=== PATIENT | male | born 1965 | race Caucasian/White ===

== ENCOUNTER → 2017-12-15 13:35 | Outpatient (REF) | payer MEDICAID, SELFPAY ==
[2017-12-15 21:59] LABS: Amphetamine/Metha Screen,Urine Negative ng/mL (<1000); Barbiturates Screen,Urine Negative ng/mL (<200); Benzodiazepines Screen,Urine Negative ng/mL (200); Cannabinoid Screen,Urine Negative ng/mL (<50); Cocaine Screen,Urine Negative ng/g (<300); Methadone Screen,Urine Negative ng/mL (<300)
[2017-12-15 22:27] LABS: Opiate Screen,Urine Negative ng/mL (<300); Phencyclidine Screen,Urine Negative ng/mL (<25)
== END ==
LOC: LAB 13:35
PROVIDERS: Visit Provider Emergency Medicine
DX: Z79.899 Other long term (current) drug therapy (principal)
CPT/HCPCS: 80305

== ENCOUNTER → 2018-03-11 13:25 | Outpatient (CLI) | payer MEDICAID, SELFPAY ==
[2018-03-11 18:06] LABS: Basophils # 0.1 K/mm3 (0-0.2); Basophils % 0.7 % (0.1-2.0); Eosinophils # 0.1 K/mm3 (0.0-0.4); Eosinophils % 1.2 % (0.1-12.0); Hematocrit 46.8 % (42.0-52.0); Hemoglobin 14.8 g/dL (14.1-18.0); Lymphocytes # 2.7 K/mm3 (0.7-4.5); Mean Corpuscular HGB Conc 31.7 g/dL (31.8-35.4); Mean Corpuscular Hemoglobin 28.4 pg (27.0-31.2); Mean Corpuscular Volume 89.9 fl (80-94); Mean Platelet Volume 8.5 fl (7.4-10.4); Monocytes # 0.5 K/mm3 (0.1-1.0); Monocytes % 6.2 % (1.7-9.3); Neutrophils # 5.4 K/mm3 (1.8-7.8); Neutrophils % 61.1 % (37.0-80.0); Platelet Count 341 K/mm3 (142-424); Red Blood Count 5.21 M/mm3 (4.60-6.20); Red Cell Distribution Width 14.3 % (11.5-17.5); White Blood Count 8.8 K/mm3 (4.8-10.8)
[2018-03-11 18:30] LABS: Alanine Aminotransferase 16 U/L (12-78); Albumin Level 3.8 gm/dL (3.4-5.0); Alkaline Phosphatase 111 U/L (46-116); Anion Gap 18.5 mEq/L (5-15); Aspartate Amino Transferase 10 U/L (15-37); Bilirubin,Total 0.3 mg/dL (0.2-1.0); Blood Urea Nitrogen 28 mg/dL (7-18); Calcium 10.3 mg/dL (8.5-10.1); Carbon Dioxide 22 mmol/L (21.0-32.0); Chloride 94 mmol/L (98-107); Chol/HDL Ratio 10.3 (1-3.5); Cholesterol 351 mg/dL (140-200); Estimated Glomerular Filt Rate 32 ml/min (>60); GFR (African American) 38 ML/MIN (>60); Globulin 3.9 gm/dl (1.3-3.2); HDL Cholesterol 34 mg/dL (27-67); Potassium 4.5 mmoL/L (3.5-5.1); Sodium 130 mmol/L (136-145); Total Protein,Serum 7.7 gm/dL (6.4-8.2)
[2018-03-11 18:37] LABS: Glucose 482 mg/dL (74-106); Triglycerides 527 mg/dL (30-200)
[2018-03-11 19:09] LABS: Hemoglobin A1C 12.2 % (0.0-7.0)
== END ==
PROVIDERS: Visit Provider Emergency Medicine
DX: E11.9 Type 2 diabetes mellitus without complications (principal); Z79.891 Long term (current) use of opiate analgesic
CPT/HCPCS: 80053; 80061; 83036; 85025

== ENCOUNTER → 2018-03-16 13:33 | Outpatient (REF) | payer MEDICAID, SELFPAY ==
[2018-03-16 17:48] LABS: Anion Gap 17.3 mEq/L (5-15); Blood Urea Nitrogen 25 mg/dL (7-18); Carbon Dioxide 24 mmol/L (21.0-32.0); Chloride 94 mmol/L (98-107); Creatinine,Serum 1.66 mg/dL (0.70-1.30); Estimated Glomerular Filt Rate 44 ml/min (>60); GFR (African American) 53 ML/MIN (>60); Potassium 4.3 mmoL/L (3.5-5.1); Sodium 131 mmol/L (136-145)
[2018-03-16 17:54] LABS: Glucose 408 mg/dL (74-106)
[2018-03-16 19:01] LABS: Amphetamine/Metha Screen,Urine Negative ng/mL (<1000); Barbiturates Screen,Urine Negative ng/mL (<200); Benzodiazepines Screen,Urine Negative ng/mL (200); Cannabinoid Screen,Urine Negative ng/mL (<50); Cocaine Screen,Urine Negative ng/g (<300); Methadone Screen,Urine Negative ng/mL (<300); Opiate Screen,Urine Negative ng/mL (<300); Phencyclidine Screen,Urine Negative ng/mL (<25)
== END ==
LOC: LAB 13:33
PROVIDERS: Visit Provider Emergency Medicine
DX: E11.9 Type 2 diabetes mellitus without complications (principal)
CPT/HCPCS: 80048; 80305

== ENCOUNTER 2018-03-20 12:59 | Inpatient (IN) ==
--- NOTE | 2018-03-20 13:14 | Emergency Department Note ---
ED Disposition Clinical Impression: STEMI (ST elevation myocardial infarction), Diabetes, Hyperlipidemia, Tobacco use disorder Disposition: Still a Patient Condition on Discharge: Fair - Critical Care Critical Care Time: No Attestation: On 03/20/18, the high probability of a clinically significant, sudden or life threatening deterioration of the following system(s) required my full and direct attention, intervention and personal management. The time I documented below is in addition to time spent performing reported procedures but includes the following listed in this critical care notation. Medical Decision Making - Uziel Inquiry Pt receiving controlled substance: No Uziel was queried for this patient: No Vital Signs: 03/20/18 13:00 Temperature 97.7 F Temperature Source Oral Pulse Rate [Right Brachial] 99 H Respiratory Rate 22 Blood Pressure [Right Arm] 168/70 Blood Pressure Mean [Right Arm] 102 Blood Pressure Source [Right Arm] Manual Cuff/ Auscultation Blood Pressure Position [Right Arm] Sitting 02 Sat by Pulse Oximetry 98 Oxygen Delivery Method Room Air - Lab Data Lab Results 03/20/18 13:53: Activated Clotting Time 370 H* Orders (Tests/Meds): ED MEDICATIONS Generic Name Dose Route Start Last Admin Trade Name Freq PRN Reason Stop Dose Admin Hydrocodone Bitart/Acetaminophen 1 tab 03/20/18 14:42 Jeffers 5/325mg Tablet PO 04/19/18 14:41 Q4HP PRN Mild Pain Hydrocodone Bitart/Acetaminophen 2 tab 03/20/18 14:42 Jeffers 5/325mg Tablet PO 04/19/18 14:41 Q4HP PRN Moderate to Severe Pain Aspirin 81 mg 03/21/18 09:00 Aspirin 81mg Enteric Coated Tablet PO 04/20/18 08:59 DAILY CYNDEE Famotidine 20 mg 03/20/18 21:00 Pepcid 20mg Tablet PO 04/19/18 20:59 HS CYNDEE Fentanyl Citrate 50 mcg 03/20/18 14:05 03/20/18 14:08 Fentanyl 100mcg/2ml Vial IV 03/21/18 14:05 100 mcg Q3MINP PRN Administration Moderate to Severe Pain Fentanyl Citrate 25 mcg 03/20/18 14:05 Fentanyl 250mcg/5ml Vial IV 03/21/18 14:05 Q3MINP PRN Moderate to Severe Pain Fentanyl Citrate 50 mcg 03/20/18 14:05 Fentanyl 250mcg/5ml Vial IV 03/21/18 14:05 Q3MINP PRN Moderate to Severe Pain Fentanyl Citrate 25 mcg 03/20/18 14:05 Fentanyl 100mcg/2ml Vial IV 03/21/18 14:05 Q3MINP PRN Moderate to Severe Pain Fentanyl Citrate 50 mcg 03/20/18 13:39 Fentanyl 100mcg/2ml Vial IV 03/21/18 13:39 Q3MINP PRN Moderate to Severe Pain Fentanyl Citrate 25 mcg 03/20/18 13:39 Fentanyl 250mcg/5ml Vial IV 03/21/18 13:39 Q3MINP PRN Moderate to Severe Pain Fentanyl Citrate 25 mcg 03/20/18 13:39 Fentanyl 100mcg/2ml Vial IV 03/21/18 13:39 Q3MINP PRN Moderate to Severe Pain Fentanyl Citrate 50 mcg 03/20/18 13:39 Fentanyl 250mcg/5ml Vial IV 03/21/18 13:39 Q3MINP PRN Moderate to Severe Pain Flumazenil 0.2 mg 03/20/18 14:05 Romazicon 0.1mg/Ml 5ml Vial IV 03/20/18 23:00 NEEDED PRN Sedation Flumazenil 0.2 mg 03/20/18 13:39 Romazicon 0.1mg/Ml 5ml Vial IV 03/20/18 23:00 NEEDED PRN Sedation Heparin Sodium (Porcine) 10,000 unit 03/20/18 14:05 Heparin 1,000 Units/Ml 10ml Vial (Cable Way Operator) IV 03/20/18 18:05 NEEDED PRN Emergency Box [employer] Trades Worker Heparin Sodium (Porcine) 10,000 unit 03/20/18 13:39 Heparin 1,000 Units/Ml 10ml Vial (Cable [address] Operator) IV 03/20/18 17:39 NEEDED PRN Emergency Box [employer] Tr[employer] Worker Heparin Sodium/Dextrose 500 mls @ 26 mls/hr 03/20/18 13:45 03/20/18 13:44 Heparin 25,000 Units In D5w 500ml Premix IV 04/19/18 13:44 26 mls/hr .[id number] CYNDEE Administration Nitroglycerin/Dextrose 250 mls @ 1.5 mls/hr 03/20/18 13:45 03/20/18 13:45 Nitroglycerin 50mg/250ml D5w IV 04/19/18 13:44 5 mcg/min .Q24H CYNDEE 1.5 mls/hr Administration Protocol 5 MCG/MIN Sodium Chloride 1,000 mls @ 25 mls/hr 03/20/18 14:15 03/20/18 14:08 Sod Chlor 0.9% 1000ml Bag IV 03/21/18 14:05 25 mls/hr .Q25H CYNDEE Administration Eptifibatide 100 mls @ 6.8 mls/hr 03/20/18 14:10 03/20/18 14:14 Integrilin 200mg/100ml Bottle IV 03/21/18 04:52 6.8 mls/hr .[id number] ONE Administration Sodium Chloride 1,000 mls @ 25 mls/hr 03/20/18 13:45 Sod Chlor 0.9% 1000ml Bag IV 03/21/18 13:39 .Q25H CYNDEE Insulin Human Lispro 0 unit 03/20/18 16:30 Humalog 100 Units/Ml 3ml Vial (Ssi) SQ 04/19/18 16:29 ACHS CYNDEE Protocol Levothyroxine Sodium 50 mcg 03/21/18 07:00 Synthroid 50mcg (0.05mg) Tablet PO 04/20/18 06:59 DAILYDM CYNDEE Midazolam HCl 1 mg 03/20/18 14:05 03/20/18 14:08 Midazolam 1mg/Ml 5ml Vial IV 03/21/18 14:05 6 mg Q3MINP PRN Administration Sedation Midazolam HCl 1 mg 03/20/18 14:05 Midazolam 2mg/2ml Vial IV 03/21/18 14:05 Q3MINP PRN Sedation Midazolam HCl 1 mg 03/20/18 13:39 Midazolam 1mg/Ml 5ml Vial IV 03/21/18 13:39 Q3MINP PRN Sedation Midazolam HCl 1 mg 03/20/18 13:39 Midazolam 2mg/2ml Vial IV 03/21/18 13:39 Q3MINP PRN Sedation Miscellaneous 1 each 03/20/18 14:42 Consider Dual Antiplatelet Therapy For Stent * 04/19/18 14:41 NEEDED PRN Reminder for s/p stent Naloxone HCl 0.4 mg 03/20/18 14:05 Narcan 0.4mg/Ml Vial IV 03/21/18 14:05 Q5MINP PRN Decreased respirations Naloxone HCl 0.4 mg 03/20/18 13:39 Narcan 0.4mg/Ml Vial IV 03/21/18 13:39 Q5MINP PRN Decreased respirations Nitroglycerin 800 mcg 03/20/18 14:05 03/20/18 14:19 Nitroglycerin 800mcg/8ml Syr (Cable [address] Operator) IV 03/21/18 14:05 800 mcg NEEDED PRN Administration Emergency Box [employer] Trades Worker Nitroglycerin 800 mcg 03/20/18 13:39 Nitroglycerin 800mcg/8ml Syr (Cable [address] Operator) IV 03/21/18 13:39 NEEDED PRN Emergency Box Electronic Instrument Trades Worker Ticagrelor 90 mg 03/20/18 21:00 Brilinta 90mg Tablet PO 04/19/18 20:59 BID CYNDEE Discontinued Medications Generic Name Dose Route Start Last Admin Trade Name Freq PRN Reason Stop Dose Admin Aspirin 324 mg 03/20/18 13:41 03/20/18 13:44 Aspirin 81mg Chewable Tablet PO 03/20/18 13:42 324 mg ONCE ONE Administration Diphenhydramine HCl 50 mg 03/20/18 14:05 Benadryl 50mg/1ml Vial IV 03/20/18 14:06 ONCE ONE Diphenhydramine HCl 50 mg 03/20/18 13:39 Benadryl 50mg/1ml Vial IV 03/20/18 13:40 ONCE ONE Heparin Sodium (Porcine) 10,000 unit 03/20/18 13:41 03/20/18 13:44 Heparin Sodium 5,000 Units/Ml Vial IV 03/20/18 13:42 10,000 unit ONCE ONE Administration Heparin Sodium/Sodium Chloride 3,000 unit 03/20/18 14:05 03/20/18 14:07 Heparin 1000 Units/500ml Ns (Cable [address] Operator) IV 03/20/18 14:06 3,000 unit ONCE ONE Administration Heparin Sodium/Sodium Chloride 3,000 unit 03/20/18 13:39 Heparin 1000 Units/500ml Ns (Cable [address] Operator) IV 03/20/18 13:40 ONCE ONE Sodium Chloride 1,000 mls @ 999 mls/hr 03/20/18 13:45 03/20/18 13:44 Sod Chlor 0.9% 1000ml Bag IV 03/20/18 14:45 999 mls/hr .Q1H1M CYNDEE Administration Iopamidol 240 ml 03/20/18 14:42 03/20/18 14:43 Rad-Isovue 370; 150ml IV 03/20/18 14:43 240 ml ONCE ONE Administration Lidocaine HCl 20 ml 03/20/18 14:05 03/20/18 14:07 Lidocaine 1% 20ml Mdv IJ 03/20/18 14:06 20 ml ONCE ONE Administration Lidocaine HCl 20 ml 03/20/18 13:39 Lidocaine 1% 20ml Mdv IJ 03/20/18 13:40 ONCE ONE Ticagrelor 90 mg 03/20/18 13:41 03/20/18 13:44 Brilinta 90mg Tablet PO 03/20/18 13:42 90 mg ONCE ONE Administration Verapamil HCl 2.5 mg 03/20/18 14:05 Verapamil 2.5mg/Ml 2ml Vial IV 03/20/18 14:06 ONCE ONE Verapamil HCl 2.5 mg 03/20/18 13:39 Verapamil 2.5mg/Ml 2ml Vial IV 03/20/18 13:40 ONCE ONE ORDERS Category Date Time Status Consult to Cardiac Rehabilitation [CONS] Routine Cons 03/20/18 14:42 Active CA echo 2d congenital Routine Exams 03/21/18 06:00 Ordered Basic Metabolic Panel Routine Lab 03/21/18 06:00 Ordered - ECG Data Tracing #1 Normal sinus rhythm 81/min ST elevation in inferior leads with reciprocal changes in the lateral leads, NOTIFIED interventional cardiology Dr. Kaur. ECG initial impression date: 03/20/18 ECG initial impression time: 12:50 Medical Decision Narrative: Again the patient is started on ecasa, heparin iv 10,000 units, nitroglycerin drip morphine IV and IV fluids degrees of wrist pain from 06/10-02/08. 1300 i SPOKE WITH dR Kaur THE GAS PUMPER. 1330 THE PATIENT WAS TAKEN TO THE ELECTRICAL LINE MECHANIC. 1336 THE TROPONIN REPORTED 4.06 Chest Pain HPI - General Chief Complaint: Chest Pain Stated Complaint: acute onset cp Time Seen by Provider: 03/20/18 13:00 Mode of Arrival: Ambulatory Limitations: No Limitations Description of Symptoms (Recalled from ER Triage Doc. by RN): pt presents after having began experiencing chest pain yesterday while at home. pt describes the pain as pressure and sharp at the same time. - History of Present Illness HPI narrative: 52 years old white male smoker diabetic and hyperlipidemic. Yesterday at 8 PM he developed an ongoing left upper chest pain. He arrived to the ED at 1247 obtained a 12-lead EKG that was positive for an ST elevation IWMI. Cable Way Operator was activated AND I contacted the on-call code inspector Dr. Mejias at 1300 and he is on his way to the Cable [address] Operator. She was started on 10,000 units of heparin, IV fluids, nitroglycerin drip and morphine IV. I spoke with his father and updated him about the sITUATION. MD complaint: chest pain indicative of cardiac Onset (ago): hour(s) (17 HOURS.) Time: 20:00 (YESTERDAY) Duration: constant Activity at onset: during rest Pain location: left chest Severity: severe Quality: sharp Pain radiation: none Relieving factors: nothing Exacerbating factors: exertion Associated symptoms: diaphoresis (He is deaf), other Risk Factors for CAD: Hypertension, Hypercholesterolemia, Family Hx of CAD, Diabetes, Smoking Treatments prior to or on arrival for Cardiac Chest Pain: aspirin, nitroglycerin - Related Data Home Medications Medication Instructions Recorded Confirmed colchicine 0.6 mg tablet 0.6 mg PO DAILY PRN tab 12/15/17 03/20/18 hydroxyzine HCl 50 mg tablet 100 mg PO Q6H PRN tab 12/15/17 03/20/18 ALPRAZolam [Xanax 1mg tab] 1 mg PO TID 03/20/18 03/20/18 Atorvastatin Calcium [Lipitor 80mg 80 mg PO QHS 03/20/18 03/20/18 Tablet] Blood Sugar Diagnostic [Premier 0 strip .ROUTE .MEDSUPPLY 03/20/18 03/20/18 Test Strip] Budesonide/Formoterol Fumarate 2 puff INHALATION BID 03/20/18 03/20/18 [Symbicort 160-4.5 Mcg Inhaler] Carvedilol [Carvedilol 6.25mg Tab] 6.25 mg PO DAILY 03/20/18 03/20/18 Citalopram Hydrobromide [Celexa] 40 mg PO DAILY 03/20/18 03/20/18 Levothyroxine Sodium [Synthroid 50 mcg PO DAILY 03/20/18 03/20/18 50mcg (0.05mg) tab] Pantoprazole Sodium [Protonix 40mg 40 mg PO QAM 03/20/18 03/20/18 tablet] lamoTRIgine [Lamotrigine] 25 mg PO DAILY 03/20/18 03/20/18 raNITIdine HCl [Ranitidine HCl] 150 mg PO DAILY 03/20/18 03/20/18 Previous Rx's Medication Instructions Recorded fluticasone 50 mcg/actuation nasal 1 spray INTRANASAL BID PRN #16 g 02/09/18 spray,suspension Allergies Allergy/AdvReac Type Severity Reaction Status Date / Time codeine [CODEINE] Allergy Unknown ITCHING, Verified 03/20/18 15:58 N/V opiates Allergy Mild Rash Uncoded 03/16/18 11:53 [facility] History I have reviewed the patient's past medical history: Yes Medical History: Reports:: Anxiety, Depression, Diabetes Mellitus Type 2, Hyperlipidemia, Hypertension Other Surgeries: Yes: Angiogram, Colonoscopy, Other Amputation: No Fractures: Yes Comment: fx femur - Social History Educational Level: Completed High School Smoking Status: Never smoker Tobacco Type: cigarettes # Packs/Day (cigarettes): 20 Alcohol Intake: never Substance Use Type: denies use - Psychiatric History Expresses thoughts of harming self/others: None Suicide Plan Description: No Plan Pschychiatric History:: Reports:: Anxiety, Depression Family Hx:: Heart Attack, Coronary Artery Disease ROS Obtained: Yes All systems reviewed & no additional complaints Physical Exam - General General appearance: alert, other (He is diaphoretic.) - Head Head exam: atraumatic, normocephalic, normal inspection - Eye Eye exam: Present: normal appearance, PERRL, EOMI - ENT ENT exam: Present: normal exam, normal oropharynx, mucous membranes moist, TM's normal bilaterally, normal external ear exam - Neck Neck exam: Present: normal inspection, full ROM, trachea midline. Absent: meningismus, lymphadenopathy - Chest Chest inspection: Present: normal inspection, symmetric chest wall rise. Absent : tenderness - Respiratory Respiratory exam: Present: normal lung sounds bilaterally. Absent: respiratory distress - Cardiovascular Cardiovascular exam: Present: regular rate, normal rhythm. Absent: JVD - Abdominal Exam Abdominal exam: Present: soft, normal bowel sounds. Absent: distention, tenderness, guarding - Extremities Exam Extremities exam: Present: normal inspection, full ROM, normal capillary refill. Absent: calf tenderness - Back Exam Back exam: Present: normal inspection. Absent: tenderness - Neurological Exam Neurological exam: Present: alert, oriented X3, CN II-XII intact, motor sensory deficit, reflexes normal - Psychiatric Psychiatric exam: Present: normal affect, normal mood - Skin Skin exam: Present: warm, intact, normal color, diaphoresis
[2018-03-20 16:45] LABS: Basophils # 0.1 K/mm3 (0-0.2); Basophils % 0.5 % (0.1-2.0); Eosinophils # 0.2 K/mm3 (0.0-0.4); Eosinophils % 1.7 % (0.1-12.0); Hematocrit 47.2 % (42.0-52.0); Hemoglobin 15.4 g/dL (14.1-18.0); Lymphocytes # 3.2 K/mm3 (0.7-4.5); Lymphocytes % 28.9 K/mm3 (10-50); Mean Corpuscular HGB Conc 32.7 g/dL (31.8-35.4); Mean Corpuscular Hemoglobin 28.6 pg (27.0-31.2); Mean Corpuscular Volume 87.6 fl (80-94); Mean Platelet Volume 7.5 fl (7.4-10.4); Monocytes # 0.6 K/mm3 (0.1-1.0); Monocytes % 5.1 % (1.7-9.3); Neutrophils # 7.1 K/mm3 (1.8-7.8); Neutrophils % 63.9 % (37.0-80.0); Platelet Count 282 K/mm3 (142-424); Red Blood Count 5.39 M/mm3 (4.60-6.20); Red Cell Distribution Width 14.5 % (11.5-17.5); White Blood Count 11.1 K/mm3 (4.8-10.8)
[2018-03-21 05:47] LABS: Anion Gap 13.2 mEq/L (5-15); Potassium 4.2 mmoL/L (3.5-5.1)
--- NOTE | 2018-03-21 07:58 | Pharmacy Consult Notes ---
[facility] Pharmacy VTE Monitoring - Patient Demographics Admission date: 03/20/18 Report Date: 03/21/18 Time: 07:57 Allergies/Adverse Reactions: Patient Allergies codeine [CODEINE] Allergy (Unknown, Verified 03/20/18 15:58) ITCHING, N/V opiates Allergy (Mild, Uncoded 03/16/18 11:53) Rash Height: 1.75 m Weight: 113.653 kg Patient Problems: Current Active Problems STEMI (ST elevation myocardial infarction) (Acute) Diabetes (Acute) Hyperlipidemia (Acute) Tobacco use disorder (Acute) - VTE Risk Labs: VTE Related Lab Results Hgb 15.4 g/dL (14.1-18.0) 03/20/18 13:05 Hct 47.2 % (42.0-52.0) 03/20/18 13:05 Plt Count 282 K/mm3 (142-424) 03/20/18 13:05 BUN 18 mg/dL (7-18) 03/21/18 05:15 Creatinine 1.45 mg/dL (0.70-1.30) H 03/21/18 05:15 Estimated Creat Clear 97 mL/min (0-300) 03/21/18 05:15 VTE Score: 5 VTE Risk Level: Low Risk - Prophylaxis VTE Prophylaxis Ordered?: Yes Types of VTE Prophylaxis: Pharmacological Pharmacologic Type: Heparin - VTE Diagnosis Confirmed Treatment or plan recommended: Continue Current Treatment
--- NOTE | 2018-03-21 09:06 | History & Physical Report ---
*Admission Date: 03/20/18 *Chief complaint: chest pain *History of present illness: this wm with progressive chest pain [facility] History Medical History: Reports:: Anxiety, Congestive Heart Failure, Depression, Diabetes Mellitus Type 2, Hyperlipidemia, Hypertension, MRSA Denies:: Cancer, Diabetes Mellitus Type 1 Other Medical History: Reports: Glaucoma, Hypothyroidism Laterality Cases: Left: Other, Bilateral: Tonsillectomy Other Surgeries: Yes: Angiogram, Cholecystectomy, Colonoscopy, Other Amputation: No Fractures: Yes - *Social History Educational Level: Completed High School Smoking Status: Never smoker Tobacco Type: cigarettes # Packs/Day (cigarettes): 20 Alcohol Intake: never Substance Use Type: denies use Occupational Status: unemployed Housing: house Household Members: family - Psychiatric History Expresses thoughts of harming self/others: None Suicide Plan Description: No Plan Pschychiatric History:: Reports:: Anxiety, Depression *Family Hx:: Heart Attack, Coronary Artery Disease Meds Home Medications Medication Instructions Recorded Confirmed Type colchicine 0.6 mg tablet 0.6 mg PO DAILY PRN tab 12/15/17 03/20/18 History hydroxyzine HCl 50 mg tablet 100 mg PO Q6H PRN tab 12/15/17 03/20/18 History ALPRAZolam [Xanax 1mg tab] 1 mg PO TID 03/20/18 03/20/18 History Atorvastatin Calcium [Lipitor 80mg 80 mg PO HS 03/20/18 03/21/18 History Tablet] Budesonide/Formoterol Fumarate 2 puff INHALATION BID 03/20/18 03/20/18 History [Symbicort 160-4.5 Mcg Inhaler] Carvedilol [Carvedilol 6.25mg Tab] 6.25 mg PO DAILY 03/20/18 03/20/18 History Citalopram Hydrobromide [Celexa] 40 mg PO DAILY 03/20/18 03/20/18 History Levothyroxine Sodium [Synthroid 50 mcg PO DAILY 03/20/18 03/20/18 History 50mcg (0.05mg) tab] Pantoprazole Sodium [Protonix 40mg 40 mg PO DAILY 03/20/18 03/21/18 History tablet] lamoTRIgine [Lamotrigine] 25 mg PO DAILY 03/20/18 03/20/18 History raNITIdine HCl [Ranitidine HCl] 150 mg PO DAILY 03/20/18 03/20/18 History Fluticasone Propionate [Flonase 1 spr NS BID 03/21/18 03/21/18 History 50mcg nasal spray 16gm] Lisinopril/Hydrochlorothiazide 1 tab PO DAILY 03/21/18 03/21/18 History [Lisinopril-Hctz 20-25 mg Tab] Metformin HCl [Metformin 500mg 500 mg PO BID 03/21/18 03/21/18 History Tablet] Allergies Allergy/AdvReac Type Severity Reaction Status Date / Time codeine [CODEINE] Allergy Unknown ITCHING, Verified 03/20/18 15:58 N/V opiates Allergy Mild Rash Uncoded 03/16/18 11:53 Exam Vital signs and Labs for Last 24 Hours: Temp Pulse Resp BP Pulse Ox 98.8 F 81 21 121/88 97 03/21/18 04:00 03/21/18 07:00 03/21/18 07:00 03/21/18 07:00 03/21/18 07:00 Laboratory Results - last 24 hr 03/20/18 13:05: WBC 11.1 H, RBC 5.39, Hgb 15.4, Hct 47.2, MCV 87.6, MCH 28.6, MCHC 32.7, RDW 14.5, Plt Count 282, MPV 7.5, Neut % (Auto) 63.9, Lymph % (Auto) 28.9, [place] % (Auto) 5.1, Eos % (Auto) 1.7, Baso % (Auto) 0.5, Neut # (Auto) 7.1 , Lymph # (Auto) 3.2, [place] # (Auto) 0.6, Eos # (Auto) 0.2, Baso # (Auto) 0.1 03/20/18 13:05: Sodium 126 L, Potassium 4.0, Chloride 92 L, Carbon Dioxide 26, Anion Gap 12.0, BUN 18, Creatinine 1.67 H, Estimated Creat Clear 86, Estimated GFR 44 L, Est GFR ( Amer) 53 L, Glucose 363 H, Troponin I 4.06 H 03/20/18 13:53: Activated Clotting Time 370 H* 03/20/18 17:12: POC Glucose 336 H* 03/20/18 19:57: POC Glucose 271 H 03/21/18 05:15: Sodium 130 L, Potassium 4.2, Chloride 96 L, Carbon Dioxide 25, Anion Gap 13.2, BUN 18, Creatinine 1.45 H, Estimated Creat Clear 97, Estimated GFR 51 L, Est GFR ( Amer) 62, Glucose 280 H D 03/21/18 06:00: POC Glucose 273 H I & O for Last 24 hours: Intake & Output 03/18/18 03/19/18 03/20/18 03/21/18 11:59 11:59 11:59 11:59 Intake Total 2475 / 2475 Output Total 1350 / 1350 Balance 1125 / 1125 Weight 250 lb 9 oz H&P: Result - Labs Labs: Short CBC 03/20/18 Range/Units 13:05 WBC 11.1 H (4.8-10.8) K/mm3 Hgb 15.4 (14.1-18.0) g/dL Hct 47.2 (42.0-52.0) % Plt Count 282 (142-424) K/mm3 BMP 03/20/18 03/21/18 13:05 05:15 Sodium 126 L 130 L Potassium 4.0 4.2 Chloride 92 L 96 L Carbon Dioxide 26 25 BUN 18 18 Creatinine 1.67 H 1.45 H Glucose 363 H 280 H D Cardiac Enzymes 03/20/18 Range/Units 13:05 Troponin I 4.06 H (0.00-0.06) ng/ml
--- NOTE | 2018-03-21 12:06 | Consult Report ---
History of Present Illness Consult date: 03/21/18 Requesting physician: Chacho Gutierrez Consult reason: chest pain Chief complaint: Chest pain and shortness of breath Additional Medical History:: 1. ST elevation myocardial Infarction: 03/20/18 a. PTCA with stent placement of the mid first obtuse marginal branch of the circumflex (03/20/18): Dr. Trujillo b. Elevated troponin 4.06 (03/20/18) b. Left heart catheterization (09/30/17): Normal coronaries. 2. Chest pain 3. Diabetes Mellitus Types 2 a. Questionable on medication compliance. 4. Congestive heart failure a. Echoardiogram (09/17). Revealed mildly enlarged left atrium, normal left ventricular size, mid concentric left ventricular hypertrophy, visually estimated EF approximately 50% with segmental wall motion abnormality, Doppler evidence of impaired LV relaxation seen. Mild mitral and tricuspid regurgitation noted. b. Elevated creatinine 1.45 (03/21/17). 5. Hyperlipidemia a. Patient currently taking atorvastatin 80 mg 1 daily. 6. Essential hypertension. 7. Tobacco use a. Smokes 1 pack per day for unknown years. 8. Depression 9. Bipolar disorder History of present illness: 52 year old white male presented to the ER with chest pain and shortness of breath. Pt stated that he had been having chest pressure radiating to the left upper arm for the past 12 hours. Pt denied dizziness or palpitations. Denied nausea or vomiting. EKG in ER revealed Normal sinus with ST elevation with heart rate of 81bpm. Serial cardiac enzymes were performed and revealed an elevated troponin of 4.06. Initial CXR revealed borderline cardiomegaly with no acute process. Left heart catheterization was performed via Dr. Trujillo (03/20/18). ANGIOGRAPHIC RESULTS: 1. The left main artery angiographically normal 2. The left anterior descending artery angiographically normal 3. The circumflex artery had a high first obtuse marginal branch which was subtotally occluded in its midportion. You could see truncation of the first obtuse marginal branch and its distal portion as well as a branch which came off after the subtotal occlusion. 4. The right coronary artery angiographically normal 5. The CHOI ventriculogram reveals normal left ventricular function 6. The left ventricular end-diastolic pressure 10 After diagnostic catheterization was performed I went in with a 3.5 LAD catheter and performed angioplasty and stenting to the mid first obtuse marginal branch of the circumflex as well as angioplasty of the branch that the stent cross. Resulted in mandaeism of normal T3 flow. Truncation of the distal obtuse marginal branch and its branch continued. This is despite nitroglycerin usage as well as ballooning in the distal portion. This truncation of the vessel was seen even prior to stenting. There also appear to be a small potential clot in the very distal left anterior descending. IMPRESSION: 1. Severe 100% occlusion of the mid first obtuse marginal branch of the circumflex 2. Normal left ventricular systolic function 3. Normal left ventricular end-diastolic pressure 4. Successful angioplasty and stenting of the mid first obtuse marginal branch of the circumflex. Remained distal truncation of the first obtuse marginal branch and branch in its distal portion 5. Resolute [place] 2.75x26 stent with dilation of the branch with a 2.0 x 20 balloon PLAN: 1. Brilinta 90mg po bid 2. Integrilin drip for 12 hours Pt stated he is feeling much better. Right groin was accessed. Site is bruised and slightly tender. No drainage noted from the site. Good pounding femoral pulse noted. Pt noted as hypotensive this am. [facility] History Medical History: Reports:: Anxiety, Congestive Heart Failure, Depression, Diabetes Mellitus Type 2, Hyperlipidemia, Hypertension, MRSA Denies:: Cancer, Diabetes Mellitus Type 1 Other Medical History: Reports: Glaucoma, Hypothyroidism Laterality Cases: Left: Other, Bilateral: Tonsillectomy Other Surgeries: Yes: Angiogram, Cholecystectomy, Colonoscopy, Coronary Stent ( Mid first obtuse marginal branch of the circumflex (03/20/18)), Other Amputation: No Fractures: Yes - *Social History Educational Level: Completed High School Smoking Status: Never smoker Tobacco Type: cigarettes # Packs/Day (cigarettes): 20 Alcohol Intake: never Substance Use Type: denies use Occupational Status: unemployed Housing: house Household Members: family - Psychiatric History Expresses thoughts of harming self/others: None Suicide Plan Description: No Plan Pschychiatric History:: Reports:: Anxiety, Depression *Family Hx:: Heart Attack, Coronary Artery Disease Meds Home Medications Medication Instructions Recorded Confirmed Type colchicine 0.6 mg tablet 0.6 mg PO DAILY PRN tab 12/15/17 03/20/18 History hydroxyzine HCl 50 mg tablet 100 mg PO Q6H PRN tab 12/15/17 03/20/18 History ALPRAZolam [Xanax 1mg tab] 1 mg PO TID 03/20/18 03/20/18 History Atorvastatin Calcium [Lipitor 80mg 80 mg PO HS 03/20/18 03/21/18 History Tablet] Budesonide/Formoterol Fumarate 2 puff INHALATION BID 03/20/18 03/20/18 History [Symbicort 160-4.5 Mcg Inhaler] Carvedilol [Carvedilol 6.25mg Tab] 6.25 mg PO DAILY 03/20/18 03/20/18 History Citalopram Hydrobromide [Celexa] 40 mg PO DAILY 03/20/18 03/20/18 History Levothyroxine Sodium [Synthroid 50 mcg PO DAILY 03/20/18 03/20/18 History 50mcg (0.05mg) tab] Pantoprazole Sodium [Protonix 40mg 40 mg PO DAILY 03/20/18 03/21/18 History tablet] lamoTRIgine [Lamotrigine] 25 mg PO DAILY 03/20/18 03/20/18 History raNITIdine HCl [Ranitidine HCl] 150 mg PO DAILY 03/20/18 03/20/18 History Fluticasone Propionate [Flonase 1 spr NS BID 03/21/18 03/21/18 History 50mcg nasal spray 16gm] Lisinopril [Lisinopril 20mg Tab] 20 mg PO HS 03/21/18 03/21/18 History Lisinopril/Hydrochlorothiazide 1 tab PO DAILY 03/21/18 03/21/18 History [Lisinopril-Hctz 20-25 mg Tab] Metformin HCl [Metformin 500mg 500 mg PO BID 03/21/18 03/21/18 History Tablet] Trazodone HCl 50 mg PO HS 03/21/18 03/21/18 History Allergies Allergy/AdvReac Type Severity Reaction Status Date / Time codeine [CODEINE] Allergy Unknown ITCHING, Verified 03/20/18 15:58 N/V Opioids - Morphine Analogues Allergy Rash Verified 03/21/18 10:52 Review of Systems - Review of Systems Review of systems:: pertinent systems reviewed and negative unless documented below - Constitutional Reports lack of energy - *Cardiovascular Reports chest pain, Reports chest pain at rest, Reports chest pain with activity , Reports shortness of breath, Reports shortness of breath with activity, Reports radiating jaw, neck or arm pain, Denies generalized swelling, Denies foot swelling - *Respiratory Reports shortness of breath, Denies stridor, Denies wheezing - *Gastrointestinal Denies abdominal pain, Denies belching, Denies difficulty swallowing - *Genitourinary Denies difficulty urinating - Integumentary/Breasts Denies lesions, Denies new lesions, Denies non-healing lesions - *Neurologic Reports weakness, Denies dizziness, Denies lack of coordination, Denies fainting Exam Vital signs and Labs for Last 24 Hours: Temp Pulse Resp BP Pulse Ox 98.8 F 75 20 82/57 96 03/21/18 04:00 03/21/18 11:35 03/21/18 11:35 03/21/18 11:35 03/21/18 11:35 Laboratory Results - last 24 hr 03/20/18 13:05: WBC 11.1 H, RBC 5.39, Hgb 15.4, Hct 47.2, MCV 87.6, MCH 28.6, MCHC 32.7, RDW 14.5, Plt Count 282, MPV 7.5, Neut % (Auto) 63.9, Lymph % (Auto) 28.9, [place] % (Auto) 5.1, Eos % (Auto) 1.7, Baso % (Auto) 0.5, Neut # (Auto) 7.1 , Lymph # (Auto) 3.2, [place] # (Auto) 0.6, Eos # (Auto) 0.2, Baso # (Auto) 0.1 03/20/18 13:05: Sodium 126 L, Potassium 4.0, Chloride 92 L, Carbon Dioxide 26, Anion Gap 12.0, BUN 18, Creatinine 1.67 H, Estimated Creat Clear 86, Estimated GFR 44 L, Est GFR ( Amer) 53 L, Glucose 363 H, Troponin I 4.06 H 03/20/18 13:53: Activated Clotting Time 370 H* 03/20/18 17:12: POC Glucose 336 H* 03/20/18 19:57: POC Glucose 271 H 03/21/18 05:15: Sodium 130 L, Potassium 4.2, Chloride 96 L, Carbon Dioxide 25, Anion Gap 13.2, BUN 18, Creatinine 1.45 H, Estimated Creat Clear 97, Estimated GFR 51 L, Est GFR ( Amer) 62, Glucose 280 H D 03/21/18 06:00: POC Glucose 273 H 03/21/18 11:09: POC Glucose 311 H* I & O for Last 24 hours: Intake & Output 03/18/18 03/19/18 03/20/18 03/21/18 23:59 23:59 23:59 23:59 Intake Total 1745 / 1745 730 / 730 Output Total 800 / 800 550 / 550 Balance 945 / 945 180 / 180 Weight 257 lb 6 oz 250 lb 9 oz - Constitutional no acute distress, obese - *Routine HEENT Exam Head: Present: normocephalic - *Routine Neck Exam Present: full ROM, normal carotid upstroke. Absent: JVD, carotid bruit, lymphadenopathy, swelling - Routine Chest/Breast/Axilla Exam Chest wall: Absent: mass - *Routine Respiratory Exam Present: accessory muscle use, CTA bilaterally. Absent: decreased breath sounds , respiratory distress, wheezes, crackles - *Routine Cardiovascular Exam Present: RRR, Normal S1, Normal S2. Absent: murmur, gallop, rubs, JVD - *Routine Abdominal Exam Present: firm. Absent: distended, guarding - *Routine Extremities Exam Present: full ROM, pulses intact, normal capillary refill. Absent: cyanosis, clubbing, edema - *Routine Skin Exam Present: intact, dry, warm, normal turgor. Absent: rash Comments: Right groin access noted with bruising and slight tenderness. No drainage noted from the right groin area. - *Routine Neurological Exam Present: alert, oriented X3, CN II-XII intact, normal reflexes, normal tone, normal speech Assessment and Plan (1) S/P PTCA (percutaneous transluminal coronary angioplasty) Current visit: Yes Status: Acute Category: Surgical Code(s): Z98.61 - Coronary angioplasty status (2) Hyperlipidemia Current visit: Yes Status: Acute Category: Medical Code(s): E78.5 - Hyperlipidemia, unspecified (3) STEMI (ST elevation myocardial infarction) Current visit: Yes Status: Acute Qualifiers: Involved coronary artery: other coronary artery Qualified Code(s): I21.29 - ST elevation (STEMI) myocardial infarction involving other sites Category: Medical Code(s): I21.3 - ST elevation (STEMI) myocardial infarction of unspecified site (4) Tobacco use disorder Current visit: Yes Status: Acute Category: Medical Code(s): F17.200 - Nicotine dependence, unspecified, uncomplicated (5) Hypertension Current visit: No Status: Acute Qualifiers: Hypertension type: essential hypertension Qualified Code(s): I10 - Essential (primary) hypertension Category: Medical Code(s): I10 - Essential (primary) hypertension (6) Anxiety Current visit: No Status: Chronic Category: Medical Code(s): F41.9 - Anxiety disorder, unspecified (7) Type 2 diabetes mellitus Current visit: No Status: Chronic Category: Medical Code(s): E11.9 - Type 2 diabetes mellitus without complications - Assessment and plan all Dx Assessment and Plan for all problems:: Plan 1. Left heart catheterization (03/20/18). PTCA with stent to the mid first obtuse marginal branch of the circumflex artery. 2. Obtain echocardiogram for LV function and valve status. 3. Aspirin 81mg po daily. 4. Brilinta 90mg po BID. 5. Tobacco cessation: advised and recommended. 6. Recommend to continue medication regimen as prescribed by Dr. Gutierrez.
--- NOTE | 2018-03-22 08:43 | Progress Note ---
Subjective Date: 03/22/18 Time: 08:41 Principal diagnosis: STEMI Interval history: 52-year-old white male in bed in no acute distress. Feeling better and is asking about going home. He has been using a nicotine patch while here and is hopeful that can quit smoking while using that at home. Exam Vital signs and Labs for Last 24 Hours: Temp Pulse Resp BP Pulse Ox 98.8 F 100 H 16 119/85 95 03/21/18 04:00 03/22/18 08:00 03/22/18 06:00 03/22/18 06:00 03/22/18 06:00 Laboratory Results - last 24 hr 03/21/18 11:09: POC Glucose 311 H* 03/21/18 16:53: POC Glucose 244 H 03/21/18 21:05: POC Glucose 321 H* 03/22/18 05:10: Sodium 136, Potassium 4.0, Chloride 98, Carbon Dioxide 27, Anion Gap 15.0, BUN 15, Creatinine 1.26, Estimated Creat Clear 109, Estimated GFR 60, Est GFR ( Amer) 73, Glucose 218 H D 03/22/18 05:13: POC Glucose 214 H I & O for Last 24 hours: Intake & Output 03/19/18 03/20/18 03/21/18 03/22/18 11:59 11:59 11:59 11:59 Intake Total 2475 / 2475 1480 / 1480 Output Total 1350 / 1350 2100 / 2100 Balance 1125 / 1125 -620 / -620 Weight 250 lb 9 oz 245 lb 3 oz - *Routine Respiratory Exam Present: CTA bilaterally - *Routine Cardiovascular Exam Present: RRR - *Routine Extremities Exam Absent: edema Progress Note: A&P (1) S/P PTCA (percutaneous transluminal coronary angioplasty) Status: Acute Current Visit: Yes (2) Hyperlipidemia Status: Acute Current Visit: Yes (3) STEMI (ST elevation myocardial infarction) Status: Acute Current Visit: Yes (4) Tobacco use disorder Status: Acute Current Visit: Yes (5) Hypertension Status: Acute Current Visit: No (6) Anxiety Status: Chronic Current Visit: No (7) Type 2 diabetes mellitus Status: Chronic Current Visit: No Assessment and Plan for All Diagnoses:: Patient is stable from a cardiac standpoint for discharge home. Home medications recommendations: Coreg 6.25 mg twice daily, lisinopril 5 mg daily, aspirin 81 mg daily, Brilinta 90 mg twice daily, atorvastatin 80 mg daily and nicotine patches daily. Recommendation to follow-up with us next week with a BMP the morning of the visit.
--- NOTE | 2018-03-22 08:51 | Discharge Summary ---
General - General Admission date:: 03/20/18 Discharge date: 03/22/18 HPI HPI: 52 year old white male presented to the ER with chest pain and shortness of breath. Pt stated that he had been having chest pressure radiating to the left upper arm for the past 12 hours. Pt denied dizziness or palpitations. Denied nausea or vomiting. EKG in ER revealed Normal sinus with ST elevation with heart rate of 81bpm. Serial cardiac enzymes were performed and revealed an elevated troponin of 4.06. Initial CXR revealed borderline cardiomegaly with no acute process. Hospital Course Hospital Course: ANGIOGRAPHIC RESULTS: 1. The left main artery angiographically normal 2. The left anterior descending artery angiographically normal 3. The circumflex artery had a high first obtuse marginal branch which was subtotally occluded in its midportion. You could see truncation of the first obtuse marginal branch and its distal portion as well as a branch which came off after the subtotal occlusion. 4. The right coronary artery angiographically normal 5. The CHOI ventriculogram reveals normal left ventricular function 6. The left ventricular end-diastolic pressure 10 After diagnostic catheterization was performed I went in with a 3.5 LAD catheter and performed angioplasty and stenting to the mid first obtuse marginal branch of the circumflex as well as angioplasty of the branch that the stent cross. Resulted in methodist of normal T3 flow. Truncation of the distal obtuse marginal branch and its branch continued. This is despite nitroglycerin usage as well as ballooning in the distal portion. This truncation of the vessel was seen even prior to stenting. There also appear to be a small potential clot in the very distal left anterior descending. IMPRESSION: 1. Severe 100% occlusion of the mid first obtuse marginal branch of the circumflex 2. Normal left ventricular systolic function 3. Normal left ventricular end-diastolic pressure 4. Successful angioplasty and stenting of the mid first obtuse marginal branch of the circumflex. Remained distal truncation of the first obtuse marginal branch and branch in its distal portion 5. Resolute [place] 2.75x26 stent with dilation of the branch with a 2.0 x 20 balloon PLAN: 1. Brilinta 90mg po bid 2. Integrilin drip for 12 hours Patient is stable from a cardiac standpoint for discharge home. Home medications recommendations: Coreg 6.25 mg twice daily, lisinopril 5 mg daily, aspirin 81 mg daily, Brilinta 90 mg twice daily, atorvastatin 80 mg daily and nicotine patches daily. Recommendation to follow-up with us next week with a BMP the morning of the visit. Objective Vital signs: Temp Pulse Resp BP Pulse Ox 98.8 F 100 H 16 119/85 95 03/21/18 04:00 03/22/18 08:00 03/22/18 06:00 03/22/18 06:00 03/22/18 06:00 no acute distress - *Routine HEENT Exam Head: Present: normocephalic Eye: Present: PERRL ENT: Present: mucous membranes moist - *Routine Neck Exam Present: full ROM - *Routine Respiratory Exam Present: CTA bilaterally - *Routine Cardiovascular Exam Present: RRR - *Routine Abdominal Exam Present: soft, normoactive bowel sounds - *Routine Extremities Exam Present: full ROM - *Routine Skin Exam Present: intact - *Routine Neurological Exam Present: alert, oriented X3, CN II-XII intact - Routine Psychiatric Exam Present: normal affect, normal thought process Results Labs on day of discharge: Labs from last 24 hours 03/22/18 03/22/18 03/21/18 05:13 05:10 21:05 Sodium 136 Potassium 4.0 Chloride 98 Carbon Dioxide 27 Anion Gap 15.0 BUN 15 Creatinine 1.26 Estimated Creat Clear 109 Estimated GFR 60 Est GFR ( Amer) 73 Glucose 218 H D POC Glucose 214 H 321 H* 03/21/18 03/21/18 16:53 11:09 Sodium Potassium Chloride Carbon Dioxide Anion Gap BUN Creatinine Estimated Creat Clear Estimated GFR Est GFR ( Amer) Glucose POC Glucose 244 H 311 H* - Additional Comments Rounded with Dr. Gutierrez all orders per Dr. Gutierrez DS: Diagnosis - Discharge Diagnosis (1) S/P PTCA (percutaneous transluminal coronary angioplasty) Status: Acute (2) Hyperlipidemia Status: Acute (3) STEMI (ST elevation myocardial infarction) Status: Acute (4) Tobacco use disorder Status: Acute (5) Hypertension Status: Acute (6) Anxiety Status: Chronic (7) Type 2 diabetes mellitus Status: Chronic Discharge Plan - Patient Discharge Instructions ACTIVITY: Continue current activity DIET: continue same diet Patient Instructions: Heart Attack, Cardiac Catheterization, Coronary Stenting , Surgical Site Infection, Ticagrelor - Follow up Plan Follow up with: Chacho Gutierrez MD [Primary Care Provider] - 03/29/18 Mingo García MD [Staff Physician] - 03/29/18 Disposition: Home, Self-Detention Medications: Home Medications Medication Instructions Recorded Confirmed Type colchicine 0.6 mg tablet 0.6 mg PO DAILY PRN tab 12/15/17 03/20/18 History hydroxyzine HCl 50 mg tablet 100 mg PO Q6H PRN tab 12/15/17 03/20/18 History ALPRAZolam [Xanax 1mg tab] 1 mg PO TID 03/20/18 03/20/18 History Budesonide/Formoterol Fumarate 2 puff INHALATION BID 03/20/18 03/20/18 History [Symbicort 160-4.5 Mcg Inhaler] Carvedilol [Carvedilol 6.25mg Tab] 6.25 mg PO DAILY 03/20/18 03/20/18 History Citalopram Hydrobromide [Celexa] 40 mg PO DAILY 03/20/18 03/20/18 History Levothyroxine Sodium [Synthroid 50 mcg PO DAILY 03/20/18 03/20/18 History 50mcg (0.05mg) tab] Pantoprazole Sodium [Protonix 40mg 40 mg PO DAILY 03/20/18 03/21/18 History tablet] lamoTRIgine [Lamotrigine] 25 mg PO DAILY 03/20/18 03/20/18 History raNITIdine HCl [Ranitidine HCl] 150 mg PO DAILY 03/20/18 03/20/18 History Fluticasone Propionate [Flonase 1 spr NS BID 03/21/18 03/21/18 History 50mcg nasal spray 16gm] Lisinopril [Lisinopril 20mg Tab] 20 mg PO HS 03/21/18 03/21/18 History Lisinopril/Hydrochlorothiazide 1 tab PO DAILY 03/21/18 03/21/18 History [Lisinopril-Hctz 20-25 mg Tab] Metformin HCl [Metformin 500mg 500 mg PO BID 03/21/18 03/21/18 History Tablet] Trazodone HCl 50 mg PO HS 03/21/18 03/21/18 History Prescriptions/Medication Reconciliation: New ALPRAZolam [Xanax 1mg tab] 1 mg PO TID tablet Aspirin [Aspirin 81mg EC Tab] 81 mg PO DAILY tablet. Citalopram Hydrobromide [Celexa 40mg Tablet] 40 mg PO DAILY tablet Colchicine [Colcrys 0.6mg tablet] 0.6 mg PO DAILYP PRN tablet PRN Reason: GOUT Famotidine [Pepcid 20mg Tablet] 20 mg PO HS tablet Fluticasone Propionate [Flonase 50mcg nasal spray 16gm] 1 spr NS BIDP PRN bottle PRN Reason: ALLERGIES hydrOXYzine pamoate [Vistaril 25mg capsule] 100 mg PO Q6HP PRN capsule PRN Reason: Anxiety Levothyroxine Sodium [Synthroid 50mcg (0.05mg) tab] 50 mcg PO DAILYDM tablet Nicotine [Nicoderm 21mg/24hr patch] 21 mg TD DAILY 30 Days #30 patch.[id number] Lisinopril [Lisinopril 5mg Tablet] 5 mg PO DAILY 30 Days #30 tab Ticagrelor [Brilinta 90mg Tablet] 90 mg PO BID tablet lamoTRIgine [Lamictal 100mg Tablet] 25 mg PO DAILY tablet Pantoprazole Sodium [Protonix 40mg tablet] 40 mg PO DAILY tablet. Carvedilol [Coreg 6.25mg Tablet] 6.25 mg PO BID 30 Days #60 tab Continue Budesonide/Formoterol Fumarate [Symbicort 160-4.5 Mcg Inhaler] 2 puff INHALATION BID Atorvastatin Calcium [Lipitor 80mg Tablet] 80 mg PO HS 30 Days #30 tab ALPRAZolam [Xanax 1mg tab] 1 mg PO TID Metformin HCl [Metformin 500mg Tablet] 500 mg PO BID Discontinued hydroxyzine HCl 50 mg tablet 100 mg PO Q6H PRN tab PRN Reason: Sleep colchicine 0.6 mg tablet 0.6 mg PO DAILY PRN tab PRN Reason: Gout raNITIdine HCl [Ranitidine HCl] 150 mg PO DAILY lamoTRIgine [Lamotrigine] 25 mg PO DAILY Citalopram Hydrobromide [Celexa] 40 mg PO DAILY Carvedilol [Carvedilol 6.25mg Tab] 6.25 mg PO DAILY Pantoprazole Sodium [Protonix 40mg tablet] 40 mg PO DAILY Fluticasone Propionate [Flonase 50mcg nasal spray 16gm] 1 spr NS BID Lisinopril/Hydrochlorothiazide [Lisinopril-Hctz 20-25 mg Tab] 1 tab PO DAILY Lisinopril [Lisinopril 20mg Tab] 20 mg PO HS Trazodone HCl 50 mg PO HS Levothyroxine Sodium [Synthroid 50mcg (0.05mg) tab] 50 mcg PO DAILY
[2018-03-22 09:59] VITALS: BP 108/77
== END 2018-03-22 10:07 | disposition home or self-care (01) ==
LOC: ER 12:59 → SDC 13:46 → 2ND 15:20
PROVIDERS: ADMIT Internal Medicine Adolescent Medicine; ATTEND Emergency Medicine

== ENCOUNTER → 2018-04-19 12:52 | Outpatient (CLI) | payer MEDICAID, SELFPAY ==
--- NOTE | 2018-04-19 12:59 | CA_ITS ---
PROCEDURE: 2-D M-mode and color Doppler study INDICATIONS FOR THE TEST: Chest pain COPD Heart Murmur Tobacco Smoking+ Palpitations Fatigue+ Syncope Edema+ Hypertension+Diabetes Mellitus+ Rheumatic Fever SOB+JIANG Obesity+Hyperlipidemia+ Family History HD Additional History Dizziness, stent 03/2018, CM EF 35-45% 03/21/18 PATIENT INFORMATION HEIGHT: 69 WEIGHT: 257 GENDER: Male B/P: 122/77 2-D/M-MODE INTERPRETATION: 2-D MEASUREMENTS OBSERVED VALUES IN CMS Right Ventricular Dimension (RVDd) 2.0 Interventricular Septum (Thickness)(IVsd) 1.0 Left Ventricular Internal Dimensions(LVIDd) 5.2 Left Ventricular Posterior Wall (Thickness)(LVPWd) 1.0 Aortic Root 3.5 Aortic Cusp Separation 2.2 Left Atrial Dimensions (LAD) 3.3 2D 1. Technically difficult study because of the patient's factor and poor acoustic windows, Definity contrast is recommended. 2. The left atrium is mildly enlarged, left ventricle is normal size, mild concentric left ventricular hypertrophy, visually estimated ejection fraction 40%, there is marked hypokinesis involving mid to distal septum, anterior and anteroapical wall, a repeat study with Definity contrast is recommended to visualized endocardial surfaces. 3. The right atrium and right ventricle are normal size and contractility. 4. The aortic valve is minimally thickened and fibrosed. 5. The mitral and tricuspid valve is thickened and 6. No significant pericardial effusion. DOPPLER INTERROGATION: Doppler interrogation of the aortic, mitral and tricuspid valvular presence of mild mitral and tricuspid regurgitation, tricuspid and jet velocity is insufficient for calculation of the right ventricular systolic pressure, grade 1 diastolic dysfunction seen with tissue Doppler evidence of the left atrial pressure. CONCLUSION: 1. Technically difficult study, repeat study with Definity contrast is recommended to delineate endocardial surfaces. 2. Mildly enlarged left atrium, normal left ventricular size, mild concentric left ventricular hypertrophy, visually estimated ejection fraction 40% with multiple segmental wall motion abnormality as described above. Grade 1 diastolic dysfunction seen with tissue Doppler evidence of raised left atrial pressure. 3. Mild mitral and tricuspid regurgitation 4. No significant pericardial effusion noted.
== END ==
PROVIDERS: PCP Emergency Medicine; Visit Provider Internal Medicine
DX: E11.9 Type 2 diabetes mellitus without complications (principal)
CPT/HCPCS: 93306

== ENCOUNTER → 2018-04-20 10:28 | Outpatient (CLI) | payer MEDICAID, SELFPAY ==
[2018-04-20 11:11] LABS: Blood Urea Nitrogen 37 mg/dL (7-18); Calcium 7.1 mg/dL (8.5-10.1); Carbon Dioxide 26 mmol/L (21.0-32.0); Chloride 98 mmol/L (98-107); Creatinine,Serum 2.28 mg/dL (0.70-1.30); Estimated Glomerular Filt Rate 30 ml/min (>60); GFR (African American) 37 ML/MIN (>60); Glucose 170 mg/dL (74-106); Sodium 135 mmol/L (136-145)
== END ==
PROVIDERS: PCP Emergency Medicine; Visit Provider Physician Assistant
DX: I10 Essential (primary) hypertension (principal); E11.69 Type 2 diabetes mellitus with other specified complication; E78.5 Hyperlipidemia, unspecified; I83.91 Asymptomatic varicose veins of right lower extremity; R60.9 Edema, unspecified; R05 Cough; F41.9 Anxiety disorder, unspecified; I25.10 Atherosclerotic heart disease of native coronary artery without angina pectoris
CPT/HCPCS: 36415; 80048

== ENCOUNTER → 2018-04-26 07:55 | Outpatient (CLI) | payer MEDICAID, SELFPAY ==
--- NOTE | 2018-04-26 07:58 | NVE_ITS ---
Venous Exam Indications: 729.5 Pain in limb. 782.3 Edema. IMPRESSIONS Deep vein thrombosis involving the right femoral vein, right popliteal vein, and right posterior tib Right lower extremity venous duplex evaluation. Doppler flow study including spectral analysis, color and roblero scale imaging. Location: Vascular laboratory. Patient status: Outpatient. CRITICAL FINDINGS - Reported to: Bess vogt - Read back and verified. - 04/26/18844 - + DVT Tables: Venous flow and imaging: + + + + + Location Overall Flow properties Comments + + + + + Right common femoral Patent Normal phasicity; spontaneous; normal augmentation; compressible + + + + + Right saphenofemoral Patent Compressible junction + + + + + Right profunda Patent Compressible femoral + + + + + Right femoral Partially Diminished occluded phasicity; diminished spontaneity; diminished augmentation; partially compressible + + + + + Right greater Patent Normal phasicity; saphenous spontaneous; normal augmentation; compressible + + + + + Right popliteal Partially Diminished occluded phasicity; diminished spontaneity; normal augmentation; partially compressible; reflux + + + + + Right posterior Partially Compressible tibial occluded + + + + + Right peroneal Difficult Compressible Difficult to study
--- NOTE | 2018-04-26 07:58 | CA_ITS ---
PROCEDURE: 2-D M-mode and color Doppler study INDICATIONS FOR THE TEST: Chest pain COPD Heart Murmur Tobacco Smoking+ Palpitations Fatigue+ Syncope Edema+ Hypertension+Diabetes Mellitus+ Rheumatic Fever SOB+JIANG Obesity+Hyperlipidemia+ Family History HD Additional History DIZZINESS, STENT 03/18, REDUCED EF 03/18 PATIENT INFORMATION HEIGHT: 69 WEIGHT:257 GENDER: Male B/P:120/70 2-D/M-MODE INTERPRETATION: 2-D MEASUREMENTS OBSERVED VALUES IN CMS Right Ventricular Dimension (RVDd) Interventricular Septum (Thickness)(IVsd) Left Ventricular Internal Dimensions(LVIDd) Left Ventricular Posterior Wall (Thickness)(LVPWd) Aortic Root Aortic Cusp Separation Left Atrial Dimensions (LAD) 2D 1. Limited study with Definity contrast is performed to assess left ventricular systolic function 2. The left ventricle is mildly dilated, there is reduced left ventricular systolic function, visually estimated ejection fraction approximately 30%, there is marked hypokinesis involving mid to distal septum anteroapical, apical, inferior and inferobasal wall. 3. The right atrium and right ventricle are normal size and contractility 4. No pericardial effusion seen. CONCLUSION: 1. Technically contrast was utilized to delineate endocardial surfaces. 2. Left ventricle is mildly dilated, visually estimated ejection fraction approximately 30% with multiple segmental wall motion abnormality described above. 3. No significant pericardial effusion noted.
== END ==
PROVIDERS: PCP Emergency Medicine; Visit Provider Internal Medicine
DX: I82.409 Acute embolism and thrombosis of unspecified deep veins of unspecified lower extremity (principal)
CPT/HCPCS: 93308; 93971

== ENCOUNTER → 2018-04-27 09:45 | Outpatient (CLI) | payer MEDICAID, SELFPAY ==
--- NOTE | 2018-04-27 09:46 | NVE_ITS ---
Venous Exam Indications: 729.5 Pain in limb. DVT followup IMPRESSIONS Deep vein thrombosis involving the right femoral vein, right popliteal vein, and right posterior tib. No change from the study of 26-Apr-2018. Right lower extremity venous duplex evaluation. Doppler flow study including spectral analysis, color and roblero scale imaging. Location: Vascular laboratory. Patient status: Outpatient. CRITICAL FINDINGS - Reported to: Harish - Read back and verified. - 04/27/184 - No change from yesterday + sfv, pop, pt. Tables: Venous flow and imaging: + + + + Location Overall Flow properties + + + + Right common femoral Patent Normal phasicity; spontaneous; normal augmentation; compressible + + + + Right saphenofemoral Patent Compressible junction + + + + Right profunda femoral Patent Compressible + + + + Right femoral Partially occluded Diminished phasicity; diminished spontaneity; diminished augmentation; partially compressible + + + + Right greater saphenous Patent Normal phasicity; spontaneous; normal augmentation; compressible + + + + Right popliteal Partially occluded Diminished phasicity; diminished spontaneity; diminished augmentation; partially compressible; reflux + + + + Right posterior tibial Partially occluded Partially compressible + + + + Right peroneal Patent Compressible + + + + Right gastrocnemius Patent Compressible + + + + Right soleal Patent Compressible + + + + (Report amended ) Electronically signed by: Freddie Cuba [id number]
== END ==
PROVIDERS: PCP Emergency Medicine; Visit Provider Internal Medicine
DX: I82.409 Acute embolism and thrombosis of unspecified deep veins of unspecified lower extremity (principal)
CPT/HCPCS: 93971

== ENCOUNTER → 2018-04-27 09:58 | Outpatient (CLI) | payer MEDICAID, SELFPAY ==
[2018-04-27 11:13] LABS: Anion Gap 18.1 mEq/L (5-15); Blood Urea Nitrogen 27 mg/dL (7-18); Carbon Dioxide 21 mmol/L (21.0-32.0); Chloride 102 mmol/L (98-107); Creatinine,Serum 1.42 mg/dL (0.70-1.30); Estimated Glomerular Filt Rate 52 ml/min (>60); GFR (African American) 63 ML/MIN (>60); Glucose 134 mg/dL (74-106); Potassium 4.1 mmoL/L (3.5-5.1); Sodium 137 mmol/L (136-145)
[2018-04-27 11:56] LABS: Calcium 5.6 mg/dL (8.5-10.1)
[2018-04-27 12:51] LABS: Free Thyroxine Index 3.1 ug/dL (5.93-13.13); T4 (Thyroxine) 8.5 ug/dl (4.7-13.3); Thyroid Stimulating Hormone 1.37 uIU/ml (0.358-3.740); Triiodothryronine (T3) Uptake 37 % (31-39)
[2018-04-27 12:53] LABS: Magnesium 0.4 mg/dL (1.4-2.2)
[2018-04-28 13:57] LABS: Parathyroid Hormone Intact 36 pg/mL (15-65)
== END ==
PROVIDERS: PCP Emergency Medicine; Visit Provider Physician Assistant
DX: E78.5 Hyperlipidemia, unspecified (principal); E11.9 Type 2 diabetes mellitus without complications; R53.83 Other fatigue; I10 Essential (primary) hypertension
CPT/HCPCS: 36415; 80048; 83735; 83970; 84436; 84443; 84479

== ENCOUNTER 2018-04-27 14:41 | Observation (INO) ==
--- NOTE | 2018-04-27 15:03 | Emergency Department Note ---
ED Disposition Clinical Impression: Hypomagnesemia, Hypocalcemia, Prolonged Q-T interval on ECG Disposition: Admitted as Observation Condition on Discharge: Good Referrals: Chacho Gutierrez MD [Primary Care Provider] - Time of Disposition: 15:45 - Critical Care Critical Care Time: Yes Attestation: On , the high probability of a clinically significant, sudden or life threatening deterioration of the following system(s) required my full and direct attention, intervention and personal management. The time I documented below is in addition to time spent performing reported procedures but includes the following listed in this critical care notation. Total Critical Care Time: 20 Vital system(s) involved:: Metabolic Failure My critical care processes included: Assessment & monitoring of V/S, Initial and Re-exams, Data Review/Interpretation, Coordinating Care, Medication Orders and management, Documentation Comment: review of medical records, consultations; d/w family and patient Medical Decision Making - Medical Records Medical records reviewed: Yes: I reviewed the patient's medical records. MR Comment: labs drawn at 1000 today: low magnesium; low calcium; documented DVT - Uziel Inquiry Pt receiving controlled substance: No Vital Signs: 04/27/18 14:42 04/27/18 15:42 Temperature 98.5 F Temperature Source Oral Pulse Rate [Right Radial] 98 H 87 Respiratory Rate 18 20 Blood Pressure [Right Arm] 121/82 115/67 Blood Pressure Mean [Right Arm] 95 83 Blood Pressure Source [Right Arm] Automatic Cuff Automatic Cuff Blood Pressure Position [Right Arm] Sitting Sitting 02 Sat by Pulse Oximetry 100 96 Oxygen Delivery Method Room Air Room Air - Lab Data Lab results reviewed: Yes: I reviewed the patient's lab results. Orders (Tests/Meds): ED MEDICATIONS Generic Name Dose Route Start Last Admin Trade Name Freq PRN Reason Stop Dose Admin Magnesium Sulfate 2 gm/ Sodium 104 mls @ 100 mls/hr 04/27/18 15:03 04/27/18 15:28 Chloride IV 04/27/18 16:05 100 mls/hr ONCE ONE Administration Calcium Chloride 2 gm/ Sodium 120 mls @ 120 mls/hr 04/27/18 15:30 04/27/18 15 :33 Chloride IV 04/27/18 16:29 120 mls/hr ONCE ONE Administration ORDERS Category Date Time Status 12-lead EKG Request [ECG Request by /Laurence] Stat Y 04/27/18 15:00 Ordered - ECG Data Tracing #1 I reviewed this ECG and interpreted as documented below: NSR w APC's, prolonged QTc, IRBB nonspecific tw changes Normal Sinus Rhythm: Yes Conduction abnormalities present: QT prolongation - Physician Consults Physician Consulted: Dr. Gutierrez Time: 15:36 Reason -: Admission General Adult HPI - General Chief complaint: Extremity Injury, Lower Stated complaint: Blood clot right leg; abnormal labs Time Seen by Provider: 04/27/18 15:00 Mode of Arrival: Ambulatory Source of Information: Patient, Medical Record Limitations: No Limitations Description of Symptoms (Recalled from ER Triage Doc. by RN): MD advises pt that he has a blood clot in his right leg and needs to come to the hospital and blood work was not good. On blood thinner for a about a month. had a CA on the or 12 of march. - History of Present Illness HPI narrative: Pt diagnosed with DVT on 04/26/18, started on Xarelto and Plavix per Dr. García ; repeat US today also revealed DVT. Pt denies SOB. Has hx CAD but denies chest pain. Repeat labs today showed hypomagnesemia, hypocalcemia, referred to ED for magnesium replacement as already on tx for DVT. States he "sweats a lot" but ROS otherwise neg. Here for IV replacement. Onset (ago): day(s) Radiation: non-radiation Severity: mild Associated symptoms: weakness - Related Data Home Medications Medication Instructions Recorded Confirmed Metformin HCl [Metformin 500mg 500 mg PO BID 03/21/18 04/27/18 Tablet] bisoprolol fumarate 5 mg tablet 5 mg PO DAILY tab 03/29/18 04/27/18 blood sugar diagnostic, disc strips See Dose Instructions .ROUTE 03/29/18 .MEDSUPPLY #30 each fluticasone 50 mcg/actuation nasal 1 spray INTRANASAL Q12H PRN 03/29/18 04/27/18 spray,suspension ranitidine 150 mg tablet 150 mg PO QHS 03/29/18 04/27/18 ALPRAZolam [Xanax 0.5mg tab] 0.5 mg PO QID 04/27/18 04/27/18 Aspirin [Aspirin 81mg EC Tab] 81 mg PO DAILY 04/27/18 04/27/18 Budesonide/Formoterol Fumarate 2 puff INHALATION BID 04/27/18 04/27/18 [Symbicort 160-4.5 Mcg Inhaler] Citalopram Hydrobromide [Celexa 40 mg PO DAILY 04/27/18 04/27/18 40mg Tablet] Clopidogrel Bisulfate [Plavix 75mg 75 mg PO QDAY 04/27/18 04/27/18 Tab] Levothyroxine Sodium [Synthroid 50 mcg PO DAILY 04/27/18 04/27/18 50mcg (0.05mg) tab] Lisinopril [Lisinopril 5mg Tablet] 5 mg PO DAILY 04/27/18 04/27/18 Nicotine [Nicoderm Cq 14mg] 1 patch TRANSDERMA Q24H 04/27/18 04/27/18 Pantoprazole Sodium [Protonix 40mg 40 mg PO DAILY 04/27/18 04/27/18 tablet] Rivaroxaban [Xarelto 15mg tablet] 15 mg PO BID 04/27/18 04/27/18 hydrOXYzine pamoate [Vistaril 25mg 50 mg PO Q6HP PRN 04/27/18 04/27/18 capsule] lamoTRIgine [Lamictal 100mg Tablet] 25 mg PO DAILY 04/27/18 04/27/18 Previous Rx's Medication Instructions Recorded Atorvastatin Calcium [Lipitor 80mg 80 mg PO HS 30 Days #30 tab 03/22/18 Tablet] colchicine 0.6 mg tablet 0.6 mg PO DAILYP PRN tab 04/05/18 promethazine-DM 6.25 mg-15 mg/5 mL 5 ml PO TID PRN 5 Days #118 ml 04/26/18 syrup Allergies Allergy/AdvReac Type Severity Reaction Status Date / Time codeine [CODEINE] AdvReac Unknown ITCHING, Verified 04/27/18 14:53 N/V Opioids - Morphine Analogues AdvReac Rash Verified 04/27/18 14:53 [facility] History I have reviewed the patient's past medical history: Yes Medical History: Reports:: Anxiety, Congestive Heart Failure, Depression, Diabetes Mellitus Type 2, Hyperlipidemia, Hypertension, MRSA Denies:: Cancer Other Medical History: Reports: Glaucoma, Hypothyroidism, Other Comment: GLYCOMA, history of a heart attack Laterality Cases: Left: Other, Bilateral: Tonsillectomy Other Surgeries: Yes: Angiogram, Angioplasty, Cardiac Catheterization, Cardiac Surgery, Cholecystectomy, Colonoscopy, Coronary Stent, Other Amputation: No Fractures: Yes Comment: fx femur - Social History Smoking Status: Current some day smoker Tobacco Type: cigarettes # Packs/Day (cigarettes): 1 Alcohol Intake: never Alcohol Intake Frequency:: other Substance Use Type: denies use Occupational Status: disabled Housing: house Household Members: family - Psychiatric History Expresses thoughts of harming self/others: None Suicide Plan Description: No Plan Pschychiatric History:: Reports:: Anxiety, Depression Family Hx:: Heart Attack, Coronary Artery Disease ROS Obtained: Yes All systems reviewed & no additional complaints - Endocrine Endocrine: Reports other (hx thyroid dysfunction; hypomagnesemia, hypocalcemia noted on labs today ) Physical Exam - General General appearance: alert, in no apparent distress - Head Head exam: atraumatic, normocephalic, normal inspection - Eye Eye exam: Present: normal appearance, PERRL, EOMI - ENT ENT exam: Present: normal exam, normal oropharynx, mucous membranes moist, TM's normal bilaterally, normal external ear exam - Neck Neck exam: Present: normal inspection, full ROM, trachea midline. Absent: meningismus, lymphadenopathy - Chest Chest inspection: Present: normal inspection, symmetric chest wall rise. Absent : tenderness - Respiratory Respiratory exam: Present: normal lung sounds bilaterally. Absent: respiratory distress - Cardiovascular Cardiovascular exam: Present: regular rate, normal rhythm. Absent: JVD - Abdominal Exam Abdominal exam: Present: soft, normal bowel sounds. Absent: distention, tenderness, guarding - Extremities Exam Extremities exam: Present: full ROM, normal capillary refill, calf tenderness ( tender right calf with swelling on right, c/w known DVT (already on Xarelto as of 04/26/18)) - Back Exam Back exam: Present: normal inspection. Absent: tenderness - Neurological Exam Neurological exam: Present: alert, oriented X3, other (positive Chvostek sign; positive Trousseau sign as checked at bedside) - Psychiatric Psychiatric exam: Present: normal affect, normal mood - Skin Skin exam: Present: warm, dry, intact, normal color - Lymphatic Lymphatic Findings: no adenopathy
--- NOTE | 2018-04-27 15:57 | Pharmacy Consult Notes ---
[facility] Pharmacy VTE Monitoring - Patient Demographics Admission date: 04/27/18 Report Date: 04/27/18 Time: 15:56 Allergies/Adverse Reactions: Patient Allergies codeine [CODEINE] Adverse Reaction (Unknown, Verified 04/27/18 14:53) ITCHING, N/V Opioids - Morphine Analogues Adverse Reaction (Verified 04/27/18 14:53) Rash Height: 1.75 m Weight: 108.862 kg Patient Problems: Current Active Problems Hypomagnesemia (Acute) Hypocalcemia (Acute) Prolonged Q-T interval on ECG (Acute) - VTE Risk Clinical Trial Participant: No - Prophylaxis VTE Prophylaxis Ordered?: Yes Types of VTE Prophylaxis: TEDS Knee High
[2018-04-27 22:46] LABS: Anion Gap 14.5 mEq/L (5-15); Potassium 4.5 mmoL/L (3.5-5.1)
[2018-04-27 22:59] LABS: Calcium 7.3 mg/dL (8.5-10.1)
[2018-04-28 06:16] LABS: Anion Gap 15.6 mEq/L (5-15); Calcium 7.3 mg/dL (8.5-10.1); Potassium 4.6 mmoL/L (3.5-5.1)
--- NOTE | 2018-04-28 08:41 | Consult Report ---
History of Present Illness Consult date: 04/28/18 Requesting physician: Chacho Gutierrez Chief complaint: Muscle spasms, hypomagnesemia, hypocalcemia, QT prolongation Additional Medical History:: 1. ST elevation myocardial Infarction: 03/20/18 a. PTCA with stent placement of the mid first obtuse marginal branch of the circumflex (03/20/18): Dr. Trujillo b. Elevated troponin 4.06 (03/20/18) c. Left heart catheterization (09/30/17): Normal coronaries. 2. Chest pain 3. Diabetes Mellitus Types 2 a. Questionable on medication compliance. 4. Congestive heart failure a. Echocardiogram (09/17). Revealed mildly enlarged left atrium, normal left ventricular size, mid concentric left ventricular hypertrophy, visually estimated EF approximately 50% with segmental wall motion abnormality, Doppler evidence of impaired LV relaxation seen. Mild mitral and tricuspid regurgitation noted. b. Elevated creatinine 1.45 (03/21/17). C. Echo with definity contrast, 04/2018, The left ventricle is mildly dilated, there is reduced left ventricular systolic function, visually estimated ejection fraction approximately 30%, there is marked hypokinesis involving mid to distal septum anteroapical, apical, inferior and inferobasal wall. The right atrium and right ventricle are normal size and contractility. No pericardial effusion seen 5. Hyperlipidemia a. Patient currently taking atorvastatin 80 mg 1 daily. 6. Essential hypertension. 7. Tobacco use a. Smokes 1 pack per day for unknown years. 8. Depression 9. Bipolar disorder History of present illness: 53-year-old white male with known coronary artery disease and recent Lasix use resulting in 15 pound weight loss was admitted to the hospital for correction of hypomagnesemia and hypocalcemia. Patient denies any recent GI illness or increased Lasix use. Lab work yesterday was obtained to follow-up on his Lasix use with normal potassium noted but low calcium. Magnesium was ordered and revealed a level of 0.4. Patient was brought to the emergency department for treatment. He did receive 6 g of magnesium and supplemental calcium with correction of both levels. Patient had noted some muscle spasms which have resolved with the correction of the magnesium and calcium. Questionable QT prolongation on admission and cardiology consulted for evaluation. Patient denies any chest pain. Recently was found to have a right lower extremity DVT throughout the leg and was started on Xarelto. He denies any melena or hematochezia. He does relate 2 rounds of antibiotics recently for upper respiratory infection/ear infection. [place] History Medical History: Reports:: Anxiety, Congestive Heart Failure, Depression, Diabetes Mellitus Type 2, Hyperlipidemia, Hypertension Denies:: Cancer, Diabetes Mellitus Type 1, MRSA Other Medical History: Reports: Glaucoma, Hypothyroidism, Other Laterality Cases: Left: Other, Bilateral: Tonsillectomy Other Surgeries: Yes: Angiogram, Angioplasty, Cardiac Catheterization, Cardiac Surgery, Cholecystectomy, Colonoscopy, Coronary Stent, Other Amputation: No Fractures: Yes - *Social History Educational Level: Completed High School Smoking Status: Light tobacco smoker Tobacco Type: cigarettes # Packs/Day (cigarettes): 1 Alcohol Intake: never Alcohol Intake Frequency:: other Substance Use Type: denies use Occupational Status: disabled Housing: house Household Members: family - Psychiatric History Expresses thoughts of harming self/others: None Suicide Plan Description: No Plan Pschychiatric History:: Reports:: Anxiety, Depression *Family Hx:: Heart Attack, Coronary Artery Disease Meds Home Medications Medication Instructions Recorded Confirmed Type Metformin HCl [Metformin 500mg 500 mg PO BID 03/21/18 04/27/18 History Tablet] bisoprolol fumarate 5 mg tablet 5 mg PO DAILY tab 03/29/18 04/27/18 History blood sugar diagnostic, disc strips See Dose Instructions .ROUTE 03/29/18 History .MEDSUPPLY #30 each fluticasone 50 mcg/actuation nasal 1 spray INTRANASAL Q12H PRN 03/29/18 History spray,suspension ranitidine 150 mg tablet 150 mg PO HS 03/29/18 04/27/18 History ALPRAZolam [Xanax 0.5mg tab] 0.5 mg PO QID 04/27/18 04/27/18 History Aspirin [Aspirin 81mg EC Tab] 81 mg PO DAILY 04/27/18 04/27/18 History Budesonide/Formoterol Fumarate 2 puff INHALATION BID 04/27/18 04/27/18 History [Symbicort 160-4.5 Mcg Inhaler] Citalopram Hydrobromide [Celexa 40 mg PO DAILY 04/27/18 04/27/18 History 40mg Tablet] Clopidogrel Bisulfate [Plavix 75mg 75 mg PO DAILY 04/27/18 04/27/18 History Tab] Levothyroxine Sodium [Synthroid 50 mcg PO DAILY 04/27/18 04/27/18 History 50mcg (0.05mg) tab] Lisinopril [Lisinopril 5mg Tablet] 5 mg PO DAILY 04/27/18 04/27/18 History Nicotine [Nicoderm Cq 14mg] 1 patch TRANSDERMA DAILY 04/27/18 04/27/18 History Pantoprazole Sodium [Protonix 40mg 40 mg PO DAILY 04/27/18 04/27/18 History tablet] Rivaroxaban [Xarelto 15mg tablet] 15 mg PO BID 04/27/18 04/27/18 History hydrOXYzine pamoate [Vistaril 25mg 50 mg PO Q6HP PRN 04/27/18 04/27/18 History capsule] lamoTRIgine [Lamictal 100mg Tablet] 25 mg PO DAILY 04/27/18 04/27/18 History Allergies Allergy/AdvReac Type Severity Reaction Status Date / Time Opioids - Morphine Analogues Allergy Rash Verified 04/27/18 16:27 codeine [CODEINE] AdvReac Unknown ITCHING, Verified 04/27/18 14:53 N/V Review of Systems - *Cardiovascular Reports shortness of breath with activity, Denies chest pain - *Respiratory Reports shortness of breath with activity - *Gastrointestinal Denies abdominal pain, Denies loose stools - *Genitourinary Denies blood in urine - *Musculoskeletal Reports joint pain - *Neurologic Reports tingling Exam Vital signs and Labs for Last 24 Hours: Temp Pulse Resp BP Pulse Ox 98.0 F 82 18 118/86 95 04/28/18 07:53 04/28/18 07:53 04/28/18 07:53 04/28/18 07:53 04/28/18 07:53 Laboratory Results - last 24 hr 04/27/18 17:08: POC Glucose 134 H 04/27/18 20:15: POC Glucose 173 H 04/27/18 22:30: Sodium 138, Potassium 4.5, Chloride 106, Carbon Dioxide 22, Anion Gap 14.5, BUN 28 H, Creatinine 1.42 H, Estimated Creat Clear 95, Estimated GFR 52 L, Est GFR ( Amer) 63, Glucose 164 H D, Calcium 7.3 L D 04/27/18 22:30: Magnesium 1.6 D 04/28/18 05:14: Sodium 142, Potassium 4.6, Chloride 109 H, Carbon Dioxide 22, Anion Gap 15.6 H, BUN 24 H, Creatinine 1.21, Estimated Creat Clear 111, Estimated GFR 63, Est GFR ( Amer) 76 D, Glucose 143 H, Calcium 7.3 L, Magnesium 1.5 04/28/18 06:05: POC Glucose 147 H I & O for Last 24 hours: Intake & Output 04/25/18 04/26/18 04/27/18 04/28/18 11:59 11:59 11:59 11:59 Intake Total 1338 / 1338 Output Total 975 / 975 Balance 363 / 363 Weight 242 lb 5 oz - *Routine Neck Exam Absent: JVD, carotid bruit - *Routine Respiratory Exam Present: CTA bilaterally - *Routine Cardiovascular Exam Present: RRR. Absent: murmur, gallop - *Routine Abdominal Exam Absent: tenderness - *Routine Extremities Exam Comments: Trace edema of the right lower extremity with good pulses bilaterally. Assessment and Plan (1) Hypocalcemia Current visit: Yes Status: Acute Category: Medical Code(s): E83.51 - Hypocalcemia (2) Hypomagnesemia Current visit: Yes Status: Acute Category: Medical Code(s): E83.42 - Hypomagnesemia (3) Prolonged Q-T interval on ECG Current visit: Yes Status: Acute Category: Medical Code(s): R94.31 - Abnormal electrocardiogram [ECG] [EKG] (4) Coronary artery disease Current visit: Yes Status: Acute Category: Medical Code(s): I25.10 - Atherosclerotic heart disease of [place] coronary artery without angina pectoris (5) Hypertension Current visit: No Status: Acute Qualifiers: Hypertension type: essential hypertension Qualified Code(s): I10 - Essential (primary) hypertension Category: Medical Code(s): I10 - Essential (primary) hypertension (6) Tobacco use disorder Current visit: No Status: Acute Category: Medical Code(s): F17.200 - Nicotine dependence, unspecified, uncomplicated (7) Hyperlipidemia associated with type 2 diabetes mellitus Current visit: No Status: Chronic Category: Medical Code(s): E11.69 - Type 2 diabetes mellitus with other specified complication; E78.5 - Hyperlipidemia, unspecified (8) Type 2 diabetes mellitus Current visit: No Status: Chronic Qualifiers: Diabetes mellitus senior care insulin use: without truck 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 Repeat EKG this a.m. shows QTc at 510 ms and again visually does not appear to be that long.. Regarding the patient's ischemic cardiomyopathy and low ejection fraction, he has been on maximally tolerated standard therapy for his cardiomyopathy since his STEMI on 03/20/18. He has an appointment next week (05/03/2018) to follow-up on his cardiomyopathy (greater than 40 days from his IN) with consideration of possible placement of AICD. OK for discharge home from Cardiology standpoint.
--- NOTE | 2018-04-28 10:52 | H&P/Discharge Summary ---
General - General Admission date:: 04/27/18 Discharge date: 04/28/18 *Admission Date: 04/27/18 *Chief complaint: Low magnesium *History of present illness: Patient was admitted for correction of low magnesium after seeing cardiology for f/u of right DVT. Has done well overnight. Cardiology saw patient this am and has been cleared for discharge. [facility] History I have reviewed the patient's past medical history: Yes Medical History: Reports:: Anxiety, Congestive Heart Failure, Coronary Artery Disease, Deep Vein Thrombosis, Depression, Diabetes Mellitus Type 2, Hyperlipidemia, Hypertension Denies:: Cancer, Diabetes Mellitus Type 1, MRSA Other Medical History: Reports: Glaucoma, Hypothyroidism, Other Laterality Cases: Left: Other, Bilateral: Tonsillectomy Other Surgeries: Yes: Angiogram, Angioplasty, Cardiac Catheterization, Cardiac Surgery, Cholecystectomy, Colonoscopy, Coronary Stent, Other Amputation: No Fractures: Yes - *Social History Educational Level: Completed High School Smoking Status: Light tobacco smoker Tobacco Type: cigarettes # Packs/Day (cigarettes): 1 Alcohol Intake: never Alcohol Intake Frequency:: other Substance Use Type: denies use Occupational Status: disabled Housing: house Household Members: family - Psychiatric History Expresses thoughts of harming self/others: None Suicide Plan Description: No Plan Pschychiatric History:: Reports:: Anxiety, Depression *Family Hx:: Heart Attack, Coronary Artery Disease Review of Systems - Review of Systems Review of systems:: pertinent systems reviewed and negative unless documented below - Constitutional Reports excessive sweating, Reports weakness - *Cardiovascular Reports excessive sweating - *Neurologic Reports localized weakness, Reports tingling Exam Vital signs and Labs for Last 24 Hours: Temp Pulse Resp BP Pulse Ox 98.0 F 80 18 118/86 95 04/28/18 07:53 04/28/18 08:00 04/28/18 07:53 04/28/18 07:53 04/28/18 07:53 Laboratory Results - last 24 hr 04/27/18 17:08: POC Glucose 134 H 04/27/18 20:15: POC Glucose 173 H 04/27/18 22:30: Sodium 138, Potassium 4.5, Chloride 106, Carbon Dioxide 22, Anion Gap 14.5, BUN 28 H, Creatinine 1.42 H, Estimated Creat Clear 95, Estimated GFR 52 L, Est GFR ( Amer) 63, Glucose 164 H D, Calcium 7.3 L D 04/27/18 22:30: Magnesium 1.6 D 04/28/18 05:14: Sodium 142, Potassium 4.6, Chloride 109 H, Carbon Dioxide 22, Anion Gap 15.6 H, BUN 24 H, Creatinine 1.21, Estimated Creat Clear 111, Estimated GFR 63, Est GFR ( Amer) 76 D, Glucose 143 H, Calcium 7.3 L, Magnesium 1.5 04/28/18 06:05: POC Glucose 147 H I & O for Last 24 hours: Intake & Output 04/25/18 04/26/18 04/27/18 04/28/18 11:59 11:59 11:59 11:59 Intake Total 1338 / 1338 Output Total 975 / 975 Balance 363 / 363 Weight 242 lb 5 oz - Constitutional no acute distress, average body habitus - *Routine HEENT Exam Head: Present: normocephalic Eye: Present: PERRL ENT: Present: mucous membranes moist - Routine Chest/Breast/Axilla Exam Chest wall: Absent: tenderness - *Routine Respiratory Exam Present: CTA bilaterally - *Routine Cardiovascular Exam Present: RRR - *Routine Extremities Exam Absent: cyanosis, clubbing - *Routine Skin Exam Present: intact - *Routine Neurological Exam Present: alert, oriented X3 - Routine Psychiatric Exam Present: normal affect Hospital Course Hospital Course: Hypomagnesia corrected overnight with IV magnesium, calcium and fluids. Has already started treatment for right DVT. Results Labs on day of discharge: Labs from last 24 hours 04/28/18 04/28/18 04/27/18 06:05 05:14 22:30 Sodium 142 Potassium 4.6 Chloride 109 H Carbon Dioxide 22 Anion Gap 15.6 H BUN 24 H Creatinine 1.21 Estimated Creat Clear 111 Estimated GFR 63 Est GFR ( Amer) 76 D Glucose 143 H POC Glucose 147 H Calcium 7.3 L Magnesium 1.5 1.6 D 04/27/18 04/27/18 04/27/18 22:30 20:15 17:08 Sodium 138 Potassium 4.5 Chloride 106 Carbon Dioxide 22 Anion Gap 14.5 BUN 28 H Creatinine 1.42 H Estimated Creat Clear 95 Estimated GFR 52 L Est GFR ( Amer) 63 Glucose 164 H D POC Glucose 173 H 134 H Calcium 7.3 L D Magnesium DS: Diagnosis - Discharge Diagnosis (1) Hypocalcemia Status: Acute (2) Hypomagnesemia Status: Acute (3) Prolonged Q-T interval on ECG Status: Acute (4) Coronary artery disease Status: Acute (5) Hypertension Status: Acute (6) Tobacco use disorder Status: Acute (7) Hyperlipidemia associated with type 2 diabetes mellitus Status: Chronic (8) Type 2 diabetes mellitus Status: Chronic (9) Ischemic cardiomyopathy Status: Acute Discharge Medications Discharge Medications: Home Medications Medication Instructions Recorded Confirmed Type Metformin HCl [Metformin 500mg 500 mg PO BID 03/21/18 04/27/18 History Tablet] bisoprolol fumarate 5 mg tablet 5 mg PO DAILY tab 03/29/18 04/27/18 History blood sugar diagnostic, disc strips See Dose Instructions .ROUTE 03/29/18 History .MEDSUPPLY #30 each fluticasone 50 mcg/actuation nasal 1 spray INTRANASAL Q12H PRN 03/29/18 History spray,suspension ranitidine 150 mg tablet 150 mg PO HS 03/29/18 04/27/18 History ALPRAZolam [Xanax 0.5mg tab] 0.5 mg PO QID 04/27/18 04/27/18 History Aspirin [Aspirin 81mg EC Tab] 81 mg PO DAILY 04/27/18 04/27/18 History Budesonide/Formoterol Fumarate 2 puff INHALATION BID 04/27/18 04/27/18 History [Symbicort 160-4.5 Mcg Inhaler] Citalopram Hydrobromide [Celexa 40 mg PO DAILY 04/27/18 04/27/18 History 40mg Tablet] Clopidogrel Bisulfate [Plavix 75mg 75 mg PO DAILY 04/27/18 04/27/18 History Tab] Levothyroxine Sodium [Synthroid 50 mcg PO DAILY 04/27/18 04/27/18 History 50mcg (0.05mg) tab] Lisinopril [Lisinopril 5mg Tablet] 5 mg PO DAILY 04/27/18 04/27/18 History Nicotine [Nicoderm Cq 14mg] 1 patch TRANSDERMA DAILY 04/27/18 04/27/18 History Pantoprazole Sodium [Protonix 40mg 40 mg PO DAILY 04/27/18 04/27/18 History tablet] Rivaroxaban [Xarelto 15mg tablet] 15 mg PO BID 04/27/18 04/27/18 History hydrOXYzine pamoate [Vistaril 25mg 50 mg PO Q6HP PRN 04/27/18 04/27/18 History capsule] lamoTRIgine [Lamictal 100mg Tablet] 25 mg PO DAILY 04/27/18 04/27/18 History Disposition Disposition: Home, Self-Care
== END 2018-04-28 12:57 | disposition home or self-care (01) ==
LOC: ER 14:41 → 2ND 14:41
PROVIDERS: ADMIT Emergency Medicine; ATTEND Emergency Medicine

== ENCOUNTER → 2018-05-23 14:43 | Outpatient (REF) | payer MEDICAID, SELFPAY ==
[2018-05-23 17:03] LABS: Basophils % 0.5 % (0.1-2.0); Eosinophils # 0.2 K/mm3 (0.0-0.4); Eosinophils % 2.1 % (0.1-12.0); Hematocrit 40.6 % (42.0-52.0); Hemoglobin 12.9 g/dL (14.1-18.0); Lymphocytes # 2.6 K/mm3 (0.7-4.5); Lymphocytes % 31.9 K/mm3 (10-50); Mean Corpuscular HGB Conc 31.8 g/dL (31.8-35.4); Mean Corpuscular Hemoglobin 28.1 pg (27.0-31.2); Mean Corpuscular Volume 88.3 fl (80-94); Mean Platelet Volume 7.2 fl (7.4-10.4); Monocytes # 0.5 K/mm3 (0.1-1.0); Monocytes % 6.7 % (1.7-9.3); Neutrophils # 4.7 K/mm3 (1.8-7.8); Neutrophils % 58.8 % (37.0-80.0); Platelet Count 359 K/mm3 (142-424); Red Cell Distribution Width 16.4 % (11.5-17.5); White Blood Count 8.1 K/mm3 (4.8-10.8)
[2018-05-23 17:57] LABS: Alanine Aminotransferase 24 U/L (12-78); Albumin Level 3.6 gm/dL (3.4-5.0); Albumin/Globulin Ratio 1.1 (1.1-1.8); Alkaline Phosphatase 79 U/L (46-116); Anion Gap 16.3 mEq/L (5-15); Aspartate Amino Transferase 16 U/L (15-37); Bilirubin,Total 0.4 mg/dL (0.2-1.0); Blood Urea Nitrogen 16 mg/dL (7-18); Carbon Dioxide 25 mmol/L (21.0-32.0); Chloride 106 mmol/L (98-107); Creatinine,Serum 1.23 mg/dL (0.70-1.30); Estimated Glomerular Filt Rate 62 ml/min (>60); GFR (African American) 75 ML/MIN (>60); Globulin 3.4 gm/dl (1.3-3.2); Glucose 143 mg/dL (74-106); Potassium 4.3 mmoL/L (3.5-5.1); Sodium 143 mmol/L (136-145)
[2018-05-23 18:06] LABS: Calcium 6.7 mg/dL (8.5-10.1); Magnesium 0.7 mg/dL (1.4-2.2)
== END ==
LOC: LAB 14:43
PROVIDERS: Visit Provider Emergency Medicine
DX: I10 Essential (primary) hypertension (principal)
CPT/HCPCS: 80053; 83735; 85025

== ENCOUNTER 2018-05-25 13:10 | Outpatient (CLI) | payer MEDICAID, SELFPAY ==
[2018-05-25] VITALS (8 sets, daily range): BP systolic 94–122; BP diastolic 57–79; PULSE 72–84; RESP 16–18; O2SAT 100
[2018-05-26 12:10] VITALS: BMI 35.4
== END 2018-05-25 15:15 | disposition home or self-care (01) ==
LOC: INF 13:14
PROVIDERS: PCP Emergency Medicine; Visit Provider Emergency Medicine
DX: E83.42 Hypomagnesemia (principal)
CPT/HCPCS: 96365; 96366

== ENCOUNTER → 2018-05-26 12:32 | Outpatient (CLI) | payer MEDICAID, SELFPAY ==
[2018-05-26 12:36] LABS: Adenovirus F 40/41, stool Not Detected (NotDetected); Astrovirus Not Detected (NotDetected); Campylobacter Not Detected (NotDetected); Clostridium Difficile A/B, PCR Not Detected (NotDetected); Cryptosporidium Not Detected (NotDetected); Cyclospora Cayetanesis Not Detected (NotDetected); Entamoeba histolytica Not Detected (NotDetected); Enteroaggregative E coli Not Detected (NotDetected); Enteropathogenic E coli Not Detected (NotDetected); Enterotoxigenic E coli Not Detected (NotDetected); Norovirus Not Detected (NotDetected); Plesimonas Shigalloides, PCR Not Detected (NotDetected); Rotavirus A Not Detected (NotDetected); Salmonella, PCR Not Detected (NotDetected); Sapovirus Not Detected (NotDetected); Shiga-like toxin E coli Not Detected (NotDetected); Shigella Enterovasive E coli Not Detected (NotDetected); Vibrio Cholerae Not Detected (NotDetected); Vibrio, PCR Not Detected (NotDetected); Yersinia Entercolitica, PCR Not Detected (NotDetected)
[2018-05-26 13:45] LABS: Magnesium 1.7 mg/dL (1.4-2.2)
[2018-05-26 15:55] LABS: Giardia lamblia Detected (NotDetected)
== END ==
PROVIDERS: Visit Provider Emergency Medicine
DX: R19.7 Diarrhea, unspecified (principal)
CPT/HCPCS: 36415; 83735; 87507

== ENCOUNTER → 2018-06-21 12:54 | Outpatient (CLI) | payer MEDICAID, SELFPAY ==
--- NOTE | 2018-06-21 12:54 | CA_ITS ---
PROCEDURE: Limited transthoracic echocardiogram to assess left ventricular systolic function. INDICATIONS FOR THE TEST: Chest pain COPD Heart Murmur Tobacco Smoking Palpitations Fatigue Syncope Edema Hypertension Diabetes Mellitus Rheumatic Fever SOB JIANG Obesity Hyperlipidemia Family History HD Additional History CAD,CM,CHF,90 DAYS POST STENT DEFINITY ONLY TO ASSESS EF 04/26/18 EF 30% PATIENT INFORMATION HEIGHT: 69 WEIGHT:250 GENDER: Male B/P:160/90 2-D/M-MODE INTERPRETATION: 2-D MEASUREMENTS OBSERVED VALUES IN CMS Right Ventricular Dimension (RVDd) Interventricular Septum (Thickness)(IVsd) Left Ventricular Internal Dimensions(LVIDd) Left Ventricular Posterior Wall (Thickness)(LVPWd) Aortic Root Aortic Cusp Separation Left Atrial Dimensions (LAD) 2D 1. Technically difficult study, Definity contrast is size delineate endocardial surfaces. 2. Left atrium is mildly enlarged, left ventricle is mildly dilated, there is mild concentric left ventricular hypertrophy, visually estimated ejection fraction approximately 40%, there appears to be hypokinesis involving the inferior wall. 3. The right atrium and right ventricle are relatively normal size and function. 4. The aortic valve is minimally thickened and fibrosed. 5. The mitral and tricuspid valvular minimally thickened. 6. The pulmonic valve is poorly visualized. 7. No significant pericardial effusion noted. DOPPLER INTERROGATION: No Doppler performed CONCLUSION: 1. Mildly enlarged left atrium, mildly dilated left ventricle, visually estimated ejection fraction 40% as described above 2. No significant pericardial effusion noted.
[2018-06-21 14:01] LABS: Basophils # 0.1 K/mm3 (0-0.2); Basophils % 0.8 % (0.1-2.0); Eosinophils # 0.2 K/mm3 (0.0-0.4); Eosinophils % 2.2 % (0.1-12.0); Hematocrit 40.5 % (42.0-52.0); Hemoglobin 13.3 g/dL (14.1-18.0); Lymphocytes # 2.1 K/mm3 (0.7-4.5); Lymphocytes % 29.8 K/mm3 (10-50); Mean Corpuscular Hemoglobin 29.2 pg (27.0-31.2); Mean Corpuscular Volume 88.4 fl (80-94); Mean Platelet Volume 7.4 fl (7.4-10.4); Monocytes # 0.5 K/mm3 (0.1-1.0); Monocytes % 7.7 % (1.7-9.3); Neutrophils # 4.1 K/mm3 (1.8-7.8); Neutrophils % 59.4 % (37.0-80.0); Platelet Count 310 K/mm3 (142-424); Red Blood Count 4.58 M/mm3 (4.60-6.20); Red Cell Distribution Width 16.2 % (11.5-17.5); White Blood Count 6.9 K/mm3 (4.8-10.8)
[2018-06-21 14:46] LABS: Alanine Aminotransferase 32 U/L (12-78); Albumin Level 3.6 gm/dL (3.4-5.0); Albumin/Globulin Ratio 0.9 (1.1-1.8); Alkaline Phosphatase 64 U/L (46-116); Anion Gap 16.6 mEq/L (5-15); Aspartate Amino Transferase 18 U/L (15-37); Bilirubin,Total 0.5 mg/dL (0.2-1.0); Blood Urea Nitrogen 20 mg/dL (7-18); Calcium 7.4 mg/dL (8.5-10.1); Carbon Dioxide 24 mmol/L (21.0-32.0); Chloride 102 mmol/L (98-107); Creatinine,Serum 1.32 mg/dL (0.70-1.30); Estimated Glomerular Filt Rate 57 ml/min (>60); Free T4 (Free Thyroxine) 1.25 ng/dl (0.76-1.46); GFR (African American) 69 ML/MIN (>60); Globulin 4.2 gm/dl (1.3-3.2); Glucose 111 mg/dL (74-106); Potassium 4.6 mmoL/L (3.5-5.1); Sodium 138 mmol/L (136-145); Thyroid Stimulating Hormone 2.06 uIU/ml (0.358-3.740); Total Protein,Serum 7.8 gm/dL (6.4-8.2)
[2018-06-23 14:39] LABS: Magnesium 0.9 mg/dL (1.4-2.2)
== END ==
PROVIDERS: PCP Emergency Medicine; Visit Provider Internal Medicine
DX: I42.9 Cardiomyopathy, unspecified (principal); E11.69 Type 2 diabetes mellitus with other specified complication; E78.5 Hyperlipidemia, unspecified
CPT/HCPCS: 36415; 80053; 83735; 84439; 84443; 85025; 93308

== ENCOUNTER → 2018-06-23 09:06 | Outpatient (CLI) | payer MEDICAID, SELFPAY | PROVIDERS: Visit Provider Emergency Medicine | DX: E61.2 Magnesium deficiency (principal) ==

== ENCOUNTER 2018-06-24 13:05 | Outpatient (CLI) | payer MEDICAID, SELFPAY ==
[2018-06-24] VITALS (8 sets, daily range): BP systolic 105–119; BP diastolic 69–76; PULSE 69–74; RESP 18; TEMP 36.6; O2SAT 95–97
== END 2018-06-24 16:42 | disposition home or self-care (01) ==
LOC: INF 13:05
PROVIDERS: PCP Emergency Medicine; Visit Provider Emergency Medicine
DX: E83.42 Hypomagnesemia (principal)
CPT/HCPCS: 96365; 96366; 96367

== ENCOUNTER → 2018-06-25 11:46 | Outpatient (CLI) | payer MEDICAID, SELFPAY ==
[2018-06-25 14:15] LABS: Magnesium 1.6 mg/dL (1.4-2.2)
== END ==
PROVIDERS: PCP Emergency Medicine; Visit Provider Emergency Medicine
DX: E61.2 Magnesium deficiency (principal)
CPT/HCPCS: 36415; 83735

== ENCOUNTER → 2018-06-28 11:35 | Outpatient (CLI) | payer MEDICAID, SELFPAY | PROVIDERS: Visit Provider Emergency Medicine | DX: Z79.899 Other long term (current) drug therapy (principal) ==

== ENCOUNTER → 2018-07-14 10:58 | Outpatient (CLI) | payer MEDICAID, SELFPAY ==
--- NOTE | 2018-07-14 11:00 | FL_ITS ---
FL barium enema CLINICAL INDICATION: Follow-up polyps ITS.REASON: history of polyps ORDERING PHYSICIAN: Pravin Aquino MD PATIENT AGE: 53 years Comparison: None Fluoroscopy time: 2 minutes and 36 seconds FINDINGS: Draw Press Operator exam is unremarkable. There are surgical clips in right upper quadrant. The colon is visualized from rectum to cecum. The terminal ileum was not demonstrated. The appendix did fill. No annular constricting lesions are evident. Within the upper one third of the descending colon there is a filling defect seen anomalies 2 images and could be due to a small polyp. The margins are smooth. This measures approximately 1 cm. No other polypoid filling defects are evident. IMPRESSION: 1. No annular constricting lesions. 2. Possible 1 cm polyp within the proximal descending colon.
== END ==
PROVIDERS: PCP Emergency Medicine; Visit Provider Surgery
DX: Z12.11 Encounter for screening for malignant neoplasm of colon (principal)
CPT/HCPCS: 74270

== ENCOUNTER → 2018-07-20 15:29 | Outpatient (CLI) | payer MEDICAID, SELFPAY ==
[2018-07-20 17:15] LABS: Blood Urea Nitrogen 26 mg/dL (7-18); Calcium 8.5 mg/dL (8.5-10.1); Carbon Dioxide 29 mmol/L (21.0-32.0); Chloride 103 mmol/L (98-107); Creatinine,Serum 1.35 mg/dL (0.70-1.30); Estimated Glomerular Filt Rate 55 ml/min (>60); GFR (African American) 67 ML/MIN (>60); Glucose 114 mg/dL (74-106); Sodium 140 mmol/L (136-145)
[2018-07-20 17:20] LABS: Anion Gap 13.1 mEq/L (5-15); Potassium 5.1 mmoL/L (3.5-5.1)
[2018-07-20 17:31] LABS: Magnesium 0.7 mg/dL (1.4-2.2)
== END ==
PROVIDERS: PCP Emergency Medicine; Visit Provider Emergency Medicine
DX: E83.42 Hypomagnesemia (principal); E83.51 Hypocalcemia
CPT/HCPCS: 36415; 80048; 83735

== ENCOUNTER → 2018-07-21 10:54 | Outpatient (CLI) | payer MEDICAID, SELFPAY ==
[2018-07-21 11:19] LABS: Magnesium 1.2 mg/dL (1.4-2.2)
== END ==
PROVIDERS: PCP Emergency Medicine; Visit Provider Emergency Medicine
DX: E83.42 Hypomagnesemia (principal); E83.51 Hypocalcemia
CPT/HCPCS: 36415; 83735

== ENCOUNTER → 2018-07-28 07:05 | Outpatient (CLI) | payer MEDICAID, SELFPAY ==
--- NOTE | 2018-07-28 07:07 | NM_ITS ---
History and Indications: Preop cardiovascular risk assessment, hypertension hyperlipidemia and diabetes. Chest pain Procedure: Patient received a 0.4 mg of intravenous Lexiscan, resting heart rate was 79 bpm, resting blood pressure 148/103, with Lexiscan maximum heart rate achieved was 79 bpm which is less than 85% of the maximum predicted heart rate and a blood pressure was 152/100. With Lexiscan patient complained of nausea and vomiting, requiring intravenous Aminophyllin to reverse symptoms. Electrocardiogram: Resting electrocardiogram showed sinus rhythm, with Lexiscan there is less than 1.[address] segment depression noted from the baseline EKG. The EKG portion of the Lexiscan Myoview is nondiagnostic. Cardiac stress and resting SPECT images: Cardiac stress and rest SPECT images were obtained using technetium 99 Myoview 31.9 mCi at stress and 10.8 mCi at rest. Gated SPECT further analysis of segmental wall motion and calculation of the ejection fraction also done. Cardiac stress and rest images show moderate to large size area of partial reversible defect involving the anterolateral, inferolateral wall, computer derived ejection fraction is 37% with marked inferolateral wall hypokinesis. Right ventricle is normal size and contractility. Conclusion: 1. The EKG portion of the Lexiscan Myoview is nondiagnostic. 2. Scintigraphic evidence of partial reversible defect suggestive of ischemia and scar involving the anterolateral lateral and inferolateral wall. Computer derived ejection fraction is 37% with segmental wall motion abnormalities described above, right ventricle is normal size and contractility. 3. Abnormal Lexiscan Myoview study.
--- NOTE | 2018-07-28 10:24 | HMH.ITSHM ---
asa protonix zantac bisoprolol plavix metformin lipator zanax
== END ==
PROVIDERS: PCP Emergency Medicine; Visit Provider Internal Medicine
DX: R07.9 Chest pain, unspecified (principal); E11.69 Type 2 diabetes mellitus with other specified complication; E78.5 Hyperlipidemia, unspecified; E83.42 Hypomagnesemia; E83.51 Hypocalcemia; F17.200 Nicotine dependence, unspecified, uncomplicated; F41.9 Anxiety disorder, unspecified; I10 Essential (primary) hypertension; I25.10 Atherosclerotic heart disease of native coronary artery without angina pectoris; I25.5 Ischemic cardiomyopathy; I50.20 Unspecified systolic (congestive) heart failure; N28.9 Disorder of kidney and ureter, unspecified
CPT/HCPCS: 78452; 93017; A9502; J2785

== ENCOUNTER 2018-07-29 11:57 | Outpatient (CLI) | payer MEDICAID, SELFPAY ==
[2018-07-29 12:37] LABS: Calcium 8.5 mg/dL (8.5-10.1)
[2018-07-29 12:59] LABS: Magnesium 0.8 mg/dL (1.4-2.2)
[2018-07-29 15:01] VITALS: BP 91/61; PULSE 90; RESP 16; TEMP 36.6; O2SAT 97; BMI 36.9
[2018-07-29 15:14] VITALS: BP 97/82; PULSE 82; RESP 18; O2SAT 95
[2018-07-29 16:22] VITALS: BP 84/45; PULSE 76; RESP 18; O2SAT 95
[2018-07-29 17:24] VITALS: BP 102/55; PULSE 68; RESP 20; TEMP 36.9; O2SAT 96
[2018-07-29 18:42] VITALS: BP 99/45; PULSE 78; RESP 20; TEMP 36.9; O2SAT 96
== END 2018-07-29 18:35 | disposition home or self-care (01) ==
LOC: LAB 11:58 → INF 14:34
PROVIDERS: Nurse Practitioner Family; PCP Emergency Medicine; Visit Provider Emergency Medicine
DX: E83.42 Hypomagnesemia (principal); E83.51 Hypocalcemia
CPT/HCPCS: 36415; 82310; 83735; 96365; 96366

== ENCOUNTER → 2018-08-04 12:01 | Outpatient (CLI) | payer MEDICAID, SELFPAY ==
[2018-08-04 13:05] LABS: Anion Gap 17.1 mEq/L (5-15); Blood Urea Nitrogen 23 mg/dL (7-18); Calcium 9.2 mg/dL (8.5-10.1); Carbon Dioxide 24 mmol/L (21.0-32.0); Chloride 98 mmol/L (98-107); Creatinine,Serum 1.68 mg/dL (0.70-1.30); Estimated Glomerular Filt Rate 43 ml/min (>60); GFR (African American) 52 ML/MIN (>60); Glucose 150 mg/dL (74-106); Potassium 5.1 mmoL/L (3.5-5.1); Sodium 134 mmol/L (136-145)
== END ==
PROVIDERS: PCP Emergency Medicine; Visit Provider Internal Medicine Cardiovascular Disease
DX: I50.20 Unspecified systolic (congestive) heart failure (principal); E83.42 Hypomagnesemia; I25.118 Atherosclerotic heart disease of native coronary artery with other forms of angina pectoris
CPT/HCPCS: 36415; 80048; 83735; 83880

== ENCOUNTER 2018-08-08 12:58 | Outpatient (CLI) | payer MEDICAID, SELFPAY ==
[2018-08-08 13:20] VITALS: BP 115/65; PULSE 79; RESP 18; TEMP 36.7; O2SAT 100
[2018-08-08 13:50] VITALS: BP 119/62; PULSE 74; RESP 18; O2SAT 99
[2018-08-08 14:20] VITALS: BP 117/78; PULSE 72; RESP 18; O2SAT 99
== END 2018-08-08 14:30 | disposition home or self-care (01) ==
LOC: INF 12:58
PROVIDERS: PCP Emergency Medicine; Visit Provider Physician Assistant
DX: E83.42 Hypomagnesemia (principal)
CPT/HCPCS: 96365

== ENCOUNTER → 2018-08-11 10:55 | Outpatient (CLI) | payer MEDICAID, SELFPAY ==
[2018-08-11 13:07] LABS: Anion Gap 13.4 mEq/L (5-15); Blood Urea Nitrogen 48 mg/dL (7-18); Calcium 9.2 mg/dL (8.5-10.1); Carbon Dioxide 26 mmol/L (21.0-32.0); Chloride 102 mmol/L (98-107); Creatinine,Serum 1.69 mg/dL (0.70-1.30); Estimated Glomerular Filt Rate 43 ml/min (>60); GFR (African American) 52 ML/MIN (>60); Glucose 148 mg/dL (74-106); Sodium 135 mmol/L (136-145)
[2018-08-11 13:16] LABS: Potassium 6.4 mmoL/L (3.5-5.1)
== END ==
PROVIDERS: PCP Emergency Medicine; Visit Provider Physician Assistant
DX: I25.5 Ischemic cardiomyopathy (principal); I50.20 Unspecified systolic (congestive) heart failure; R06.09 Other forms of dyspnea; R60.9 Edema, unspecified
CPT/HCPCS: 36415; 80048; 83735; 83880

== ENCOUNTER → 2018-08-12 09:04 | Outpatient (CLI) | payer MEDICAID, SELFPAY ==
[2018-08-12 10:08] LABS: Anion Gap 14.8 mEq/L (5-15); Blood Urea Nitrogen 49 mg/dL (7-18); Calcium 9.5 mg/dL (8.5-10.1); Carbon Dioxide 24 mmol/L (21.0-32.0); Chloride 100 mmol/L (98-107); Creatinine,Serum 1.87 mg/dL (0.70-1.30); Estimated Glomerular Filt Rate 38 ml/min (>60); GFR (African American) 46 ML/MIN (>60); Glucose 134 mg/dL (74-106); Potassium 5.8 mmoL/L (3.5-5.1); Sodium 133 mmol/L (136-145)
[2018-08-12 10:10] LABS: Magnesium 0.9 mg/dL (1.4-2.2)
== END ==
PROVIDERS: PCP Emergency Medicine; Visit Provider Physician Assistant
DX: I10 Essential (primary) hypertension (principal)
CPT/HCPCS: 36415; 80048; 83735

== ENCOUNTER 2018-08-15 12:10 | Outpatient (CLI) | payer MEDICAID, SELFPAY ==
[2018-08-15 13:00] VITALS: BP 114/75; PULSE 69; RESP 20; TEMP 36.9; O2SAT 95
[2018-08-15 13:10] VITALS: BP 106/64; PULSE 69; RESP 20; TEMP 36.9; O2SAT 97
[2018-08-15 13:30] VITALS: BP 106/68; PULSE 68; RESP 20; TEMP 36.9; O2SAT 96
[2018-08-15 14:00] VITALS: BP 107/55; PULSE 68; RESP 20; TEMP 36.7; O2SAT 96
[2018-08-15 14:13] VITALS: BMI 35.7
[2018-08-15 14:34] LABS: Anion Gap 14.7 mEq/L (5-15); Blood Urea Nitrogen 55 mg/dL (7-18); Carbon Dioxide 24 mmol/L (21.0-32.0); Chloride 100 mmol/L (98-107); Creatinine Clearance Estimated 70 mL/min (0-300); Creatinine,Serum 1.93 mg/dL (0.70-1.30); Estimated Glomerular Filt Rate 37 ml/min (>60); GFR (African American) 44 ML/MIN (>60); Glucose 160 mg/dL (74-106); Magnesium 1.7 mg/dL (1.4-2.2); Potassium 4.7 mmoL/L (3.5-5.1); Sodium 134 mmol/L (136-145)
== END 2018-08-15 14:10 | disposition home or self-care (01) ==
LOC: INF 12:10
PROVIDERS: Visit Provider Physician Assistant
DX: E83.42 Hypomagnesemia (principal)
CPT/HCPCS: 80048; 83735; 96365

== ENCOUNTER → 2018-08-22 12:22 | Outpatient (CLI) | payer MEDICAID, SELFPAY ==
[2018-08-22 12:40] VITALS: BP 84/53; PULSE 68; RESP 20; TEMP 36.9; O2SAT 96
[2018-08-22 13:15] VITALS: BP 112/70; PULSE 68; RESP 20; TEMP 36.9; O2SAT 96
[2018-08-22 13:40] VITALS: BP 102/60; PULSE 72; RESP 20; TEMP 36.7; O2SAT 96
== END ==
PROVIDERS: Visit Provider Physician Assistant
DX: E83.42 Hypomagnesemia (principal)
CPT/HCPCS: 96365

== ENCOUNTER → 2018-08-25 11:50 | Outpatient (CLI) | payer MEDICAID, SELFPAY ==
[2018-08-25 11:55] LABS: Microscopic, Urine URINE MICROSCOPIC (MICROSCOPIC)
[2018-08-25 12:47] LABS: Basophils # 0.1 K/mm3 (0-0.2); Basophils % 0.6 % (0.1-2.0); Eosinophils # 0.2 K/mm3 (0.0-0.4); Eosinophils % 1.6 % (0.1-12.0); Hematocrit 38.4 % (42.0-52.0); Hemoglobin 12.5 g/dL (14.1-18.0); Lymphocytes % 29.7 K/mm3 (10-50); Mean Corpuscular HGB Conc 32.4 g/dL (31.8-35.4); Mean Corpuscular Hemoglobin 27.8 pg (27.0-31.2); Mean Corpuscular Volume 85.6 fl (80-94); Mean Platelet Volume 7.1 fl (7.4-10.4); Monocytes # 0.6 K/mm3 (0.1-1.0); Monocytes % 5.9 % (1.7-9.3); Neutrophils # 6.3 K/mm3 (1.8-7.8); Neutrophils % 62.2 % (37.0-80.0); Platelet Count 296 K/mm3 (142-424); Red Blood Count 4.48 M/mm3 (4.60-6.20); Red Cell Distribution Width 13.6 % (11.5-17.5); White Blood Count 10.1 K/mm3 (4.8-10.8)
[2018-08-25 12:50] LABS: Appearance,Urine CLEAR (Clear); Bilirubin,Urine Negative (Negative); Blood, Urine Negative (Negative); Color,Urine YELLOW (Yellow); Glucose,Urine (UA) Negative (Negative); Ketones,Urine Negative (Negative); Leukocyte Esterase,Urine TRACE (Negative); Nitrate,Urine Negative (Negative); Protein,Urine Negative (Negative)
[2018-08-25 12:54] LABS: Creatinine,Urine Random 19 mg/dL (20-320)
[2018-08-25 13:01] LABS: Bacteria,Urine Trace /lpf; Squamous Epithelial Cell,Urine Occasional #/hpf (0-5); WBC,Urine Occasional #/hpf (0-3)
[2018-08-25 13:15] LABS: Total Protein,Urine Random 1.8 mg/dL (0.0-11.9)
[2018-08-25 13:19] LABS: Albumin Level 3.7 gm/dL (3.4-5.0); Anion Gap 16.8 mEq/L (5-15); Blood Urea Nitrogen 62 mg/dL (7-18); Calcium 8.2 mg/dL (8.5-10.1); Carbon Dioxide 24 mmol/L (21.0-32.0); Chloride 100 mmol/L (98-107); Estimated Glomerular Filt Rate 30 ml/min (>60); GFR (African American) 36 ML/MIN (>60); Glucose 103 mg/dL (74-106); Phosphorous 3.8 mg/dL (2.4-4.9); Potassium 4.8 mmoL/L (3.5-5.1); Sodium 136 mmol/L (136-145)
[2018-08-25 13:24] LABS: Magnesium 0.7 mg/dL (1.4-2.2)
[2018-08-26 18:07] LABS: Parathyroid Hormone Intact 59 pg/mL (15-65); Vitamin D 25 Hydroxy 20.2 ng/mL (30.0-100.0)
== END ==
PROVIDERS: Internal Medicine Nephrology; PCP Emergency Medicine; Visit Provider Internal Medicine Cardiovascular Disease
DX: E83.42 Hypomagnesemia (principal); E83.51 Hypocalcemia; N28.9 Disorder of kidney and ureter, unspecified
CPT/HCPCS: 36415; 80069; 81001; 82570; 82652; 83735; 83970; 84155; 85025

== ENCOUNTER 2018-08-29 11:46 | Outpatient (CLI) | payer MEDICAID, SELFPAY ==
[2018-08-29 12:09] VITALS: BP 98/67; PULSE 93; RESP 18; TEMP 36.7; O2SAT 98
[2018-08-29 12:39] VITALS: BP 94/62; PULSE 89; RESP 18; O2SAT 98
[2018-08-29 13:09] VITALS: BP 101/64; PULSE 81; RESP 18; O2SAT 99
== END 2018-08-29 13:19 | disposition home or self-care (01) ==
LOC: INF 11:46
PROVIDERS: Visit Provider Physician Assistant
DX: E83.42 Hypomagnesemia (principal)
CPT/HCPCS: 96365

== ENCOUNTER → 2018-09-01 14:41 | Outpatient (POV) | payer MEDICAID, SELFPAY | PROVIDERS: Visit Provider Internal Medicine Nephrology | DX: Z00.00 Encounter for general adult medical examination without abnormal findings (principal) ==

== ENCOUNTER 2018-09-02 10:35 | Outpatient (CLI) | payer MEDICAID, SELFPAY ==
[2018-09-02 10:35] VITALS: BMI 36.9
[2018-09-02 10:55] VITALS: BP 126/86; PULSE 86; RESP 18; TEMP 36.3; O2SAT 100
[2018-09-02 10:55] LABS: Magnesium 0.5 mg/dL (1.4-2.2)
[2018-09-02 11:10] VITALS: BP 124/81; PULSE 83; RESP 18; TEMP 36.3; O2SAT 99
[2018-09-02 11:15] LABS: POC Glucose,Bedside 276 (70-110)
[2018-09-02 11:25] VITALS: BP 125/83; PULSE 80; RESP 18; TEMP 36.3; O2SAT 100
[2018-09-02 11:40] VITALS: BP 110/72; PULSE 77; RESP 18; TEMP 36.3; O2SAT 99
[2018-09-02 12:05] VITALS: BP 106/71; PULSE 70; RESP 18; TEMP 36.3; O2SAT 100
== END 2018-09-02 12:05 | disposition home or self-care (01) ==
LOC: INF 10:41
PROVIDERS: Visit Provider Internal Medicine Nephrology
DX: E83.42 Hypomagnesemia (principal)
CPT/HCPCS: 82962; 83735; 96365

== ENCOUNTER 2018-09-05 10:50 | Outpatient (CLI) | payer MEDICAID, SELFPAY ==
[2018-09-05 11:06] VITALS: BP 123/80; PULSE 72; RESP 18; TEMP 36.1; O2SAT 97
[2018-09-05 11:36] VITALS: BP 128/79; PULSE 78; RESP 18; O2SAT 96
[2018-09-05 12:06] VITALS: BP 126/81; PULSE 76; RESP 18; O2SAT 96
[2018-09-05 12:23] VITALS: BP 121/74; PULSE 70; RESP 18; O2SAT 98
--- NOTE | 2018-09-08 07:15 | HMH.ANESCL ---
[facility] Anesthesia Checklist - Patient Identification Patient Identification: Arm Band, Verbal (Name & ) - Structural Data Admitted From: Home Planned Operative Procedure/s: colon Consent for Planned Operative Procedure(s) Verified: Yes Verified Documents: History and Physical - NPO Status Verified Time NPO: 00:00 - Additional verifications Patient : No Anesthesia Reactions: No Hx Blood Transfusions: No Blood Transfusion Reaction: No Cephalosporin Allergy: No Previous Colonoscopy: Yes - Cardiovascular Assessment Heart Sounds: S1 & S2 Pulse Strength: Baseline Pulse Rhythm: Regular Peripheral Edema: No - Airway Assessment C-Spine Mobility Assessed: Yes TMJ Mobility Assessed: Yes Dentition: Edentulous - Neurological Assessment Level of Consciousness: Awake, Alert, Appropriate Hx Seizures: No Numbness or tingling in extremities: No - Anesthesia Plan Anesthesia Risk discussed: Yes Anesthesia Plan: Verified ASA Class: III Anesthesia Type: MAC [facility] History I have reviewed the patient's past medical history: Yes Medical History: Reports:: Anxiety, Congestive Heart Failure, Coronary Artery Disease, Deep Vein Thrombosis, Depression, Diabetes Mellitus Type 2, Hyperlipidemia, Hypertension, MRSA Denies:: Cancer, Diabetes Mellitus Type 1, Seizures Other Medical History: Reports: Glaucoma, Hypothyroidism, Other Laterality Cases: Left: Other, Bilateral: Tonsillectomy Other Surgeries: Yes: Angiogram, Angioplasty, Cardiac Catheterization, Cardiac Surgery, Cholecystectomy, Colonoscopy, Coronary Stent, Other Amputation: No Fractures: Yes - *Social History Smoking Status: Light tobacco smoker Tobacco Type: cigarettes # Packs/Day (cigarettes): 1 Alcohol Intake: never Alcohol Intake Frequency:: a few times a week Substance Use Type: denies use Occupational Status: unemployed, disabled Housing: house Household Members: family - Psychiatric History Pschychiatric History:: Reports:: Anxiety, Depression *Family Hx:: Heart Attack, Coronary Artery Disease
== END 2018-09-05 12:25 | disposition home or self-care (01) ==
LOC: INF 10:50
PROVIDERS: Visit Provider Internal Medicine Nephrology
DX: E83.42 Hypomagnesemia (principal)
CPT/HCPCS: 96365

== ENCOUNTER 2018-09-12 11:16 | Outpatient (CLI) | payer MEDICAID, SELFPAY ==
[2018-09-12 12:17] VITALS: BP 108/72; PULSE 80; RESP 18; TEMP 36.6; O2SAT 99
[2018-09-12 12:47] VITALS: BP 110/78; PULSE 79; RESP 18; O2SAT 98
[2018-09-12 13:10] VITALS: BP 107/77; PULSE 77; RESP 18; O2SAT 98
== END 2018-09-12 13:15 | disposition home or self-care (01) ==
LOC: INF 11:16
PROVIDERS: Visit Provider Physician Assistant
DX: E83.42 Hypomagnesemia (principal)
CPT/HCPCS: 96365

== ENCOUNTER 2018-09-19 10:58 | Outpatient (CLI) | payer MEDICAID, SELFPAY ==
[2018-09-19 10:50] VITALS: BP 118/73; PULSE 77; RESP 18; TEMP 36.1
[2018-09-19 11:20] VITALS: BP 114/70; PULSE 77; RESP 18
[2018-09-19 11:50] VITALS: BP 121/77; PULSE 77; RESP 18
[2018-09-19 12:10] VITALS: BP 130/73; PULSE 70; RESP 18
== END 2018-09-19 12:10 | disposition home or self-care (01) ==
LOC: INF 10:59
PROVIDERS: Visit Provider Physician Assistant
DX: E83.42 Hypomagnesemia (principal)
CPT/HCPCS: 96365

== ENCOUNTER → 2018-09-19 12:24 | Outpatient (CLI) | payer MEDICAID, SELFPAY ==
--- NOTE | 2018-09-19 12:26 | NM_ITS ---
Cardiac MUGA scan Patient received the 27.2 mCi of technetium 99 sodium pretechnitate, resting MUGA scan was performed in the standard view. Which shows an ejection fraction of 51% with no regional wall motion abnormality.
--- NOTE | 2018-09-19 13:27 | HMH.ITSHM ---
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 []SPIRONOLACTONE RANITIDINE PANTOPRAZOLE METFORMIN LEVOTHYROXINE FUROSEMIDE ATORVASTATIN LISINOPRIL CLOPIDOGREL ASA ALPRAZOLAM
== END ==
PROVIDERS: PCP Emergency Medicine; Visit Provider Internal Medicine Cardiovascular Disease
DX: I25.5 Ischemic cardiomyopathy (principal); I25.118 Atherosclerotic heart disease of native coronary artery with other forms of angina pectoris; E11.69 Type 2 diabetes mellitus with other specified complication; E11.8 Type 2 diabetes mellitus with unspecified complications; E78.2 Mixed hyperlipidemia; E78.5 Hyperlipidemia, unspecified; E83.42 Hypomagnesemia; E83.51 Hypocalcemia; F17.200 Nicotine dependence, unspecified, uncomplicated; F41.9 Anxiety disorder, unspecified; I10 Essential (primary) hypertension; I50.20 Unspecified systolic (congestive) heart failure; N28.9 Disorder of kidney and ureter, unspecified; R60.9 Edema, unspecified
CPT/HCPCS: 78473; A9512; A9560

== ENCOUNTER 2018-09-26 11:37 | Outpatient (CLI) | payer MEDICAID, SELFPAY ==
[2018-09-26 12:00] VITALS: BP 107/67; PULSE 74; RESP 18; TEMP 36.3; O2SAT 97
[2018-09-26 12:30] VITALS: BP 104/66; PULSE 79; RESP 18; O2SAT 97
[2018-09-26 13:00] VITALS: BP 108/64; PULSE 75; RESP 18; O2SAT 97
[2018-09-26 13:10] VITALS: BP 107/66; PULSE 76; RESP 18; O2SAT 97
== END 2018-09-26 13:18 | disposition home or self-care (01) ==
LOC: INF 11:37
PROVIDERS: Visit Provider Internal Medicine
DX: E83.42 Hypomagnesemia (principal)
CPT/HCPCS: 96365

== ENCOUNTER 2018-10-03 11:35 | Outpatient (CLI) | payer MEDICAID, SELFPAY ==
[2018-10-03 11:39] VITALS: BMI 36.9
[2018-10-03 11:47] VITALS: BP 128/87; PULSE 86; RESP 18; TEMP 36.4; O2SAT 97
[2018-10-03 11:57] LABS: Anion Gap 17.2 mEq/L (5-15); Blood Urea Nitrogen 46 mg/dL (7-18); Calcium 7.9 mg/dL (8.5-10.1); Carbon Dioxide 22 mmol/L (21.0-32.0); Chloride 101 mmol/L (98-107); Creatinine Clearance Estimated 72 mL/min (50-200); Creatinine,Serum 1.92 mg/dL (0.70-1.30); Estimated Glomerular Filt Rate 37 ml/min (>60); GFR (African American) 45 ML/MIN (>60); Glucose 137 mg/dL (74-106); Potassium 5.2 mmoL/L (3.5-5.1); Sodium 135 mmol/L (136-145)
[2018-10-03 11:59] LABS: Magnesium 0.6 mg/dL (1.4-2.2)
[2018-10-03 12:17] VITALS: BP 122/81; PULSE 84; RESP 18; O2SAT 98
[2018-10-03 12:55] VITALS: BP 121/75; PULSE 76; RESP 18; O2SAT 97
== END 2018-10-03 13:05 | disposition home or self-care (01) ==
LOC: INF 11:35
PROVIDERS: Visit Provider Physician Assistant
DX: E83.42 Hypomagnesemia (principal)
CPT/HCPCS: 80048; 83735; 96365

== ENCOUNTER 2018-10-10 11:34 | Outpatient (CLI) | payer MEDICAID, SELFPAY ==
[2018-10-10 11:55] VITALS: BP 106/71; PULSE 86; RESP 18; TEMP 36.6; O2SAT 97
[2018-10-10 12:10] VITALS: BP 118/67; PULSE 78; RESP 18; TEMP 36.7; O2SAT 98
[2018-10-10 12:25] VITALS: BP 105/68; PULSE 74; RESP 16; TEMP 36.7; O2SAT 98
[2018-10-10 12:40] VITALS: BP 128/74; PULSE 84; RESP 20; TEMP 36.7; O2SAT 99
[2018-10-10 12:55] VITALS: BP 114/65; PULSE 79; RESP 18; TEMP 36.7; O2SAT 99
[2018-10-10 13:15] VITALS: BP 108/72; PULSE 74; RESP 18; TEMP 36.7; O2SAT 100
== END 2018-10-10 13:20 | disposition home or self-care (01) ==
LOC: INF 11:34
PROVIDERS: Visit Provider Physician Assistant
DX: E83.42 Hypomagnesemia (principal)
CPT/HCPCS: 96365

== ENCOUNTER 2018-10-17 11:38 | Outpatient (CLI) | payer MEDICAID, SELFPAY ==
[2018-10-17 11:38] VITALS: BP 118/74; PULSE 68; RESP 20; TEMP 36.9; O2SAT 96
[2018-10-17 12:30] VITALS: BP 118/74; PULSE 68; RESP 20; TEMP 36.9
[2018-10-17 13:10] VITALS: BP 110/74; PULSE 68; RESP 20; TEMP 36.9; O2SAT 96
== END 2018-10-17 13:10 | disposition home or self-care (01) ==
LOC: INF 11:39
PROVIDERS: Visit Provider Physician Assistant
DX: E83.42 Hypomagnesemia (principal)
CPT/HCPCS: 96365

== ENCOUNTER 2018-10-26 11:25 | Outpatient (CLI) | payer MEDICAID, SELFPAY ==
[2018-10-26 11:50] VITALS: BP 106/67; PULSE 77; RESP 18; O2SAT 98
[2018-10-26 12:20] VITALS: BP 124/71; PULSE 79; RESP 18
[2018-10-26 12:50] VITALS: BP 105/75; PULSE 77; RESP 18
[2018-10-26 13:00] VITALS: BP 111/70; PULSE 74; RESP 18
== END 2018-10-26 13:20 | disposition home or self-care (01) ==
LOC: INF 11:33
PROVIDERS: Visit Provider Physician Assistant
DX: E83.42 Hypomagnesemia (principal)
CPT/HCPCS: 96365

== ENCOUNTER 2018-10-31 11:26 | Outpatient (CLI) | payer MEDICAID, SELFPAY ==
[2018-10-31 11:41] VITALS: BP 105/63; PULSE 74; RESP 18; TEMP 36.6; O2SAT 97
[2018-10-31 12:11] VITALS: BP 109/67; PULSE 71; RESP 18; O2SAT 97
[2018-10-31 12:41] VITALS: BP 107/69; PULSE 72; RESP 18; O2SAT 97
== END 2018-10-31 12:50 | disposition home or self-care (01) ==
LOC: INF 11:26
PROVIDERS: Visit Provider Internal Medicine
DX: E83.42 Hypomagnesemia (principal)
CPT/HCPCS: 96365

== ENCOUNTER 2018-11-07 11:34 | Outpatient (CLI) | payer MEDICAID, SELFPAY ==
[2018-11-07 11:30] VITALS: BP 105/71; PULSE 68; RESP 20; TEMP 36.9; O2SAT 96
[2018-11-07 12:25] VITALS: BP 110/74; PULSE 80; RESP 20; TEMP 36.9; O2SAT 95
[2018-11-07 12:50] VITALS: BP 110/75; PULSE 80; RESP 20; TEMP 36.9; O2SAT 95
== END 2018-11-07 12:50 | disposition home or self-care (01) ==
LOC: INF 11:34
PROVIDERS: Visit Provider Physician Assistant
DX: E83.42 Hypomagnesemia (principal)
CPT/HCPCS: 96365

== ENCOUNTER 2018-11-14 11:48 | Outpatient (CLI) | payer MEDICAID, SELFPAY ==
[2018-11-14 11:48] VITALS: BMI 36.9
[2018-11-14 12:15] VITALS: BP 123/73; PULSE 68; RESP 20; TEMP 36.9; O2SAT 95
[2018-11-14 12:45] VITALS: BP 112/71; PULSE 68; RESP 20; TEMP 36.9; O2SAT 95
[2018-11-14 13:15] VITALS: BP 112/68; PULSE 78; RESP 18; O2SAT 94
== END 2018-11-14 13:20 | disposition home or self-care (01) ==
LOC: INF 11:48
PROVIDERS: Visit Provider Internal Medicine
DX: E83.42 Hypomagnesemia (principal)
CPT/HCPCS: 83735; 96365

== ENCOUNTER 2018-11-21 12:13 | Outpatient (CLI) | payer MEDICAID, SELFPAY ==
[2018-11-21 12:15] VITALS: BP 120/75; PULSE 92; RESP 18; TEMP 36.3; O2SAT 100
[2018-11-21 12:45] VITALS: BP 122/74; PULSE 91; RESP 18; O2SAT 99
[2018-11-21 13:15] VITALS: BP 118/71; PULSE 90; RESP 18; O2SAT 99
[2018-11-21 13:35] VITALS: BP 125/70; PULSE 89; RESP 18; O2SAT 100
== END 2018-11-21 13:35 | disposition home or self-care (01) ==
LOC: INF 12:13
PROVIDERS: Visit Provider Internal Medicine
DX: E83.42 Hypomagnesemia (principal)
CPT/HCPCS: 96365

== ENCOUNTER 2018-11-28 11:51 | Outpatient (CLI) | payer MEDICAID, SELFPAY ==
[2018-11-28 12:10] VITALS: BP 120/74; PULSE 68; RESP 20; TEMP 36.9; O2SAT 95
[2018-11-28 12:40] VITALS: BP 118/74; PULSE 68; RESP 20; TEMP 36.9; O2SAT 95
[2018-11-28 13:10] VITALS: BP 112/74; PULSE 68; RESP 20; TEMP 36.9; O2SAT 95
== END 2018-11-28 13:15 | disposition home or self-care (01) ==
LOC: INF 11:51
PROVIDERS: Visit Provider Internal Medicine
DX: E83.42 Hypomagnesemia (principal)
CPT/HCPCS: 96365

== ENCOUNTER 2018-12-05 11:47 | Outpatient (CLI) | payer MEDICAID, SELFPAY ==
[2018-12-05 11:58] VITALS: BP 117/70; PULSE 73; RESP 20; TEMP 36.6; O2SAT 98
[2018-12-05 12:28] VITALS: BP 115/74; PULSE 71; RESP 20; O2SAT 97
[2018-12-05 12:58] VITALS: BP 112/71; PULSE 76; RESP 20; O2SAT 98
[2018-12-05 13:10] VITALS: BP 110/60; PULSE 72; RESP 20; O2SAT 98
== END 2018-12-05 13:10 | disposition home or self-care (01) ==
LOC: INF 11:47
PROVIDERS: Visit Provider Internal Medicine
DX: E83.42 Hypomagnesemia (principal)
CPT/HCPCS: 96365

== ENCOUNTER 2018-12-12 11:49 | Outpatient (CLI) | payer MEDICAID, SELFPAY ==
[2018-12-12 11:45] VITALS: BP 105/55; PULSE 68; RESP 20; TEMP 36.9; O2SAT 95
[2018-12-12 11:49] VITALS: BMI 36.9
[2018-12-12 12:15] VITALS: BP 98/60; PULSE 68; RESP 20; TEMP 36.9; O2SAT 95
[2018-12-12 12:45] VITALS: BP 121/62; PULSE 68; RESP 20; TEMP 36.9; O2SAT 95
== END 2018-12-12 12:50 | disposition home or self-care (01) ==
LOC: INF 11:49
PROVIDERS: Visit Provider Internal Medicine
DX: E83.42 Hypomagnesemia (principal)
CPT/HCPCS: 83735; 96365

== ENCOUNTER 2018-12-19 13:03 | Outpatient (CLI) | payer MEDICAID, SELFPAY ==
[2018-12-19 13:32] VITALS: BP 94/58; PULSE 74; RESP 18; TEMP 36.4; O2SAT 99
[2018-12-19 14:15] VITALS: BP 99/54; PULSE 70; RESP 18; TEMP 36.6; O2SAT 97
[2018-12-19 14:42] VITALS: BP 96/62; PULSE 68; RESP 18; TEMP 36.5; O2SAT 99
== END 2018-12-19 14:57 | disposition home or self-care (01) ==
LOC: INF 13:03
PROVIDERS: Visit Provider Internal Medicine
DX: E83.42 Hypomagnesemia (principal)
CPT/HCPCS: 96365

== ENCOUNTER 2018-12-26 12:05 | Outpatient (CLI) | payer MEDICAID, SELFPAY ==
[2018-12-26 12:06] LABS: Adenovirus F 40/41, stool Not Detected (NotDetected); Astrovirus Not Detected (NotDetected); Campylobacter Not Detected (NotDetected); Clostridium Difficile A/B, PCR Not Detected (NotDetected); Cryptosporidium Not Detected (NotDetected); Cyclospora Cayetanesis Not Detected (NotDetected); Entamoeba histolytica Not Detected (NotDetected); Enteroaggregative E coli Not Detected (NotDetected); Enteropathogenic E coli Not Detected (NotDetected); Enterotoxigenic E coli Not Detected (NotDetected); Giardia lamblia Not Detected (NotDetected); Norovirus Not Detected (NotDetected); Plesimonas Shigalloides, PCR Not Detected (NotDetected); Rotavirus A Not Detected (NotDetected); Salmonella, PCR Not Detected (NotDetected); Sapovirus Not Detected (NotDetected); Shiga-like toxin E coli Not Detected (NotDetected); Shigella Enterovasive E coli Not Detected (NotDetected); Vibrio Cholerae Not Detected (NotDetected); Vibrio, PCR Not Detected (NotDetected); Yersinia Entercolitica, PCR Not Detected (NotDetected)
[2018-12-26 12:18] VITALS: BP 113/72; PULSE 76; RESP 18; TEMP 36.6; O2SAT 96
[2018-12-26 12:48] VITALS: BP 116/74; PULSE 74; RESP 18; O2SAT 97
[2018-12-26 13:18] VITALS: BP 112/71; PULSE 71; RESP 18; O2SAT 96
[2018-12-26 13:30] VITALS: BP 111/72; PULSE 72; RESP 18; O2SAT 97
== END 2018-12-26 13:30 | disposition home or self-care (01) ==
LOC: INF 12:05
PROVIDERS: Nurse Practitioner Family; Visit Provider Internal Medicine
DX: E83.42 Hypomagnesemia (principal)
CPT/HCPCS: 87506; 96365

== ENCOUNTER 2019-01-02 11:45 | Outpatient (CLI) | payer MEDICAID, SELFPAY ==
[2019-01-02 11:30] VITALS: BP 113/73; PULSE 74; RESP 18; TEMP 36.9; O2SAT 99
[2019-01-02 11:50] VITALS: BP 110/65; PULSE 73; RESP 18; TEMP 36.9; O2SAT 97
[2019-01-02 12:20] VITALS: BP 97/62; PULSE 74; RESP 18; TEMP 36.9; O2SAT 98
[2019-01-02 12:50] VITALS: BP 96/69; PULSE 69; RESP 18; TEMP 36.9; O2SAT 98
[2019-01-02 13:05] VITALS: BP 95/64; PULSE 67; RESP 18; TEMP 36.9; O2SAT 98
== END 2019-01-02 13:10 | disposition home or self-care (01) ==
LOC: INF 11:52
PROVIDERS: Visit Provider Internal Medicine
DX: E83.42 Hypomagnesemia (principal)
CPT/HCPCS: 96365

== ENCOUNTER 2019-01-09 11:45 | Outpatient (CLI) | payer MEDICAID, SELFPAY ==
[2019-01-09 11:51] VITALS: BMI 36.9
[2019-01-09 12:06] VITALS: BP 118/72; PULSE 76; RESP 18; TEMP 36.7; O2SAT 98
[2019-01-09 12:20] LABS: Magnesium 0.9 mg/dL (1.4-2.2)
[2019-01-09 12:26] VITALS: BP 120/77; PULSE 74; RESP 18; O2SAT 97
[2019-01-09 13:06] VITALS: BP 115/76; PULSE 75; RESP 18; O2SAT 97
[2019-01-09 13:25] VITALS: BP 116/72; PULSE 72; RESP 18; O2SAT 96
== END 2019-01-09 13:25 | disposition home or self-care (01) ==
LOC: INF 11:45
PROVIDERS: Visit Provider Internal Medicine
DX: E83.42 Hypomagnesemia (principal)
CPT/HCPCS: 83735; 96365

== ENCOUNTER 2019-01-17 11:39 | Outpatient (CLI) | payer MEDICAID, SELFPAY ==
[2019-01-17 11:40] VITALS: BMI 38.4
[2019-01-17 12:01] VITALS: BP 107/79; PULSE 75; RESP 18; TEMP 36.6; O2SAT 99
[2019-01-17 12:27] LABS: Magnesium 0.8 mg/dL (1.4-2.2)
[2019-01-17 12:31] VITALS: BP 110/77; PULSE 79; RESP 18; O2SAT 98
[2019-01-17 13:01] VITALS: BP 104/76; PULSE 76; RESP 18; O2SAT 99
[2019-01-17 13:15] VITALS: BP 107/80; PULSE 75; RESP 18; O2SAT 98
== END 2019-01-17 13:40 | disposition home or self-care (01) ==
LOC: INF 11:39
PROVIDERS: Visit Provider Internal Medicine
DX: E83.42 Hypomagnesemia (principal)
CPT/HCPCS: 83735; 96365

== ENCOUNTER → 2019-01-20 11:30 | Outpatient (CLI) | payer MEDICAID, SELFPAY ==
[2019-01-20 12:25] LABS: Anion Gap 18.7 mEq/L (5-15); Blood Urea Nitrogen 44 mg/dL (7-18); Calcium 9.2 mg/dL (8.5-10.1); Carbon Dioxide 19 mmol/L (21.0-32.0); Chloride 104 mmol/L (98-107); Creatinine,Serum 2.06 mg/dL (0.70-1.30); Estimated Glomerular Filt Rate 34 ml/min (>60); GFR (African American) 41 ML/MIN (>60); Glucose 114 mg/dL (74-106); Sodium 135 mmol/L (136-145)
[2019-01-20 13:28] LABS: Potassium 6.7 mmoL/L (3.5-5.1)
== END ==
PROVIDERS: Internal Medicine Cardiovascular Disease; Visit Provider Nurse Practitioner Family
DX: I42.9 Cardiomyopathy, unspecified (principal); I10 Essential (primary) hypertension
CPT/HCPCS: 36415; 80048; 93005

== ENCOUNTER 2019-01-23 11:35 | Outpatient (CLI) | payer MEDICAID, SELFPAY ==
[2019-01-23 11:53] VITALS: BP 106/60; PULSE 78; RESP 18; TEMP 36.6; O2SAT 100
[2019-01-23 12:23] VITALS: BP 110/59; PULSE 79; RESP 18; O2SAT 99
[2019-01-23 12:53] VITALS: BP 109/54; PULSE 76; RESP 18; O2SAT 99
[2019-01-23 13:15] VITALS: BP 107/71; PULSE 74; RESP 18; O2SAT 99
== END 2019-01-23 13:15 | disposition home or self-care (01) ==
LOC: INF 11:36
PROVIDERS: Visit Provider Internal Medicine
DX: E83.42 Hypomagnesemia (principal)
CPT/HCPCS: 96365

== ENCOUNTER 2019-01-30 11:52 | Outpatient (CLI) | payer MEDICAID, SELFPAY ==
[2019-01-30 12:11] VITALS: BP 135/80; PULSE 75; RESP 18; TEMP 36.7; O2SAT 97
[2019-01-30 12:50] VITALS: BP 132/76; PULSE 78; RESP 18; TEMP 36.6; O2SAT 97
[2019-01-30 13:25] VITALS: BP 127/75; PULSE 68; RESP 18; TEMP 36.7; O2SAT 96
== END 2019-01-30 13:25 | disposition home or self-care (01) ==
LOC: INF 11:52
PROVIDERS: Visit Provider Internal Medicine
DX: E83.42 Hypomagnesemia (principal)
CPT/HCPCS: 96365

== ENCOUNTER 2019-02-06 11:45 | Outpatient (CLI) | payer MEDICAID, SELFPAY ==
[2019-02-06 12:01] VITALS: BP 127/94; PULSE 69; RESP 20; TEMP 36.6; O2SAT 98
[2019-02-06 12:31] VITALS: BP 119/89; PULSE 68; RESP 20; O2SAT 98
[2019-02-06 13:13] VITALS: BP 122/84; PULSE 65; RESP 20; O2SAT 97
== END 2019-02-06 13:15 | disposition home or self-care (01) ==
LOC: INF 11:46
PROVIDERS: Visit Provider Internal Medicine
DX: E83.42 Hypomagnesemia (principal)
CPT/HCPCS: 96365

== ENCOUNTER 2019-02-13 11:34 | Outpatient (CLI) | payer MEDICAID, SELFPAY ==
[2019-02-13 11:37] VITALS: BMI 38.4
[2019-02-13 11:54] VITALS: BP 106/54; PULSE 76; RESP 18; TEMP 36.8; O2SAT 98
[2019-02-13 12:04] LABS: Anion Gap 17.1 mEq/L (5-15); Blood Urea Nitrogen 38 mg/dL (7-18); Calcium 8.4 mg/dL (8.5-10.1); Carbon Dioxide 20 mmol/L (21.0-32.0); Chloride 105 mmol/L (98-107); Creatinine Clearance Estimated 90 mL/min (50-200); Estimated Glomerular Filt Rate 46 ml/min (>60); GFR (African American) 55 ML/MIN (>60); Glucose 140 mg/dL (74-106); Magnesium 1.2 mg/dL (1.4-2.2); Potassium 5.1 mmoL/L (3.5-5.1); Sodium 137 mmol/L (136-145)
[2019-02-13 12:24] VITALS: BP 134/70; PULSE 69; RESP 18; TEMP 36.8; O2SAT 98
[2019-02-13 12:54] VITALS: BP 148/55; PULSE 74; RESP 18; TEMP 36.8; O2SAT 99
[2019-02-13 13:10] VITALS: BP 148/55; PULSE 74; RESP 18; TEMP 36.8; O2SAT 98
== END 2019-02-13 13:10 | disposition home or self-care (01) ==
LOC: INF 11:34
PROVIDERS: Visit Provider Internal Medicine
DX: E83.42 Hypomagnesemia (principal)
CPT/HCPCS: 80048; 83735; 96365

== ENCOUNTER → 2019-02-18 11:51 | Outpatient (CLI) | payer MEDICAID, SELFPAY ==
[2019-02-18 12:11] VITALS: BP 144/90; PULSE 93; RESP 18; TEMP 36.8; O2SAT 99; BMI 38.4
[2019-02-18 13:08] VITALS: BP 126/76; PULSE 82; RESP 18; TEMP 36.4; O2SAT 98
== END ==
PROVIDERS: PCP Emergency Medicine; Visit Provider Internal Medicine
DX: E83.42 Hypomagnesemia (principal)
CPT/HCPCS: 96365

== ENCOUNTER 2019-02-27 11:47 | Outpatient (CLI) | payer MEDICAID, SELFPAY ==
[2019-02-27 12:00] VITALS: BP 100/63; PULSE 72; RESP 18; TEMP 36.6; O2SAT 100
[2019-02-27 12:30] VITALS: BP 102/68; PULSE 74; RESP 18; O2SAT 99
[2019-02-27 13:00] VITALS: BP 98/64; PULSE 78; RESP 18; O2SAT 99
[2019-02-27 13:15] VITALS: BP 104/70; PULSE 71; RESP 18; O2SAT 99
== END 2019-02-27 13:15 | disposition home or self-care (01) ==
LOC: INF 11:47
PROVIDERS: Visit Provider Internal Medicine
DX: E83.42 Hypomagnesemia (principal)
CPT/HCPCS: 96365

== ENCOUNTER 2019-03-06 11:40 | Outpatient (CLI) | payer MEDICAID, SELFPAY ==
[2019-03-06 12:15] VITALS: BP 132/76; PULSE 74; RESP 18
[2019-03-06 12:45] VITALS: BP 130/73; PULSE 74; RESP 18
[2019-03-06 13:15] VITALS: BP 123/84; PULSE 74; RESP 18
== END 2019-03-06 13:35 | disposition home or self-care (01) ==
LOC: INF 11:46
PROVIDERS: Visit Provider Internal Medicine
DX: E83.42 Hypomagnesemia (principal)
CPT/HCPCS: 96365

== ENCOUNTER 2019-03-13 11:47 | Outpatient (CLI) | payer MEDICAID, SELFPAY ==
[2019-03-13 11:49] VITALS: BMI 38.4
[2019-03-13 11:55] VITALS: BP 100/84; PULSE 80; RESP 20; TEMP 36.3
--- NOTE | 2019-03-13 12:18 | PC.NURSE ---
1200-per lab patient's magnesium level is 1.0.
[2019-03-13 13:10] VITALS: BP 91/57; PULSE 67; RESP 20; TEMP 36.3
== END 2019-03-13 13:10 | disposition home or self-care (01) ==
LOC: INF 11:47
PROVIDERS: Visit Provider Internal Medicine
DX: E83.42 Hypomagnesemia (principal)
CPT/HCPCS: 83735; 96365

== ENCOUNTER 2019-03-20 11:48 | Outpatient (CLI) | payer MEDICAID, SELFPAY ==
[2019-03-20 11:59] VITALS: BP 135/80; PULSE 80; RESP 18; TEMP 36.2; O2SAT 98
[2019-03-20 12:29] VITALS: BP 130/79; PULSE 79; RESP 18; O2SAT 97
[2019-03-20 12:59] VITALS: BP 129/74; PULSE 76; RESP 18; O2SAT 98
[2019-03-20 13:15] VITALS: BP 131/74; PULSE 77; RESP 18; O2SAT 97
== END 2019-03-20 13:15 | disposition home or self-care (01) ==
LOC: INF 11:48
PROVIDERS: Visit Provider Internal Medicine
DX: E83.42 Hypomagnesemia (principal)
CPT/HCPCS: 96365

== ENCOUNTER 2019-03-28 11:40 | Outpatient (CLI) | payer MEDICAID, SELFPAY ==
[2019-03-28 12:05] VITALS: BP 108/83; PULSE 81; RESP 18; TEMP 36.2; O2SAT 95
[2019-03-28 13:30] VITALS: BP 111/69; PULSE 67; RESP 18; O2SAT 97
== END 2019-03-28 13:20 | disposition home or self-care (01) ==
LOC: INF 11:42
PROVIDERS: Visit Provider Internal Medicine
DX: E83.42 Hypomagnesemia (principal)
CPT/HCPCS: 96365

== ENCOUNTER → 2019-04-03 11:30 | Outpatient (CLI) | payer MEDICAID, SELFPAY ==
[2019-04-03 11:43] VITALS: BP 112/79; PULSE 71; RESP 16; TEMP 36.4; O2SAT 98; BMI 38.4
[2019-04-03 12:59] VITALS: BP 102/60; PULSE 66; RESP 16; TEMP 36.7; O2SAT 95
[2019-04-03 13:08] VITALS: BP 103/70; PULSE 66; RESP 18; TEMP 36.7; O2SAT 97
== END ==
PROVIDERS: Visit Provider Internal Medicine
DX: E83.42 Hypomagnesemia (principal)
CPT/HCPCS: 96365

== ENCOUNTER → 2019-04-10 11:51 | Outpatient (CLI) | payer MEDICAID, SELFPAY ==
[2019-04-10 11:53] VITALS: BMI 38.4
[2019-04-10 12:00] VITALS: BP 121/87; PULSE 78; RESP 20; TEMP 36.5
[2019-04-10 12:36] VITALS: BP 120/77; PULSE 71; RESP 18; TEMP 36.5
[2019-04-10 13:20] VITALS: BP 135/88; PULSE 70; RESP 18
== END ==
PROVIDERS: Visit Provider Internal Medicine
DX: E83.42 Hypomagnesemia (principal)
CPT/HCPCS: 83735; 96365

== ENCOUNTER 2019-04-17 11:45 | Outpatient (CLI) | payer MEDICAID, SELFPAY ==
[2019-04-17 12:10] VITALS: BP 116/78; PULSE 71; RESP 18; TEMP 36.4; O2SAT 98
[2019-04-17 13:25] VITALS: BP 135/73; PULSE 76; RESP 18; TEMP 36.4; O2SAT 99
== END 2019-04-17 13:25 | disposition home or self-care (01) ==
LOC: INF 11:48
PROVIDERS: Visit Provider Internal Medicine
DX: E83.42 Hypomagnesemia (principal)
CPT/HCPCS: 96365

== ENCOUNTER 2019-04-24 11:45 | Outpatient (CLI) | payer MEDICAID, SELFPAY ==
[2019-04-24 12:03] VITALS: BP 122/82; PULSE 72; RESP 18; TEMP 37.1; O2SAT 98
[2019-04-24 13:10] VITALS: BP 111/79; PULSE 71; RESP 18
== END 2019-04-24 13:15 | disposition home or self-care (01) ==
LOC: INF 11:47
PROVIDERS: Visit Provider Internal Medicine
DX: E83.42 Hypomagnesemia (principal)
CPT/HCPCS: 96365

== ENCOUNTER 2019-05-01 11:49 | Outpatient (CLI) | payer MEDICAID, SELFPAY ==
[2019-05-01 11:58] VITALS: BMI 36.9
[2019-05-01 12:09] VITALS: BP 113/77; PULSE 80; RESP 16; TEMP 36.8; O2SAT 98; BMI 38.4
[2019-05-01 12:39] VITALS: BP 116/76; PULSE 76; RESP 18; O2SAT 97
[2019-05-01 12:52] LABS: Magnesium 0.9 mg/dL (1.4-2.2)
[2019-05-01 13:09] VITALS: BP 110/72; PULSE 81; RESP 18; O2SAT 97
[2019-05-01 13:20] VITALS: BP 112/76; PULSE 78; RESP 18; O2SAT 97
== END 2019-05-01 13:20 | disposition home or self-care (01) ==
LOC: INF 11:49
PROVIDERS: Visit Provider Internal Medicine
DX: E83.42 Hypomagnesemia (principal)
CPT/HCPCS: 83735; 96365

== ENCOUNTER 2019-05-08 11:48 | Outpatient (CLI) | payer MEDICAID, SELFPAY ==
[2019-05-08 12:01] VITALS: BP 107/65; PULSE 80; RESP 18; TEMP 36.6; O2SAT 98
[2019-05-08 12:31] VITALS: BP 110/68; PULSE 79; RESP 18; O2SAT 97
[2019-05-08 13:01] VITALS: BP 98/52; PULSE 75; RESP 18; O2SAT 97
[2019-05-08 13:16] VITALS: BP 110/60; PULSE 74; RESP 18; TEMP 36.8; O2SAT 98
== END 2019-05-08 13:16 | disposition home or self-care (01) ==
LOC: INF 11:48
PROVIDERS: Visit Provider Internal Medicine
DX: E83.42 Hypomagnesemia (principal)
CPT/HCPCS: 96365

== ENCOUNTER 2019-05-15 11:55 | Outpatient (CLI) | payer MEDICAID, SELFPAY ==
[2019-05-15 12:39] VITALS: BP 114/65; PULSE 80; RESP 18; TEMP 36.2; O2SAT 97
[2019-05-15 13:09] VITALS: BP 110/69; PULSE 79; RESP 18; O2SAT 98
[2019-05-15 13:40] VITALS: BP 109/65; PULSE 76; RESP 18; O2SAT 98
== END 2019-05-15 13:45 | disposition home or self-care (01) ==
LOC: INF 11:55
PROVIDERS: Visit Provider Internal Medicine
DX: E83.42 Hypomagnesemia (principal)
CPT/HCPCS: 96365

== ENCOUNTER 2019-05-22 12:01 | Outpatient (CLI) | payer MEDICAID, SELFPAY ==
[2019-05-22 12:12] VITALS: BP 135/79; PULSE 88; RESP 18; TEMP 36.6; O2SAT 98
[2019-05-22 12:42] VITALS: BP 131/77; PULSE 84; RESP 18; O2SAT 97
[2019-05-22 13:12] VITALS: BP 140/88; PULSE 85; RESP 18; O2SAT 98
== END 2019-05-22 13:12 | disposition home or self-care (01) ==
LOC: INF 12:01
PROVIDERS: Visit Provider Internal Medicine
DX: E83.42 Hypomagnesemia (principal)
CPT/HCPCS: 96365

== ENCOUNTER 2019-05-29 11:38 | Outpatient (CLI) | payer MEDICAID, SELFPAY ==
[2019-05-29 11:42] VITALS: BMI 38.4
[2019-05-29 12:04] VITALS: BP 126/81; PULSE 80; RESP 18; TEMP 36.6; O2SAT 96
[2019-05-29 12:34] VITALS: BP 118/76; PULSE 74; RESP 18; O2SAT 97
[2019-05-29 13:11] VITALS: BP 121/72; PULSE 78; RESP 18; O2SAT 96
== END 2019-05-29 13:12 | disposition home or self-care (01) ==
LOC: INF 11:38
PROVIDERS: Visit Provider Internal Medicine
DX: E83.42 Hypomagnesemia (principal)
CPT/HCPCS: 83735; 96365

== ENCOUNTER 2019-06-05 11:51 | Outpatient (CLI) | payer MEDICAID, SELFPAY ==
[2019-06-05 12:15] VITALS: BMI 38.4
[2019-06-05 12:21] VITALS: BP 94/66; PULSE 72; RESP 18; TEMP 36.6; O2SAT 97
[2019-06-05 12:40] LABS: Anion Gap 16.5 mEq/L (5-15); Blood Urea Nitrogen 47 mg/dL (7-18); Calcium 8.1 mg/dL (8.5-10.1); Carbon Dioxide 19 mmol/L (21.0-32.0); Chloride 102 mmol/L (98-107); Creatinine Clearance Estimated 46 mL/min (50-200); Creatinine,Serum 3.11 mg/dL (0.70-1.30); Estimated Glomerular Filt Rate 21 ml/min (>60); GFR (African American) 26 ML/MIN (>60); Glucose 106 mg/dL (74-106); Sodium 131 mmol/L (136-145)
[2019-06-05 12:46] LABS: Potassium 6.5 mmoL/L (3.5-5.1)
[2019-06-05 12:51] VITALS: BP 97/52; PULSE 82; RESP 16; TEMP 36.5; O2SAT 96
[2019-06-05 13:21] VITALS: BP 92/55; PULSE 79; RESP 18
[2019-06-05 13:29] LABS: Anion Gap 17.4 mEq/L (5-15); Blood Urea Nitrogen 46 mg/dL (7-18); Carbon Dioxide 19 mmol/L (21.0-32.0); Chloride 102 mmol/L (98-107); Creatinine Clearance Estimated 48 mL/min (50-200); Creatinine,Serum 2.94 mg/dL (0.70-1.30); Estimated Glomerular Filt Rate 23 ml/min (>60); GFR (African American) 27 ML/MIN (>60); Glucose 96 mg/dL (74-106); Sodium 132 mmol/L (136-145)
[2019-06-05 13:33] LABS: Potassium 6.4 mmoL/L (3.5-5.1)
[2019-06-05 13:51] VITALS: BP 99/61; PULSE 69; RESP 18; TEMP 36.6; O2SAT 97
[2019-06-05 14:21] VITALS: BP 96/59; PULSE 78; RESP 16; TEMP 36.6; O2SAT 98
[2019-06-05 14:50] VITALS: BP 99/65; PULSE 72; RESP 18; TEMP 36.6; O2SAT 96
== END 2019-06-05 14:50 | disposition home or self-care (01) ==
LOC: INF 11:51
PROVIDERS: Internal Medicine Cardiovascular Disease; Visit Provider Internal Medicine
DX: E83.42 Hypomagnesemia (principal); E87.5 Hyperkalemia; I10 Essential (primary) hypertension; I25.10 Atherosclerotic heart disease of native coronary artery without angina pectoris
CPT/HCPCS: 36415; 80048; 83735; 96360; 96361; 96365

== ENCOUNTER → 2019-06-06 06:55 | Outpatient (CLI) | payer MEDICAID, SELFPAY ==
[2019-06-06 07:17] LABS: Chloride 104 mmol/L (98-107)
[2019-06-06 07:26] LABS: Anion Gap 14.2 mEq/L (5-15); Blood Urea Nitrogen 39 mg/dL (7-18); Calcium 8.4 mg/dL (8.5-10.1); Carbon Dioxide 23 mmol/L (21.0-32.0); Estimated Glomerular Filt Rate 31 ml/min (>60); GFR (African American) 38 ML/MIN (>60); Glucose 111 mg/dL (74-106); Magnesium 1.5 mg/dL (1.4-2.2); Sodium 135 mmol/L (136-145)
[2019-06-06 07:35] LABS: Potassium 6.2 mmoL/L (3.5-5.1)
== END ==
PROVIDERS: PCP Emergency Medicine; Visit Provider Physician Assistant
DX: E11.69 Type 2 diabetes mellitus with other specified complication (principal); E78.2 Mixed hyperlipidemia; E78.5 Hyperlipidemia, unspecified; E83.42 Hypomagnesemia; E87.5 Hyperkalemia; F17.200 Nicotine dependence, unspecified, uncomplicated; I10 Essential (primary) hypertension; I25.118 Atherosclerotic heart disease of native coronary artery with other forms of angina pectoris; I25.5 Ischemic cardiomyopathy; N18.9 Chronic kidney disease, unspecified; Z79.84 Long term (current) use of oral hypoglycemic drugs
CPT/HCPCS: 36415; 80048; 83735; 84100

== ENCOUNTER → 2019-06-09 13:24 | Outpatient (CLI) | payer MEDICAID, SELFPAY ==
[2019-06-09 14:37] LABS: Hemoglobin A1C 6.3 % (0.0-7.0)
[2019-06-09 14:43] LABS: Alanine Aminotransferase 22 U/L (12-78); Albumin Level 3.6 gm/dL (3.4-5.0); Alkaline Phosphatase 81 U/L (46-116); Anion Gap 18.1 mEq/L (5-15); Aspartate Amino Transferase 14 U/L (15-37); Basophils # 0.1 K/mm3 (0-0.2); Basophils % 0.6 % (0.1-2.0); Bilirubin,Total 0.2 mg/dL (0.2-1.0); Blood Urea Nitrogen 33 mg/dL (7-18); Calcium 9.1 mg/dL (8.5-10.1); Carbon Dioxide 21 mmol/L (21.0-32.0); Chloride 103 mmol/L (98-107); Chol/HDL Ratio 5.6 (1-3.5); Cholesterol 239 mg/dL (140-200); Creatinine,Serum 1.98 mg/dL (0.70-1.30); Eosinophils # 0.2 K/mm3 (0.0-0.4); Eosinophils % 2.4 % (0.1-12.0); Estimated Glomerular Filt Rate 36 ml/min (>60); GFR (African American) 43 ML/MIN (>60); Globulin 3.7 gm/dl (1.3-3.2); Glucose 115 mg/dL (74-106); HDL Cholesterol 43 mg/dL (27-67); Hematocrit 46.7 % (42.0-52.0); Hemoglobin 14.6 g/dL (14.1-18.0); LDL Cholesterol 134 mg/dL (0-130); Lymphocytes % 37.3 % (10-50); Mean Corpuscular HGB Conc 31.3 g/dL (31.8-35.4); Mean Corpuscular Hemoglobin 27.9 pg (27.0-31.2); Mean Corpuscular Volume 89.1 fl (80-94); Mean Platelet Volume 6.9 fl (7.4-10.4); Monocytes # 0.6 K/mm3 (0.1-1.0); Monocytes % 6.7 % (1.7-9.3); Neutrophils # 4.3 K/mm3 (1.8-7.8); Neutrophils % 53.1 % (37.0-80.0); Platelet Count 393 K/mm3 (142-424); Red Blood Count 5.24 M/mm3 (4.60-6.20); Red Cell Distribution Width 14.9 % (11.5-17.5); Sodium 136 mmol/L (136-145); T4 (Thyroxine) 6.9 ug/dl (4.7-13.3); Thyroid Stimulating Hormone 1.48 uIU/ml (0.358-3.740); Total Protein,Serum 7.3 gm/dL (6.4-8.2); Triglycerides 308 mg/dL (30-200); VLDL Cholesterol 62 mg/dL (0-40); White Blood Count 8.1 K/mm3 (4.8-10.8)
[2019-06-09 14:52] LABS: Potassium 6.1 mmoL/L (3.5-5.1)
[2019-06-10 08:13] LABS: Microalbumin, Urine 9.6 ug/mL (Not Estab.)
[2019-06-10 18:02] LABS: Vitamin D 25 Hydroxy 17.3 ng/mL (30.0-100.0)
== END ==
PROVIDERS: Visit Provider Nurse Practitioner Family
DX: E11.9 Type 2 diabetes mellitus without complications (principal); I10 Essential (primary) hypertension; Z79.84 Long term (current) use of oral hypoglycemic drugs; E55.9 Vitamin D deficiency, unspecified
CPT/HCPCS: 80053; 80061; 82043; 82570; 82652; 83036; 84436; 84443; 85025

== ENCOUNTER 2019-06-12 11:40 | Outpatient (CLI) | payer MEDICAID, SELFPAY ==
[2019-06-12 11:48] VITALS: BMI 38.4
[2019-06-12 12:17] LABS: Potassium 4.5 mmoL/L (3.5-5.1)
[2019-06-12 12:20] VITALS: BP 121/77; PULSE 82; RESP 18; O2SAT 97
[2019-06-12 13:43] VITALS: BP 94/54; PULSE 77; RESP 18; TEMP 36.4; O2SAT 96
== END 2019-06-12 13:43 | disposition home or self-care (01) ==
LOC: INF 11:44
PROVIDERS: Nurse Practitioner Family; Visit Provider Internal Medicine
DX: E83.42 Hypomagnesemia (principal)
CPT/HCPCS: 84132; 96365

== ENCOUNTER 2019-06-19 11:41 | Outpatient (CLI) | payer MEDICAID, SELFPAY ==
[2019-06-19 11:44] VITALS: BMI 38.4
[2019-06-19 11:53] VITALS: BP 117/70; PULSE 71; RESP 18
[2019-06-19 12:54] LABS: Anion Gap 17.7 mEq/L (5-15); Blood Urea Nitrogen 28 mg/dL (7-18); Calcium 8.4 mg/dL (8.5-10.1); Carbon Dioxide 21 mmol/L (21.0-32.0); Chloride 104 mmol/L (98-107); Creatinine Clearance Estimated 74 mL/min (50-200); Creatinine,Serum 1.93 mg/dL (0.70-1.30); Estimated Glomerular Filt Rate 37 ml/min (>60); GFR (African American) 44 ML/MIN (>60); Glucose 100 mg/dL (74-106); Potassium 4.7 mmoL/L (3.5-5.1); Sodium 138 mmol/L (136-145)
[2019-06-19 13:20] VITALS: BP 124/79; PULSE 69; RESP 18
[2019-06-19 15:39] LABS: Magnesium 0.9 mg/dL (1.4-2.2)
== END 2019-06-19 13:20 | disposition home or self-care (01) ==
LOC: INF 11:41
PROVIDERS: Emergency Medicine; Visit Provider Internal Medicine
DX: E83.42 Hypomagnesemia (principal); Z86.39 Personal history of other endocrine, nutritional and metabolic disease
CPT/HCPCS: 80048; 83735; 96365

== ENCOUNTER 2019-06-26 11:47 | Outpatient (CLI) | payer MEDICAID, SELFPAY ==
[2019-06-26 11:53] VITALS: BP 114/82; PULSE 87; RESP 18; TEMP 36.6; O2SAT 96
[2019-06-26 12:15] VITALS: BP 122/69; PULSE 82; RESP 18; TEMP 36.6; O2SAT 97
[2019-06-26 12:45] VITALS: BP 118/68; PULSE 79; RESP 20
[2019-06-26 13:05] VITALS: BP 116/74; PULSE 78; RESP 18; TEMP 36.6; O2SAT 97
== END 2019-06-26 13:10 | disposition home or self-care (01) ==
LOC: INF 11:47
PROVIDERS: Visit Provider Internal Medicine
DX: E83.42 Hypomagnesemia (principal)
CPT/HCPCS: 96365

== ENCOUNTER 2019-07-04 11:52 | Outpatient (CLI) | payer MEDICAID, SELFPAY ==
[2019-07-04 12:10] VITALS: BP 127/76; PULSE 67; RESP 18; O2SAT 97
[2019-07-04 13:25] VITALS: BP 104/67; PULSE 70; RESP 18; O2SAT 100
== END 2019-07-04 13:25 | disposition home or self-care (01) ==
LOC: INF 11:52
PROVIDERS: Visit Provider Internal Medicine
DX: E83.42 Hypomagnesemia (principal)
CPT/HCPCS: 96365

== ENCOUNTER → 2019-07-06 12:56 | Outpatient (POV) | payer MEDICAID, SELFPAY | PROVIDERS: Visit Provider Internal Medicine Nephrology | DX: Z00.00 Encounter for general adult medical examination without abnormal findings (principal) ==

== ENCOUNTER 2019-07-10 11:33 | Outpatient (CLI) | payer MEDICAID, SELFPAY ==
[2019-07-10 11:45] VITALS: BP 108/72; PULSE 85; RESP 18; TEMP 36.3; O2SAT 96
[2019-07-10 12:15] VITALS: BP 111/74; PULSE 81; RESP 18; O2SAT 97
[2019-07-10 12:45] VITALS: BP 109/76; PULSE 84; RESP 18; O2SAT 97
[2019-07-10 13:00] VITALS: BP 104/74; PULSE 82; RESP 18; O2SAT 97
== END 2019-07-10 13:00 | disposition home or self-care (01) ==
LOC: INF 11:33
PROVIDERS: Visit Provider Internal Medicine
DX: E83.42 Hypomagnesemia (principal)
CPT/HCPCS: 96365

== ENCOUNTER 2019-07-17 11:54 | Outpatient (CLI) | payer MEDICAID, SELFPAY ==
[2019-07-17 12:02] VITALS: BP 127/87; PULSE 82; RESP 18; TEMP 36.6; O2SAT 95
[2019-07-17 12:30] VITALS: BP 122/74; PULSE 80; RESP 18; TEMP 36.6; O2SAT 96
[2019-07-17 13:00] VITALS: BP 118/68; PULSE 74; RESP 18; TEMP 36.7; O2SAT 97
[2019-07-17 13:30] VITALS: BP 121/74; PULSE 76; RESP 20
[2019-07-17 13:40] VITALS: BP 125/69; PULSE 79; RESP 18; TEMP 36.6; O2SAT 96
== END 2019-07-17 13:45 | disposition home or self-care (01) ==
LOC: INF 11:54
PROVIDERS: Visit Provider Internal Medicine
DX: E83.42 Hypomagnesemia (principal)
CPT/HCPCS: 96365

== ENCOUNTER 2019-07-24 11:41 | Outpatient (CLI) | payer MEDICAID, SELFPAY ==
[2019-07-24 11:47] VITALS: BMI 38.4
[2019-07-24 12:05] VITALS: BP 112/77; PULSE 74; RESP 18; TEMP 36.6; O2SAT 98
[2019-07-24 12:35] VITALS: BP 114/72; PULSE 78; RESP 18; O2SAT 97
[2019-07-24 13:05] VITALS: BP 118/79; PULSE 76; RESP 18; O2SAT 97
[2019-07-24 13:15] VITALS: BP 113/74; PULSE 71; RESP 18; O2SAT 98
== END 2019-07-24 13:15 | disposition home or self-care (01) ==
LOC: INF 11:41
PROVIDERS: Visit Provider Internal Medicine
DX: E83.42 Hypomagnesemia (principal)
CPT/HCPCS: 83735; 96365

== ENCOUNTER 2019-07-31 12:00 | Outpatient (CLI) | payer MEDICAID, SELFPAY ==
[2019-07-31 12:23] VITALS: BP 115/78; PULSE 80; RESP 18; TEMP 36.6; O2SAT 96
[2019-07-31 13:00] VITALS: BP 126/73; PULSE 76; RESP 18; TEMP 36.6; O2SAT 97
[2019-07-31 13:15] VITALS: BP 122/69; PULSE 75; RESP 20
[2019-07-31 13:30] VITALS: BP 116/72; PULSE 74; RESP 18; TEMP 36.6; O2SAT 96
== END 2019-07-31 13:30 | disposition home or self-care (01) ==
LOC: INF 12:00
PROVIDERS: Visit Provider Internal Medicine
DX: E83.42 Hypomagnesemia (principal)
CPT/HCPCS: 96365

== ENCOUNTER 2019-08-07 11:49 | Outpatient (CLI) | payer MEDICAID, SELFPAY ==
[2019-08-07 12:20] VITALS: BP 97/57; PULSE 58; RESP 20; TEMP 36.4; O2SAT 98
[2019-08-07 12:50] VITALS: BP 101/54; PULSE 59; RESP 20; O2SAT 97
[2019-08-07 13:20] VITALS: BP 104/60; PULSE 57; RESP 20; O2SAT 97
[2019-08-07 13:30] VITALS: BP 101/57; PULSE 58; RESP 20; O2SAT 97
== END 2019-08-07 13:30 | disposition home or self-care (01) ==
LOC: INF 11:50
PROVIDERS: Visit Provider Internal Medicine
DX: E83.42 Hypomagnesemia (principal)
CPT/HCPCS: 96365

== ENCOUNTER 2019-08-14 12:06 | Outpatient (CLI) | payer MEDICAID, SELFPAY ==
[2019-08-14 12:26] VITALS: BP 134/71; PULSE 76; RESP 18; TEMP 36.6; O2SAT 98
[2019-08-14 12:50] VITALS: BP 114/56; PULSE 74; RESP 18; TEMP 36.6; O2SAT 98
[2019-08-14 13:20] VITALS: BP 122/68; PULSE 72; RESP 20; TEMP 36.7; O2SAT 97
[2019-08-14 13:40] VITALS: BP 120/69; PULSE 71; RESP 18; TEMP 36.6; O2SAT 98
== END 2019-08-14 13:45 | disposition home or self-care (01) ==
LOC: INF 12:06
PROVIDERS: Visit Provider Internal Medicine
DX: E83.42 Hypomagnesemia (principal)
CPT/HCPCS: 96365

== ENCOUNTER 2019-08-21 11:37 | Outpatient (CLI) | payer MEDICAID, SELFPAY ==
[2019-08-21 11:48] VITALS: BMI 38.4
[2019-08-21 11:55] VITALS: BP 109/79; PULSE 74; RESP 18; TEMP 36.5; O2SAT 98
[2019-08-21 12:09] LABS: Magnesium 0.9 mg/dL (1.4-2.2)
[2019-08-21 13:05] VITALS: BP 124/77; PULSE 72; RESP 18
== END 2019-08-21 13:05 | disposition home or self-care (01) ==
LOC: INF 11:37
PROVIDERS: Visit Provider Internal Medicine
DX: E83.42 Hypomagnesemia (principal)
CPT/HCPCS: 83735; 96365

== ENCOUNTER 2019-08-28 12:03 | Outpatient (CLI) | payer MEDICAID, SELFPAY ==
[2019-08-28 12:28] VITALS: BP 123/72; PULSE 75; RESP 18
[2019-08-28 13:47] VITALS: BP 113/78; PULSE 64; RESP 18
== END 2019-08-28 13:47 | disposition home or self-care (01) ==
LOC: INF 12:03
PROVIDERS: Visit Provider Internal Medicine
DX: E83.42 Hypomagnesemia (principal)
CPT/HCPCS: 96365

== ENCOUNTER 2019-09-04 11:52 | Outpatient (CLI) | payer OTHER, SELFPAY ==
[2019-09-04 12:05] VITALS: BP 131/84; PULSE 78; RESP 18; TEMP 36.5; O2SAT 98
[2019-09-04 12:35] VITALS: BP 129/81; PULSE 74; RESP 18; O2SAT 97
[2019-09-04 13:05] VITALS: BP 136/80; PULSE 75; RESP 18; O2SAT 97
[2019-09-04 13:22] VITALS: BP 140/81; PULSE 72; RESP 18; O2SAT 98
== END 2019-09-04 13:23 | disposition home or self-care (01) ==
LOC: INF 11:52
PROVIDERS: Visit Provider Internal Medicine
DX: E83.42 Hypomagnesemia (principal)
CPT/HCPCS: 96365

== ENCOUNTER 2019-09-11 11:59 | Outpatient (CLI) | payer OTHER, SELFPAY ==
[2019-09-11 12:08] VITALS: BP 148/92; PULSE 86; RESP 18; TEMP 36.6; O2SAT 98
[2019-09-11 12:38] VITALS: BP 141/88; PULSE 84; RESP 18; O2SAT 97
[2019-09-11 13:08] VITALS: BP 133/79; PULSE 81; RESP 18; O2SAT 97
[2019-09-11 13:25] VITALS: BP 135/77; PULSE 82; RESP 18; O2SAT 97
== END 2019-09-11 13:25 | disposition home or self-care (01) ==
LOC: INF 11:59
PROVIDERS: Visit Provider Internal Medicine
DX: E83.42 Hypomagnesemia (principal)
CPT/HCPCS: 96365

== ENCOUNTER 2019-09-18 12:06 | Outpatient (CLI) | payer OTHER, SELFPAY ==
[2019-09-18 13:40] VITALS: BP 121/87; PULSE 68; RESP 18
== END 2019-09-18 13:40 | disposition home or self-care (01) ==
LOC: INF 12:06
PROVIDERS: Visit Provider Physician Assistant
DX: E83.42 Hypomagnesemia (principal)
CPT/HCPCS: 96365

== ENCOUNTER 2019-09-25 12:11 | Outpatient (CLI) | payer OTHER, SELFPAY ==
[2019-09-25 12:30] VITALS: BP 132/76; PULSE 72; RESP 18; TEMP 36.6; O2SAT 97; BMI 40.7
[2019-09-25 13:00] VITALS: BP 125/69; PULSE 75; RESP 18; TEMP 36.6; O2SAT 96
[2019-09-25 13:03] LABS: Anion Gap 14.3 mEq/L (5-15); Blood Urea Nitrogen 33 mg/dL (7-18); Calcium 8.4 mg/dL (8.5-10.1); Carbon Dioxide 22 mmol/L (21.0-32.0); Chloride 100 mmol/L (98-107); Creatinine Clearance Estimated 75 mL/min (50-200); Creatinine,Serum 1.89 mg/dL (0.70-1.30); Estimated Glomerular Filt Rate 37 ml/min (>60); GFR (African American) 45 ML/MIN (>60); Glucose 102 mg/dL (74-106); Potassium 5.3 mmoL/L (3.5-5.1); Sodium 131 mmol/L (136-145)
[2019-09-25 13:04] LABS: Magnesium 0.9 mg/dL (1.4-2.2)
[2019-09-25 13:30] VITALS: BP 138/74; PULSE 72; RESP 16
[2019-09-25 14:00] VITALS: BP 122/68; PULSE 80; RESP 16; TEMP 36.7; O2SAT 97
== END 2019-09-25 14:05 | disposition home or self-care (01) ==
LOC: INF 12:11
PROVIDERS: Visit Provider Physician Assistant
DX: E83.42 Hypomagnesemia (principal)
CPT/HCPCS: 80048; 83735; 96365; 96366

== ENCOUNTER 2019-10-02 12:06 | Outpatient (CLI) | payer OTHER, SELFPAY ==
[2019-10-02 12:09] VITALS: BP 121/81; PULSE 82; RESP 18; TEMP 36.4; O2SAT 100
[2019-10-02 12:25] VITALS: BMI 38.4
[2019-10-02 12:45] VITALS: BP 132/80; PULSE 80; RESP 16; TEMP 36.6; O2SAT 99
[2019-10-02 12:48] LABS: Anion Gap 13.3 mEq/L (5-15); Blood Urea Nitrogen 28 mg/dL (7-18); Calcium 8.9 mg/dL (8.5-10.1); Carbon Dioxide 24 mmol/L (21.0-32.0); Chloride 104 mmol/L (98-107); Creatinine Clearance Estimated 84 mL/min (50-200); Creatinine,Serum 1.69 mg/dL (0.70-1.30); Estimated Glomerular Filt Rate 43 ml/min (>60); GFR (African American) 52 ML/MIN (>60); Glucose 116 mg/dL (74-106); Magnesium 1.1 mg/dL (1.4-2.2); Potassium 5.3 mmoL/L (3.5-5.1); Sodium 136 mmol/L (136-145)
[2019-10-02 13:25] VITALS: BP 129/78; PULSE 79; RESP 18; TEMP 36.7; O2SAT 98
== END 2019-10-02 13:35 | disposition home or self-care (01) ==
LOC: INF 12:07
PROVIDERS: Visit Provider Internal Medicine
DX: E83.42 Hypomagnesemia (principal)
CPT/HCPCS: 80048; 83735; 96365

== ENCOUNTER 2019-10-09 11:49 | Outpatient (CLI) | payer OTHER, SELFPAY ==
[2019-10-09 11:54] VITALS: BMI 38.4
[2019-10-09 12:15] VITALS: BP 131/91; PULSE 84; RESP 18
[2019-10-09 12:17] LABS: Anion Gap 14.9 mEq/L (5-15); Blood Urea Nitrogen 27 mg/dL (7-18); Calcium 8.4 mg/dL (8.5-10.1); Carbon Dioxide 23 mmol/L (21.0-32.0); Chloride 103 mmol/L (98-107); Creatinine Clearance Estimated 87 mL/min (50-200); Creatinine,Serum 1.64 mg/dL (0.70-1.30); Estimated Glomerular Filt Rate 44 ml/min (>60); GFR (African American) 53 ML/MIN (>60); Glucose 108 mg/dL (74-106); Magnesium 1.1 mg/dL (1.4-2.2); Potassium 4.9 mmoL/L (3.5-5.1); Sodium 136 mmol/L (136-145)
[2019-10-09 13:30] VITALS: BP 132/83; PULSE 80; RESP 18
== END 2019-10-09 13:30 | disposition home or self-care (01) ==
LOC: INF 11:49
PROVIDERS: Visit Provider Physician Assistant
DX: E83.42 Hypomagnesemia (principal)
CPT/HCPCS: 80048; 83735; 96365

== ENCOUNTER 2019-10-16 12:17 | Outpatient (CLI) | payer OTHER, SELFPAY ==
[2019-10-16 12:33] VITALS: BMI 38.4
[2019-10-16 12:36] VITALS: BP 120/80; PULSE 81; RESP 18; O2SAT 95
[2019-10-16 12:55] LABS: Anion Gap 17.1 mEq/L (5-15); Blood Urea Nitrogen 31 mg/dL (7-18); Calcium 8.2 mg/dL (8.5-10.1); Carbon Dioxide 22 mmol/L (21.0-32.0); Chloride 103 mmol/L (98-107); Creatinine Clearance Estimated 76 mL/min (50-200); Creatinine,Serum 1.88 mg/dL (0.70-1.30); Estimated Glomerular Filt Rate 38 ml/min (>60); GFR (African American) 46 ML/MIN (>60); Glucose 123 mg/dL (74-106); Potassium 5.1 mmoL/L (3.5-5.1); Sodium 137 mmol/L (136-145)
[2019-10-16 13:55] VITALS: BP 100/66; PULSE 71; RESP 18
== END 2019-10-16 13:55 | disposition home or self-care (01) ==
LOC: INF 12:17
PROVIDERS: Visit Provider Internal Medicine
DX: E83.42 Hypomagnesemia (principal)
CPT/HCPCS: 80048; 83735; 96365

== ENCOUNTER 2019-10-30 12:03 | Outpatient (CLI) | payer OTHER, SELFPAY ==
[2019-10-30 12:07] VITALS: BMI 38.7
[2019-10-30 12:25] VITALS: BP 108/59; PULSE 70; RESP 16; TEMP 36.6; O2SAT 98
[2019-10-30 12:50] VITALS: BP 106/54; PULSE 69; RESP 18; TEMP 36.6
[2019-10-30 13:11] LABS: Anion Gap 21.5 mEq/L (5-15); Blood Urea Nitrogen 26 mg/dL (7-18); Calcium 8.1 mg/dL (8.5-10.1); Carbon Dioxide 18 mmol/L (21.0-32.0); Chloride 101 mmol/L (98-107); Creatinine Clearance Estimated 89 mL/min (50-200); Creatinine,Serum 1.61 mg/dL (0.70-1.30); Estimated Glomerular Filt Rate 45 ml/min (>60); GFR (African American) 55 ML/MIN (>60); Glucose 144 mg/dL (74-106); Potassium 4.5 mmoL/L (3.5-5.1); Sodium 136 mmol/L (136-145)
[2019-10-30 13:13] LABS: Magnesium 0.9 mg/dL (1.4-2.2)
[2019-10-30 13:15] VITALS: BP 114/68; PULSE 72; RESP 18; TEMP 36.6; O2SAT 97
[2019-10-30 13:35] VITALS: BP 112/72; PULSE 75; TEMP 36.7; O2SAT 97
== END 2019-10-30 13:35 | disposition home or self-care (01) ==
LOC: INF 12:03
PROVIDERS: Visit Provider Physician Assistant
DX: E83.42 Hypomagnesemia (principal)
CPT/HCPCS: 80048; 83735; 96365

== ENCOUNTER 2019-11-06 12:09 | Outpatient (CLI) | payer OTHER, SELFPAY ==
[2019-11-06 12:09] VITALS: BMI 38.9
[2019-11-06 12:27] VITALS: BP 128/75; PULSE 77; RESP 20; TEMP 36.6; O2SAT 98
[2019-11-06 12:33] LABS: Anion Gap 17.9 mEq/L (5-15); Blood Urea Nitrogen 29 mg/dL (7-18); Calcium 8.3 mg/dL (8.5-10.1); Carbon Dioxide 18 mmol/L (21.0-32.0); Chloride 101 mmol/L (98-107); Creatinine Clearance Estimated 88 mL/min (50-200); Creatinine,Serum 1.64 mg/dL (0.70-1.30); Estimated Glomerular Filt Rate 44 ml/min (>60); GFR (African American) 53 ML/MIN (>60); Glucose 128 mg/dL (74-106); Magnesium 1.1 mg/dL (1.4-2.2); Potassium 4.9 mmoL/L (3.5-5.1); Sodium 132 mmol/L (136-145)
[2019-11-06 12:57] VITALS: BP 125/79; PULSE 79; RESP 20; O2SAT 99
[2019-11-06 13:27] VITALS: BP 118/74; PULSE 74; RESP 20; O2SAT 97
[2019-11-06 13:45] VITALS: BP 128/73; PULSE 72; RESP 20; O2SAT 97
== END 2019-11-06 13:45 | disposition home or self-care (01) ==
LOC: INF 12:09
PROVIDERS: Visit Provider Physician Assistant
DX: E83.42 Hypomagnesemia (principal)
CPT/HCPCS: 80048; 83735; 96365

== ENCOUNTER 2019-11-13 12:07 | Outpatient (CLI) | payer OTHER, SELFPAY ==
[2019-11-13 12:09] VITALS: BMI 38.9
[2019-11-13 12:23] VITALS: BP 114/77; PULSE 78; RESP 18; TEMP 36.6; O2SAT 97
[2019-11-13 12:53] LABS: Anion Gap 15.2 mEq/L (5-15); Blood Urea Nitrogen 29 mg/dL (7-18); Calcium 8.4 mg/dL (8.5-10.1); Carbon Dioxide 21 mmol/L (21.0-32.0); Chloride 101 mmol/L (98-107); Creatinine Clearance Estimated 88 mL/min (50-200); Creatinine,Serum 1.64 mg/dL (0.70-1.30); Estimated Glomerular Filt Rate 44 ml/min (>60); GFR (African American) 53 ML/MIN (>60); Glucose 172 mg/dL (74-106); Magnesium 1.1 mg/dL (1.4-2.2); Potassium 5.2 mmoL/L (3.5-5.1); Sodium 132 mmol/L (136-145)
[2019-11-13 12:55] VITALS: BP 117/71; PULSE 72; RESP 18; TEMP 36.6; O2SAT 96
[2019-11-13 13:20] VITALS: BP 124/75; PULSE 72; RESP 18; TEMP 36.6; O2SAT 97
[2019-11-13 13:40] VITALS: BP 133/70; PULSE 76; RESP 16; TEMP 36.6; O2SAT 97
== END 2019-11-13 13:40 | disposition home or self-care (01) ==
LOC: INF 12:07
PROVIDERS: Visit Provider Internal Medicine
DX: E83.42 Hypomagnesemia (principal)
CPT/HCPCS: 80048; 83735; 96365

== ENCOUNTER 2019-11-20 12:04 | Outpatient (CLI) | payer OTHER, SELFPAY ==
[2019-11-20 12:06] VITALS: BMI 39.1
[2019-11-20 12:22] VITALS: BP 119/79; PULSE 78; RESP 18; TEMP 36.6; O2SAT 97
[2019-11-20 12:40] VITALS: BP 126/72; PULSE 74; RESP 18; TEMP 36.6; O2SAT 96
[2019-11-20 12:45] LABS: Blood Urea Nitrogen 28 mg/dL (7-18); Carbon Dioxide 22 mmol/L (21.0-32.0); Chloride 103 mmol/L (98-107); Creatinine Clearance Estimated 96 mL/min (50-200); Creatinine,Serum 1.51 mg/dL (0.70-1.30); Estimated Glomerular Filt Rate 49 ml/min (>60); GFR (African American) 59 ML/MIN (>60); Glucose 123 mg/dL (74-106); Sodium 135 mmol/L (136-145)
[2019-11-20 12:47] LABS: Magnesium 0.9 mg/dL (1.4-2.2)
[2019-11-20 13:10] VITALS: BP 116/78; PULSE 78; RESP 16; TEMP 36.6; O2SAT 97
[2019-11-20 13:40] VITALS: BP 123/74; PULSE 72; RESP 18; TEMP 36.6; O2SAT 96
== END 2019-11-20 13:40 | disposition home or self-care (01) ==
LOC: INF 12:04
PROVIDERS: Visit Provider Physician Assistant
DX: E83.42 Hypomagnesemia (principal)
CPT/HCPCS: 80048; 83735; 96365

== ENCOUNTER 2019-11-27 12:07 | Outpatient (CLI) | payer OTHER, SELFPAY ==
[2019-11-27 12:08] VITALS: BMI 38.9
[2019-11-27 12:21] VITALS: BP 128/72; PULSE 78; RESP 18; O2SAT 97
[2019-11-27 12:29] LABS: Anion Gap 17.1 mEq/L (5-15); Blood Urea Nitrogen 31 mg/dL (7-18); Calcium 8.1 mg/dL (8.5-10.1); Carbon Dioxide 20 mmol/L (21.0-32.0); Chloride 105 mmol/L (98-107); Creatinine Clearance Estimated 90 mL/min (50-200); Creatinine,Serum 1.61 mg/dL (0.70-1.30); Estimated Glomerular Filt Rate 45 ml/min (>60); GFR (African American) 55 ML/MIN (>60); Glucose 112 mg/dL (74-106); Potassium 5.1 mmoL/L (3.5-5.1); Sodium 137 mmol/L (136-145)
[2019-11-27 12:30] LABS: Magnesium 0.9 mg/dL (1.4-2.2)
[2019-11-27 13:40] VITALS: BP 118/69; PULSE 69; RESP 18; O2SAT 97
== END 2019-11-27 13:40 | disposition home or self-care (01) ==
LOC: INF 12:07
PROVIDERS: Visit Provider Physician Assistant
DX: E83.42 Hypomagnesemia (principal)
CPT/HCPCS: 80048; 83735; 96365

== ENCOUNTER 2019-12-11 12:02 | Outpatient (CLI) | payer OTHER, SELFPAY ==
[2019-12-11 12:07] VITALS: BP 143/84; PULSE 80; RESP 18; TEMP 36.6; O2SAT 95
[2019-12-11 12:35] VITALS: BP 135/76; PULSE 79; RESP 18; TEMP 36.6; O2SAT 96
[2019-12-11 13:00] VITALS: BP 139/82; PULSE 78; RESP 16
[2019-12-11 13:06] VITALS: BMI 38.9
[2019-12-11 13:15] VITALS: BP 140/80; PULSE 82; RESP 18; TEMP 36.7; O2SAT 95
[2019-12-11 13:21] LABS: Anion Gap 17.5 mEq/L (5-15); Blood Urea Nitrogen 23 mg/dL (7-18); Calcium 8.3 mg/dL (8.5-10.1); Carbon Dioxide 21 mmol/L (21.0-32.0); Chloride 104 mmol/L (98-107); Creatinine Clearance Estimated 114 mL/min (50-200); Creatinine,Serum 1.27 mg/dL (0.70-1.30); Estimated Glomerular Filt Rate 59 ml/min (>60); GFR (African American) 72 ML/MIN (>60); Glucose 158 mg/dL (74-106); Potassium 4.5 mmoL/L (3.5-5.1); Sodium 138 mmol/L (137-145)
== END 2019-12-11 13:20 | disposition home or self-care (01) ==
LOC: INF 12:02
PROVIDERS: Visit Provider Internal Medicine
DX: E83.42 Hypomagnesemia (principal)
CPT/HCPCS: 80048; 83735; 96365

== ENCOUNTER 2019-12-18 11:38 | Outpatient (CLI) | payer OTHER, SELFPAY ==
[2019-12-18 11:51] VITALS: BMI 38.9
[2019-12-18 12:00] VITALS: BP 138/94; PULSE 81; RESP 18; TEMP 36.6; O2SAT 97
[2019-12-18 12:18] LABS: Anion Gap 14.2 mEq/L (5-15); Blood Urea Nitrogen 31 mg/dL (7-18); Calcium 8.4 mg/dL (8.5-10.1); Carbon Dioxide 25 mmol/L (21.0-32.0); Chloride 105 mmol/L (98-107); Creatinine Clearance Estimated 78 mL/min (50-200); Creatinine,Serum 1.85 mg/dL (0.70-1.30); Estimated Glomerular Filt Rate 38 ml/min (>60); GFR (African American) 47 ML/MIN (>60); Glucose 125 mg/dL (74-106); Magnesium 1.2 mg/dL (1.4-2.2); Potassium 5.2 mmoL/L (3.5-5.1); Sodium 139 mmol/L (137-145)
[2019-12-18 12:30] VITALS: BP 133/90; PULSE 85; RESP 18; O2SAT 98
[2019-12-18 13:00] VITALS: BP 122/87; PULSE 80; RESP 18; O2SAT 97
[2019-12-18 13:21] VITALS: BP 116/72; PULSE 71; RESP 18; O2SAT 98
== END 2019-12-18 13:25 | disposition home or self-care (01) ==
LOC: INF 11:38
PROVIDERS: Visit Provider Physician Assistant
DX: E83.42 Hypomagnesemia (principal)
CPT/HCPCS: 80048; 83735; 96365

== ENCOUNTER → 2019-12-20 15:13 | Outpatient (CLI) | payer OTHER, SELFPAY ==
--- NOTE | 2019-12-20 15:15 | CA_ITS ---
APPROVED REPORT Bilateral Lower Extremity Venous Study for DVT. Clinical Dietitian: AMBER Indications Lower Extremity Pain: Right Lower Extremity Edema: Right sweling and pain RLE Risk Factors Prior Phlebitis/DVT Vein Imaging CFV (R): compressive, spontaneous, phasic, augmentation SFJ (R): compressive, spontaneous, phasic, augmentation FEM (R): compressive, spontaneous, phasic, augmentation POP (R): compressive, spontaneous, phasic, augmentation PTV (R): Compressible GSV (R): Compressible Peroneals (R):Compressible GAS (R): Compressible Findings No evidence of DVT or superficial thrombophlebitis in the veins scanned of the right lower extremity. Conclusion No evidence of DVT or superficial thrombophlebitis in the veins scanned of the right lower extremity. Electronically signed by : Gabe Downing, 12/21/2019 12:18:32
== END ==
PROVIDERS: PCP Emergency Medicine; Visit Provider Nurse Practitioner Family
DX: M79.604 Pain in right leg (principal); R60.0 Localized edema; Z86.718 Personal history of other venous thrombosis and embolism
CPT/HCPCS: 93971

== ENCOUNTER 2019-12-26 11:51 | Outpatient (CLI) | payer OTHER, SELFPAY ==
[2019-12-26 11:55] VITALS: BMI 38.9
[2019-12-26 12:11] LABS: Chloride 104 mmol/L (98-107); Potassium 5.2 mmoL/L (3.5-5.1); Sodium 134 mmol/L (136-145)
[2019-12-26 12:14] LABS: Anion Gap 16.2 mEq/L (5-15); Blood Urea Nitrogen 38 mg/dl (9-20); Carbon Dioxide 19 mmol/L (22.0-30.0); Creatinine Clearance Estimated 85 mL/min (50-200); Estimated Glomerular Filt Rate 42 ml/min (>60); GFR (African American) 51 ML/MIN (>60); Magnesium 1.1 mg/dl (1.6-2.3)
[2019-12-26 12:20] VITALS: BP 110/71; PULSE 71; RESP 20; TEMP 36.9; O2SAT 95
[2019-12-26 12:20] LABS: Calcium 9.3 mg/dl (8.4-10.2)
[2019-12-26 12:30] LABS: Glucose 153 mg/dl (74-100)
[2019-12-26 12:55] VITALS: BP 108/72; PULSE 68; RESP 20; TEMP 36.9; O2SAT 95
[2019-12-26 13:30] VITALS: BP 111/72; PULSE 68; RESP 20; TEMP 36.9; O2SAT 95
== END 2019-12-26 13:30 | disposition home or self-care (01) ==
LOC: INF 11:51
PROVIDERS: Visit Provider Physician Assistant
DX: E83.42 Hypomagnesemia (principal)
CPT/HCPCS: 80048; 83735; 96365

== ENCOUNTER 2020-01-01 12:12 | Outpatient (CLI) | payer OTHER, SELFPAY ==
[2020-01-01 12:13] VITALS: BMI 39.9
[2020-01-01 12:16] VITALS: BP 113/74; PULSE 82; RESP 18; TEMP 36.6; O2SAT 96
[2020-01-01 12:30] LABS: Chloride 106 mmol/L (98-107)
[2020-01-01 12:31] LABS: Potassium 5.4 mmoL/L (3.5-5.1); Sodium 136 mmol/L (136-145)
[2020-01-01 12:34] LABS: Anion Gap 14.4 mEq/L (5-15); Blood Urea Nitrogen 30 mg/dl (9-20); Calcium 8.7 mg/dl (8.4-10.2); Carbon Dioxide 21 mmol/L (22.0-30.0); Creatinine Clearance Estimated 92 mL/min (50-200); Estimated Glomerular Filt Rate 45 ml/min (>60); GFR (African American) 55 ML/MIN (>60); Glucose 135 mg/dl (74-100); Magnesium 1.1 mg/dl (1.6-2.3)
[2020-01-01 13:35] VITALS: BP 115/71; PULSE 75; RESP 18
== END 2020-01-01 13:35 | disposition home or self-care (01) ==
LOC: INF 12:12
PROVIDERS: Visit Provider Physician Assistant
DX: E83.42 Hypomagnesemia (principal)
CPT/HCPCS: 80048; 83735; 96365

== ENCOUNTER 2020-01-08 11:42 | Outpatient (CLI) | payer OTHER, SELFPAY ==
[2020-01-08 11:52] VITALS: BP 132/76; PULSE 81; RESP 18; TEMP 36.4; O2SAT 97
[2020-01-08 11:57] VITALS: BMI 39.9
[2020-01-08 12:18] LABS: Anion Gap 11.1 mEq/L (5-15); Blood Urea Nitrogen 33 mg/dl (9-20); Calcium 8.9 mg/dl (8.4-10.2); Carbon Dioxide 25 mmol/L (22.0-30.0); Chloride 104 mmol/L (98-107); Creatinine Clearance Estimated 92 mL/min (50-200); Estimated Glomerular Filt Rate 45 ml/min (>60); GFR (African American) 55 ML/MIN (>60); Glucose 126 mg/dl (74-100); Potassium 5.1 mmoL/L (3.5-5.1); Sodium 135 mmol/L (136-145)
[2020-01-08 12:19] LABS: Magnesium 0.9 mg/dl (1.6-2.3)
[2020-01-08 12:20] VITALS: BP 126/72; PULSE 78; RESP 18; TEMP 36.6; O2SAT 98
[2020-01-08 13:05] VITALS: BP 118/69; PULSE 74; RESP 16; TEMP 36.6; O2SAT 98
== END 2020-01-08 13:10 | disposition home or self-care (01) ==
LOC: INF 11:42
PROVIDERS: Visit Provider Physician Assistant
DX: E83.42 Hypomagnesemia (principal)
CPT/HCPCS: 80048; 83735; 96365; 96366

== ENCOUNTER → 2020-01-12 12:05 | Outpatient (CLI) | payer OTHER, SELFPAY ==
[2020-01-12 15:13] LABS: Basophils % 0.4 % (0.1-2.0); Eosinophils # 0.2 K/mm3 (0.0-0.4); Eosinophils % 2.2 % (0.1-12.0); Hematocrit 42.3 % (42.0-52.0); Hemoglobin 13.5 g/dL (14.1-18.0); Lymphocytes # 2.7 K/mm3 (0.7-4.5); Lymphocytes % 34.4 % (10-50); Mean Corpuscular Hemoglobin 28.6 pg (27.0-31.2); Mean Corpuscular Volume 89.3 fl (80-94); Mean Platelet Volume 7.8 fl (7.4-10.4); Monocytes # 0.5 K/mm3 (0.1-1.0); Monocytes % 6.4 % (1.7-9.3); Neutrophils # 4.4 K/mm3 (1.8-7.8); Neutrophils % 56.7 % (37.0-80.0); Platelet Count 297 K/mm3 (142-424); Red Blood Count 4.73 M/mm3 (4.60-6.20); Red Cell Distribution Width 14.8 % (11.5-17.5); White Blood Count 7.7 K/mm3 (4.8-10.8)
[2020-01-12 16:04] LABS: Anion Gap 14.6 mEq/L (5-15); Blood Urea Nitrogen 32 mg/dl (9-20); Calcium 9.6 mg/dl (8.4-10.2); Carbon Dioxide 22 mmol/L (22.0-30.0); Chloride 105 mmol/L (98-107); Estimated Glomerular Filt Rate 49 ml/min (>60); GFR (African American) 59 ML/MIN (>60); Glucose 95 mg/dl (74-100); Potassium 5.6 mmoL/L (3.5-5.1); Sodium 136 mmol/L (136-145)
== END ==
PROVIDERS: Visit Provider Surgery
DX: L05.91 Pilonidal cyst without abscess (principal)
CPT/HCPCS: 36415; 80048; 85025

== ENCOUNTER 2020-01-17 12:56 | Outpatient (CLI) | payer OTHER, SELFPAY | END 2020-01-17 13:30 | disposition home or self-care (01) | LOC: INF 12:56 | PROVIDERS: Visit Provider Surgery | DX: L05.91 Pilonidal cyst without abscess (principal) | CPT/HCPCS: G0463 ==

== ENCOUNTER 2020-01-18 13:05 | Outpatient (CLI) | payer OTHER, SELFPAY | END 2020-01-18 13:30 | disposition home or self-care (01) | LOC: INF 13:05 | PROVIDERS: Visit Provider Surgery | DX: L05.91 Pilonidal cyst without abscess (principal); Z48.00 Encounter for change or removal of nonsurgical wound dressing | CPT/HCPCS: G0463 ==

== ENCOUNTER 2020-01-19 12:52 | Outpatient (CLI) | payer OTHER, SELFPAY ==
[2020-01-19 13:10] VITALS: BP 127/79; PULSE 84; RESP 18; TEMP 36.6; O2SAT 96
== END 2020-01-19 13:10 | disposition home or self-care (01) ==
LOC: INF 12:52
PROVIDERS: Visit Provider Surgery
DX: Z48.00 Encounter for change or removal of nonsurgical wound dressing; L05.91 Pilonidal cyst without abscess
CPT/HCPCS: G0463

== ENCOUNTER → 2020-01-20 12:06 | Outpatient (CLI) | payer OTHER, SELFPAY | PROVIDERS: PCP Emergency Medicine; Visit Provider Surgery | DX: L05.91 Pilonidal cyst without abscess (principal); Z48.00 Encounter for change or removal of nonsurgical wound dressing | CPT/HCPCS: G0463 ==

== ENCOUNTER → 2020-01-21 12:07 | Outpatient (CLI) | payer OTHER, SELFPAY | PROVIDERS: PCP Emergency Medicine; Visit Provider Surgery | DX: L05.91 Pilonidal cyst without abscess (principal); Z48.00 Encounter for change or removal of nonsurgical wound dressing | CPT/HCPCS: G0463 ==

== ENCOUNTER 2020-01-22 12:33 | Outpatient (CLI) | payer OTHER, SELFPAY ==
[2020-01-22 12:40] VITALS: BP 90/53; PULSE 68; RESP 20; TEMP 36.9; O2SAT 95; BMI 39.7
[2020-01-22 13:19] LABS: Chloride 102 mmol/L (98-107); Potassium 5.5 mmoL/L (3.5-5.1); Sodium 136 mmol/L (136-145)
[2020-01-22 13:22] LABS: Anion Gap 17.5 mEq/L (5-15); Blood Urea Nitrogen 25 mg/dl (9-20); Calcium 9.6 mg/dl (8.4-10.2); Carbon Dioxide 22 mmol/L (22.0-30.0); Creatinine Clearance Estimated 78 mL/min (50-200); Estimated Glomerular Filt Rate 37 ml/min (>60); GFR (African American) 45 ML/MIN (>60); Glucose 113 mg/dl (74-100)
[2020-01-22 13:23] LABS: Magnesium 1.4 mg/dl (1.6-2.3)
[2020-01-22 13:45] VITALS: BP 112/74; PULSE 68; RESP 20; TEMP 36.9
== END 2020-01-22 13:55 | disposition home or self-care (01) ==
LOC: INF 12:34
PROVIDERS: Visit Provider Internal Medicine
DX: E83.42 Hypomagnesemia (principal)
CPT/HCPCS: 80048; 83735; 96365; G0463

== ENCOUNTER 2020-01-23 13:12 | Outpatient (CLI) | payer OTHER, SELFPAY | END 2020-01-23 13:35 | disposition home or self-care (01) | LOC: INF 13:12 | PROVIDERS: Visit Provider Surgery | DX: L05.91 Pilonidal cyst without abscess (principal); Z48.00 Encounter for change or removal of nonsurgical wound dressing | CPT/HCPCS: G0463 ==

== ENCOUNTER 2020-01-24 10:51 | Outpatient (CLI) | payer OTHER, SELFPAY | END 2020-01-24 11:30 | disposition home or self-care (01) | LOC: INF 10:51 | PROVIDERS: Visit Provider Surgery | DX: L05.91 Pilonidal cyst without abscess (principal); Z48.00 Encounter for change or removal of nonsurgical wound dressing | CPT/HCPCS: G0463 ==

== ENCOUNTER 2020-01-25 13:51 | Outpatient (CLI) | payer OTHER, SELFPAY | END 2020-01-25 14:18 | disposition home or self-care (01) | LOC: INF 13:51 | PROVIDERS: Visit Provider Surgery | DX: L05.91 Pilonidal cyst without abscess (principal); Z48.00 Encounter for change or removal of nonsurgical wound dressing | CPT/HCPCS: G0463 ==

== ENCOUNTER 2020-01-27 12:45 | Outpatient (CLI) | payer OTHER, SELFPAY ==
[2020-01-27 13:10] VITALS: RESP 22
[2020-01-27 13:27] VITALS: RESP 22
--- NOTE | 2020-01-27 14:30 | PC.NURSE ---
pt had dressing change to mid gluteal cleft for cyst. pt tolerated well.
== END 2020-01-27 13:15 | disposition home or self-care (01) ==
LOC: INF 12:46
PROVIDERS: PCP Emergency Medicine; Visit Provider Surgery
DX: L05.91 Pilonidal cyst without abscess (principal); Z48.00 Encounter for change or removal of nonsurgical wound dressing
CPT/HCPCS: G0463

== ENCOUNTER 2020-01-28 12:24 | Outpatient (CLI) | payer OTHER, SELFPAY | END 2020-01-28 13:10 | disposition home or self-care (01) | LOC: INF 12:25 | PROVIDERS: PCP Emergency Medicine; Visit Provider Surgery | DX: L05.91 Pilonidal cyst without abscess (principal); Z48.00 Encounter for change or removal of nonsurgical wound dressing | CPT/HCPCS: G0463 ==

== ENCOUNTER 2020-01-29 12:13 | Outpatient (CLI) | payer OTHER, SELFPAY ==
[2020-01-29 12:27] VITALS: BMI 38.9
[2020-01-29 12:36] VITALS: BP 124/76; PULSE 76; RESP 20; O2SAT 97
[2020-01-29 12:45] LABS: Chloride 107 mmol/L (98-107); Potassium 4.8 mmoL/L (3.5-5.1); Sodium 136 mmol/L (136-145)
[2020-01-29 12:48] LABS: Anion Gap 17.8 mEq/L (5-15); Blood Urea Nitrogen 22 mg/dl (9-20); Calcium 8.8 mg/dl (8.4-10.2); Carbon Dioxide 16 mmol/L (22.0-30.0); Creatinine Clearance Estimated 90 mL/min (50-200); Estimated Glomerular Filt Rate 45 ml/min (>60); GFR (African American) 55 ML/MIN (>60); Glucose 143 mg/dl (74-100)
[2020-01-29 12:49] LABS: Magnesium 0.9 mg/dl (1.6-2.3)
[2020-01-29 14:00] VITALS: BP 136/83; PULSE 72; RESP 20; O2SAT 97
== END 2020-01-29 14:00 | disposition home or self-care (01) ==
LOC: INF 12:13
PROVIDERS: Visit Provider Physician Assistant
DX: E83.42 Hypomagnesemia (principal); L05.91 Pilonidal cyst without abscess; Z48.00 Encounter for change or removal of nonsurgical wound dressing
CPT/HCPCS: 80048; 83735; 96365; G0463

== ENCOUNTER 2020-01-30 12:09 | Outpatient (CLI) | payer OTHER, SELFPAY ==
[2020-01-30 12:30] VITALS: BP 122/74; PULSE 68; RESP 20; TEMP 36.9; O2SAT 95
== END 2020-01-30 12:35 | disposition home or self-care (01) ==
LOC: INF 12:10
PROVIDERS: Visit Provider Surgery
DX: L05.91 Pilonidal cyst without abscess (principal); Z48.00 Encounter for change or removal of nonsurgical wound dressing
CPT/HCPCS: G0463

== ENCOUNTER 2020-01-31 11:53 | Outpatient (CLI) | payer OTHER, SELFPAY | END 2020-01-31 12:05 | disposition home or self-care (01) | LOC: INF 11:53 | PROVIDERS: Visit Provider Surgery | DX: L05.91 Pilonidal cyst without abscess (principal); Z48.00 Encounter for change or removal of nonsurgical wound dressing | CPT/HCPCS: G0463 ==

== ENCOUNTER 2020-02-01 12:20 | Outpatient (CLI) | payer OTHER, SELFPAY | END 2020-02-01 12:30 | disposition home or self-care (01) | LOC: INF 12:20 | PROVIDERS: Visit Provider Surgery | DX: L05.91 Pilonidal cyst without abscess (principal); Z48.00 Encounter for change or removal of nonsurgical wound dressing | CPT/HCPCS: G0463 ==

== ENCOUNTER 2020-02-02 11:40 | Outpatient (CLI) | payer OTHER, SELFPAY | END 2020-02-02 12:15 | disposition home or self-care (01) | LOC: INF 11:50 | PROVIDERS: Visit Provider Surgery | DX: L05.91 Pilonidal cyst without abscess (principal); Z48.00 Encounter for change or removal of nonsurgical wound dressing | CPT/HCPCS: G0463 ==

== ENCOUNTER → 2020-02-03 12:19 | Outpatient (CLI) | payer OTHER, SELFPAY ==
[2020-02-03 12:40] VITALS: BP 147/96; PULSE 78; RESP 18; TEMP 36.8; O2SAT 95; BMI 39.9
== END ==
PROVIDERS: PCP Emergency Medicine; Visit Provider Surgery
DX: L05.91 Pilonidal cyst without abscess (principal); Z48.00 Encounter for change or removal of nonsurgical wound dressing
CPT/HCPCS: G0463

== ENCOUNTER → 2020-02-04 12:20 | Outpatient (CLI) | payer OTHER, SELFPAY | LOC: OUTP 12:22 → INF 12:52 | PROVIDERS: PCP Emergency Medicine; Visit Provider Emergency Medicine | DX: L05.91 Pilonidal cyst without abscess (principal); Z48.00 Encounter for change or removal of nonsurgical wound dressing | CPT/HCPCS: G0463 ==

== ENCOUNTER 2020-02-06 12:08 | Outpatient (CLI) | payer OTHER, SELFPAY ==
[2020-02-06 12:20] VITALS: BMI 39.9
[2020-02-06 12:33] VITALS: BP 147/91; PULSE 97; RESP 18; TEMP 36.4; O2SAT 97
[2020-02-06 12:41] LABS: Chloride 105 mmol/L (98-107); Sodium 135 mmol/L (136-145)
[2020-02-06 12:44] LABS: Blood Urea Nitrogen 19 mg/dl (9-20); Calcium 10.1 mg/dl (8.4-10.2); Carbon Dioxide 22 mmol/L (22.0-30.0); Creatinine Clearance Estimated 106 mL/min (50-200); Estimated Glomerular Filt Rate 53 ml/min (>60); GFR (African American) 64 ML/MIN (>60); Glucose 141 mg/dl (74-100)
[2020-02-06 13:03] VITALS: BP 141/87; PULSE 92; RESP 18; O2SAT 97
[2020-02-06 13:35] VITALS: BP 135/91; PULSE 92; RESP 18; O2SAT 97
== END 2020-02-06 13:35 | disposition home or self-care (01) ==
LOC: INF 12:08
PROVIDERS: Internal Medicine; Visit Provider Surgery
DX: L05.91 Pilonidal cyst without abscess (principal); Z48.00 Encounter for change or removal of nonsurgical wound dressing; E83.42 Hypomagnesemia
CPT/HCPCS: 80048; 83735; 96365; G0463

== ENCOUNTER 2020-02-07 11:39 | Outpatient (CLI) | payer OTHER, SELFPAY | END 2020-02-07 11:50 | disposition home or self-care (01) | LOC: INF 11:39 | PROVIDERS: Visit Provider Surgery | DX: L05.91 Pilonidal cyst without abscess (principal); Z48.01 Encounter for change or removal of surgical wound dressing | CPT/HCPCS: G0463 ==

== ENCOUNTER 2020-02-08 12:14 | Outpatient (CLI) | payer OTHER, SELFPAY | END 2020-02-08 12:35 | disposition home or self-care (01) | LOC: INF 12:15 | PROVIDERS: Visit Provider Surgery | DX: L05.01 Pilonidal cyst with abscess (principal); Z48.01 Encounter for change or removal of surgical wound dressing | CPT/HCPCS: G0463 ==

== ENCOUNTER 2020-02-09 12:35 | Outpatient (CLI) | payer OTHER, SELFPAY ==
--- NOTE | 2020-02-09 15:41 | PC.NURSE ---
PT GETTING ONCE DAILY WOUND CARE; AREA IS ALMOST COMPLETELY CLOSED FAR PACKING; CURRENTLY JUST ABLE TO LAY A TINY AMOUNT OF PACKING IN THE WOUND; COVERED WITH 4X4 AND TAPE; WE WILL RE EVALUATE WEDNESDAY
== END 2020-02-09 12:40 | disposition home or self-care (01) ==
LOC: INF 12:42
PROVIDERS: Visit Provider Surgery
DX: L05.01 Pilonidal cyst with abscess (principal); Z48.00 Encounter for change or removal of nonsurgical wound dressing
CPT/HCPCS: G0463

== ENCOUNTER 2020-02-11 12:07 | Outpatient (CLI) | payer OTHER, SELFPAY ==
[2020-02-11 12:15] VITALS: BP 129/77; PULSE 90; RESP 19; TEMP 36.7; O2SAT 98
== END 2020-02-11 12:26 | disposition home or self-care (01) ==
LOC: INF 12:07
PROVIDERS: PCP Emergency Medicine; Visit Provider Surgery
DX: L05.01 Pilonidal cyst with abscess (principal); Z48.01 Encounter for change or removal of surgical wound dressing
CPT/HCPCS: G0463

== ENCOUNTER 2020-02-12 12:55 | Outpatient (CLI) | payer OTHER, SELFPAY ==
[2020-02-12 12:55] VITALS: BP 96/52; PULSE 68; RESP 20; TEMP 36.9; O2SAT 95
[2020-02-12 13:17] VITALS: BMI 39.9
[2020-02-12 13:26] LABS: Chloride 105 mmol/L (98-107)
[2020-02-12 13:27] LABS: Potassium 4.9 mmoL/L (3.5-5.1); Sodium 134 mmol/L (136-145)
[2020-02-12 13:30] LABS: Anion Gap 14.9 mEq/L (5-15); Blood Urea Nitrogen 24 mg/dl (9-20); Calcium 8.7 mg/dl (8.4-10.2); Carbon Dioxide 19 mmol/L (22.0-30.0); Creatinine Clearance Estimated 99 mL/min (50-200); Estimated Glomerular Filt Rate 49 ml/min (>60); GFR (African American) 59 ML/MIN (>60); Glucose 169 mg/dl (74-100); Magnesium 1.1 mg/dl (1.6-2.3)
[2020-02-12 13:55] VITALS: BP 102/74; PULSE 68; RESP 20; TEMP 36.9; O2SAT 95
== END 2020-02-12 14:00 | disposition home or self-care (01) ==
LOC: INF 12:55
PROVIDERS: Physician Assistant; Visit Provider Surgery
DX: L05.01 Pilonidal cyst with abscess (principal); Z48.01 Encounter for change or removal of surgical wound dressing
CPT/HCPCS: 80048; 83735; 96365; G0463

== ENCOUNTER 2020-02-26 12:13 | Outpatient (CLI) | payer OTHER, SELFPAY ==
[2020-02-26 12:14] VITALS: BMI 39.9
[2020-02-26 12:30] VITALS: BP 115/75; PULSE 82; RESP 18; TEMP 36.2; O2SAT 97
[2020-02-26 12:54] LABS: Chloride 104 mmol/L (98-107)
[2020-02-26 12:55] LABS: Potassium 4.2 mmoL/L (3.5-5.1); Sodium 136 mmol/L (136-145)
[2020-02-26 12:57] LABS: Blood Urea Nitrogen 18 mg/dl (9-20); Creatinine Clearance Estimated 123 mL/min (50-200); Estimated Glomerular Filt Rate 63 ml/min (>60); GFR (African American) 77 ML/MIN (>60)
[2020-02-26 12:58] LABS: Anion Gap 16.2 mEq/L (5-15); Carbon Dioxide 20 mmol/L (22.0-30.0); Glucose 172 mg/dl (74-100)
[2020-02-26 13:00] VITALS: BP 111/72; PULSE 88; RESP 18; O2SAT 98
[2020-02-26 13:30] VITALS: BP 114/70; PULSE 84; RESP 18; O2SAT 97
[2020-02-26 13:52] VITALS: BP 111/65; PULSE 74; RESP 18; O2SAT 98
== END 2020-02-26 13:53 | disposition home or self-care (01) ==
LOC: INF 12:13
PROVIDERS: Visit Provider Physician Assistant
DX: E83.42 Hypomagnesemia (principal)
CPT/HCPCS: 80048; 83735; 96365

== ENCOUNTER 2020-03-04 12:10 | Outpatient (CLI) | payer OTHER, SELFPAY ==
[2020-03-04 12:14] VITALS: BMI 39.9
[2020-03-04 12:40] VITALS: BP 135/74; PULSE 68; RESP 20; TEMP 36.9; O2SAT 95
[2020-03-04 12:44] LABS: Chloride 106 mmol/L (98-107); Potassium 4.6 mmoL/L (3.5-5.1); Sodium 134 mmol/L (136-145)
[2020-03-04 12:46] LABS: Blood Urea Nitrogen 26 mg/dl (9-20); Creatinine Clearance Estimated 123 mL/min (50-200)
[2020-03-04 12:47] LABS: Anion Gap 14.6 mEq/L (5-15); Calcium 8.8 mg/dl (8.4-10.2); Carbon Dioxide 18 mmol/L (22.0-30.0); Estimated Glomerular Filt Rate 63 ml/min (>60); GFR (African American) 77 ML/MIN (>60); Glucose 163 mg/dl (74-100); Magnesium 1.1 mg/dl (1.6-2.3)
[2020-03-04 13:40] VITALS: BP 122/74; PULSE 68; RESP 20; TEMP 36.9; O2SAT 95
== END 2020-03-04 13:45 | disposition home or self-care (01) ==
LOC: INF 12:17
PROVIDERS: Visit Provider Physician Assistant
DX: E83.42 Hypomagnesemia (principal)
CPT/HCPCS: 80048; 83735; 96365

== ENCOUNTER 2020-03-18 12:13 | Outpatient (CLI) | payer OTHER, SELFPAY ==
[2020-03-18 12:15] VITALS: BMI 39.9
[2020-03-18 12:25] VITALS: BP 114/73; PULSE 77; RESP 18; O2SAT 95
[2020-03-18 12:35] LABS: Chloride 103 mmol/L (98-107)
[2020-03-18 12:36] LABS: Potassium 4.2 mmoL/L (3.5-5.1); Sodium 133 mmol/L (136-145)
[2020-03-18 12:38] LABS: Blood Urea Nitrogen 27 mg/dl (9-20); Creatinine Clearance Estimated 114 mL/min (50-200); Estimated Glomerular Filt Rate 58 ml/min (>60); GFR (African American) 70 ML/MIN (>60)
[2020-03-18 12:39] LABS: Anion Gap 14.2 mEq/L (5-15); Calcium 7.9 mg/dl (8.4-10.2); Carbon Dioxide 20 mmol/L (22.0-30.0); Glucose 200 mg/dl (74-100)
[2020-03-18 12:46] LABS: Magnesium 0.8 mg/dl (1.6-2.3)
== END 2020-03-18 13:45 | disposition home or self-care (01) ==
LOC: INF 12:13
PROVIDERS: Visit Provider Physician Assistant
DX: E83.42 Hypomagnesemia (principal)
CPT/HCPCS: 80048; 83735; 96365

== ENCOUNTER 2020-04-01 12:52 | Outpatient (CLI) | payer OTHER, SELFPAY ==
[2020-04-01 12:52] VITALS: BMI 39.9
[2020-04-01 13:10] VITALS: BP 113/61; PULSE 68; RESP 20; TEMP 36.9; O2SAT 95
[2020-04-01 13:48] LABS: Anion Gap 14.5 mEq/L (5-15); Blood Urea Nitrogen 30 mg/dl (9-20); Calcium 8.6 mg/dl (8.4-10.2); Carbon Dioxide 23 mmol/L (22.0-30.0); Chloride 99 mmol/L (98-107); Creatinine Clearance Estimated 91 mL/min (50-200); Estimated Glomerular Filt Rate 45 ml/min (>60); GFR (African American) 55 ML/MIN (>60); Glucose 144 mg/dl (74-100); Potassium 4.5 mmoL/L (3.5-5.1); Sodium 132 mmol/L (136-145)
[2020-04-01 13:50] LABS: Magnesium 0.9 mg/dl (1.6-2.3)
[2020-04-01 14:15] VITALS: BP 112/62; PULSE 68; RESP 20; TEMP 36.9; O2SAT 95
== END 2020-04-01 14:10 | disposition home or self-care (01) ==
LOC: INF 12:52
PROVIDERS: Visit Provider Physician Assistant
DX: E83.42 Hypomagnesemia (principal)
CPT/HCPCS: 80048; 83735; 96365

== ENCOUNTER 2020-04-15 12:32 | Outpatient (CLI) | payer OTHER, SELFPAY ==
[2020-04-15 12:33] VITALS: BMI 39.9
[2020-04-15 12:52] VITALS: BP 119/68; PULSE 84; RESP 18; O2SAT 95
[2020-04-15 13:01] LABS: Chloride 101 mmol/L (98-107); Potassium 4.6 mmoL/L (3.5-5.1); Sodium 132 mmol/L (136-145)
[2020-04-15 13:04] LABS: Anion Gap 14.6 mEq/L (5-15); Blood Urea Nitrogen 29 mg/dl (9-20); Calcium 8.7 mg/dl (8.4-10.2); Carbon Dioxide 21 mmol/L (22.0-30.0); Creatinine Clearance Estimated 91 mL/min (50-200); Estimated Glomerular Filt Rate 45 ml/min (>60); GFR (African American) 55 ML/MIN (>60); Glucose 170 mg/dl (74-100)
[2020-04-15 13:13] LABS: Magnesium 0.9 mg/dl (1.6-2.3)
[2020-04-15 14:10] VITALS: BP 119/71; PULSE 77; RESP 18
== END 2020-04-15 14:10 | disposition home or self-care (01) ==
LOC: INF 12:32
PROVIDERS: Visit Provider Physician Assistant
DX: E83.42 Hypomagnesemia (principal)
CPT/HCPCS: 80048; 83735; 96365

== ENCOUNTER 2020-04-22 12:22 | Outpatient (CLI) | payer OTHER, SELFPAY ==
[2020-04-22 12:34] VITALS: BMI 39.9
[2020-04-22 12:37] VITALS: BP 137/76; PULSE 83; RESP 18; TEMP 36.4; O2SAT 96
[2020-04-22 12:50] LABS: Chloride 102 mmol/L (98-107); Potassium 4.8 mmoL/L (3.5-5.1); Sodium 133 mmol/L (136-145)
[2020-04-22 12:53] LABS: Anion Gap 13.8 mEq/L (5-15); Blood Urea Nitrogen 29 mg/dl (9-20); Calcium 8.2 mg/dl (8.4-10.2); Carbon Dioxide 22 mmol/L (22.0-30.0); Creatinine Clearance Estimated 98 mL/min (50-200); Estimated Glomerular Filt Rate 49 ml/min (>60); GFR (African American) 59 ML/MIN (>60); Glucose 168 mg/dl (74-100)
[2020-04-22 12:54] LABS: Magnesium 0.9 mg/dl (1.6-2.3)
--- NOTE | 2020-04-22 12:58 | PC.NURSE ---
's office notified Mag 0.9. Pt is currently receiving Mag 2 gram IV as routine weekly infusion. Mag level drawn prior to initiation of Magnesium infusion.
[2020-04-22 13:15] VITALS: BP 130/79; PULSE 81; RESP 18; TEMP 36.6; O2SAT 97
[2020-04-22 13:40] VITALS: BP 124/73; PULSE 78; RESP 16; TEMP 36.6; O2SAT 97
== END 2020-04-22 13:40 | disposition home or self-care (01) ==
LOC: INF 12:22
PROVIDERS: Visit Provider Physician Assistant
DX: E83.42 Hypomagnesemia (principal)
CPT/HCPCS: 80048; 83735; 96365

== ENCOUNTER 2020-04-29 11:58 | Outpatient (CLI) | payer OTHER, SELFPAY ==
[2020-04-29 12:09] VITALS: BMI 39.9
[2020-04-29 12:22] VITALS: BP 130/66; PULSE 72; RESP 18; TEMP 36.7; O2SAT 96
[2020-04-29 12:42] LABS: Chloride 101 mmol/L (98-107); Potassium 4.6 mmoL/L (3.5-5.1); Sodium 133 mmol/L (136-145)
[2020-04-29 12:45] LABS: Anion Gap 13.6 mEq/L (5-15); Blood Urea Nitrogen 25 mg/dl (9-20); Calcium 8.7 mg/dl (8.4-10.2); Carbon Dioxide 23 mmol/L (22.0-30.0); Creatinine Clearance Estimated 104 mL/min (50-200); Estimated Glomerular Filt Rate 53 ml/min (>60); GFR (African American) 64 ML/MIN (>60); Glucose 164 mg/dl (74-100); Magnesium 1.1 mg/dl (1.6-2.3)
[2020-04-29 13:00] VITALS: BP 132/75; PULSE 69; RESP 18; TEMP 36.7; O2SAT 97
[2020-04-29 13:30] VITALS: BP 126/74; PULSE 74; RESP 16; TEMP 36.7; O2SAT 97
== END 2020-04-29 13:35 | disposition home or self-care (01) ==
LOC: INF 11:58
PROVIDERS: Visit Provider Physician Assistant
DX: E83.42 Hypomagnesemia (principal)
CPT/HCPCS: 80048; 83735; 96365

== ENCOUNTER 2020-05-13 12:31 | Outpatient (CLI) | payer OTHER, SELFPAY ==
[2020-05-13 12:40] VITALS: BMI 39.9
[2020-05-13 12:45] VITALS: BP 108/55; PULSE 54; RESP 18; O2SAT 95
[2020-05-13 13:04] LABS: Chloride 99 mmol/L (98-107); Potassium 5.1 mmoL/L (3.5-5.1); Sodium 134 mmol/L (136-145)
[2020-05-13 13:06] LABS: Blood Urea Nitrogen 29 mg/dl (9-20); Creatinine Clearance Estimated 98 mL/min (50-200); Estimated Glomerular Filt Rate 49 ml/min (>60); GFR (African American) 59 ML/MIN (>60)
[2020-05-13 13:07] LABS: Anion Gap 19.1 mEq/L (5-15); Calcium 10.1 mg/dl (8.4-10.2); Carbon Dioxide 21 mmol/L (22.0-30.0); Glucose 182 mg/dl (74-100)
[2020-05-13 13:09] LABS: Magnesium 0.9 mg/dl (1.6-2.3)
[2020-05-13 14:03] VITALS: BP 109/78; PULSE 84; RESP 18; O2SAT 93
== END 2020-05-13 14:03 | disposition home or self-care (01) ==
LOC: INF 12:31
PROVIDERS: Visit Provider Physician Assistant
DX: E83.42 Hypomagnesemia (principal)
CPT/HCPCS: 80048; 83735; 96365

== ENCOUNTER 2020-05-27 12:15 | Outpatient (CLI) | payer OTHER, SELFPAY ==
[2020-05-27 12:25] VITALS: BP 137/91; PULSE 74; RESP 18; TEMP 36.7; O2SAT 97
[2020-05-27 12:27] VITALS: BMI 39.9
[2020-05-27 12:42] LABS: Chloride 100 mmol/L (98-107); Sodium 135 mmol/L (136-145)
[2020-05-27 12:43] LABS: Potassium 4.8 mmoL/L (3.5-5.1)
[2020-05-27 12:45] LABS: Anion Gap 12.8 mEq/L (5-15); Blood Urea Nitrogen 19 mg/dl (9-20); Carbon Dioxide 27 mmol/L (22.0-30.0); Creatinine Clearance Estimated 113 mL/min (50-200); Estimated Glomerular Filt Rate 58 ml/min (>60); GFR (African American) 70 ML/MIN (>60)
[2020-05-27 12:46] LABS: Calcium 8.7 mg/dl (8.4-10.2); Glucose 131 mg/dl (74-100)
[2020-05-27 12:49] LABS: Magnesium 0.9 mg/dl (1.6-2.3)
[2020-05-27 12:50] VITALS: BP 132/82; PULSE 85; RESP 16; O2SAT 96
[2020-05-27 13:30] VITALS: BP 125/79; PULSE 82; RESP 16; TEMP 36.6; O2SAT 97
== END 2020-05-27 13:30 | disposition home or self-care (01) ==
LOC: INF 12:15
PROVIDERS: Visit Provider Physician Assistant
DX: E83.42 Hypomagnesemia (principal)
CPT/HCPCS: 80048; 83735; 96365

== ENCOUNTER 2020-06-10 12:36 | Outpatient (CLI) | payer OTHER, SELFPAY ==
[2020-06-10 12:36] VITALS: BMI 39.9
[2020-06-10 12:58] VITALS: BP 118/77; PULSE 79; RESP 18; TEMP 36.6; O2SAT 97
[2020-06-10 13:16] LABS: Chloride 104 mmol/L (98-107); Potassium 5.5 mmoL/L (3.5-5.1); Sodium 135 mmol/L (136-145)
[2020-06-10 13:19] LABS: Anion Gap 11.5 mEq/L (5-15); Blood Urea Nitrogen 27 mg/dl (9-20); Calcium 8.7 mg/dl (8.4-10.2); Carbon Dioxide 25 mmol/L (22.0-30.0); Creatinine Clearance Estimated 104 mL/min (50-200); Estimated Glomerular Filt Rate 53 ml/min (>60); GFR (African American) 64 ML/MIN (>60); Glucose 155 mg/dl (74-100)
[2020-06-10 13:25] VITALS: BP 108/64; PULSE 75; RESP 16; O2SAT 96
[2020-06-10 13:33] LABS: Magnesium 0.8 mg/dl (1.6-2.3)
[2020-06-10 14:00] VITALS: BP 112/69; PULSE 80; RESP 18; TEMP 36.7; O2SAT 97
== END 2020-06-10 14:05 | disposition home or self-care (01) ==
LOC: INF 12:36
PROVIDERS: Visit Provider Physician Assistant
DX: E83.42 Hypomagnesemia (principal)
CPT/HCPCS: 80048; 83735; 96365

== ENCOUNTER 2020-06-24 12:08 | Outpatient (CLI) | payer OTHER, SELFPAY ==
[2020-06-24 12:08] VITALS: BMI 40.4
[2020-06-24 12:23] VITALS: BP 131/91; PULSE 73; RESP 18; TEMP 36.6; O2SAT 96
[2020-06-24 12:38] LABS: Chloride 105 mmol/L (98-107); Potassium 4.5 mmoL/L (3.5-5.1); Sodium 137 mmol/L (136-145)
[2020-06-24 12:41] LABS: Anion Gap 15.5 mEq/L (5-15); Blood Urea Nitrogen 20 mg/dl (9-20); Carbon Dioxide 21 mmol/L (22.0-30.0); Creatinine Clearance Estimated 106 mL/min (50-200); Estimated Glomerular Filt Rate 53 ml/min (>60); GFR (African American) 64 ML/MIN (>60)
[2020-06-24 12:42] LABS: Calcium 8.3 mg/dl (8.4-10.2); Glucose 126 mg/dl (74-100)
[2020-06-24 12:43] LABS: Magnesium 0.8 mg/dl (1.6-2.3)
[2020-06-24 12:55] VITALS: BP 134/82; PULSE 72; RESP 18; O2SAT 97
[2020-06-24 13:35] VITALS: BP 119/75; PULSE 69; RESP 16; TEMP 36.6; O2SAT 96
== END 2020-06-24 13:45 | disposition home or self-care (01) ==
LOC: INF 12:08
PROVIDERS: Visit Provider Physician Assistant
DX: E83.42 Hypomagnesemia (principal)
CPT/HCPCS: 80048; 83735; 96365

== ENCOUNTER 2020-07-15 12:28 | Outpatient (CLI) | payer OTHER, SELFPAY ==
[2020-07-15 12:35] VITALS: BMI 40.4
[2020-07-15 12:57] VITALS: BP 129/81; PULSE 83; RESP 18; TEMP 36.7; O2SAT 95
[2020-07-15 12:59] LABS: Chloride 103 mmol/L (98-107)
[2020-07-15 13:00] LABS: Potassium 4.5 mmoL/L (3.5-5.1); Sodium 137 mmol/L (136-145)
[2020-07-15 13:02] LABS: Blood Urea Nitrogen 21 mg/dl (9-20); Creatinine Clearance Estimated 99 mL/min (50-200); Estimated Glomerular Filt Rate 49 ml/min (>60); GFR (African American) 59 ML/MIN (>60)
[2020-07-15 13:03] LABS: Calcium 8.3 mg/dl (8.4-10.2); Glucose 179 mg/dl (74-100)
[2020-07-15 13:25] VITALS: BP 113/74; PULSE 78; RESP 18; O2SAT 96
[2020-07-15 13:42] LABS: Anion Gap 15.5 mEq/L (5-15); Carbon Dioxide 23 mmol/L (22.0-30.0)
[2020-07-15 14:10] VITALS: BP 118/69; PULSE 76; RESP 16; TEMP 36.6; O2SAT 96
[2020-07-15 14:20] LABS: Magnesium 0.8 mg/dl (1.6-2.3)
== END 2020-07-15 14:10 | disposition home or self-care (01) ==
LOC: INF 12:28
PROVIDERS: Visit Provider Physician Assistant
DX: E83.42 Hypomagnesemia (principal)
CPT/HCPCS: 80048; 83735; 96365

== ENCOUNTER → 2020-07-22 13:48 | Outpatient (CLI) | payer OTHER, SELFPAY ==
--- NOTE | 2020-07-22 13:53 | XR_ITS ---
PROCEDURE: XR FOOT WT BEARING RT 3V CLINICAL INDICATION: Right Foot Swelling COMPARISON: CR FTR3 FOOT-RT-3 VIEWS from 10/20/2013 CR FTR3 FOOT-RT-3 VIEWS from 06/17/2017 CR FTL3 FOOT-LT-3 VIEWS from 06/17/2017 FINDINGS: No fracture or dislocation. No lytic or blastic change. There is normal mineralization. The joint spaces are well-preserved. No significant degenerative/arthritic changes. No erosive changes evident. Other findings:Clips are present along the medial aspect of the foot at the calcaneal region medial to the calcaneus. There is a small calcaneal spur and a mildly prominent posterior talar process. Bony hypertrophic changes are present at the neck of the talus at the tibial talar joint space similar to 06/17/2017. There is some mild hypertrophy of the distal aspect of the tibia. IMPRESSION: Degenerative changes at the ankle. Mildly prominent posterior talar process Dictated by: Mathew Helton MD 07/22/2020 17:10 Mathew Helton MD in [place] 07/22/2020 17:10
== END ==
PROVIDERS: PCP Emergency Medicine; Visit Provider Podiatrist
DX: E11.8 Type 2 diabetes mellitus with unspecified complications (principal); Z79.84 Long term (current) use of oral hypoglycemic drugs
CPT/HCPCS: 73630

== ENCOUNTER 2020-08-12 12:31 | Outpatient (CLI) | payer OTHER, SELFPAY ==
[2020-08-12 12:36] VITALS: BMI 40.4
[2020-08-12 12:51] VITALS: BP 137/101; PULSE 93; RESP 18; TEMP 36.4; O2SAT 96
[2020-08-12 12:56] LABS: Chloride 105 mmol/L (98-107); Potassium 4.3 mmoL/L (3.5-5.1); Sodium 136 mmol/L (136-145)
[2020-08-12 12:59] LABS: Anion Gap 13.3 mEq/L (5-15); Blood Urea Nitrogen 18 mg/dl (9-20); Calcium 8.6 mg/dl (8.4-10.2); Carbon Dioxide 22 mmol/L (22.0-30.0); Creatinine Clearance Estimated 114 mL/min (50-200); Estimated Glomerular Filt Rate 58 ml/min (>60); GFR (African American) 70 ML/MIN (>60); Glucose 187 mg/dl (74-100)
[2020-08-12 13:00] LABS: Magnesium 1.1 mg/dl (1.6-2.3)
[2020-08-12 13:21] VITALS: BP 128/94; PULSE 90; RESP 18; O2SAT 97
[2020-08-12 13:51] VITALS: BP 121/89; PULSE 91; RESP 18; O2SAT 96
[2020-08-12 14:10] VITALS: BP 120/91; PULSE 89; RESP 18; O2SAT 96
== END 2020-08-12 14:10 | disposition home or self-care (01) ==
LOC: INF 12:31
PROVIDERS: Visit Provider Physician Assistant
DX: E83.42 Hypomagnesemia (principal)
CPT/HCPCS: 80048; 83735; 96365

== ENCOUNTER 2020-08-26 13:05 | Outpatient (CLI) | payer OTHER, SELFPAY ==
[2020-08-26 13:07] VITALS: BMI 40.6
[2020-08-26 13:41] LABS: Chloride 105 mmol/L (98-107); Potassium 4.7 mmoL/L (3.5-5.1); Sodium 136 mmol/L (136-145)
[2020-08-26 13:44] LABS: Anion Gap 14.7 mEq/L (5-15); Blood Urea Nitrogen 24 mg/dl (9-20); Calcium 8.2 mg/dl (8.4-10.2); Carbon Dioxide 21 mmol/L (22.0-30.0); Creatinine Clearance Estimated 115 mL/min (50-200); Estimated Glomerular Filt Rate 58 ml/min (>60); GFR (African American) 70 ML/MIN (>60); Glucose 219 mg/dl (74-100)
[2020-08-26 13:47] VITALS: BP 127/68; PULSE 78; RESP 18; TEMP 36.8; O2SAT 95
[2020-08-26 14:05] LABS: Magnesium 0.9 mg/dl (1.6-2.3)
[2020-08-26 14:15] VITALS: BP 132/76; PULSE 72; RESP 18
[2020-08-26 14:50] VITALS: BP 129/69; PULSE 74; RESP 16; TEMP 36.7; O2SAT 95
== END 2020-08-26 14:55 | disposition home or self-care (01) ==
LOC: INF 13:05
PROVIDERS: Visit Provider Physician Assistant
DX: E83.42 Hypomagnesemia (principal)
CPT/HCPCS: 80048; 83735; 96365

== ENCOUNTER → 2020-09-13 09:55 | Outpatient (CLI) | payer OTHER, SELFPAY ==
[2020-09-14 14:31] LABS: Covid-19 Nasal PCR Sendout Lex NOT DETECTED
== END ==
PROVIDERS: PCP Emergency Medicine; Visit Provider Nurse Practitioner Family
DX: Z01.818 Encounter for other preprocedural examination (principal)
CPT/HCPCS: U0004

== ENCOUNTER → 2020-09-18 10:54 | Outpatient (CLI) | payer OTHER, SELFPAY | PROVIDERS: PCP Emergency Medicine; Visit Provider Nurse Practitioner Family | DX: J44.9 Chronic obstructive pulmonary disease, unspecified (principal) ==

== ENCOUNTER → 2020-09-23 07:23 | Outpatient (CLI) | payer OTHER, SELFPAY ==
--- NOTE | 2020-09-23 | CA_ITS ---
APPROVED REPORT Exam: Pharmacologic Technologist: Krystal Kemp, Ht: 5 ft 9 in Wt: 289 lbs BSA: 2.42 m2 HR: 73 bpm BP: 168/94 mmHg Medical History Medications: Furosemide (LASIX),,,,, Aspirin,,,,, SyMBICORT,,,,, Albuterol,,,,, BisOPROLOL,,,,, Clotrimazole,,,,, FamATIDINE,,,,, LevothROXINE,,,,, AtrovASTATIN,,,,, BenzOlnatate,,,,, CHlochicine,,,,, Stress Test Details Test: LEXISCAN HR Resting HR: 72 bpm Max Heart Rate (APMHR): 166 bpm Max HR Achieved: 98 bpm Target HR (85% APMHR): 141 bpm % of APMHR: 59 Recovery HR: 81 bpm BP Resting BP: 168/94 mmHg Max BP: 196/106 mmHg Recovery BP: 169.0/92.0 mmHg ECG Resting ECG: Sinus Rhythm with PVC Clinical Exercise duration: 04:02 min Highest Stage Achieved: Stress ECG Conclusion Lexiscan portion completed. Pt c/o shortness of breath and dry heaves during peak infusion. Symptoms: No chest pain, (+) SOB (+) dry heaves during peak infusion, resolved in recovery. Arrhythmias/Ectopy: Occ PVC. Occ PAC. ST-T Changes: Less than 1.5mm ST depression. Images to follow. Test Summary REST 09:40 . . 72 . 168/ 94 . . Stage 1 . . . . . . . Myoview Injected Stage 1 01:00 . . 86 . . . . Stage 2 01:00 . . 86 . 172/ 97 . . Stage 3 01:00 . . 85 . 157/ 91 . . Stage 4 01:00 . . 93 . . . . Stage 4 01:02 . . 93 . . . Stop exercise at 04:02 RECOVERY 01:00 . . 90 . . . . RECOVERY 02:00 . . 86 . 196/106 . . RECOVERY 03:00 . . 82 . 164/ 95 . . RECOVERY 04:00 . . 80 . 164/ 95 . . RECOVERY 05:00 . . 80 . 169/ 92 . . RECOVERY 05:22 . . 79 . 169/ 92 . . Electronically signed by : Mingo García, 09/24/2020 08:56:00
--- NOTE | 2020-09-23 07:24 | NM_ITS ---
APPROVED REPORT Exam: Nuclear Stress Test Indication: Chest pain, CAD, SOB, Fatigue, Abnormal EKG, HTN, DM, High cholesterol, Tobacco use, Family history Patient Location: Outpatient Stress Tech: Nubia Chinonkson NM Tech:Rosalinda Blanco, ARRT, RT (R)(N) Ht: 5 ft 9 in Wt: 290 lbs HR: 73 bpm BP: 168/94 mmHg BSA: 2.42 m2 BMI: 42.8 History: Chest pain, CAD, SOB, Fatigue, Abnormal EKG, HTN, DM, High cholesterol, Tobacco use, Family history Procedure: Patient received a 0.4 mg of intravenous Lexiscan, resting heart rate 73 bpm, resting blood pressure 168/94 mmHg, with Lexiscan maximum heart rate achived was 88 bpm which is 85 % of the maximum predicted heart rate and blood pressure was 172/97 mmHg. With Lexiscan, patient denied any complaint of chest pain. Cardiac Stress and Resting SPECT Images: Cardiac Stress and Resting SPECT images were obtained using technetium 99m Myoview 31.5 mCi stress and 10.34 mCi at rest. the ejection fraction is low at 47%. There is global hypokinesia with dyskinesia of the inferior wall. There is a large fixed defect within the inferolateral wall. No reversible defects are evident. Conclusion: Low ejection fraction of 47% with global hypokinesia and inferior dyskinesia Fixed defect within the inferolateral wall consistent with an area of infarction. No reversible defects evident Electronically signed by : Mathew Helton MD 09/25/2020 16:46:38
--- NOTE | 2020-09-23 09:14 | HMH.ITSHM ---
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 []NITRO METFORMIN HYDROXYZINE GUAIFENESIN FUROSEMIDE FAMOTIDINE COLCHICINE CLOPIDOGREL BUDESONIDE BISOPROLOL BENZONATATE ATORVASTATIN ALBUTEROL PANTOPRAZOLE LEVOTHYROXINE VITMAIN D2 LOTRIMIN VITMAIN D3 ASA
== END ==
PROVIDERS: PCP Emergency Medicine; Visit Provider Nurse Practitioner Family
DX: R07.2 Precordial pain (principal); R06.00 Dyspnea, unspecified; E11.69 Type 2 diabetes mellitus with other specified complication; E78.2 Mixed hyperlipidemia; E78.5 Hyperlipidemia, unspecified; E83.42 Hypomagnesemia; F17.200 Nicotine dependence, unspecified, uncomplicated; F41.9 Anxiety disorder, unspecified; I10 Essential (primary) hypertension; I25.10 Atherosclerotic heart disease of native coronary artery without angina pectoris; I25.5 Ischemic cardiomyopathy; N18.9 Chronic kidney disease, unspecified; Z95.5 Presence of coronary angioplasty implant and graft; Z79.84 Long term (current) use of oral hypoglycemic drugs
CPT/HCPCS: 78452; 93017; 93306; A9502; J2785

== ENCOUNTER → 2020-10-07 10:24 | Outpatient (CLI) | payer OTHER, SELFPAY ==
[2020-10-07 11:03] LABS: Basophils # 0.1 K/mm3 (0-0.2); Basophils % 1.2 % (0.1-2.0); Eosinophils # 0.2 K/mm3 (0.0-0.4); Eosinophils % 2.2 % (0.1-12.0); Hematocrit 48.8 % (42.0-52.0); Hemoglobin 15.9 g/dL (14.1-18.0); Lymphocytes # 2.4 K/mm3 (0.7-4.5); Lymphocytes % 31.4 % (10-50); Mean Corpuscular HGB Conc 32.7 g/dL (31.8-35.4); Mean Corpuscular Volume 91.6 fl (80-94); Mean Platelet Volume 7.3 fl (7.4-10.4); Monocytes # 0.5 K/mm3 (0.1-1.0); Monocytes % 7.1 % (1.7-9.3); Neutrophils # 4.4 K/mm3 (1.8-7.8); Neutrophils % 58.2 % (37.0-80.0); Platelet Count 290 K/mm3 (142-424); Red Blood Count 5.32 M/mm3 (4.60-6.20); Red Cell Distribution Width 15.2 % (11.5-17.5); White Blood Count 7.5 K/mm3 (4.8-10.8)
[2020-10-07 11:09] LABS: Chloride 96 mmol/L (98-107); Potassium 4.8 mmoL/L (3.5-5.1); Sodium 135 mmol/L (136-145)
[2020-10-07 11:12] LABS: Anion Gap 10.8 mEq/L (5-15); Blood Urea Nitrogen 32 mg/dl (9-20); Calcium 9.2 mg/dl (8.4-10.2); Carbon Dioxide 33 mmol/L (22.0-30.0); Estimated Glomerular Filt Rate 45 ml/min (>60); GFR (African American) 55 ML/MIN (>60); Glucose 164 mg/dl (74-100)
[2020-10-07 12:28] LABS: Coronavirus 19 IgG Antibody Negative (Negative); Coronavirus 19 IgM Antibody Negative (Negative)
== END ==
PROVIDERS: Visit Provider Internal Medicine
DX: R07.9 Chest pain, unspecified (principal); Z01.818 Encounter for other preprocedural examination; Z03.818 Encounter for observation for suspected exposure to other biological agents ruled out
CPT/HCPCS: 36415; 80048; 85025; 86328

== ENCOUNTER 2020-10-08 08:27 | Day surgery (SDC) | payer OTHER, SELFPAY ==
[2020-10-08] VITALS (11 sets, daily range): BP systolic 109–172; BP diastolic 43–116; PULSE 67–81; RESP 16–20; TEMP 36.6–36.9; O2SAT 90–97; BMI 41.3
--- NOTE | 2020-10-08 07:03 | IR_ITS ---
APPROVED REPORT Patient Location: Outpatient PROCEDURES Left heart catheterization Left ventriculogram Selective coronary angiogram INDICATION High risk abnormal Myoview Informed consent was obtained prior to the procedure. COMPLICATIONS NONE Estimated Blood Loss: LESS THAN 10 ML TECHNIQUE One percent lidocaine used to anesthetize the right anterior aspect of the wrist. The right radial artery was accessed via the Seldinger technique. A 6 [place]ian sheath was placed in the right radial artery. 2.5 mg of verapamil, 800 mcg of nitroglycerin, 1mg Lidocaine and 5000 U Heparin were given through the arterial sheath. The trap catheter was also used to perform left heart catheterization, left ventriculogram and selective coronary angiogram. At the end of the procedure the sheath was removed good hemostasis was achieved using Traclet band, patient was transferred to the postop holding area in stable condition. ANGIOGRAPHIC RESULTS The left main artery Normal The left anterior descending artery Normal The circumflex artery Normal The right coronary artery Dominant normal The CHOI ventriculogram reveals Dilated ventricle with reduced ejection fraction estimated at 45% the inferior apical wall appears hypokinetic The left ventricular end-diastolic pressure Severely elevated at 40 mmHg IMPRESSION Normal coronary arteries Dilated ventricle with regional wall motion abnormality and reduced ejection fraction Severely elevated LVEDP consistent with severe diastolic dysfunction PLAN 1. Patient would benefit from diuretics in order to decrease LVEDP 2. Treat diastolic dysfunction 3. Evaluate for possible sleep apnea 4. Recommend weight loss Electronically signed by : Mingo García, 10/08/2020 10:56:48
--- NOTE | 2020-10-08 08:54 | HMH.PHAINT ---
10/08/2020-CALLED REGISTERED TRAVEL NURSE ABOUT PATIENT AND HIS MAGNESIUM LEVEL. PATIENT'S LAST MAGNESIUM LEVEL WAS 0.9 ON 08/26/20. THIS IS ALSO THE LAST TIME PATIENT RECEIVED MAGNESIUM IV HERE OUTPATIENT.
== END 2020-10-08 13:41 | disposition home or self-care (01) ==
LOC: CATHLAB 08:28
PROVIDERS: PCP Emergency Medicine; Visit Provider Internal Medicine
DX: I25.118 Atherosclerotic heart disease of native coronary artery with other forms of angina pectoris (principal); N18.9 Chronic kidney disease, unspecified; I25.5 Ischemic cardiomyopathy; E78.5 Hyperlipidemia, unspecified; I50.20 Unspecified systolic (congestive) heart failure; E83.42 Hypomagnesemia; F41.9 Anxiety disorder, unspecified; I13.0 Hypertensive heart and chronic kidney disease with heart failure and stage 1 through stage 4 chronic kidney disease, or unspecified chronic kidney disease; E11.22 Type 2 diabetes mellitus with diabetic chronic kidney disease; Z95.5 Presence of coronary angioplasty implant and graft; Z79.51 Long term (current) use of inhaled steroids; Z79.82 Long term (current) use of aspirin; Z79.84 Long term (current) use of oral hypoglycemic drugs; Z79.899 Other long term (current) drug therapy
CPT/HCPCS: 93458; 99152; C1725; C1760; C1769; J1644; Q9967

== ENCOUNTER 2020-10-14 12:05 | Outpatient (CLI) | payer OTHER, SELFPAY ==
[2020-10-14 12:10] VITALS: BMI 41.6
[2020-10-14 12:25] LABS: Chloride 100 mmol/L (98-107); Potassium 4.8 mmoL/L (3.5-5.1); Sodium 135 mmol/L (136-145)
[2020-10-14 12:27] VITALS: BP 126/77; PULSE 72; RESP 18; TEMP 36.6; O2SAT 98
[2020-10-14 12:28] LABS: Anion Gap 11.8 mEq/L (5-15); Blood Urea Nitrogen 33 mg/dl (9-20); Calcium 9.2 mg/dl (8.4-10.2); Carbon Dioxide 28 mmol/L (22.0-30.0); Creatinine Clearance Estimated 53 mL/min (50-200); Estimated Glomerular Filt Rate 45 ml/min (>60); GFR (African American) 55 ML/MIN (>60); Glucose 178 mg/dl (74-100)
[2020-10-14 12:29] LABS: Magnesium 1.1 mg/dl (1.6-2.3)
[2020-10-14 13:00] VITALS: BP 128/74; PULSE 75; RESP 16; O2SAT 98
[2020-10-14 13:40] VITALS: BP 131/74; PULSE 71; RESP 16; TEMP 36.6; O2SAT 99
== END 2020-10-14 13:40 | disposition home or self-care (01) ==
LOC: INF 12:07
PROVIDERS: Visit Provider Physician Assistant
DX: E83.42 Hypomagnesemia (principal)
CPT/HCPCS: 80048; 83735; 96365

== ENCOUNTER → 2020-10-15 10:45 | Outpatient (CLI) | payer OTHER, SELFPAY ==
[2020-10-15 11:54] LABS: Chol/HDL Ratio 4.4 (1-3.5); Cholesterol 268 mg/dl (140-200); HDL Cholesterol 61 mg/dl (40-60); Triglycerides 272 mg/dl (30-150); VLDL Cholesterol 54 mg/dL (0-40)
[2020-10-15 12:05] LABS: Direct LDL Cholesterol 161.85 mg/dL (100-129)
== END ==
PROVIDERS: Urology; Visit Provider Nurse Practitioner Family
DX: E78.5 Hyperlipidemia, unspecified (principal)
CPT/HCPCS: 36415; 80061

== ENCOUNTER 2020-11-11 12:35 | Outpatient (CLI) | payer OTHER, SELFPAY ==
[2020-11-11 12:39] VITALS: BMI 41.6
[2020-11-11 13:17] VITALS: BP 101/69; PULSE 79; RESP 18; TEMP 36.2; O2SAT 97
[2020-11-11 13:23] LABS: Chloride 101 mmol/L (98-107); Potassium 4.5 mmoL/L (3.5-5.1); Sodium 137 mmol/L (136-145)
[2020-11-11 13:25] LABS: Blood Urea Nitrogen 31 mg/dl (9-20); Creatinine Clearance Estimated 47 mL/min (50-200); Estimated Glomerular Filt Rate 40 ml/min (>60); GFR (African American) 48 ML/MIN (>60)
[2020-11-11 13:26] LABS: Alanine Aminotransferase 16 U/L (12-78); Albumin Level 4.2 g/dl (3.5-5.0); Albumin/Globulin Ratio 1.4 (1.1-1.8); Alkaline Phosphatase 69 U/L (38-126); Anion Gap 15.5 mEq/L (5-15); Aspartate Amino Transferase 22 U/L (17-59); Bilirubin,Total 0.4 mg/dl (0.2-1.3); Calcium 9.4 mg/dl (8.4-10.2); Carbon Dioxide 25 mmol/L (22.0-30.0); Globulin 3.1 g/dL (1.3-3.2); Glucose 195 mg/dl (74-100); Total Protein,Serum 7.3 g/dl (6.3-8.2)
[2020-11-11 13:47] VITALS: BP 105/62; PULSE 78; RESP 18; O2SAT 97
[2020-11-11 14:17] VITALS: BP 117/51; PULSE 78; RESP 18; O2SAT 98
[2020-11-11 14:25] VITALS: BP 111/58; PULSE 76; RESP 18; O2SAT 97
[2020-11-11 15:26] LABS: Alanine Aminotransferase 15 U/L (12-78); Alkaline Phosphatase 68 U/L (38-126); Aspartate Amino Transferase 20 U/L (17-59); Bilirubin,Direct 0.4 mg/dl (0.0-0.4); Bilirubin,Total 0.4 mg/dl (0.2-1.3); Chol/HDL Ratio 3.1 (1-3.5); Cholesterol 190 mg/dl (140-200); HDL Cholesterol 62 mg/dl (40-60); Total Protein,Serum 6.9 g/dl (6.3-8.2); Triglycerides 213 mg/dl (30-150); VLDL Cholesterol 43 mg/dL (0-40)
[2020-11-11 15:38] LABS: Direct LDL Cholesterol 99.02 mg/dL (100-129)
== END 2020-11-11 14:38 | disposition home or self-care (01) ==
LOC: INF 12:35
PROVIDERS: Urology; PCP Internal Medicine; Visit Provider Physician Assistant
DX: E83.42 Hypomagnesemia (principal); E78.5 Hyperlipidemia, unspecified
CPT/HCPCS: 80053; 80061; 80076; 83735; 96365

== ENCOUNTER → 2020-11-29 12:11 | Outpatient (CLI) | payer OTHER, SELFPAY ==
[2020-11-29 14:31] LABS: Coronavirus 19 IgG Antibody Negative (Negative); Coronavirus 19 IgM Antibody Negative (Negative)
== END ==
PROVIDERS: Visit Provider Internal Medicine
DX: Z20.822 Contact with and (suspected) exposure to COVID-19 (principal); K22.70 Barrett's esophagus without dysplasia
CPT/HCPCS: 36415; 86328

== ENCOUNTER 2021-01-27 12:20 | Outpatient (CLI) | payer OTHER, SELFPAY ==
[2021-01-27 12:37] VITALS: BMI 41.3
[2021-01-27 13:01] LABS: Anion Gap 11.1 mEq/L (5-15); Blood Urea Nitrogen 24 mg/dl (9-20); Calcium 8.5 mg/dl (8.4-10.2); Carbon Dioxide 27 mmol/L (22.0-30.0); Chloride 101 mmol/L (98-107); Creatinine Clearance Estimated 56 mL/min (50-200); Estimated Glomerular Filt Rate 49 ml/min (>60); GFR (African American) 59 ML/MIN (>60); Glucose 156 mg/dl (74-100); Potassium 5.1 mmoL/L (3.5-5.1); Sodium 134 mmol/L (136-145)
[2021-01-27 13:02] LABS: Magnesium 0.8 mg/dl (1.6-2.3)
[2021-01-27 13:25] VITALS: BP 124/76; PULSE 74; RESP 18; TEMP 36.4; O2SAT 97
[2021-01-27 14:45] VITALS: BP 117/77; PULSE 68; RESP 18
== END 2021-01-27 14:45 | disposition home or self-care (01) ==
LOC: INF 12:33
PROVIDERS: Visit Provider Nurse Practitioner Family
DX: E83.42 Hypomagnesemia (principal)
CPT/HCPCS: 80048; 83735; 96365

== ENCOUNTER 2021-03-10 12:16 | Outpatient (CLI) | payer OTHER, SELFPAY ==
[2021-03-10 12:19] VITALS: BMI 41.3
[2021-03-10 12:30] VITALS: BP 93/66; PULSE 76; RESP 20; TEMP 36.3; O2SAT 96
[2021-03-10 13:00] VITALS: BP 99/61; PULSE 74; RESP 20; O2SAT 97
[2021-03-10 13:36] LABS: Magnesium 0.7 mg/dl (1.6-2.3)
[2021-03-10 13:38] VITALS: BP 103/59; PULSE 78; RESP 20; O2SAT 96
[2021-03-10 13:47] LABS: Anion Gap 12.1 mEq/L (5-15); Blood Urea Nitrogen 22 mg/dl (9-20); Calcium 7.7 mg/dl (8.4-10.2); Carbon Dioxide 28 mmol/L (22.0-30.0); Chloride 98 mmol/L (98-107); Creatinine Clearance Estimated 50 mL/min (50-200); Estimated Glomerular Filt Rate 42 ml/min (>60); GFR (African American) 51 ML/MIN (>60); Glucose 198 mg/dl (74-100); Potassium 4.1 mmoL/L (3.5-5.1); Sodium 134 mmol/L (136-145)
== END 2021-03-10 13:40 | disposition home or self-care (01) ==
LOC: INF 12:16
PROVIDERS: PCP Nurse Practitioner Family; Visit Provider Physician Assistant
DX: E83.42 Hypomagnesemia (principal)
CPT/HCPCS: 80048; 83735; 96365

== ENCOUNTER 2021-03-17 12:30 | Outpatient (CLI) | payer OTHER, SELFPAY ==
[2021-03-17 12:33] VITALS: BMI 41.3
[2021-03-17 12:59] LABS: Chloride 100 mmol/L (98-107); Potassium 4.7 mmoL/L (3.5-5.1); Sodium 134 mmol/L (136-145)
[2021-03-17 13:02] LABS: Anion Gap 10.7 mEq/L (5-15); Blood Urea Nitrogen 25 mg/dl (9-20); Calcium 9.4 mg/dl (8.4-10.2); Carbon Dioxide 28 mmol/L (22.0-30.0); Creatinine Clearance Estimated 60 mL/min (50-200); Estimated Glomerular Filt Rate 53 ml/min (>60); GFR (African American) 64 ML/MIN (>60); Glucose 181 mg/dl (74-100); Magnesium 1.1 mg/dl (1.6-2.3)
[2021-03-17 13:13] VITALS: BP 118/75; PULSE 66; RESP 18; O2SAT 94
[2021-03-17 14:30] VITALS: BP 137/98; PULSE 68; RESP 18
== END 2021-03-17 14:30 | disposition home or self-care (01) ==
LOC: INF 12:32
PROVIDERS: Visit Provider Physician Assistant
DX: E83.42 Hypomagnesemia (principal)
CPT/HCPCS: 80048; 83735; 96365

== ENCOUNTER 2021-04-07 12:05 | Outpatient (CLI) | payer OTHER, SELFPAY ==
[2021-04-07 12:06] VITALS: BMI 41.6
[2021-04-07 12:28] VITALS: BP 154/64; PULSE 84; RESP 18; TEMP 36.4; O2SAT 97
[2021-04-07 12:33] LABS: Magnesium 0.9 mg/dl (1.6-2.3)
[2021-04-07 12:51] LABS: Chloride 102 mmol/L (98-107); Potassium 4.5 mmoL/L (3.5-5.1); Sodium 136 mmol/L (136-145)
[2021-04-07 12:53] LABS: Alanine Aminotransferase 21 U/L (12-78); Aspartate Amino Transferase 32 U/L (17-59); Blood Urea Nitrogen 25 mg/dl (9-20); Creatinine Clearance Estimated 60 mL/min (50-200); Estimated Glomerular Filt Rate 53 ml/min (>60); GFR (African American) 64 ML/MIN (>60)
[2021-04-07 12:54] LABS: Albumin Level 3.9 g/dl (3.5-5.0); Albumin/Globulin Ratio 1.3 (1.1-1.8); Alkaline Phosphatase 71 U/L (38-126); Anion Gap 10.5 mEq/L (5-15); Bilirubin,Total 0.5 mg/dl (0.2-1.3); Calcium 9.2 mg/dl (8.4-10.2); Carbon Dioxide 28 mmol/L (22.0-30.0); Globulin 2.9 g/dL (1.3-3.2); Glucose 127 mg/dl (74-100); Total Protein,Serum 6.8 g/dl (6.3-8.2)
[2021-04-07 12:58] VITALS: BP 148/62; PULSE 88; RESP 18; O2SAT 97
[2021-04-07 13:20] LABS: Uric Acid 10.4 mg/dl (3.5-8.5)
[2021-04-07 13:28] VITALS: BP 150/68; PULSE 82; RESP 18; O2SAT 97
[2021-04-07 14:32] LABS: Hemoglobin A1C 7.5 % (4.0-6.0)
== END 2021-04-07 13:57 | disposition home or self-care (01) ==
LOC: INF 12:05
PROVIDERS: Podiatrist; Visit Provider Physician Assistant
DX: E11.9 Type 2 diabetes mellitus without complications (principal); Z79.84 Long term (current) use of oral hypoglycemic drugs
CPT/HCPCS: 80053; 83036; 83735; 84550; 96365

== ENCOUNTER 2021-04-28 13:20 | Emergency (ER) | payer OTHER, SELFPAY ==
[2021-04-28 13:24] VITALS: BP 155/101; PULSE 84; RESP 14; O2SAT 96; BMI 41.3
--- NOTE | 2021-04-28 13:27 | ECG_ITS ---
APPROVED REPORT Exam: Resting ECG HR:88 bpm ECG Measurements Heart Rate 88 AXES AK 130 P 54 QRSd 118 QRS 9 QT 432 T 72 QTc 522 Conclusion Normal sinus rhythm Left atrial abnormality Incomplete right bundle branch block Nonspecific T wave abnormality Prolonged QT Abnormal ECG Electronically signed by : Boaz Lopez, 04/28/2021 17:31:32
--- NOTE | 2021-04-28 13:32 | CA_ITS ---
APPROVED REPORT Bilateral Lower Extremity Venous Study for DVT. Field Agent: DAE LewT Indications Lower Extremity Pain: Right Lower Extremity Edema: Right DVT of Lower Extremity: Right Current Smoker CAD RLE pain. h/o dvt Risk Factors Prior Phlebitis/DVT Obesity Current Smoker CAD Past History DVT : Medications Plavix Vein Imaging CFV (R): compressive, spontaneous, phasic, augmentation FEM (R): compressive, spontaneous, phasic, augmentation POP (R): compressive, spontaneous, phasic, augmentation PTV (R): Compressible GSV (R): Compressible Peroneals (R):Compressible GAS (R): Compressible CFV (L): compressive, spontaneous, phasic, augmentation FEM (L): compressive, spontaneous, phasic, augmentation POP (L): compressive, spontaneous, phasic, augmentation PTV (L): Compressible GSV (L): Compressible Peroneals (L):Compressible GAS (L): Compressible Findings Study suggests no evidence of DVT or SVT of the bilateral lower extremites. There is a 6.3 X 4.7 cm cystic lesion right popliteal fossa, ? garcia's cyst. Conclusion Study suggests no evidence of DVT or SVT of the bilateral lower extremites. There is a 6.3 X 4.7 cm cystic lesion right popliteal fossa, consistent with a garcia's cyst. Critical Notification Date: 04/28/2021 Time: 14:36 Physician Name: Baltazar rowan Electronically signed by : Mathew Helton MD 04/28/2021 17:08:16
--- NOTE | 2021-04-28 13:32 | HMH.EDGENADL ---
ED Disposition Clinical Impression: CHF exacerbation Qualifiers: Heart failure type: unspecified Qualified Code(s): I50.9 - Heart failure, unspecified Disposition: Home, Self-Care Condition on Discharge: Good Referrals: Provider,Referral, [Primary Care Provider] - (1-2 w/ PCP) Time of Disposition: 16:42 - Critical Care Critical Care Time: No Attestation: On 04/28/21, the high probability of a clinically significant, sudden or life threatening deterioration of the following system(s) required my full and direct attention, intervention and personal management. The time I documented below is in addition to time spent performing reported procedures but includes the following listed in this critical care notation. Medical Decision Making - Medical Records Medical records reviewed: Yes: I reviewed the patient's medical records. - Uziel Inquiry Pt receiving controlled substance: No Vital Signs: 04/28/21 13:24 04/28/21 13:45 Pulse Rate 75 Pulse Rate [Left Radial] 84 Respiratory Rate 14 17 Blood Pressure 153/99 H Blood Pressure [Right Arm] 155/101 H Blood Pressure Mean [Right Arm] 119 Blood Pressure Source [Right Arm] Automatic Cuff Blood Pressure Position [Right Arm] Sitting 02 Sat by Pulse Oximetry 96 94 L Oxygen Delivery Method Room Air - Lab Data Lab results reviewed: Yes: I reviewed the patient's lab results. Lab Results 04/28/21 13:30: WBC 10.0, RBC 4.62, Hgb 13.9 L, Hct 42.2, MCV 91.5, MCH 30.1, MCHC 32.9, RDW 16.2, Plt Count 328, MPV 8.2, Neut % (Auto) 62.6, Lymph % (Auto) 28.5, [place] % (Auto) 5.8, Eos % (Auto) 2.4, Baso % (Auto) 0.7, Neut # (Auto) 6.2, Lymph # (Auto) 2.9, [place] # (Auto) 0.6, Eos # (Auto) 0.2, Baso # (Auto) 0.1 04/28/21 13:30: Sodium 137, Potassium 4.1, Chloride 101, Carbon Dioxide 23, Anion Gap 17.1 H, BUN 16, Creatinine 1.30 H, Estimated Creat Clear 64, Estimated GFR 57 L, Est GFR ( Amer) 69, Glucose 152 H, Calcium 8.3 L, Troponin I 0.03, NT-Pro-B Natriuret Pep 5160 H 04/28/21 15:33: Troponin I 0.03 Result diagrams: 04/28/21 13:30 04/28/21 13:30 Orders (Tests/Meds): ED MEDICATIONS Discontinued Medications Generic Name Dose Route Start Last Admin Trade Name Rachael PRN Reason Stop Dose Admin Furosemide 40 mg 04/28/21 14:19 04/28/21 14:25 Furosemide 40mg/4ml Vial IV 04/28/21 14:20 40 mg ONCE ONE Administration - US Data US Images: Lower Extremity Preliminary Findings: Normal/NAD (No sign of DVT. Cystic structure to posterior right knee, likely Langley's cyst) - ECG Data Tracing #1 I reviewed this ECG and interpreted as documented below: Normal sinus rhythm, 88 bpm, incomplete right bundle branch block with nonspecific T wave abnormality, prolonged QT. No ST elevation or depression ECG initial impression date: 04/28/21 ECG initial impression time: 13:28 - DOYLE Score for Non-Stemi Age of Patient: 50-59 years old Heart Rate: 70-89 bpm Systolic Blood Pressure: 140-159 mmHg Serum Creatinine: 1.20-1.59 mg/dl CHF [place] Class: I-No CHF Other Risk Factors: None Non-Stemi Risk Score: 84 Medical Decision Narrative: 56yo M evaluated for chest pain and concern for DVT. Patient is in no acute distress on initial evaluation. Routine cardiac work-up is been initiated. EKG reviewed as above, no tachycardia. Bilateral venous Dopplers are pending. Patient metabolic panel and CBC are unremarkable. Patient's creatinine is 1.3, which is within his normal range. Troponin is 0.03. Patient's BNP is over 5000. Patient is provided 40 of Lasix IV. Repeat troponin at 2 hours. Repeat troponin is unchanged at 0.03. Patient has had a liter of urine output. Reports he is feeling much better. Further discussion with the patient reveals that he is not been taking his Lasix as directed; he supposed to be taking twice daily tablets daily and he has been taking 1 tab every other day. Discussed with the patient most of his symptoms are secondary to fluid ov
[2021-04-28 13:39] LABS: Basophils # 0.1 K/mm3 (0-0.2); Basophils % 0.7 % (0.1-2.0); Eosinophils # 0.2 K/mm3 (0.0-0.4); Eosinophils % 2.4 % (0.1-12.0); Hematocrit 42.2 % (42.0-52.0); Hemoglobin 13.9 g/dL (14.1-18.0); Lymphocytes # 2.9 K/mm3 (0.7-4.5); Lymphocytes % 28.5 % (10-50); Mean Corpuscular HGB Conc 32.9 g/dL (31.8-35.4); Mean Corpuscular Hemoglobin 30.1 pg (27.0-31.2); Mean Corpuscular Volume 91.5 fl (80-94); Mean Platelet Volume 8.2 fl (7.4-10.4); Monocytes # 0.6 K/mm3 (0.1-1.0); Monocytes % 5.8 % (1.7-9.3); Neutrophils # 6.2 K/mm3 (1.8-7.8); Neutrophils % 62.6 % (37.0-80.0); Platelet Count 328 K/mm3 (142-424); Red Blood Count 4.62 M/mm3 (4.60-6.20); Red Cell Distribution Width 16.2 % (11.5-17.5)
[2021-04-28 13:41] LABS: Chloride 101 mmol/L (98-107)
[2021-04-28 13:42] LABS: Potassium 4.1 mmoL/L (3.5-5.1); Sodium 137 mmol/L (136-145)
[2021-04-28 13:44] LABS: Blood Urea Nitrogen 16 mg/dl (9-20); Creatinine Clearance Estimated 64 mL/min (50-200); Estimated Glomerular Filt Rate 57 ml/min (>60); GFR (African American) 69 ML/MIN (>60)
[2021-04-28 13:45] VITALS: BP 153/99; PULSE 75; RESP 17; O2SAT 94
[2021-04-28 13:45] LABS: Anion Gap 17.1 mEq/L (5-15); Calcium 8.3 mg/dl (8.4-10.2); Carbon Dioxide 23 mmol/L (22.0-30.0); Glucose 152 mg/dl (74-100)
[2021-04-28 13:54] LABS: NT Pro Brain Natriuretic Pep. 5160 pg/mL (0-125)
[2021-04-28 13:58] LABS: Troponin I 0.03 ng/ml (0.00-0.034)
[2021-04-28 14:01] VITALS: BP 150/91; PULSE 74; RESP 21; O2SAT 96
--- NOTE | 2021-04-28 14:18 | PC.NURSE ---
cv lab staff at
--- NOTE | 2021-04-28 14:25 | PC.NURSE ---
Pt given urinal instructed to urinated in urinal
[2021-04-28 16:13] LABS: Troponin I 0.03 ng/ml (0.00-0.034)
[2021-04-28 16:56] VITALS: BP 150/91; PULSE 72; RESP 21; TEMP 37; O2SAT 96
== END 2021-04-28 17:09 | disposition home or self-care (01) ==
PROVIDERS: Emergency Provider Family Medicine
DX: I50.21 Acute systolic (congestive) heart failure (principal); I25.10 Atherosclerotic heart disease of native coronary artery without angina pectoris; F41.8 Other specified anxiety disorders; E11.9 Type 2 diabetes mellitus without complications; I10 Essential (primary) hypertension; I25.2 Old myocardial infarction; E03.9 Hypothyroidism, unspecified; F17.210 Nicotine dependence, cigarettes, uncomplicated
CPT/HCPCS: 36415; 80048; 83880; 84484; 85025; 93005; 93970; 96374; 99282

== ENCOUNTER → 2021-04-30 12:51 | Outpatient (CLI) | payer OTHER, SELFPAY ==
[2021-04-30 14:20] LABS: Alanine Aminotransferase 17 U/L (12-78); Alkaline Phosphatase 89 U/L (38-126); Anion Gap 16.4 mEq/L (5-15); Aspartate Amino Transferase 23 U/L (17-59); Bilirubin,Direct 0.5 mg/dl (0.0-0.4); Bilirubin,Indirect 0.1 mg/dL (0.0-0.9); Bilirubin,Total 0.6 mg/dl (0.2-1.3); Bilirubin,Unconjugated 0.1 mg/dL (0.0-1.1); Blood Urea Nitrogen 20 mg/dl (9-20); Calcium 8.6 mg/dl (8.4-10.2); Carbon Dioxide 28 mmol/L (22.0-30.0); Chloride 97 mmol/L (98-107); Estimated Glomerular Filt Rate 45 ml/min (>60); GFR (African American) 55 ML/MIN (>60); Glucose 160 mg/dl (74-100); Potassium 4.4 mmoL/L (3.5-5.1); Sodium 137 mmol/L (136-145); Uric Acid 11.2 mg/dl (3.5-8.5)
[2021-04-30 14:38] LABS: T4 (Thyroxine) 9.5 ug/dl (5.53-11.0)
[2021-04-30 14:51] LABS: Thyroid Stimulating Hormone 2.74 uIU/mL (0.465-4.68)
== END ==
PROVIDERS: Visit Provider Nurse Practitioner Family
DX: M10.9 Gout, unspecified (principal); N18.9 Chronic kidney disease, unspecified; E03.9 Hypothyroidism, unspecified
CPT/HCPCS: 80048; 80076; 84436; 84443; 84550

== ENCOUNTER → 2021-05-05 12:51 | Outpatient (CLI) | payer OTHER, SELFPAY ==
--- NOTE | 2021-05-05 12:55 | XR_ITS ---
PROCEDURE: XR KNEE RT 4V CLINICAL INDICATION: R Knee pain COMPARISON: CR [id number] XR knee LT 3V from 05/11/2018 CR [id number] XR knee RT 3V from 05/11/2018 FINDINGS: No fracture or dislocation. No lytic or blastic change. There is normal mineralization. Minimal degenerative changes noted with slight decrease in the joint space medially, small tibial spine spurs, and slight lateral patellar subluxation Other findings:There is some increased soft tissue density in the suprapatellar region suggesting small knee joint effusion. Patellar enthesophyte noted superiorly. IMPRESSION: No acute fracture. Small knee joint effusion with mild degenerative change. Dictated by: Mathew Helton MD 05/05/2021 13:35 Mathew Helton MD in [place] 05/05/2021 13:35
== END ==
PROVIDERS: PCP Nurse Practitioner Family; Visit Provider Nurse Practitioner Family
DX: M25.561 Pain in right knee (principal)
CPT/HCPCS: 73564

== ENCOUNTER 2021-05-07 14:11 | Emergency (ER) | payer OTHER, SELFPAY ==
--- NOTE | 2021-05-07 14:01 | ECG_ITS ---
APPROVED REPORT Exam: Resting ECG HR:165 bpm ECG Measurements Heart Rate 165 AXES OH 128 P QRSd 128 QRS -25 QT 258 T 248 QTc 427 Conclusion Sinus tachycardia Right bundle branch block T wave abnormality, consider lateral ischemia Abnormal ECG Electronically signed by : Boaz Lopez, 05/07/2021 17:40:05
[2021-05-07 14:12] VITALS: BP 117/89; PULSE 165; RESP 16; TEMP 36.7; O2SAT 97; BMI 41.3
[2021-05-07 14:14] VITALS: BMI 41.3
--- NOTE | 2021-05-07 14:15 | XR_ITS ---
PROCEDURE: XR CHEST PORTABLE CLINICAL HISTORY: elevated heart rate COMPARISON: CR [id number] XR chest portable from 03/20/2018 CR CXR2V XR chest 2V from 05/11/2018 CR CXR2V XR chest 2V from 07/20/2018 FINDINGS: The cardiomediastinal silhouette and pulmonary vascularity are within normal limits. The lungs are clear without infiltrates, suspicious nodules, or pleural effusions. No acute bony abnormalities. IMPRESSION: No acute findings. Dictated by: Mathew Helton MD 05/07/2021 14:32 Mathew Helton MD in [place] 05/07/2021 14:33
[2021-05-07 14:26] LABS: Basophils # 0.1 K/mm3 (0-0.2); Basophils % 0.5 % (0.1-2.0); Eosinophils # 0.1 K/mm3 (0.0-0.4); Eosinophils % 1.1 % (0.1-12.0); Hematocrit 49.3 % (42.0-52.0); Hemoglobin 15.8 g/dL (14.1-18.0); Lymphocytes # 3.5 K/mm3 (0.7-4.5); Lymphocytes % 27.1 % (10-50); Mean Corpuscular HGB Conc 32.1 g/dL (31.8-35.4); Mean Corpuscular Volume 93.5 fl (80-94); Mean Platelet Volume 7.7 fl (7.4-10.4); Monocytes # 0.6 K/mm3 (0.1-1.0); Monocytes % 4.5 % (1.7-9.3); Neutrophils # 8.5 K/mm3 (1.8-7.8); Neutrophils % 66.7 % (37.0-80.0); Platelet Count 412 K/mm3 (142-424); Red Blood Count 5.27 M/mm3 (4.60-6.20); Red Cell Distribution Width 16.7 % (11.5-17.5); White Blood Count 12.7 K/mm3 (4.8-10.8)
--- NOTE | 2021-05-07 14:36 | HMH.EDARPALP ---
ED Disposition Clinical Impression: Renal insufficiency, Hypomagnesemia Cardiac arrhythmia Qualifiers: Arrhythmia type: atrial flutter Atrial flutter type: unspecified Qualified Code(s): I48.92 - Unspecified atrial flutter Coronary artery disease Qualifiers: Coronary Disease-Associated Artery/Lesion type: [place] artery [place] vs. transplanted heart: galena heart Associated angina: unspecified whether angina present Qualified Code(s): I25.10 - Atherosclerotic heart disease of [place] coronary artery without angina pectoris Right knee injury Qualifiers: Encounter type: initial encounter Qualified Code(s): S89.91XA - Unspecified injury of right lower leg, initial encounter Disposition: Home, Self-Care Condition on Discharge: Good Instructions: DI for Atrial Flutter Additional Instructions: see pcp or card this week Prescriptions: dilTIAZem HCL [Cardizem ER 240mg Capsule] 240 mg PO DAILY #10 cap.er.24h Transmission Status: Pending to [facility] Referrals: Heriberto Odell APRN [Primary Care Provider] - - Critical Care Critical Care Time: No Attestation: On 05/07/21, the high probability of a clinically significant, sudden or life threatening deterioration of the following system(s) required my full and direct attention, intervention and personal management. The time I documented below is in addition to time spent performing reported procedures but includes the following listed in this critical care notation. Medical Decision Making - Medical Records Medical records reviewed: Yes: I reviewed the patient's medical records. - Uziel Inquiry Pt receiving controlled substance: No Vital Signs: 05/07/21 14:12 05/07/21 15:17 Temperature 98.0 F Temperature Source Oral Pulse Rate 164 H Pulse Rate [Right] 165 H Respiratory Rate 16 18 Blood Pressure 125/95 H Blood Pressure [Right Arm] 117/89 Blood Pressure Mean [Right Arm] 98 Blood Pressure Source Manual Cuff/ Auscultation 02 Sat by Pulse Oximetry 97 94 L Oxygen Delivery Method Room Air - Lab Data Lab results reviewed: Yes: I reviewed the patient's lab results. Lab Results 05/07/21 12:58: Urine Color Yellow, Urine Appearance Clear, Urine pH 5.5, Ur Specific [place] 1.020, Urine Protein Negative, Urine Glucose (UA) Negative, Urine Ketones Negative, Urine Blood Negative, Urine Nitrate Negative, Urine Bilirubin Negative, Urine Urobilinogen 0.2, Ur Leukocyte Esterase Negative, Urine RBC Occasional, Urine WBC Occasional, Ur Squamous Epith Cells Occasional, Urine Bacteria None 05/07/21 14:12: WBC 12.7 H, RBC 5.27, Hgb 15.8, Hct 49.3, MCV 93.5, MCH 30.0, MCHC 32.1, RDW 16.7, Plt Count 412, MPV 7.7, Neut % (Auto) 66.7, Lymph % (Auto) 27.1, [place] % (Auto) 4.5, Eos % (Auto) 1.1, Baso % (Auto) 0.5, Neut # (Auto) 8.5 H, Lymph # (Auto) 3.5, [place] # (Auto) 0.6, Eos # (Auto) 0.1, Baso # (Auto) 0.1 05/07/21 14:35: Sodium 135 L, Potassium 3.5, Chloride 99, Carbon Dioxide 24, Anion Gap 15.5 H, BUN 41 H, Creatinine 1.30 H, Estimated Creat Clear 64, Estimated GFR 57 L, Est GFR ( Amer) 69, Glucose 241 H, Calcium 8.9, Magnesium 1.0 L, Total Bilirubin 0.4, AST 26, ALT 17, Alkaline Phosphatase 60, Troponin I 0.10 H, Total Protein 6.8, Albumin 4.0, Globulin 2.8, Albumin/Globulin Ratio 1.4 05/07/21 14:35: TSH 4.22, Thyroxine (T4) 6.9 Result diagrams: 05/07/21 14:12 05/07/21 14:35 Orders (Tests/Meds): ED MEDICATIONS Generic Name Dose Route Start Last Admin Trade Name Freq PRN Reason Stop Dose Admin Diltiazem HCl 100 mg/ Sodium 100 mls @ 10 mls/hr 05/07/21 15:11 05/07/21 15:24 Chloride IV 06/06/21 15:10 10 mls/hr .Q10H CYNDEE Administration Protocol Discontinued Medications Generic Name Dose Route Start Last Admin Trade Name Freq PRN Reason Stop Dose Admin Aspirin 243 mg 05/07/21 14:32 05/07/21 14:48 Aspirin 81mg Chewable Tablet PO 05/07/21 14:33 243 mg ONCE ONE Administration Diltiazem HCl 10 mg 05/07/21 15:08
[2021-05-07 14:57] LABS: Chloride 99 mmol/L (98-107); Potassium 3.5 mmoL/L (3.5-5.1); Sodium 135 mmol/L (136-145)
[2021-05-07 15:00] LABS: Alanine Aminotransferase 17 U/L (12-78); Albumin/Globulin Ratio 1.4 (1.1-1.8); Alkaline Phosphatase 60 U/L (38-126); Anion Gap 15.5 mEq/L (5-15); Aspartate Amino Transferase 26 U/L (17-59); Bilirubin,Total 0.4 mg/dl (0.2-1.3); Blood Urea Nitrogen 41 mg/dl (9-20); Calcium 8.9 mg/dl (8.4-10.2); Carbon Dioxide 24 mmol/L (22.0-30.0); Creatinine Clearance Estimated 64 mL/min (50-200); Estimated Glomerular Filt Rate 57 ml/min (>60); GFR (African American) 69 ML/MIN (>60); Globulin 2.8 g/dL (1.3-3.2); Glucose 241 mg/dl (74-100); Total Protein,Serum 6.8 g/dl (6.3-8.2)
[2021-05-07 15:06] LABS: Microscopic, Urine URINE MICROSCOPIC (MICROSCOPIC)
[2021-05-07 15:13] LABS: Appearance,Urine CLEAR (Clear); Bilirubin,Urine Negative (Negative); Blood, Urine Negative (Negative); Color,Urine YELLOW (Yellow); Glucose,Urine (UA) Negative (Negative); Ketones,Urine Negative (Negative); Leukocyte Esterase,Urine Negative (Negative); Nitrate,Urine Negative (Negative); PH,Urine 5.5 (5.0-8.5); Protein,Urine Negative (Negative); Urobilinogen,Urine 0.2 EU/dl (0.2)
[2021-05-07 15:17] VITALS: BP 125/95; PULSE 164; RESP 18; O2SAT 94
[2021-05-07 15:41] LABS: T4 (Thyroxine) 6.9 ug/dl (5.53-11.0)
[2021-05-07 15:51] LABS: RBC,Urine Occasional #/hpf (0-3); Squamous Epithelial Cell,Urine Occasional #/hpf (0-5); WBC,Urine Occasional #/hpf (0-3)
[2021-05-07 15:55] LABS: Thyroid Stimulating Hormone 4.22 uIU/mL (0.465-4.68)
--- NOTE | 2021-05-07 15:55 | ECG_ITS ---
APPROVED REPORT Exam: Resting ECG HR:70 bpm ECG Measurements Heart Rate 70 AXES MI 132 P 10 QRSd 86 QRS 13 QT 434 T 124 QTc 468 Conclusion Normal sinus rhythm T wave abnormality, consider lateral ischemia Abnormal ECG Electronically signed by : Boaz Lopez, 05/08/2021 17:43:29
--- NOTE | 2021-05-07 16:02 | PC.NURSE ---
CARDIZEM DRIP STOPPED PER MD VERBAL ORDERS
[2021-05-07 16:30] VITALS: BP 127/89; PULSE 65; RESP 18; TEMP 36.7; O2SAT 98
== END 2021-05-07 16:58 | disposition home or self-care (01) ==
PROVIDERS: Emergency Provider Emergency Medicine; PCP Nurse Practitioner Family
DX: I48.92 Unspecified atrial flutter (principal); N28.9 Disorder of kidney and ureter, unspecified; I25.10 Atherosclerotic heart disease of native coronary artery without angina pectoris; M71.21 Synovial cyst of popliteal space [Baker], right knee; E11.65 Type 2 diabetes mellitus with hyperglycemia; E78.5 Hyperlipidemia, unspecified; I10 Essential (primary) hypertension; I25.2 Old myocardial infarction; F17.210 Nicotine dependence, cigarettes, uncomplicated; Z79.899 Other long term (current) drug therapy
CPT/HCPCS: 71045; 80053; 81001; 83735; 84436; 84443; 84484; 85025; 93005; 96365; 99202; 99284; G0463

== ENCOUNTER 2021-05-21 12:33 | Observation (INO) | payer OTHER, SELFPAY ==
[2021-05-21] VITALS (8 sets, daily range): BP systolic 117–145; BP diastolic 73–99; PULSE 64–88; RESP 17–20; TEMP 36.6–37.3; O2SAT 94–100; BMI 38.4; BMI 39.4
[2021-05-21 09:15] LABS: Basophils # 0.1 K/mm3 (0-0.2); Basophils % 0.7 % (0.1-2.0); Eosinophils # 0.2 K/mm3 (0.0-0.4); Eosinophils % 1.5 % (0.1-12.0); Hematocrit 45.9 % (42.0-52.0); Hemoglobin 15.2 g/dL (14.1-18.0); Lymphocytes # 2.7 K/mm3 (0.7-4.5); Lymphocytes % 28.1 % (10-50); Mean Corpuscular Hemoglobin 29.9 pg (27.0-31.2); Mean Corpuscular Volume 90.6 fl (80-94); Mean Platelet Volume 7.4 fl (7.4-10.4); Monocytes # 0.5 K/mm3 (0.1-1.0); Monocytes % 5.5 % (1.7-9.3); Neutrophils # 6.2 K/mm3 (1.8-7.8); Neutrophils % 64.1 % (37.0-80.0); Platelet Count 437 K/mm3 (142-424); Red Blood Count 5.07 M/mm3 (4.60-6.20); Red Cell Distribution Width 15.1 % (11.5-17.5); White Blood Count 9.7 K/mm3 (4.8-10.8)
[2021-05-21 09:51] LABS: Blood Urea Nitrogen 26 mg/dl (9-20); Calcium 8.8 mg/dl (8.4-10.2); Carbon Dioxide 30 mmol/L (22.0-30.0); Chloride 92 mmol/L (98-107); Estimated Glomerular Filt Rate 27 ml/min (>60); GFR (African American) 33 ML/MIN (>60); Glucose 195 mg/dl (74-100); Sodium 133 mmol/L (136-145)
[2021-05-21 10:00] LABS: NT Pro Brain Natriuretic Pep. 2470 pg/mL (0-125)
--- NOTE | 2021-05-21 12:42 | ECG_ITS ---
APPROVED REPORT Exam: Resting ECG HR:86 bpm ECG Measurements Heart Rate 86 AXES [place] 132 P 19 QRSd 118 QRS -5 QT 442 T 85 QTc 528 Conclusion Normal sinus rhythm Incomplete right bundle branch block Nonspecific T wave abnormality Prolonged QT Abnormal ECG Electronically signed by : Boaz Lopez, 05/22/2021 14:29:50
[2021-05-21 13:24] LABS: Basophils # 0.1 K/mm3 (0-0.2); Basophils % 0.7 % (0.1-2.0); Chloride 93 mmol/L (98-107); Eosinophils # 0.2 K/mm3 (0.0-0.4); Eosinophils % 1.3 % (0.1-12.0); Hematocrit 47.3 % (42.0-52.0); Hemoglobin 15.5 g/dL (14.1-18.0); Lymphocytes % 24.8 % (10-50); Mean Corpuscular HGB Conc 32.8 g/dL (31.8-35.4); Mean Corpuscular Volume 91.2 fl (80-94); Mean Platelet Volume 7.8 fl (7.4-10.4); Monocytes # 0.6 K/mm3 (0.1-1.0); Monocytes % 4.9 % (1.7-9.3); Neutrophils # 8.2 K/mm3 (1.8-7.8); Neutrophils % 68.3 % (37.0-80.0); Platelet Count 440 K/mm3 (142-424); Red Blood Count 5.18 M/mm3 (4.60-6.20); Red Cell Distribution Width 15.2 % (11.5-17.5); Sodium 135 mmol/L (136-145)
[2021-05-21 13:27] LABS: Alanine Aminotransferase 27 U/L (12-78); Albumin Level 4.6 g/dl (3.5-5.0); Albumin/Globulin Ratio 1.3 (1.1-1.8); Alkaline Phosphatase 86 U/L (38-126); Aspartate Amino Transferase 32 U/L (17-59); Bilirubin,Total 0.6 mg/dl (0.2-1.3); Blood Urea Nitrogen 27 mg/dl (9-20); Carbon Dioxide 29 mmol/L (22.0-30.0); Creatinine Clearance Estimated 50 mL/min (50-200); Estimated Glomerular Filt Rate 24 ml/min (>60); GFR (African American) 29 ML/MIN (>60); Globulin 3.5 g/dL (1.3-3.2); Total Protein,Serum 8.1 g/dl (6.3-8.2)
[2021-05-21 13:28] LABS: Calcium 9.3 mg/dl (8.4-10.2); Glucose 183 mg/dl (74-100)
[2021-05-21 13:40] LABS: Troponin I 0.05 ng/ml (0.00-0.034)
--- NOTE | 2021-05-21 13:43 | HMH.EDGENADL ---
ED Disposition Clinical Impression: Acute kidney injury, Hypomagnesemia Disposition: Admitted as Observation Condition on Discharge: Fair Referrals: Heriberto Odell APRN [Primary Care Provider] - - Critical Care Critical Care Time: No Attestation: On 05/21/21, the high probability of a clinically significant, sudden or life threatening deterioration of the following system(s) required my full and direct attention, intervention and personal management. The time I documented below is in addition to time spent performing reported procedures but includes the following listed in this critical care notation. Medical Decision Making - Uziel Inquiry Pt receiving controlled substance: Yes Uziel was queried for this patient: Yes Risks and benefits of using a controlled substance: were not discussed with pt by me Vital Signs: 05/21/21 12:34 05/21/21 14:30 Temperature 99.1 F Temperature Source Oral Pulse Rate 75 Pulse Rate [Radial] 88 Respiratory Rate 18 20 Blood Pressure 120/73 Blood Pressure [Right Arm] 145/99 H Blood Pressure Mean 88 Blood Pressure Mean [Right Arm] 114 02 Sat by Pulse Oximetry 99 98 Oxygen Delivery Method Room Air - Lab Data Lab Results 05/21/21 12:45: WBC 12.0 H, RBC 5.18, Hgb 15.5, Hct 47.3, MCV 91.2, MCH 30.0, MCHC 32.8, RDW 15.2, Plt Count 440 H, MPV 7.8, Neut % (Auto) 68.3, Lymph % (Auto) 24.8, [place] % (Auto) 4.9, Eos % (Auto) 1.3, Baso % (Auto) 0.7, Neut # (Auto) 8.2 H, Lymph # (Auto) 3.0, [place] # (Auto) 0.6, Eos # (Auto) 0.2, Baso # (Auto) 0.1 05/21/21 12:45: Sodium 135 L, Potassium 4.0, Chloride 93 L, Carbon Dioxide 29, Anion Gap 17.0 H, BUN 27 H, Creatinine 2.80 H, Estimated Creat Clear 50, Estimated GFR 24 L, Est GFR ( Amer) 29 L, Glucose 183 H, Calcium 9.3, Total Bilirubin 0.6, AST 32, ALT 27, Alkaline Phosphatase 86, Troponin I 0.05 H, Total Protein 8.1, Albumin 4.6, Globulin 3.5 H, Albumin/Globulin Ratio 1.3 05/21/21 12:45: Magnesium 0.6 L 05/21/21 14:30: Urine Color Yellow, Urine Appearance Clear, Urine pH 5.0, Ur Specific [place] 1.015, Urine Protein Negative, Urine Glucose (UA) Negative, Urine Ketones Negative, Urine Blood Negative, Urine Nitrate Negative, Urine Bilirubin Negative, Urine Urobilinogen 0.2, Ur Leukocyte Esterase Negative, Urine RBC None, Urine WBC None, Ur Squamous Epith Cells None, Urine Bacteria None Result diagrams: 05/21/21 12:45 05/21/21 12:45 Orders (Tests/Meds): ED MEDICATIONS Generic Name Dose Route Start Last Admin Trade Name Freq PRN Reason Stop Dose Admin Sodium Chloride 1,000 mls @ 100 mls/hr 05/21/21 14:15 05/21/21 14:27 Sod Chlor 0.9% 1000ml Bag IV 06/20/21 14:14 100 mls/hr .Q10H CYNDEE Administration Magnesium Sulfate 2 gm/ Sodium 104 mls @ 100 mls/hr 05/21/21 14:24 Chloride IV 05/21/21 15:26 ONCE ONE Discontinued Medications Generic Name Dose Route Start Last Admin Trade Name Freq PRN Reason Stop Dose Admin Morphine Sulfate 4 mg 05/21/21 14:13 05/21/21 14:23 Morphine 4mg/Ml Syringe IV 05/21/21 14:14 4 mg ONCE ONE Administration Promethazine HCl 6.25 mg 05/21/21 14:13 05/21/21 14:23 Promethazine Hcl 25mg/Ml 1ml Vial IV 05/21/21 14:14 6.25 mg ONCE ONE Administration Sodium Chloride 25 ml 05/21/21 14:13 05/21/21 14:23 Sodium Chloride 0.9% 25ml Bag IV 05/21/21 14:14 25 ml ONCE ONE Administration - ECG Data Tracing #1 EKG interpreted by Missael Gresham MD: Rhythm: sinus Rate: 86 [place]: normal Ectopy: none Conduction: Incomplete right bundle branch block, QTc [address] Segment Changes: none T Wave Changes: none Q Waves: none No evidence of acute ischemia or injury - Physician Consults Physician Consulted: Matt Time: 15:07 Reason -: Admission Comment/Response: Agrees to admit the patient to the hospital. We discussed the patient's clinical information, including history, exam, laboratory and radiology results and ED course. Per hospital procedur
--- NOTE | 2021-05-21 14:22 | PC.NURSE ---
per zaid in lab pt Magnesium is 0.6, pt name and verified. Notified ER MD of critical results
[2021-05-21 14:23] LABS: Magnesium 0.6 mg/dl (1.6-2.3)
--- NOTE | 2021-05-21 14:27 | PC.NURSE ---
waiting maintenance controller back from Dr. Gutierrez
[2021-05-21 14:39] LABS: Microscopic, Urine URINE MICROSCOPIC (MICROSCOPIC)
[2021-05-21 14:40] LABS: Appearance,Urine CLEAR (Clear); Bilirubin,Urine Negative (Negative); Blood, Urine Negative (Negative); Color,Urine YELLOW (Yellow); Glucose,Urine (UA) Negative (Negative); Ketones,Urine Negative (Negative); Leukocyte Esterase,Urine Negative (Negative); Nitrate,Urine Negative (Negative); Protein,Urine Negative (Negative); Specific Gravity, Urine 1.015 (1.005-1.030); Urobilinogen,Urine 0.2 EU/dl (0.2)
--- NOTE | 2021-05-21 15:14 | PC.NURSE ---
Dr Gutierrez returned call
--- NOTE | 2021-05-21 15:37 | PC.NURSE ---
[facility] faxing over a medicine list on pt
[2021-05-21 15:41] LABS: Coronavirus 19, PCR Not Detected (NotDetected); Influenza A, PCR Not Detected (NotDetected); Influenza B, PCR Not Detected (NotDetected)
--- NOTE | 2021-05-21 16:56 | PC.NURSE ---
Report given to Arianne LUDWIG.
--- NOTE | 2021-05-21 18:48 | PC.NURSE ---
Patient is alert and oriented x4. Lungs are clear, bowel sounds active x4. He remains on RA w/O2 sats in the upper 90's. He ambulates independently to the bathroom. He is able to verbalize his needs. He reported pain x1 in back/abdomen rating an 8/10. Prn morphine administered per mar, relief noted on reassessment. He then reported nausea from the morphine, prn phenergan administered w/pt reporting relief on reassessment. He is currently resting w/his eyes closed.
[2021-05-22 03:56] VITALS: BP 134/84; PULSE 74; RESP 18; TEMP 36.6; O2SAT 98
--- NOTE | 2021-05-22 04:13 | PC.NURSE ---
Pt A&O. Has rested well this shift with no c/o pain. Lungs diminished, on room air. Bowel sounds x4, abd soft and nontender. no edema noted to any extremities. Pt able to ambulate independently. IV patent, NS @ 100. VSS, call light in reach, no concerns at this time.
[2021-05-22 04:58] VITALS: BMI 39.9
[2021-05-22 06:56] LABS: Anion Gap 12.2 mEq/L (5-15); Blood Urea Nitrogen 26 mg/dl (9-20); Carbon Dioxide 27 mmol/L (22.0-30.0); Chloride 99 mmol/L (98-107); Creatinine Clearance Estimated 69 mL/min (50-200); Estimated Glomerular Filt Rate 33 ml/min (>60); GFR (African American) 40 ML/MIN (>60); Glucose 145 mg/dl (74-100); Potassium 4.2 mmoL/L (3.5-5.1); Sodium 134 mmol/L (136-145)
--- NOTE | 2021-05-22 07:32 | P.CONPHA_ITS ---
[facility] VTE Monitoring - Patient Demographics Admission date: 05/22/21 Report Date: 05/22/21 Time: 07:32 Allergies/Adverse Reactions: Patient Allergies No Known Allergies Allergy (Verified 05/21/21 09:31) Height: 1.75 m Weight: 122.13 kg Patient Problems: Current Active Problems (Last Updated 05/09/21 @ 10:02 by Elisa Gonzalez RN) Acute kidney injury (Acute) Hypomagnesemia (Chronic) - VTE Risk Labs: VTE Related Lab Results Hgb 15.5 g/dL (14.1-18.0) 05/21/21 12:45 Hct 47.3 % (42.0-52.0) 05/21/21 12:45 Plt Count 440 K/mm3 (142-424) H 05/21/21 12:45 BUN 26 mg/dl (9-20) H 05/22/21 06:22 Creatinine 2.10 mg/dl (0.66-1.25) H D 05/22/21 06:22 Estimated Creat Clear 69 mL/min (50-200) 05/22/21 06:22 Was VTE Risk Assessment Performed: Yes VTE Score: 8 VTE Risk Level: Moderate Risk Clinical Trial Participant: No - Prophylaxis VTE Prophylaxis Ordered?: Yes Types of VTE Prophylaxis: TEDS Knee High, Pharmacological (XARELTO)
[2021-05-22 08:00] VITALS: BP 136/72; PULSE 70; RESP 18; TEMP 36.6; O2SAT 94
--- NOTE | 2021-05-22 08:29 | XR_ITS ---
PROCEDURE: XR CHEST 2V CLINICAL HISTORY: chf COMPARISON: No exams were available for comparison FINDINGS: The cardiomediastinal silhouette and pulmonary vascularity are within normal limits. The lungs are clear without infiltrates, suspicious nodules, or pleural effusions. No acute bony abnormalities. IMPRESSION: No acute findings. Dictated by: Tracey Brown 05/22/2021 10:25 Tracey Brown in [place] 05/22/2021 10:25
--- NOTE | 2021-05-22 08:29 | CA_ITS ---
APPROVED REPORT EXAM: Comprehensive 2D, Doppler, and color-flow Echocardiogram [place] Brushing Machine Operator: Eda Solis CRT Ht: 5 ft 8 in Wt: 269lbs BSA: 2.32 BP: 120/73 mmHg Indications: Congestive Heart Failure, COPD, Diabetes, CAD, Hyperlipidemia, Cardiomyopathy, Hypertension/HDD, stent 2D Dimensions LVOT 2.01 cm (M/F) 1.5-2.5 LA Volume 77.30 mL LA Volume Index 37.20 mL/m2 (M/F) 16-34 M-Mode Dimensions RVDd 3.37 cm (0.9-2.6) LA Diam 4.16 cm (1.9-4.0) LVDd 6.22 cm (3.5-5.7) Ao Diam 4.30 cm (2.0-3.7) LVDs 5.10 cm (3.5-5.7) IVSd 1.37 cm (0.6-1.1) PWd 0.88 cm (0.6-1.1) EF (Teich) 36.60% FS 18.00% EDV (Teich) 195.40 mL TAPSE 2.20 (<1.7) ESV (Teich) 123.80 mL LV Diastology E Decel Time 207.00 (160-240 msec) E/A Ratio 0.93 MED E' 8.20 (< 7 cm/sec) MED A' 11.00 cm/s E'/MED E' Ratio 8.21 (>14) LAT E' 9.10 (<10 cm/sec) LAT A' 10.50 cm/s E/LAT E' Ratio 7.40 (>14) Aortic Valve AO Peak GR. 6.80 mmHg Mitral Valve MV A Velocity 72.00 (40-130 cm/s) E/A Ratio 0.93 MV Decel. Time 207.00 (160-240 ms) Pulmonary Valve PV Peak Velocity 90.00 (50-150 cm/s) Tricuspid Valve TR P. Velocity 165.00 cm/s RAP Estimate 10.00 mmHg RVSP 20.80 mmHg Left Ventricle Technically difficult study because of the patient factors and poor acoustic windows, repeat study with Definity contrast is recommended, left atrium is mildly enlarged, left ventricle is normal size, mild concentric left ventricular hypertrophy, visually estimated ejection fraction is probably 45%, there is no obvious regional wall motion abnormality, endocardial surfaces are poorly visualized. Right Ventricle Right atrium and right ventricle are normal size and contractility. Aortic Valve Aortic valve is minimally thickened and fibrosed, there is no aortic stenosis or aortic insufficiency. Mitral Valve Mitral valve grossly normal, there is trace mitral regurgitation. Tricuspid Valve Tricuspid valve grossly normal, there is trace tricuspid regurgitation, tricuspid regurgitation jet velocity is inadequate for calculation of the right ventricular systolic pressure. Pulmonic Valve Pulmonic valve is poorly visualized. Great Vessels Aortic root is normal size. Pericardium No significant pericardial effusion noted. Conclusion 1. Normal left ventricular size, visually estimated ejection fraction 45%, repeat study with Definity contrast is recommended to assess segmental wall motion. Grade 1 diastolic dysfunction seen without tissue Doppler evidence of raise left atrial pressure 2. Trace mitral and tricuspid regurgitation. 3. No significant pericardial effusion noted. Electronically signed by : Corey Juarez, 05/22/2021 15:17:45
--- NOTE | 2021-05-22 08:49 | PC.NURSE ---
0729 - Elana from lab notified me patients magnesium was 1.0, verified w/name and . 0750 - Landon Person APRN notified during rounds.
--- NOTE | 2021-05-22 09:01 | CA_ITS ---
APPROVED REPORT [employer] Cook: Molly Stephens RVT Study Quality: Adequate Indications: worsening cret.CHINTAN Risk Factors Hypertension Obesity Diabetes Smoking Renal Artery Doppler Mid (R) 148.1/ cm/sec Distal (R) 181.8/ cm/sec Renal Aorta Ratio (R) 2.38 Segmental A. (R) 27.8/7.9 cm/sec RI: 0.71 Segmental A. Sup (R) 25.1/9.3 cm/sec Segmental A. Mid (R) 27.8/7.9 cm/sec Segmental A. Inf (R) 26.5/7.3 cm/sec Mid (L) 124.0/ cm/sec Distal (L) 127.1/ cm/sec Renal Aorta Ratio (L) 1.67 Segmental A. (L) 42.9/13.1 cm/sec RI: 0.69 Segmental A. Sup (L) 25.2/7.5 cm/sec Segmental A. Mid (L) 42.9/13.1 cm/sec Segmental A. Inf (L) 32.0/9.3 cm/sec Renal Measurements Kidney Size (R) 12.4x6.6 cm Cortical Thickness (R) 1.7 cm Kidney Size (L) 11.3x7.8 cm Cortical Thickness (L) 1.7 cm Findings Study suggests less than 60% stenosis of the right renal artery. Study suggests no evidence of stenosis of the left renal artery. 1.7 X 2.2 cm hypoechoic nodule seen in the lower pole right kidney, ? cyst. Conclusion Study suggests less than 60% stenosis of the right renal artery. Study suggests no evidence of stenosis of the left renal artery. 1.7 X 2.2 cm hypoechoic nodule seen in the lower pole right kidney, ? cyst. Electronically signed by : Tracey Brown, 05/23/2021 16:12:20
--- NOTE | 2021-05-22 09:51 | HMH.CNCARD ---
History of Present Illness Consult date: 05/22/21 Requesting physician: Rich Clement Chief complaint: fatigue History of present illness: This is a 56-year-old white gentleman who was admitted to the hospital from the emergency department after being sent to the emergency department from cardiology clinic yesterday for abnormal labs. The patient had an elevated creatinine at 2.5 and his labs appeared to show that he was dehydrated which was most likely stemming from recently being put on Lasix and lisinopril. The patient also had an elevated BNP. He denies any chest pain or pressure. He denies any shortness of breath or edema. He states that he is just been really fatigued and had no energy. He was having low back pain that radiated to his costal margins as well as nausea. He states that he just did not feel well. Lab work showed that he was dehydrated and the patient was referred to the emergency department for hydration. This morning he states that he does feel little bit better. He is still having a little bit of the low back pain and still little bit fatigued but his symptoms are overall better. He denies any fever, chills, vomiting, diarrhea, PND or orthopnea. [facility] History I have reviewed the patient's past medical history: Yes Medical History: Reports:: Anxiety, Arrhythmia, Atrial Fibrillation, Cardiomyopathy, Congestive Heart Failure, Coronary Artery Disease, Deep Vein Thrombosis, Depression, Diabetes Mellitus Type 2, Hyperlipidemia, Hypertension, Lung Disease, Myocardial Infarction, Renal Disease Denies:: Cancer, Diabetes Mellitus Type 1, Internal Pacemaker, MRSA, Seizures *Have you ever received a pneumonia vaccine?: Yes *Have you received a flu vaccine this season?: Yes Other Medical History: Reports: Anemia, Glaucoma, Hypothyroidism, Sinus Problems, Thyroid Disease, Other. Denies: Blood Transfusion Reaction Laterality Cases: Left: Other, Bilateral: Tonsillectomy Other Surgeries: Yes: No Previous Surgery, Angiogram, Angioplasty, Cardiac Catheterization, Cardiac Surgery, Cholecystectomy, Colonoscopy, Coronary Stent, Other. No: Pacemaker Amputation: No Fractures: No (femur) - *Social History Last grade of school completed: High school graduate Smoking Status: Current every day smoker Tobacco Type: cigarettes # Packs/Day (cigarettes): 1 #Yrs smoked (if former smoker): 25 Alcohol Intake: current Alcohol Intake Frequency:: holidays/special occasions only Substance Use Type: marijuana *Occupational Status:: disabled Housing: house Household Members: none *Travel in the last 8 weeks: None - Psychiatric History Pschychiatric History:: Reports:: Anxiety, Depression Family Hx:: Cancer, Diabetes, Heart Attack, Hypertension Meds Home Medications Medication Instructions Recorded Confirmed Type Nitroglycerin 0.4 mg SL NEEDED PRN 11/11/20 05/21/21 History Pantoprazole Sodium 40 mg PO DAILY 11/11/20 05/21/21 History loratadine 10 mg disintegrating 10 mg PO DAILY PRN #30 tab 01/29/21 05/21/21 Rx tablet sildenafil 50 mg tablet 50 mg PO DAILY PRN #30 tab 01/29/21 05/21/21 Rx Fluticasone Propionate 1 spray INTRANASAL DAILY 03/10/21 05/21/21 History clopidogrel 75 mg tablet 75 mg PO DAILY #90 tab 03/11/21 05/21/21 Rx albuterol sulfate 90 mcg/actuation 2 inh INHALATION Q4-6H PRN #1 each 04/30/21 05/21/21 Rx breath activated powder inhaler cholecalciferol (vitamin D3) 125 5,000 unit PO DAILY #90 cap 04/30/21 05/21/21 Rx mcg (5,000 unit) capsule furosemide 40 mg tablet 40 mg PO BID tab 04/30/21 05/22/21 History atorvastatin 10 mg tablet 10 mg PO HS tab 05/07/21 05/22/21 History bisoprolol fumarate 10 mg tablet 10 mg PO DAILY tab 05/09/21 05/21/21 History colchicine 0.6 mg tablet 0.6 mg PO Q48H tab 05/09/21 05/22/21 History levothyroxine 50 mcg tablet 50 mcg PO DAILY tab 05/09/21 05/21/21 History metformin 500 mg tablet 500 mg PO BID tab 05/09/21 05/21/21 History Budesonide/Formoterol Fumarate 2 puff IH BID 05/21/21 05/22/21 H
[2021-05-22 12:11] LABS: POC Glucose,Bedside 125 (70-110)
--- NOTE | 2021-05-22 12:16 | PC.NURSE ---
Pt refused allopurinol and colchicine this am stating I only take those PRN and requested they be dc'd. He also refused his bisoprolol and requested them to be retimed to be taken at night. Bisoprolol was retimed and protonix retimed to patients home schedule per his request. Penny Odell APRN notified that patient had refused colchicine and allopurinol, he stated that patient needed to take them and to not dc them. Pt educated and agreeable to take now.
--- NOTE | 2021-05-22 13:39 | HMH.HP ---
*Admission Date: 05/22/21 *Chief complaint: elevated cre *History of present illness: 56-year-old male who was admitted to the hospital from the emergency department after being sent to the emergency department from cardiology clinic yesterday for abnormal labs. The patient had an elevated creatinine at 2.5 and his labs appeared to show that he was dehydrated which was most likely stemming from recently being put on Lasix and lisinopril. The patient also had an elevated BNP. He denies any chest pain or pressure. He denies any shortness of breath or edema. He states that he is just been really fatigued and had no energy. He was having low back pain that radiated to his costal margins as well as nausea. He states that he just did not feel well. Lab work showed that he was dehydrated and the patient was referred to the emergency department for hydration. This morning he states that he does feel little bit better. He is still having a little bit of the low back pain and still little bit fatigued but his symptoms are overall better. He denies any fever, chills, vomiting, diarrhea, PND or orthopnea.- per cardiology [facility] History I have reviewed the patient's past medical history: Yes Medical History: Reports:: Anxiety, Arrhythmia, Atrial Fibrillation, Cardiomyopathy, Congestive Heart Failure, Coronary Artery Disease, Deep Vein Thrombosis, Depression, Diabetes Mellitus Type 2, Hyperlipidemia, Hypertension, Lung Disease, Myocardial Infarction, Renal Disease Denies:: Cancer, Diabetes Mellitus Type 1, Internal Pacemaker, MRSA, Seizures *Have you ever received a pneumonia vaccine?: Yes *Have you received a flu vaccine this season?: Yes Other Medical History: Reports: Anemia, Glaucoma, Hypothyroidism, Sinus Problems, Thyroid Disease, Other. Denies: Blood Transfusion Reaction Laterality Cases: Left: Other, Bilateral: Tonsillectomy Other Surgeries: Yes: No Previous Surgery, Angiogram, Angioplasty, Cardiac Catheterization, Cardiac Surgery, Cholecystectomy, Colonoscopy, Coronary Stent, Other. No: Pacemaker Amputation: No Fractures: No (femur) - *Social History Last grade of school completed: High school graduate Smoking Status: Current every day smoker Tobacco Type: cigarettes # Packs/Day (cigarettes): 1 #Yrs smoked (if former smoker): 25 Alcohol Intake: current Alcohol Intake Frequency:: holidays/special occasions only Substance Use Type: marijuana *Occupational Status:: disabled Housing: house Household Members: none *Travel in the last 8 weeks: None - Psychiatric History Pschychiatric History:: Reports:: Anxiety, Depression Family Hx:: Cancer, Diabetes, Heart Attack, Hypertension Review of Systems - Review of Systems Review of systems:: pertinent systems reviewed and negative unless documented below - Constitutional Reports weakness, Denies body ache(s), Denies fatigue - Eyes Denies dry eyes - ENT Denies throat swelling - *Cardiovascular Denies chest pain at rest, Denies lightheadedness - *Respiratory Denies cough, Denies coughing up blood - *Gastrointestinal Reports abdominal pain, Reports nausea - *Genitourinary Reports urinary hesitancy, Denies urinary frequency - *Musculoskeletal Denies joint pain - Integumentary/Breasts Denies bleeding lesions - *Neurologic Reports weakness, Denies abnormal hearing - Psychiatric Denies behavioral changes - Endocrine Denies excessive sweating - Hematologic/Lymphatic Denies easy bruising - Allergic/Immunologic Denies itchy eyes Meds Home Medications Medication Instructions Recorded Confirmed Type Nitroglycerin 0.4 mg SL NEEDED PRN 11/11/20 05/21/21 History Pantoprazole Sodium 40 mg PO DAILY 11/11/20 05/21/21 History loratadine 10 mg disintegrating 10 mg PO DAILY PRN #30 tab 01/29/21 05/21/21 Rx tablet sildenafil 50 mg tablet 50 mg PO DAILY PRN #30 tab 01/29/21 05/21/21 Rx Fluticasone Propionate 1 spray INTRANASAL DAILY 03/10/21 05/21/21 History clopido
--- NOTE | 2021-05-22 14:41 | PC.NURSE ---
Alert and oriented x4. Lungs are clear but diminished. He remains on RA w/O2 sats > 93%. He utilizes a urinal at bedside or ambulates independently to the bathroom. Urine is clear and straw in color. Treated x1 thus far w/morphine for back/abd pain. Relief noted on reassessment. Appetite is good. IV is patent and infusing NS @ 150mls/hr. No change from morning assessment.
--- NOTE | 2021-05-22 15:02 | PC.NURSE ---
Pt nicotine patch fell off so replaced w/new one
[2021-05-22 16:00] VITALS: BP 124/78; PULSE 75; RESP 18; TEMP 36.6; O2SAT 99
[2021-05-22 16:47] LABS: POC Glucose,Bedside 162 (70-110)
[2021-05-22 20:00] VITALS: BP 126/62; PULSE 74; RESP 18; TEMP 37; O2SAT 98
[2021-05-22 21:31] LABS: POC Glucose,Bedside 183 (70-110)
[2021-05-23 04:00] VITALS: BP 137/91; PULSE 77; RESP 18; TEMP 36.4; O2SAT 91
[2021-05-23 05:00] VITALS: BMI 40.6
--- NOTE | 2021-05-23 05:55 | PC.NURSE ---
shift summary patient has had uneventful shift. has requested pain medication twice this shift. breath sounds clear throughout, radial pulse palpated and regular. voiding yellow urine per urinal.
[2021-05-23 06:25] LABS: Basophils # 0.1 K/mm3 (0-0.2); Eosinophils # 0.1 K/mm3 (0.0-0.4); Hematocrit 39.3 % (42.0-52.0); Hemoglobin 13.1 g/dL (14.1-18.0); Lymphocytes # 2.3 K/mm3 (0.7-4.5); Lymphocytes % 34.5 % (10-50); Mean Corpuscular HGB Conc 33.2 g/dL (31.8-35.4); Mean Corpuscular Hemoglobin 30.5 pg (27.0-31.2); Mean Platelet Volume 7.2 fl (7.4-10.4); Monocytes # 0.5 K/mm3 (0.1-1.0); Monocytes % 6.9 % (1.7-9.3); Neutrophils # 3.7 K/mm3 (1.8-7.8); Neutrophils % 55.4 % (37.0-80.0); Platelet Count 298 K/mm3 (142-424); Red Blood Count 4.27 M/mm3 (4.60-6.20); Red Cell Distribution Width 15.2 % (11.5-17.5); White Blood Count 6.8 K/mm3 (4.8-10.8)
[2021-05-23 06:32] LABS: POC Glucose,Bedside 154 (70-110)
[2021-05-23 06:43] LABS: Anion Gap 9.8 mEq/L (5-15); Blood Urea Nitrogen 21 mg/dl (9-20); Calcium 7.7 mg/dl (8.4-10.2); Carbon Dioxide 26 mmol/L (22.0-30.0); Chloride 105 mmol/L (98-107); Creatinine Clearance Estimated 62 mL/min (50-200); Estimated Glomerular Filt Rate 57 ml/min (>60); GFR (African American) 69 ML/MIN (>60); Glucose 156 mg/dl (74-100); Potassium 4.8 mmoL/L (3.5-5.1); Sodium 136 mmol/L (136-145)
[2021-05-23 07:59] LABS: Magnesium 1.7 mg/dl (1.6-2.3)
[2021-05-23 08:00] VITALS: BP 121/76; PULSE 74; RESP 18; TEMP 36.8; O2SAT 95
--- NOTE | 2021-05-23 08:49 | HMH.DCSUM ---
General - General Admission date:: 05/21/21 Discharge date: 05/23/21 HPI HPI: 56-year-old male who was admitted to the hospital from the emergency department after being sent to the emergency department from cardiology clinic yesterday for abnormal labs. The patient had an elevated creatinine at 2.5 and his labs appeared to show that he was dehydrated which was most likely stemming from recently being put on Lasix and lisinopril. The patient also had an elevated BNP. He denies any chest pain or pressure. He denies any shortness of breath or edema. He states that he is just been really fatigued and had no energy. He was having low back pain that radiated to his costal margins as well as nausea. He states that he just did not feel well. Lab work showed that he was dehydrated and the patient was referred to the emergency department for hydration. This morning he states that he does feel little bit better. He is still having a little bit of the low back pain and still little bit fatigued but his symptoms are overall better. He denies any fever, chills, vomiting, diarrhea, PND or orthopnea.- per cardiology Hospital Course Hospital Course: Laboratory Tests 05/21/21 05/21/21 05/21/21 08:50 08:50 12:45 WBC 9.7 12.0 H RBC 5.07 5.18 Hgb 15.2 15.5 Hct 45.9 47.3 MCV 90.6 91.2 MCH 29.9 30.0 MCHC 33.0 32.8 RDW 15.1 15.2 Plt Count 437 H 440 H MPV 7.4 7.8 Neut % (Auto) 64.1 68.3 Lymph % (Auto) 28.1 24.8 [place] % (Auto) 5.5 4.9 Eos % (Auto) 1.5 1.3 Baso % (Auto) 0.7 0.7 Neut # (Auto) 6.2 8.2 H Lymph # (Auto) 2.7 3.0 [place] # (Auto) 0.5 0.6 Eos # (Auto) 0.2 0.2 Baso # (Auto) 0.1 0.1 Sodium 133 L Potassium 5.0 Chloride 92 L Carbon Dioxide 30 Anion Gap 16.0 H BUN 26 H Creatinine 2.50 H Estimated Creat Clear Estimated GFR 27 L Est GFR ( Amer) 33 L Glucose 195 H POC Glucose Calcium 8.8 Magnesium Total Bilirubin AST ALT Alkaline Phosphatase Troponin I NT-Pro-B Natriuret Pep 2470 H Total Protein Albumin Globulin Albumin/Globulin Ratio Urine Color Urine Appearance Urine pH Ur Specific [place] Urine Protein Urine Glucose (UA) Urine Ketones Urine Blood Urine Nitrate Urine Bilirubin Urine Urobilinogen Ur Leukocyte Esterase Urine RBC Urine WBC Ur Squamous Epith Cells Urine Bacteria SARS-CoV-2 (PCR) Influenza A Untype (PCR) Influenza Type B (PCR) 05/21/21 05/21/21 05/21/21 12:45 12:45 14:30 WBC RBC Hgb Hct MCV MCH MCHC RDW Plt Count MPV Neut % (Auto) Lymph % (Auto) [place] % (Auto) Eos % (Auto) Baso % (Auto) Neut # (Auto) Lymph # (Auto) [place] # (Auto) Eos # (Auto) Baso # (Auto) Sodium 135 L Potassium 4.0 Chloride 93 L Carbon Dioxide 29 Anion Gap 17.0 H BUN 27 H Creatinine 2.80 H Estimated Creat Clear 50 Estimated GFR 24 L Est GFR ( Amer) 29 L Glucose 183 H POC Glucose Calcium 9.3 Magnesium 0.6 L Total Bilirubin 0.6 AST 32 ALT 27 Alkaline Phosphatase 86 Troponin I 0.05 H NT-Pro-B Natriuret Pep Total Protein 8.1 Albumin 4.6 Globulin 3.5 H Albumin/Globulin Ratio 1.3 Urine Color Yellow Urine Appearance Clear Urine pH 5.0 Ur Specific [place] 1.015 Urine Protein Negative Urine Glucose (UA) Negative Urine Ketones Negative Urine Blood Negative Urine Nitrate Negative Urine Bilirubin Negative Urine Urobilinogen 0.2 Ur Leukocyte Esterase Negative Urine RBC None Urine WBC None Ur Squamous Epith Cells None Urine Bacteria None SARS-CoV-2 (PCR) Influenza A Untype (PCR) Influenza Type B (PCR) 05/21/21 05/22/21 05/22/21 15:33 06:22 12:02 WBC RBC Hgb Hct MCV MCH MCHC RDW
[2021-05-23 08:51] VITALS: RESP 16
--- NOTE | 2021-05-23 09:57 | HMH.PNCARD ---
Subjective Date: 05/23/21 Time: 09:57 Principal diagnosis: CHINTAN Interval history: 56-year-old white male in bed in no acute distress. Some discomfort of the right knee area due to Langley's cyst which he is having evaluated next week in [place]. Patient's acute kidney injury related to her nausea and vomiting in combination with lisinopril and Lasix therapy for his cardiomyopathy. Renal functions have improved with IV fluids and holding Lasix and lisinopril during hospitalization. Echocardiogram shows EF of 45% which is consistent with prior studies. Renal duplex is pending. Exam Vital signs and Labs for Last 24 Hours: Temp Pulse Resp BP Pulse Ox 98.3 F 74 16 121/76 95 05/23/21 08:00 05/23/21 08:00 05/23/21 08:51 05/23/21 08:00 05/23/21 08:00 Laboratory Results - last 24 hr 05/22/21 12:02: POC Glucose 125 H 05/22/21 16:40: POC Glucose 162 H 05/22/21 21:10: POC Glucose 183 H 05/23/21 05:38: WBC 6.8 D, RBC 4.27 L, Hgb 13.1 L, Hct 39.3 L, MCV 92.0, MCH 30.5, MCHC 33.2, RDW 15.2, Plt Count 298 D, MPV 7.2 L, Neut % (Auto) 55.4, Lymph % (Auto) 34.5, [place] % (Auto) 6.9, Eos % (Auto) 2.0, Baso % (Auto) 1.0, Neut # (Auto) 3.7, Lymph # (Auto) 2.3, [place] # (Auto) 0.5, Eos # (Auto) 0.1, Baso # (Auto) 0.1 05/23/21 05:38: Sodium 136, Potassium 4.8, Chloride 105, Carbon Dioxide 26, Anion Gap 9.8, BUN 21 H, Creatinine 1.30 H D, Estimated Creat Clear 62, Estimated GFR 57 L, Est GFR ( Amer) 69 D, Glucose 156 H, Calcium 7.7 L 05/23/21 05:38: Magnesium 1.7 D 05/23/21 06:13: POC Glucose 154 H I & O for Last 24 hours: Intake & Output 05/20/21 05/21/21 05/22/21 05/23/21 11:59 11:59 11:59 11:59 Intake Total 2178 / 2178 5733 / 5733 Output Total 1385 / 1385 1825 / 1825 Balance 793 / 793 3908 / 3908 Weight 269 lb 4 oz 274 lb 8 oz - Constitutional no acute distress - *Routine HEENT Exam Head: Present: normocephalic Eye: Present: EOMI, PERRL ENT: Present: mucous membranes moist - *Routine Neck Exam Present: supple. Absent: lymphadenopathy - *Routine Respiratory Exam Present: CTA bilaterally - *Routine Cardiovascular Exam Present: RRR - *Routine Abdominal Exam Present: soft, normoactive bowel sounds. Absent: tenderness - *Routine Extremities Exam Absent: cyanosis, clubbing, edema - *Routine Skin Exam Present: warm. Absent: rash - *Routine Neurological Exam Present: alert, oriented X3 Progress Note: A&P (1) Acute kidney injury Status: Acute (2) CKD (chronic kidney disease) Status: Chronic (3) Coronary artery disease Status: Chronic (4) Diabetes Status: Chronic (5) Hyperlipidemia Status: Chronic (6) Hypertension Status: Chronic (7) Cardiomyopathy Status: Acute (8) Paroxysmal atrial fibrillation Status: Acute Assessment and Plan for All Diagnoses:: 1. Acute kidney injury related to nausea and vomiting with dehydration on top of lisinopril and Lasix therapy. Renal functions have improved to baseline. Patient is being discharged home today 2. Ischemic cardiomyopathy with prior coronary stenting, stable on current medical therapy. 3. Hypertension, controlled 4. Hyperlipidemia, on statin therapy 5. Diabetes mellitus, treatment per PCP. 6. PAF, on long-term Xarelto therapy. Okay for discharge home from cardiology standpoint Home medication recommendations Bisoprolol 10 mg daily Lisinopril 2.5 mg daily (half of his dose that he was taking prior to admission) Lasix 20 mg daily (half of his dose that he was taking prior to admission) Xarelto 20 mg daily Plavix 75 mg daily Atorvastatin 10 mg daily Patient will need a BMP in 1 week and follow-up in our office in 2 weeks.
== END 2021-05-23 10:07 | disposition home or self-care (01) ==
LOC: ER 14:20 → 2ND 15:44
PROVIDERS: Nurse Practitioner Family; Physician Assistant; Admitting Provider Emergency Medicine; Emergency Provider Emergency Medicine; PCP Nurse Practitioner Family; Visit Provider Emergency Medicine
DX: N17.9 Acute kidney failure, unspecified (principal); E86.0 Dehydration; E83.42 Hypomagnesemia; I48.91 Unspecified atrial fibrillation; Z79.01 Long term (current) use of anticoagulants; I42.9 Cardiomyopathy, unspecified; I50.9 Heart failure, unspecified; I25.10 Atherosclerotic heart disease of native coronary artery without angina pectoris; Z86.718 Personal history of other venous thrombosis and embolism; I25.2 Old myocardial infarction; Z95.5 Presence of coronary angioplasty implant and graft; Z87.891 Personal history of nicotine dependence; E03.9 Hypothyroidism, unspecified; I13.0 Hypertensive heart and chronic kidney disease with heart failure and stage 1 through stage 4 chronic kidney disease, or unspecified chronic kidney disease; Z79.84 Long term (current) use of oral hypoglycemic drugs; E11.22 Type 2 diabetes mellitus with diabetic chronic kidney disease; N18.9 Chronic kidney disease, unspecified
CPT/HCPCS: 36415; 71046; 80048; 80053; 81001; 82962; 83735; 83880; 84484; 85025; 93005; 93306; 93976; 96365; 96367; 96375; 99284; G0378; U0003

== ENCOUNTER 2021-06-02 12:12 | Outpatient (CLI) | payer OTHER, SELFPAY ==
[2021-06-02 12:14] VITALS: BMI 40.4
[2021-06-02 12:32] VITALS: BP 100/60; PULSE 74; RESP 18; TEMP 36.3; O2SAT 96
[2021-06-02 12:38] LABS: Chloride 101 mmol/L (98-107); Potassium 4.8 mmoL/L (3.5-5.1); Sodium 138 mmol/L (136-145)
[2021-06-02 12:40] LABS: Blood Urea Nitrogen 31 mg/dl (9-20); Creatinine Clearance Estimated 82 mL/min (50-200); Estimated Glomerular Filt Rate 39 ml/min (>60); GFR (African American) 48 ML/MIN (>60)
[2021-06-02 12:41] LABS: Calcium 8.6 mg/dl (8.4-10.2); Carbon Dioxide 26 mmol/L (22.0-30.0); Glucose 117 mg/dl (74-100)
[2021-06-02 12:45] LABS: Magnesium 0.6 mg/dl (1.6-2.3)
[2021-06-02 13:25] LABS: Anion Gap 15.8 mEq/L (5-15)
[2021-06-02 13:38] VITALS: BP 118/72; PULSE 71; RESP 16; TEMP 36.4; O2SAT 96
--- NOTE | 2021-06-02 14:54 | PC.NURSE ---
1240 Checked lab values/ noted that magnesium 0.6/ lab result was called to cardiology/Ricky/Barbara per [employer] at 1232. Will check with MD office for any further orders 1315 Spoke with Yvonne in Dr. García's/Barbara's office regarding Mag 0.6 / informed this level was prior to today's infusion of Magnesium 2 grams IV as ordered. Awaiting any new orders.
== END 2021-06-02 13:41 | disposition home or self-care (01) ==
LOC: INF 12:12
PROVIDERS: Visit Provider Physician Assistant
DX: E83.42 Hypomagnesemia (principal)
CPT/HCPCS: 80048; 83735; 96365

== ENCOUNTER 2021-06-16 13:13 | Outpatient (CLI) | payer OTHER, SELFPAY ==
[2021-06-16 13:16] VITALS: BMI 40.1
[2021-06-16 13:37] VITALS: BP 108/59; PULSE 78; RESP 18; TEMP 36.3; O2SAT 97
[2021-06-16 13:56] LABS: Anion Gap 13.9 mEq/L (5-15); Blood Urea Nitrogen 24 mg/dl (9-20); Carbon Dioxide 26 mmol/L (22.0-30.0); Chloride 102 mmol/L (98-107); Creatinine Clearance Estimated 104 mL/min (50-200); Estimated Glomerular Filt Rate 53 ml/min (>60); GFR (African American) 64 ML/MIN (>60); Glucose 141 mg/dl (74-100); Potassium 4.9 mmoL/L (3.5-5.1); Sodium 137 mmol/L (136-145)
[2021-06-16 14:07] VITALS: BP 110/55; PULSE 77; RESP 18; O2SAT 98
[2021-06-16 14:09] LABS: Magnesium 0.9 mg/dl (1.6-2.3)
--- NOTE | 2021-06-16 14:11 | PC.NURSE ---
Angie Lovelace from lab called RN at 1407 on 06/16/21 to report magnesium level as 0.9. RN repeated and verified pt name, , and lab value. Result reported to cardiology office Harish Martins, no new orders noted, pt already receiving iv magnesium infusion.
[2021-06-16 14:47] VITALS: BP 105/56; PULSE 77; RESP 18; O2SAT 98
== END 2021-06-16 14:49 | disposition home or self-care (01) ==
LOC: INF 13:13
PROVIDERS: PCP Nurse Practitioner Family; Visit Provider Internal Medicine
DX: E83.42 Hypomagnesemia (principal)
CPT/HCPCS: 80048; 83735; 96365

== ENCOUNTER → 2021-06-17 13:57 | Outpatient (CLI) | payer OTHER, SELFPAY ==
--- NOTE | 2021-06-17 14:08 | MR_ITS ---
PROCEDURE: MR KNEE RT WO CON CLINICAL INDICATION: RT knee pain Entire knee swelling COMPARISON: CR XR KNEE RT 4V from 05/05/2021 TECHNIQUE: Routine multiplanar multi echo sequences are performed without gadolinium enhancement. FINDINGS: The cruciate ligaments are. There is diffuse subcutaneous soft tissue swelling. Medial collateral ligament has an unremarkable appearance. There does appear to be a partial tear involving the posterior aspect of the fibular collateral ligament. Suspect tendinopathy/tendinosis of the inferior aspect of the patellar tendon. There are discontinuous fibers involving the central and anterior aspect of the quadriceps tendon without significant edema and could be related to an old tear. A small free edge tear is suspected involving the posterior horn of the lateral meniscus posteriorly. The medial meniscus has an unremarkable appearance. The patellar cartilage is preserved. There is a prominent complex Langley's cyst noted which extends into the medial to the medial head of the gastrocnemius measuring approximately 6 by 1.8 cm with an additional component anterior to the medial head of the gastrocnemius at 5.7 x 1 cm. Debris is present within the cyst. No bone bruise or fracture. There is very slight increased T2 signal of the lateral femoral condyle laterally. IMPRESSION: There appears to be a incomplete tear of the fibula collateral ligament posteriorly. Small horizontal tear extending to the posterior free edge of the posterior horn of the lateral meniscus. Diffuse edema about the knee with medium size knee joint effusion and prominent complex Langley's cyst. Suspect old partial tear of the quadriceps tendon centrally and anteriorly Dictated by: Mathew Helton MD 06/18/2021 11:49 Mathew Helton MD in [place] 06/18/2021 11:49
--- NOTE | 2021-06-17 14:38 | XR_ITS ---
PROCEDURE: XR SHOULDER LT MIN 2V CLINICAL INDICATION: Lt shoulder pain COMPARISON: No exams were available for comparison FINDINGS: Osteoarthritic changes are present involving the acromioclavicular and glenohumeral joint. A small calcific density measuring 4 mm is present along the lower aspect of the glenoid and could be due to an ununited ossification center, loose body, or an old avulsion fracture. No significant subacromial stenosis. IMPRESSION: Osteoarthritis with ununited ossification center versus loose body or old fracture of the infra glenoid region Dictated by: Mathew Helton MD 06/17/2021 16:05 Mathew Helton MD in [place] 06/17/2021 16:05
--- NOTE | 2021-06-17 14:38 | XR_ITS ---
PROCEDURE: XR HIP RT 2-3V W/PELVIS CLINICAL INDICATION: BL hip pain COMPARISON: CR XR HIP LT 2-3V W/PELVIS from 06/17/2021 FINDINGS: No obvious definite fracture or dislocation. There are mild osteoarthritic changes of the right hip. No lytic or blastic change. IMPRESSION: Mild osteoarthritis otherwise negative Dictated by: Mathew Helton MD 06/19/2021 12:11 Mathew Helton MD in [place] 06/19/2021 12:11
--- NOTE | 2021-06-17 14:38 | XR_ITS ---
PROCEDURE: XR HIP LT 2-3V W/PELVIS CLINICAL INDICATION: BL hip pain COMPARISON: CR PEL1V XR pelvis 1-2V from 05/11/2018 FINDINGS: There are mild osteoarthritic changes of both hips. A intramedullary riri is present in the left femur with an old healed femoral fracture with callus formation involving the proximal mid to distal aspect of the left femur. The intramedullary riri has an unremarkable appearance. Vascular calcification noted. IMPRESSION: Mild osteoarthritis of the hips Dictated by: Mathew Helton MD 06/17/2021 16:03 Mathew Helton MD in [place] 06/17/2021 16:03
== END ==
PROVIDERS: PCP Nurse Practitioner Family; Visit Provider Orthopaedic Surgery
DX: M25.561 Pain in right knee (principal); M25.551 Pain in right hip; M25.552 Pain in left hip; M25.512 Pain in left shoulder
CPT/HCPCS: 73030; 73502; 73721

== ENCOUNTER 2021-06-23 12:21 | Outpatient (CLI) | payer OTHER, SELFPAY ==
[2021-06-23 12:38] VITALS: BMI 39.9
[2021-06-23 12:58] VITALS: BP 102/77; PULSE 79; RESP 18; TEMP 36.6; O2SAT 97
[2021-06-23 13:38] LABS: Chloride 102 mmol/L (98-107)
[2021-06-23 13:39] LABS: Potassium 5.2 mmoL/L (3.5-5.1); Sodium 136 mmol/L (136-145)
[2021-06-23 13:42] LABS: Anion Gap 16.2 mEq/L (5-15); Blood Urea Nitrogen 30 mg/dl (9-20); Calcium 8.8 mg/dl (8.4-10.2); Carbon Dioxide 23 mmol/L (22.0-30.0); Creatinine Clearance Estimated 85 mL/min (50-200); Estimated Glomerular Filt Rate 42 ml/min (>60); GFR (African American) 51 ML/MIN (>60); Glucose 140 mg/dl (74-100)
[2021-06-23 13:52] LABS: Magnesium 0.6 mg/dl (1.6-2.3)
[2021-06-23 14:00] VITALS: BP 103/63; PULSE 69; RESP 16; TEMP 36.6; O2SAT 97
--- NOTE | 2021-06-23 14:10 | PC.NURSE ---
1350 Received call from Angie Lovelace from lab/ pt's magnesium 0.6/ repeated and verified pt name, , and lab value. Results called to Dr. García/no new orders/pt receiving Magnesium 2 gram IV as routinely scheduled.
== END 2021-06-23 14:05 | disposition home or self-care (01) ==
LOC: INF 12:22
PROVIDERS: PCP Nurse Practitioner Family; Visit Provider Internal Medicine
DX: E83.42 Hypomagnesemia (principal)
CPT/HCPCS: 80048; 83735; 96365

== ENCOUNTER → 2021-07-16 12:02 | Outpatient (CLI) | payer OTHER, SELFPAY | PROVIDERS: Visit Provider Nurse Practitioner | DX: L60.0 Ingrowing nail (principal) | CPT/HCPCS: 87077; 87186; 87205 ==

== ENCOUNTER 2021-07-21 12:06 | Outpatient (CLI) | payer OTHER, SELFPAY ==
[2021-07-21 12:12] VITALS: BMI 39.5
[2021-07-21 12:24] VITALS: BP 104/62; PULSE 72; RESP 18; TEMP 36.4; O2SAT 95
[2021-07-21 12:34] LABS: Chloride 107 mmol/L (98-107); Potassium 5.1 mmoL/L (3.5-5.1); Sodium 139 mmol/L (136-145)
[2021-07-21 12:36] LABS: Anion Gap 15.1 mEq/L (5-15); Blood Urea Nitrogen 31 mg/dl (9-20); Carbon Dioxide 22 mmol/L (22.0-30.0); Creatinine Clearance Estimated 84 mL/min (50-200); Estimated Glomerular Filt Rate 42 ml/min (>60); GFR (African American) 51 ML/MIN (>60)
[2021-07-21 12:37] LABS: Glucose 134 mg/dl (74-100)
[2021-07-21 12:38] LABS: Magnesium 0.6 mg/dl (1.6-2.3)
[2021-07-21 13:15] VITALS: BP 121/83; PULSE 69; RESP 16; TEMP 36.4; O2SAT 95
== END 2021-07-21 13:15 | disposition home or self-care (01) ==
LOC: INF 12:07
PROVIDERS: PCP Nurse Practitioner Family; Visit Provider Physician Assistant
DX: E83.42 Hypomagnesemia (principal)
CPT/HCPCS: 80048; 83735; 96365

== ENCOUNTER → 2021-08-01 07:54 | Outpatient (CLI) | payer OTHER, SELFPAY | PROVIDERS: PCP Nurse Practitioner Family; Visit Provider Orthopaedic Surgery | DX: M25.512 Pain in left shoulder (principal) ==

== ENCOUNTER 2021-08-25 13:36 | Outpatient (CLI) | payer OTHER, SELFPAY ==
[2021-08-25 13:39] VITALS: BMI 39.5
[2021-08-25 14:16] LABS: Blood Urea Nitrogen 24 mg/dl (9-20); Carbon Dioxide 24 mmol/L (22.0-30.0); Creatinine Clearance Estimated 96 mL/min (50-200); Estimated Glomerular Filt Rate 49 ml/min (>60); GFR (African American) 59 ML/MIN (>60)
[2021-08-25 14:17] LABS: Calcium 9.4 mg/dl (8.4-10.2); Glucose 135 mg/dl (74-100)
[2021-08-25 14:25] LABS: Anion Gap 15.1 mEq/L (5-15); Chloride 102 mmol/L (98-107); Sodium 135 mmol/L (136-145)
[2021-08-25 14:27] LABS: Magnesium 0.9 mg/dl (1.6-2.3); Potassium 6.1 mmoL/L (3.5-5.1)
[2021-08-25 14:38] VITALS: BP 136/78; PULSE 74; RESP 18; TEMP 36.4; O2SAT 97
--- NOTE | 2021-08-25 14:48 | PC.NURSE ---
08/25/21 1427 Isamar Blake called RN at 1426 to report potassium level of 6.1 and magnesium level of 0.9. Repeated and verified pt name, , and lab value. Results called to Monica Azar APRN in cardiology clinic. New orders received to administer magnesium infusion as scheduled and Kayexalate 30GM po x 1 dose for elevated potassium level. Practitioner requested a lab sheet to have pt's potassium level rechecked on 08/26/21. Copy of lab order given to pt and instructed pt to come to [facility] outpt lab tomorrow to have potassium levels rechecked.
[2021-08-25 15:08] VITALS: BP 129/77; PULSE 79; RESP 18; O2SAT 97
[2021-08-25 15:46] VITALS: BP 111/66; PULSE 70; RESP 18; O2SAT 97
== END 2021-08-25 15:54 | disposition home or self-care (01) ==
LOC: INF 13:37
PROVIDERS: PCP Emergency Medicine; Visit Provider Physician Assistant
DX: E83.42 Hypomagnesemia (principal)
CPT/HCPCS: 80048; 83735; 96365

== ENCOUNTER → 2021-08-26 12:17 | Outpatient (CLI) | payer OTHER, SELFPAY ==
[2021-08-26 13:43] LABS: Chloride 103 mmol/L (98-107); Potassium 5.8 mmoL/L (3.5-5.1); Sodium 136 mmol/L (136-145)
[2021-08-26 13:46] LABS: Blood Urea Nitrogen 23 mg/dl (9-20); Estimated Glomerular Filt Rate 53 ml/min (>60); GFR (African American) 64 ML/MIN (>60)
[2021-08-26 13:47] LABS: Anion Gap 10.8 mEq/L (5-15); Calcium 9.2 mg/dl (8.4-10.2); Carbon Dioxide 28 mmol/L (22.0-30.0); Glucose 146 mg/dl (74-100)
== END ==
PROVIDERS: Visit Provider Physician Assistant
DX: E87.5 Hyperkalemia (principal); E83.42 Hypomagnesemia
CPT/HCPCS: 36415; 80048

== ENCOUNTER → 2021-08-27 14:09 | Outpatient (CLI) | payer OTHER, SELFPAY ==
[2021-08-27 15:07] LABS: Chloride 103 mmol/L (98-107); Potassium 5.3 mmoL/L (3.5-5.1); Sodium 138 mmol/L (136-145)
[2021-08-27 15:10] LABS: Anion Gap 13.3 mEq/L (5-15); Blood Urea Nitrogen 20 mg/dl (9-20); Carbon Dioxide 27 mmol/L (22.0-30.0); Estimated Glomerular Filt Rate 63 ml/min (>60); GFR (African American) 76 ML/MIN (>60); Glucose 132 mg/dl (74-100)
== END ==
PROVIDERS: Visit Provider Nurse Practitioner Family
DX: E87.5 Hyperkalemia (principal)
CPT/HCPCS: 36415; 80048

== ENCOUNTER → 2021-09-01 11:31 | Outpatient (CLI) | payer OTHER, SELFPAY ==
[2021-09-01 12:12] LABS: Basophils # 0.1 K/mm3 (0-0.2); Basophils % 0.9 % (0.1-2.0); Eosinophils # 0.2 K/mm3 (0.0-0.4); Eosinophils % 2.9 % (0.1-12.0); Hematocrit 45.7 % (42.0-52.0); Hemoglobin 14.2 g/dL (14.1-18.0); Lymphocytes # 2.4 K/mm3 (0.7-4.5); Lymphocytes % 31.8 % (10-50); Mean Corpuscular HGB Conc 31.1 g/dL (31.8-35.4); Mean Corpuscular Hemoglobin 29.3 pg (27.0-31.2); Mean Platelet Volume 8.4 fl (7.4-10.4); Monocytes # 0.5 K/mm3 (0.1-1.0); Neutrophils # 4.5 K/mm3 (1.8-7.8); Neutrophils % 58.3 % (37.0-80.0); Platelet Count 316 K/mm3 (142-424); Red Blood Count 4.86 M/mm3 (4.60-6.20); Red Cell Distribution Width 16.1 % (11.5-17.5); White Blood Count 7.7 K/mm3 (4.8-10.8)
[2021-09-01 12:55] LABS: Chloride 103 mmol/L (98-107); Sodium 138 mmol/L (136-145)
[2021-09-01 12:56] LABS: Potassium 5.3 mmoL/L (3.5-5.1)
[2021-09-01 12:59] LABS: Anion Gap 14.3 mEq/L (5-15); Blood Urea Nitrogen 26 mg/dl (9-20); Carbon Dioxide 26 mmol/L (22.0-30.0); Estimated Glomerular Filt Rate 49 ml/min (>60); GFR (African American) 59 ML/MIN (>60); Glucose 144 mg/dl (74-100)
== END ==
PROVIDERS: Visit Provider Physician Assistant
DX: R06.00 Dyspnea, unspecified (principal); I25.10 Atherosclerotic heart disease of native coronary artery without angina pectoris; I11.0 Hypertensive heart disease with heart failure; I25.5 Ischemic cardiomyopathy; E87.5 Hyperkalemia; I42.0 Dilated cardiomyopathy; I50.20 Unspecified systolic (congestive) heart failure; E11.69 Type 2 diabetes mellitus with other specified complication; E78.2 Mixed hyperlipidemia; E78.5 Hyperlipidemia, unspecified; F17.200 Nicotine dependence, unspecified, uncomplicated; Z95.5 Presence of coronary angioplasty implant and graft; Z98.61 Coronary angioplasty status; Z79.84 Long term (current) use of oral hypoglycemic drugs
CPT/HCPCS: 36415; 80048; 85025

== ENCOUNTER → 2021-09-16 10:19 | Outpatient (CLI) | payer OTHER, SELFPAY | PROVIDERS: Visit Provider Surgery | DX: Z01.812 Encounter for preprocedural laboratory examination (principal); Z11.52 Encounter for screening for COVID-19; Z12.11 Encounter for screening for malignant neoplasm of colon | CPT/HCPCS: C9803; U0003; U0005 ==

== ENCOUNTER 2021-09-18 13:22 | Day surgery (SDC) | payer OTHER, SELFPAY ==
[2021-09-15 11:12] VITALS: BMI 39.7
[2021-09-18 13:37] VITALS: BP 172/101; PULSE 89; RESP 18; TEMP 36.8; O2SAT 96
[2021-09-18 13:50] VITALS: O2SAT 97
[2021-09-18 14:50] VITALS: BP 136/74; PULSE 105; RESP 18; TEMP 36.7; O2SAT 92
--- NOTE | 2021-09-18 14:50 | HMH.SCOPE ---
- Procedure: Date: 09/18/21 Patient Date of :: 1965 Procedure Performed:: Colonoscopy with biopsy Indications:: This is a 56-year-old gentleman with a history of colon polyps. In 2017, a colonoscopy was complicated by difficulty in visualization. A follow-up barium enema revealed a questionable 1 cm polyp in the descending colon. Subsequent colonoscopy in September 2018 was yet again limited in terms of visualization. A repeat barium enema was ordered; however, this was never completed. He now returns for repeat colonoscopy and also complains of recent bright red blood per rectum after starting Xarelto. Performing Provider:: Pravin Aquino MD Referring Provider:: . Sedation:: Monitored anesthesia care Procedure:: After informed consent was obtained the patient was taken to the endoscopy suite. Sedation ensued after the patient was transferred to the left lateral decubitus position. Pulse, blood pressure, and oxygen saturation were monitored throughout the procedure. Digital rectal exam revealed no significant abnormality. The colonoscope was placed in position. The entire colon was evaluated. The colonoscope was carefully removed and the patient was transferred to recovery in stable condition. Please see findings and specimens below for detail. Findings:: Moderate hemorrhoidal cushions and mild tags. No active bleeding or thrombosis noted. Profound spasticity and lack of relaxation Bowel preparation relatively fair Inflammatory changes in and around ileocecal valve Specimens:: Ileocecal valve biopsy Recommendations:: Follow-up pathology The patient has had multiple colonoscopies that have resulted in limited visualization either from issues with bowel preparation or spasticity/lack of relaxation. A questionable polyp in 2018 noted on barium enema was not visualized on subsequent colonoscopies. Repeat barium enema still warranted. Timing of repeat colonoscopy is pending results of recommended barium enema. Most likely, a repeat colonoscopy in approximately 3 years will be reasonable. Complications:: No immediate Estimated blood obtained (mL): 1
[2021-09-18 15:00] VITALS: BP 116/74; PULSE 93; RESP 18; O2SAT 97
[2021-09-18 15:10] VITALS: BP 143/85; PULSE 88; RESP 18; O2SAT 98
[2021-09-18 15:13] VITALS: BP 120/91; PULSE 84; RESP 18; O2SAT 98
[2022-07-30 10:54] LABS: POC Glucose,Bedside 126 (70-110)
== END 2021-09-18 15:17 | disposition home or self-care (01) ==
LOC: OUTP 13:23
PROVIDERS: PCP Emergency Medicine; Visit Provider Surgery
PROC: 0DJD8ZZ Inspection of Lower Intestinal Tract, Via Natural or Artificial Opening Endoscopic (ICD-10-PCS; CPT 45380; principal; 2021-09-18 14:30)
DX: Z86.010 Personal history of colon polyps (principal); K64.8 Other hemorrhoids; K62.89 Other specified diseases of anus and rectum; Z83.3 Family history of diabetes mellitus; Z82.49 Family history of ischemic heart disease and other diseases of the circulatory system; I48.92 Unspecified atrial flutter; E11.9 Type 2 diabetes mellitus without complications; N18.9 Chronic kidney disease, unspecified; Z79.82 Long term (current) use of aspirin; Z79.84 Long term (current) use of oral hypoglycemic drugs; Z79.899 Other long term (current) drug therapy
CPT/HCPCS: 45380; 82962

== ENCOUNTER 2021-09-22 12:19 | Outpatient (CLI) | payer OTHER, SELFPAY ==
[2021-09-22 12:24] VITALS: BMI 40.7
[2021-09-22 12:45] VITALS: BP 129/74; PULSE 75; RESP 18; TEMP 36.4; O2SAT 97
[2021-09-22 12:59] LABS: Chloride 100 mmol/L (98-107)
[2021-09-22 13:00] LABS: Sodium 136 mmol/L (136-145)
[2021-09-22 13:02] LABS: Blood Urea Nitrogen 29 mg/dl (9-20); Creatinine Clearance Estimated 82 mL/min (50-200); Estimated Glomerular Filt Rate 39 ml/min (>60); GFR (African American) 48 ML/MIN (>60)
[2021-09-22 13:03] LABS: Carbon Dioxide 28 mmol/L (22.0-30.0); Glucose 156 mg/dl (74-100)
[2021-09-22 13:06] LABS: Magnesium 0.9 mg/dl (1.6-2.3)
--- NOTE | 2021-09-22 13:10 | PC.NURSE ---
1304 Annamarie Cox called VANI Siddiqui at 1304 to report magnesium level 0.9. VANI Siddiqui repeated and verified patient name, , and lab value. Result called to Yvonne in Barbara/'s office. no new orders received/ patient currently receiving routine weekly Magnesium 2 gram IV infusion.
[2021-09-22 15:09] VITALS: BP 116/82; PULSE 81; RESP 16; TEMP 36.4; O2SAT 96
== END 2021-09-22 13:25 | disposition home or self-care (01) ==
LOC: INF 12:20
PROVIDERS: PCP Emergency Medicine; Visit Provider Physician Assistant
DX: E83.42 Hypomagnesemia (principal)
CPT/HCPCS: 80048; 83735; 96365

== ENCOUNTER → 2021-10-14 10:01 | Outpatient (CLI) | payer OTHER, SELFPAY ==
--- NOTE | 2021-10-14 10:02 | FL_ITS ---
PROCEDURE: FL BARIUM ENEMA CLINICAL INDICATION: abnormal colon COMPARISON: CT ABDPELW CT ABD PELVIS W/ CONTRAST from 06/04/2017 DX,RF BE FL barium enema from 07/14/2018 FINDINGS: Fluoroscopy time: 5 minutes and 36 seconds. Surg Nurse exam is unremarkable. The colon is visualized from rectum to cecum including terminal ileum. No annular constricting lesions or polypoid filling defects are evident. No mucosal abnormalities are apparent. Terminal ileum has an unremarkable appearance and the appendix did fill. IMPRESSION: Unremarkable air-contrast barium enema Dictated by: Mathew Helton MD 10/14/2021 17:43 Mathew Helton MD in [place] 10/14/2021 17:43
[2021-10-14 10:27] VITALS: BMI 39.9
[2021-10-14 10:35] LABS: POC Glucose,Bedside 170 (70-110)
== END ==
PROVIDERS: PCP Emergency Medicine; Visit Provider Surgery
DX: Z86.010 Personal history of colon polyps (principal)
CPT/HCPCS: 74270; 82962

== ENCOUNTER → 2021-10-21 14:52 | Outpatient (CLI) | payer OTHER, SELFPAY ==
--- NOTE | 2021-10-21 14:54 | CA_ITS ---
APPROVED REPORT Right Lower Extremity Venous Study for DVT. Pilot Control Operator: AYLIN Indications evaluate for DVT, Previous langley's cyst, Hx-DVT Vein Imaging CFV (R): compressive, spontaneous, phasic, augmentation SFJ (R): compressive, spontaneous, phasic, augmentation FEM (R): compressive, spontaneous, phasic, augmentation POP (R): compressive, spontaneous, phasic, augmentation DFV (R): compressive, spontaneous, phasic, augmentation PTV (R): compressive, spontaneous, phasic, augmentation GSV (R): compressive, spontaneous, phasic, augmentation SSV (R): compressive, spontaneous, phasic, augmentation Peroneals (R):compressive, spontaneous, phasic, augmentation GAS (R): compressive, spontaneous, phasic, augmentation Findings Color flow duplex demonstrates no evidence of DVT of the following right lower extremity Veins:Common Femoral Vein, Femoral Vein, Popliteal Vein, Peroneal Veins, Posterior Tibial Veins, Deep Femoral Vein. Negative for DVT. Persistant Langley's cyst in the right popliteal fossa. Conclusion Negative for DVT. Persistant Langley's cyst in the right popliteal fossa. Electronically signed by : Mathew Helton MD 10/21/2021 17:38:04
== END ==
PROVIDERS: PCP Emergency Medicine; Visit Provider Orthopaedic Surgery
DX: M79.89 Other specified soft tissue disorders (principal); M79.661 Pain in right lower leg
CPT/HCPCS: 93971

== ENCOUNTER 2021-11-10 13:38 | Outpatient (CLI) | payer OTHER, SELFPAY ==
[2021-11-10 13:41] VITALS: BMI 39.5
[2021-11-10 13:55] VITALS: BP 105/67; PULSE 71; RESP 18; TEMP 36.7; O2SAT 98
[2021-11-10 14:07] LABS: Chloride 100 mmol/L (98-107); Sodium 136 mmol/L (136-145)
[2021-11-10 14:10] LABS: Blood Urea Nitrogen 23 mg/dl (9-20); Carbon Dioxide 25 mmol/L (22.0-30.0); Creatinine Clearance Estimated 110 mL/min (50-200); Estimated Glomerular Filt Rate 57 ml/min (>60); GFR (African American) 69 ML/MIN (>60)
[2021-11-10 14:11] LABS: Calcium 8.5 mg/dl (8.4-10.2); Glucose 180 mg/dl (74-100)
--- NOTE | 2021-11-10 14:14 | PC.NURSE ---
1414-alexander zhang called rn at 1414 to report magnesium level 0.9. rn repeated and verified pt name and lab value. result called to krzysztof malloy aprn and no new orders received
[2021-11-10 14:16] LABS: Magnesium 0.9 mg/dl (1.6-2.3)
[2021-11-10 15:18] VITALS: BP 111/78; PULSE 66; RESP 18
== END 2021-11-10 15:18 | disposition home or self-care (01) ==
LOC: INF 13:39
PROVIDERS: PCP Nurse Practitioner Family; Visit Provider Internal Medicine
DX: E83.42 Hypomagnesemia (principal)
CPT/HCPCS: 80048; 83735; 96365

== ENCOUNTER 2021-12-15 12:37 | Outpatient (CLI) | payer OTHER, SELFPAY ==
[2021-12-15 12:45] VITALS: BMI 42.3
[2021-12-15 12:54] VITALS: BP 129/84; PULSE 76; RESP 16; TEMP 36.5; O2SAT 97
[2021-12-15 13:09] LABS: Chloride 100 mmol/L (98-107); Potassium 4.9 mmoL/L (3.5-5.1); Sodium 132 mmol/L (136-145)
[2021-12-15 13:12] LABS: Anion Gap 7.9 mEq/L (5-15); Blood Urea Nitrogen 28 mg/dl (9-20); Calcium 7.8 mg/dl (8.4-10.2); Carbon Dioxide 29 mmol/L (22.0-30.0); Creatinine Clearance Estimated 43 mL/min (50-200); Estimated Glomerular Filt Rate 39 ml/min (>60); GFR (African American) 48 ML/MIN (>60); Glucose 123 mg/dl (74-100)
[2021-12-15 13:20] LABS: Magnesium 0.8 mg/dl (1.6-2.3)
--- NOTE | 2021-12-15 13:20 | PC.NURSE ---
ALONDRA FROM LAB CALLED RN AT 1320 TO REPORT MAGNESIUM LEVEL OF 0.8. RN REPEATED AND VERIFIED PT NAME, , AND LAB VALUE. RESULTS TO , ORDERS TO BE CONTINUED.
[2021-12-15 14:35] VITALS: BP 143/89; PULSE 68; RESP 16; TEMP 36.6; O2SAT 97
== END 2021-12-15 14:37 | disposition home or self-care (01) ==
LOC: INF 12:40
PROVIDERS: PCP Emergency Medicine; Visit Provider Internal Medicine
DX: E83.42 Hypomagnesemia (principal)
CPT/HCPCS: 80048; 83735; 96365

== ENCOUNTER → 2022-03-05 10:07 | Outpatient (CLI) | payer OTHER, SELFPAY ==
--- NOTE | 2022-03-05 10:10 | XR_ITS ---
FINAL REPORT CLINICAL HISTORY: rt elbow pain FINDINGS: RIGHT ELBOW 3 views were obtained. There is no acute fracture or dislocation. There is no joint effusion. There are mild degenerative changes. There is soft tissue swelling overlying the olecranon that may represent olecranon bursitis. IMPRESSION: Mild degenerative change with possible olecranon bursitis. Reviewed, Interpreted and Dictated by Trent Morales III, MD Transcribed by Ray Delgadillo Authenticated by Trent Morales III, MD on 03/05/2022 11:20:35 AM [facility]
== END ==
PROVIDERS: PCP Emergency Medicine; Visit Provider Orthopaedic Surgery
DX: M25.521 Pain in right elbow (principal)
CPT/HCPCS: 73080

== ENCOUNTER → 2022-03-11 11:33 | Outpatient (CLI) | payer OTHER, SELFPAY ==
[2022-03-11 12:13] LABS: Basophils # 0.1 K/mm3 (0-0.2); Basophils % 1.2 % (0.1-2.0); Eosinophils # 0.2 K/mm3 (0.0-0.4); Eosinophils % 1.6 % (0.1-12.0); Hematocrit 50.1 % (42.0-52.0); Hemoglobin 16.4 g/dL (14.1-18.0); Lymphocytes # 2.6 K/mm3 (0.7-4.5); Mean Corpuscular HGB Conc 32.7 g/dL (31.8-35.4); Mean Corpuscular Hemoglobin 31.5 pg (27.0-31.2); Mean Corpuscular Volume 96.2 fl (80-94); Mean Platelet Volume 7.7 fl (7.4-10.4); Monocytes # 0.6 K/mm3 (0.1-1.0); Monocytes % 6.4 % (1.7-9.3); Neutrophils # 5.9 K/mm3 (1.8-7.8); Neutrophils % 62.7 % (37.0-80.0); Platelet Count 372 K/mm3 (142-424); Red Blood Count 5.21 M/mm3 (4.60-6.20); Red Cell Distribution Width 15.5 % (11.5-17.5); White Blood Count 9.4 K/mm3 (4.8-10.8)
[2022-03-11 12:28] LABS: Alanine Aminotransferase 20 U/L (12-78); Albumin Level 4.1 g/dl (3.5-5.0); Albumin/Globulin Ratio 1.5 (1.1-1.8); Alkaline Phosphatase 65 U/L (38-126); Anion Gap 13.8 mEq/L (5-15); Aspartate Amino Transferase 21 U/L (17-59); Bilirubin,Total 0.6 mg/dl (0.2-1.3); Blood Urea Nitrogen 26 mg/dl (9-20); Calcium 9.2 mg/dl (8.4-10.2); Carbon Dioxide 29 mmol/L (22.0-30.0); Chloride 96 mmol/L (98-107); Chol/HDL Ratio 4.2 (1-3.5); Cholesterol 240 mg/dl (140-200); Estimated Glomerular Filt Rate 42 ml/min (>60); GFR (African American) 51 ML/MIN (>60); Globulin 2.7 g/dL (1.3-3.2); Glucose 150 mg/dl (74-100); HDL Cholesterol 57 mg/dl (40-60); Potassium 4.8 mmoL/L (3.5-5.1); Sodium 134 mmol/L (136-145); Total Protein,Serum 6.8 g/dl (6.3-8.2); Triglycerides 220 mg/dl (30-150); VLDL Cholesterol 44 mg/dL (0-40)
[2022-03-11 12:39] LABS: Direct LDL Cholesterol 129.83 mg/dL (100-129)
[2022-03-11 12:55] LABS: Hemoglobin A1C 7.4 % (4.0-6.0)
[2022-03-11 12:58] LABS: Thyroid Stimulating Hormone 2.48 uIU/mL (0.465-4.68)
[2022-03-11 13:30] LABS: Free T4 (Free Thyroxine) 1.25 ng/dl (0.78-2.19)
== END ==
PROVIDERS: Visit Provider Emergency Medicine
DX: E11.9 Type 2 diabetes mellitus without complications (principal); E55.9 Vitamin D deficiency, unspecified; Z79.84 Long term (current) use of oral hypoglycemic drugs; Z79.899 Other long term (current) drug therapy
CPT/HCPCS: 36415; 80053; 80061; 82306; 83036; 84439; 84443; 85025

== ENCOUNTER → 2022-04-13 11:47 | Outpatient (CLI) | payer OTHER, SELFPAY ==
--- NOTE | 2022-04-13 11:57 | XR_ITS ---
FINAL REPORT CLINICAL HISTORY: pre op for elbow surgery COMPARISON: May 22, 2021 FINDINGS: Two views of the chest were obtained. The heart size and pulmonary vascularity are within normal limits. The mediastinum is normal. No acute pulmonary abnormality is identified. There is no pneumothorax. There is mild to moderate degenerative change in the thoracic spine. IMPRESSION: No active cardiopulmonary disease. Reviewed, Interpreted and Dictated by Trent Morales III, MD Transcribed by Janet Crystal Authenticated and [facility]
[2022-04-13 12:48] LABS: Basophils # 0.1 K/mm3 (0-0.2); Basophils % 0.6 % (0.1-2.0); Eosinophils # 0.2 K/mm3 (0.0-0.4); Eosinophils % 2.2 % (0.1-12.0); Hematocrit 46.7 % (42.0-52.0); Hemoglobin 15.4 g/dL (14.1-18.0); Lymphocytes # 2.9 K/mm3 (0.7-4.5); Lymphocytes % 32.8 % (10-50); Mean Corpuscular Hemoglobin 31.2 pg (27.0-31.2); Mean Corpuscular Volume 94.5 fl (80-94); Mean Platelet Volume 7.1 fl (7.4-10.4); Monocytes # 0.7 K/mm3 (0.1-1.0); Monocytes % 7.7 % (1.7-9.3); Neutrophils # 5.1 K/mm3 (1.8-7.8); Neutrophils % 56.7 % (37.0-80.0); Platelet Count 342 K/mm3 (142-424); Red Blood Count 4.94 M/mm3 (4.60-6.20); White Blood Count 8.9 K/mm3 (4.8-10.8)
[2022-04-13 13:27] LABS: Chloride 102 mmol/L (98-107); Potassium 5.2 mmoL/L (3.5-5.1); Sodium 134 mmol/L (136-145)
[2022-04-13 13:30] LABS: Alanine Aminotransferase 16 U/L (12-78); Albumin/Globulin Ratio 1.4 (1.1-1.8); Alkaline Phosphatase 73 U/L (38-126); Anion Gap 11.2 mEq/L (5-15); Aspartate Amino Transferase 21 U/L (17-59); Bilirubin,Total 0.4 mg/dl (0.2-1.3); Blood Urea Nitrogen 26 mg/dl (9-20); Calcium 9.3 mg/dl (8.4-10.2); Carbon Dioxide 26 mmol/L (22.0-30.0); Estimated Glomerular Filt Rate 39 ml/min (>60); GFR (African American) 47 ML/MIN (>60); Globulin 2.8 g/dL (1.3-3.2); Glucose 135 mg/dl (74-100); Total Protein,Serum 6.8 g/dl (6.3-8.2)
== END ==
PROVIDERS: PCP Emergency Medicine; Visit Provider Orthopaedic Surgery
DX: Z01.818 Encounter for other preprocedural examination (principal); M70.21 Olecranon bursitis, right elbow
CPT/HCPCS: 36415; 71046; 80053; 85025

== ENCOUNTER → 2022-04-15 09:25 | Outpatient (CLI) | payer OTHER, SELFPAY | PROVIDERS: PCP Emergency Medicine; Visit Provider Orthopaedic Surgery | DX: Z01.812 Encounter for preprocedural laboratory examination (principal); Z20.822 Contact with and (suspected) exposure to COVID-19; M70.21 Olecranon bursitis, right elbow | CPT/HCPCS: C9803; U0003; U0005 ==

== ENCOUNTER 2022-04-17 11:27 | Day surgery (SDC) | payer OTHER, SELFPAY ==
[2022-04-14 14:20] VITALS: BMI 38.4
[2022-04-17] VITALS (14 sets, daily range): BP systolic 106–156; BP diastolic 53–95; PULSE 63–74; RESP 16–20; TEMP 36.1–36.5; O2SAT 92–98
[2022-04-17 12:17] LABS: POC Glucose,Bedside 160 (70-110)
--- NOTE | 2022-04-17 15:21 | HMH.ANESCL ---
[facility] Anesthesia Checklist - Patient Identification Patient Identification: Arm Band, Verbal (Name & ) - Structural Data Admitted From: Home Planned Operative Procedure/s: Right Olecranon Consent for Planned Operative Procedure(s) Verified: Yes Verified Documents: Surgical Consent - NPO Status Verified Time NPO: 00:00 - Chart Verification Results Verified: CBC - Additional verifications Anesthesia Reactions: No Hx Blood Transfusions: No Blood Transfusion Reaction: No - Airway Assessment C-Spine Mobility Assessed: Yes TMJ Mobility Assessed: Yes Dentition: Dentures-good fit - Neurological Assessment Level of Consciousness: Awake, Alert, Appropriate - Anesthesia Plan Anesthesia Risk discussed: Yes ASA Class: II Anesthesia Type: General [facility] History I have reviewed the patient's past medical history: Yes Medical History: Reports:: Anxiety, Arrhythmia, Atrial Fibrillation, Cardiomyopathy, Congestive Heart Failure, Coronary Artery Disease, Deep Vein Thrombosis, Depression, Diabetes Mellitus Type 2, Hyperlipidemia, Hypertension, Lung Disease, 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 Denies: Blood Transfusion Reaction Anesthesia experience/problems:: none Laterality Cases: Left: Other, Bilateral: Tonsillectomy Other Surgeries: Yes: No Previous Surgery, Angiogram, Angioplasty, Cardiac Catheterization, Cardiac Surgery, Cholecystectomy, Colonoscopy, Coronary Stent, Other. No: Pacemaker Amputation: No Fractures: Yes (left femur) - *Social History Last grade of school completed: High school graduate Smoking Status: Current every day smoker Tobacco Type: cigarettes # Packs/Day (cigarettes): 1 #Yrs smoked (if former smoker): 25 Alcohol Intake: current Alcohol Intake Frequency:: holidays/special occasions only Substance Use Type: marijuana *Occupational Status:: retired Housing: house Household Members: none *Travel in the last 8 weeks: None - Psychiatric History Pschychiatric History:: Reports:: Anxiety, Depression Family Hx:: No significant family history
--- NOTE | 2022-04-17 15:24 | P.PN_ITS ---
[facility] Anesthesia Record Part I Intake, IV Amount: 800 Estimated blood loss (mL): 10 Urine output (mL): 0 Blood Pressure: 120/70 SaO2: 92 Pulse Rate: 71 Respiratory Rate: 16 Temperature: 97.7 F Patient is:: Drowsy Stable to PACU at:: 15:16
[2022-04-17 15:36] LABS: POC Glucose,Bedside 148 (70-110)
--- NOTE | 2022-04-17 15:49 | HMH.OPNOTE ---
Date of procedure: 04/17/22 Pre-op Diagnosis:: 1. Swelling, right elbow 2. Olecranon bursitis, right elbow 3. Gouty tophus, right elbow Post-op Diagnosis:: Same Procedure performed:: 1. Excision of right bursa, right elbow 2. Excision of gouty tophus, right elbow Surgeon:: Inder Brown MD Slitter And Rewinder Machine Operator(s):: Iesha Acevedo PA-C EQUALIZING SAW OPERATOR:: Other (Ac Dickerson) Anesthesia: LMA Estimated blood loss (mL): 2 Clinical Note:: Patient is a 57-year-old [id number] male patient with multiple medical problems and a large painful gouty tophus and olecranon bursitis over posterior aspect of the right elbow. Given the history and clinical findings, the lesion is most likely olecranon bursitis with gouty tophi. Patient has had this for a long time and reports severe pain when he accidentally hits his elbow onto something. It is interfering with his elbow function and appearance. Therefore, he opted for a surgical remediation in the form of open surgical excision of the olecranon bursa/gouty tophus, right elbow. Patient is a known diabetic which is poorly controlled. He is a chronic smoker and continues to smoke. His past medical history includes CHF, atrial fibrillation, coronary artery disease, hypertension, hyperlipidemia, myocardial infarction, gout, and diabetes mellitus. Please refer to orthopedic office note for full details. Operative findings:: On examination of the right elbow prior to the incision, there was presence of thickening of the bursal sac. There was an irregular swelling in the soft tissue which appeared to be due to gouty tophi deposition. During surgery, the olecranon bursa was thickened and had large deposits of gouty tophi. Excision of the olecranon bursa was performed along with the tophi. There was some thickening of the bursa. There was a bone spur over the tip of the olecranon and further gouty tophi in the triceps tendon. The tendon was split in the midline and the deposits were curetted out. The bone spur was excised with rongeurs. Operative note:: On the day of the surgery, the patient and his father were met in the preoperative area. I have again discussed the diagnosis, natural history and management options in detail including both nonsurgical and surgical. Patient again opted for a surgical remediation in the form of open surgical excision of the olecranon bursa/gouty tophus, right elbow. I have discussed the details of the surgery, risks, benefits and alternatives. The complications discussed include but are not limited to infection, injury to nerves, tendons and blood vessels, incisional scar (cosmesis), scar tenderness/contracture, DVT/PE, elbow stiffness, CRPS (complex regional pain syndrome- pain, sensory and temperature changes, swelling and stiffness), painful scar, incomplete relief of pain, incomplete return of function, recurrence and likely need for further surgery in future and also the risks of anesthesia including heart attack, stroke, and even . I have explained how additional surgery may be required if there are any complications or the swelling recurs. We have also discussed the postoperative recovery and rehabilitation required, the likely need for hand therapy, the possibility of stiffness, chronic pain and we've also discussed the option of nonsurgical treatment. All the questions were answered by me and patient verbalized a good understanding. Patient understood the risks, agreed to proceed with surgery, signed the consent form and no guarantees or assurances were given or implied. A physical examination was performed and documented. The correct site was marked and initialed by me. Patient was brought to the operating room and placed supine on the table.? All the bony prominences were well padded. A general anesthesia was administered by the industrial psychology teacher.? After the patient was anesthetized he was positioned in the left lateral decubitus position with the right side up.? The right arm was placed
[2022-04-20 08:16] VITALS: BP 122/86; PULSE 65; TEMP 36.1
--- NOTE | 2022-04-20 08:16 | P.PN_ITS ---
[facility] Anesthesia Record Part II Discharge Time: 15:46 Destination: [facility] PACU nurse assessment reviewed?: Yes Patient Condition:: Good Anesthesia Complications:: None Swallowing reflex intact?: Yes Cyanosis?: No Blood Pressure: 122/86 Pulse Rate: 65 Temperature: 97 F Mental Status: Alert & Oriented Pain level:: 8 Nausea and/or vomitting:: None Intake, IV Amount: 800
== END 2022-04-17 17:17 | disposition home or self-care (01) ==
LOC: OR 11:29
PROVIDERS: PCP Emergency Medicine; Visit Provider Orthopaedic Surgery
PROC: (CPT 24105; principal; 2022-04-17 13:00)
DX: M70.21 Olecranon bursitis, right elbow (principal); M1A.0211 Idiopathic chronic gout, right elbow, with tophus (tophi); E11.9 Type 2 diabetes mellitus without complications; I11.0 Hypertensive heart disease with heart failure; I50.9 Heart failure, unspecified; I48.91 Unspecified atrial fibrillation; F17.210 Nicotine dependence, cigarettes, uncomplicated; I25.10 Atherosclerotic heart disease of native coronary artery without angina pectoris; Z79.84 Long term (current) use of oral hypoglycemic drugs; Z79.899 Other long term (current) drug therapy
CPT/HCPCS: 24105; 24101; 82962; 96374; J2405

== ENCOUNTER 2022-04-19 10:51 | Emergency (ER) | payer OTHER, SELFPAY ==
[2022-04-19] VITALS (7 sets, daily range): BP systolic 125–177; BP diastolic 75–117; PULSE 60–80; RESP 16–22; TEMP 36.6–36.7; O2SAT 97–99; BMI 38.4
--- NOTE | 2022-04-19 11:41 | PC.NURSE ---
PT AMBULATORY TO BR AT THIS TIME
--- NOTE | 2022-04-19 12:31 | PC.NURSE ---
pt ambulated to the restroom
--- NOTE | 2022-04-19 12:37 | HMH.EDGENADL ---
ED Disposition Clinical Impression: Postoperative pain, Postoperative edema Disposition: Home, Self-Care Condition on Discharge: Good Additional Instructions: Bandage, leave Tevin wrap off. Keflex as prescribed. Follow-up in the office on Wednesday with Dr. Brown. Return to the emergency department if worsening pain, worsening swelling, fever. Prescriptions: cephALEXin [cephALEXin 500mg capsule*] 500 mg PO Q6H #28 cap Transmission Status: Received by [id number] Referrals: Chacho Gutierrez MD [Primary Care Provider] - - Critical Care Critical Care Time: No Attestation: On 04/19/22, the high probability of a clinically significant, sudden or life threatening deterioration of the following system(s) required my full and direct attention, intervention and personal management. The time I documented below is in addition to time spent performing reported procedures but includes the following listed in this critical care notation. Medical Decision Making - Uziel Inquiry Pt receiving controlled substance: Yes Uziel was queried for this patient: Yes Risks and benefits of using a controlled substance: were not discussed with pt by me Vital Signs: 04/19/22 10:52 04/19/22 10:56 04/19/22 11:01 Temperature 98.0 F Temperature Source Oral Pulse Rate 80 74 Pulse Rate [Brachial] 72 Respiratory Rate 22 Blood Pressure 177/117 H 167/105 H Blood Pressure [Left Arm] 167/105 H Blood Pressure Mean 136 125 Blood Pressure Mean [Left Arm] 125 Blood Pressure Source [Left Arm] Automatic Cuff Blood Pressure Position Blood Pressure Position [Left Arm] Sitting 02 Sat by Pulse Oximetry 99 99 98 Oxygen Delivery Method Room Air 04/19/22 11:26 04/19/22 12:03 04/19/22 12:27 Temperature Temperature Source Pulse Rate 63 68 60 Pulse Rate [Brachial] Respiratory Rate Blood Pressure 141/96 H 160/99 H 125/75 Blood Pressure [Left Arm] Blood Pressure Mean 115 119 91 Blood Pressure Mean [Left Arm] Blood Pressure Source [Left Arm] Blood Pressure Position Blood Pressure Position [Left Arm] 02 Sat by Pulse Oximetry 98 97 97 Oxygen Delivery Method 04/19/22 13:26 Temperature 98 F Temperature Source Oral Pulse Rate 78 Pulse Rate [Brachial] Respiratory Rate 16 Blood Pressure 137/78 Blood Pressure [Left Arm] Blood Pressure Mean Blood Pressure Mean [Left Arm] Blood Pressure Source [Left Arm] Blood Pressure Position Sitting Blood Pressure Position [Left Arm] 02 Sat by Pulse Oximetry Oxygen Delivery Method Room Air Orders (Tests/Meds): ED MEDICATIONS Discontinued Medications Generic Name Dose Route Start Last Admin Trade Name Rachael PRN Reason Stop Dose Admin Hydromorphone HCl 2 mg 04/19/22 13:09 04/19/22 13:17 Hydromorphone 2mg/Ml Syringe IM 04/19/22 13:10 2 mg ONCE ONE Administration Ondansetron HCl 4 mg 04/19/22 13:09 04/19/22 13:17 Ondansetron 4mg/2ml Vial IM 04/19/22 13:10 4 mg ONCE ONE Administration - Physician Consults Physician Consulted: Kevin Time: 13:00 Reason -: Orthopedic Eval/Care Comment/Response: Images of patient's incision and upper extremity transmitted to Dr. Brown and he has viewed. He feels patient is at low risk of DVT, given current findings and the fact that he is on multiple anticoagulants. Feels that findings are likely related to his elastic bandage being too tight, given the petechial hemorrhages of his forearm, swelling and improvement after removal of dressing. He requested patient be started on Keflex and keep his appointment with him on Wednesday. Do not use elastic wrap. Reapply bandage. Medical Decision Narrative: Elastic wrap and bandages removed and patient reports some improvement afterwards although says he still has discomfort and request pain medication. He last took a pain pill at 9 AM. General Adult HPI - General Chief complaint: PAIN Stated complaint: post op 04/17 hand swel
--- NOTE | 2022-04-19 12:56 | PC.NURSE ---
Pgd DR LAUREANO
--- NOTE | 2022-04-19 12:56 | PC.NURSE ---
DR LAUREANO CALLED IN RESPONSE TO PAGE
== END 2022-04-19 13:31 | disposition home or self-care (01) ==
PROVIDERS: Emergency Provider Emergency Medicine; PCP Emergency Medicine
DX: M79.641 Pain in right hand (principal); M79.89 Other specified soft tissue disorders; Z98.890 Other specified postprocedural states; Z86.718 Personal history of other venous thrombosis and embolism; Z79.01 Long term (current) use of anticoagulants; I48.91 Unspecified atrial fibrillation; I10 Essential (primary) hypertension; E11.9 Type 2 diabetes mellitus without complications
CPT/HCPCS: 96372; 99283; J2405

== ENCOUNTER 2022-06-15 11:53 | Outpatient (CLI) | payer OTHER, SELFPAY ==
[2022-06-15 11:58] VITALS: BMI 41.3
[2022-06-15 12:20] VITALS: BP 124/82; PULSE 68; RESP 18; O2SAT 98
[2022-06-15 12:46] LABS: Anion Gap 9.1 mEq/L (5-15); Blood Urea Nitrogen 29 mg/dl (9-20); Calcium 8.8 mg/dl (8.4-10.2); Carbon Dioxide 26 mmol/L (22.0-30.0); Chloride 104 mmol/L (98-107); Creatinine Clearance Estimated 46 mL/min (50-200); Estimated Glomerular Filt Rate 39 ml/min (>60); GFR (African American) 47 ML/MIN (>60); Glucose 152 mg/dl (74-100); Magnesium 1.1 mg/dl (1.6-2.3); Potassium 5.1 mmoL/L (3.5-5.1); Sodium 134 mmol/L (136-145)
[2022-06-15 13:40] VITALS: BP 118/75; PULSE 67; RESP 18
== END 2022-06-15 13:40 | disposition home or self-care (01) ==
PROVIDERS: PCP Emergency Medicine; Visit Provider Nurse Practitioner
DX: E83.42 Hypomagnesemia (principal)
CPT/HCPCS: 80048; 83735; 96365; J3475

== ENCOUNTER 2022-06-22 12:01 | Outpatient (CLI) | payer OTHER, SELFPAY ==
[2022-06-22 12:11] VITALS: BMI 39.5
[2022-06-22 12:14] VITALS: BP 127/79; PULSE 68; RESP 18; TEMP 36.7; O2SAT 99
[2022-06-22 12:30] LABS: Anion Gap 10.1 mEq/L (5-15); Blood Urea Nitrogen 21 mg/dl (9-20); Calcium 8.8 mg/dl (8.4-10.2); Carbon Dioxide 25 mmol/L (22.0-30.0); Chloride 103 mmol/L (98-107); Creatinine Clearance Estimated 101 mL/min (50-200); Estimated Glomerular Filt Rate 52 ml/min (>60); GFR (African American) 63 ML/MIN (>60); Glucose 130 mg/dl (74-100); Magnesium 1.1 mg/dl (1.6-2.3); Potassium 5.1 mmoL/L (3.5-5.1); Sodium 133 mmol/L (136-145)
[2022-06-22 12:44] VITALS: BP 129/80; PULSE 70; RESP 18; O2SAT 99
[2022-06-22 13:20] VITALS: BP 117/76; PULSE 74; RESP 18; O2SAT 99
== END 2022-06-22 13:20 | disposition home or self-care (01) ==
LOC: INF 12:02
PROVIDERS: PCP Emergency Medicine; Visit Provider Physician Assistant
DX: E83.42 Hypomagnesemia (principal)
CPT/HCPCS: 80048; 83735; 96365; J3475

== ENCOUNTER 2022-06-29 12:29 | Outpatient (CLI) | payer OTHER, SELFPAY ==
[2022-06-29 12:34] VITALS: BMI 39.9
[2022-06-29 12:52] VITALS: BP 132/86; PULSE 86; RESP 18; TEMP 36.7; O2SAT 98
[2022-06-29 13:04] LABS: Anion Gap 12.7 mEq/L (5-15); Blood Urea Nitrogen 16 mg/dl (9-20); Calcium 9.8 mg/dl (8.4-10.2); Carbon Dioxide 27 mmol/L (22.0-30.0); Chloride 98 mmol/L (98-107); Creatinine Clearance Estimated 102 mL/min (50-200); Estimated Glomerular Filt Rate 52 ml/min (>60); GFR (African American) 63 ML/MIN (>60); Glucose 167 mg/dl (74-100); Potassium 4.7 mmoL/L (3.5-5.1); Sodium 133 mmol/L (136-145)
[2022-06-29 14:07] VITALS: BP 130/86; PULSE 83; RESP 18; O2SAT 98
--- NOTE | 2022-06-29 14:15 | PC.NURSE ---
Aracelis Hills called RN and reported magnesium 1.0. RN repeated and verified pt name, , and lab value. Result called to Dr. García, no new orders noted.
== END 2022-06-29 14:00 | disposition home or self-care (01) ==
LOC: INF 12:29
PROVIDERS: PCP Emergency Medicine; Visit Provider Internal Medicine
DX: E83.42 Hypomagnesemia (principal)
CPT/HCPCS: 80048; 83735; 96365; J3475

== ENCOUNTER 2022-07-13 12:27 | Outpatient (CLI) | payer OTHER, SELFPAY ==
[2022-07-13 12:32] VITALS: BMI 41.0
[2022-07-13 12:44] VITALS: BP 112/52; PULSE 78; RESP 18; TEMP 36.3; O2SAT 97
[2022-07-13 12:51] LABS: Chloride 105 mmol/L (98-107); Sodium 138 mmol/L (136-145)
[2022-07-13 12:52] LABS: Potassium 4.6 mmoL/L (3.5-5.1)
[2022-07-13 12:54] LABS: Anion Gap 8.6 mEq/L (5-15); Blood Urea Nitrogen 22 mg/dl (9-20); Carbon Dioxide 29 mmol/L (22.0-30.0); Creatinine Clearance Estimated 105 mL/min (50-200); Estimated Glomerular Filt Rate 52 ml/min (>60); GFR (African American) 63 ML/MIN (>60)
[2022-07-13 12:55] LABS: Calcium 7.9 mg/dl (8.4-10.2); Glucose 148 mg/dl (74-100); Magnesium 1.1 mg/dl (1.6-2.3)
[2022-07-13 14:04] VITALS: BP 120/62; PULSE 77; RESP 18; O2SAT 97
== END 2022-07-13 14:08 | disposition home or self-care (01) ==
LOC: INF 12:27
PROVIDERS: PCP Emergency Medicine; Visit Provider Physician Assistant
DX: E83.42 Hypomagnesemia (principal)
CPT/HCPCS: 80048; 83735; 96365; J3475

== ENCOUNTER 2022-07-27 12:25 | Outpatient (CLI) | payer OTHER, SELFPAY ==
[2022-07-27 12:25] VITALS: BMI 39.9
[2022-07-27 12:56] LABS: Chloride 94 mmol/L (98-107); Potassium 4.2 mmoL/L (3.5-5.1); Sodium 135 mmol/L (136-145)
[2022-07-27 12:59] LABS: Anion Gap 18.2 mEq/L (5-15); Blood Urea Nitrogen 19 mg/dl (9-20); Calcium 8.4 mg/dl (8.4-10.2); Carbon Dioxide 27 mmol/L (22.0-30.0); Creatinine Clearance Estimated 71 mL/min (50-200); Estimated Glomerular Filt Rate 35 ml/min (>60); GFR (African American) 42 ML/MIN (>60); Glucose 165 mg/dl (74-100)
[2022-07-27 13:02] LABS: Magnesium 0.9 mg/dl (1.6-2.3)
--- NOTE | 2022-07-27 13:06 | PC.NURSE ---
Sabas PLASENCIA CALLED AT 1304 TO REPORT CRITICAL MAG LEVEL AT 0.9 MG; RN REPEATED PT NAME, , CRITICAL RESULT. RESULTS WERE CALLED TO ; ORDERS WERE WRITTEN ALREADY FOR MAG TRANSFUSION
[2022-07-27 13:25] VITALS: BP 102/74; PULSE 68; RESP 20; TEMP 36.9; O2SAT 95
[2022-07-27 14:25] VITALS: BP 102/74; PULSE 68; RESP 20; TEMP 36.9; O2SAT 95
== END 2022-07-27 14:30 | disposition home or self-care (01) ==
LOC: INF 12:25
PROVIDERS: PCP Emergency Medicine; Visit Provider Physician Assistant
DX: E83.42 Hypomagnesemia (principal)
CPT/HCPCS: 80048; 83735; 96365; J3475

== ENCOUNTER 2022-08-03 12:33 | Outpatient (CLI) | payer OTHER, SELFPAY ==
[2022-08-03 12:40] VITALS: BMI 41.0
[2022-08-03 13:02] VITALS: BP 125/83; PULSE 72; RESP 18; TEMP 36.4; O2SAT 97
[2022-08-03 13:03] LABS: Chloride 99 mmol/L (98-107)
[2022-08-03 13:04] LABS: Potassium 4.7 mmoL/L (3.5-5.1); Sodium 136 mmol/L (136-145)
[2022-08-03 13:07] LABS: Anion Gap 14.7 mEq/L (5-15); Blood Urea Nitrogen 25 mg/dl (9-20); Calcium 8.7 mg/dl (8.4-10.2); Carbon Dioxide 27 mmol/L (22.0-30.0); Creatinine Clearance Estimated 105 mL/min (50-200); Estimated Glomerular Filt Rate 52 ml/min (>60); GFR (African American) 63 ML/MIN (>60); Glucose 158 mg/dl (74-100)
--- NOTE | 2022-08-03 13:09 | PC.NURSE ---
Aracelis Hills called RN at 1307 to report magnesium level-1.0. RN repeated and verified pt name, , and lab value. Result called to Dr. García's office, no new orders noted. Pt has standing order to receive mg iv weekly.
[2022-08-03 14:10] VITALS: BP 129/87; PULSE 78; RESP 18; O2SAT 97
== END 2022-08-03 14:10 | disposition home or self-care (01) ==
LOC: INF 12:34
PROVIDERS: PCP Emergency Medicine; Visit Provider Internal Medicine
DX: E83.42 Hypomagnesemia (principal)
CPT/HCPCS: 80048; 83735; 96365; J3475

== ENCOUNTER 2022-08-11 12:00 | Outpatient (CLI) | payer OTHER, SELFPAY ==
[2022-08-11 12:09] VITALS: BMI 42.5
[2022-08-11 12:26] VITALS: BP 134/77; PULSE 76; RESP 18; TEMP 36.2; O2SAT 98
[2022-08-11 12:36] LABS: Chloride 96 mmol/L (98-107); Potassium 4.2 mmoL/L (3.5-5.1); Sodium 135 mmol/L (136-145)
[2022-08-11 12:39] LABS: Anion Gap 13.2 mEq/L (5-15); Blood Urea Nitrogen 25 mg/dl (9-20); Calcium 8.5 mg/dl (8.4-10.2); Carbon Dioxide 30 mmol/L (22.0-30.0); Creatinine Clearance Estimated 55 mL/min (50-200); Estimated Glomerular Filt Rate 48 ml/min (>60); GFR (African American) 59 ML/MIN (>60); Glucose 131 mg/dl (74-100)
[2022-08-11 12:56] VITALS: BP 129/79; PULSE 74; RESP 18; O2SAT 98
--- NOTE | 2022-08-11 13:22 | PC.NURSE ---
08/11/22 1246 Aracelis Hills called Isi Granados RN to report Mag-1.0. RN repeated and verified pt name, , and lab value. Result called to , no new orders noted-pt has standing orders for magnesium iv infusion weekly.
== END 2022-08-11 13:44 | disposition home or self-care (01) ==
LOC: INF 12:01
PROVIDERS: PCP Emergency Medicine; Visit Provider Physician Assistant
DX: E83.42 Hypomagnesemia (principal)
CPT/HCPCS: 80048; 83735; 96365; J3475

== ENCOUNTER 2022-08-18 12:51 | Outpatient (CLI) | payer OTHER, SELFPAY ==
[2022-08-18 12:55] VITALS: BMI 42.5
[2022-08-18 13:22] LABS: Chloride 99 mmol/L (98-107)
[2022-08-18 13:23] LABS: Potassium 4.3 mmoL/L (3.5-5.1); Sodium 137 mmol/L (136-145)
[2022-08-18 13:25] LABS: Blood Urea Nitrogen 16 mg/dl (9-20)
[2022-08-18 13:26] LABS: Anion Gap 17.3 mEq/L (5-15); Calcium 8.4 mg/dl (8.4-10.2); Carbon Dioxide 25 mmol/L (22.0-30.0); Creatinine Clearance Estimated 59 mL/min (50-200); Estimated Glomerular Filt Rate 52 ml/min (>60); GFR (African American) 63 ML/MIN (>60); Glucose 184 mg/dl (74-100); Magnesium 1.1 mg/dl (1.6-2.3)
[2022-08-18 13:29] VITALS: BP 110/75; PULSE 66; RESP 18; TEMP 36.4; O2SAT 97
[2022-08-18 14:00] VITALS: BP 107/71; PULSE 67; RESP 18; O2SAT 97
[2022-08-18 14:35] VITALS: BP 114/69; PULSE 64; RESP 18; O2SAT 96
== END 2022-08-18 14:45 | disposition home or self-care (01) ==
LOC: INF 12:51
PROVIDERS: Internal Medicine; PCP Emergency Medicine; Visit Provider Physician Assistant
DX: E83.42 Hypomagnesemia (principal)
CPT/HCPCS: 80048; 83735; 96365; J3475

== ENCOUNTER 2022-08-25 13:22 | Outpatient (CLI) | payer OTHER, SELFPAY ==
[2022-08-25 13:32] VITALS: BMI 42.7
[2022-08-25 13:47] VITALS: BP 120/78; PULSE 87; RESP 18; TEMP 36.4; O2SAT 98
[2022-08-25 13:55] LABS: Chloride 98 mmol/L (98-107); Sodium 134 mmol/L (136-145)
[2022-08-25 13:56] LABS: Potassium 4.3 mmoL/L (3.5-5.1)
[2022-08-25 13:58] LABS: Anion Gap 12.3 mEq/L (5-15); Blood Urea Nitrogen 23 mg/dl (9-20); Carbon Dioxide 28 mmol/L (22.0-30.0); Creatinine Clearance Estimated 52 mL/min (50-200); Estimated Glomerular Filt Rate 45 ml/min (>60); GFR (African American) 54 ML/MIN (>60)
[2022-08-25 13:59] LABS: Calcium 8.7 mg/dl (8.4-10.2); Glucose 130 mg/dl (74-100)
--- NOTE | 2022-08-25 14:06 | PC.NURSE ---
Aracelis Hills called Marisela Castellanos RN at 1401 to report mg level-1.0. RN repeated and verified pt name, , and lab value. Result called to Dr. García, no new orders noted-pt has standing orders for mag iv weekly.
[2022-08-25 14:20] VITALS: BP 122/81; PULSE 82; RESP 18; O2SAT 98
[2022-08-25 15:15] VITALS: BP 114/69; PULSE 84; RESP 18; O2SAT 98
== END 2022-08-25 15:20 | disposition home or self-care (01) ==
LOC: INF 13:23
PROVIDERS: PCP Emergency Medicine; Visit Provider Internal Medicine
DX: E83.42 Hypomagnesemia (principal)
CPT/HCPCS: 80048; 83735; 96365; J3475

== ENCOUNTER → 2022-09-16 13:26 | Outpatient (CLI) | payer OTHER, SELFPAY ==
--- NOTE | 2022-09-16 13:30 | XR_ITS ---
FINAL REPORT CLINICAL HISTORY: dyspnea x 1 week question bronchitis COMPARISON: 04/13/2022 FINDINGS: TWO-VIEW CHEST The heart size is normal. The mediastinum is normal. There are mild chronic changes at the bases. There is a calcified right paratracheal lymph node. There is no pneumothorax. IMPRESSION: No acute cardiopulmonary process. Reviewed, Interpreted and Dictated by Hardeep Gerber MD Transcribed by Misti Casey Authenticated and [facility]
== END ==
PROVIDERS: PCP Emergency Medicine; Visit Provider Physician Assistant
DX: R06.00 Dyspnea, unspecified (principal); I25.10 Atherosclerotic heart disease of native coronary artery without angina pectoris; I50.20 Unspecified systolic (congestive) heart failure; E11.69 Type 2 diabetes mellitus with other specified complication; E78.5 Hyperlipidemia, unspecified; I10 Essential (primary) hypertension; Z98.61 Coronary angioplasty status; Z79.84 Long term (current) use of oral hypoglycemic drugs
CPT/HCPCS: 71046

== ENCOUNTER 2022-09-21 12:37 | Outpatient (CLI) | payer OTHER, SELFPAY ==
[2022-09-21 12:53] VITALS: BMI 42.7
[2022-09-21 13:18] VITALS: BP 125/82; PULSE 62; RESP 18; TEMP 36.6; O2SAT 97
[2022-09-21 13:30] LABS: Anion Gap 14.3 mEq/L (5-15); Blood Urea Nitrogen 27 mg/dl (9-20); Calcium 8.6 mg/dl (8.4-10.2); Carbon Dioxide 32 mmol/L (22.0-30.0); Chloride 95 mmol/L (98-107); Creatinine Clearance Estimated 52 mL/min (50-200); Estimated Glomerular Filt Rate 45 ml/min (>60); GFR (African American) 54 ML/MIN (>60); Glucose 134 mg/dl (74-100); Potassium 4.3 mmoL/L (3.5-5.1); Sodium 137 mmol/L (136-145)
[2022-09-21 13:36] LABS: Magnesium 0.9 mg/dl (1.6-2.3)
[2022-09-21 13:48] VITALS: BP 121/76; PULSE 68; RESP 18; O2SAT 97
[2022-09-21 14:37] VITALS: BP 122/69; PULSE 62; RESP 18; O2SAT 97
--- NOTE | 2022-09-21 14:47 | PC.NURSE ---
09/21/22 1335 Aracelis Hills called Evelyne Clement RN and reported mag level 0.9. RN repeated and verified pt name, , and lab value. Result called to Chloe Amos APRN-no new orders noted. pt has standing order to get iv mag weekly.
== END 2022-09-21 14:38 | disposition home or self-care (01) ==
LOC: INF 12:39
PROVIDERS: Nurse Practitioner; PCP Emergency Medicine; Visit Provider Physician Assistant
DX: E83.42 Hypomagnesemia (principal)
CPT/HCPCS: 80048; 83735; 96365; J3475

== ENCOUNTER → 2022-09-22 14:22 | Outpatient (CLI) | payer OTHER, SELFPAY ==
--- NOTE | 2022-09-22 14:23 | US_ITS ---
FINAL REPORT CLINICAL HISTORY: claudication, current smoker, HTN, DM, hyperlipidemia, hx OR, CAD, previous angioplasty FINDINGS: ANKLE-BRACHIAL PRESSURE INDICES Pressure indices are as follows: RIGHT LOWER EXTREMITY: Ankle-brachial pressure index: 1.0 Comments: Normal LEFT LOWER EXTREMITY: Ankle-brachial pressure index: 1.0 Comments: Normal CONCLUSION: No evidence of significant obstructive peripheral vascular disease of the lower extremities Reviewed, Interpreted and Dictated by Trent Morales III, MD Transcribed by Janet Crystal Authenticated and [facility]
== END ==
PROVIDERS: PCP Emergency Medicine; Visit Provider Physician Assistant
DX: R06.00 Dyspnea, unspecified (principal); I25.10 Atherosclerotic heart disease of native coronary artery without angina pectoris; I25.5 Ischemic cardiomyopathy; I50.20 Unspecified systolic (congestive) heart failure; E11.69 Type 2 diabetes mellitus with other specified complication; E78.5 Hyperlipidemia, unspecified; R60.9 Edema, unspecified; I73.9 Peripheral vascular disease, unspecified; Z95.5 Presence of coronary angioplasty implant and graft; Z98.61 Coronary angioplasty status
CPT/HCPCS: 93306; 93923

== ENCOUNTER → 2022-10-15 12:10 | Outpatient (CLI) | payer OTHER, SELFPAY ==
[2022-10-15 13:28] LABS: Adenovirus,PCR Not Detected (NotDetected); Bordetella Pertussis Not Detected (NotDetected); Chlamydophila Pneumoniae, PCR Not Detected (NotDetected); Coronavirus 19, PCR Not Detected (NotDetected); Coronavirus 229E Not Detected (NotDetected); Coronavirus NL63 Not Detected (NotDetected); Coronavirus OC43 Not Detected (NotDetected); Coronovirus HKU1,PCR Not Detected (NotDetected); Human Metapneumovirus Not Detected (NotDetected); Influenza A, PCR Not Detected (NotDetected); Influenza AH1, 2009 Not Detected (NotDetected); Influenza AH1, PCR Not Detected (NotDetected); Influenza AH3,PCR Not Detected (NotDetected); Influenza B, PCR Not Detected (NotDetected); Mycoplasma Pneumoniae, PCR Not Detected (NotDetected); Parainfluenza 1, PCR Not Detected (NotDetected); Parainfluenza 2, PCR Not Detected (NotDetected); Parainfluenza 3, PCR Not Detected (NotDetected); Parainfluenza 4, PCR Not Detected (NotDetected); Respiratory Syncytial Virus Not Detected (NotDetected); Rhinovirus/Enterovirus Not Detected (NotDetected)
== END ==
PROVIDERS: PCP Nurse Practitioner Family; Visit Provider Nurse Practitioner Family
DX: R06.09 Other forms of dyspnea (principal); J44.9 Chronic obstructive pulmonary disease, unspecified
CPT/HCPCS: 87581; 87632; 87798; C9803; U0003; U0005

== ENCOUNTER 2022-10-22 04:48 | Observation (INO) | payer OTHER, SELFPAY ==
[2022-10-22] VITALS (8 sets, daily range): BP systolic 119–164; BP diastolic 77–99; PULSE 73–100; RESP 18–22; TEMP 36.6–37; O2SAT 91–98; BMI 55.9; BMI 44.3; BMI 48.4
--- NOTE | 2022-10-22 04:49 | CT_ITS ---
PROCEDURE INFORMATION: Exam: CT Abdomen And Pelvis Without Contrast Exam date and time: 10/22/2022 5:35 AM Age: 57 years old Clinical indication: Mass, lump, or swelling; Other: Swollen scrotum; Additional info: Swollen scrotum, poor urinary output TECHNIQUE: Imaging protocol: Computed tomography of the abdomen and pelvis without contrast. Radiation optimization: All CT scans at this facility use at least one of these dose optimization techniques: automated exposure control; mA and/or kV adjustment per patient size (includes targeted exams where dose is matched to clinical indication); or iterative reconstruction. COMPARISON: ABDPELW CT ABD PELVIS W/ CONTRAST 06/04/2017 10:07 AM FINDINGS: Liver: Normal. No mass. Gallbladder and bile ducts: Prior cholecystectomy. Pancreas: Normal. No ductal dilation. Spleen: Normal. No splenomegaly. Adrenal glands: Normal. No mass. Kidneys and ureters: No hydronephrosis, hydroureter, nephrolithiasis, or urolithiasis is present. Stomach and bowel: Unremarkable. No obstruction. No mucosal thickening. Appendix: No evidence of appendicitis. Intraperitoneal space: Unremarkable. No free air. No significant fluid collection. Vasculature: Unremarkable. No abdominal aortic aneurysm. Lymph nodes: Unremarkable. No enlarged lymph nodes. Urinary bladder: Leo catheter decompresses the bladder. Reproductive: The scrotum is distended with fluid. Bones/joints: Unremarkable. No acute fracture. Soft tissues: Subcutaneous edema is seen along the anterior abdominal wall. IMPRESSION: 1. The scrotum is distended with fluid which may represent large bilateral hydroceles. Consider scrotal sonography for further evaluation. 2. No evidence of renal stone or obstruction.
[2022-10-22 05:01] LABS: Microscopic, Urine URINE MICROSCOPIC (MICROSCOPIC)
[2022-10-22 05:03] LABS: Basophils # 0.1 K/mm3 (0-0.2); Basophils % 0.6 % (0.1-2.0); Eosinophils # 0.2 K/mm3 (0.0-0.4); Eosinophils % 2.3 % (0.1-12.0); Hematocrit 42.6 % (42.0-52.0); Hemoglobin 13.7 g/dL (14.1-18.0); Lymphocytes # 1.9 K/mm3 (0.7-4.5); Lymphocytes % 22.2 % (10-50); Mean Corpuscular HGB Conc 32.2 g/dL (31.8-35.4); Mean Corpuscular Hemoglobin 32.1 pg (27.0-31.2); Mean Corpuscular Volume 99.6 fl (80-94); Mean Platelet Volume 7.7 fl (7.4-10.4); Monocytes # 0.6 K/mm3 (0.1-1.0); Monocytes % 6.9 % (1.7-9.3); Neutrophils # 5.9 K/mm3 (1.8-7.8); Platelet Count 387 K/mm3 (142-424); Red Blood Count 4.28 M/mm3 (4.60-6.20); Red Cell Distribution Width 17.4 % (11.5-17.5); White Blood Count 8.7 K/mm3 (4.8-10.8)
[2022-10-22 05:07] LABS: Appearance,Urine CLEAR (Clear); Bilirubin,Urine Negative (Negative); Blood, Urine TRACE-I (Negative); Color,Urine YELLOW (Yellow); Glucose,Urine (UA) Negative (Negative); Ketones,Urine Negative (Negative); Leukocyte Esterase,Urine Negative (Negative); Nitrate,Urine Negative (Negative); Protein,Urine TRACE (Negative); Specific Gravity, Urine 1.015 (1.005-1.030); Urobilinogen,Urine 0.2 EU/dl (0.2)
[2022-10-22 05:11] LABS: Alanine Aminotransferase 24 U/L (12-78); Albumin Level 4.3 g/dl (3.5-5.0); Albumin/Globulin Ratio 1.5 (1.1-1.8); Alkaline Phosphatase 106 U/L (38-126); Amylase 49 U/L (30-110); Anion Gap 15.7 mEq/L (5-15); Aspartate Amino Transferase 23 U/L (17-59); Bilirubin,Total 0.5 mg/dl (0.2-1.3); Blood Urea Nitrogen 53 mg/dl (9-20); Calcium 8.4 mg/dl (8.4-10.2); Carbon Dioxide 24 mmol/L (22.0-30.0); Chloride 96 mmol/L (98-107); Creatinine Clearance Estimated 31 mL/min (50-200); Estimated Glomerular Filt Rate 25 ml/min (>60); GFR (African American) 30 ML/MIN (>60); Globulin 2.8 g/dL (1.3-3.2); Glucose 156 mg/dl (74-100); Lactic Acid 1.8 mmol/L (0.7-2.1); Lipase 131 U/L (23-300); Potassium 4.7 mmoL/L (3.5-5.1); Sodium 131 mmol/L (136-145); Total Protein,Serum 7.1 g/dl (6.3-8.2)
[2022-10-22 05:21] LABS: Bacteria,Urine Trace /lpf; RBC,Urine Occasional #/hpf (0-3)
[2022-10-22 05:30] LABS: Procalcitonin 0.124 ng/mL (0.0-2.0)
[2022-10-22 05:34] LABS: NT Pro Brain Natriuretic Pep. 10100 pg/mL (0-125)
[2022-10-22 05:51] LABS: Erythrocyte Sedimentation Rate 15 mm/hr (0-20)
--- NOTE | 2022-10-22 06:16 | US_ITS ---
FINAL REPORT CLINICAL HISTORY: enlarged scrotum FINDINGS: US SCROTUM Limited sonographic images of the scrotum were obtained. The right testicle measures 4.2 x 3.1 x 2.2 cm. The left testicle measures 3.8 x 2.8 x 2.8 cm. There is a probable small cyst in the right testicle measuring 4 mm. Blood flow is seen to both testicles. There are small hydroceles. There is bilateral epididymi enlargement, likely represents bilateral epididymitis. There is marked scrotal swelling/edema. IMPRESSION: Findings likely represent bilateral epididymitis. Probable cyst in the right testicle. Marked scrotal swelling/edema. Reviewed, Interpreted and Dictated by Trent Morales III, MD Transcribed by Misti Casey Authenticated and [facility]
--- NOTE | 2022-10-22 06:18 | XR_ITS ---
PROCEDURE INFORMATION: Exam: XR Chest Exam date and time: 10/22/2022 6:50 AM Age: 57 years old Clinical indication: Shortness of breath; Patient HX: SOA, HX chf; Additional info: HX of chf TECHNIQUE: Imaging protocol: Radiologic exam of the chest. Views: 1 view. COMPARISON: CR XR CHEST 2V 09/16/2022 1:31 PM FINDINGS: Lungs: Unremarkable. No consolidation. Pleural spaces: Unremarkable. No pleural effusion. No pneumothorax. Heart/Mediastinum: Unremarkable. No cardiomegaly. Bones/joints: Unremarkable. IMPRESSION: No acute findings.
--- NOTE | 2022-10-22 06:39 | HMH.EDUROGM ---
Discharge Plan Disposition Patient Disposition: Admitted As Inpatient Chief Complaint: Urogenital-Male Clinical Impressions Clinical Impression: CHF (congestive heart failure), CHINTAN (acute kidney injury), Scrotal edema Discharge ED Provider: Chacho Gutierrez Male Urogenital HPI General Chief complaint: Urogenital-Male Stated complaint: scrotum edema Time Seen by Provider: 10/22/22 05:00 Mode of Arrival: EMS Source of Information: Patient, EMS and Medical Record Limitations: No Limitations Description of Symptoms (Recalled from ER Triage Doc. by RN): Pt c/o scrotal swelling since Wednesday with lower abdominal pain. History of Present Illness HPI Narrative: pt reports scrotal swelling over the last few days and has increased sob - no fever - has been on abx for lt fifth finger possible cellulitis - MD Complaint: other (scrotal swelling ) Onset (ago): day(s) Duration: constant Severity: moderate Related Data Home Medications Medication Instructions Recorded Confirmed nitroglycerin 0.4 mg sublingual 0.4 mg sublingual NEEDED PRN 11/11/20 10/22/22 tablet Chest Pain pantoprazole 40 mg tablet,delayed 40 mg PO DAILY acid reflux 11/11/20 10/22/22 release ergocalciferol (vitamin D2) 1,250 1,250 mcg PO WEEKLY Supplement 05/22/21 10/22/22 mcg (50,000 unit) capsule famotidine 40 mg tablet 40 mg PO BID acid reflux 05/22/21 10/22/22 aspirin 81 mg tablet,delayed 81 mg PO DAILY heart health 09/15/21 10/22/22 release allopurinol 300 mg tablet 300 mg PO DAILYP PRN gout 11/10/21 10/22/22 furosemide 40 mg tablet 40 mg PO DAILY Fluid 06/22/22 10/22/22 amlodipine 10 mg tablet 10 mg PO DAILY blood pressure 08/03/22 10/22/22 lisinopril 2.5 mg tablet 2.5 mg PO DAILY blood pressure 08/03/22 10/22/22 metformin 500 mg tablet 500 mg PO BID Diabetes 08/03/22 10/22/22 rosuvastatin 5 mg tablet 5 mg PO HS Cholesterol 08/03/22 10/22/22 magnesium sulfate 4 mEq/mL (50 %) 2 g IV WEEKLY Supplement 09/21/22 10/22/22 injection solution rivaroxaban 15 mg tablet (Xarelto) 15 mg PO DAILY Blood thinner 09/21/22 10/22/22 spironolactone 25 mg tablet 25 mg PO .M, W, F Fluid 09/21/22 10/22/22 (Aldactone) albuterol sulfate 90 mcg/actuation 1 puff inhalation Q4HP PRN asthma 10/22/22 10/22/22 aerosol inhaler (ProAir HFA) bisoprolol fumarate 10 mg tablet 10 mg PO HS Hypertension 10/22/22 10/22/22 budesonide-formoterol HFA 160 1 puff inhalation Q4HP PRN asthma 10/22/22 10/22/22 mcg-4.5 mcg/actuation aerosol inhaler (Symbicort) clopidogrel 75 mg tablet 75 mg PO DAILY antiplatelet 10/22/22 10/22/22 fluticasone propionate 50 1 spray intranasal DAILY allergies 10/22/22 10/22/22 mcg/actuation nasal spray,suspension levothyroxine 50 mcg tablet 50 mcg PO DAILY hypothyroidism 10/22/22 10/22/22 loratadine 10 mg tablet 10 mg PO DAILY allergies 10/22/22 10/22/22 polyethylene glycol 3350 17 17 g PO DAILY constipation 10/22/22 10/22/22 gram/dose oral powder (Miralax) Previous Rx's Medication Instructions Recorded cholecalciferol (vitamin D3) 125 5,000 unit PO DAILY Supplement #90 04/30/21 mcg (5,000 unit) capsule caps Allergies Allergy/AdvReac Type Severity Reaction Status Date / Time No Known Allergies Allergy Verified 10/15/22 11:23 [facility] Disclaimer: The information contained in this section may have been updated after the patient was seen, as this information can be updated by other users. Medical History Anxiety and depression Atypical angina Bronchitis CAD (coronary artery disease) Cardiomyopathy CHF (congestive heart failure) Cough Diabetes mellitus DVT (deep venous thrombosis) Dyspnea GERD (gastroesophageal reflux disease) Glaucoma History of sinus problem HLD (hyperlipidemia) HTN (hypertension) Hypomagnesemia Hypothyroidism Myocardial infarct Otitis media, left PTSD (post-traumatic stress disorder) Renal insufficiency Typical angina Surgical History (Rev
--- NOTE | 2022-10-22 06:43 | EXP.HP ---
History of Present Illness *Admission Date: 10/22/22 *Reason for visit:: Scrotal edema *History of present illness: This is a 57 year-old male with past medical history of HFrEF, Atrial fibrillation, COPD, T2dm who presents to the emergency department this morning for complaints of scrotal edema. He reports scrotal edema that started approximately 3 days ago and has worsened causing him to continue urination. He also endorses all of her edema with associated dyspnea on exertion. He reports a 40 pound weight gain in approximately 3 weeks. Reports that he has been placed on Lasix every other day with the addition of spironolactone his regimen for his heart failure. He denies fever but does endorse mild cough and shortness of breath Urgent department work-up significant for volume overload as clinical presentation. He does have a BNP of 10,000. CHINTAN with a creatinine of 2.7 with baseline of 1.6. CT of the abdomen pelvis likely hydrocele but no other On my exam patient is hypoxic to the low 80s on room air while resting. He does have increased oxygen saturation when he is awake and speaking. +3 pitting edema noted to bilateral lower extremities gross scrotal swelling noted. Due to the above mentioned complaints he will be admitted to the hospitalist service for further evaluation and mangement. [facility] Disclaimer: The information contained in this section may have been updated after the patient was seen, as this information can be updated by other users. Medical History (Updated 10/22/22 @ 10:36 by Diann Parker RN) Anxiety and depression Atypical angina Bronchitis CAD (coronary artery disease) Cardiomyopathy CHF (congestive heart failure) Cough Diabetes mellitus DVT (deep venous thrombosis) Dyspnea Femur fracture GERD (gastroesophageal reflux disease) Glaucoma History of sinus problem HLD (hyperlipidemia) HTN (hypertension) Hypomagnesemia Hypothyroidism Myocardial infarct Otitis media, left PTSD (post-traumatic stress disorder) Renal insufficiency Typical angina Surgical History (Updated 10/22/22 @ 10:36 by Diann Parker RN) History of cholecystectomy History of heart artery stent Family History Other Family history of cancer Family history of diabetes mellitus type II Family history of hypertension Social History (Updated 10/22/22 @ 10:36 by Diann Parker RN) Smoking Status: Current every day smoker tobacco type: cigarettes packs per day: 1 second hand exposure: No alcohol intake: current substance use type: marijuana current occupational status: disabled Travel in the last 8 weeks: None household members: family housing: apartment lives independently: Yes marital status: single education level: high school service: No long-term: No current occupational exposures/hazards: No caffeine: Yes Review of Systems Review of Systems Review of systems:: pertinent systems reviewed and negative unless documented below Constitutional Constitutional: Reports as per HPI *Cardiovascular Cardiovascular: Reports as per HPI *Respiratory Respiratory: Reports wheezing *Gastrointestinal Gastrointestinal: Reports as per HPI *Genitourinary Genitourinary: Reports as per HPI and Reports urinary hesitancy *Musculoskeletal Musculoskeletal: Reports system reviewed and no additional complaints, except as documented *Neurologic Neurologic: Reports system reviewed and no additional complaints, except as documented Allergic/Immunologic Allergic/Immunologic: Reports wheezing Meds Home Medications and Allergies Home Medications Medication Instructions Recorded Confirmed Type nitroglycerin 0.4 mg sublingual 0.4 mg sublingual NEEDED PRN 11/11/20 10/22/22 History tablet Chest Pain pantoprazole 40 mg tablet,delayed 40 mg PO DAILY acid reflux 11/11/20 10/22/22 History release cholecalciferol (vitamin D3) 125 5,00
[2022-10-22 07:06] LABS: Coronavirus 19, PCR Not Detected (NotDetected); Influenza A, PCR Not Detected (NotDetected); Influenza B, PCR Not Detected (NotDetected)
--- NOTE | 2022-10-22 07:29 | PC.NURSE ---
Gave report to Diann Rogers RN
--- NOTE | 2022-10-22 08:52 | PC.NURSE ---
pt transported to second floor via stretcher at this time
[2022-10-22 13:05] LABS: Magnesium 1.3 mg/dl (1.6-2.3)
[2022-10-22 16:22] LABS: POC Glucose,Bedside 202 (70-110)
[2022-10-22 18:58] LABS: POC Glucose,Bedside 203 (70-110)
--- NOTE | 2022-10-22 19:58 | ECG_ITS ---
APPROVED REPORT Exam: Resting ECG HR:92 bpm ECG Measurements Heart Rate 92 AXES ME 148 P 53 QRSd 118 QRS 22 QT 391 T 91 QTc 441 Conclusion SINUS RHYTHM POSSIBLE LEFT ATRIAL ENLARGEMENT [-0.1mV P-WAVE IN V1/V2] INCOMPLETE RIGHT BUNDLE BRANCH BLOCK [90+ ms QRS DURATION, TERMINAL R IN V1/V2, 40+ ms S IN I/aVL/V4/V5/V6] ABNORMAL QRS-T ANGLE [QRS-T AXIS DIFFERENCE > 60] ABNORMAL ECG UNCONFIRMED REPORT Electronically signed by : Boaz Lopez MD 10/23/2022 09:46:36
[2022-10-23 00:51] LABS: POC Glucose,Bedside 151 (70-110)
[2022-10-23 04:00] VITALS: BP 131/77; PULSE 70; PULSE 71; RESP 20; TEMP 36.9; O2SAT 90; BMI 47.5
--- NOTE | 2022-10-23 04:13 | EXP.PN ---
Subjective *Date: 10/23/22 *Time: 14:03 Interval history: On exam this morning patient is resting comfortably. He reports improvement in his breathing and is oxygenating in the mid 90s on room air. Lower extremity edema has improved. Patient still complaining of scrotal edema and bladder spasms. Leo catheter in place with dark yellow urine noted. Currently is 6 L net negative on hospitalization. Exam Data for Last 24 hours Vital signs and Labs for Last 24 Hours: Temp Pulse Resp BP Pulse Ox 97.8 F 73 18 119/77 91 L 10/22/22 23:55 10/22/22 23:55 10/22/22 23:55 10/22/22 23:55 10/22/22 23:55 Laboratory Results - last 24 hr 10/22/22 04:45: Urine Color Yellow, Urine Appearance Clear, Urine pH 6.0, Ur Specific [place] 1.015, Urine Protein Trace, Urine Glucose (UA) Negative, Urine Ketones Negative, Urine Blood Trace-i, Urine Nitrate Negative, Urine Bilirubin Negative, Urine Urobilinogen 0.2, Ur Leukocyte Esterase Negative, Urine RBC Occasional, Urine Bacteria Trace 10/22/22 04:45: SARS-CoV-2 (PCR) Not detected, Influenza A Untype (PCR) Not detected, Influenza Type B (PCR) Not detected 10/22/22 04:59: WBC 8.7, RBC 4.28 L, Hgb 13.7 L, Hct 42.6, MCV 99.6 H, MCH 32.1 H, MCHC 32.2, RDW 17.4, Plt Count 387, MPV 7.7, Neut % (Auto) 68.0, Lymph % (Auto) 22.2, [place] % (Auto) 6.9, Eos % (Auto) 2.3, Baso % (Auto) 0.6, Neut # (Auto) 5.9, Lymph # (Auto) 1.9, [place] # (Auto) 0.6, Eos # (Auto) 0.2, Baso # (Auto) 0.1, ESR 15 10/22/22 04:59: Sodium 131 L, Potassium 4.7, Chloride 96 L, Carbon Dioxide 24, Anion Gap 15.7 H, BUN 53 H, Creatinine 2.70 H, Estimated Creat Clear 31, Estimated GFR 25 L, Est GFR ( Amer) 30 L, Glucose 156 H, Calcium 8.4, Total Bilirubin 0.5, AST 23, ALT 24, Alkaline Phosphatase 106, C-Reactive Protein 25.0 H, Total Protein 7.1, Albumin 4.3, Globulin 2.8, Albumin/Globulin Ratio 1.5, Amylase 49, Procalcitonin 0.124 10/22/22 04:59: Lactate 1.8 10/22/22 04:59: Lipase 131 10/22/22 05:00: NT-Pro-B Natriuret Pep 07037 H 10/22/22 05:00: Magnesium 1.3 L 10/22/22 16:06: POC Glucose 202 H 10/22/22 18:48: POC Glucose 203 H 10/23/22 00:45: POC Glucose 151 H I & O for Last 24 hours: Intake & Output 10/20/22 10/21/22 10/22/22 10/23/22 23:59 23:59 23:59 23:59 Intake Total 400 / 400 Output Total 6100 / 6100 Balance -5700 / -5700 Weight 148.948 kg *Routine HEENT Exam Head: Present normocephalic and atraumatic Eye: Present EOMI and PERRL ENT: Present mucous membranes moist *Routine Neck Exam Neck: Present supple and full ROM *Routine Respiratory Exam Comments: Mild wheezing noted bilaterally *Routine Cardiovascular Exam Cardiovascular: Present RRR, Normal S1 and Normal S2 *Routine Abdominal Exam Abdominal: Present soft and normoactive bowel sounds *Routine Rectal Exam Comments: Deferred *Routine Exam Patient deferred: scrotal exam (Edema noted) Testicular: bilateral: swelling *Routine Extremities Exam Extremities: Present full ROM, pulses intact and normal capillary refill Comments: +3 pitting edema to bilateral lower extremities *Routine Skin Exam Skin: Present intact and dry *Routine Neurological Exam Neurological: Present alert and CN II-XII intact Assessment and Plan *Assessment and plan (1) CHF (congestive heart failure): Status: Acute Category: Medical Code(s): I50.9 - Heart failure, unspecified (2) CHINTAN (acute kidney injury): Status: Acute Category: Medical Code(s): N17.9 - Acute kidney failure, unspecified (3) COPD (chronic obstructive pulmonary disease): Status: Acute Category: Medical Code(s): J44.9 - Chronic obstructive pulmonary disease, unspecified (4) Type 2 diabetes mellitus: Status: Chronic Qualifiers: Diabetes mellitus complication status: without complication Diabetes mellitus detention insulin use: without supervisor intermediates use Qualified Code(s): E11.9 - Type 2 diabetes mellitus without complications
--- NOTE | 2022-10-23 05:17 | PC.NURSE ---
Pt. has had no major changes since assessment. F/C in place and given flexeril and pyridium for complaints of spasms of the bladder.
[2022-10-23 05:47] LABS: POC Glucose,Bedside 145 (70-110)
[2022-10-23 07:07] LABS: Basophils # 0.1 K/mm3 (0-0.2); Basophils % 1.2 % (0.1-2.0); Eosinophils # 0.1 K/mm3 (0.0-0.4); Eosinophils % 0.9 % (0.1-12.0); Hematocrit 46.3 % (42.0-52.0); Hemoglobin 13.8 g/dL (14.1-18.0); Lymphocytes # 1.5 K/mm3 (0.7-4.5); Lymphocytes % 15.1 % (10-50); Mean Corpuscular HGB Conc 29.8 g/dL (31.8-35.4); Mean Corpuscular Volume 100.8 fl (80-94); Mean Platelet Volume 7.5 fl (7.4-10.4); Monocytes # 0.8 K/mm3 (0.1-1.0); Monocytes % 7.9 % (1.7-9.3); Neutrophils # 7.2 K/mm3 (1.8-7.8); Neutrophils % 74.9 % (37.0-80.0); Platelet Count 385 K/mm3 (142-424); Red Cell Distribution Width 17.1 % (11.5-17.5); White Blood Count 9.6 K/mm3 (4.8-10.8)
[2022-10-23 07:17] LABS: Chloride 100 mmol/L (98-107); Potassium 5.2 mmoL/L (3.5-5.1); Sodium 134 mmol/L (136-145)
[2022-10-23 07:18] LABS: Cholesterol 174 mg/dl (140-200); Magnesium 1.7 mg/dl (1.6-2.3); Triglycerides 91 mg/dl (30-150); VLDL Cholesterol 18 mg/dL (0-40)
[2022-10-23 07:19] LABS: Alanine Aminotransferase 19 U/L (12-78); Alkaline Phosphatase 82 U/L (38-126); Aspartate Amino Transferase 24 U/L (17-59); Bilirubin,Total 0.7 mg/dl (0.2-1.3); Blood Urea Nitrogen 42 mg/dl (9-20); Creatinine Clearance Estimated 40 mL/min (50-200); Estimated Glomerular Filt Rate 35 ml/min (>60); GFR (African American) 42 ML/MIN (>60); HDL Cholesterol 58 mg/dl (40-60)
[2022-10-23 07:20] LABS: Albumin Level 3.8 g/dl (3.5-5.0); Albumin/Globulin Ratio 1.4 (1.1-1.8); Anion Gap 11.2 mEq/L (5-15); Calcium 8.5 mg/dl (8.4-10.2); Carbon Dioxide 28 mmol/L (22.0-30.0); Globulin 2.7 g/dL (1.3-3.2); Glucose 144 mg/dl (74-100); Total Protein,Serum 6.5 g/dl (6.3-8.2)
[2022-10-23 07:30] LABS: Direct LDL Cholesterol 91.07 mg/dL (100-129)
[2022-10-23 08:00] VITALS: BP 126/72; PULSE 70; PULSE 74; RESP 20; TEMP 36.4; O2SAT 100
[2022-10-23 11:22] LABS: POC Glucose,Bedside 200 (70-110)
[2022-10-23 11:38] VITALS: BP 115/62; PULSE 81; RESP 20; TEMP 36.9; O2SAT 96
[2022-10-23 12:00] VITALS: PULSE 76
[2022-10-23 13:37] VITALS: BMI 47.3
--- NOTE | 2022-10-23 15:44 | PC.NURSE ---
PT IS RESTING IN BED. ALERT AND ORIENTED X4. PT HAS HAD MULTIPLE COMPLAINTS THIS SHIFT AND HAS BEEN UNSATISIFIED WITH ANY OF THE CARE THAT HAS BEEN PROVIDED. PT STATES HE IS VERY ANXIOUS AND FEELS LIKE HE IS GOING TO HAVE A PANIC ATTACK. NOTIFIED HOSPITALIST (ATIVAN 2 MG Q6H WAS ORDERED). SINCE ATIVAN PT HAS BEEN SLEEPING WITH OCCASIONAL PERIODS OF APNEA. RA O2 SATURATION WAS 82% WHILE SLEEPING. PT WAS ABLE TO AWAKEN EASILY. 2 L NC WAS APPLIED. O2 SATURATION IS NOW 92-97%. PT STATED THAT ATIVAN WAS EXACTLY WHAT I NEEDED TO CALM ME DOWN. PT HAS EDEMA NOTED TO BLE AND SCROTUM. PT AMBULATED TO THE BATHROOM WITH 1 ASSIST. STAFF ASSISTED PT WITH A SHOWER THIS MORNING. WILL CONTINUE TO MONITOR.
[2022-10-23 16:00] VITALS: BP 143/89; PULSE 80; RESP 20; TEMP 36.6; O2SAT 97
[2022-10-23 17:55] LABS: POC Glucose,Bedside 212 (70-110)
[2022-10-23 20:00] VITALS: BP 160/75; PULSE 82; RESP 20; TEMP 36.4; O2SAT 92
[2022-10-23 21:54] LABS: POC Glucose,Bedside 137 (70-110)
[2022-10-24] VITALS (7 sets, daily range): BP systolic 122–149; BP diastolic 61–87; PULSE 70–83; RESP 18–20; TEMP 36.4–37.1; O2SAT 91–95; BMI 47.1
[2022-10-24 01:29] LABS: POC Glucose,Bedside 136 (70-110)
--- NOTE | 2022-10-24 02:40 | EXP.PN ---
Subjective *Date: 10/24/22 *Time: 11:41 Interval history: exam for having discomfort from Panda and anxiety . has received 1mg of ativa about 20 minutes before I saw him. no signs of sedation . he also asked about having Panda removed, and being able to use o2 prn . nurse also reported that there was still bleeding at old SQ heparin injection sites., Exam Data for Last 24 hours Vital signs and Labs for Last 24 Hours: Temp Pulse Resp BP Pulse Ox 98.0 F 72 20 131/61 92 L 10/24/22 00:00 10/24/22 00:00 10/24/22 00:00 10/24/22 00:00 10/24/22 00:00 Laboratory Results - last 24 hr 10/23/22 05:33: POC Glucose 145 H 10/23/22 06:41: Magnesium 1.7 D, Triglycerides 91, Cholesterol 174, LDL Cholesterol Direct 91.07 L, VLDL Cholesterol 18, HDL Cholesterol 58, Cholesterol/HDL Ratio 3.0 10/23/22 06:41: WBC 9.6, RBC 4.60, Hgb 13.8 L, Hct 46.3, MCV 100.8 H, MCH 30.0, MCHC 29.8 L, RDW 17.1, Plt Count 385, MPV 7.5, Neut % (Auto) 74.9, Lymph % (Auto) 15.1, [place] % (Auto) 7.9, Eos % (Auto) 0.9, Baso % (Auto) 1.2, Neut # (Auto) 7.2, Lymph # (Auto) 1.5, [place] # (Auto) 0.8, Eos # (Auto) 0.1, Baso # (Auto) 0.1 10/23/22 06:41: Sodium 134 L, Potassium 5.2 H, Chloride 100, Carbon Dioxide 28, Anion Gap 11.2, BUN 42 H, Creatinine 2.00 H D, Estimated Creat Clear 40, Estimated GFR 35 L, Est GFR ( Amer) 42 L D, Glucose 144 H, Calcium 8.5, Total Bilirubin 0.7, AST 24, ALT 19, Alkaline Phosphatase 82, Total Protein 6.5, Albumin 3.8 D, Globulin 2.7, Albumin/Globulin Ratio 1.4 10/23/22 11:14: POC Glucose 200 H 10/23/22 17:49: POC Glucose 212 H 10/23/22 21:27: POC Glucose 137 H 10/24/22 01:22: POC Glucose 136 H I & O for Last 24 hours: Intake & Output 10/21/22 10/22/22 10/23/22 10/24/22 23:59 23:59 23:59 23:59 Intake Total 400 / 400 960 / 960 Output Total 6100 / 6100 1000 / 1000 Balance -5700 / -5700 -40 / -40 Weight 148.948 kg 145 kg Constitutional Constitutional: no acute distress and obese *Routine Exam Patient deferred: penile exam and scrotal exam Testicular: bilateral: swelling Scrotal: Present swelling Comments: panda in place scrotum is 20 cm around , not able to see penis. clear urine in panda bag. *Routine Skin Exam Skin: Present intact and ecchymosis Comments: some area of bruisig to fore arm, no other site found, small amount of fresh blood at last injection site Detailed Psychiatric Exam Comments: ocmplaint about comfort , needing to be able to rest and to have panda removed. Assessment and Plan *Assessment and plan (1) Type 2 diabetes mellitus: Status: Chronic Qualifiers: Diabetes mellitus complication status: without complication Diabetes mellitus radio tester insulin use: without skilled nursing use Qualified Code(s): E11.9 - Type 2 diabetes mellitus without complications Category: Medical Code(s): E11.9 - Type 2 diabetes mellitus without complications Plan no signs of sedation . will give extra dose of Ativan, 2. have o2 prn , try small amount of lidocaine to around Panda to drain to tip of penis to see if will bring comfort. discussed that if Panda was removed may not be able to replace, that to wait till morning being hoilday weekend and with bad weather if there was a complicaiton and not able to replace Panda if needed. still having some bleeding form old heprin injection sites , PTT ordered Rounded on patient after nurse practitioner. Personally examined and interviewed patient. Agree with exam findings and plan of care findings as documented.
[2022-10-24 03:12] LABS: Activated Partial Thrombo Time 25.6 seconds (22.8-30.6)
--- NOTE | 2022-10-24 04:48 | PC.NURSE ---
Spoke with Paco BARKER about pt being on ASA, Plavix and Hepain. He has some bleeding noted in scant amounts from previous Heparin shots. Pt had 1 ML OF LIDOCAINE put around the tip of his penis to help with pain.
[2022-10-24 05:16] LABS: POC Glucose,Bedside 149 (70-110)
[2022-10-24 09:52] LABS: Chloride 100 mmol/L (98-107); Potassium 5.5 mmoL/L (3.5-5.1); Sodium 136 mmol/L (136-145)
[2022-10-24 09:55] LABS: Alanine Aminotransferase 18 U/L (12-78); Albumin Level 3.6 g/dl (3.5-5.0); Albumin/Globulin Ratio 1.4 (1.1-1.8); Alkaline Phosphatase 66 U/L (38-126); Anion Gap 8.5 mEq/L (5-15); Aspartate Amino Transferase 21 U/L (17-59); Bilirubin,Total 0.5 mg/dl (0.2-1.3); Blood Urea Nitrogen 41 mg/dl (9-20); Carbon Dioxide 33 mmol/L (22.0-30.0); Creatinine Clearance Estimated 38 mL/min (50-200); Estimated Glomerular Filt Rate 33 ml/min (>60); GFR (African American) 40 ML/MIN (>60); Globulin 2.6 g/dL (1.3-3.2); Total Protein,Serum 6.2 g/dl (6.3-8.2)
[2022-10-24 09:56] LABS: Glucose 145 mg/dl (74-100)
[2022-10-24 09:57] LABS: Activated Partial Thrombo Time 25.5 seconds (22.8-30.6)
[2022-10-24 09:59] LABS: Basophils # 0.1 K/mm3 (0-0.2); Basophils % 0.6 % (0.1-2.0); Eosinophils # 0.1 K/mm3 (0.0-0.4); Hematocrit 46.4 % (42.0-52.0); Hemoglobin 13.7 g/dL (14.1-18.0); Lymphocytes # 1.6 K/mm3 (0.7-4.5); Lymphocytes % 17.1 % (10-50); Mean Corpuscular HGB Conc 29.6 g/dL (31.8-35.4); Mean Corpuscular Hemoglobin 30.1 pg (27.0-31.2); Mean Corpuscular Volume 101.6 fl (80-94); Mean Platelet Volume 7.3 fl (7.4-10.4); Monocytes # 0.5 K/mm3 (0.1-1.0); Monocytes % 5.9 % (1.7-9.3); Neutrophils # 6.8 K/mm3 (1.8-7.8); Neutrophils % 75.5 % (37.0-80.0); Platelet Count 361 K/mm3 (142-424); Red Blood Count 4.57 M/mm3 (4.60-6.20); Red Cell Distribution Width 17.4 % (11.5-17.5); White Blood Count 9.1 K/mm3 (4.8-10.8)
--- NOTE | 2022-10-24 11:40 | XR_ITS ---
PROCEDURE INFORMATION: Exam: XR Chest Exam date and time: 10/24/2022 11:58 AM Age: 57 years old Clinical indication: Shortness of breath; Additional info: SOB TECHNIQUE: Imaging protocol: Radiologic exam of the chest. Views: 2 views. COMPARISON: CR XR CHEST PORTABLE 10/22/2022 6:50 AM FINDINGS: Lungs: Unremarkable. No consolidation. Pleural spaces: Unremarkable. No pleural effusion. No pneumothorax. Heart/Mediastinum: Unremarkable. No cardiomegaly. Bones/joints: Unremarkable. IMPRESSION: No acute findings.
--- NOTE | 2022-10-24 11:42 | EXP.PN ---
Subjective *Date: 10/24/22 *Time: 11:42 Interval history: Patient reports feeling somewhat better today, swelling has improved somewhat, although he does continue to feel some penile and perineal discomfort, although less than the last few days. Exam Data for Last 24 hours Vital signs and Labs for Last 24 Hours: Temp Pulse Resp BP Pulse Ox 97.5 F L 70 20 132/87 93 L 10/24/22 08:00 10/24/22 08:00 10/24/22 08:00 10/24/22 08:00 10/24/22 08:00 Laboratory Results - last 24 hr 10/23/22 17:49: POC Glucose 212 H 10/23/22 21:27: POC Glucose 137 H 10/24/22 01:22: POC Glucose 136 H 10/24/22 02:45: APTT 25.6 10/24/22 05:09: POC Glucose 149 H 10/24/22 09:28: WBC 9.1, RBC 4.57 L, Hgb 13.7 L, Hct 46.4, MCV 101.6 H, MCH 30.1, MCHC 29.6 L, RDW 17.4, Plt Count 361, MPV 7.3 L, Neut % (Auto) 75.5, Lymph % (Auto) 17.1, [place] % (Auto) 5.9, Eos % (Auto) 1.0, Baso % (Auto) 0.6, Neut # (Auto) 6.8, Lymph # (Auto) 1.6, [place] # (Auto) 0.5, Eos # (Auto) 0.1, Baso # (Auto) 0.1 10/24/22 09:28: Sodium 136, Potassium 5.5 H, Chloride 100, Carbon Dioxide 33 H, Anion Gap 8.5, BUN 41 H, Creatinine 2.10 H, Estimated Creat Clear 38, Estimated GFR 33 L, Est GFR ( Amer) 40 L, Glucose 145 H, Calcium 9.0, Total Bilirubin 0.5, AST 21, ALT 18, Alkaline Phosphatase 66, Total Protein 6.2 L, Albumin 3.6, Globulin 2.6, Albumin/Globulin Ratio 1.4 10/24/22 09:28: APTT 25.5 I & O for Last 24 hours: Intake & Output 10/21/22 10/22/22 10/23/2210/24/22 23:59 23:59 23:59 23:59 Intake Total 400 / 400 960 / 960 Output Total 6100 / 6100 1000 / 1000 625 / 625 Balance -5700 / -5700 -40 / -40 -625 / -625 Weight 148.948 kg 145 kg 144.288 kg Microbiology Reports for the Last 24 Hours: Microbiology 10/22/22 04:59 Blood Blood Culture - Preliminary NO GROWTH AFTER 48 HOURS 10/22/22 04:59 Blood Blood Culture - Preliminary NO GROWTH AFTER 48 HOURS Constitutional Constitutional: no acute distress, morbidly obese, chronically ill appearing and cooperative *Routine HEENT Exam Head: Present normocephalic and atraumatic Eye: Present EOMI and PERRL ENT: Present mucous membranes moist *Routine Neck Exam Neck: Present supple and full ROM *Routine Respiratory Exam Respiratory: Present decreased breath sounds, rhonchi (Occasional coarse rhonchi appreciated), distant breath sounds, normal respiratory effort and able to speak in complete sentences; Absent accessory muscle use, respiratory distress, wheezes or crackles *Routine Cardiovascular Exam Cardiovascular: Present RRR, Normal S1 and Normal S2 *Routine Abdominal Exam Abdominal: Present soft, normoactive bowel sounds and obese; Absent tenderness, distended, rebound or guarding *Routine Rectal Exam Comments: Deferred *Routine Exam Patient deferred: scrotal exam (Edema noted) Penile: Present swelling (Retracted into scrotal swelling) Testicular: bilateral: swelling Scrotal: Present swelling, tenderness and erythema *Routine Extremities Exam Extremities: Present edema (2-3+ pitting edema to mid shins bilaterally ), full ROM, pulses intact and normal capillary refill *Routine Skin Exam Skin: Present intact and dry *Routine Neurological Exam Neurological: Present alert, CN II-XII intact, moving all extremities and normal tone; Absent altered mental status Routine Psychiatric Exam Psychiatric: Present normal affect (Somewhat grumpy), normal thought process and cooperative; Absent auditory hallucinations or visual hallucinations Assessment and Plan *Assessment and plan (1) CHF (congestive heart failure): Status: Acute Category: Medical Code(s): I50.9 - Heart failure, unspecified (2) CHINTAN (acute kidney injury): Status: Acute Category: Medical Code(s): N17.9 - Acute kidney failure, unspecified (3) COPD (chronic obstructive pulmonary disease): Status: Acute Category: Medical Code(s): J44.9 - C
[2022-10-24 14:24] LABS: POC Glucose,Bedside 283 (70-110)
[2022-10-24 19:56] LABS: Magnesium 1.4 mg/dl (1.6-2.3)
--- NOTE | 2022-10-24 20:00 | PC.NURSE ---
1999 pt complained that valium does not help him and requesting ativan and states they gave it to him prior night, Paco BARKER called regarding pt complaints, note new orders entered for lorazepam x1 dose. iv to left arm discontinued for pt complaints of pain at site when flushing, catheter intact. new iv started to right wrist x1 stick, #20g, pt tolerated well.
[2022-10-24 20:05] LABS: POC Glucose,Bedside 235 (70-110)
--- NOTE | 2022-10-24 21:50 | PC.NURSE ---
2149 kj BARKER called regarding pt complaints that ativan 1mg ivp did not help, noted pt stated he smokes marajuana and has a history of xanax use. orders entered per provider to give 1mg ativan x1 dose.
[2022-10-25] VITALS (8 sets, daily range): BP systolic 135–144; BP diastolic 69–88; PULSE 70–83; RESP 17–22; TEMP 36.6–37.2; O2SAT 91–94; BMI 47.0
[2022-10-25 01:31] LABS: POC Glucose,Bedside 172 (70-110)
[2022-10-25 05:19] LABS: Basophils # 0.1 K/mm3 (0-0.2); Basophils % 0.4 % (0.1-2.0); Eosinophils # 0.1 K/mm3 (0.0-0.4); Hematocrit 43.6 % (42.0-52.0); Hemoglobin 13.3 g/dL (14.1-18.0); Lymphocytes % 19.3 % (10-50); Mean Corpuscular HGB Conc 30.6 g/dL (31.8-35.4); Mean Corpuscular Hemoglobin 30.5 pg (27.0-31.2); Mean Corpuscular Volume 99.7 fl (80-94); Mean Platelet Volume 7.7 fl (7.4-10.4); Monocytes # 0.8 K/mm3 (0.1-1.0); Monocytes % 7.5 % (1.7-9.3); Neutrophils # 7.4 K/mm3 (1.8-7.8); Neutrophils % 71.7 % (37.0-80.0); Platelet Count 357 K/mm3 (142-424); Red Blood Count 4.38 M/mm3 (4.60-6.20); Red Cell Distribution Width 17.4 % (11.5-17.5); White Blood Count 10.2 K/mm3 (4.8-10.8)
[2022-10-25 05:27] LABS: Alanine Aminotransferase 21 U/L (12-78); Albumin Level 3.7 g/dl (3.5-5.0); Albumin/Globulin Ratio 1.4 (1.1-1.8); Alkaline Phosphatase 65 U/L (38-126); Anion Gap 9.4 mEq/L (5-15); Aspartate Amino Transferase 35 U/L (17-59); Bilirubin,Total 0.5 mg/dl (0.2-1.3); Blood Urea Nitrogen 46 mg/dl (9-20); Calcium 9.1 mg/dl (8.4-10.2); Carbon Dioxide 33 mmol/L (22.0-30.0); Chloride 96 mmol/L (98-107); Creatinine Clearance Estimated 42 mL/min (50-200); Estimated Glomerular Filt Rate 37 ml/min (>60); GFR (African American) 45 ML/MIN (>60); Globulin 2.7 g/dL (1.3-3.2); Glucose 164 mg/dl (74-100); Magnesium 1.4 mg/dl (1.6-2.3); Potassium 4.4 mmoL/L (3.5-5.1); Sodium 134 mmol/L (136-145); Total Protein,Serum 6.4 g/dl (6.3-8.2)
[2022-10-25 05:35] LABS: NT Pro Brain Natriuretic Pep. 9360 pg/mL (0-125)
--- NOTE | 2022-10-25 05:47 | PC.NURSE ---
pt was restless most of the night, up and down standing on side of bed at times, stated it felt better to let his scrotum hang, scrotum still edematous, penis with edema noted, urojet administered x1 for comfort, noted pink tinged urine at times, iv was restarted this shift, pt is alert and oriented x4, pt required 2 doses of ativan and vistaril for anxiety and felt like he could not still still, v/s remain stable. telemetry reveals nsr with occasional to frequent pvcs
[2022-10-25 07:18] LABS: POC Glucose,Bedside 150 (70-110)
[2022-10-25 12:32] LABS: POC Glucose,Bedside 195 (70-110)
--- NOTE | 2022-10-25 13:22 | EXP.PN ---
Subjective *Date: 10/25/22 *Time: 13:22 Interval history: No acute events overnight. Patient reports he feels about the same today compared to yesterday, may be a little bit better. He feels his swelling has slightly improved. Exam Data for Last 24 hours Vital signs and Labs for Last 24 Hours: Temp Pulse Resp BP Pulse Ox 98.4 F 78 18 135/78 91 L 10/25/22 11:32 10/25/22 11:32 10/25/22 11:32 10/25/22 11:32 10/25/22 11:32 Laboratory Results - last 24 hr 10/24/22 14:16: POC Glucose 283 H 10/24/22 19:30: Magnesium 1.4 L D 10/24/22 19:58: POC Glucose 235 H 10/25/22 01:10: POC Glucose 172 H 10/25/22 04:55: Sodium 134 L, Potassium 4.4, Chloride 96 L, Carbon Dioxide 33 H, Anion Gap 9.4, BUN 46 H, Creatinine 1.90 H, Estimated Creat Clear 42, Estimated GFR 37 L, Est GFR ( Amer) 45 L, Glucose 164 H, Calcium 9.1, Magnesium 1.4 L, Total Bilirubin 0.5, AST 35 D, ALT 21, Alkaline Phosphatase 65, NT-Pro-B Natriuret Pep 9360 H, Total Protein 6.4, Albumin 3.7, Globulin 2.7, Albumin/Globulin Ratio 1.4 10/25/22 04:55: WBC 10.2, RBC 4.38 L, Hgb 13.3 L, Hct 43.6, MCV 99.7 H, MCH 30.5, MCHC 30.6 L, RDW 17.4, Plt Count 357, MPV 7.7, Neut % (Auto) 71.7, Lymph % (Auto) 19.3, Leslie % (Auto) 7.5, Eos % (Auto) 1.0, Baso % (Auto) 0.4, Neut # (Auto) 7.4, Lymph # (Auto) 2.0, Leslie # (Auto) 0.8, Eos # (Auto) 0.1, Baso # (Auto) 0.1 10/25/22 06:59: POC Glucose 150 H 10/25/22 12:11: POC Glucose 195 H I & O for Last 24 hours: Intake & Output 10/22/22 10/23/22 10/24/22 10/25/22 23:59 23:59 23:59 23:59 Intake Total 400 / 400 960 / 960 840 / 840 480 / 480 Output Total 6100 / 6100 1000 / 1000 2225 / 3025 2850 / 2850 Balance -5700 / -5700 -40 / -40 -1385 / -2185 -2370 / -2370 Weight 148.948 kg 145 kg 144.288 kg 143.874 kg Constitutional Constitutional: no acute distress, morbidly obese, chronically ill appearing and cooperative *Routine HEENT Exam Head: Present normocephalic and atraumatic Eye: Present EOMI and PERRL ENT: Present mucous membranes dry and oropharynx clear *Routine Neck Exam Neck: Present supple and full ROM *Routine Respiratory Exam Respiratory: Present decreased breath sounds, rhonchi (Occasional coarse rhonchi appreciated), distant breath sounds, normal respiratory effort and able to speak in complete sentences; Absent accessory muscle use, respiratory distress, wheezes or crackles *Routine Cardiovascular Exam Cardiovascular: Present RRR, Normal S1 and Normal S2 *Routine Abdominal Exam Abdominal: Present soft, normoactive bowel sounds and obese; Absent tenderness, distended, rebound or guarding *Routine Rectal Exam Comments: Deferred *Routine Exam Patient deferred: scrotal exam (Edema noted) Penile: Present swelling (Retracted into scrotal swelling) Testicular: bilateral: swelling Scrotal: Present swelling and erythema; Absent tenderness *Routine Extremities Exam Extremities: Present edema (2+ pitting edema to mid shins bilaterally ), full ROM, pulses intact and normal capillary refill *Routine Skin Exam Skin: Present intact and dry *Routine Neurological Exam Neurological: Present alert, oriented X3, CN II-XII intact, moving all extremities and normal tone; Absent altered mental status Routine Psychiatric Exam Psychiatric: Present normal affect, normal thought process, cooperative, depressed and anxious; Absent auditory hallucinations or visual hallucinations Assessment and Plan *Assessment and plan (1) CHF (congestive heart failure): Status: Acute Category: Medical Code(s): I50.9 - Heart failure, unspecified (2) CHINTAN (acute kidney injury): Status: Acute Category: Medical Code(s): N17.9 - Acute kidney failure, unspecified (3) COPD (chronic obstructive pulmonary disease): Status: Acute Category: Medical Code(s): J44.9 - Chronic obstructive pulmonary disease, unspecified (4) Type 2 diabetes mellitus: Status: Chronic Qualifiers: Diabetes m
--- NOTE | 2022-10-25 16:30 | PC.NURSE ---
Pt VSS, B/L clear to auscultation; 2800+ output today. Family came to visit and patient seemed pleased.
[2022-10-25 17:16] LABS: POC Glucose,Bedside 282 (70-110)
[2022-10-25 22:43] LABS: POC Glucose,Bedside 233 (70-110)
--- NOTE | 2022-10-25 23:34 | INFXCTL.NOTE ---
2119- Pt complains of anxiety, requesting Ativan via IV route at this time. Pt was made aware of Ativan being discontinued. Pt was medicated per dec, Diazepam 5 mg PO and Vistaril 50 mg PO @2125. 2329- Pt states he needs me to do him a favor and call whoever the doctor is for ativan Pt laying in bed watching tv at this time. He states im going to start pacing the room like I was last night Pt reports anxiety level 2338- Spoke with hospitalist, new orders received and will be carried out at this time.
--- NOTE | 2022-10-25 23:57 | PC.NURSE ---
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 pt states someone took it off of him and placed in a plastic bag. Tele not found in room. New tele placed on pt per orders.
[2022-10-26] VITALS: BP 135/80; PULSE 79; PULSE 80; RESP 18; TEMP 37.2; O2SAT 92
[2022-10-26 00:29] LABS: POC Glucose,Bedside 211 (70-110)
[2022-10-26 04:00] VITALS: BP 124/78; PULSE 77; PULSE 80; RESP 18; TEMP 36.6; O2SAT 94; BMI 45.1
--- NOTE | 2022-10-26 04:36 | PC.NURSE ---
Pt has had multiple complaints this shift. Pt was medicated PRN per mar for penile pain. Pt was also medicated PRN per MAR for anxiety. Pt has had 4150 ml UO per panda catheter this shift. +3 edema noted to BLE and scrotum/penis. Remains on RA and tolerating well with O2 sats 91-93%. NSR on tele, HR 70-80
[2022-10-26 06:50] LABS: Chloride 94 mmol/L (98-107); Sodium 136 mmol/L (136-145)
[2022-10-26 06:52] LABS: Basophils # 0.1 K/mm3 (0-0.2); Basophils % 0.6 % (0.1-2.0); Eosinophils # 0.1 K/mm3 (0.0-0.4); Eosinophils % 1.4 % (0.1-12.0); Hematocrit 43.9 % (42.0-52.0); Hemoglobin 13.8 g/dL (14.1-18.0); Lymphocytes # 1.7 K/mm3 (0.7-4.5); Lymphocytes % 21.5 % (10-50); Mean Corpuscular HGB Conc 31.5 g/dL (31.8-35.4); Mean Corpuscular Hemoglobin 30.5 pg (27.0-31.2); Mean Corpuscular Volume 96.9 fl (80-94); Mean Platelet Volume 7.2 fl (7.4-10.4); Monocytes # 0.6 K/mm3 (0.1-1.0); Monocytes % 7.5 % (1.7-9.3); Neutrophils # 5.6 K/mm3 (1.8-7.8); Neutrophils % 69.1 % (37.0-80.0); Platelet Count 303 K/mm3 (142-424); Red Blood Count 4.53 M/mm3 (4.60-6.20); Red Cell Distribution Width 17.3 % (11.5-17.5); White Blood Count 8.1 K/mm3 (4.8-10.8)
[2022-10-26 06:53] LABS: Alanine Aminotransferase 21 U/L (12-78); Albumin Level 3.5 g/dl (3.5-5.0); Albumin/Globulin Ratio 1.5 (1.1-1.8); Alkaline Phosphatase 59 U/L (38-126); Aspartate Amino Transferase 26 U/L (17-59); Bilirubin,Total 0.4 mg/dl (0.2-1.3); Blood Urea Nitrogen 38 mg/dl (9-20); Calcium 9.2 mg/dl (8.4-10.2); Carbon Dioxide 36 mmol/L (22.0-30.0); Creatinine Clearance Estimated 50 mL/min (50-200); Estimated Glomerular Filt Rate 45 ml/min (>60); GFR (African American) 54 ML/MIN (>60); Globulin 2.3 g/dL (1.3-3.2); Glucose 148 mg/dl (74-100); Total Protein,Serum 5.8 g/dl (6.3-8.2)
[2022-10-26 07:05] LABS: POC Glucose,Bedside 150 (70-110)
[2022-10-26 08:00] VITALS: BP 141/78; PULSE 82; RESP 22; TEMP 37; O2SAT 93
[2022-10-26 08:30] VITALS: PULSE 78
[2022-10-26 12:00] VITALS: BP 145/91; PULSE 78; RESP 18; TEMP 36.8; O2SAT 90
--- NOTE | 2022-10-26 13:56 | EXP.DC.SUM ---
General Admission date:: 10/22/22 Discharge date: 10/26/22 HPI HPI HPI: This is a 57 year-old male with past medical history of HFrEF, Atrial fibrillation, COPD, T2dm who presents to the emergency department this morning for complaints of scrotal edema. He reports scrotal edema that started approximately 3 days ago and has worsened causing him to continue urination. He also endorses all of her edema with associated dyspnea on exertion. He reports a 40 pound weight gain in approximately 3 weeks. Reports that he has been placed on Lasix every other day with the addition of spironolactone his regimen for his heart failure. He denies fever but does endorse mild cough and shortness of breath Urgent department work-up significant for volume overload as clinical presentation. He does have a BNP of 10,000. CHINTAN with a creatinine of 2.7 with baseline of 1.6. CT of the abdomen pelvis likely hydrocele but no other On my exam patient is hypoxic to the low 80s on room air while resting. He does have increased oxygen saturation when he is awake and speaking. +3 pitting edema noted to bilateral lower extremities gross scrotal swelling noted. Due to the above mentioned complaints he will be admitted to the hospitalist service for further evaluation and mangement. Hospital Course Hospital Course Hospital Course: Patient is a 57-year-old male with past medical history of systolic heart failure, chronic kidney disease, COPD, coronary artery disease, hypertension, and type 2 diabetes who is admitted for CHF exacerbation with very swollen scrotum and epididymitis. //Acute on chronic congestive heart failure. EF on echocardiogram last month 40 to 45%. Pt treated with IV Lasix and according to I/O patient had a total diuresis of -16 L during 5-day admission and a weight loss of 11 kg. For most of patient's admission he had a Leo catheter in as his scrotal swelling was severe enough to cause a retracted penis and there was concern for urinary obstruction due to the degree of scrotal swelling. Leo was removed on day of discharge and while penis remains retracted he is able to void without difficulty. Scrotum is still swollen, but obviously less so in setting of 16 L diuresis and 11 kg weight loss. Patient's home dose of Lasix will be doubled from 40 mg p.o. daily to twice daily and spironolactone 25 mg PO is increased from every other day to qd. An ultrasound in the ER of patient scrotum revealed epididymitis, patient was treated with IV Levaquin and he will continue this on discharge for at least 9 days or until he can follow-up with urology. //CHINTAN. Patient's baseline creatinine appears to be about 1.6. Creatinine was significantly elevated at 2.7 on admission. Creatinine trend during admission was 2.7 -> 2.0 -> 2.1 -> 1.9 -> 1.6 in setting of diuresis. //COPD - Continue duonebs q4 PRN. Pt was given prednisone 20 mg PO qd during admission but this will be stopped on discharge. Pt occasionally had 2L of O2 by NC, with by patient request or from desatting during sleep which was almost certainly from CHRIS. During the day pt satting > 90% on RA. //CAD - Continue home atorvastatin, aspirin, Plavix //Hypertension - Amlodipine decreased from 10 to 5 mg PO qd in setting of BLE edema. HR is normal so BB is avoided, GALE/ARB avoided during CHINTAN. He is already on lasix so thiazide avoided. Consider imdur or hydralazine if additional BP meds needed. //DM 2 - A1c was 7.4 on 03/11/22. Glucose was mostly < 200 with just SSI. Metformin was DC'd secondary to chronic kidney disease. We will start a low-dose of glipizide and patient will need to follow-up with PCP regarding type 2 diabetes. //Anxiety -patient had considerable anxiety during his admission. We will start Zoloft on discharge and he will follow-up with PCP regarding anxiety. -Patient is advised he will need prompt follow-up with urology. Unfortunately today being the day after [facility] most outpatient medical offices are close
--- NOTE | 2022-10-26 15:11 | HMH.PHAINT1 ---
Pharmacy Intervention Comments: DISCHARGE MEDICATION COUNSELING PROVIDED. DISCUSSED THE FOLLOWING CHANGES: -STOP THE FOLLOWING: AMLODIPINE 10 MG AND METFORMIN -CHANGED MEDICATIONS: FUROSEMIDE FROM ONCE TO TWICE DAILY, SPIRONOLACTONE FROM MWF TO DAILY. -START THE FOLLOWING: -AMLODIPINE 5 MG TAB (PATIENT HAS BEEN ON AMLODIPINE 10 MG, FAMILIAR WITH THIS MEDICATION) -GLIPIZIDE (FOR DIABETES, TWICE DAILY, 30 MIN BEFORE MEAL, WATCH FOR SIGNS/SYMPTOMS OF LOW BLOOD SUGAR) -LEVOFLOXACIN (ANTIBIOTIC, DAILY, TAKE WITH FOOD, MAY CAUSE N/V/D) -MAGNESIUM (SUPPLEMENT, TWICE DAILY, MAY CAUSE UPSET STOMACH/DIARRHEA) -SERTRALINE (FOR MOOD, DAILY, MAY CAUSE GI UPSET, SEDATION, HEADACHE) PATIENT EXPRESSED CONCERN WITH TAKING SERTRALINE AND MAGNESIUM OXIDE. PATIENT WAS CONCERNED ABOUT THE SERTRALINE BECAUSE IT WAS A HEAD MEDICATION AND SAID THE MAGNESIUM OXIDE DIDNT WORK AND UPSET HIS STOMACH. I ADVISED HIM TO FOLLOW UP WITH HIS PRIMARY CARE DOCTOR WITH ANY CONCERNS. PATIENT ALSO ASKED IF HE SHOULD CONTINUE TO RECEIVE MAGNESIUM INFUSIONS, I ADVISED HIM TO DISCUSS THAT WITH HIS INFUSION DOCTOR. PATIENT VERBALIZED NO ADDITIONAL QUESTIONS AT THIS TIME.
--- NOTE | 2022-10-26 15:45 | PC.NURSE ---
PT IS BEING DISCHARGED HOME. PT HAS BEEN VOIDING W/O DIFFICULTY SINCE THE NUÑEZ WAS REMOVED. PT WAS ABLE TO VOID 750 TOTAL IN THE URINAL AND HAS HAD SEVERAL UNMEASURED VOIDS DUE TO URINATING IN THE TOILET AND A COUPLE OF ACCIDENTS ON THE FLOOR. PT STATED HE FELT GOOD ENOUGH TO GO HOME LONG HE WAS ABLE TO URINATE WELL HE IS NOW AND IS HOPEFUL HIS SCROTAL SWELLING WILL CONTINUE TO DECREASE. PT WILL FOLLOW UP WITH 10/29. PT WAS INSTRUCTED TO CALL FOR FOLLOW UP IN THE MORNING WITH AND DUE TO OFFICES BEING CLOSED TODAY.
--- NOTE | 2022-10-27 14:42 | CARE MANAGER ---
Contacted patient related to hospital discharge. He did rock picker his medications and is aware of his follow up appointments. VANI Tucker
[2022-10-27 23:37] LABS: Neisseria gonorrhoeae, NAA Negative (Negative)
== END 2022-10-26 15:50 | disposition home or self-care (01) ==
LOC: ER 04:58 → 2ND 07:40
PROVIDERS: Nurse Practitioner Acute Care; Nurse Practitioner Family; Admitting Provider Emergency Medicine; Emergency Provider Emergency Medicine; PCP Emergency Medicine; Visit Provider Emergency Medicine
DX: I50.9 Heart failure, unspecified (principal); N17.9 Acute kidney failure, unspecified; I25.118 Atherosclerotic heart disease of native coronary artery with other forms of angina pectoris; F17.210 Nicotine dependence, cigarettes, uncomplicated; E11.9 Type 2 diabetes mellitus without complications; J44.9 Chronic obstructive pulmonary disease, unspecified; N45.1 Epididymitis; Z79.899 Other long term (current) drug therapy; Z79.84 Long term (current) use of oral hypoglycemic drugs; I48.91 Unspecified atrial fibrillation; I11.0 Hypertensive heart disease with heart failure; I42.9 Cardiomyopathy, unspecified; Z79.01 Long term (current) use of anticoagulants; E66.01 Morbid (severe) obesity due to excess calories; Z68.42 Body mass index [BMI] 45.0-49.9, adult; Z86.718 Personal history of other venous thrombosis and embolism; Z20.822 Contact with and (suspected) exposure to COVID-19
CPT/HCPCS: 36415; 51702; 71045; 71046; 74176; 76870; 80053; 80061; 81001; 82150; 82962; 83605; 83690; 83735; 83880; 84145; 85025; 85651; 85730; 86140; 87040; 87491; 87591; 93005; 99285; C9803; G0378; J1956; J3475; U0003; U0005

== ENCOUNTER → 2022-11-02 10:50 | Outpatient (CLI) | payer OTHER, SELFPAY ==
[2022-11-02 12:23] LABS: Anion Gap 13.7 mEq/L (5-15); Blood Urea Nitrogen 37 mg/dl (9-20); Calcium 8.7 mg/dl (8.4-10.2); Carbon Dioxide 30 mmol/L (22.0-30.0); Chloride 91 mmol/L (98-107); Estimated Glomerular Filt Rate 31 ml/min (>60); GFR (African American) 38 ML/MIN (>60); Glucose 133 mg/dl (74-100); Potassium 4.7 mmoL/L (3.5-5.1); Sodium 130 mmol/L (136-145)
== END ==
PROVIDERS: PCP Emergency Medicine; Visit Provider Nurse Practitioner
DX: N18.9 Chronic kidney disease, unspecified (principal)
CPT/HCPCS: 36415; 80048

== ENCOUNTER 2022-11-09 12:07 | Outpatient (CLI) | payer OTHER, SELFPAY ==
[2022-11-09 12:16] VITALS: BMI 41.8
[2022-11-09 13:33] LABS: Chloride 92 mmol/L (98-107); Potassium 4.2 mmoL/L (3.5-5.1); Sodium 134 mmol/L (136-145)
[2022-11-09 13:35] VITALS: BP 105/66; PULSE 105; RESP 18; TEMP 36.3; O2SAT 97
[2022-11-09 13:36] LABS: Anion Gap 10.2 mEq/L (5-15); Blood Urea Nitrogen 35 mg/dl (9-20); Calcium 8.1 mg/dl (8.4-10.2); Carbon Dioxide 36 mmol/L (22.0-30.0); Creatinine Clearance Estimated 49 mL/min (50-200); Estimated Glomerular Filt Rate 42 ml/min (>60); GFR (African American) 51 ML/MIN (>60); Glucose 145 mg/dl (74-100); Magnesium 1.4 mg/dl (1.6-2.3)
[2022-11-09 14:35] VITALS: BP 130/69; PULSE 97; RESP 18; O2SAT 97
== END 2022-11-09 14:40 | disposition home or self-care (01) ==
LOC: INF 12:07
PROVIDERS: PCP Emergency Medicine; Visit Provider Physician Assistant
DX: E83.42 Hypomagnesemia (principal)
CPT/HCPCS: 80048; 83735; 96365; J3475

== ENCOUNTER 2022-11-16 12:11 | Outpatient (CLI) | payer OTHER, SELFPAY ==
[2022-11-16 12:20] VITALS: BMI 41.8
[2022-11-16 12:53] LABS: Chloride 92 mmol/L (98-107); Potassium 4.2 mmoL/L (3.5-5.1); Sodium 135 mmol/L (136-145)
[2022-11-16 12:56] LABS: Anion Gap 11.2 mEq/L (5-15); Blood Urea Nitrogen 29 mg/dl (9-20); Carbon Dioxide 36 mmol/L (22.0-30.0); Creatinine Clearance Estimated 41 mL/min (50-200); Estimated Glomerular Filt Rate 35 ml/min (>60); GFR (African American) 42 ML/MIN (>60)
[2022-11-16 12:57] LABS: Calcium 8.7 mg/dl (8.4-10.2); Glucose 151 mg/dl (74-100); Magnesium 1.4 mg/dl (1.6-2.3)
[2022-11-16 13:27] VITALS: BP 137/76; PULSE 62; RESP 16; TEMP 36.4; O2SAT 96
[2022-11-16 14:00] VITALS: BP 107/63; PULSE 72; RESP 18; TEMP 36.4; O2SAT 97
[2022-11-16 14:40] VITALS: BP 128/74; PULSE 72; RESP 16; TEMP 36.4; O2SAT 97
== END 2022-11-16 14:40 | disposition home or self-care (01) ==
LOC: INF 12:12
PROVIDERS: Nurse Practitioner; PCP Family Medicine; Visit Provider Physician Assistant
DX: E83.42 Hypomagnesemia (principal)
CPT/HCPCS: 80048; 83735; 96365; J3475

== ENCOUNTER 2022-11-23 12:28 | Outpatient (CLI) | payer OTHER, SELFPAY ==
[2022-11-23 13:09] LABS: MANUAL DIFFERENTIAL MANUAL DIFFERENTIAL (MANUAL DIFF)
[2022-11-23 13:09] LABS: Microscopic, Urine URINE MICROSCOPIC (MICROSCOPIC)
[2022-11-23 13:14] VITALS: BP 106/64; PULSE 72; RESP 18; TEMP 36.4; O2SAT 98
[2022-11-23 13:14] LABS: Chloride 95 mmol/L (98-107); Sodium 137 mmol/L (136-145)
[2022-11-23 13:15] LABS: Potassium 4.8 mmoL/L (3.5-5.1)
[2022-11-23 13:17] LABS: Alanine Aminotransferase 15 U/L (12-78); Albumin Level 3.9 g/dl (3.5-5.0); Albumin/Globulin Ratio 1.1 (1.1-1.8); Alkaline Phosphatase 68 U/L (38-126); Anion Gap 9.8 mEq/L (5-15); Aspartate Amino Transferase 26 U/L (17-59); Basophils # 0.1 K/mm3 (0-0.2); Bilirubin,Total 0.7 mg/dl (0.2-1.3); Blood Urea Nitrogen 31 mg/dl (9-20); Calcium 8.8 mg/dl (8.4-10.2); Carbon Dioxide 37 mmol/L (22.0-30.0); Cholesterol 212 mg/dl (140-200); Eosinophils # 0.2 K/mm3 (0.0-0.4); Estimated Glomerular Filt Rate 35 ml/min (>60); GFR (African American) 42 ML/MIN (>60); Globulin 3.4 g/dL (1.3-3.2); Glucose 137 mg/dl (74-100); Hematocrit 49.2 % (42.0-52.0); Hemoglobin 15.6 g/dL (14.1-18.0); Lymphocytes # 1.6 K/mm3 (0.7-4.5); Lymphocytes % 21.1 % (10-50); Mean Corpuscular HGB Conc 31.7 g/dL (31.8-35.4); Mean Corpuscular Hemoglobin 29.4 pg (27.0-31.2); Mean Corpuscular Volume 92.9 fl (80-94); Mean Platelet Volume 7.6 fl (7.4-10.4); Monocytes # 0.5 K/mm3 (0.1-1.0); Monocytes % 6.6 % (1.7-9.3); Neutrophils # 5.3 K/mm3 (1.8-7.8); Neutrophils % 69.3 % (37.0-80.0); Platelet Count 348 K/mm3 (142-424); Red Cell Distribution Width 17.3 % (11.5-17.5); Total Protein,Serum 7.3 g/dl (6.3-8.2); Triglycerides 134 mg/dl (30-150); VLDL Cholesterol 27 mg/dL (0-40); White Blood Count 7.7 K/mm3 (4.8-10.8)
[2022-11-23 13:18] LABS: Chol/HDL Ratio 5.4 (1-3.5); HDL Cholesterol 39 mg/dl (40-60); Magnesium 1.6 mg/dl (1.6-2.3)
[2022-11-23 13:21] LABS: Appearance,Urine CLEAR (Clear); Bilirubin,Urine Negative (Negative); Blood, Urine Negative (Negative); Color,Urine YELLOW (Yellow); Glucose,Urine (UA) Negative (Negative); Ketones,Urine Negative (Negative); Leukocyte Esterase,Urine Negative (Negative); Nitrate,Urine Negative (Negative); Protein,Urine Negative (Negative); Urobilinogen,Urine 0.2 EU/dl (0.2)
[2022-11-23 13:24] LABS: C-Reactive Protein 30.1 mg/L (0-4)
[2022-11-23 13:28] LABS: Direct LDL Cholesterol 116.54 mg/dL (100-129)
[2022-11-23 13:29] LABS: Creatinine,Urine Random 14 mg/dL (Not Estab.)
[2022-11-23 13:31] LABS: Bacteria,Urine Trace /lpf; WBC,Urine Occasional #/hpf (0-3)
[2022-11-23 13:32] LABS: Microalbumin/Creatinine Ratio 81.4
[2022-11-23 13:34] LABS: Hemoglobin A1C 8.3 % (4.0-6.0)
[2022-11-23 13:44] VITALS: BP 112/73; PULSE 68; RESP 18; O2SAT 98
[2022-11-23 13:48] LABS: Uric Acid 13.4 mg/dl (3.5-8.5)
[2022-11-23 13:49] LABS: Thyroid Stimulating Hormone 1.54 uIU/mL (0.465-4.68)
[2022-11-23 14:19] LABS: Prostate Specific Ag Screen 0.3 ng/ml (0.0-4.0)
[2022-11-23 14:40] VITALS: BP 105/70; PULSE 62; RESP 18; O2SAT 98
[2022-11-23 15:34] LABS: Eosinophils % 2 % (0-3); Lymphocytes % 28 % (10-50); Monocytes % 9 % (2-9); Neutrophils % 61 % (42-76); Total Cells Counted 100
[2022-11-23 15:35] LABS: Platelet Estimate Normal; Tear Drop Cells 1+
[2022-11-23 15:53] LABS: Erythrocyte Sedimentation Rate 11 mm/hr (0-20)
[2022-11-24 16:39] LABS: Anti-Centromere B Antibodies <0.2 AI (0.0-0.9); Anti-DNA (DS) Ab Qn 1 IU/mL (0-9); Anti-Jo-1 <0.2 AI (0.0-0.9); Anti-Smith Antibody <0.2 AI (0.0-0.9); Antichromatin Antibodies <0.2 AI (0.0-0.9); Antiscleroderma-70 Antibodies <0.2 AI (0.0-0.9); RA Latex Turbid. 13.7 IU/mL (<14.0); RNP Antibodies 0.4 AI (0.0-0.9); Sjogren's Anti-SS-A <0.2 AI (0.0-0.9); Sjogren's Anti-SS-B <0.2 AI (0.0-0.9)
[2022-11-25 10:15] LABS: Antinuclear Antibodies, IFA Negative (.)
== END 2022-11-23 14:45 | disposition home or self-care (01) ==
LOC: INF 12:28
PROVIDERS: PCP Family Medicine; Visit Provider Physician Assistant
DX: E83.42 Hypomagnesemia (principal); E11.9 Type 2 diabetes mellitus without complications; E78.5 Hyperlipidemia, unspecified; I10 Essential (primary) hypertension; I25.10 Atherosclerotic heart disease of native coronary artery without angina pectoris; I50.9 Heart failure, unspecified; J44.9 Chronic obstructive pulmonary disease, unspecified; M10.9 Gout, unspecified; N18.9 Chronic kidney disease, unspecified; Z79.84 Long term (current) use of oral hypoglycemic drugs; Z12.5 Encounter for screening for malignant neoplasm of prostate
CPT/HCPCS: 80053; 80061; 81001; 82043; 82570; 83036; 83735; 84443; 84550; 85007; 85014; 85018; 85048; 85049; 85651; 86038; 86140; 86225; 86235; 86431; 96365; G0103; J3475

== ENCOUNTER 2022-12-15 12:07 | Outpatient (CLI) | payer OTHER, SELFPAY ==
[2022-12-15 12:15] VITALS: BMI 40.3
[2022-12-15 12:32] VITALS: BP 93/56; PULSE 71; RESP 18; TEMP 36.4; O2SAT 98
[2022-12-15 12:46] LABS: Chloride 98 mmol/L (98-107)
[2022-12-15 12:47] LABS: Sodium 135 mmol/L (136-145)
[2022-12-15 12:49] LABS: Blood Urea Nitrogen 61 mg/dl (9-20); Creatinine Clearance Estimated 44 mL/min (50-200); Estimated Glomerular Filt Rate 19 ml/min (>60); GFR (African American) 24 ML/MIN (>60)
[2022-12-15 12:50] LABS: Calcium 9.4 mg/dl (8.4-10.2); Carbon Dioxide 32 mmol/L (22.0-30.0); Glucose 162 mg/dl (74-100); Magnesium 1.4 mg/dl (1.6-2.3)
[2022-12-15 13:02] VITALS: BP 101/52; PULSE 74; RESP 18; O2SAT 98
[2022-12-15 13:40] VITALS: BP 110/60; PULSE 80; RESP 18; O2SAT 97
[2022-12-15 14:40] VITALS: BP 108/54; PULSE 75; RESP 18; O2SAT 97
== END 2022-12-15 14:59 | disposition home or self-care (01) ==
LOC: INF 12:08
PROVIDERS: PCP Family Medicine; Visit Provider Nurse Practitioner
DX: E83.42 Hypomagnesemia (principal); E86.0 Dehydration
CPT/HCPCS: 80048; 83735; 96360; 96367; J3475

== ENCOUNTER → 2022-12-16 11:19 | Outpatient (CLI) | payer OTHER, SELFPAY ==
[2022-12-16 11:56] LABS: Chloride 100 mmol/L (98-107); Potassium 5.2 mmoL/L (3.5-5.1); Sodium 135 mmol/L (136-145)
[2022-12-16 11:59] LABS: Anion Gap 12.2 mEq/L (5-15); Blood Urea Nitrogen 54 mg/dl (9-20); Carbon Dioxide 28 mmol/L (22.0-30.0); Estimated Glomerular Filt Rate 23 ml/min (>60); GFR (African American) 27 ML/MIN (>60)
[2022-12-16 12:00] LABS: Calcium 9.3 mg/dl (8.4-10.2); Glucose 157 mg/dl (74-100)
== END ==
PROVIDERS: PCP Family Medicine; Visit Provider Physician Assistant
DX: N18.32 Chronic kidney disease, stage 3b (principal)
CPT/HCPCS: 36415; 80048

== ENCOUNTER 2022-12-21 11:43 | Outpatient (CLI) | payer OTHER, SELFPAY ==
[2022-12-21 11:50] VITALS: BMI 39.4
[2022-12-21 12:06] VITALS: BP 132/82; PULSE 75; RESP 18; O2SAT 97
[2022-12-21 12:13] LABS: Chloride 103 mmol/L (98-107); Potassium 4.8 mmoL/L (3.5-5.1); Sodium 137 mmol/L (136-145)
[2022-12-21 12:16] LABS: Anion Gap 11.8 mEq/L (5-15); Blood Urea Nitrogen 26 mg/dl (9-20); Calcium 9.7 mg/dl (8.4-10.2); Carbon Dioxide 27 mmol/L (22.0-30.0); Creatinine Clearance Estimated 78 mL/min (50-200); Estimated Glomerular Filt Rate 39 ml/min (>60); GFR (African American) 47 ML/MIN (>60); Glucose 148 mg/dl (74-100); Magnesium 1.6 mg/dl (1.6-2.3)
[2022-12-21 12:30] VITALS: BP 128/74; PULSE 78; RESP 18
[2022-12-21 13:15] VITALS: BP 134/72; PULSE 72; RESP 18; O2SAT 99
== END 2022-12-21 13:15 | disposition home or self-care (01) ==
LOC: INF 11:43
PROVIDERS: PCP Family Medicine; Visit Provider Nurse Practitioner
DX: E83.42 Hypomagnesemia (principal); Z45.2 Encounter for adjustment and management of vascular access device
CPT/HCPCS: 80048; 83735; 96365; J3475

== ENCOUNTER 2022-12-28 12:14 | Outpatient (CLI) | payer OTHER, SELFPAY ==
[2022-12-28 12:21] VITALS: BMI 39.4
[2022-12-28 12:45] VITALS: BP 148/78; PULSE 79; RESP 16; TEMP 36.4; O2SAT 97
[2022-12-28 12:55] LABS: Chloride 102 mmol/L (98-107); Potassium 4.6 mmoL/L (3.5-5.1); Sodium 135 mmol/L (136-145)
[2022-12-28 12:58] LABS: Anion Gap 6.6 mEq/L (5-15); Blood Urea Nitrogen 30 mg/dl (9-20); Carbon Dioxide 31 mmol/L (22.0-30.0); Creatinine Clearance Estimated 94 mL/min (50-200); Estimated Glomerular Filt Rate 48 ml/min (>60); GFR (African American) 59 ML/MIN (>60); Glucose 114 mg/dl (74-100)
[2022-12-28 12:59] LABS: Magnesium 1.6 mg/dl (1.6-2.3)
[2022-12-28 13:50] VITALS: BP 126/68; PULSE 75; RESP 16; TEMP 36.4; O2SAT 97
--- NOTE | 2022-12-28 14:35 | XR_ITS ---
FINAL REPORT CLINICAL HISTORY: knee pain x 2 weeks COMPARISON: 05/05/2021 FINDINGS: AP, lateral and oblique views of the right knee were obtained. There is no acute fracture or dislocation. The joint space is preserved. The soft tissues are normal. There is a moderate joint effusion. IMPRESSION: No acute osseous abnormality of the right knee. Reviewed, Interpreted and Dictated by Mae Granados MD Transcribed by hSabnam Banuelos Authenticated and [facility]
== END 2022-12-28 13:50 | disposition home or self-care (01) ==
LOC: INF 12:15
PROVIDERS: PCP Family Medicine; Visit Provider Nurse Practitioner
DX: E83.42 Hypomagnesemia (principal)
CPT/HCPCS: 73562; 80048; 83735; 96365; J3475

== ENCOUNTER → 2023-01-07 16:24 | Outpatient (CLI) | payer OTHER, SELFPAY ==
--- NOTE | 2023-01-07 16:25 | MR_ITS ---
PROCEDURE INFORMATION: Exam: MR Right Lower Extremity Joint Without Contrast, Knee Exam date and time: 01/07/2023 4:30 PM Age: 57 years old Clinical indication: Pain; Knee; Right; Additional info: Knee pain. Medial and anterior knee pain. Knee instability. TECHNIQUE: Imaging protocol: Magnetic resonance imaging of the right lower extremity joint without contrast. Exam focused on the knee. COMPARISON: 1. MR KNEE RT WO CON 06/17/2021 3:35 PM 2. CR XR KNEE RT 3V 12/28/2022 2:46 PM 3. CR XR KNEE RT 4V 05/05/2021 12:56 PM FINDINGS: Limitations: Motion artifact. Bones/joints: There is no acute fracture or dislocation. No aggressive bone lesions are present. A benign bone island is incidentally noted. Mild bone marrow edema suggesting an osseous contusion (post-traumatic bone marrow lesion) involves the lateral femoral condyle. The patella is low lying (patella baja). A large joint effusion involves the knee. There is grade II (out of IV) low-grade partial-thickness cartilage loss involving the patellofemoral joint with a superimposed 6 mm focus of full-thickness cartilage loss involving the central femoral trochlea, with underlying subchondral cystic change. There is grade II (out of IV) low-grade partial-thickness cartilage loss involving the medial and lateral joint compartments. Periarticular cysts: A moderate-sized popliteal cyst is present. Medial meniscus: The medial meniscus demonstrates mucinous degeneration without tear. Lateral meniscus: The apex of the lateral meniscus body is truncated, consistent with free edge tearing. Anterior cruciate ligament: The anterior cruciate ligament is intact. Posterior cruciate ligament: The posterior cruciate ligament is intact. Medial capsule and supporting structures: Abnormal increased T2 signal within the medial collateral ligament is consistent with a partial-thickness tear or high-grade sprain (grade II injury). Lateral capsule and supporting structures: Mild thickening and intermediate signal involving the femoral attachment of the fibular collateral ligament ligament suggests remote low-grade injury. No acute tear. Moderate tendinosis involves the proximal popliteus tendon. Extensor mechanism of knee: No tear. Variable signal involving the distal patellar tendon on the sagittal sequence is likely due to magic angle artifact. Enthesopathic changes involve the quadriceps tendon insertion on the patella. Muscles: Unremarkable. Soft tissues: Moderate edema involves the soft tissues surrounding the knee that is most prominent anteromedially. IMPRESSION: 1. Medial collateral ligament partial-thickness tear or high-grade sprain (grade II injury). 2. Prior low-grade injury of the fibular collateral ligament. 3. Truncation of the lateral meniscus body apex consistent with free edge tearing. 4. Mild bone marrow edema suggesting an osseous contusion of the lateral femoral condyle. 5. Focus of grade IV (out of IV) full-thickness cartilage loss measuring 6 mm involving the femoral trochlea, with adjacent grade II low-grade partial-thickness cartilage loss. 6. Large knee joint effusion. 7. Moderate popliteal cyst. 8. Patella baja.
== END ==
PROVIDERS: PCP Family Medicine; Visit Provider Orthopaedic Surgery
DX: M17.11 Unilateral primary osteoarthritis, right knee (principal)
CPT/HCPCS: 73721

== ENCOUNTER 2023-01-25 12:39 | Outpatient (CLI) | payer OTHER, SELFPAY ==
[2023-01-25 12:52] VITALS: BMI 40.1
[2023-01-25 13:09] VITALS: BP 145/69; PULSE 74; RESP 16; TEMP 36.8; O2SAT 96
[2023-01-25 13:16] LABS: Chloride 101 mmol/L (98-107); Potassium 4.9 mmoL/L (3.5-5.1); Sodium 135 mmol/L (136-145)
[2023-01-25 13:19] LABS: Blood Urea Nitrogen 27 mg/dl (9-20); Creatinine Clearance Estimated 96 mL/min (50-200); Estimated Glomerular Filt Rate 48 ml/min (>60); GFR (African American) 59 ML/MIN (>60)
[2023-01-25 13:20] LABS: Anion Gap 9.9 mEq/L (5-15); Calcium 8.9 mg/dl (8.4-10.2); Carbon Dioxide 29 mmol/L (22.0-30.0); Glucose 134 mg/dl (74-100); Magnesium 1.7 mg/dl (1.6-2.3)
[2023-01-25 13:50] VITALS: BP 119/70; PULSE 69; RESP 16; TEMP 36.8; O2SAT 96
[2023-01-25 14:15] VITALS: BP 122/72; PULSE 68; RESP 14; O2SAT 95
== END 2023-01-25 14:20 | disposition home or self-care (01) ==
LOC: INF 12:39
PROVIDERS: PCP Family Medicine; Visit Provider Physician Assistant
DX: E83.42 Hypomagnesemia (principal)
CPT/HCPCS: 80048; 83735; 96365; J3475

== ENCOUNTER 2023-02-08 12:18 | Outpatient (CLI) | payer OTHER, SELFPAY ==
[2023-02-08 12:25] VITALS: BMI 40.1
[2023-02-08 12:40] VITALS: BP 111/76; PULSE 68; RESP 18; TEMP 36.6; O2SAT 97
[2023-02-08 12:57] LABS: Anion Gap 10.7 mEq/L (5-15); Blood Urea Nitrogen 27 mg/dl (9-20); Calcium 8.7 mg/dl (8.4-10.2); Carbon Dioxide 27 mmol/L (22.0-30.0); Chloride 99 mmol/L (98-107); Creatinine Clearance Estimated 90 mL/min (50-200); Estimated Glomerular Filt Rate 45 ml/min (>60); GFR (African American) 54 ML/MIN (>60); Glucose 155 mg/dl (74-100); Magnesium 1.6 mg/dl (1.6-2.3); Potassium 3.7 mmoL/L (3.5-5.1); Sodium 133 mmol/L (136-145)
[2023-02-08 13:10] VITALS: BP 113/79; PULSE 71; RESP 18; O2SAT 98
[2023-02-08 13:50] VITALS: BP 109/62; PULSE 71; RESP 18; O2SAT 98
== END 2023-02-08 13:56 | disposition home or self-care (01) ==
LOC: INF 12:19
PROVIDERS: PCP Family Medicine; Visit Provider Nurse Practitioner
DX: E83.42 Hypomagnesemia (principal)
CPT/HCPCS: 80048; 83735; 96365; J3475

== ENCOUNTER 2023-02-22 11:38 | Outpatient (CLI) | payer OTHER, SELFPAY ==
[2023-02-22 12:35] VITALS: BP 107/76; PULSE 86; RESP 18; O2SAT 97
[2023-02-22 12:37] LABS: Chloride 99 mmol/L (98-107); Potassium 4.7 mmoL/L (3.5-5.1); Sodium 135 mmol/L (136-145)
[2023-02-22 12:39] LABS: Alanine Aminotransferase 13 U/L (12-78); Alkaline Phosphatase 86 U/L (38-126); Anion Gap 8.7 mEq/L (5-15); Aspartate Amino Transferase 17 U/L (17-59); Bilirubin,Total 0.5 mg/dl (0.2-1.3); Blood Urea Nitrogen 29 mg/dl (9-20); Carbon Dioxide 32 mmol/L (22.0-30.0); Estimated Glomerular Filt Rate 48 ml/min (>60); GFR (African American) 59 ML/MIN (>60)
[2023-02-22 12:40] LABS: Albumin Level 3.8 g/dl (3.5-5.0); Albumin/Globulin Ratio 1.4 (1.1-1.8); Calcium 9.4 mg/dl (8.4-10.2); Chol/HDL Ratio 4.6 (1-3.5); Cholesterol 211 mg/dl (140-200); Globulin 2.8 g/dL (1.3-3.2); Glucose 126 mg/dl (74-100); HDL Cholesterol 46 mg/dl (40-60); Magnesium 1.6 mg/dl (1.6-2.3); Total Protein,Serum 6.6 g/dl (6.3-8.2); Triglycerides 150 mg/dl (30-150); VLDL Cholesterol 30 mg/dL (0-40)
[2023-02-22 12:48] LABS: Basophils # 0.1 K/mm3 (0-0.2); Basophils % 0.6 % (0.1-2.0); Eosinophils # 0.5 K/mm3 (0.0-0.4); Eosinophils % 5.4 % (0.1-12.0); Hematocrit 51.8 % (42.0-52.0); Hemoglobin 16.2 g/dL (14.1-18.0); Lymphocytes % 23.7 % (10-50); Mean Corpuscular HGB Conc 31.3 g/dL (31.8-35.4); Mean Corpuscular Hemoglobin 29.1 pg (27.0-31.2); Mean Corpuscular Volume 93.2 fl (80-94); Mean Platelet Volume 7.6 fl (7.4-10.4); Monocytes # 0.6 K/mm3 (0.1-1.0); Monocytes % 6.7 % (1.7-9.3); Neutrophils # 5.5 K/mm3 (1.8-7.8); Neutrophils % 63.6 % (37.0-80.0); Platelet Count 292 K/mm3 (142-424); Red Blood Count 5.56 M/mm3 (4.60-6.20); Red Cell Distribution Width 18.2 % (11.5-17.5); White Blood Count 8.6 K/mm3 (4.8-10.8)
[2023-02-22 12:51] LABS: Direct LDL Cholesterol 123.69 mg/dL (100-129)
[2023-02-22 13:11] LABS: Thyroid Stimulating Hormone 1.53 uIU/mL (0.465-4.68)
[2023-02-22 13:18] LABS: Hemoglobin A1C 6.1 % (4.0-6.0)
[2023-02-22 13:40] LABS: Uric Acid 10.7 mg/dl (3.5-8.5)
[2023-02-22 13:52] VITALS: BP 111/66; PULSE 64; RESP 18
== END 2023-02-22 13:52 | disposition home or self-care (01) ==
LOC: LAB 11:39
PROVIDERS: PCP Family Medicine; Visit Provider Family Medicine
DX: E03.9 Hypothyroidism, unspecified (principal); M10.9 Gout, unspecified; E11.9 Type 2 diabetes mellitus without complications; I50.9 Heart failure, unspecified; E78.5 Hyperlipidemia, unspecified; N18.9 Chronic kidney disease, unspecified; Z79.84 Long term (current) use of oral hypoglycemic drugs
CPT/HCPCS: 36415; 80053; 80061; 83036; 83735; 84443; 84550; 85025; 96365; J3475

== ENCOUNTER 2023-03-22 12:30 | Outpatient (CLI) | payer OTHER, SELFPAY ==
[2023-03-22 12:35] VITALS: BP 130/71; PULSE 81; RESP 18; O2SAT 97; BMI 41.0
[2023-03-22 12:58] LABS: Chloride 106 mmol/L (98-107); Sodium 135 mmol/L (136-145)
[2023-03-22 13:01] LABS: Blood Urea Nitrogen 24 mg/dl (9-20); Carbon Dioxide 25 mmol/L (22.0-30.0); Creatinine Clearance Estimated 102 mL/min (50-200); Estimated Glomerular Filt Rate 52 ml/min (>60); GFR (African American) 63 ML/MIN (>60); Glucose 129 mg/dl (74-100); Magnesium 1.5 mg/dl (1.6-2.3)
[2023-03-22 13:58] VITALS: BP 136/72; PULSE 78; RESP 18; O2SAT 99
== END 2023-03-22 15:15 | disposition home or self-care (01) ==
LOC: INF 12:30
PROVIDERS: PCP Family Medicine; Visit Provider Nurse Practitioner
DX: E83.42 Hypomagnesemia (principal)
CPT/HCPCS: 80048; 83735; 96365; J3475

== ENCOUNTER 2023-04-26 12:13 | Outpatient (CLI) | payer OTHER, SELFPAY ==
[2023-04-26 12:21] VITALS: BMI 40.3
[2023-04-26 12:36] VITALS: BP 117/72; PULSE 71; RESP 18; O2SAT 97
[2023-04-26 12:43] LABS: Chloride 92 mmol/L (98-107)
[2023-04-26 12:44] LABS: Potassium 4.1 mmoL/L (3.5-5.1); Sodium 130 mmol/L (136-145)
[2023-04-26 12:46] LABS: Blood Urea Nitrogen 23 mg/dl (9-20); Creatinine Clearance Estimated 95 mL/min (50-200); Estimated Glomerular Filt Rate 48 ml/min (>60); GFR (African American) 58 ML/MIN (>60)
[2023-04-26 12:47] LABS: Anion Gap 17.1 mEq/L (5-15); Calcium 7.8 mg/dl (8.4-10.2); Carbon Dioxide 25 mmol/L (22.0-30.0); Glucose 178 mg/dl (74-100); Magnesium 0.8 mg/dl (1.6-2.3)
--- NOTE | 2023-04-26 12:47 | PC.NURSE ---
1247-deloris pringle called rn at 1247 to report magnesium level 0.8. Rn repeated and verified pt name,, and lab value. Result called to cardiology clinic and no new orders received;follow standing order for magnesium infusion.
[2023-04-26 14:12] VITALS: BP 142/73; PULSE 71; RESP 18; O2SAT 96
== END 2023-04-26 14:12 | disposition home or self-care (01) ==
LOC: INF 12:15
PROVIDERS: Nurse Practitioner; PCP Nurse Practitioner Family; Visit Provider Physician Assistant
DX: E83.42 Hypomagnesemia (principal)
CPT/HCPCS: 80048; 83735; 96365; J3475

== ENCOUNTER 2023-05-31 12:36 | Outpatient (CLI) | payer OTHER, SELFPAY ==
[2023-05-31 12:43] VITALS: BMI 40.3
[2023-05-31 13:05] VITALS: BP 139/74; PULSE 74; RESP 18; O2SAT 99
[2023-05-31 13:14] LABS: Chloride 95 mmol/L (98-107); Potassium 4.4 mmoL/L (3.5-5.1); Sodium 133 mmol/L (136-145)
[2023-05-31 13:17] LABS: Anion Gap 12.4 mEq/L (5-15); Blood Urea Nitrogen 19 mg/dl (9-20); Calcium 8.8 mg/dl (8.4-10.2); Carbon Dioxide 30 mmol/L (22.0-30.0); Creatinine Clearance Estimated 102 mL/min (50-200); Estimated Glomerular Filt Rate 52 ml/min (>60); GFR (African American) 63 ML/MIN (>60); Glucose 132 mg/dl (74-100); Magnesium 1.1 mg/dl (1.6-2.3)
[2023-05-31 13:30] VITALS: BP 142/75; PULSE 72; RESP 18; O2SAT 99
[2023-05-31 14:15] VITALS: BP 148/71; PULSE 72; O2SAT 99
== END 2023-05-31 14:15 | disposition home or self-care (01) ==
LOC: INF 12:37
PROVIDERS: Nurse Practitioner; PCP Nurse Practitioner Family; Visit Provider Physician Assistant
DX: E83.42 Hypomagnesemia (principal)
CPT/HCPCS: 80048; 83735; 96365; J3475

== ENCOUNTER 2023-06-03 10:22 | Day surgery (SDC) | payer OTHER, SELFPAY ==
[2023-05-24 10:00] VITALS: BMI 39.9
[2023-06-03 10:44] VITALS: BP 156/106; PULSE 81; RESP 18; TEMP 36.2; O2SAT 98
[2023-06-03 10:49] LABS: POC Glucose,Bedside 130 (70-110)
--- NOTE | 2023-06-03 11:20 | EXP.ANES.CKL ---
[facility] Disclaimer: The information contained in this section may have been updated after the patient was seen, as this information can be updated by other users. Medical History Acute on chronic heart failure Anxiety and depression Atypical angina Bakers cyst Bronchitis CAD (coronary artery disease) Cardiomyopathy CHF (congestive heart failure) CHF (congestive heart failure) CKD (chronic kidney disease) Cough Diabetes mellitus DVT (deep venous thrombosis) Dyspnea Edema Epididymitis Femur fracture GERD (gastroesophageal reflux disease) Glaucoma Gout of right knee History of sinus problem HLD (hyperlipidemia) HTN (hypertension) Hyperlipidemia associated with type 2 diabetes mellitus Hypocalcemia Hypomagnesemia Hypothyroidism Myocardial infarct Otitis media, left Pain around toenail, left foot PTSD (post-traumatic stress disorder) 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 Renal insufficiency Scrotal edema Scrotal swelling Type 2 diabetes mellitus with complication, without long-term current use of insulin Typical angina Surgical History History of cholecystectomy History of heart artery stent S/P drug eluting coronary stent placement S/P ORIF (open reduction internal fixation) fracture Family History Other Family history of cancer Family history of diabetes mellitus type II Family history of hypertension Social History Smoking Status: Current every day smoker tobacco type: cigarettes packs per day: 1 pack-years: 40 second hand exposure: No alcohol intake: current substance use type: former substance user and marijuana current occupational status: disabled Travel in the last 8 weeks: None household members: none housing: apartment lives independently: Yes marital status: single education level: high school service: No assisted: No current occupational exposures/hazards: No caffeine: Yes special veronica needs: No agree to transfusion: No do you feel safe at home: Yes victim of physical abuse: No victim of emotional abuse: No victim of sexual abuse: No would you like helpful sources: No [facility] Anesthesia Checklist Patient Identification Patient Identification: Arm Band and Verbal (Name & ) Structural Data Admitted From: Home Planned Operative Procedure/s: EGD Consent for Planned Operative Procedure(s) Verified: Yes NPO Status Verified Time NPO: 00:00 Additional verifications Anesthesia Reactions: No Hx Blood Transfusions: No Blood Transfusion Reaction: No Airway Assessment Mallampati Score:: Class III C-Spine Mobility Assessed: Yes TMJ Mobility Assessed: Yes Dentition: Dentures-poor fitting Neurological Assessment Level of Consciousness: Awake Hx Seizures: No Numbness or tingling in extremities: No Anesthesia Plan Anesthesia Risk discussed: Yes Anesthesia Plan: Verified ASA Class: III Anesthesia Type: MAC
[2023-06-03 11:43] VITALS: O2SAT 98
--- NOTE | 2023-06-03 11:53 | HMH.SCOPE ---
Procedure: Date: 06/03/23 Patient Date of :: 1965 Procedure Performed:: EGD Indications:: History of Barretts Performing Provider:: Ailyn Hubbard MD Referring Provider:: Ellen Goodwin Sedation:: Propofol Procedure:: The gastroscope was gently passed through the incisoral orifice into the oral cavity and under direct visualization the esophagus was intubated. The endoscope was passed down the esophagus, through the stomach, and into the duodenum. Color, texture, mucosa, and anatomy of the esophagus, stomach, and duodenum were carefully examined with the scope. Findings:: Oropharynx: normal Esophagus: normal, no visual evidence of barretts, mucosa normal EG Junction: intact at 40 cm Cardia: normal Fundus: normal Body: normal Antrum: normal Duodenal bulb: normal Duodenum (second and third portion): normal Impression: Normal EGD. No evidence of barretts changes seen Recommendations:: Consider recheck in about FIVE years or so if clinically indicated. Complications:: None Estimated blood obtained (mL): 0 Colonoscopy Component Colonoscopy Component Was a colonoscopy performed during today's procedure?: No
[2023-06-03 11:57] VITALS: BP 127/79; PULSE 82; RESP 18; TEMP 36.4; O2SAT 91
[2023-06-03 12:07] VITALS: BP 134/96; PULSE 75; RESP 16; O2SAT 93
[2023-06-03 12:17] VITALS: BP 135/87; PULSE 78; RESP 18; O2SAT 97
[2023-06-03 12:27] VITALS: BP 136/90; PULSE 77; RESP 16; TEMP 36.6; O2SAT 96
== END 2023-06-03 12:27 | disposition home or self-care (01) ==
PROVIDERS: PCP Nurse Practitioner Family; Visit Provider Internal Medicine Gastroenterology
PROC: 0DJ08ZZ Inspection of Upper Intestinal Tract, Via Natural or Artificial Opening Endoscopic (ICD-10-PCS; CPT 43235; principal; 2023-06-03 11:30)
DX: K22.70 Barrett's esophagus without dysplasia (principal); E11.9 Type 2 diabetes mellitus without complications
CPT/HCPCS: 43235; 82962

== ENCOUNTER → 2023-06-09 11:00 | Outpatient (POV) | payer OTHER, SELFPAY ==
--- NOTE | 2023-06-09 11:24 | EXP.PAIN.OV ---
HPI Data of Consult Patient: new to practice Consult date: 06/09/23 Requesting Physician: Linda Gibbs APRN Primary Care Provider: Ellen Goodwin APRN Consult Narrative Reason for consult: Right knee pain, gout History of present illness: Mr. Guerra is a 58 year old male who presents today as a new patient. He is a referral from Ellen Goodwin's office. Today he rates his pain a 7 out of 10. Patient states his pain is all in his right knee as well as his ankles/feet related to gout flareups. Patient does describe his pain as a achy sensation that is worse with increased activity. Patient states that he has been experiencing gout flareups for the last 3 years and is on allopurinol. He states his knee pain has been going on the last 2 years. He does state that Dr. Brown was seeing him for his knee issues and did do injections however they did not last as long as they initially did from the beginning. Patient does have a history of a Langley's cyst behind his knee. Patient states at the time when he did see Dr. Brown he told him he had osteoarthritis and he was too young for a knee replacement. Patient does now see Dr. Andre and has seen him for 2 visits in which she is had his cyst drained as well as a intra-articular knee injection. Patient does state that he is scheduled for another one coming up in the next week. Patient does state that he has tried [id number] medications such as ibuprofen, Tylenol heat and ice along with multiple topicals with minimal improvement. He does state that currently he used a hemp cream that does provide temporary relief. Patient states that he is requesting something for pain to help him get through each day in times of flareup with his gout and knee pain. Patient is not on any scheduled medications. His Uziel is [phone]. Its been reviewed and appropriate. CC: Linda Gibbs APRN [facility] Disclaimer: The information contained in this section may have been updated after the patient was seen, as this information can be updated by other users. Medical History Acute on chronic heart failure Anxiety and depression Atypical angina Bakers cyst Bronchitis CAD (coronary artery disease) Cardiomyopathy CHF (congestive heart failure) CHF (congestive heart failure) CKD (chronic kidney disease) Cough Diabetes mellitus DVT (deep venous thrombosis) Dyspnea Edema Epididymitis Femur fracture GERD (gastroesophageal reflux disease) Glaucoma Gout of right knee History of sinus problem HLD (hyperlipidemia) HTN (hypertension) Hyperlipidemia associated with type 2 diabetes mellitus Hypocalcemia Hypomagnesemia Hypothyroidism Myocardial infarct Otitis media, left Pain around toenail, left foot PTSD (post-traumatic stress disorder) 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 Renal insufficiency Scrotal edema Scrotal swelling Type 2 diabetes mellitus with complication, without long-term current use of insulin Typical angina Surgical History History of cholecystectomy History of heart artery stent S/P drug eluting coronary stent placement S/P ORIF (open reduction internal fixation) fracture Family History Other Family history of cancer Family history of diabetes mellitus type II Family history of hypertension Social History (Updated 06/09/23 @ 11:46 by Em Means RN) Smoking Status: Current every day smoker tobacco type: cigarettes packs per day: 1 pack-years: 40 second hand exposure: No alcohol intake: current substance use type: former substance user and marijuana current occupational status: disabled Travel in the last 8 weeks: None household members: none housing: apartment lives independently: Yes marital status: single education level: high school service: No fdc: No current occupat
[2023-06-09 11:45] VITALS: BP 164/113; PULSE 103; RESP 18; O2SAT 94; BMI 39.9
== END | disposition home or self-care (01) ==
PROVIDERS: PCP Nurse Practitioner Family; Visit Provider Nurse Practitioner Family
DX: M1A.39X1 Chronic gout due to renal impairment, multiple sites, with tophus (tophi) (principal); M25.561 Pain in right knee; G89.29 Other chronic pain
CPT/HCPCS: 99202; G0463

== ENCOUNTER 2023-06-17 19:07 | Emergency (ER) | payer OTHER, SELFPAY ==
[2023-06-17 19:07] VITALS: BP 156/91; PULSE 93; RESP 16; TEMP 36.8; O2SAT 93; BMI 39.9
[2023-06-17 20:00] VITALS: BP 153/103; PULSE 97; O2SAT 96
--- NOTE | 2023-06-17 20:10 | CT_ITS ---
PROCEDURE INFORMATION: Exam: CT Abdomen And Pelvis With Contrast Exam date and time: 06/17/2023 8:28 PM Age: 58 years old Clinical indication: Abdominal pain; Additional info: Abd pain TECHNIQUE: Imaging protocol: Computed tomography of the abdomen and pelvis with contrast. Radiation optimization: All CT scans at this facility use at least one of these dose optimization techniques: automated exposure control; mA and/or kV adjustment per patient size (includes targeted exams where dose is matched to clinical indication); or iterative reconstruction. Contrast material: ISOVUE; Contrast volume: 75 ml; Contrast route: IV; REPORTING DATA: Count of CT and Cardiac NM exams in prior 12 months: This patient has received [address] and 0 known cardiac nuclear medicine studies in the 12 months prior to the current study. COMPARISON: CT ABDOMEN PELVIS WO CON 10/22/2022 5:35 AM FINDINGS: Liver: There is diffuse hypoattenuation of the liver compatible with mild hepatic steatosis. Gallbladder and bile ducts: There are surgical clips within the gallbladder fossa. Pancreas: Normal. No ductal dilation. Spleen: Normal. No splenomegaly. Adrenal glands: Normal. No mass. Kidneys and ureters: Left renal Bosniak 1 cystic lesion that is homogeneous and fluid density (-9-20 HU), no septations or calcifications, having dash smooth and thin. Measurement is 12 mm. No follow-up recommended. Stomach and bowel: Unremarkable. No obstruction. No mucosal thickening. Appendix: No evidence of appendicitis. Intraperitoneal space: Unremarkable. No free air. No significant fluid collection. Vasculature: Moderate calcific atherosclerotic disease of the abdominal aorta without aneurysmal dilatation is present. Mesenteric vessels are opacified with contrast making ischemic changes less likely. Lymph nodes: Right lower quadrant mesenteric inflammatory changes with prominent nodes which can be seen with mesenteric adenitis in the appropriate clinical setting. Urinary bladder: Unremarkable as visualized. Reproductive: Unremarkable as visualized. Bones/joints: Moderate loss of intervertebral disc space with degenerative changes at lumbar spine. Soft tissues: Left IM nail hardware metallic artifact obscures evaluation of lower pelvis. IMPRESSION: Right lower quadrant mesenteric inflammatory changes with prominent nodes which can be seen with mesenteric adenitis in the appropriate clinical setting. Mesenteric vessels are opacified with contrast making ischemic changes less likely. COMMENTS: Consistent with the [employer]'s Incidental Findings Committee white paper (J Am Jeremy Radiol 2018): Any incidental renal lesion less than 1 cm or classified as too small to characterize, or any incidental cystic renal lesion characterized as simple-appearing, is likely benign. No follow-up imaging is recommended for these lesions per consensus recommendations based on imaging criteria.
--- NOTE | 2023-06-17 20:25 | [facility].EDGENADL ---
Discharge Plan Disposition Patient Disposition: Home, Self-Care Condition: Good Prescriptions Prescriptions: New dicyclomine 10 mg capsule 10 mg PO TID PRN (Reason: abdominal pain) Qty: 20 0RF ondansetron HCl 4 mg tablet 4 mg PO Q8H PRN (Reason: nausea and vomiting) 5 Days Qty: 30 0RF No Action pantoprazole 40 mg tablet,delayed release (DR/EC) 40 mg PO DAILY Qty: 30 6RF famotidine 40 mg tablet 40 mg PO BID Qty: 60 6RF docusate sodium [Colace] 100 mg capsule 100 mg PO DAILY PRN (Reason: bowels) hydroxyzine pamoate 50 mg capsule 50 mg PO BID PRN (Reason: itching) Qty: 30 1RF triamcinolone acetonide 0.1 % cream 1 applic topical QID PRN (Reason: itching) Qty: 454 0RF capsaicin 0.1 % cream 1 applic topical BID PRN Rx Instructions: do not wash area for at least 30 min after application ketoconazole 2 % shampoo topical pimecrolimus [Elidel] 1 % cream topical methocarbamol 750 mg tablet 750 mg PO TID PRN torsemide 100 mg tablet 100 mg PO DAILY PRN promethazine 25 mg tablet 25 mg PO TID PRN (Reason: nausea and vomiting) Qty: 10 0RF nitroglycerin 0.4 MG tablet, sublingual 0.4 mg SL NEEDED PRN (Reason: Chest Pain) Rx Instructions: DISSOLVE 1 TABLET UNDER THE TONGUE EVERY 5 TO 15 MINUTES NEEDED FOR CHEST PAIN. IF NO RELIEF AFTER 3 DOSES CALL 911 bisoprolol fumarate 5 mg tablet 10 mg PO DAILY clopidogrel 75 mg tablet 75 mg PO DAILY albuterol sulfate [ProAir HFA] 90 mcg/actuation HFA aerosol inhaler 1 - 2 puff inhalation Q4HP PRN (Reason: asthma) Rx Instructions: INHALE 2 PUFFS BY MOUTH EVERY 4 TO 6 HOURS NEEDED SHORTNESS OF BREATH OR WHEEZING fluticasone propionate 50 mcg/actuation spray,suspension 1 spray intranasal DAILY PRN (Reason: allergies) Rx Instructions: USE 1 SPRAY INEACH NOSTRIL ONCE A DAY FOR ALLERGIES polyethylene glycol 3350 [Miralax] 17 gram/dose powder 17 g PO DAILY PRN (Reason: constipation) aspirin 81 MG tablet,delayed release (DR/EC) 81 mg PO DAILY magnesium sulfate 4 mEq/mL (50 %) solution 2 g IV WEEKLY (DME) blood-glucose meter Misc See Rx Instructions .ROUTE .MEDSUPPLY Rx Instructions: As directed glipizide 10 mg tablet See Rx Instructions .ROUTE .COMPLEX Rx Instructions: TAKE ONE TABLET BY MOUTH 2 TIMES A DAY FOR DIABETES (DME) OneTouch Verio test strips Strip See Rx Instructions .ROUTE .MEDSUPPLY Rx Instructions: Check Glucose 4 times daily spironolactone 25 mg tablet See Rx Instructions .ROUTE .COMPLEX Rx Instructions: TAKE ONE TABLET BY MOUTH ONCE A DAY FOR FLUID levothyroxine 50 mcg tablet See Rx Instructions .ROUTE .COMPLEX Rx Instructions: TAKE ONE TABLET BY MOUTH ONCE A DAY FOR THYROID ammonium lactate 12 % cream 1 applic topical DAILY colchicine (gout) 0.6 mg tablet 0.6 mg PO DAILY Linzess 145 mcg capsule 145 mcg PO DAILY (DME) lancets 33 gauge misc See Rx Instructions .ROUTE .MEDSUPPLY Rx Instructions: Check Glucose 4 times daily semaglutide 0.25 mg or 0.5 mg(2 mg/1.5 mL) pen injector 0.25 mg SQ WEEKLY Rx Instructions: for 4 weeks budesonide-formoterol [Symbicort] 160-4.5 mcg/actuation HFA aerosol inhaler See Rx Instructions .ROUTE .COMPLEX PRN (Reason: allergies) Rx Instructions: INHALE 2 PUFFS BY MOUTH 2 TIMES A DAY FOR SHORTNESS OF BREATH PRN; loratadine 10 mg tablet 10 mg PO DAILY PRN (Reason: allergies) Referrals Follow up/Referrals: Mingo Weiss, [Primary Care Provider] - See instructions Activity Restrictions/Add. Instructions Additional Instructions/Restrictions: Please take Bentyl and Zofran as needed for abdominal pain and nausea. Please remain hydrated. If you are unable to maintain hydration, recommend returning to the ER. Recommend taking short course of Tylenol
[2023-06-17 20:26] LABS: Adenovirus F 40/41, stool Not Detected (NotDetected); Astrovirus Not Detected (NotDetected); Campylobacter Not Detected (NotDetected); Clostridium Difficile A/B, PCR Not Detected (NotDetected); Cryptosporidium Not Detected (NotDetected); Cyclospora Cayetanesis Not Detected (NotDetected); Entamoeba histolytica Not Detected (NotDetected); Enteroaggregative E coli Not Detected (NotDetected); Enteropathogenic E coli Not Detected (NotDetected); Enterotoxigenic E coli Not Detected (NotDetected); Giardia lamblia Not Detected (NotDetected); Norovirus Not Detected (NotDetected); Plesimonas Shigalloides, PCR Not Detected (NotDetected); Rotavirus A Not Detected (NotDetected); Salmonella, PCR Not Detected (NotDetected); Sapovirus Not Detected (NotDetected); Shiga-like toxin E coli Not Detected (NotDetected); Shigella Enterovasive E coli Not Detected (NotDetected); Vibrio Cholerae Not Detected (NotDetected); Vibrio, PCR Not Detected (NotDetected); Yersinia Entercolitica, PCR Not Detected (NotDetected)
[2023-06-17 20:53] VITALS: BP 122/93; PULSE 84; O2SAT 97
[2023-06-17 20:58] LABS: Microscopic, Urine URINE MICROSCOPIC (MICROSCOPIC)
[2023-06-17 21:06] LABS: Appearance,Urine CLEAR (Clear); Bilirubin,Urine Negative (Negative); Blood, Urine Negative (Negative); Color,Urine YELLOW (Yellow); Glucose,Urine (UA) Negative (Negative); Ketones,Urine Negative (Negative); Leukocyte Esterase,Urine Negative (Negative); Nitrate,Urine Negative (Negative); PH,Urine 5.5 (5.0-8.5); Protein,Urine TRACE (Negative); Specific Gravity, Urine <= 1.005 (1.005-1.030); Urobilinogen,Urine 0.2 EU/dl (0.2)
[2023-06-17 21:23] LABS: WBC,Urine Occasional #/hpf (0-3)
--- NOTE | 2023-06-17 21:58 | PC.NURSE ---
patient updated on status, call light within reach
[2023-06-18 00:20] VITALS: BP 134/75; PULSE 81; RESP 16; TEMP 36.8; O2SAT 97
== END 2023-06-18 00:32 | disposition home or self-care (01) ==
PROVIDERS: Emergency Provider Emergency Medicine; PCP Internal Medicine
DX: R10.31 Right lower quadrant pain (principal); R19.7 Diarrhea, unspecified; R11.0 Nausea; I13.0 Hypertensive heart and chronic kidney disease with heart failure and stage 1 through stage 4 chronic kidney disease, or unspecified chronic kidney disease; I50.89 Other heart failure; E11.22 Type 2 diabetes mellitus with diabetic chronic kidney disease; N18.9 Chronic kidney disease, unspecified; I42.9 Cardiomyopathy, unspecified; I25.118 Atherosclerotic heart disease of native coronary artery with other forms of angina pectoris; E11.39 Type 2 diabetes mellitus with other diabetic ophthalmic complication; H42 Glaucoma in diseases classified elsewhere; F41.9 Anxiety disorder, unspecified; F32.A Depression, unspecified; K21.9 Gastro-esophageal reflux disease without esophagitis; E78.5 Hyperlipidemia, unspecified; E03.9 Hypothyroidism, unspecified; M10.9 Gout, unspecified; I25.2 Old myocardial infarction; F43.10 Post-traumatic stress disorder, unspecified; F17.210 Nicotine dependence, cigarettes, uncomplicated
CPT/HCPCS: 74177; 81001; 87507; 96361; 96374; 96375; 96376; 99284; J2405; Q9967

== ENCOUNTER → 2023-06-17 23:33 | Outpatient (CLI) | payer OTHER, SELFPAY ==
[2023-06-17 18:43] LABS: Basophils % 0.4 % (0.1-2.0); Eosinophils # 0.2 K/mm3 (0.0-0.4); Eosinophils % 1.3 % (0.1-12.0); Hematocrit 51.6 % (42.0-52.0); Lymphocytes # 2.2 K/mm3 (0.7-4.5); Lymphocytes % 18.8 % (10-50); Mean Corpuscular Hemoglobin 26.7 pg (27.0-31.2); Mean Corpuscular Volume 86.3 fl (80-94); Mean Platelet Volume 7.6 fl (7.4-10.4); Monocytes # 0.9 K/mm3 (0.1-1.0); Monocytes % 7.9 % (1.7-9.3); Neutrophils # 8.3 K/mm3 (1.8-7.8); Neutrophils % 71.7 % (37.0-80.0); Platelet Count 429 K/mm3 (142-424); Red Blood Count 5.98 M/mm3 (4.60-6.20); Red Cell Distribution Width 16.9 % (11.5-17.5); White Blood Count 11.6 K/mm3 (4.8-10.8)
[2023-06-17 19:18] LABS: Chloride 90 mmol/L (98-107); Sodium 130 mmol/L (136-145)
[2023-06-17 19:19] LABS: Potassium 4.1 mmoL/L (3.5-5.1)
[2023-06-17 19:21] LABS: Alanine Aminotransferase 19 U/L (12-78); Alkaline Phosphatase 100 U/L (38-126); Anion Gap 19.1 mEq/L (5-15); Aspartate Amino Transferase 27 U/L (17-59); Bilirubin,Total 0.8 mg/dl (0.2-1.3); Blood Urea Nitrogen 16 mg/dl (9-20); Calcium 9.2 mg/dl (8.4-10.2); Carbon Dioxide 25 mmol/L (22.0-30.0); Estimated Glomerular Filt Rate 52 ml/min (>60); GFR (African American) 63 ML/MIN (>60); Glucose 73 mg/dl (74-100)
[2023-06-17 19:22] LABS: Albumin Level 3.8 g/dl (3.5-5.0); Albumin/Globulin Ratio 1.3 (1.1-1.8); Total Protein,Serum 6.8 g/dl (6.3-8.2)
== END ==
PROVIDERS: PCP Internal Medicine; Visit Provider Internal Medicine
DX: R11.2 Nausea with vomiting, unspecified (principal); R19.7 Diarrhea, unspecified
CPT/HCPCS: 80053; 85025

== ENCOUNTER 2023-07-12 12:57 | Outpatient (CLI) | payer OTHER, SELFPAY ==
[2023-07-12 13:01] VITALS: BMI 38.4
[2023-07-12 13:15] VITALS: BP 147/85; PULSE 68; RESP 18; TEMP 36.8; O2SAT 96
[2023-07-12 13:22] LABS: Chloride 101 mmol/L (98-107); Potassium 4.4 mmoL/L (3.5-5.1); Sodium 134 mmol/L (136-145)
[2023-07-12 13:25] LABS: Anion Gap 13.4 mEq/L (5-15); Blood Urea Nitrogen 22 mg/dl (9-20); Carbon Dioxide 24 mmol/L (22.0-30.0); Creatinine Clearance Estimated 97 mL/min (50-200); Estimated Glomerular Filt Rate 52 ml/min (>60); GFR (African American) 63 ML/MIN (>60); Glucose 169 mg/dl (74-100); Magnesium 1.2 mg/dl (1.6-2.3)
[2023-07-12 14:40] VITALS: BP 135/85; PULSE 66; RESP 18
== END 2023-07-12 14:40 | disposition home or self-care (01) ==
LOC: INF 12:58
PROVIDERS: Nurse Practitioner; PCP Internal Medicine; Visit Provider Physician Assistant
DX: E83.42 Hypomagnesemia (principal)
CPT/HCPCS: 80048; 83735; 96365; J3475

== ENCOUNTER 2023-08-16 13:03 | Outpatient (CLI) | payer OTHER, SELFPAY ==
[2023-08-16 13:10] VITALS: BMI 40.3
[2023-08-16 13:29] VITALS: BP 114/76; PULSE 66; RESP 18; TEMP 36.6; O2SAT 98
[2023-08-16 13:47] LABS: Anion Gap 11.8 mEq/L (5-15); Blood Urea Nitrogen 33 mg/dl (9-20); Calcium 8.8 mg/dl (8.4-10.2); Carbon Dioxide 31 mmol/L (22.0-30.0); Chloride 93 mmol/L (98-107); Creatinine Clearance Estimated 75 mL/min (50-200); Estimated Glomerular Filt Rate 37 ml/min (>60); GFR (African American) 44 ML/MIN (>60); Glucose 160 mg/dl (74-100); Magnesium 1.1 mg/dl (1.6-2.3); Potassium 4.8 mmoL/L (3.5-5.1); Sodium 131 mmol/L (136-145)
[2023-08-16 13:59] VITALS: BP 111/79; PULSE 68; RESP 18; O2SAT 98
[2023-08-16 14:48] VITALS: BP 115/72; PULSE 64; RESP 18; O2SAT 98
== END 2023-08-16 14:51 | disposition home or self-care (01) ==
LOC: INF 13:04
PROVIDERS: PCP Internal Medicine; Visit Provider Physician Assistant
DX: E83.42 Hypomagnesemia (principal)
CPT/HCPCS: 80048; 83735; 96365; J3475

== ENCOUNTER → 2023-08-24 10:07 | Outpatient (CLI) | payer OTHER, SELFPAY ==
--- NOTE | 2023-08-24 10:08 | CA_ITS ---
FINAL REPORT TECHNIQUE: Color Doppler, duplex Doppler and compression sonography of the right lower extremity venous system was performed. CLINICAL HISTORY: right leg pain, hx of dvt, pain and numbness for several weeks, smoker, ASA 81mg and Plavix qd COMPARISON: None FINDINGS: There is no evidence of deep venous thrombosis from the level of the groin to the calf. The veins are patent and compressible. IMPRESSION: No evidence of deep venous thrombosis right lower extremity. Reviewed, Interpreted and Dictated by Trent Morales III, MD Transcribed by Leah Fraser Authenticated and . [facility]
--- NOTE | 2023-08-24 10:35 | CA_ITS ---
APPROVED REPORT EXAM: Comprehensive 2D, Doppler, and color-flow Echocardiogram Ceramic Research Engineer: Eda Solis CRT Ht: 5 ft 9 in Wt: 270lbs BSA: 2.35 BP: 138/96 mmHg Indications: Chest Pain, Congestive Heart Failure, Shortness of Breath, Peripheral Edema, CAD, Hyperlipidemia, Cardiomyopathy, Hypertension/HDD, EF 40-45% on echo 09/22/22 2D Dimensions LVOT 2.05 cm (M/F) 1.5-2.5 M-Mode Dimensions RVDd 3.71 cm (0.9-2.6) LA Diam 4.28 cm (1.9-4.0) LVDd 5.31 cm (3.5-5.7) Ao Diam 3.90 cm (2.0-3.7) LVDs 4.28 cm (3.5-5.7) IVSd 1.43 cm (0.6-1.1) PWd 0.88 cm (0.6-1.1) EF (Teich) 39.50% FS 19.40% EDV (Teich) 135.90 mL TAPSE 2.39 (<1.7) ESV (Teich) 82.20 mL LV Diastology E Decel Time 157.00 (160-240 msec) E/A Ratio 3.44 MED E' 6.80 (< 7 cm/sec) MED A' 5.70 cm/s E'/MED E' Ratio 12.88 (>14) LAT E' 6.10 (<10 cm/sec) LAT A' 2.90 cm/s E/LAT E' Ratio 14.36 (>14) Aortic Valve AO Peak GR. 4.80 mmHg Mitral Valve MV A Velocity 25.00 (40-130 cm/s) E/A Ratio 3.44 MV Decel. Time 157.00 (160-240 ms) Pulmonary Valve PV Peak Velocity 115.00 (50-150 cm/s) Tricuspid Valve TR P. Velocity 323.00 cm/s RAP Estimate 10.00 mmHg RVSP 51.70 mmHg Left Ventricle The left ventricle is normal size. The left ventricular systolic function is mildly to moderately reduced. There is normal left ventricular wall thickness. There is severe hypokinesis of the inferior, inferolateral, and inferoseptal LV dash. Grade 2 diastolic dysfunction is present. LVEF is 40%. Right Ventricle The right ventricle is mildly dilated. Right ventricle is mildly hypokinetic. Atria The left atrium is mildly dilated. The right atrium is mildly dilated. There is no Doppler evidence of interatrial shunt. Aortic Valve The aortic valve opens well. There is no aortic valvular stenosis. No aortic regurgitation is present. Mitral Valve The mitral valve is normal in structure. No evidence of mitral valve stenosis. Trace mitral regurgitation. Tricuspid Valve The tricuspid valve leaflets are thin and pliable. Mild tricuspid regurgitation. RVSP is 40-45 mmHg. Pulmonic Valve The pulmonary valve is normal in structure. Trace pulmonic regurgitation. Great Vessels The aortic root is normal in size. The ascending aorta is normal in size. IVC is normal in size and collapses >50% with inspiration. Pericardium There is no pericardial effusion. Other Information Study Quality: Fair Conclusion Mild to moderate reduction in LV systolic function (LVEF 40%). Grade 2 diastolic dysfunction. Mildly dilated RV with mild reduction in RV systolic function. Mild TR. Elevated RVSP 40-45 mmHg. Compared to prior study from 2021, the LVEF is overall unchanged. Electronically signed by : Surekha Clements MD 08/25/2023 14:30:39
== END ==
PROVIDERS: PCP Internal Medicine; Visit Provider Nurse Practitioner
DX: M79.604 Pain in right leg (principal); Z86.718 Personal history of other venous thrombosis and embolism; I11.0 Hypertensive heart disease with heart failure; I50.9 Heart failure, unspecified; Z98.61 Coronary angioplasty status; E78.5 Hyperlipidemia, unspecified; E11.9 Type 2 diabetes mellitus without complications; F17.200 Nicotine dependence, unspecified, uncomplicated; Z79.84 Long term (current) use of oral hypoglycemic drugs
CPT/HCPCS: 93306; 93971

== ENCOUNTER → 2023-08-31 14:29 | Outpatient (CLI) | payer OTHER, SELFPAY ==
[2023-08-31 12:38] LABS: Basophils # 0.1 K/mm3 (0-0.2); Basophils % 0.5 % (0.1-2.0); Eosinophils # 0.2 K/mm3 (0.0-0.4); Eosinophils % 1.8 % (0.1-12.0); Hematocrit 49.1 % (42.0-52.0); Hemoglobin 16.1 g/dL (14.1-18.0); Lymphocytes # 2.1 K/mm3 (0.7-4.5); Lymphocytes % 22.5 % (10-50); Mean Corpuscular HGB Conc 32.9 g/dL (31.8-35.4); Mean Corpuscular Hemoglobin 30.9 pg (27.0-31.2); Mean Corpuscular Volume 93.9 fl (80-94); Mean Platelet Volume 7.8 fl (7.4-10.4); Monocytes # 0.7 K/mm3 (0.1-1.0); Monocytes % 7.2 % (1.7-9.3); Neutrophils # 6.2 K/mm3 (1.8-7.8); Platelet Count 326 K/mm3 (142-424); Red Blood Count 5.23 M/mm3 (4.60-6.20); Red Cell Distribution Width 18.8 % (11.5-17.5); White Blood Count 9.2 K/mm3 (4.8-10.8)
[2023-08-31 13:27] LABS: Chloride 101 mmol/L (98-107); Potassium 5.2 mmoL/L (3.5-5.1); Sodium 133 mmol/L (136-145)
[2023-08-31 13:30] LABS: Alanine Aminotransferase 25 U/L (12-78); Albumin Level 4.4 g/dl (3.5-5.0); Albumin/Globulin Ratio 1.4 (1.1-1.8); Alkaline Phosphatase 112 U/L (38-126); Anion Gap 14.2 mEq/L (5-15); Aspartate Amino Transferase 32 U/L (17-59); Bilirubin,Total 0.7 mg/dl (0.2-1.3); Blood Urea Nitrogen 32 mg/dl (9-20); Calcium 9.1 mg/dl (8.4-10.2); Carbon Dioxide 23 mmol/L (22.0-30.0); Chol/HDL Ratio 3.7 (1-3.5); Cholesterol 203 mg/dl (140-200); Estimated Glomerular Filt Rate 52 ml/min (>60); GFR (African American) 63 ML/MIN (>60); Globulin 3.2 g/dL (1.3-3.2); Glucose 143 mg/dl (74-100); HDL Cholesterol 55 mg/dl (40-60); Total Protein,Serum 7.6 g/dl (6.3-8.2); Triglycerides 94 mg/dl (30-150); VLDL Cholesterol 19 mg/dL (0-40)
[2023-08-31 13:54] LABS: Direct LDL Cholesterol 125.91 mg/dL (100-129)
[2023-08-31 14:00] LABS: Free T4 (Free Thyroxine) 1.38 ng/dl (0.78-2.19)
[2023-08-31 14:07] LABS: Thyroid Stimulating Hormone 3.17 uIU/mL (0.465-4.68)
[2023-08-31 14:35] LABS: Hemoglobin A1C 6.2 % (4.0-6.0)
[2023-08-31 15:42] LABS: 25-OH Vitamin D, Total 52.5 ng/mL (30-100)
== END ==
PROVIDERS: PCP Internal Medicine; Visit Provider Internal Medicine
DX: Z00.00 Encounter for general adult medical examination without abnormal findings (principal); Z13.21 Encounter for screening for nutritional disorder; Z13.1 Encounter for screening for diabetes mellitus; Z13.29 Encounter for screening for other suspected endocrine disorder; Z13.220 Encounter for screening for lipoid disorders; Z68.41 Body mass index [BMI] 40.0-44.9, adult
CPT/HCPCS: 36415; 80053; 80061; 82306; 83036; 84439; 84443; 85025

== ENCOUNTER 2023-09-20 12:32 | Outpatient (CLI) | payer OTHER, SELFPAY ==
[2023-09-20 12:36] VITALS: BMI 40.3
[2023-09-20 13:00] VITALS: BP 154/75; PULSE 69; RESP 18; O2SAT 97
[2023-09-20 13:05] LABS: Anion Gap 11.3 mEq/L (5-15); Blood Urea Nitrogen 30 mg/dl (9-20); Calcium 8.8 mg/dl (8.4-10.2); Carbon Dioxide 28 mmol/L (22.0-30.0); Chloride 99 mmol/L (98-107); Creatinine Clearance Estimated 84 mL/min (50-200); Estimated Glomerular Filt Rate 42 ml/min (>60); GFR (African American) 51 ML/MIN (>60); Glucose 169 mg/dl (74-100); Magnesium 1.2 mg/dl (1.6-2.3); Potassium 4.3 mmoL/L (3.5-5.1); Sodium 134 mmol/L (136-145)
[2023-09-20 14:06] VITALS: BP 100/66; PULSE 70; RESP 18; O2SAT 97
== END 2023-09-20 14:06 | disposition home or self-care (01) ==
LOC: INF 12:32
PROVIDERS: PCP Internal Medicine; Visit Provider Physician Assistant
DX: E83.42 Hypomagnesemia (principal)
CPT/HCPCS: 80048; 83735; 96365; J3475

== ENCOUNTER 2023-11-08 12:18 | Outpatient (CLI) | payer OTHER, SELFPAY ==
[2023-11-08 12:20] VITALS: BMI 40.7
[2023-11-08 12:36] VITALS: BP 159/94; PULSE 79; RESP 18; O2SAT 97
[2023-11-08] MEDS: 0.9 % SODIUM CHLORIDE 50 ML IV (12:36)
[2023-11-08] MEDS: MAGNESIUM SULFATE IN WATER 2 GM/50 ML PIGGYBACK IV (12:36)
[2023-11-08 12:53] LABS: Anion Gap 7.4 mEq/L (5-15); Blood Urea Nitrogen 27 mg/dl (9-20); Calcium 8.7 mg/dl (8.4-10.2); Carbon Dioxide 25 mmol/L (22.0-30.0); Chloride 105 mmol/L (98-107); Creatinine Clearance Estimated 103 mL/min (50-200); Estimated Glomerular Filt Rate 52 ml/min (>60); GFR (African American) 63 ML/MIN (>60); Glucose 132 mg/dl (74-100); Magnesium 1.2 mg/dl (1.6-2.3); Potassium 4.4 mmoL/L (3.5-5.1); Sodium 133 mmol/L (136-145)
[2023-11-08 14:03] VITALS: BP 148/89; PULSE 76; RESP 19; O2SAT 97
== END 2023-11-08 23:59 ==
LOC: INF 12:18
PROVIDERS: PCP Internal Medicine; Visit Provider Physician Assistant
DX: E83.42 Hypomagnesemia (principal)
CPT/HCPCS: 80048; 83735; 96365; J3475

== ENCOUNTER 2023-12-10 03:00 | Emergency (ER) | payer OTHER, SELFPAY ==
[2023-12-10 03:15] VITALS: BP 161/93; PULSE 86; RESP 16; TEMP 37.1; O2SAT 98; BMI 39.9
--- NOTE | 2023-12-10 03:15 | XR_ITS ---
PROCEDURE INFORMATION: Exam: XR Left Knee Exam date and time: 12/10/2023 3:27 AM Age: 58 years old Clinical indication: Pain; Knee; Left; Additional info: Pain, swelling, effusion TECHNIQUE: Imaging protocol: Radiologic exam of the left knee. Views: 3 views. COMPARISON: CR [id number] XR knee LT 3V 05/11/2018 10:00 PM FINDINGS: Bones/joints: No acute fracture. Intramedullary nail with distal interlocking screws within femur. Healed fracture deformity of femoral diaphysis. No dislocation. Small joint effusion. Soft tissues: Unremarkable. IMPRESSION: Small joint effusion, nonspecific. Clinical correlation is needed.
--- NOTE | 2023-12-10 03:27 | HMH.EDGENADL ---
Discharge Plan Disposition Patient Disposition: Xfer Short-Term Hosp Prescriptions Prescriptions: No Action docusate sodium [Colace] 100 mg capsule 100 mg PO DAILY PRN (Reason: bowels) hydroxyzine pamoate 50 mg capsule 50 mg PO BID PRN (Reason: itching) Qty: 30 1RF triamcinolone acetonide 0.1 % cream 1 applic topical QID PRN (Reason: itching) Qty: 454 0RF torsemide 100 mg tablet 50 mg PO DAILY PRN (Reason: Fluid) spironolactone 25 mg tablet 25 mg PO DAILY Qty: 90 3RF capsaicin 0.1 % cream 1 applic topical BID PRN (Reason: joint pain) Rx Instructions: do not wash area for at least 30 min after application pimecrolimus [Elidel] 1 % cream 1 applic topical DAILYP PRN (Reason: eczema) Xarelto 15 mg tablet 15 mg PO DAILY Qty: 30 5RF Rx Instructions: must administer with evening meal nitroglycerin 0.4 mg tablet, sublingual 0.4 mg SL NEEDED PRN (Reason: Chest Pain) Qty: 25 3RF Rx Instructions: DISSOLVE 1 TABLET UNDER THE TONGUE EVERY 5 TO 15 MINUTES NEEDED FOR CHEST PAIN. IF NO RELIEF AFTER 3 DOSES CALL 911 polyethylene glycol 3350 17 gram/dose powder See Rx Instructions .ROUTE .COMPLEX Qty: 238 0RF Dose Instruction: MIX 1 CAPFUL (17GM) IN AN 8OZ BEVERAGE AND DRINK EVERY DAY Rx Instructions: MIX 1 CAPFUL (17GM) IN AN 8OZ BEVERAGE AND DRINK EVERY DAY lorazepam 1 mg tablet 1 mg PO ONCE PRN (Reason: anxiety) Qty: 2 0RF Rx Instructions: Take one (1) tablet 1 hour prior to their MRI appointment. Bring the 2nd tablet to the MRI appointment, and if still anxious immediately prior to going into the MRI scanner may take the 2nd tablet. Ensure you have a concrete mixing truck driver to assist in getting to and from your appointment if taking the medication. Inform the team administering the test that you have been given medication for anxiety. famotidine 40 mg tablet See Rx Instructions .ROUTE .COMPLEX Qty: 60 3RF Dose Instruction: TAKE ONE TABLET BY MOUTH 2 TIMES A DAY FOR ACID REFLUX Rx Instructions: TAKE ONE TABLET BY MOUTH 2 TIMES A DAY FOR ACID REFLUX sennosides [senna] 8.6 mg tablet See Rx Instructions .ROUTE .COMPLEX Qty: 30 1RF Dose Instruction: TAKE ONE TABLET BY MOUTH AT BEDTIME NEEDED FOR CONSTIPATION Rx Instructions: TAKE ONE TABLET BY MOUTH AT BEDTIME NEEDED FOR CONSTIPATION budesonide-formoterol [Symbicort] 160-4.5 mcg/actuation HFA aerosol inhaler See Rx Instructions .ROUTE .COMPLEX Qty: 10.2 1RF Dose Instruction: INHALE 2 PUFFS BY MOUTH 2 TIMES A DAY FOR SHORTNESS OF BREATH Rx Instructions: INHALE 2 PUFFS BY MOUTH 2 TIMES A DAY FOR SHORTNESS OF BREATH pantoprazole 40 mg tablet,delayed release (DR/EC) See Rx Instructions .ROUTE .COMPLEX Qty: 90 1RF Dose Instruction: TAKE ONE TABLET BY MOUTH ONCE A DAY FOR ACID REFLUX Rx Instructions: TAKE ONE TABLET BY MOUTH ONCE A DAY FOR ACID REFLUX bisoprolol fumarate 10 mg tablet 10 mg PO DAILY Qty: 90 1RF clopidogrel 75 mg tablet 75 mg PO DAILY Qty: 90 1RF Ozempic 0.25 mg or 0.5 mg (2 mg/3 mL) pen injector See Rx Instructions .ROUTE .COMPLEX Qty: 3 1RF Dose Instruction: INJECT 0.25 MG SUBCUTANEOUSLY ONCE A WEEK FOR 4 WEEKS Rx Instructions: INJECT 0.25 MG SUBCUTANEOUSLY ONCE A WEEK FOR 4 WEEKS glipizide 10 mg tablet See Rx Instructions .ROUTE .COMPLEX Qty: 60 0RF Dose Instruction: TAKE ONE TABLET BY MOUTH 2 TIMES A DAY FOR DIABETES Rx Instructions: TAKE ONE TABLET BY MOUTH 2 TIMES A DAY FOR DIABETES levothyroxine 50 mcg tablet See Rx Instructions .ROUTE .COMPLEX Qty: 30 0RF Dose Instruction: TAKE ONE TABLET BY MOUTH ONCE A DAY FOR THYROID Rx Instructions: TAKE ONE TABLET BY MOUTH ONCE A DAY FOR THYROID Linzess 145 mcg capsule See Rx Instructions .ROUTE .COMPLEX Qty: 30 0RF Dose Instruction: TAKE ONE CAPSULE BY MOUTH ONCE A DAY . Rx Instructions: TAKE ONE CAPSULE BY MOUTH ONCE A DAY . albuterol sulfate [ProAir HFA] 90 mcg/actuation HFA aerosol inhaler 1 - 2 puff inhalation Q4HP PRN (Reason: asthma) Rx Instructions: INHALE 2 PUFFS BY MOUTH EVERY 4 TO 6 HOURS NEEDED SHORTNESS OF BREATH OR WHEEZING fluticasone propionate 50 mcg/actuation spray,suspension 1 spray intranasal DAILY PRN (Reason: allergies) Rx Instructions: USE 1 SPRAY INEACH NOSTRIL ONCE A DAY FOR ALLERGIES magnesium sulfate 4 mEq/mL (50 %) solution 2 g IV WEEKLY (DME) blood-glucose meter Misc See Rx Instructions .ROUTE .MEDSUPPLY Rx Instructions: As directed (DME) OneTouch Verio test strips Strip See Rx Instructions .ROUTE .MEDSUPPLY Rx Instructions: Check Glucose 4 times daily ammonium lactate 12 % cream 1 applic topical DAILY colchicine 0.6 mg tablet 0.6 mg PO DAILY (DME) lancets 33 gauge misc See Rx Instructions .ROUTE .MEDSUPPLY Rx Instructions: Check Glucose 4 times daily loratadine 10 mg tablet 10 mg PO DAILY PRN (Reason: allergies) Referrals Follow up/Referrals: Mingo Weiss DO [Primary Care Provider] - See instructions Clinical Impressions Clinical Impression: Left knee pain, Effusion of left knee Discharge ED Provider: Linda Perez General Adult HPI General Chief complaint: Extremity Injury, Lower Stated complaint: Left Knee swollen,red,hot to touch Time Seen by Provider: 12/10/23 03:11 Mode of Arrival: Ambulatory Source of Information: Patient Limitations: Physical Limitations Description of Symptoms (Recalled from ER Triage Doc. by RN): 58 y/o male presents to ED for L knee pain/swelling. Pt states this started 2 days ago and he's tried meds, heat, and ice with no relief. Pt states this happened to his R knee as well and it had to be drained. History of Present Illness HPI narrative: This patient is a 58-year-old male with a history of recurrent gouty arthritis, diabetes, hypertension, hyperlipidemia, obesity, CAD, COPD, patient is more atrial fibrillation, and history of DVT presenting to the emergency department for evaluation with concern for left knee pain, redness, and swelling. He states that this started 2 days ago. Feels the same as prior gout flares, but he has never had gout in this knee before. He has tried taking his colchicine as well as using heat and ice without improvement. 7 to his right knee, which he states had to be drained. He states this was done in clinic by orthopedics. He came in tonight hoping that we could drain his knee to give him some relief from the pressure from the fluid that is built up in his left knee. No recent trauma noted. No fevers, chills, or infectious symptoms. He states that he did have a joint infection approximately 20 years ago. Related Data Home Medications Medication Instructions Recorded Confirmed magnesium sulfate 500 mg/mL (50 %) 2 g IV WEEKLY Supplement 09/21/22 10/15/23 injection solution albuterol sulfate 90 mcg/actuation 1 - 2 puff inhalation Q4HP PRN 10/22/22 10/15/23 aerosol inhaler (ProAir HFA) asthma fluticasone propionate 50 1 spray intranasal DAILY PRN 12/28/22 10/15/23 mcg/actuation nasal allergies spray,suspension ammonium lactate 12 % topical cream 1 applic topical DAILY . 06/03/23 10/15/23 blood sugar diagnostic (OneTouch 06/03/23 10/15/23 Verio test strips) blood-glucose meter 06/03/23 10/15/23 colchicine 0.6 mg tablet 0.6 mg PO DAILY gout 06/03/23 10/15/23 lancets 33 gauge 06/03/23 10/15/23 capsaicin 0.1 % topical cream 1 applic topical BID PRN joint pain 06/17/23 10/15/23 docusate sodium 100 mg capsule 100 mg PO DAILY PRN bowels 06/17/23 10/15/23 (Colace) loratadine 10 mg tablet 10 mg PO DAILY PRN allergies 06/17/23 10/15/23 pimecrolimus 1 % topical cream 1 applic topical DAILYP PRN eczema 06/17/23 10/15/23 (Elidel) torsemide 100 mg tablet 50 mg PO DAILY PRN Fluid 08/17/23 10/15/23 Previous Rx's Medication Instructions Recorded hydroxyzine pamoate 50 mg capsule 50 mg PO BID PRN itching #30 caps 04/05/23 triamcinolone acetonide 0.1 % 1 applic topical QID PRN itching 04/05/23 topical cream #454 grams spironolactone 25 mg tablet 25 mg PO DAILY Fluid #90 tabs 08/17/23 rivaroxaban 15 mg tablet (Xarelto) 15 mg PO DAILY #30 tabs 08/31/23 nitroglycerin 0.4 mg sublingual 0.4 mg sublingual NEEDED PRN 09/14/23 tablet Chest Pain #25 tabs polyethylene glycol 3350 17 See Rx Instructions .Route 09/14/23 gram/dose oral powder .COMPLEX #238 grams lorazepam 1 mg tablet 1 mg PO ONCE PRN anxiety #2 tabs 11/15/23 famotidine 40 mg tablet See Rx Instructions .Route 09/22/23 .COMPLEX #60 tabs sennosides 8.6 mg tablet (senna) See Rx Instructions .Route 10/06/23 .COMPLEX #30 tabs budesonide-formoterol HFA 160 See Rx Instructions .Route 10/18/23 mcg-4.5 mcg/actuation aerosol .COMPLEX #10.2 grams inhaler (Symbicort) pantoprazole 40 mg tablet,delayed See Rx Instructions .Route 10/18/23 release .COMPLEX #90 tabs bisoprolol fumarate 10 mg tablet 10 mg PO DAILY #90 tabs 10/19/23 clopidogrel 75 mg tablet 75 mg PO DAILY antiplatelet #90 10/19/23 tabs semaglutide 0.25 mg or 0.5 mg (2 See Rx Instructions .Route 10/22/23 mg/3 mL) subcutaneous pen injector .COMPLEX #3 mL (Ozempic) glipizide 10 mg tablet See Rx Instructions .Route 12/09/23 .COMPLEX #60 tabs levothyroxine 50 mcg tablet See Rx Instructions .Route 12/09/23 .COMPLEX #30 tabs linaclotide 145 mcg capsule See Rx Instructions .Route 12/09/23 (Linzess) .COMPLEX #30 caps Allergies Allergy/AdvReac Type Severity Reaction Status Date / Time No Known Allergies Allergy Verified 10/15/23 13:58 [facility] Disclaimer: The information contained in this section may have been updated after the patient was seen, as this information can be updated by other users. Medical History Acute on chronic heart failure Anxiety and depression Atypical angina Bakers cyst Bronchitis CAD (coronary artery disease) Cardiomyopathy CHF (congestive heart failure) CHF (congestive heart failure) CKD (chronic kidney disease) Cough Diabetes mellitus DVT (deep venous thrombosis) Dyspnea Edema Epididymitis Femur fracture GERD (gastroesophageal reflux disease) Glaucoma Gout of right knee History of sinus problem HLD (hyperlipidemia) HTN (hypertension) Hyperlipidemia associated with type 2 diabetes mellitus Hypocalcemia Hypomagnesemia Hypothyroidism Myocardial infarct Otitis media, left Pain around toenail, left foot PTSD (post-traumatic stress disorder) 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 Renal insufficiency Scrotal edema Scrotal swelling Type 2 diabetes mellitus with complication, without long-term current use of insulin Typical angina Surgical History History of cholecystectomy History of heart artery stent S/P drug eluting coronary stent placement S/P ORIF (open reduction internal fixation) fracture Family History Other Family history of cancer Family history of diabetes mellitus type II Family history of hypertension Social History Smoking Status: Current every day smoker tobacco type: cigarettes packs per day: 1 second hand exposure: No alcohol intake: current substance use type: former substance user and marijuana current occupational status: disabled Travel in the last 8 weeks: None household members: none housing: apartment lives independently: Yes marital status: single education level: high school service: No jail: No current occupational exposures/hazards: No caffeine: Yes special veronica needs: No agree to transfusion: No do you feel safe at home: Yes victim of physical abuse: No victim of emotional abuse: No victim of sexual abuse: No would you like helpful sources: No ROS Obtained: Yes All systems reviewed & no additional complaints except as documented Physical Exam General General appearance: alert and in no apparent distress Head Head exam: atraumatic and normocephalic Eye Eye exam: Present normal appearance, PERRL and EOMI ENT ENT exam: Present normal exam, normal oropharynx, mucous membranes moist and normal external ear exam Neck Neck exam: Present normal inspection, full ROM and trachea midline; Absent tenderness Chest Chest inspection: Present normal inspection and symmetric chest wall rise; Absent tenderness Respiratory Respiratory exam: Present normal lung sounds bilaterally; Absent respiratory distress, wheezes, stridor or accessory muscle use Cardiovascular Cardiovascular exam: Present regular rate and normal rhythm Abdominal Exam Abdominal exam: Present soft; Absent distention, tenderness or guarding Extremities Exam Extremities exam: Present full ROM, tenderness, normal capillary refill and joint swelling; Absent edema Expanded Lower Extremity Exam Left: Knee exam: Present tenderness, swelling, erythema and effusion; Absent full ROM (Limited active and passive range of motion secondary to pain), abrasion, laceration, ecchymosis, deformity or crepitus Comment: All compartments soft, neurovascularly intact distally Back Exam Back exam: Present normal inspection and full ROM; Absent tenderness Neurological Exam Neurological exam: Present alert, oriented X3, CN II-XII intact and normal gait; Absent motor sensory deficit Psychiatric Psychiatric exam: Present normal affect and normal mood Skin Skin exam: Present warm and dry Medical Decision Making Medical Records Medical records reviewed: Yes I reviewed the patient's medical records. Uziel Inquiry Pt receiving controlled substance: No Vital Signs: 12/10/23 03:15 12/10/23 03:30 Temperature 98.7 F Temperature Source Oral Pulse Rate 73 Pulse Rate [Left] 86 Respiratory Rate 16 Blood Pressure 162/98 H Blood Pressure [Right Arm] 161/93 H Blood Pressure Mean 119 Blood Pressure Mean [Right Arm] 115 Blood Pressure Source [Right Arm] Automatic Cuff Blood Pressure Position [Right Arm] Sitting 02 Sat by Pulse Oximetry 98 93 L Oxygen Delivery Method Room Air Room Air Lab Data Lab results reviewed: Yes I reviewed the patient's lab results. Lab Results 12/10/23 03:40: WBC 11.1 H, RBC 5.51, Hgb 17.3, Hct 53.2 H, MCV 96.6 H, MCH 31.4 H, MCHC 32.5, RDW 16.0, Plt Count 332, MPV 7.8, Neut % (Auto) 70.7, Lymph % (Auto) 19.9, [place] % (Auto) 7.1, Eos % (Auto) 1.9, Baso % (Auto) 0.4, Neut # (Auto) 7.8, Lymph # (Auto) 2.2, [place] # (Auto) 0.8, Eos # (Auto) 0.2, Baso # (Auto) 0.0, ESR 6, Sodium 135 L, Potassium 4.6, Chloride 103, Carbon Dioxide 22, Anion Gap 14.6, BUN 22 H, Creatinine 1.40 H, Estimated Creat Clear 101, Estimated GFR 52 L, Est GFR ( Amer) 63, Glucose 189 H, Calcium 9.3, Total Bilirubin 0.7, AST 28, ALT 19, Alkaline Phosphatase 102, C-Reactive Protein 52.4 H, Total Protein 7.9, Albumin 4.4, Globulin 3.5 H, Albumin/Globulin Ratio 1.3 12/10/23 03:40 12/10/23 03:40 Orders (Tests/Meds): ED MEDICATIONS Discontinued Medications Generic Name Dose Route Start Last Admin Trade Name Freq PRN Reason Stop Dose Admin Acetaminophen 1,000 mg 02/09/24 03:20 12/10/23 03:43 Acetaminophen 500mg Tab PO 12/10/23 03:21 1,000 mg ONCE ONE Administration Ketorolac Tromethamine 30 mg 12/10/23 03:20 12/10/23 03:44 Ketorolac 30mg/Ml Vial IV 12/10/23 03:21 30 mg ONCE ONE Administration Oxycodone HCl 5 mg 12/10/23 03:21 12/10/23 03:44 Oxycodone 5mg Immediate Release Tablet PO 12/10/23 03:22 5 mg ONCE ONE Administration ORDERS Category Date Time Status XR knee LT 3V Stat Exams 12/10/23 03:15 Completed C-Reactive Protein Stat Lab 12/10/23 03:40 Completed Complete Blood Count Auto Diff Stat Lab 12/10/23 03:40 Completed Comprehensive Metabolic Panel Stat Lab 12/10/23 03:40 Completed Erythrocyte Sedimentation Rate Stat Lab 12/10/23 03:40 Completed Medical Decision Narrative: In summary, this patient is a 58-year-old male presenting to the Emergency Department for evaluation of atraumatic left knee pain that feels similar to prior gout flares. Differential diagnoses considered include but are not limited to gouty arthritis, septic arthritis, osteoarthritis, trauma, cellulitis. Ruling out the most morbid conditions drove assessment. On exam, the patient has an erythematous warm left knee with pain with active and passive range of motion. No overlying wounds. No obvious deformity. Neurovascularly intact distally. No red streaking away from the left knee joint. Patient states that this feels the same as all of his prior gouty flares, but he has never had it in his left knee. He does have a history of septic arthritis around 20 years ago. He is requesting to have his knee joint aspirated, as he states that having the fluid drained significantly provide some relief. Workup included CBC, CMP, ESR, CRP, and x-rays of the left knee. He was given oral Tylenol and IV Toradol for symptomatic improvement. On lab evaluation, patient has elevated CRP of >50 and a very mild leukocytosis of 11. I independently interpreted x-ray prior to the radiologist read and noted no acute fracture or obvious bony destruction. Please see their read for final interpretation. Given the findings of elevated inflammatory markers, cannot definitively exclude septic arthritis without a joint aspiration even though the patient does have a known history of gout. Unfortunately, we do not have the ability to send testing for this here. Given this, I feel he would benefit from transfer to higher level of care with capability to do a joint aspiration. I had a discussion with the patient regarding this, and he expressed understanding and agreement. I had an interactive discussion with Dr. Bertrand at [place] who accepted the patient for transfer - ER to ER. Advised patient we would transport him, as I feel it is safest given his knee pain/limited ROM, but he would like to go POV. He is requesting more pain medications, which I advised I would not give him if he is not allowing us to arrange transport. I advised he not drive after receiving narcotics. Patient demonstrates capacity and was given information to proceed directly to [place] ED. He expressed understanding and agreement after being notified of the risks should he not seek evaluation there right away. He left in stable condition. Critical Care Critical Care Time Critical Care Time: No
[2023-12-10 03:30] VITALS: BP 162/98; PULSE 73; O2SAT 93
[2023-12-10] MEDS: ACETAMINOPHEN 500MG TAB 1000 MG PO (03:43)
[2023-12-10] MEDS: OXYCODONE 5MG IMMEDIATE RELEASE TABLET 5 MG PO (03:44)
[2023-12-10] MEDS: KETOROLAC 30MG/ML VIAL 30 MG IV (03:44)
[2023-12-10 03:48] LABS: Basophils % 0.4 % (0.1-2.0); Eosinophils # 0.2 K/mm3 (0.0-0.4); Eosinophils % 1.9 % (0.1-12.0); Hematocrit 53.2 % (42.0-52.0); Hemoglobin 17.3 g/dL (14.1-18.0); Lymphocytes # 2.2 K/mm3 (0.7-4.5); Lymphocytes % 19.9 % (10-50); Mean Corpuscular HGB Conc 32.5 g/dL (31.8-35.4); Mean Corpuscular Hemoglobin 31.4 pg (27.0-31.2); Mean Corpuscular Volume 96.6 fl (80-94); Mean Platelet Volume 7.8 fl (7.4-10.4); Monocytes # 0.8 K/mm3 (0.1-1.0); Monocytes % 7.1 % (1.7-9.3); Neutrophils # 7.8 K/mm3 (1.8-7.8); Neutrophils % 70.7 % (37.0-80.0); Platelet Count 332 K/mm3 (142-424); Red Blood Count 5.51 M/mm3 (4.60-6.20); White Blood Count 11.1 K/mm3 (4.8-10.8)
[2023-12-10 03:55] LABS: Alanine Aminotransferase 19 U/L (12-78); Albumin Level 4.4 g/dl (3.5-5.0); Albumin/Globulin Ratio 1.3 (1.1-1.8); Alkaline Phosphatase 102 U/L (38-126); Anion Gap 14.6 mEq/L (5-15); Aspartate Amino Transferase 28 U/L (17-59); Bilirubin,Total 0.7 mg/dl (0.2-1.3); Blood Urea Nitrogen 22 mg/dl (9-20); Calcium 9.3 mg/dl (8.4-10.2); Carbon Dioxide 22 mmol/L (22.0-30.0); Chloride 103 mmol/L (98-107); Creatinine Clearance Estimated 101 mL/min (50-200); Estimated Glomerular Filt Rate 52 ml/min (>60); GFR (African American) 63 ML/MIN (>60); Globulin 3.5 g/dL (1.3-3.2); Glucose 189 mg/dl (74-100); Potassium 4.6 mmoL/L (3.5-5.1); Sodium 135 mmol/L (136-145); Total Protein,Serum 7.9 g/dl (6.3-8.2)
[2023-12-10 04:00] VITALS: BP 152/96; PULSE 65; O2SAT 95
[2023-12-10 04:01] LABS: C-Reactive Protein 52.4 mg/L (0-4)
[2023-12-10 04:18] LABS: Erythrocyte Sedimentation Rate 6 mm/hr (0-20)
--- NOTE | 2023-12-10 04:27 | PC.NURSE ---
Contacted [facility] Transfer [place] over a transfer for this patient for a septic knee rule out, also patient has an elevated ESR and CRP along with mild lukocytosis
[2023-12-10 04:30] VITALS: BP 137/89
--- NOTE | 2023-12-10 04:53 | PC.NURSE ---
Contacted EMS for transfer
[2023-12-10 05:00] VITALS: BP 139/94; PULSE 68; O2SAT 96
[2023-12-10 05:34] VITALS: BP 105/68; PULSE 67; RESP 20; TEMP 36.8
== END 2023-12-10 05:37 | disposition short-term general hospital (02) ==
PROVIDERS: Emergency Provider Emergency Medicine; PCP Internal Medicine
DX: M25.462 Effusion, left knee (principal); E11.22 Type 2 diabetes mellitus with diabetic chronic kidney disease; D72.829 Elevated white blood cell count, unspecified; I13.0 Hypertensive heart and chronic kidney disease with heart failure and stage 1 through stage 4 chronic kidney disease, or unspecified chronic kidney disease; E78.5 Hyperlipidemia, unspecified; I25.118 Atherosclerotic heart disease of native coronary artery with other forms of angina pectoris; J44.9 Chronic obstructive pulmonary disease, unspecified; I48.91 Unspecified atrial fibrillation; I50.89 Other heart failure; I42.9 Cardiomyopathy, unspecified; N18.9 Chronic kidney disease, unspecified; K21.9 Gastro-esophageal reflux disease without esophagitis; E03.9 Hypothyroidism, unspecified; I25.2 Old myocardial infarction; F17.210 Nicotine dependence, cigarettes, uncomplicated
CPT/HCPCS: 73562; 80053; 85025; 85651; 86140; 96374; 99285

== ENCOUNTER 2023-12-20 12:02 | Outpatient (CLI) | payer OTHER, SELFPAY ==
[2023-12-20 12:05] VITALS: BMI 40.7
[2023-12-20 12:40] VITALS: BP 126/76; PULSE 65; RESP 18; O2SAT 97
[2023-12-20] MEDS: MAGNESIUM SULFATE IN WATER 2 GM/50 ML PIGGYBACK IV (12:40)
[2023-12-20 12:42] LABS: Chloride 105 mmol/L (98-107); Sodium 135 mmol/L (136-145)
[2023-12-20 12:43] LABS: Potassium 4.3 mmoL/L (3.5-5.1)
[2023-12-20 12:45] LABS: Anion Gap 5.3 mEq/L (5-15); Blood Urea Nitrogen 24 mg/dl (9-20); Calcium 8.5 mg/dl (8.4-10.2); Carbon Dioxide 29 mmol/L (22.0-30.0); Creatinine Clearance Estimated 96 mL/min (50-200); Estimated Glomerular Filt Rate 48 ml/min (>60); GFR (African American) 58 ML/MIN (>60); Glucose 144 mg/dl (74-100)
[2023-12-20 12:46] LABS: Magnesium 1.2 mg/dl (1.6-2.3)
[2023-12-20] MEDS: 0.9 % SODIUM CHLORIDE 50 ML 100 ML IV (13:00)
[2023-12-20 13:49] VITALS: BP 135/81; PULSE 64; RESP 18; TEMP 36.7; O2SAT 97
== END 2023-12-20 13:50 | disposition home or self-care (01) ==
LOC: INF 12:03
PROVIDERS: PCP Internal Medicine; Visit Provider Physician Assistant
DX: E83.42 Hypomagnesemia (principal)
CPT/HCPCS: 80048; 83735; 96365; J3475

== ENCOUNTER 2024-01-04 16:10 | Outpatient (CLI) | payer OTHER, SELFPAY | END 2024-01-04 23:59 | LOC: RT 16:10 | PROVIDERS: PCP Internal Medicine; Visit Provider Physician Assistant | DX: I48.91 Unspecified atrial fibrillation (principal) | CPT/HCPCS: 93270 ==

== ENCOUNTER 2024-01-13 20:49 | Outpatient (CLI) | payer OTHER, SELFPAY ==
[2024-01-13 18:26] LABS: Basophils # 0.1 K/mm3 (0-0.2); Basophils % 0.6 % (0.1-2.0); Eosinophils # 0.2 K/mm3 (0.0-0.4); Eosinophils % 1.9 % (0.1-12.0); Hematocrit 49.8 % (42.0-52.0); Hemoglobin 15.4 g/dL (14.1-18.0); Lymphocytes # 2.1 K/mm3 (0.7-4.5); Lymphocytes % 21.4 % (10-50); Mean Corpuscular HGB Conc 30.9 g/dL (31.8-35.4); Mean Corpuscular Hemoglobin 30.6 pg (27.0-31.2); Mean Corpuscular Volume 99.3 fl (80-94); Mean Platelet Volume 8.6 fl (7.4-10.4); Monocytes # 0.7 K/mm3 (0.1-1.0); Monocytes % 6.8 % (1.7-9.3); Neutrophils # 6.8 K/mm3 (1.8-7.8); Neutrophils % 69.4 % (37.0-80.0); Platelet Count 288 K/mm3 (142-424); Red Blood Count 5.02 M/mm3 (4.60-6.20); Red Cell Distribution Width 15.5 % (11.5-17.5); White Blood Count 9.7 K/mm3 (4.8-10.8)
[2024-01-13 18:51] LABS: Alanine Aminotransferase 15 U/L (12-78); Albumin Level 4.1 g/dl (3.5-5.0); Alkaline Phosphatase 107 U/L (38-126); Anion Gap 16.5 mEq/L (5-15); Aspartate Amino Transferase 22 U/L (17-59); Bilirubin,Direct 0.4 mg/dl (0.0-0.4); Bilirubin,Indirect 0.3 mg/dL (0.0-0.9); Bilirubin,Total 0.7 mg/dl (0.2-1.3); Bilirubin,Unconjugated 0.3 mg/dL (0.0-1.1); Blood Urea Nitrogen 25 mg/dl (9-20); Calcium 8.4 mg/dl (8.4-10.2); Carbon Dioxide 22 mmol/L (22.0-30.0); Chloride 102 mmol/L (98-107); Chol/HDL Ratio 4.6 (1-3.5); Cholesterol 196 mg/dl (140-200); Estimated Glomerular Filt Rate 45 ml/min (>60); GFR (African American) 54 ML/MIN (>60); Glucose 90 mg/dl (74-100); HDL Cholesterol 43 mg/dl (40-60); Potassium 4.5 mmoL/L (3.5-5.1); Sodium 136 mmol/L (136-145); Total Protein,Serum 6.7 g/dl (6.3-8.2); Triglycerides 114 mg/dl (30-150); VLDL Cholesterol 23 mg/dL (0-40)
[2024-01-13 19:03] LABS: Direct LDL Cholesterol 121.35 mg/dL (100-129)
[2024-01-13 19:13] LABS: Free T4 (Free Thyroxine) 1.25 ng/dl (0.78-2.19)
[2024-01-13 19:24] LABS: Thyroid Stimulating Hormone 5.37 uIU/mL (0.465-4.68)
[2024-01-13 19:50] LABS: Hemoglobin A1C 6.8 % (4.0-6.0)
== END 2024-01-13 23:59 ==
LOC: LAB.DROPOF 20:49
PROVIDERS: Internal Medicine; PCP Physician Assistant; Visit Provider Physician Assistant
DX: I48.0 Paroxysmal atrial fibrillation (principal); I42.0 Dilated cardiomyopathy; I25.5 Ischemic cardiomyopathy; I25.10 Atherosclerotic heart disease of native coronary artery without angina pectoris; I50.20 Unspecified systolic (congestive) heart failure; I48.92 Unspecified atrial flutter; E83.42 Hypomagnesemia; E11.22 Type 2 diabetes mellitus with diabetic chronic kidney disease; N18.32 Chronic kidney disease, stage 3b; Z86.718 Personal history of other venous thrombosis and embolism; Z86.73 Personal history of transient ischemic attack (TIA), and cerebral infarction without residual deficits; Z79.84 Long term (current) use of oral hypoglycemic drugs; Z79.85 Long-term (current) use of injectable non-insulin antidiabetic drugs; Z87.891 Personal history of nicotine dependence
CPT/HCPCS: 80048; 80061; 80076; 83036; 83735; 84439; 84443; 85025

== ENCOUNTER 2024-02-06 13:21 | Emergency (ER) | payer OTHER, SELFPAY ==
[2024-02-06 13:27] VITALS: BP 190/126; PULSE 72; RESP 22; TEMP 36.9; O2SAT 96; BMI 40.0
--- NOTE | 2024-02-06 13:28 | PC.NURSE ---
dr reed at bedside
--- NOTE | 2024-02-06 13:33 | ED_ITS ---
Discharge Plan Disposition Patient Disposition: Home, Self-Care Chief Complaint: Epistaxis Prescriptions Prescriptions: No Action triamcinolone acetonide 0.1 % cream 1 applic topical QID PRN (Reason: itching) Qty: 454 0RF spironolactone 25 mg tablet 25 mg PO DAILY Qty: 90 3RF latanoprost 0.005 % drops 1 drp Eye-Both DAILY colchicine 0.6 mg tablet 0.6 mg PO DAILY Qty: 3 0RF Rx Instructions: take two tablets for initial dose, then 1 tablet one hour later amiodarone 200 mg tablet 200 mg PO BID Qty: 60 5RF Entresto 24-26 mg tablet 1 tab PO BID Qty: 60 3RF capsaicin 0.1 % cream 1 applic topical BID PRN (Reason: joint pain) Rx Instructions: do not wash area for at least 30 min after application pimecrolimus [Elidel] 1 % cream 1 applic topical DAILYP PRN (Reason: eczema) Xarelto 15 mg tablet 15 mg PO DAILY Qty: 30 5RF Rx Instructions: must administer with evening meal levothyroxine 50 mcg tablet 50 mcg PO DAILY Qty: 90 0RF nitroglycerin 0.4 mg tablet, sublingual 0.4 mg SL NEEDED PRN (Reason: Chest Pain) Qty: 25 3RF Rx Instructions: DISSOLVE 1 TABLET UNDER THE TONGUE EVERY 5 TO 15 MINUTES NEEDED FOR CHEST PAIN. IF NO RELIEF AFTER 3 DOSES CALL 911 famotidine 40 mg tablet See Rx Instructions .ROUTE .COMPLEX Qty: 60 3RF Dose Instruction: TAKE ONE TABLET BY MOUTH 2 TIMES A DAY FOR ACID REFLUX Rx Instructions: TAKE ONE TABLET BY MOUTH 2 TIMES A DAY FOR ACID REFLUX pantoprazole 40 mg tablet,delayed release (DR/EC) See Rx Instructions .ROUTE .COMPLEX Qty: 90 1RF Dose Instruction: TAKE ONE TABLET BY MOUTH ONCE A DAY FOR ACID REFLUX Rx Instructions: TAKE ONE TABLET BY MOUTH ONCE A DAY FOR ACID REFLUX bisoprolol fumarate 10 mg tablet 10 mg PO DAILY Qty: 90 1RF clopidogrel 75 mg tablet 75 mg PO DAILY Qty: 90 1RF Ozempic 0.25 mg or 0.5 mg (2 mg/3 mL) pen injector See Rx Instructions .ROUTE .COMPLEX Qty: 3 1RF Dose Instruction: INJECT 0.25 MG SUBCUTANEOUSLY ONCE A WEEK FOR 4 WEEKS Rx Instructions: INJECT 0.25 MG SUBCUTANEOUSLY ONCE A WEEK FOR 4 WEEKS glipizide 10 mg tablet See Rx Instructions .ROUTE .COMPLEX Qty: 60 0RF Dose Instruction: TAKE ONE TABLET BY MOUTH 2 TIMES A DAY FOR DIABETES Rx Instructions: TAKE ONE TABLET BY MOUTH 2 TIMES A DAY FOR DIABETES Linzess 145 mcg capsule See Rx Instructions .ROUTE .COMPLEX Qty: 30 0RF Dose Instruction: TAKE ONE CAPSULE BY MOUTH ONCE A DAY . Rx Instructions: TAKE ONE CAPSULE BY MOUTH ONCE A DAY . budesonide-formoterol [Breyna] 160-4.5 mcg/actuation HFA aerosol inhaler See Rx Instructions .ROUTE .COMPLEX Qty: 10.3 1RF Dose Instruction: INHALE 2 PUFFS BY MOUTH 2 TIMES A DAY FOR SHORTNESS OF BREATH Rx Instructions: INHALE 2 PUFFS BY MOUTH 2 TIMES A DAY FOR SHORTNESS OF BREATH torsemide 100 mg tablet See Rx Instructions .ROUTE .COMPLEX Qty: 30 5RF Dose Instruction: TAKE 1/2 TABLET BY MOUTH ONCE A DAY Rx Instructions: TAKE 1/2 TABLET BY MOUTH ONCE A DAY sennosides [senna] 8.6 mg tablet See Rx Instructions .ROUTE .COMPLEX Qty: 30 1RF Dose Instruction: TAKE ONE TABLET BY MOUTH AT BEDTIME NEEDED FOR CONSTIPATION Rx Instructions: TAKE ONE TABLET BY MOUTH AT BEDTIME NEEDED FOR CONSTIPATION magnesium chloride 70 mg tablet,delayed release (DR/EC) 70 mg PO BID Qty: 60 0RF prochlorperazine maleate 10 mg tablet 10 mg PO BID PRN (Reason: anxiety) Qty: 30 0RF fluticasone propionate 50 mcg/actuation spray,suspension See Rx Instructions .ROUTE .COMPLEX Qty: 16 12RF Dose Instruction: USE 1 SPRAY IN EACH NOSTRIL ONCE A DAY FOR ALLERGIES Rx Instructions: USE 1 SPRAY IN EACH NOSTRIL ONCE A DAY FOR ALLERGIES albuterol sulfate [ProAir HFA] 90 mcg/actuation HFA aerosol inhaler 1 - 2 puff inhalation Q4HP PRN (Reason: asthma) Rx Instructions: INHALE 2 PUFFS BY MOUTH EVERY 4 TO 6 HOURS NEEDED SHORTNESS OF BREATH OR WHEEZING magnesium sulfate 4 mEq/mL (50 %) solution 2 g IV WEEKLY (DME) blood-glucose meter Misc See Rx Instructions .ROUTE .MEDSUPPLY Rx Instructions: As directed (DME) OneTouch Verio test strips Strip See Rx Instructions .ROUTE .MEDSUPPLY Rx Instructions: Check Glucose 4 times daily ammonium lactate 12 % cream 1 applic topical DAILY (DME) lancets 33 gauge misc See Rx Instructions .ROUTE .MEDSUPPLY Rx Instructions: Check Glucose 4 times daily loratadine 10 mg tablet 10 mg PO DAILY PRN (Reason: allergies) Referrals Follow up/Referrals: Mingo Weiss DO [Primary Care Provider] - See instructions Activity Restrictions/Add. Instructions Additional Instructions/Restrictions: At this time it was felt you are safe to be discharged home. If new or worsening symptoms please do not hesitate to return the emergency department. If your symptoms recur please spray the nose spray up your nose as discussed and apply pressure from the sides of the end of your nose firmly for 20 minutes. If bleeding persist present here for continued evaluation. Otherwise use the nose spray up your nose twice a day for 3 days. Clinical Impressions Clinical Impression: Epistaxis Instructions Patient Instructions: DI for Nosebleed Discharge ED Provider: Ru Gómez General Adult HPI General Chief complaint: Epistaxis Stated complaint: nose bleed over 24 hours Time Seen by Provider: 02/06/24 13:23 Mode of Arrival: Ambulatory Source of Information: Patient Limitations: No Limitations Description of Symptoms (Recalled from ER Triage Doc. by RN): nose bleed since 1700 last night. on plavix and xarelto. History of Present Illness HPI narrative: Patient is a 58-year-old male with past medical history of CVA with visual deficits, no motor or sensory deficits, atrial flutter on Xarelto and Plavix who presents emergency department for evaluation of epistaxis. Onset was acute, occurring 5 PM last night, at his left nose, denies trauma. Due to persistence he presents here for continued evaluation. No other acute complaints at this time. Related Data Home Medications Medication Instructions Recorded Confirmed magnesium sulfate 500 mg/mL (50 %) 2 g IV WEEKLY Supplement 09/21/22 01/20/24 injection solution albuterol sulfate 90 mcg/actuation 1 - 2 puff inhalation Q4HP PRN 10/22/22 01/20/24 aerosol inhaler (ProAir HFA) asthma ammonium lactate 12 % topical cream 1 applic topical DAILY . 06/03/23 01/20/24 blood sugar diagnostic (OneTouch 06/03/23 01/20/24 Verio test strips) blood-glucose meter 06/03/23 01/20/24 lancets 33 gauge 06/03/23 01/20/24 capsaicin 0.1 % topical cream 1 applic topical BID PRN joint pain 06/17/23 loratadine 10 mg tablet 10 mg PO DAILY PRN allergies 06/17/23 01/20/24 pimecrolimus 1 % topical cream 1 applic topical DAILYP PRN eczema 06/17/23 01/20/24 (Elidel) latanoprost 0.005 % eye drops 1 drp Eye-Both DAILY 01/04/24 01/20/24 Previous Rx's Medication Instructions Recorded triamcinolone acetonide 0.1 % 1 applic topical QID PRN itching 04/05/23 topical cream #454 grams spironolactone 25 mg tablet 25 mg PO DAILY Fluid #90 tabs 08/17/23 rivaroxaban 15 mg tablet (Xarelto) 15 mg PO DAILY #30 tabs 08/31/23 nitroglycerin 0.4 mg sublingual 0.4 mg sublingual NEEDED PRN 09/14/23 tablet Chest Pain #25 tabs famotidine 40 mg tablet See Rx Instructions .Route 09/22/23 .COMPLEX #60 tabs pantoprazole 40 mg tablet,delayed See Rx Instructions .Route 10/18/23 release .COMPLEX #90 tabs bisoprolol fumarate 10 mg tablet 10 mg PO DAILY #90 tabs 10/19/23 clopidogrel 75 mg tablet 75 mg PO DAILY antiplatelet #90 10/19/23 tabs semaglutide 0.25 mg or 0.5 mg (2 See Rx Instructions .Route 10/22/23 mg/3 mL) subcutaneous pen injector .COMPLEX #3 mL (Ozempic) glipizide 10 mg tablet See Rx Instructions .Route 12/09/23 .COMPLEX #60 tabs linaclotide 145 mcg capsule See Rx Instructions .Route 12/09/23 (Linzess) .COMPLEX #30 caps colchicine 0.6 mg tablet 0.6 mg PO DAILY gout #3 tabs 01/07/24 budesonide-formoterol HFA 160 See Rx Instructions .Route 01/11/24 mcg-4.5 mcg/actuation aerosol .COMPLEX #10.3 grams inhaler (Breyna) amiodarone 200 mg tablet 200 mg PO BID #60 tabs 01/13/24 levothyroxine 50 mcg tablet 50 mcg PO DAILY #90 tabs 01/13/24 sacubitril 24 mg-valsartan 26 mg 1 tab PO BID #60 tabs 01/13/24 tablet (Entresto) torsemide 100 mg tablet See Rx Instructions .Route 01/13/24 .COMPLEX #30 tabs magnesium chloride 70 mg 70 mg PO BID #60 tabs 01/14/24 (magnesium chloride) tablet,delayed release sennosides 8.6 mg tablet (senna) See Rx Instructions .Route 01/14/24 .COMPLEX #30 tabs prochlorperazine maleate 10 mg 10 mg PO BID PRN anxiety #30 tabs 01/28/24 tablet fluticasone propionate 50 See Rx Instructions .Route 02/06/24 mcg/actuation nasal .COMPLEX #16 grams spray,suspension Allergies Allergy/AdvReac Type Severity Reaction Status Date / Time sacubitril [From Entresto] Allergy Mild itching Verified 01/27/24 10:53 valsartan [From Entresto] Allergy Mild itching Verified 01/27/24 10:53 [facility] Disclaimer: The information contained in this section may have been updated after the patient was seen, as this information can be updated by other users. Medical History Gout of right knee Bakers cyst Pain around toenail, left foot Scrotal swelling Epididymitis Femur fracture Scrotal edema CHF (congestive heart failure) Acute on chronic heart failure Edema Diabetes mellitus History of sinus problem Hypothyroidism Glaucoma Anxiety and depression Hypomagnesemia PTSD (post-traumatic stress disorder) Renal insufficiency GERD (gastroesophageal reflux disease) Myocardial infarct HLD (hyperlipidemia) HTN (hypertension) DVT (deep venous thrombosis) CAD (coronary artery disease) CHF (congestive heart failure) Cardiomyopathy Type 2 diabetes mellitus with complication, without long-term current use of insulin Typical angina Atypical angina Dyspnea CKD (chronic kidney disease) 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 Hypocalcemia Cough Otitis media, left Bronchitis Hyperlipidemia associated with type 2 diabetes mellitus Surgical History S/P ORIF (open reduction internal fixation) fracture femur-left History of cholecystectomy History of heart artery stent S/P drug eluting coronary stent placement Family History Other Family history of cancer Family history of diabetes mellitus type II Family history of hypertension Social History Smoking Status: Current every day smoker tobacco type: cigarettes packs per day: 1 second hand exposure: No alcohol intake: current substance use type: former substance user and marijuana current occupational status: disabled Travel in the last 8 weeks: None household members: none housing: apartment lives independently: Yes marital status: single education level: high school service: No [place] [facility]: No current occupational exposures/hazards: No caffeine: Yes special veronica needs: No agree to transfusion: No do you feel safe at home: Yes victim of physical abuse: No victim of emotional abuse: No victim of sexual abuse: No would you like helpful sources: No ROS Obtained: Yes Systems reviewed as appropriate & no additional complaints except as documented Physical Exam General General appearance: alert and in no apparent distress Head Head exam: atraumatic and normocephalic Eye Eye exam: Present PERRL ENT ENT exam: Present mucous membranes moist and other (Oozing blood left nare, dried blood right nare. Blood coating posterior oropharynx, no active hemor rhage down posterior oropharynx) Neck Neck exam: Present normal inspection Chest Chest inspection: Present normal inspection and symmetric chest wall rise Respiratory Respiratory exam: Absent respiratory distress Cardiovascular Cardiovascular exam: Present normal rhythm Abdominal Exam Abdominal exam: Present soft Extremities Exam Extremities exam: Present normal inspection Neurological Exam Neurological exam: Present alert Psychiatric Psychiatric exam: Present normal affect Skin Skin exam: Present warm and dry Medical Decision Making Uziel Inquiry Pt receiving controlled substance: No Vital Signs: 02/06/24 13:27 Temperature 98.4 F Temperature Source Oral Pulse Rate [Right Radial] 72 Respiratory Rate 22 Blood Pressure [Right Arm] 190/126 H Blood Pressure Mean [Right Arm] 147 02 Sat by Pulse Oximetry 96 Oxygen Delivery Method Room Air Orders (Tests/Meds): ED MEDICATIONS Discontinued Medications Generic Name Dose Route Start Last Admin Trade Name Freq PRN Reason Stop Dose Admin Ondansetron HCl 4 mg 02/06/24 13:43 02/06/24 13:47 Ondansetron 4mg Odt SL 02/06/24 13:44 4 mg ONCE ONE Administration Oxymetazoline HCl 2 ml 02/06/24 13:32 02/06/24 13:36 Oxymetazoline Nasal Baker 0.05% 15ml NS 02/06/24 13:33 2 ml ONCE ONE Administration Medical Decision Narrative: In summary patient is a 58-year-old male past medical history described above who presents emergency department for evaluation of epistaxis. Patient is hemodynamically stable nontoxic-appearing upon arrival, afebrile. No trauma, no nasal septal hematoma. Patient is anticoagulated. Given this initial intervention will be conducted with expelling all the clots, intranasal oxymetazoline, pressure for greater than 20 minutes. Upon repeat evaluation patient had a little bit of oozing for which lidocaine with epinephrine was administered. Patient where period of observation, had resolution of ongoing nasal bleeding. Given this Rhino Rocket is not indicated at this time and patient is appropriate for discharge and was given return precautions and will be discharged with phenylephrine. Critical Care Critical Care Time Critical Care Time: No
[2024-02-06] MEDS: OXYMETAZOLINE NASAL SPRAY 0.05% 15ML 2 ML NS (13:36)
[2024-02-06] MEDS: ONDANSETRON 4MG ODT 4 MG SL (13:47)
--- NOTE | 2024-02-06 14:07 | PC.NURSE ---
DR FARIAS AT BEDSIDE TO REEVALUATE PT
--- NOTE | 2024-02-06 14:48 | PC.NURSE ---
FAMILY AT BEDSIDE, NO NEEDS AT THIS TIME
[2024-02-06 14:50] VITALS: BP 158/99; PULSE 78; RESP 20; TEMP 36.7; O2SAT 96
[2024-02-06 14:52] VITALS: BP 158/99; PULSE 69; RESP 20; O2SAT 96
== END 2024-02-06 14:59 | disposition home or self-care (01) ==
PROVIDERS: Emergency Provider Emergency Medicine; PCP Internal Medicine
DX: R04.0 Epistaxis (principal); F17.210 Nicotine dependence, cigarettes, uncomplicated; I11.0 Hypertensive heart disease with heart failure; I50.9 Heart failure, unspecified; E11.9 Type 2 diabetes mellitus without complications; E03.9 Hypothyroidism, unspecified; K21.9 Gastro-esophageal reflux disease without esophagitis; E78.5 Hyperlipidemia, unspecified; I25.119 Atherosclerotic heart disease of native coronary artery with unspecified angina pectoris; N18.9 Chronic kidney disease, unspecified; I12.9 Hypertensive chronic kidney disease with stage 1 through stage 4 chronic kidney disease, or unspecified chronic kidney disease; Z95.5 Presence of coronary angioplasty implant and graft; Z79.84 Long term (current) use of oral hypoglycemic drugs
CPT/HCPCS: 99283

== ENCOUNTER 2024-02-28 12:38 | Outpatient (CLI) | payer OTHER, SELFPAY ==
[2024-02-28 12:45] VITALS: BMI 41.9
[2024-02-28 13:11] VITALS: BP 124/72; PULSE 60; RESP 18; TEMP 36.9; O2SAT 98
[2024-02-28] MEDS: SODIUM CHLORIDE 0.9% 10ML FLUSH SYRINGE 10 ML IV (13:11)
[2024-02-28] MEDS: MAGNESIUM SULFATE IN WATER 2 GM/50 ML PIGGYBACK IV (13:11)
[2024-02-28] MEDS: SODIUM CHLORIDE 0.9% 50ML BAG 50 ML IV (13:11)
[2024-02-28 13:18] LABS: Chloride 99 mmol/L (98-107); Sodium 132 mmol/L (136-145)
[2024-02-28 13:19] LABS: Potassium 4.5 mmoL/L (3.5-5.1)
[2024-02-28 13:21] LABS: Anion Gap 8.5 mEq/L (5-15); Blood Urea Nitrogen 28 mg/dl (9-20); Carbon Dioxide 29 mmol/L (22.0-30.0); Creatinine Clearance Estimated 51 mL/min (50-200); Estimated Glomerular Filt Rate 45 ml/min (>60); GFR (African American) 54 ML/MIN (>60); Glucose 148 mg/dl (74-100)
[2024-02-28 13:22] LABS: Calcium 8.5 mg/dl (8.4-10.2)
[2024-02-28 14:20] VITALS: BP 120/75; PULSE 61; RESP 18; O2SAT 98
== END 2024-02-28 14:15 | disposition home or self-care (01) ==
LOC: INF 12:39
PROVIDERS: PCP Internal Medicine; Visit Provider Physician Assistant
DX: E83.42 Hypomagnesemia (principal)
CPT/HCPCS: 80048; 83735; 96365; J3475

== ENCOUNTER 2024-04-06 14:52 | Outpatient (CLI) | payer OTHER, SELFPAY ==
--- NOTE | 2024-04-06 14:53 | CT_ITS ---
FINAL REPORT TECHNIQUE: Thin section axial CT images of the facial bones and sinuses were obtained without contrast. Coronal reformatted images were also obtained.This study was performed with techniques to keep radiation doses as low as reasonably achievable, (ALARA). Individualized dose reduction techniques using automated exposure control or adjustment of mA and/or kV according to the patient''''s size were employed. CLINICAL HISTORY: reocurrent nose bleeds COMPARISON: None FINDINGS: There is mild mucosal thickening in the maxillary sinuses, greater on the left than on the right. There is also mucosal thickening in several ethmoid air cells and in the left frontal sinuses, without discrete air-fluid levels. There is mild mucosal thickening of the maxillary ostia bilaterally, and narrowing. There is right nasal septal deviation and a right septal spur. No fracture or acute bony abnormality is identified. IMPRESSION: Mucosal thickening in multiple sinuses as described above without discrete air-fluid levels. Mild mucosal thickening in the ostia of the maxillary sinuses bilaterally producing narrowing. Reviewed, Interpreted and Dictated by Trent Morales III, MD Transcribed by Leah Fraser Authenticated and [facility]
== END 2024-04-06 23:59 | disposition home or self-care (01) ==
LOC: RAD 14:53
PROVIDERS: PCP Internal Medicine; Visit Provider Nurse Practitioner
DX: R04.0 Epistaxis (principal)
CPT/HCPCS: 70486

== ENCOUNTER 2024-04-17 11:31 | Outpatient (CLI) | payer OTHER, SELFPAY ==
[2024-04-17 11:42] VITALS: BMI 39.2
[2024-04-17] MEDS: SODIUM CHLORIDE 0.9% 50ML BAG 50 ML IV (12:03)
[2024-04-17 12:04] VITALS: BP 132/87; PULSE 61; RESP 16; TEMP 36.6; O2SAT 98
[2024-04-17] MEDS: MAGNESIUM SULFATE IN WATER 2 GM/50 ML PIGGYBACK IV (12:04)
[2024-04-17] MEDS: SODIUM CHLORIDE 0.9% 10ML FLUSH SYRINGE 10 ML IV (12:04)
[2024-04-17 12:23] LABS: Anion Gap 12.1 mEq/L (5-15); Blood Urea Nitrogen 28 mg/dl (9-20); Calcium 8.7 mg/dl (8.4-10.2); Carbon Dioxide 32 mmol/L (22.0-30.0); Chloride 96 mmol/L (98-107); Creatinine Clearance Estimated 81 mL/min (50-200); Estimated Glomerular Filt Rate 42 ml/min (>60); GFR (African American) 50 ML/MIN (>60); Glucose 141 mg/dl (74-100); Potassium 4.1 mmoL/L (3.5-5.1); Sodium 136 mmol/L (136-145)
[2024-04-17 12:24] LABS: Magnesium 0.9 mg/dl (1.6-2.3)
[2024-04-17 13:04] VITALS: BP 132/89; PULSE 62; RESP 18; TEMP 36.6; O2SAT 98
== END 2024-04-17 13:10 | disposition home or self-care (01) ==
LOC: INF 11:34
PROVIDERS: PCP Internal Medicine; Visit Provider Physician Assistant
DX: E83.42 Hypomagnesemia (principal)
CPT/HCPCS: 80048; 83735; 96365; J3475

== ENCOUNTER 2024-05-29 12:00 | Outpatient (CLI) | payer OTHER, SELFPAY ==
[2024-05-29 12:14] VITALS: BMI 38.4
[2024-05-29 12:37] VITALS: BP 123/70; PULSE 58; RESP 16; TEMP 36.8; O2SAT 100
[2024-05-29 12:37] LABS: Chloride 108 mmol/L (98-107); Sodium 135 mmol/L (136-145)
[2024-05-29] MEDS: SODIUM CHLORIDE 0.9% 50ML BAG 50 ML IV (12:37)
[2024-05-29] MEDS: MAGNESIUM SULFATE IN WATER 2 GM/50 ML PIGGYBACK IV (12:37)
[2024-05-29] MEDS: SODIUM CHLORIDE 0.9% 10ML FLUSH SYRINGE 10 ML IV (12:37)
[2024-05-29 12:38] LABS: Potassium 4.6 mmoL/L (3.5-5.1)
[2024-05-29 12:40] LABS: Anion Gap 8.6 mEq/L (5-15); Blood Urea Nitrogen 33 mg/dl (9-20); Carbon Dioxide 23 mmol/L (22.0-30.0); Creatinine Clearance Estimated 84 mL/min (50-200); Estimated Glomerular Filt Rate 45 ml/min (>60); GFR (African American) 54 ML/MIN (>60)
[2024-05-29 12:41] LABS: Calcium 8.2 mg/dl (8.4-10.2); Glucose 133 mg/dl (74-100)
[2024-05-29 13:37] VITALS: BP 128/57; PULSE 59; RESP 16; TEMP 36.8; O2SAT 99
== END 2024-05-29 13:50 | disposition home or self-care (01) ==
LOC: INF 12:03
PROVIDERS: PCP Internal Medicine; Visit Provider Physician Assistant
DX: E83.42 Hypomagnesemia (principal)
CPT/HCPCS: 80048; 83735; 96365; J3475

== ENCOUNTER 2024-06-07 12:43 | Outpatient (CLI) | payer OTHER, SELFPAY ==
--- NOTE | 2024-06-07 12:46 | CA_ITS ---
APPROVED REPORT EXAM: Comprehensive 2D, Doppler, and color-flow Echocardiogram Chip Tuner: Molly Stephens RVT Ht: 5 ft 9 in Wt: 265lbs BSA: 2.33 BP: 142/78 mmHg Indications: HX CVA,A-FIB,CM,CHF,CAD,SMOKER,COPD,HTN,HLD Echo Enhancing Agent Indication: Rule out Shunt Agent(s) / Amount(s) Used: Agitated Saline 10 cc 2D Dimensions LA Volume 92.10 mL LA Volume Index 39.53 mL/m2 (M/F) 16-34 M-Mode Dimensions RVDd 4.27 cm (0.9-2.6) LA Diam 4.61 cm (1.9-4.0) LVDd 5.49 cm (3.5-5.7) LVDs 4.36 cm (3.5-5.7) IVSd 0.94 cm (0.6-1.1) PWd 0.42 cm (0.6-1.1) EF (Teich) 41.60% FS 20.60% EDV (Teich) 146.80 mL TAPSE 2.54 (<1.7) ESV (Teich) 85.80 mL LV Diastology E Decel Time 190 (160-240 msec) E/A Ratio 1.9 Aortic Valve ROBERT Index 1.24 cm2/m2 AoV Peak Héctor. 114.0 (50-130 cm/s) AO Peak GR. 5.20 mmHg AO Mean GR. 3.00 (<5 mmHg) AO VTI 23.3 (18-25 cm) ROBERT (VTI) 2.94 (2.5-4.5 cm2) Mitral Valve MV E Max Héctor. 79.0 (40-130 cm/s) MV A Velocity 42.0 (40-130 cm/s) E/A Ratio 1.87 MV PHT 56.0 ms Pulmonary Valve PV Peak Velocity 67.0 (50-150 cm/s) Tricuspid Valve TR P. Velocity 306.00 cm/s RAP Estimate 10.00 mmHg RVSP 47.50 mmHg Left Ventricle The left ventricle is normal size. The left ventricular systolic function is mildly to moderately reduced. There is normal left ventricular wall thickness. There is mild to moderate global hypokinesis present. There is moderate to severe hypokinesis of the inferior, inferoseptal, and inferolateral LV dash. The left ventricular diastolic function is normal. LVEF is 40%. Right Ventricle Right ventricle is mildly dilated. Right ventricle is mildly hypokinetic. Atria Left atrium is mildly dilated. Right atrium is mildly dilated. There is no Doppler evidence of interatrial shunt. Agitated saline administration demonstrates no evidence of interatrial shunt. Aortic Valve The aortic valve is normal in structure. There is no aortic valvular stenosis. Trace aortic regurgitation. Mitral Valve The mitral valve is normal in structure. No evidence of mitral valve stenosis. Trace mitral regurgitation. Tricuspid Valve The tricuspid valve leaflets are thin and pliable. Mild tricuspid regurgitation. RVSP is 25-30 mmHg. Pulmonic Valve The pulmonary valve is normal in structure. Trace pulmonic regurgitation. Great Vessels The aortic root is normal in size. The ascending aorta is normal in size. IVC is normal in size and collapses >50% with inspiration. Pericardium There is no pericardial effusion. Other Information Study Quality: Fair Conclusion LV systolic function is mildly to moderately reduced (LVEF 40%). Moderate to severe hypokinesis of the inferior, inferoseptal, and inferolateral LV dash. Right ventricle is mildly dilated with mildly reduction in RV function. Mild biatrial dilation. Mild TR. RVSP is 25-30 mmHg. There is no Doppler evidence of interatrial shunt. Agitated saline administration demonstrates no evidence of interatrial shunt. Electronically signed by : Surekha Clements MD 06/11/2024 18:19:00
--- NOTE | 2024-06-07 13:42 | XR_ITS ---
FINAL REPORT CLINICAL HISTORY: Ankle Pain states possible calcium deposit FINDINGS: Right ankle Three views were obtained. There is no acute fracture or dislocation. There are moderate degenerative changes. There is chronic calcification inferior to the medial malleolus. Diffuse soft tissue swelling is identified. Note is made of calcaneal spurs. There are postoperative changes or foreign bodies at the level of the calcaneus. IMPRESSION: Degenerative and chronic appearing findings. Postoperative changes versus foreign bodies at the level of the calcaneus. Reviewed, Interpreted and Dictated by Trent Morales III, MD Transcribed by Misti Casey Authenticated and . [facility]
[2024-06-07 15:22] LABS: Anion Gap 11.5 mEq/L (5-15); Blood Urea Nitrogen 26 mg/dl (9-20); Calcium 9.2 mg/dl (8.4-10.2); Carbon Dioxide 22 mmol/L (22.0-30.0); Chloride 107 mmol/L (98-107); Estimated Glomerular Filt Rate 48 ml/min (>60); GFR (African American) 58 ML/MIN (>60); Glucose 107 mg/dl (74-100); Magnesium 1.3 mg/dl (1.6-2.3); Potassium 4.5 mmoL/L (3.5-5.1); Sodium 136 mmol/L (136-145)
== END 2024-06-07 23:59 | disposition home or self-care (01) ==
LOC: RT 12:44
PROVIDERS: PCP Internal Medicine; Visit Provider Physician Assistant
DX: I63.431 Cerebral infarction due to embolism of right posterior cerebral artery (principal); I11.0 Hypertensive heart disease with heart failure; I25.10 Atherosclerotic heart disease of native coronary artery without angina pectoris; I50.9 Heart failure, unspecified; I42.0 Dilated cardiomyopathy; I48.92 Unspecified atrial flutter; I48.91 Unspecified atrial fibrillation; H53.462 Homonymous bilateral field defects, left side; E03.9 Hypothyroidism, unspecified; J44.9 Chronic obstructive pulmonary disease, unspecified; E83.42 Hypomagnesemia; E78.2 Mixed hyperlipidemia; M25.571 Pain in right ankle and joints of right foot; Z86.718 Personal history of other venous thrombosis and embolism; F17.210 Nicotine dependence, cigarettes, uncomplicated
CPT/HCPCS: 36415; 73610; 80048; 83735; 93306

== ENCOUNTER 2024-08-01 16:23 | Outpatient (CLI) | payer OTHER, SELFPAY ==
[2024-08-01 17:08] LABS: Basophils # 0.1 K/mm3 (0-0.2); Basophils % 0.8 % (0.1-2.0); Eosinophils # 0.3 K/mm3 (0.0-0.4); Eosinophils % 2.8 % (0.1-12.0); Hemoglobin 15.1 g/dL (14.1-18.0); Lymphocytes # 2.2 K/mm3 (0.7-4.5); Lymphocytes % 24.4 % (10-50); Mean Corpuscular HGB Conc 31.5 g/dL (31.8-35.4); Mean Corpuscular Hemoglobin 30.8 pg (27.0-31.2); Mean Corpuscular Volume 97.5 fl (80-94); Mean Platelet Volume 7.4 fl (7.4-10.4); Monocytes # 0.8 K/mm3 (0.1-1.0); Monocytes % 9.2 % (1.7-9.3); Neutrophils # 5.5 K/mm3 (1.8-7.8); Neutrophils % 62.8 % (37.0-80.0); Platelet Count 397 K/mm3 (142-424); Red Blood Count 4.92 M/mm3 (4.60-6.20); Red Cell Distribution Width 17.6 % (11.5-17.5); White Blood Count 8.8 K/mm3 (4.8-10.8)
[2024-08-01 17:33] LABS: Hemoglobin A1C 6.2 % (4.0-6.0)
[2024-08-01 18:05] LABS: Albumin Level 4.2 g/dl (3.5-5.0); Chloride 99 mmol/L (98-107)
[2024-08-01 18:06] LABS: Potassium 4.5 mmoL/L (3.5-5.1); Sodium 136 mmol/L (136-145)
[2024-08-01 18:08] LABS: Alanine Aminotransferase 16 U/L (12-78); Albumin/Globulin Ratio 1.4 (1.1-1.8); Alkaline Phosphatase 97 U/L (38-126); Anion Gap 14.5 mEq/L (5-15); Aspartate Amino Transferase 24 U/L (17-59); Bilirubin,Total 0.8 mg/dl (0.2-1.3); Blood Urea Nitrogen 25 mg/dl (9-20); Calcium 9.4 mg/dl (8.4-10.2); Carbon Dioxide 27 mmol/L (22.0-30.0); Cholesterol 211 mg/dl (140-200); Estimated Glomerular Filt Rate 39 ml/min (>60); GFR (African American) 47 ML/MIN (>60); Globulin 3.1 g/dL (1.3-3.2); Glucose 106 mg/dl (74-100); Total Protein,Serum 7.3 g/dl (6.3-8.2); Triglycerides 161 mg/dl (30-150); VLDL Cholesterol 32 mg/dL (0-40)
[2024-08-01 18:09] LABS: Magnesium 1.1 mg/dl (1.6-2.3)
[2024-08-01 18:28] LABS: Chol/HDL Ratio 5.4 (1-3.5); HDL Cholesterol 39 mg/dl (40-60); Uric Acid 10.5 mg/dl (3.5-8.5)
[2024-08-01 18:39] LABS: Direct LDL Cholesterol 135.99 mg/dL (100-129)
== END 2024-08-01 23:59 | disposition home or self-care (01) ==
LOC: LAB.DROPOF 08-02 10:24
PROVIDERS: PCP Internal Medicine; Visit Provider Internal Medicine
DX: M1A.39X1 Chronic gout due to renal impairment, multiple sites, with tophus (tophi) (principal); E83.42 Hypomagnesemia; E11.22 Type 2 diabetes mellitus with diabetic chronic kidney disease; N18.32 Chronic kidney disease, stage 3b; I50.9 Heart failure, unspecified; E78.2 Mixed hyperlipidemia; Z13.1 Encounter for screening for diabetes mellitus; Z13.220 Encounter for screening for lipoid disorders; Z00.00 Encounter for general adult medical examination without abnormal findings
CPT/HCPCS: 80053; 80061; 83036; 83735; 84550; 85025

== ENCOUNTER 2024-08-22 08:28 | Day surgery (SDC) | payer OTHER, SELFPAY ==
[2024-08-18 14:24] VITALS: BMI 38.7
[2024-08-22 08:41] VITALS: BP 153/83; PULSE 66; RESP 18; TEMP 36.3; O2SAT 100
--- NOTE | 2024-08-22 08:50 | HMH.SCOPE ---
Procedure: Date: 08/22/24 Patient Date of :: 1965 Procedure Performed:: Colonoscopy Indications:: History of colon polyps Note: Most recent colonoscopy September 2021 was complicated by poor relaxation and fairly severe spasticity. Hemorrhoids noted. Colonoscopy September 2018 was complicated by limited visualization. He does have known polyps from prior colonoscopies. He has undergone a barium enema on 2 separate occasions. His initial barium enema revealed a potential 1 cm polyp; however, follow-up barium enema revealed no significant abnormality. Performing Provider:: Pravin Aquino MD Referring Provider:: . Sedation:: Monitored anesthesia care Procedure:: After informed consent was obtained the patient was taken to the endoscopy suite. Sedation ensued after the patient was transferred to the left lateral decubitus position. Pulse, blood pressure, and oxygen saturation were monitored throughout the procedure. Digital rectal exam revealed no significant abnormality. The colonoscope was placed in position. The entire colon was evaluated. The colonoscope was carefully removed and the patient was transferred to recovery in stable condition. Please see findings and specimens below for detail. Findings:: Bowel preparation fair to moderate Moderate spasticity/lack of relaxation Hemorrhoidal cushions Specimens:: None Recommendations:: Repeat colonoscopy in 3-5 years secondary to history of polyps, spasticity, and lack of relaxation. Complications:: No immediate Estimated blood obtained (mL): 0 Colonoscopy Component Colonoscopy Component Was a colonoscopy performed during today's procedure?: Yes Recommended follow up colonoscopy of at least 10 years?: No If no, follow up colonoscopy recommended in ___ years?: (See above) Reason for not recommending >/= 10 yr follow-up interval?: (See above)
[2024-08-22 08:52] LABS: POC Glucose,Bedside 127 (70-110)
[2024-08-22 08:57] VITALS: O2SAT 100
--- NOTE | 2024-08-22 09:14 | EXP.ANES.CKL ---
[facility] Disclaimer: The information contained in this section may have been updated after the patient was seen, as this information can be updated by other users. Medical History Acute on chronic heart failure Anxiety and depression Atypical angina Bakers cyst Bronchitis CAD (coronary artery disease) Cardiomyopathy CHF (congestive heart failure) CHF (congestive heart failure) CKD (chronic kidney disease) Cough Diabetes mellitus DVT (deep venous thrombosis) Dyspnea Edema Epididymitis Femur fracture Fusion of fourth and fifth metacarpals GERD (gastroesophageal reflux disease) Glaucoma Gout of right knee History of sinus problem HLD (hyperlipidemia) HTN (hypertension) Hyperlipidemia associated with type 2 diabetes mellitus Hypocalcemia Hypomagnesemia Hypothyroidism Myocardial infarct Otitis media, left Pain around toenail, left foot PTSD (post-traumatic stress disorder) 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 Renal insufficiency Scrotal edema Scrotal swelling Type 2 diabetes mellitus with complication, without long-term current use of insulin Typical angina Surgical History History of cholecystectomy History of heart artery stent S/P drug eluting coronary stent placement S/P ORIF (open reduction internal fixation) fracture femur-left Family History Other Family history of cancer Family history of diabetes mellitus type II Family history of hypertension Social History Smoking Status: Current every day smoker tobacco type: cigarettes packs per day: 1 second hand exposure: No alcohol intake: current alcohol intake frequency: a few times a month substance use type: former substance user and marijuana current occupational status: disabled Travel in the last 8 weeks: None household members: none housing: apartment lives independently: Yes marital status: single education level: high school service: No longterm: No current occupational exposures/hazards: No caffeine: Yes special veronica needs: No agree to transfusion: No do you feel safe at home: Yes victim of physical abuse: No victim of emotional abuse: No victim of sexual abuse: No would you like helpful sources: No [facility] Anesthesia Checklist Patient Identification Patient Identification: Arm Band and Verbal (Name & ) Structural Data Admitted From: Home Planned Operative Procedure/s: colonoscopy Consent for Planned Operative Procedure(s) Verified: Yes Verified Documents: Surgical Consent and History and Physical NPO Status Verified Time NPO: 23:30 Chart Verification Results Verified: CBC, BMP and ECG Additional verifications Fingerstick Blood Glucose: 127 Patient : No Anesthesia Reactions: No Hx Blood Transfusions: No Blood Transfusion Reaction: No Cardiovascular Assessment Heart Sounds: S1 & S2 Pulse Rhythm: Irregular Peripheral Edema: No Airway Assessment Mallampati Score:: Class II C-Spine Mobility Assessed: Yes (FROM) TMJ Mobility Assessed: Yes Dentition: Poor Dentition (Nothing loose per pt.) Neurological Assessment Level of Consciousness: Awake, Alert, Appropriate and Follows Commands Hx Seizures: No Numbness or tingling in extremities: No Anesthesia Plan Anesthesia Risk discussed: Yes Anesthesia Plan: Verified ASA Class: III Anesthesia Type: MAC
[2024-08-22 09:31] VITALS: BP 103/63; PULSE 65; RESP 16; TEMP 36.2; O2SAT 93
[2024-08-22 09:41] VITALS: BP 116/77; PULSE 62; RESP 16; O2SAT 97
[2024-08-22 09:51] VITALS: BP 119/73; PULSE 63; RESP 18; O2SAT 98
[2024-08-22 09:55] VITALS: BP 139/77; PULSE 65; RESP 16; O2SAT 99
== END 2024-08-22 10:03 | disposition home or self-care (01) ==
PROVIDERS: PCP Internal Medicine; Visit Provider Surgery
PROC: 0DJD8ZZ Inspection of Lower Intestinal Tract, Via Natural or Artificial Opening Endoscopic (ICD-10-PCS; CPT 45378; principal; 2024-08-22 09:30)
DX: Z86.0100 Personal history of colon polyps, unspecified (principal); K64.9 Unspecified hemorrhoids
CPT/HCPCS: 45378; 82962

== ENCOUNTER 2024-09-12 15:14 | Outpatient (CLI) | payer OTHER, SELFPAY ==
[2024-09-12 18:58] LABS: Alanine Aminotransferase 14 U/L (12-78); Albumin Level 4.1 g/dl (3.5-5.0); Albumin/Globulin Ratio 1.5 (1.1-1.8); Alkaline Phosphatase 133 U/L (38-126); Anion Gap 17.7 mEq/L (5-15); Aspartate Amino Transferase 26 U/L (17-59); Bilirubin,Total 0.9 mg/dl (0.2-1.3); Blood Urea Nitrogen 15 mg/dl (9-20); Calcium 8.8 mg/dl (8.4-10.2); Carbon Dioxide 24 mmol/L (22.0-30.0); Chloride 98 mmol/L (98-107); Estimated Glomerular Filt Rate 52 ml/min (>60); GFR (African American) 63 ML/MIN (>60); Globulin 2.7 g/dL (1.3-3.2); Glucose 112 mg/dl (74-100); Potassium 4.7 mmoL/L (3.5-5.1); Sodium 135 mmol/L (136-145); Total Protein,Serum 6.8 g/dl (6.3-8.2); Uric Acid 6.1 mg/dl (3.5-8.5)
== END 2024-09-12 23:59 | disposition home or self-care (01) ==
LOC: LAB.DROPOF 09-13 10:10
PROVIDERS: PCP Internal Medicine; Visit Provider Internal Medicine
DX: Z00.00 Encounter for general adult medical examination without abnormal findings (principal); Z87.39 Personal history of other diseases of the musculoskeletal system and connective tissue
CPT/HCPCS: 80053; 84550

== ENCOUNTER 2024-09-21 12:51 | Outpatient (CLI) | payer OTHER, SELFPAY ==
--- NOTE | 2024-09-21 12:55 | CA_ITS ---
FINAL REPORT CLINICAL HISTORY: Leg pain, Gout, CAD-coronary stent, Smoker, DM, HTN, HLD COMPARISON: None FINDINGS: BILATERAL LOWER EXTREMITY DUPLEX DOPPLER Color Doppler and duplex Doppler of the bilateral lower extremity was performed. Spectral analysis was also performed. Velocities were measured at multiple levels. All velocities are in centimeters per second. RIGHT BARREL FILLER: 93 Profunda: 58 SFA Prox: 100 SFA Mid: 85 SFA Distal: 116 Pop Prox: 64 Pop Dist: 55 TEXTILE EXAMINER Mid: 82 BUDDY Mid: 69 Per Prox: 93 Waveforms are triphasic throughout. LEFT BARREL FILLER: 94 Profunda: 102 SFA Prox: 82 SFA Mid: 100 SFA Distal: 94 Pop Prox: 63 Pop Dist: 58 TEXTILE EXAMINER Mid: 81 BUDDY Mid: 86 Per Prox: 63 Waveforms are triphasic throughout. IMPRESSION: Waveforms are noted to be triphasic throughout. No significant arterial occlusive disease identified. Reviewed, Interpreted and Dictated by Hardeep Gerber MD Transcribed by Shabnam Banuelos Authenticated and [facility]
== END 2024-09-21 23:59 | disposition home or self-care (01) ==
LOC: RT 12:52
PROVIDERS: PCP Internal Medicine; Visit Provider Internal Medicine
DX: I73.9 Peripheral vascular disease, unspecified (principal)
CPT/HCPCS: 93925

== ENCOUNTER 2024-09-27 16:09 | Outpatient (CLI) | payer OTHER, SELFPAY ==
[2024-09-27 16:39] LABS: Anion Gap 14.6 mEq/L (5-15); Blood Urea Nitrogen 17 mg/dl (9-20); Calcium 8.6 mg/dl (8.4-10.2); Carbon Dioxide 24 mmol/L (22.0-30.0); Chloride 99 mmol/L (98-107); Estimated Glomerular Filt Rate 42 ml/min (>60); GFR (African American) 50 ML/MIN (>60); Glucose 184 mg/dl (74-100); Potassium 4.6 mmoL/L (3.5-5.1); Sodium 133 mmol/L (136-145); Uric Acid 7.3 mg/dl (3.5-8.5)
== END 2024-09-27 23:59 | disposition home or self-care (01) ==
LOC: LAB.DROPOF 16:10
PROVIDERS: PCP Internal Medicine; Visit Provider Internal Medicine
DX: N18.32 Chronic kidney disease, stage 3b (principal); M1A.39X1 Chronic gout due to renal impairment, multiple sites, with tophus (tophi)
CPT/HCPCS: 80048; 84550

== ENCOUNTER 2024-10-23 14:56 | Outpatient (CLI) | payer OTHER, SELFPAY ==
--- NOTE | 2024-10-23 14:57 | US_ITS ---
PROCEDURE INFORMATION: Exam: US Left Breast, Complete Exam date and time: 10/23/2024 3:02 PM Age: 59 years old Clinical indication: Left retroareolar pain TECHNIQUE: Imaging protocol: Complete ultrasound of all four quadrants of the left breast and the retroareolar regions, including ultrasound of the axilla when performed. COMPARISON: No relevant prior studies available. FINDINGS: ULTRASOUND: Breast ultrasound findings: Retroareolar hypoechoic tissue with posterior flame shaped margin has features of benign gynecomastia. No suspicious masses No distortion or shadowing IMPRESSION: No sonographic evidence of malignancy. Careful clinical follow-up is required regarding suspected gynecomastia. If symptoms were to progress bilateral diagnostic mammogram should be performed for definitive characterization ASSESSMENT: BI-RADS category 2: Benign
== END 2024-10-23 23:59 | disposition home or self-care (01) ==
LOC: RAD 14:57
PROVIDERS: PCP Internal Medicine; Visit Provider Internal Medicine
DX: N63.20 Unspecified lump in the left breast, unspecified quadrant (principal)
CPT/HCPCS: 76641

== ENCOUNTER 2024-12-19 16:53 | Outpatient (CLI) | payer OTHER, SELFPAY ==
[2024-12-19 23:06] LABS: Albumin Level 4.1 g/dl (3.5-5.0); Chloride 101 mmol/L (98-107); Potassium 4.5 mmoL/L (3.5-5.1); Sodium 134 mmol/L (136-145)
[2024-12-19 23:09] LABS: Alanine Aminotransferase 13 U/L (12-78); Albumin/Globulin Ratio 1.5 (1.1-1.8); Alkaline Phosphatase 116 U/L (38-126); Anion Gap 13.5 mEq/L (5-15); Aspartate Amino Transferase 20 U/L (17-59); Bilirubin,Total 0.7 mg/dl (0.2-1.3); Blood Urea Nitrogen 20 mg/dl (9-20); Carbon Dioxide 24 mmol/L (22.0-30.0); Estimated Glomerular Filt Rate 48 ml/min (>60); GFR (African American) 58 ML/MIN (>60); Globulin 2.8 g/dL (1.3-3.2); Glucose 128 mg/dl (74-100); Total Protein,Serum 6.9 g/dl (6.3-8.2)
[2024-12-19 23:12] LABS: Uric Acid 5.2 mg/dl (3.5-8.5)
== END 2024-12-19 23:59 | disposition home or self-care (01) ==
LOC: LAB.DROPOF 16:53
PROVIDERS: PCP Internal Medicine; Visit Provider Internal Medicine
DX: N18.32 Chronic kidney disease, stage 3b (principal); M1A.39X1 Chronic gout due to renal impairment, multiple sites, with tophus (tophi)
CPT/HCPCS: 80053; 84550

== ENCOUNTER 2024-12-21 08:56 | Outpatient (CLI) | payer OTHER, SELFPAY ==
--- NOTE | 2024-12-21 08:57 | US_ITS ---
FINAL REPORT CLINICAL HISTORY: Possible umbilical hernia COMPARISON: None FINDINGS: Limited sonographic images were obtained of the soft tissues in the region of interest. There appears to be a hernia of the umbilicus. The hernia appears to contain fat, but does not appear to contain bowel. IMPRESSION: Fat-containing umbilical hernia. Consider CT to confirm. Reviewed, Interpreted and Dictated by Mae Granados MD Transcribed by Shabnam Banuelos Authenticated and [facility]
== END 2024-12-21 23:59 | disposition home or self-care (01) ==
LOC: RAD 08:57
PROVIDERS: PCP Internal Medicine; Visit Provider Internal Medicine
DX: K42.9 Umbilical hernia without obstruction or gangrene (principal)
CPT/HCPCS: 76705

== ENCOUNTER 2025-01-23 12:52 | Outpatient (CLI) | payer OTHER, SELFPAY ==
--- NOTE | 2025-01-23 13:00 | MR_ITS ---
FINAL REPORT TECHNIQUE: Multiplanar and multisequence imaging of the right knee was obtained without contrast. CLINICAL HISTORY: Rt Knee pain. swelling x1week. hx gout. instability in knee. steriod shots not helping COMPARISON: 01/07/2023 FINDINGS: Bones: There is no acute fracture or marrow edema. Mild degenerative disease with chondromalacia involving all 3 compartments. Stable high-grade partial-thickness cartilage defect of the trochlea. No convincing erosions. Menisci: Stable truncated body lateral meniscus. Otherwise, no meniscal tear is present. Ligaments: Cruciate ligaments intact. Appearance of the MCL similar to the prior exam with fluid between the surface and deep fibers, and abnormal signal intensity surrounding the ligament, stable from prior. Lateral collateral ligament intact. Tendons/Muscles: The quadriceps and patellar tendons are within normal limits. The biceps femoris tendon and iliotibial tract are intact. The popliteus tendon is normal. Other: There is a large joint effusion with synovial thickening consistent with synovitis. Popliteal cyst is unchanged. Interval worsening of more diffuse soft tissue edema about the knee. IMPRESSION: Stable appearance of body lateral meniscus and medial collateral ligament since prior exam. Large joint effusion with synovitis. Inflammatory arthropathy not entirely excluded. Worsening nonspecific soft tissue edema. Reviewed, Interpreted and Dictated by Mae Granados MD Transcribed by Shabnam Banuelos Authenticated and [facility]
== END 2025-01-23 23:59 | disposition home or self-care (01) ==
LOC: RAD 12:52
PROVIDERS: PCP Internal Medicine; Visit Provider Physician Assistant
DX: M25.561 Pain in right knee (principal); M23.91 Unspecified internal derangement of right knee
CPT/HCPCS: 73721

== ENCOUNTER 2025-02-27 16:27 | Outpatient (CLI) | payer OTHER, SELFPAY ==
--- OUTSIDE RECORDS SUMMARY | 2025-02-27 16:29 | XMS_ITS | Data Portability ---
Author Organization [facility] ADMIN Address [address] [place] [id number] Assessment No assessment recorded. Plan of Treatment Reminders Order Date Submit Date Provider Last Modified By Organization Details Last Modified Time Details Appointments None record ed. Lab None record ed. Referral None record ed. Procedures None record ed. Surgeries None record ed. Imaging None record ed. Medication Orders None record ed. Patient TargetsNo targets recorded. Patient InstructionsNo instructions recorded. Reason for Referral None Reported. Problems Name Problem SNOMED Code Status Onset Date Resolution Date Notes Provider Name and Address Organization Details Recorded Time Gastroesophage al reflux disease 240214432 Active 2021 Vamshimarcio Conrad [place], [place] - [facility] - [place] & [place] 2 09:04:24 Coronary arterioscleros is 65190126 Active 2021 Swapnamyron Conrad [place], [place] - [facility] & [place] 2 09:04:32 Diabetes mellitus 75015442 Active 2021 Law Houston sena, [place] - [facility] - [facility] & [place] 2 09:04:40 Hypertensive disorder 64880781 Active 2021 Law Houston null, [place] - [facility] & [place] 2 09:04:47 Hypercholester olemia 64750256 Active 2021 Law Houston sena, [place] - [facility] & [place] 2 09:04:56 Chronic obstructive pulmonary disease 83377956 Active 2021 Law shetty, [place] - [facility] & [place] 2 09:05:05 Hypomagnesemia 869391926 Active 2021 LUBA Antunez [facility] 2 09:05:18 Anxiety 02310218 Active 2021 LUBA Antunez [facility] & [place] 2 09:05:32 Problem Notes None recorded. Procedures Surgical History Date Name Laterality Status Provider Name and Address Organization Details Recorded Time tonsillectomy completed Law OTTO [facility] & [place] 10/28/2022 09:06:30 colonoscopy completed Law OTTO [facility] & [place] 10/28/2022 09:06:42 Imaging Results None recorded. Procedure Notes None recorded. Medical Equipment None Reported. Allergies Allergen ID Allergen Name Allergen Category Reaction Reaction Severity Criticality Documentation Date Start Date Code Code System Note Provider Name and Address Organization Details Recorded Time 49744 morphine medicatio n Not available Not available Not available 10/28/2022 7052 RxNorm [facility] Antunez [facility] & [place] 2 09:02:43 98594 codeine medicatio n Not available Not available Not available 10/28/2022 2670 RxNorm [facility] & [place] 2 09:02:51 Medications Name Sig Start Date Stop Date Status Note LastModified by Organization Details LastModified Time furosemide 40 mg tablet active Not Available Not Available Not Available metformin 500 mg tablet active Not Available Not Available Not Available atorvastatin 10 mg tablet active Not Available Not Available Not Available hydrocodone 5 mg-acetamino phen 325 mg tablet active Not Available Not Available Not Available famotidine 40 mg tablet Take 1 tablet every day by oral route in the morning for 30 days. active Not Available Not Available No t Available prednisone 20 mg tablet active Not Available Not Available Not Available clopidogrel 75 mg tablet active Not Available Not Available Not Available amlodipine 5 mg tablet 10/28 completed Not Available Not Available Not Available sulfamethoxa zole 800 mg-trimethop rim 160 mg tablet active Not Available Not Available Not Available spironolacto ne 25 mg tablet active Not Available Not Available Not Available bisoprolol fumarate 10 mg tablet active Not Available Not Available No t Available magnesium oxide 400 mg (241.3 mg magnesium) tablet active Not Available Not Available Not Available amlodipine 10 mg tablet active Not Available Not Available Not Available levothyroxin e 50 mcg tablet active Not Available Not Available Not Available cephalexin 500 mg capsule TAKE 1 CAPSULE BY MOUTH EVERY 6 HOURS active Not Available Not Available No t Available pantoprazole 40 mg tablet,delay ed release Take 1 tablet every day by oral route. active Not Available Not Available No t Available sertraline 25 mg tablet active Not Available Not Available Not Available furosemide 20 mg tablet 10/28 completed Not Available Not Available Not Available ergocalcifer ol (vitamin D2) 1,250 mcg (50,000 unit) capsule active Not Available Not Available Not Available polyethylene glycol 3350 17 gram/dose oral powder active Not Available Not Available Not Available levofloxacin 750 mg tablet active Not Available Not Available Not Available colchicine 0.6 mg tablet active Not Available Not Available Not Available fluticasone propionate 50 mcg/actuatio n nasal spray,suspen jack active Not Available Not Available Not Available lisinopril 2.5 mg tablet active Not Available Not Available Not Available cholecalcife rol (vitamin D3) 125 mcg (5,000 unit) capsule active Not Available Not Available Not Available loratadine 10 mg tablet active Not Available Not Available Not Available glipizide 5 mg tablet active Not Available Not Available No t Available rosuvastatin 5 mg tablet active Not Available Not Available Not Available ProAir HFA 90 mcg/actuatio n aerosol inhaler active Not Available Not Available Not Available Symbicort 160 mcg-4.5 mcg/actuatio n HFA aerosol inhaler active Not Available Not Available Not Available Xarelto 15 mg tablet active Not Available Not Available No t Available Vitals Date Recorded Body height Body mass index (BMI) Body weight Body temperature Systolic blood pressure Diastolic blood pressure Provider Name and Address Organization Details Last Updated DateTime 2 187.96 cm 38.5 kg/m2 092602. 71 g 96.5 [degF] 135 mm[Hg] 83 mm[Hg] Phylicia VERDUZCO [facility] & [place] 2 10:38:04 Social History Question Answer Notes LastModified by Organizat ion Details LastModified Time Tobacco Smoking Status Current Every Day Smoker Law shetty, [facility] & [place] 10/28/2022 09:06:16 What Is Your Level Of Alcohol Consumption? None Information not available 10/28/2022 What Is Your Current Pack Years? 10packyears [email or web address] Information not available 10/30/2022 How Much Tobacco Do You Smoke? 1 PPW Information not available 10/30/2022 Sex: Unknown Functional Status None recorded. Mental Status None recorded. Family History Relationship Description Onset Age of this Age Resolved Age Notes LastModified by Organization Details LastModified Time Father Coronary arterioscler osis [email or web address] Not available 2021 09:05:54 Father Diabetes mellitus [email or web address] Not available 10/30 10:38:41 Mother Coronary arterioscler osis [email or web address] Not available 2021 09:05:54 Mother Diabetes mellitus [email or web address] Not available 10/30 10:38:41 Medical History No medical history recorded. Past Encounters Encounter ID Performer Location Encounter Start Date Encounter Closed Date Diagnosis/Indication Diagnosis SNOMED-CT Code Diagnosis ICD10 Code Diagnosis Note [id number] Flavio Miles Jr, MD [facility] [address] [place] [id number] 10/30/2022 10:00:46 10/30/2022 11:13:38 Edema of scrotum 98788828 N50.89 patient with generalize d penoscrota l edema of the foreskin and scrotum. This is improving with diuresis. We discussed the causes of issues likely related to his history of heart disease and congestive heart failure. We discussed continuing to wear scrotal support and observe scrotal elevation when at rest on his catheter in bed. He was reassured that this will improve. Health Concerns Section Related Observation LastModified by Organization Detai ls LastModified Time None Recorded Concern Status LastModified by Organization Details LastModified Time None Recorded Advance Directives Directive None Recorded Payers Encounter Date Sequence Insurance Name Policy Number Policy Rangel Covered Member ID Rangel Member ID Guarantor Name 10/30/2022 1 [employer]NA [facility] (MEDICAID HMO) Vishal Guerra [id number] Vishal Guerra Notes Date Note Type Note Provider Name and Address Organization Details Recorded Time 10/30/2022 text/html Patient is a 57-year-old white male referred from Dr. gaining and sent he can a for penoscrotal edema. Patient states he was hospitalized at [facility] for 4 days around [place] time. Patient has a history of congestive heart failure and was diuresed with Lasix and spironolactone. He states associated lower extremity edema had some joint soreness on the Levaquin. He states that the scrotal edema is getting better but he is still worried that his penis is buried within the edema. A scrotal ultrasound was performed in the hospital which showed possible bilateral epididymitis and cyst in the right testicle and marked scrotal swelling and edema. No masses were reported. Patient's past medical history is significant for cardiomyopathy, diabetes history. His recent creatinine was 2.6. Flavio Miles Jr, MD [address] [place] [address], [address], [place], [address], [facility] - [place] - [place] & [place] 11/03/2022 14:58:36
[2025-02-27 19:39] LABS: Alanine Aminotransferase 15 U/L (12-78); Albumin Level 3.8 g/dl (3.5-5.0); Albumin/Globulin Ratio 1.4 (1.1-1.8); Alkaline Phosphatase 125 U/L (38-126); Anion Gap 14.7 mEq/L (5-15); Aspartate Amino Transferase 20 U/L (17-59); Blood Urea Nitrogen 28 mg/dl (9-20); Calcium 7.7 mg/dl (8.4-10.2); Carbon Dioxide 23 mmol/L (22.0-30.0); Chloride 96 mmol/L (98-107); Estimated Glomerular Filt Rate 45 ml/min (>60); GFR (African American) 54 ML/MIN (>60); Globulin 2.8 g/dL (1.3-3.2); Glucose 169 mg/dl (74-100); Potassium 4.7 mmoL/L (3.5-5.1); Sodium 129 mmol/L (136-145); Total Protein,Serum 6.6 g/dl (6.3-8.2); Uric Acid 4.8 mg/dl (3.5-8.5)
== END 2025-02-27 23:59 | disposition home or self-care (01) ==
LOC: LAB.DROPOF 16:27
PROVIDERS: PCP Internal Medicine; Visit Provider Internal Medicine
DX: Z00.00 Encounter for general adult medical examination without abnormal findings (principal); Z79.899 Other long term (current) drug therapy; M10.9 Gout, unspecified
CPT/HCPCS: 80053; 84550

== ENCOUNTER 2025-03-16 15:09 | Outpatient (CLI) | payer OTHER, SELFPAY ==
[2025-03-16 17:42] LABS: Alanine Aminotransferase 14 U/L (12-78); Albumin Level 4.3 g/dl (3.5-5.0); Albumin/Globulin Ratio 1.7 (1.1-1.8); Alkaline Phosphatase 135 U/L (38-126); Anion Gap 15.5 mEq/L (5-15); Aspartate Amino Transferase 19 U/L (17-59); Bilirubin,Total 1.2 mg/dl (0.2-1.3); Blood Urea Nitrogen 21 mg/dl (9-20); Calcium 8.6 mg/dl (8.4-10.2); Carbon Dioxide 22 mmol/L (22.0-30.0); Chloride 95 mmol/L (98-107); Estimated Glomerular Filt Rate 52 ml/min (>60); GFR (African American) 63 ML/MIN (>60); Globulin 2.6 g/dL (1.3-3.2); Glucose 120 mg/dl (74-100); Potassium 4.5 mmoL/L (3.5-5.1); Sodium 128 mmol/L (136-145); Total Protein,Serum 6.9 g/dl (6.3-8.2)
--- OUTSIDE RECORDS SUMMARY | 2025-03-19 15:12 | XMS_ITS | Data Portability ---
Author Organization [facility] ADMIN Address [address] [place] [id number] Assessment No assessment recorded. Plan of Treatment [...] Details Recorded Time Gastroesophage al reflux disease 970463186 Active 2021 Vamshimarcio Conrad [place], [place] - [facility] - [place] & [place] 2 09:04:24 Coronary arterioscleros is 38524795 Active 2021 Swapnamyron [place] - [facility] [place] 2 09:04:32 Diabetes mellitus 53768319 Active 2021 Law Houston sena, [place] - [facility] & [place] 2 09:04:40 Hypertensive disorder 14991481 Active 2021 Law Houston null[place] - [facility] & [place] 2 09:04:47 Hypercholester olemia 73555669 Active 2021 Law Houston [place], [place] - [facility] & [place] 2 09:04:56 Chronic obstructive pulmonary disease 00541447 Active 2021 Law shetty, [place] - [facility] & [place] 2 09:05:05 Hypomagnesemia 013542439 Active 2021 [facility] Ant[facility] 2 09:05:18 Anxiety 42424828 Active 2021 LUBA Antunez [facility] & [place] 2 09:05:32 Problem Notes None recorded. Procedures Surgical History Date Name Laterality Status Provider Name and Address Organization Details Recorded Time tonsillectomy completed Law OTTO [facility] & [place] 10/28/2022 09:06:30 colonoscopy completed Law OTTO [facility] & [place] 10/28/2022 09:06:42 Imaging Results None recorded. Procedure Notes None recorded. Medical Equipment None Reported. Allergies Allergen ID Allergen Name Allergen Category Reaction Reaction Severity Criticality Documentation Date Start Date Code Code System Note Provider Name and Address Organization Details Recorded Time 98381 morphine medicatio n Not available Not available Not available 10/28/2022 7052 RxNorm LU[facility] Antunez [facility] & [place] 2 09:02:43 95601 codeine medicatio n Not available Not available Not available 10/28/2022 2670 RxNorm [facility] & [place] 2 09:02:51 Medications Name Sig Start Date [...] Updated DateTime 2 187.96 cm 38.5 kg/m2 518130. 71 g 96.5 [degF] 135 mm[Hg] 83 mm[Hg] Phylicia VERDUZCO [facility] & [place] 2 10:38:04 Social History Question Answer Notes LastModified by Organizat ion Details LastModified Time Tobacco Smoking Status Current Every Day Smoker Law shetty, LUBA Dennis [facility] & [place] 10/28/2022 09:06:16 What Is Your Current Pack Years? 10packyears [email or web address] Information not available 10/30/2022 How Much Tobacco Do You Smoke? 1 PPW [email or web address] Information not available 10/30/2022 Sex: Unknown Functional Status Question Answer Note LastModified by Organization D etails LastModified Time What is your level of alcohol consumption? None [email or web address] Information not available 10/28/2022 Mental Status None recorded. Family History Relationship Description Onset Age of this Age Resolved Age Notes LastModified by Organization Details LastModified Time Father Coronary arterioscler osis Not available 2021 09:05:54 Father Diabetes mellitus [email or web address] Not available 10/30 10:38:41 Mother Coronary arterioscler osis Not available 2021 09:05:54 Mother Diabetes mellitus [email or web address] Not available 10/30 10:38:41 Medical History No medical history recorded. Past Encounters Encounter ID Performer Location Encounter Start Date Encounter Closed Date Diagnosis/Indication Diagnosis SNOMED-CT Code Diagnosis ICD10 Code Diagnosis Note [id number] Flavio Miles Jr, MD [facility] [place] [address] 10/30/2022 10:00:46 10/30/2022 11:13:38 Edema of scrotum [id number] N50.89 patient with generalize d penoscrota l [...] Recorded Advance Directives Directive None Recorded Payers Insurance Date Sequence Insurance Name Policy Number Policy Rangel Covered Member ID Rangel Member ID Guarantor Name 05/20/2024 1 [employer] [facility] (MEDICAID HMO) Vishal Guerra [id number] Vishal Guerra Notes Date Note Type Note Provider Name and Address Organization Details Recorded Time 10/30/2022 text/html Patient is a 57-year-old white male referred from Dr. baker and sent he can a for penoscrotal edema. Patient states he was hospitalized at [facility] for 4 days around [place] time. Patient has a history of congestive [...] creatinine was 2.6. Flavio Miles Jr, MD [address] [place] [address], [address], [place], [address], [facility] - [facility] - [place] & [place] 11/03/2022 14:58:36
== END 2025-03-16 23:59 | disposition home or self-care (01) ==
LOC: LAB.DROPOF 03-19 15:10
PROVIDERS: PCP Internal Medicine; Visit Provider Internal Medicine
DX: M25.50 Pain in unspecified joint (principal); E87.8 Other disorders of electrolyte and fluid balance, not elsewhere classified; E83.51 Hypocalcemia; E87.1 Hypo-osmolality and hyponatremia
CPT/HCPCS: 80053; 83735; 86140

== ENCOUNTER 2025-04-05 06:06 | Day surgery (SDC) | payer OTHER, SELFPAY ==
[2025-04-04 13:26] VITALS: BMI 36.6
[2025-04-05 07:07] VITALS: BP 128/95; PULSE 68; RESP 18; TEMP 36.1; O2SAT 98
[2025-04-05] MEDS: LACTATED RINGERS 1000ML 1,000 ML 25 ML IV (07:21)
[2025-04-05 07:23] LABS: POC Glucose,Bedside 152 (70-110)
--- NOTE | 2025-04-05 07:25 | EXP.HP ---
History of Present Illness *Admission Date: 04/05/25 *Reason for visit:: Bright red blood per rectum *History of present illness: Mr. Guerra is a 59-year-old gentleman who is here for discussion of his frequent bright red rectal bleeding and his chronic constipation. The patient did have a colonoscopy with Pravin Aquino M.D. in August 2020 for. He had a prior colonoscopy in September 2021 and had poor relaxation and spasticity of the colon. He did have hemorrhoids noted. The colonoscopy last year showed fair to moderate preparation with spasticity but no polyps. There were hemorrhoidal cushions identified. The patient does state that he will have bleeding for about 3 days with marked bright red blood in the commode and on the toilet tissue. He gets this every 2 or 3 weeks. He is on Plavix and Xarelto. The patient does take senna 1 or 2 tablets at bedtime but his constipation is worsening. He takes colchicine for his gout and this can sometimes lead to looser bowel movements. He does report incomplete defecation with some excessive wiping. He has some straining, bloating and gassiness. He does get some generalized abdominal pain. He did have an EGD with Dr. Ailyn Hubbard MD in June 2023 and the report states entirely normal upper endoscopy. The patient reports no weight loss or family history of colon cancer. The patient does state that he uses oxycodone pain medication every couple of weeks because of his severe arthritis/gouty arthritis of the knees. [facility] Disclaimer: The information contained in this section may have been updated after the patient was seen, as this information can be updated by other users. Medical History (Updated 04/05/25 @ 07:28 by Erich Forrest II, MD) Encounter for pre-operative cardiovascular clearance Hyponatremia Hypocalcemia Fusion of fourth and fifth metacarpals Gout of right knee Bakers cyst Pain around toenail, left foot Scrotal swelling Epididymitis Femur fracture Scrotal edema CHF (congestive heart failure) Acute on chronic heart failure Edema Diabetes mellitus History of sinus problem Hypothyroidism Glaucoma Anxiety and depression Hypomagnesemia PTSD (post-traumatic stress disorder) Renal insufficiency GERD (gastroesophageal reflux disease) Myocardial infarct HLD (hyperlipidemia) HTN (hypertension) DVT (deep venous thrombosis) CAD (coronary artery disease) CHF (congestive heart failure) Cardiomyopathy Type 2 diabetes mellitus with complication, without long-term current use of insulin Typical angina Atypical angina Dyspnea CKD (chronic kidney disease) 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 Cough Otitis media, left Bronchitis Hyperlipidemia associated with type 2 diabetes mellitus Surgical History S/P ORIF (open reduction internal fixation) fracture History of cholecystectomy History of heart artery stent S/P drug eluting coronary stent placement Family History Other Family history of cancer Family history of diabetes mellitus type II Family history of hypertension Social History Smoking Status: Current every day smoker tobacco type: cigarettes packs per day: 1 second hand exposure: No alcohol intake: current alcohol intake frequency: a few times a month substance use type: former substance user and marijuana current occupational status: disabled Travel in the last 8 weeks?: None household members: none housing: apartment lives independently: Yes marital status: single education level: high school service: No long term: No current occupational exposures/hazards: No caffeine: Yes special veronica needs: No agree to transfusion: No do you feel safe at home: Yes victim of physical abuse: No victim of emotional abuse: No victim of sexual abuse: No would you like helpful sources: No Have you lived/traveled outside [place] in past 30 days?: No Contact w/someone who lives/traveled outside US past 30 days?: No Exposure to someone with infectious disease in past 14 days?: No Do you have a fever (greater than 100.4 F or 38 C)?: No Have you tested positive for COVID-19?: No Exposed to someone with COVID-19 in past 14 days?: No Do you have a sore throat?: No Do you have a cough?: No Do you have any weakness?: No Do you have any diarrhea?: No Are you experiencing any unusual bleeding?: No Do you have any muscle aches/pain?: No Do you have any abdominal pain?: No Are you experiencing loss of taste or smell?: No Other Medical History Have you received the Flu Vaccine for this season: Yes Have you received the Pneumonia Vaccine: No Review of Systems Review of Systems Review of systems (narrative): Negative *Cardiovascular Comments: Negative *Gastrointestinal Comments: Negative *Genitourinary Comments: Negative *Musculoskeletal Comments: Negative *Neurologic Comments: Negative Meds Home Medications and Allergies Home Medications ?Medication ?Instructions ?Recorded ?Confirmed ?Type magnesium sulfate 500 mg/mL (50 %) 2 g IV WEEKLY Supplement 09/21/22 04/04/25 History injection solution albuterol sulfate 90 mcg/actuation 1 - 2 puff inhalation Q4HP PRN 10/22/22 04/04/25 History aerosol inhaler (ProAir HFA) asthma triamcinolone acetonide 0.1 % 1 applic topical QID PRN itching 04/05/23 04/04/25 Rx topical cream #454 grams blood sugar diagnostic (OneTouch 06/03/23 04/04/25 History Verio test strips) blood-glucose meter 06/03/23 04/04/25 History lancets 33 gauge 06/03/23 04/04/25 History loratadine 10 mg tablet 10 mg PO DAILY PRN allergies 06/17/23 04/04/25 History nitroglycerin 0.4 mg sublingual 0.4 mg sublingual NEEDED PRN 09/14/23 04/04/25 Rx tablet Chest Pain #25 tabs latanoprost 0.005 % eye drops 1 drp Eye-Both DAILY 01/04/24 04/04/25 History blood-glucose sensor (psicofxpStyle #1 ea 08/01/24 04/04/25 Rx Deyvi 3 Plus Sensor device) flash glucose scanning reader #1 ea 08/01/24 04/04/25 Rx (FreeStyle Deyvi 2 [place]) ammonium lactate 12 % topical cream 1 applic topical BID dry skin, 11/28/24 04/04/25 Rx callus care #385 grams bisoprolol fumarate 10 mg tablet 10 mg PO DAILY #90 tabs 01/03/25 04/04/25 Rx clopidogrel 75 mg tablet 75 mg PO DAILY antiplatelet #90 01/03/25 04/05/25 Rx tabs probenecid 500 mg tablet 500 mg PO BID #60 tabs 01/31/25 04/04/25 Rx semaglutide 0.25 mg or 0.5 mg (2 0.5 mg (0.736 mL) SQ WEEKLY #3 mL 01/31/25 04/04/25 Rx mg/3 mL) subcutaneous pen injector (Ozempic) rivaroxaban 15 mg tablet (Xarelto) 15 mg PO Q24H #30 tabs 02/19/25 04/04/25 Rx eplerenone 25 mg tablet (Inspra) 25 mg PO DAILY #30 tabs 03/29/25 04/04/25 Rx budesonide-formoterol HFA 160 160 puff inhalation DAILY 04/04/25 04/04/25 History mcg-4.5 mcg/actuation aerosol inhaler (Symbicort) colchicine 0.6 mg tablet 0.6 mg PO DAILY 04/04/25 04/04/25 History famotidine 40 mg tablet 40 mg PO DAILY 04/04/25 04/04/25 History febuxostat 80 mg tablet 80 mg PO DAILY 04/04/25 04/04/25 History fluticasone propionate 50 1 spray intranasal DAILY 04/04/25 04/04/25 History mcg/actuation nasal spray,suspension hydroxyzine HCl 50 mg tablet 50 mg PO DAILY 04/04/25 04/04/25 History levothyroxine 50 mcg tablet 50 mcg PO DAILY 04/04/25 04/04/25 History linaclotide 145 mcg capsule 145 mcg PO DAILY 04/04/25 04/04/25 History (Linzess) magnesium chloride 64 mg 64 mg PO DAILY 04/04/25 04/04/25 History (magnesium chloride) tablet,delayed release pantoprazole 40 mg tablet,delayed 40 mg PO DAILY 04/04/25 04/04/25 History release prochlorperazine maleate 10 mg 10 mg PO DAILY 04/04/25 04/04/25 History tablet sennosides 8.6 mg tablet 8.6 mg PO DAILY 04/04/25 04/04/25 History torsemide 20 mg tablet 20 mg PO DAILY 04/04/25 04/04/25 History oxycodone-acetaminophen 5 mg-325 1 tab PO Q8H PRN pain 04/05/25 04/04/25 History mg tablet (Percocet) New Prescriptions to Start Prescriptions: Allergies Allergy/AdvReac Type Severity Reaction Status Date / Time sacubitril (From Entresto) Allergy Mild itching Verified 04/05/25 07:13 valsartan (From Entresto) Allergy Mild itching Verified 04/05/25 07:13 amiodarone AdvReac Mild Nausea Verified 04/05/25 07:13 spironolactone AdvReac Mild gynecomasti Verified 04/05/25 07:13 a Exam Data for Last 24 hours Vital signs and Labs for Last 24 Hours: Temp Pulse Resp BP Pulse Ox O2 Del Method 97.0 F L 68 18 128/95 H 98 Room Air 04/05/25 07:07 04/05/25 07:07 04/05/25 07:07 04/05/25 07:07 04/05/25 07:07 04/05/25 07:07 Laboratory Results - last 24 hr 04/05/25 07:16: POC Glucose 152 H I & O for Last 24 hours: Intake & Output 04/02/25 04/03/25 04/04/25 04/05/25 23:59 23:59 23:59 23:59 Weight 248 lb *Routine HEENT Exam Head: Present normocephalic Eye: Present EOMI and PERRL ENT: Present mucous membranes moist *Routine Neck Exam Neck: Present supple *Routine Respiratory Exam Respiratory: Present CTA bilaterally *Routine Cardiovascular Exam Cardiovascular: Present RRR *Routine Abdominal Exam Abdominal: Present soft and normoactive bowel sounds; Absent tenderness *Routine Rectal Exam Rectal:: deferred *Routine Genitalia Exam Genitalia:: deferred *Routine Extremities Exam Extremities: Absent cyanosis, clubbing or edema *Routine Skin Exam Skin: Present warm; Absent rash *Routine Neurological Exam Neurological: Present alert and oriented X3 Assessment and Plan *Assessment and plan (1) Bleeding internal hemorrhoids: Status: Acute Category: Medical Code(s): K64.8 - Other hemorrhoids (2) Incomplete defecation: Status: Acute Category: Medical Code(s): R15.0 - Incomplete defecation (3) Chronic idiopathic constipation: Status: Acute Category: Medical Code(s): K59.04 - Chronic idiopathic constipation (4) Bloating: Status: Acute Category: Medical Code(s): R14.0 - Abdominal distension (gaseous) (5) Bright red rectal bleeding: Status: Acute Category: Medical Code(s): K62.5 - Hemorrhage of anus and rectum Plan A/P: 1. Intermittent marked rectal bleeding presumably secondary to hemorrhoids with chronic constipation, incomplete defecation and bloating is the preprocedural diagnosis. The patient will be anesthetized/sedated using MAC sedation. The patient has been seen and examined. Cardiac and lung assessment prior to the examination is stable. Proceed with planned diagnostic colonoscopy.
--- NOTE | 2025-04-05 07:34 | HMH.PROCNOTE ---
[facility] Procedure Note Date: 04/05/25 Time: 07:47 Procedure Note:: Colonoscopy Procedure Report: Colonoscopy with hemorrhoid band ligation Endoscopist: Erich Forrest II, MD Referring physician: Mingo Weiss DO Date of Procedure: April 05, 2025 Equipment: Olympus 190 variable stiffness pediatric colonoscope Sedation: MAC sedation Indication: Mr. Guerra is a 60-year-old gentleman who is here for diagnostic colonoscopy because of frequent bright red rectal bleeding and his chronic constipation. The patient did have a colonoscopy with Pravin Aquino M.D. in August 2024. He had a prior colonoscopy in September 2021 and had poor relaxation and spasticity of the colon. He did have hemorrhoids noted. The colonoscopy last year showed fair to moderate preparation with spasticity but no polyps. There were hemorrhoidal cushions identified. The patient does state that he will have bleeding for about 3 days with marked bright red blood in the commode and on the toilet tissue. He gets this every 2 or 3 weeks. He is on Plavix and Xarelto. The patient does take senna 1 or 2 tablets at bedtime but his constipation is worsening. He takes colchicine for his gout and this can sometimes lead to looser bowel movements. He does report incomplete defecation with some excessive wiping. He has some straining, bloating and gassiness. He does get some generalized abdominal pain. He did have an EGD with Dr. Ailyn Hubbard MD in June 2023 and the report states entirely normal upper endoscopy. The patient reports no weight loss or family history of colon cancer. The patient does state that he uses oxycodone pain medication every couple of weeks because of his severe arthritis/gouty arthritis of the knees. Procedure: Prior to the procedure, a history and physical exam was performed, and patient's medications and allergies were reviewed. The risks, benefits and alternatives of the sedation and procedure were discussed with the patient. All questions were answered and informed consent was obtained. The patient was brought to the procedure room. Patient identification and proposed procedure were verified by the physician and the nurse. The patient was placed in a left lateral decubitus position and the scope was passed under direct vision. Throughout the procedure, the patient's blood pressure, pulse, and oxygen saturations were monitored continuously. The colonoscopy was accomplished without difficulty. The patient tolerated the procedure well. Findings: On digital rectal examination there was normal rectal tone. There were no external hemorrhoids. The colonoscope was introduced through the anal canal to the rectum and advanced to the cecum. The ileocecal valve and appendiceal orifice were identified. The scope was advanced a short distance into the ileum which appeared grossly normal. The scope was then withdrawn into the colon. The cecum, ascending, transverse, descending, sigmoid and rectum were grossly normal. There was mild melanosis coli throughout the colon. Upon retroflexion within the rectum there were grade 2-3 internal hemorrhoids. The hemorrhoids were banded using 3 bands with excellent ligation effect. The preparation was excellent throughout with [place] Preparation Score of 9. The cecal time was 10 minutes. Impression: 1. Mild melanosis coli but otherwise normal colonoscopy with intubation of the terminal ileum 2. Grade 2-3 internal hemorrhoids status post band ligation x 3 Plan: His hemorrhoidal bleeding is exacerbated by anticoagulation. I would recommend that he continue the fiber bowel regimen (combined MiraLAX plus Konsyl). The patient also has some opioid-induced constipation and does take Percocet. I am going to initiate Relistor or Movantik.
[2025-04-05 08:02] VITALS: BP 108/71; PULSE 71; RESP 16; TEMP 36.1; O2SAT 89
[2025-04-05 08:12] VITALS: BP 107/74; PULSE 73; RESP 16; O2SAT 91
[2025-04-05] MEDS: OXYCODONE 5MG W/APAP 325MG TABLET 1 EACH PO (08:21)
[2025-04-05 08:22] VITALS: BP 113/67; PULSE 74; RESP 16; O2SAT 94
--- NOTE | 2025-04-05 08:23 | P.PNANES_ITS ---
[facility] Disclaimer: The information contained in this section may have been updated after the patient was seen, as this information can be updated by other users. Medical History (Updated 04/05/25 @ 07:28 by Erich Forrest II, MD) Encounter for pre-operative cardiovascular clearance Hyponatremia Hypocalcemia Fusion of fourth and fifth metacarpals Gout of right knee Bakers cyst Pain around toenail, left foot Scrotal swelling Epididymitis Femur fracture Scrotal edema CHF (congestive heart failure) Acute on chronic heart failure Edema Diabetes mellitus History of sinus problem Hypothyroidism Glaucoma Anxiety and depression Hypomagnesemia PTSD (post-traumatic stress disorder) Renal insufficiency GERD (gastroesophageal reflux disease) Myocardial infarct HLD (hyperlipidemia) HTN (hypertension) DVT (deep venous thrombosis) CAD (coronary artery disease) CHF (congestive heart failure) Cardiomyopathy Type 2 diabetes mellitus with complication, without long-term current use of insulin Typical angina Atypical angina Dyspnea CKD (chronic kidney disease) 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 Cough Otitis media, left Bronchitis Hyperlipidemia associated with type 2 diabetes mellitus Surgical History S/P ORIF (open reduction internal fixation) fracture History of cholecystectomy History of heart artery stent S/P drug eluting coronary stent placement Family History Other Family history of cancer Family history of diabetes mellitus type II Family history of hypertension Social History Smoking Status: Current every day smoker tobacco type: cigarettes packs per day: 1 second hand exposure: No alcohol intake: current alcohol intake frequency: a few times a month substance use type: former substance user and marijuana current occupational status: disabled Travel in the last 8 weeks?: None household members: none housing: apartment lives independently: Yes marital status: single education level: high school service: No correction: No current occupational exposures/hazards: No caffeine: Yes special veronica needs: No agree to transfusion: No do you feel safe at home: Yes victim of physical abuse: No victim of emotional abuse: No victim of sexual abuse: No would you like helpful sources: No Have you lived/traveled outside [place] in past 30 days?: No Contact w/someone who lives/traveled outside [place] past 30 days?: No Exposure to someone with infectious disease in past 14 days?: No Do you have a fever (greater than 100.4 F or 38 C)?: No Have you tested positive for COVID-19?: No Exposed to someone with COVID-19 in past 14 days?: No Do you have a sore throat?: No Do you have a cough?: No Do you have any weakness?: No Do you have any diarrhea?: No Are you experiencing any unusual bleeding?: No Do you have any muscle aches/pain?: No Do you have any abdominal pain?: No Are you experiencing loss of taste or smell?: No [facility] Anesthesia Checklist Patient Identification Patient Identification: Arm Band and Verbal (Name & ) Structural Data Admitted From: Home Planned Operative Procedure/s: Colonoscopy Verified Documents: Surgical Consent NPO Status Verified Time NPO: 00:00 Chart Verification Results Verified: None Additional verifications Anesthesia Reactions: No Hx Blood Transfusions: No Blood Transfusion Reaction: No Airway Assessment Mallampati Score:: Class II Dentition: Dentures-good fit Neurological Assessment Level of Consciousness: Awake, Alert and Appropriate Hx Seizures: No Numbness or tingling in extremities: No Anesthesia Plan Anesthesia Plan: Verified ASA Class: III Anesthesia Type: MAC
[2025-04-05 08:32] VITALS: BP 108/77; PULSE 73; RESP 16; O2SAT 94
[2025-04-05 09:20] LABS: Prostate Specific Ag, Diagnost 0.287 ng/ml (0.0-4.0)
[2025-04-05 10:34] LABS: Vitamin B12 396 pg/mL (239-931)
[2025-04-05 10:50] LABS: Folate 3.85 ng/mL
== END 2025-04-05 08:40 | disposition home or self-care (01) ==
PROVIDERS: PCP Internal Medicine; Visit Provider Internal Medicine Gastroenterology
PROC: 0DJD8ZZ Inspection of Lower Intestinal Tract, Via Natural or Artificial Opening Endoscopic (ICD-10-PCS; CPT 45378; principal; 2025-04-05 07:30)
DX: K64.1 Second degree hemorrhoids (principal); K64.2 Third degree hemorrhoids; K59.04 Chronic idiopathic constipation; K63.89 Other specified diseases of intestine; I25.2 Old myocardial infarction; F17.210 Nicotine dependence, cigarettes, uncomplicated; Z79.02 Long term (current) use of antithrombotics/antiplatelets; Z79.899 Other long term (current) drug therapy; Z88.8 Allergy status to other drugs, medicaments and biological substances; Z86.718 Personal history of other venous thrombosis and embolism; Z90.49 Acquired absence of other specified parts of digestive tract; Z80.0 Family history of malignant neoplasm of digestive organs; Z79.890 Hormone replacement therapy; Z79.51 Long term (current) use of inhaled steroids
CPT/HCPCS: 45398; 36415; 82607; 82746; 82962; 84153; C1889; J2405; J2704; J7120

== ENCOUNTER 2025-04-18 16:10 | Outpatient (CLI) | payer OTHER, SELFPAY ==
[2025-04-18 19:03] LABS: Alanine Aminotransferase 11 U/L (12-78); Albumin Level 3.9 g/dl (3.5-5.0); Albumin/Globulin Ratio 1.3 (1.1-1.8); Alkaline Phosphatase 145 U/L (38-126); Anion Gap 14.1 mEq/L (5-15); Aspartate Amino Transferase 21 U/L (17-59); Bilirubin,Total 1.4 mg/dl (0.2-1.3); Blood Urea Nitrogen 15 mg/dl (9-20); Calcium 8.3 mg/dl (8.4-10.2); Carbon Dioxide 28 mmol/L (22.0-30.0); Chloride 92 mmol/L (98-107); Estimated Glomerular Filt Rate 48 ml/min (>60); GFR (African American) 58 ML/MIN (>60); Globulin 3.1 g/dL (1.3-3.2); Glucose 117 mg/dl (74-100); Potassium 4.1 mmoL/L (3.5-5.1); Sodium 130 mmol/L (136-145); Uric Acid 11.3 mg/dl (3.5-8.5)
[2025-04-18 19:36] LABS: Ferritin 26.1 ng/ml (17.9-464)
--- OUTSIDE RECORDS SUMMARY | 2025-04-19 10:01 | XMS_ITS | Clinical Summary ---
Author Organization Healthcare Address [address] [place] [address] Care Team Providers Care Catering Convention Services Manager Name Role Phone Chacho Gutierrez MD Primary Care Provider + [phone] Allergies Active Allergy Reactions Criticality Noted Date Comments Codeine Itching Medium 07/13/2018 Medications Aspirin Buf,CaCarb-MgCa rb-MgO, 81 MG tablet TAKE 1 TABLET DAILY. 8 Active bisoprolol (Zebeta) 5 MG tablet TAKE 1 TABLET ONCE DAILY. 8 Active clopidogrel (Plavix) 75 MG tablet Take 1 tablet (75 mg) by mouth 1 (one) time each morning. 8 Active cholecalciferol (Vitamin D-3) 125 MCG (5000 UT) capsule 9 Active levothyroxine (Synthroid, Levoxyl) 50 MCG tablet 8 Active lisinopril 10 MG tablet TAKE 1/2 TABLET DAILY. 9 Active nitroglycerin (Nitrostat) 0.4 MG SL tablet 9 Active pantoprazole (Protonix) 40 MG EC tablet TAKE 1 TABLET DAILY. 8 Active albuterol 108 (90 Base) MCG/ACT inhaler Inhale 2 puffs every 6 (six) hours if needed. Active allopurinol (Zyloprim) 300 MG tablet Take 1 tablet (300 mg) by mouth 1 (one) time each day. Active budesonide-form oterol (Symbicort) 160-4.5 MCG/ACT inhaler Inhale 2 puffs 2 (two) times a day. Rinse mouth with water after use to reduce aftertaste and incidence of candidiasis. Do not swallow. Active famotidine (Pepcid) 40 MG tablet Take by mouth 2 (two) times a day. Active fluticasone (Flonase) 50 MCG/ACT nasal spray Administer 1 spray into each nostril 1 (one) time each day. Shake gently. Before first use, prime pump. After use, clean tip and replace cap. Active glipiZIDE XL (Glucotrol XL) 5 MG 24 hr tablet Take 1 tablet (5 mg) by mouth 2 (two) times a day. Do not crush, chew, or split. Active loratadine (Claritin) 10 MG tablet Take 1 tablet (10 mg) by mouth 1 (one) time each day. Active magnesium oxide (Mag-Ox) 400 mg tablet 1 tablet (400 mg) 2 (two) times a day. Active polyethylene glycol (Miralax) 17 g packet Take 17 g by mouth 1 (one) time each day. Active rosuvastatin (Crestor) 20 MG tablet Take 1 tablet (20 mg) by mouth every night. Active spironolactone (Aldactone) 25 MG tablet Take 1 tablet (25 mg) by mouth 1 (one) time each day. Active torsemide (Demadex) 100 MG tablet Take 0.5 tablets (50 mg) by mouth 1 (one) time each day. Active amLODIPine (Norvasc) 10 MG tablet Active linaCLOtide (Linzess) 145 MCG capsule Take 1 capsule (145 mcg) by mouth 1 (one) time each day in the evening. Active sacubitril-vals paco (Entresto) 24-26 MG tablet Take 1 tablet by mouth 2 (two) times a day. Active amiodarone (Pacerone) 200 MG tablet Take 1 tablet (200 mg) by mouth 2 (two) times a day. Active bisoprolol (Zebeta) 10 MG tablet Take 1 tablet (10 mg) by mouth 1 (one) time each day in the evening. Active rivaroxaban (Xarelto) 15 MG tablet Take 1 tablet (15 mg) by mouth 2 (two) times a day with meals. Take with food. Active ammonium lactate (Amlactin) 12 % cream 3 Active cephalexin (Keflex) 500 MG capsule Active colchicine 0.6 MG tablet Active dicyclomine (Bentyl) 10 MG capsule 3 Active HYDROcodone-leonard taminophen ([place]) 5-325 MG tablet Active hydrocortisone 2.5 % cream 3 Active hydrOXYzine HCl (Atarax) 25 MG tablet 3 Active ketoconazole (NIZOral) 2 % shampoo 3 Active latanoprost (Xalatan) 0.005 % ophthalmic solution 3 Active levoFLOXacin (Levaquin) 750 MG tablet Active LORazepam (Ativan) 1 MG tablet 3 Active Slow Magnesium/Calci um 70-117 MG EC tablet 4 Active methocarbamol (Robaxin) 750 MG tablet 3 Active ondansetron (Zofran) 4 MG tablet 3 Active Elidel 1 % cream 3 Active predniSONE (Deltasone) 20 MG tablet Active prochlorperazin e (Compazine) 10 MG tablet 4 Active promethazine (Phenergan) 25 MG tablet 3 Active Ozempic, 0.25 or 0.5 MG/DOSE, 2 MG/3ML solution pen-injector 3 Active Ozempic, 0.25 or 0.5 MG/DOSE, 2 MG/1.5ML solution pen-injector inj. 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 12/14/2023 CKD (chronic kidney disease) stage 3, GFR 30-59 ml/min 07/06/2019 CHINTAN (acute kidney injury) 09/08/2018 Diabetes mellitus 09/01/2018 Hypertension 09/01/2018 Hypocalcemia 06/01/2018 Hypomagnesemia 06/01/2018 Renal insufficiency 06/01/2018 Immunizations Immunization Administration Dates Next Due Hep A, Adult 04/29/2019,10/26/2018 Influenza, injectable, quadrivalent 09/07/2017,1 ,08/28/2015 Influenza, injectable, quadr ivalent, preservative free 11/06/2021,09/06/2020,08/30/2019,10/26 Pneumococcal Conjugate PCV 13 09/07/2017 Pneumococcal Polysaccharide PPV23 09/07/2017 TD (adult), 2 Lf tetanus tox oid, preservative free, adsorbed 01/05/1997 Zoster, Recombinant 09/06/2020 Family History Medical History Relation Name Comments Cardiac disorder Father Diabetes Father Hyperlipidemia Father Hypertension Father Kidney disease Father Cardiac disorder Mother Hyperlipidemia Mother Osteoporosis Mother Anesthesia problems Neg Hx Malig Hyperthermia Neg Hx Relation Name Status Comments Father Mother Social History Tobacco Use Types Packs/Day Years Used Date Smoking Tobacco: Every Day Cigarettes 0.5 39.5 Started: 1985 Passive Smoke Exposure: Current Smokeless Tobacco: Never Tobacco Cessation:Ready to Q uit: Not Asked; Counseling Given: Not Answered Comments:Hx 1 PPD, now currently less than 1/2 PPD. Alcohol Use Standard Drinks/Week Comments Yes 0 (1 standard drink = 0.6 oz pur e alcohol) 3 social cocktailes/ week. PHQ-2 Answer Date Recorded Patient Health Questionnaire-2 Score 0 12/14/2023 Sex and Gender Information Value Date Recorded Sex Assigned at Not on file Legal Sex Male 7:52 PM EDT Gender Identity Not on file Sexual Orientation Not on file Last Filed Vital Signs Vital Sign Reading Time Taken Comments Blood Pressure 153/94 03/03/2024 10:05 AM EDT Pulse 61 03/03/2024 10:05 AM EDT Temperature 36.1 C (96.9 F) 03/03/2024 10:05 AM EDT Respiratory Rate 15 01/28/2024 11:45 AM EDT Oxygen Saturation 98% 03/03/2024 10:05 AM EDT Inhaled Oxygen Concentration - - Weight 122 kg (270 lb) 03/03/2024 10:05 AM EDT Height 175.3 cm (5' 9 ) 03/03/2024 10:05 AM EDT Body Mass Index 39.87 03/03/2024 10:05 AM EDT Plan of Treatment Health Maintenance Due Date Last Done Comments [facility]-Diabetes: Hemoglobin A1C 1966 [facility]-HIV Screening 1966 [facility]-Hepatitis C Screening 1966 [facility]-/Child/Adol SDOH Screenings 1966 Diabetes: Dental Exam 1976 [facility]- SDOH Screenings 1984 [facility]-Adult SDOH Screenings 1984 [facility]-Hepatitis B Vaccines (1 of 3 - 19+ 3-dose series) 1985 [facility]-DTaP,Tdap,and Td Vaccines (1 - Tdap) 01/06/1997 01/05/1997 CT Colonography 2011 Colonoscopy 2011 FIT-DNA 2011 FIT 2011 FOBT 2011 Sigmoidoscopy 2011 [facility]-Colorectal Cancer Screening 2011 [facility]-Zoster Vaccines (2 of 2) 11/01/2020 09/06/2020 UKY-Pneumococcal Vaccine: 50+ Years (3 of 3 - PCV20 or PCV21) 09/07/2022 09/07/2017, 09/07/2017 [id number] Vaccine ( - season) 2024 11/06/2021, 02/12/2021, 01/15/2021 [facility]-Depression Screening 12/14/2024 12/14/2023 [facility]-Influenza Vaccine (Season Ended) 2025 11/06/2021, 09/06/2020, 08/30/2019, Additional history exists [facility]-Hepatitis A Vaccines Aged Out 04/29/2019, 10/02 No longer eligible based on patient's age to complete this topic [facility]-Obesity Intervention Completed 024, 03/03/2024, 02/15/2024, Additional history exists HPV Vaccines Aged Out No longer eligi ble based on patient's age to complete this topic UKY-HIB Vaccines Aged Out No longer e ligible based on patient's age to complete this topic UKY-IPV Vaccines Aged Out No longer e ligible based on patient's age to complete this topic UKY-Rotavirus Vaccines Aged Out No lo nger eligible based on patient's age to complete this topic Medical Devices Implanted Type Area Crop Or Grain Farmer Device Identifier Shelf Expiration Date Model / Serial / Lot Unknown Femur K-Wire Dual Trocar 035 X 152mm - [id number] Implanted:Qty: 1 on 01/28/2024 by Juan Francisco MD at [facility] Left: Little [employer]inger [id number] 12/21/2026 [id number] / / [id number] Insurance [facility] MEDICAID Care Teams Catering Convention Services Manager Relationship Specialty Start Date End Date Chacho Gutierrez MD [address] [place] [address] PCP - General 03/14/21
== END 2025-04-18 23:59 | disposition home or self-care (01) ==
LOC: LAB.DROPOF 04-19 09:59
PROVIDERS: PCP Internal Medicine; Visit Provider Internal Medicine
DX: E87.1 Hypo-osmolality and hyponatremia (principal); E87.8 Other disorders of electrolyte and fluid balance, not elsewhere classified; M10.9 Gout, unspecified; G25.81 Restless legs syndrome
CPT/HCPCS: 80053; 82728; 84550

== ENCOUNTER 2025-06-07 11:39 | Outpatient (CLI) | payer OTHER, SELFPAY ==
--- OUTSIDE RECORDS SUMMARY | 2025-06-07 11:42 | XMS_ITS | Encounter Summary ---
Author Organization Healthcare Address [address] [place] [address] Care Team Providers Care Substitute School Nurse Name Role Phone Chacho Gutierrez MD Primary Care Provider [phone] Encounter Details Date Type Department Care Team (Late st Contact Info) Description 04/27/2025 Orders Only [facility] [address] [place] [address] Vibha Huber Stage 3 chronic kidney disease, unspecified whether stage 3a or 3b CKD (CMS/HCC) (Primary Dx); Vitamin D insufficiency Social History Tobacco Use Types Packs/Day Years Used Date Smoking Tobacco: Every Day Cigarettes 0.5 39.6 Started: 1985 Passive Smoke Exposure: Current Smokeless Tobacco: Never Comments:Hx 1 PPD, now curre ntly less than 1/2 PPD. Alcohol Use Standard Drinks/Week Comments Yes 0 (1 standard drink = 0.6 oz pur e alcohol) 3 social cocktailes/ week. PHQ-2 Answer Date Recorded Patient Health Questionnaire-2 Score 0 12/14/2023 Sex and Gender Information Value Date Recorded Sex Assigned at Not on file Legal Sex Male 7:52 PM EDT Gender Identity Not on file Sexual Orientation Not on file documented as of this encounter Plan of Treatment Upcoming Encounters Date Type Department Care Team (Late st Contact Info) Description 07/11/2025 1:00 PM EDT Office Visit Professional [facility] Nephrology, Bone & Mineral Metabolism [address], [address] [place] [address] Paolo Grover MD [address] [place] [phone] Scheduled Orders Name Type Priority Associated Diagnoses Orde r Schedule Renal Function Panel, Plasma Lab Routine Stage 3 chronic kidney disease, unspecified whether stage 3a or 3b CKD (CMS/HCC) Expected: 04/27/2025 (Approximate), Expires: 10/27/2026 CBC and Differential Lab Routine Stage 3 chronic kidney disease, unspecified whether stage 3a or 3b CKD (CMS/HCC) Expected: 04/27/2025 (Approximate), Expires: 10/27/2026 Creatinine, Random, Urine Lab Routine Stage 3 chronic kidney disease, unspecified whether stage 3a or 3b CKD (CMS/HCC) Expected: 04/27/2025 (Approximate), Expires: 10/27/2026 Protein, Random, Urine with Creatinine Lab Routine Stage 3 chronic kidney disease, unspecified whether stage 3a or 3b CKD (CMS/HCC) Expected: 04/27/2025 (Approximate), Expires: 10/27/2026 Urinalysis with reflex microscopic (Culture NOT Included) Lab Routine Stage 3 chronic kidney disease, unspecified whether stage 3a or 3b CKD (CMS/HCC) Expected: 04/27/2025 (Approximate), Expires: 10/27/2026 PTH Intact Total Lab Routine Stage 3 chronic kidney disease, unspecified whether stage 3a or 3b CKD (CMS/HCC) Vitamin D insufficiency Expected: 04/27/2025 (Approximate), Expires: 10/27/2026 Vitamin D 25 Hydroxy Lab Routine Stage 3 chronic kidney disease, unspecified whether stage 3a or 3b CKD (CMS/HCC) Vitamin D insufficiency Expected: 04/27/2025 (Approximate), Expires: 10/27/2026 documented as of this encounter Visit Diagnoses Diagnosis Stage 3 chronic kidney disease, unspecified whether stage 3a or 3b CKD (CMS/HCC)- Primary Vitamin D insufficiency documented in this encounter Additional Health Concerns Assessment Noted Time A Body Mass Index follow-up plan has been documented for the patient 03/03/2024 12:11 PM EDT documented as of this encounter Care Teams Substitute School Nurse Relationship Specialty Start Date End Date Chacho Gutierrez MD [address] [place] [address] PCP - General 03/14/21 documented as of this encounter
--- OUTSIDE RECORDS SUMMARY | 2025-06-07 11:42 | XMS_ITS | Clinical Summary ---
Author Organization Healthcare Address [address] [place] [address] Care Team Providers Care Parent Partner Name Role Phone Chacho Gutierrez MD Primary Care Provider + [phone] Allergies Active Allergy Reactions Criticality Noted Date [...] 10 MG capsule 3 Active HYDROcodone-leonard taminophen ([place]) 5-325 MG tablet Active hydrocortisone 2.5 % [...] Hypocalcemia 06/01/2018 Hypomagnesemia 06/01/2018 Renal insufficiency 06/01/2018 Encounters Date Type Department Care Team Description 04/27/2025 Orders Only [facility] [address] [place] [address] Vibha Huber Stage 3 chronic kidney disease, unspecified whether stage 3a or 3b CKD (CMS/[facility]) (Primary Dx); Vitamin D insufficiency from Last 3 Months Immunizations Immunization Administration Dates Next Due Hep [...] 03/03/2024 10:05 AM EDT Plan of Treatment Upcoming Encounters Date Type Department Care Team (Late st Contact Info) Description 07/11/2025 1:00 PM EDT Office Visit Professional [facility] Nephrology, Bone & Mineral Metabolism [address], [address] [place] [address] Paolo Grover MD [address] [place] [address] Health Maintenance Due Date Last Done Comments [facility]-Diabetes: Hemoglobin A1C 1966 [facility]-HIV Screening 1966 [facility]-Hepatitis C Screening 1966 [facility]-Infant/Child/Adol SDOH Screenings 1966 Diabetes: Dental Exam 1976 [...] - PCV20 or PCV21) 09/07/2022 09/07/2017, 09/07/2017 [id number] Vaccine ( - season) 2024 11/06/2021, 02/12/2021, 01/15/2021 [facility]-Depression Screening 12/14/2024 12/14/2023 [facility]-Influenza Vaccine (#1) 07/02/202511/06, 09/06/2020, 08/30/2019, Additional history exists [facility]-Hepatitis A [...] this topic Medical Devices Implanted Type Area Outsole Skiver Device Identifier Shelf Expiration Date Model / Serial / Lot Unknown Femur K-Wire Dual Trocar 035 X 152mm - [id number] Implanted:Qty: 1 on 01/28/2024 by Juan Francisco MD at [facility] Left: [employer] [id number] 1 12/21/2026 [id number] / / [id number] Insurance [facility] MEDICAID Care Teams Parent Partner Relationship Specialty Start Date End Date Chacho Gutierrez MD NPI: [id number] [address] [place], [place] [id number] PCP - General 03/14/21
--- OUTSIDE RECORDS SUMMARY | 2025-06-07 11:42 | XMS_ITS | Clinical Summary ---
Author Organization [facility] yste Address [address] [place] [address] Care Team Providers Care Orthodontic Technician Name Role Phone Mingo Weiss Primary Care Provider + Social History Tobacco Use Types Packs/Day Years Used Date Smoking Tobacco: Never Assessed Abuse Screen Answer Date Recorded Unsafe at Home or Work/School Not on file Feels Threatened by Someone? Not on file 07/2023 Does Anyone Keep You from Co ntacting Others or Doint Things Outside the Home? Not on file 08/09/2023 Physical Sign of Abuse Present Not on file 1 Housing Stability Answer Date Recorded Current Living Arrangements Not on file 07/2023 Potentially Unsafe Housing Conditions Not on jai e 08/09/2023 Family and Community Support Answer Victor Manuel e Recorded Help with Day-to-Day Activities Not on file 08/09/2023 Lonely or Isolated Not on file 08/09/2023 Employment Answer Date Recorded Do you want help finding or keeping work or a analy b? Not on file 08/09/2023 Disabilities Answer Date Recorded Concentrating, Remembering, or Making Decisions Difficulty Not on file 08/09/2023 Doing Errands Independently Difficulty Not on fi le 08/09/2023 Education Answer Date Recorded Help with school or training? Not on file Preferred Language Not on file 08/09/2023 Sex and Gender Information Value Date Recorded Sex Assigned at Not on file Legal Sex Male 11:51 AM EDT Gender Identity Not on file Sexual Orientation Not on file Plan of Treatment Health Maintenance Due Date Last Done Comments ANNUAL PHYSICAL 1966 HEPATITIS C SCREENING 1966 TDAP/TD VACCINES (1 - Tdap) 1985 COLOGUARD 2011 COLON CANCER SCREENING 5 YEAR SIGMOIDOSCOPY 2011 COLONOSCOPY 2011 [address]ECTAL CANCER SCREENING 2011 CT COLONOGRAPHY 2011 FECAL OCCULT BLOOD TEST 2011 FIT Testing (1 year) 2011 Pneumococcal Vaccine 50+ (1 of 1 - PCV) 2016 ZOSTER VACCINE (1 of 2) 2016 COVID-19 Vaccine (1 - 2023- season) 2024 INFLUENZA VACCINE 08/01/2025 Insurance [facility] Care Teams Orthodontic Technician Relationship Specialty Start Date End Date Mingo Weiss DO [address] [place] [address] PCP - General Internal Medicine 03/09/24
[2025-06-07 12:10] VITALS: BP 133/86; PULSE 76; RESP 16; TEMP 36.4; O2SAT 100
[2025-06-07] MEDS: SODIUM CHLORIDE 0.9% 10ML FLUSH SYRINGE 10 ML IV (12:10)
[2025-06-07] MEDS: MAGNESIUM SULFATE IN WATER 2 GM/50 ML PIGGYBACK IV ×3 (12:11→15:03)
[2025-06-07 12:50] LABS: Chloride 90 mmol/L (98-107); Sodium 124 mmol/L (136-145)
[2025-06-07 12:51] LABS: Potassium 3.8 mmoL/L (3.5-5.1)
[2025-06-07 12:54] LABS: Anion Gap 12.8 mEq/L (5-15); Blood Urea Nitrogen 14 mg/dl (9-20); Calcium 8.3 mg/dl (8.4-10.2); Carbon Dioxide 25 mmol/L (22.0-30.0); Creatinine,Serum 1.30 mg/dl (0.66-1.25); Estimated Glomerular Filt Rate 57 ml/min (>60); GFR (African American) 68 ML/MIN (>60); Glucose 165 mg/dl (74-100)
[2025-06-07 12:56] LABS: Magnesium 0.6 mg/dl (1.6-2.3)
[2025-06-07 13:10] VITALS: BP 149/72; PULSE 68; RESP 14; O2SAT 99
[2025-06-07] MEDS: ONDANSETRON 4MG/2ML VIAL 4 MG (13:50)
[2025-06-07 14:10] VITALS: BP 138/79; PULSE 75; RESP 14; O2SAT 99
[2025-06-07 14:12] LABS: NT Pro Brain Natriuretic Pep. 17800 pg/mL (0-125)
[2025-06-07 15:10] VITALS: BP 128/77; PULSE 72; RESP 16; O2SAT 98
[2025-06-07 16:10] VITALS: BP 125/80; PULSE 69; RESP 16; TEMP 36.6; O2SAT 99
== END 2025-06-07 16:15 | disposition home or self-care (01) ==
LOC: INF 11:40
PROVIDERS: PCP Internal Medicine; Visit Provider Internal Medicine
DX: E83.42 Hypomagnesemia (principal)
CPT/HCPCS: 36415; 80048; 83735; 83880; 96365; 96366; 96375; J2405; J3475

== ENCOUNTER 2025-06-14 10:54 | Outpatient (CLI) | payer OTHER, SELFPAY ==
--- OUTSIDE RECORDS SUMMARY | 2025-06-14 10:58 | XMS_ITS | Encounter Summary ---
Author Organization Healthcare Address [address] [place] [address] Care Team Providers Care Pilot Plant Operator Helper Name Role Phone Chacho Gutierrez MD Primary Care Provider [phone] Encounter Details Date Type Department Care Team (Late st Contact Info) Description 04/27/2025 Orders Only [facility] [address] [place] [address] Vibha Huber Stage 3 chronic [...] 07/11/2025 1:00 PM EDT Office Visit Professional [facility] Nephrology, Bone & Mineral Metabolism [address] [facility] [address] [facility], [address] [place] [address] Paolo Grover MD [address] [place] [phone] Scheduled Orders Name Type Priority Associated Diagnoses [...] documented as of this encounter Care Teams Pilot Plant Operator Helper Relationship Specialty Start Date End Date Chacho Gutierrez MD [address] [place] [address] PCP - General 03/14/21 documented as of this encounter
--- OUTSIDE RECORDS SUMMARY | 2025-06-14 10:58 | XMS_ITS | Clinical Summary ---
Author Organization Healthcare Address [address] [place] [address] Care Team Providers Care Endodontics Dentist Name Role Phone Chacho Gutierrez MD Primary Care Provider + [phone] Allergies Active Allergy Reactions Criticality Noted Date [...] 10 MG capsule 3 Active HYDROcodone-leonard taminophen ([place]) 5-325 MG tablet Active hydrocortisone 2.5 % [...] Department Care Team Description 04/27/2025 Orders Only [address] [place] [address] Vibha Huber Stage 3 chronic kidney disease, unspecified whether stage 3a or 3b CKD (CMS/[facility]) (Primary Dx); Vitamin D insufficiency from Last [...] 07/11/2025 1:00 PM EDT Office Visit Professional [facility] Nephrology, Bone & Mineral Metabolism [address], [address] [place] [address] Paolo Grover MD [address] [place] [address] Health Maintenance Due Date Last [...] - PCV20 or PCV21) 09/07/2022 09/07/2017, 09/07/2017 [id number] Vaccine ( - season) 2024 11/06/2021, 02/12/2021, [...] this topic Medical Devices Implanted Type Area Real Estate Executive Assistant Device Identifier Shelf Expiration Date Model / Serial / Lot Unknown Femur K-Wire Dual Trocar 035 X 152mm - [id number] Implanted:Qty: 1 on 01/28/2024 by Juan Francisco MD at [facility] Left: [employer]inger [id number] 1 12/21/2026 [id number] / / [id number] Insurance [facility] MEDICAID Care Teams Endodontics Dentist Relationship Specialty Start Date End Date Chacho Gutierrez MD NPI: [id number] [place], [place] [id number] PCP - General 03/14/21
--- OUTSIDE RECORDS SUMMARY | 2025-06-14 10:58 | XMS_ITS | Clinical Summary ---
Author Organization [facility] yste Address [address] [place] [address] Care Team Providers Care Supervisor Cell Room Name Role Phone Mingo Weiss Primary Care [...] 2023- season) 2024 INFLUENZA VACCINE 08/01/2025 Insurance [facility] Care Teams Supervisor Cell Room Relationship Specialty Start Date End Date Mingo Weiss DO [address] [place] [address] PCP - General Internal Medicine 03/09/24
[2025-06-14 11:09] VITALS: BP 139/84; PULSE 66; RESP 16; TEMP 36.4; O2SAT 99
[2025-06-14] MEDS: SODIUM CHLORIDE 0.9% 10ML FLUSH SYRINGE 10 ML IV (11:09)
[2025-06-14] MEDS: MAGNESIUM SULFATE IN WATER 2 GM/50 ML PIGGYBACK IV (11:09)
[2025-06-14 11:17] LABS: Chloride 88 mmol/L (98-107); Sodium 129 mmol/L (136-145)
[2025-06-14 11:18] LABS: Potassium 3.8 mmoL/L (3.5-5.1)
[2025-06-14 11:20] LABS: Alanine Aminotransferase 15 U/L (12-78); Alkaline Phosphatase 150 U/L (38-126); Aspartate Amino Transferase 22 U/L (17-59); Bilirubin,Total 1.2 mg/dl (0.2-1.3); Blood Urea Nitrogen 21 mg/dl (9-20); Carbon Dioxide 33 mmol/L (22.0-30.0); Creatinine,Serum 1.70 mg/dl (0.66-1.25); Estimated Glomerular Filt Rate 41 ml/min (>60); GFR (African American) 50 ML/MIN (>60); Total Protein,Serum 7.2 g/dl (6.3-8.2)
[2025-06-14 11:21] LABS: Calcium 8.2 mg/dl (8.4-10.2); Glucose 170 mg/dl (74-100)
[2025-06-14 11:28] LABS: Anion Gap 11.8 mEq/L (5-15)
[2025-06-14 11:29] LABS: Magnesium 0.8 mg/dl (1.6-2.3)
[2025-06-14 12:09] VITALS: BP 132/78; PULSE 69; RESP 16; TEMP 36.6; O2SAT 99
[2025-06-14 12:26] LABS: Uric Acid 8.0 mg/dl (3.5-8.5)
[2025-06-14 12:27] LABS: Albumin Level 4.1 g/dl (3.5-5.0); Albumin/Globulin Ratio 1.3 (1.1-1.8); Globulin 3.1 g/dL (1.3-3.2)
== END 2025-06-14 12:15 | disposition home or self-care (01) ==
LOC: INF 10:55
PROVIDERS: PCP Internal Medicine; Visit Provider Internal Medicine
DX: E83.42 Hypomagnesemia (principal); M10.9 Gout, unspecified; E87.8 Other disorders of electrolyte and fluid balance, not elsewhere classified
CPT/HCPCS: 80053; 83735; 84550; 96365; J3475

== ENCOUNTER 2025-06-19 12:32 | Outpatient (CLI) | payer OTHER, SELFPAY ==
--- OUTSIDE RECORDS SUMMARY | 2025-06-19 12:34 | XMS_ITS | Clinical Summary ---
Author Organization [facility] yste Address [address] [place] [address] Care Team Providers Care Director Of Search Engine Marketing Name Role Phone Mingo Weiss Primary Care [...] 2023- season) 2024 INFLUENZA VACCINE 08/01/2025 Insurance [facility] Care Teams Director Of Search Engine Marketing Relationship Specialty Start Date End Date Mingo Weiss DO [address] [place] [address] PCP - General Internal Medicine 03/09/24
--- OUTSIDE RECORDS SUMMARY | 2025-06-19 12:34 | XMS_ITS | Clinical Summary ---
Author Organization Healthcare Address [address] [place] [address] Care Team Providers Care Field Care Manager Name Role Phone Chacho Gutierrez MD Primary Care Provider + [phone] Allergies Active Allergy Reactions Criticality Noted Date [...] 10 MG capsule 3 Active HYDROcodone-leonard taminophen ([place]) 5-325 MG tablet Active hydrocortisone 2.5 % [...] Department Care Team Description 04/27/2025 Orders Only [facility] [address] [place] [address] Vibha Huber Stage 3 chronic kidney disease, unspecified whether stage 3a or 3b CKD (CMS/[facility]) (Primary Dx); Vitamin D insufficiency from Last [...] 07/11/2025 1:00 PM EDT Office Visit Professional [facility] Nephrology, Bone & Mineral Metabolism [address], [address] [place] [address] Paolo Grover MD [address] [place] [address] Health Maintenance Due Date Last [...] - PCV20 or PCV21) 09/07/2022 09/07/2017, 09/07/2017 [id number] Vaccine ( - season) 2024 11/06/2021, 02/12/2021, [...] this topic Medical Devices Implanted Type Area Booking Police Officer Device Identifier Shelf Expiration Date Model / Serial / Lot Unknown Femur K-Wire Dual Trocar 035 X 152mm - [id number] Implanted:Qty: 1 on 01/28/2024 by Juan Francisco MD at [facility] Left: Little [employer]inger [id number] 12/21/2026 [id number] / / [id number] Insurance [facility] MEDICAID Care Teams Field Care Manager Relationship Specialty Start Date End Date Chacho Gutierrez MD NPI: [id number] [address] [place], [place] [id number] PCP - General 03/14/21
--- OUTSIDE RECORDS SUMMARY | 2025-06-19 12:34 | XMS_ITS | Encounter Summary ---
Author Organization Healthcare Address [address] [place] [address] Care Team Providers Care Agent Based Modeler Name Role Phone Chacho Gutierrez MD Primary Care Provider [phone] Encounter Details Date Type Department Care Team (Late st Contact Info) Description 04/27/2025 Orders Only [facility] [address] [place] [address] Vibha Huber Stage 3 chronic [...] 1:00 PM EDT Office Visit Professional [facility] Nephrology, Bone & Mineral Metabolism [address], [address] [place] [address] Paolo Grover MD [address] [place] [phone] Scheduled Orders Name Type Priority Associated Diagnoses [...] documented as of this encounter Care Teams Agent Based Modeler Relationship Specialty Start Date End Date Chacho Gutierrez MD [address] [place] [address] PCP - General 03/14/21 documented as of this encounter
[2025-06-19 12:56] VITALS: BP 116/72; PULSE 59; RESP 18; TEMP 36.6; O2SAT 98
[2025-06-19] MEDS: MAGNESIUM SULFATE IN WATER 2 GM/50 ML PIGGYBACK IV (12:56)
[2025-06-19 12:57] LABS: Chloride 91 mmol/L (98-107)
[2025-06-19] MEDS: SODIUM CHLORIDE 0.9% 10ML FLUSH SYRINGE 10 ML IV (12:57)
[2025-06-19 12:58] LABS: Potassium 4.2 mmoL/L (3.5-5.1); Sodium 128 mmol/L (136-145)
[2025-06-19 13:00] LABS: Blood Urea Nitrogen 24 mg/dl (9-20); Creatinine,Serum 1.60 mg/dl (0.66-1.25); Estimated Glomerular Filt Rate 44 ml/min (>60); GFR (African American) 54 ML/MIN (>60)
[2025-06-19 13:01] LABS: Anion Gap 15.2 mEq/L (5-15); Calcium 8.5 mg/dl (8.4-10.2); Carbon Dioxide 26 mmol/L (22.0-30.0); Glucose 179 mg/dl (74-100); Magnesium 1.1 mg/dl (1.6-2.3)
[2025-06-19 14:00] VITALS: BP 116/75; PULSE 82; RESP 18; O2SAT 98
== END 2025-06-19 14:00 | disposition home or self-care (01) ==
LOC: INF 12:33
PROVIDERS: PCP Internal Medicine; Visit Provider Internal Medicine
DX: E83.42 Hypomagnesemia (principal)
CPT/HCPCS: 80048; 83735; 96365; J3475

== ENCOUNTER 2025-06-28 12:55 | Outpatient (CLI) | payer OTHER, SELFPAY ==
--- OUTSIDE RECORDS SUMMARY | 2025-06-28 12:59 | XMS_ITS | Clinical Summary ---
Author Organization Healthcare Address [address] [place] [address] Care Team Providers Care Coconut Boiler Name Role Phone Chacho Gutierrez MD Primary Care Provider + [phone] Allergies Active Allergy Reactions Criticality Noted Date [...] 10 MG capsule 3 Active HYDROcodone-leonard taminophen ([place]) 5-325 MG tablet Active hydrocortisone 2.5 % [...] Department Care Team Description 04/27/2025 Orders Only [facility] [address] [place] [address] Vibha Huber Stage 3 chronic kidney disease, unspecified whether stage 3a or 3b CKD (CMS/[facility]) (Primary Dx); Vitamin D insufficiency from Last [...] Date Smoking Tobacco: Every Day Cigarettes 0.5 39.7 Started: 1985 Passive Smoke Exposure: Current Smokeless [...] 07/11/2025 1:00 PM EDT Office Visit [facility] [address], [address] [place] [address] Paolo Grover MD [address] [place] [address] Health Maintenance Due Date Last [...] - PCV20 or PCV21) 09/07/2022 09/07/2017, 09/07/2017 [id number] Vaccine ( - season) 2024 11/06/2021, 02/12/2021, [...] this topic Medical Devices Implanted Type Area Insurance Sales Producer Device Identifier Shelf Expiration Date Model / Serial / Lot Unknown Femur K-Wire Dual Trocar 035 X 152mm - [id number] Implanted:Qty: 1 on 01/28/2024 by Juan Francisco MD at [facility] Left: [place] [id number] 12/21/2026 1600-685 / / [id number] Insurance [facility] MEDICAID Care Teams Coconut Boiler Relationship Specialty Start Date End Date Chacho Gutierrez MD NPI: [id number] [address] [place], [place] [id number] PCP - General 03/14/21
--- OUTSIDE RECORDS SUMMARY | 2025-06-28 13:00 | XMS_ITS | Clinical Summary ---
Author Organization [facility] yste Address [address] [place] [address] Care Team Providers Care Rn Ambulatory Name Role Phone Mingo Weiss Primary Care [...] 2023- season) 2024 INFLUENZA VACCINE 08/01/2025 Insurance [facility] Care Teams Rn Ambulatory Relationship Specialty Start Date End Date Mingo Weiss DO [address] [place] [address] PCP - General Internal Medicine 03/09/24
[2025-06-28 13:10] VITALS: BP 124/68; PULSE 56; RESP 18; TEMP 36.8; O2SAT 99; BMI 35.7
[2025-06-28] MEDS: MAGNESIUM SULFATE IN WATER 2 GM/50 ML PIGGYBACK IV (13:10)
[2025-06-28 13:20] LABS: Chloride 93 mmol/L (98-107); Potassium 4.3 mmoL/L (3.5-5.1); Sodium 130 mmol/L (136-145)
[2025-06-28 13:23] LABS: Anion Gap 13.3 mEq/L (5-15); Blood Urea Nitrogen 27 mg/dl (9-20); Calcium 8.9 mg/dl (8.4-10.2); Carbon Dioxide 28 mmol/L (22.0-30.0); Creatinine Clearance Estimated 77 mL/min (50-200); Creatinine,Serum 1.60 mg/dl (0.66-1.25); Estimated Glomerular Filt Rate 44 ml/min (>60); GFR (African American) 54 ML/MIN (>60); Glucose 183 mg/dl (74-100)
[2025-06-28 13:43] LABS: Magnesium 0.9 mg/dl (1.6-2.3)
[2025-06-28 13:45] VITALS: BP 122/64; PULSE 54; RESP 20
[2025-06-28 14:10] VITALS: BP 126/62; PULSE 55
[2025-06-28] MEDS: DEFINITY US ECHO CONTRAST 2ML INJ 2 MG IV (15:43)
--- NOTE | 2025-06-28 16:00 | CA_ITS ---
APPROVED REPORT EXAM: Comprehensive 2D, Doppler, and color-flow Echocardiogram Malted Milk Supervisor: Sherri Larsen RT(R) Ht: 5 ft 9 in Wt: 245lbs BSA: 2.25 BP: 117/83 mmHg Indications: CHF, volume overload, smoker, hypertension, hyperlipidemia Echo Enhancing Agent Indication: Endocardial border delineation Agent(s) / Amount(s) Used: Definity 2 cc 2D Dimensions LA Volume 76.70 mL LA Volume Index 34.09 mL/m2 (M/F) 16-34 EF AP4 39.10 % GL Strain -12.2 % M-Mode Dimensions RVDd 4.29 cm (0.9-2.6) LA Diam 4.26 cm (1.9-4.0) LVDd 5.22 cm (3.5-5.7) LVDs 4.93 cm (3.5-5.7) IVSd 1.15 cm (0.6-1.1) PWd 0.85 cm (0.6-1.1) EF (Teich) 12.50% FS 5.60% EDV (Teich) 130.70 mL ESV (Teich) 114.40 mL Tricuspid Valve TR P. Velocity 355.00 cm/s Left Ventricle The left ventricle is normal size. Left ventricular systolic function is severely reduced. There is normal left ventricular wall thickness. There is severe global hypokinesis. The septum is asynchronous. Grade 3 diastolic dysfunction is present. No left ventricle thrombus noted on this study. LVEF is 25% Right Ventricle The right ventricle is moderately dilated. The right ventricular systolic function is moderately reduced. Atria The left atrium is moderately dilated. The right atrium is moderately dilated. There is no color Doppler evidence of interatrial shunt. Aortic Valve The aortic valve is mildly thickened. There is no hemodynamically significant aortic valvular stenosis. Trace aortic regurgitation is present. Mitral Valve The mitral valve is normal in structure. No evidence of mitral valve stenosis. Mild mitral regurgitation is present. Tricuspid Valve The tricuspid valve leaflets are thin and pliable. Moderate tricuspid regurgitation. RVSP is 40-45 mmHg. Pulmonic Valve The pulmonary valve is grossly normal in structure. Trace pulmonic valve regurgitation is present. Great Vessels The aortic root is normal in size. IVC is normal in size and collapses >50% with inspiration. Pericardium There is no pericardial effusion. Other Information Study Quality: Fair Conclusion Severe reduction in LV systolic function (LVEF 25%). Grade 3 diastolic dysfunction. Asynchronous septum. Moderate RV dilation with moderate reduction in RV function. Biatrial dilation. Moderate TR. Mild MR. RVSP 40-45 mmHg. Compared to prior study from 06/07/2024, the LV systolic function is now further reduced. Electronically signed by : Surekha Clements MD 06/28/2025 22:30:47
== END 2025-06-28 14:20 | disposition home or self-care (01) ==
LOC: RT 12:56 → INF 13:08
PROVIDERS: PCP Internal Medicine; Visit Provider Internal Medicine
DX: E83.42 Hypomagnesemia (principal); I08.1 Rheumatic disorders of both mitral and tricuspid valves; I11.0 Hypertensive heart disease with heart failure; I50.9 Heart failure, unspecified; E78.5 Hyperlipidemia, unspecified; F17.200 Nicotine dependence, unspecified, uncomplicated
CPT/HCPCS: 80048; 83735; 93306; 96365; J3475; Q9957

== ENCOUNTER 2025-07-10 11:43 | Outpatient (CLI) | payer OTHER, SELFPAY ==
--- OUTSIDE RECORDS SUMMARY | 2025-07-10 11:48 | XMS_ITS | Clinical Summary ---
Author Organization [facility] yste Address [address] [place] [address] Care Team Providers Care Yolk Spray Drier Name Role Phone Mingo Weiss Primary Care [...] of 2) 2016 COVID-19 Vaccine (1 - season) 2025 INFLUENZA VACCINE 08/01/2025 Insurance [facility] Care Teams Yolk Spray Drier Relationship Specialty Start Date End Date Mingo Weiss DO [address] [place] [address] PCP - General Internal Medicine 03/09/24
--- OUTSIDE RECORDS SUMMARY | 2025-07-10 11:48 | XMS_ITS | Clinical Summary ---
Author Organization Healthcare Address [address] [place] [address] Care Team Providers Care Senior Administrative Associate Name Role Phone Chacho Gutierrez MD Primary Care Provider [phone] Allergies Active Allergy Reactions Criticality Noted Date [...] 10 MG capsule 3 Active HYDROcodone-leonard taminophen ([place]) 5-325 MG tablet Active hydrocortisone 2.5 % [...] Department Care Team Description 04/27/2025 Orders Only [facility] [address] [place] [address] Vibha Huber Stage 3 chronic kidney disease, unspecified whether stage 3a or 3b CKD (CMS/[facility]) (Primary Dx); Vitamin D insufficiency from Last [...] - PCV20 or PCV21) 09/07/2022 09/07/2017, 09/07/2017 [facility]-Depression Screening 12/14/2024 12/14/2023 [id number] Vaccine ( season) 2025 11/06/2021, 02/12/2021, 01/15/2021 [facility]-Influenza Vaccine (#1) 07/02/202511/06, 09/06/2020, 08/30/2019, Additional history exists [facility]-Hepatitis A Vaccines Aged Out 04/29/2019, 12/2 04/2018 No longer eligible based on patient's age [...] this topic Medical Devices Implanted Type Area Pipe Processor Device Identifier Shelf Expiration Date Model / Serial / Lot Unknown Femur K-Wire Dual Trocar 035 X 152mm - [id number] Implanted:Qty: 1 on 01/28/2024 by Juan Francisco MD at [facility] Left: [place] [id number] 1 12/21/2026 1600-635 / / [id number] Insurance Care Teams Senior Administrative Associate Relationship Specialty Start Date End Date Chacho Gutierrez MD [address] [id number] PCP - General 03/14/21
[2025-07-10 11:57] VITALS: BP 135/83; PULSE 67; RESP 18; TEMP 36.6; O2SAT 100
[2025-07-10] MEDS: SODIUM CHLORIDE 0.9% 10ML FLUSH SYRINGE 10 ML IV (11:57)
[2025-07-10] MEDS: MAGNESIUM SULFATE IN WATER 2 GM/50 ML PIGGYBACK IV (11:57)
[2025-07-10 12:15] LABS: Anion Gap 14.2 mEq/L (5-15); Blood Urea Nitrogen 33 mg/dl (9-20); Calcium 9.2 mg/dl (8.4-10.2); Carbon Dioxide 29 mmol/L (22.0-30.0); Chloride 94 mmol/L (98-107); Creatinine,Serum 2.10 mg/dl (0.66-1.25); Estimated Glomerular Filt Rate 32 ml/min (>60); GFR (African American) 39 ML/MIN (>60); Glucose 198 mg/dl (74-100); Magnesium 1.1 mg/dl (1.6-2.3); Potassium 4.2 mmoL/L (3.5-5.1); Sodium 133 mmol/L (136-145)
[2025-07-10 13:17] VITALS: BP 121/64; PULSE 70; RESP 20; O2SAT 99
== END 2025-07-10 13:22 | disposition home or self-care (01) ==
LOC: INF 11:43
PROVIDERS: PCP Internal Medicine; Visit Provider Internal Medicine
DX: E83.42 Hypomagnesemia (principal)
CPT/HCPCS: 80048; 83735; 96365; J3475

== ENCOUNTER 2025-07-11 08:22 | Day surgery (SDC) | payer OTHER, SELFPAY ==
[2025-07-11] VITALS (11 sets, daily range): BP systolic 94–173; BP diastolic 53–104; PULSE 56–88; RESP 14–20; O2SAT 91–99; BMI 35.4
--- NOTE | 2025-07-11 07:11 | IR_ITS ---
APPROVED REPORT Patient Location: Outpatient PROCEDURES Left heart catheterization Left ventriculogram Selective coronary angiogram INDICATION Known ischemic heart disease, Worsening cardiomyopathy, Systolic ejection fraction of 25%, Informed consent was obtained prior to the procedure. COMPLICATIONS NONE Estimated Blood Loss: LESS THAN 10 ML TECHNIQUE One percent lidocaine used to anesthetize the right anterior aspect of the wrist. The right radial artery was accessed via the Seldinger technique. A 6 Telugu sheath was placed in the right radial artery. 2.5 mg of Verapamil, 800 mcg of nitroglycerin, 1mg Lidocaine and 5000 U Heparin were given through the arterial sheath. The JL3 catheter was also used to perform left heart catheterization, left ventriculogram and selective coronary angiogram. At the end of the procedure the sheath was removed good hemostasis was achieved using Traclet band, patient was transferred to the postop holding area in stable condition. ANGIOGRAPHIC RESULTS The left main artery Normal The left anterior descending artery Widely patent The circumflex artery Dominant and gives rise to a large ramus intermedius which has a stent in the proximal to mid segment which has mild concentric in-stent restenosis. The remaining circumflex artery is widely patent The right coronary artery Nondominant normal The CHOI ventriculogram reveals Globally hypokinetic ejection fraction 25% The left ventricular end-diastolic pressure 20 mmHg IMPRESSION History of ischemic heart disease with worsening ejection fraction not explained by the degree of coronary artery disease Global hypokinesis most consistent with global cardiomyopathy Borderline elevated LVEDP PLAN 1. Patient has renal failure with a creatinine 2.2 and worsening ejection fraction. Recommend cardiac MRI and hematologic workup for high suspicion of amyloidosis 2. Continue with LifeVest 3. After patient has been on GDMT 90 days for systolic heart failure recommend AICD if ejection fraction remains low 4. Risk factor modification Electronically signed by : Mingo García MD 07/11/2025 13:46:51
[2025-07-11 08:46] LABS: Hematocrit 39.8 % (42.0-52.0); Hemoglobin 11.8 g/dL (14.1-18.0); Immature Granulocytes % 0.3 %; Mean Corpuscular HGB Conc 29.6 g/dL (31.8-35.4); Mean Corpuscular Hemoglobin 21.3 pg (27.0-31.2); Mean Corpuscular Volume 71.8 fl (80-94); Nucleated Red Blood Cells % 0 %; Platelet Count 346 K/mm3 (142-424); Red Blood Count 5.54 M/mm3 (4.60-6.20); Red Cell Distribution Width-SD 52.1 fL; White Blood Count 9.4 K/mm3 (4.8-10.8)
[2025-07-11 08:55] LABS: Anion Gap 15.3 mEq/L (5-15); Blood Urea Nitrogen 30 mg/dl (9-20); Calcium 9.9 mg/dl (8.4-10.2); Carbon Dioxide 29 mmol/L (22.0-30.0); Chloride 94 mmol/L (98-107); Creatinine Clearance Estimated 56 mL/min (50-200); Creatinine,Serum 2.20 mg/dl (0.66-1.25); Estimated Glomerular Filt Rate 31 ml/min (>60); GFR (African American) 37 ML/MIN (>60); Glucose 155 mg/dl (74-100); Potassium 4.3 mmoL/L (3.5-5.1); Sodium 134 mmol/L (136-145)
[2025-07-11] MEDS: HEPARIN 1,000 UNITS/500ML NS (CATH LAB) 3000 UNIT IV (11:11)
[2025-07-11] MEDS: HEPARIN 1,000 UNITS/ML 10ML VIAL (CATH LAB) 5000 UNIT IV (11:13)
[2025-07-11] MEDS: NITROGLYCERIN 800MCG/8ML SYR (CATH LAB) 800 MCG IA (11:13)
[2025-07-11] MEDS: 0.9 % SODIUM CHLORIDE 500 ML 25 ML IV (11:13)
[2025-07-11] MEDS: VERAPAMIL 2.5MG/ML 2ML VIAL 2.5 MG IV (11:13)
[2025-07-11] MEDS: LIDOCAINE 1% 10ML MDV 10 ML IJ (11:15)
[2025-07-11] MEDS: FENTANYL 100MCG/2ML VIAL 50 MCG IV (12:23)
[2025-07-11] MEDS: MIDAZOLAM HCL 1MG/ML 5ML VIAL 1 MG IV (12:24)
[2025-07-11] MEDS: IOPAMIDOL-370 (76%);100ML BOTTLE 50 ML IV (13:27)
== END 2025-07-11 15:11 | disposition home or self-care (01) ==
LOC: CATHLAB 08:23
PROVIDERS: PCP Internal Medicine; Visit Provider Internal Medicine
PROC: 4A023N7 Measurement of Cardiac Sampling and Pressure, Left Heart, Percutaneous Approach (ICD-10-PCS; CPT 93452; principal; 2025-07-11 08:45)
DX: T82.855A Stenosis of coronary artery stent, initial encounter (principal); I20.89 Other forms of angina pectoris; I13.0 Hypertensive heart and chronic kidney disease with heart failure and stage 1 through stage 4 chronic kidney disease, or unspecified chronic kidney disease; I50.20 Unspecified systolic (congestive) heart failure; N18.31 Chronic kidney disease, stage 3a; E11.22 Type 2 diabetes mellitus with diabetic chronic kidney disease; E11.9 Type 2 diabetes mellitus without complications; E03.9 Hypothyroidism, unspecified; I25.2 Old myocardial infarction; I48.91 Unspecified atrial fibrillation; J44.9 Chronic obstructive pulmonary disease, unspecified; I25.5 Ischemic cardiomyopathy; E78.2 Mixed hyperlipidemia; E83.42 Hypomagnesemia; F17.210 Nicotine dependence, cigarettes, uncomplicated; Z86.718 Personal history of other venous thrombosis and embolism; Z86.73 Personal history of transient ischemic attack (TIA), and cerebral infarction without residual deficits; Z95.5 Presence of coronary angioplasty implant and graft; Z79.3 Long term (current) use of hormonal contraceptives; Z79.01 Long term (current) use of anticoagulants; Z79.02 Long term (current) use of antithrombotics/antiplatelets; Z79.51 Long term (current) use of inhaled steroids; Z79.899 Other long term (current) drug therapy; Z88.8 Allergy status to other drugs, medicaments and biological substances; Z82.49 Family history of ischemic heart disease and other diseases of the circulatory system; Y84.8 Other medical procedures as the cause of abnormal reaction of the patient, or of later complication, without mention of misadventure at the time of the procedure
CPT/HCPCS: 80048; 85025; 93458; 99152; C1725; C1760; C1769; J1200; J1644; J2704; J3010; J7040; Q9967

== ENCOUNTER 2025-07-16 10:12 | Outpatient (CLI) | payer OTHER, SELFPAY ==
--- NOTE | 2025-07-16 10:15 | CA_ITS ---
APPROVED REPORT EXAM: Limited 2D Echocardiogram with contrast Advisory Software Engineer: Sherri Larsen RT(R) Ht: 5 ft 9 in Wt: 240lbs BSA: 2.23 BP: 119/84 mmHg Indications: currently in lifevest, CAD, CHF Echo Enhancing Agent Indication: Endocardial border delineation Agent(s) / Amount(s) Used: Definity 2 cc 2D Dimensions EF AP4 25.40 % GL Strain -8.1 % M-Mode Dimensions RVDd 4.33 cm (0.9-2.6) LVDd 5.98 cm (3.5-5.7) LVDs 5.31 cm (3.5-5.7) IVSd 1.03 cm (0.6-1.1) PWd 0.31 cm (0.6-1.1) EF (Teich) 23.90% FS 11.20% EDV (Teich) 178.60 mL ESV (Teich) 135.90 mL Other Information Study Quality: Fair Conclusion This is a limited TTE to evaluate for LV systolic function. Limited windows are obtained. Ultrasound enhancing agent is administered. The left ventricle is normal in size. There is normal LV wall thickness. The septum is asynchronous. There is severe global hypokinesis present. LVEF is 25%. The right ventricle is mildly to moderately dilated with moderate reduction in RV systolic function. Administration of ultrasound enhancing agent demonstrates no evidence of LV thrombus. Compared to prior TTE from 06/28/2025, the LV systolic function is unchanged. Electronically signed by : Surekha Clements MD 07/16/2025 15:24:08
--- OUTSIDE RECORDS SUMMARY | 2025-07-16 10:21 | XMS_ITS | Clinical Summary ---
Author Organization [facility] yste Address [address] [place] [address] Care Team Providers Care Web Applications Developer Name Role Phone Mingo Weiss Primary Care [...] - season) 2025 INFLUENZA VACCINE 08/01/2025 Insurance [facility] Care Teams Web Applications Developer Relationship Specialty Start Date End Date Mingo Weiss DO [address] [place] [address] PCP - General Internal Medicine 03/09/24
--- OUTSIDE RECORDS SUMMARY | 2025-07-16 10:21 | XMS_ITS | Clinical Summary ---
Author Organization Healthcare Address [address] [place] [address] Care Team Providers Care Forest Fire Specialist Supervisor Name Role Phone Chacho Gutierrez MD Primary Care Provider + [phone] Allergies Active Allergy Reactions Criticality Noted Date [...] 10 MG capsule 3 Active HYDROcodone-leonard taminophen ([place]) 5-325 MG tablet Active hydrocortisone 2.5 % [...] Department Care Team Description 04/27/2025 Orders Only [facility] [address] [place] [address] Vibha Huber Stage 3 chronic kidney disease, unspecified whether stage 3a or 3b CKD (CMS/[facility]) (Primary Dx); Vitamin D insufficiency from Last [...] 09/07/2022 09/07/2017, 09/07/2017 [facility]-Depression Screening 12/14/2024 12/14/2023 [id number] Vaccine ( season) 2025 11/06/2021, 02/12/2021, 01/15/2021 [...] this topic Medical Devices Implanted Type Area Gear Room Keeper Device Identifier Shelf Expiration Date Model / Serial / Lot Unknown Femur K-Wire Dual Trocar 035 X 152mm - [id number] Implanted:Qty: 1 on 01/28/2024 by Juan Francisco MD at [facility] Left: [place] [id number] 1 12/21/2026 1600-635 / / [id number] Insurance Care Teams Forest Fire Specialist Supervisor Relationship Specialty Start Date End Date Chacho Gutierrez MD [address] [id number] PCP - General 03/14/21
[2025-07-16] MEDS: DEFINITY US ECHO CONTRAST 2ML INJ 2 MG IV (11:08)
[2025-07-16 12:02] VITALS: BP 139/89; PULSE 85; RESP 16; TEMP 36.6; O2SAT 100
[2025-07-16] MEDS: MAGNESIUM SULFATE IN WATER 2 GM/50 ML PIGGYBACK IV (12:02)
[2025-07-16] MEDS: SODIUM CHLORIDE 0.9% 10ML FLUSH SYRINGE 10 ML IV (12:09)
[2025-07-16 12:21] LABS: Anion Gap 12.4 mEq/L (5-15); Blood Urea Nitrogen 31 mg/dl (9-20); Calcium 9.7 mg/dl (8.4-10.2); Carbon Dioxide 30 mmol/L (22.0-30.0); Chloride 96 mmol/L (98-107); Creatinine,Serum 1.90 mg/dl (0.66-1.25); Estimated Glomerular Filt Rate 36 ml/min (>60); GFR (African American) 44 ML/MIN (>60); Glucose 148 mg/dl (74-100); Magnesium 1.2 mg/dl (1.6-2.3); Potassium 4.4 mmoL/L (3.5-5.1); Sodium 134 mmol/L (136-145)
[2025-07-16 13:02] VITALS: BP 110/80; PULSE 73; RESP 16; O2SAT 99
== END 2025-07-16 13:05 | disposition home or self-care (01) ==
LOC: RT 10:13 → INF 11:39
PROVIDERS: PCP Internal Medicine; Visit Provider Physician Assistant
DX: M10.9 Gout, unspecified (principal); E83.42 Hypomagnesemia; I51.89 Other ill-defined heart diseases; I51.7 Cardiomegaly
CPT/HCPCS: 80048; 83735; 93308; 96365; J3475; Q9957

== ENCOUNTER 2025-07-24 11:53 | Outpatient (CLI) | payer OTHER, SELFPAY ==
--- OUTSIDE RECORDS SUMMARY | 2025-07-24 11:56 | XMS_ITS | Clinical Summary ---
Author Organization [facility] yste Address [address] [place] [address] Care Team Providers Care Sales And Catering Coordinator Name Role Phone Mingo Weiss Primary Care [...] 2016 ZOSTER VACCINE (1 of 2) 2016 INFLUENZA VACCINE 06/01/2025 Insurance [facility] [employer] [place] Care Teams Sales And Catering Coordinator Relationship Specialty Start Date End Date Mingo Weiss DO [address] [place] [address] PCP - General Internal Medicine 03/09/24
--- OUTSIDE RECORDS SUMMARY | 2025-07-24 11:56 | XMS_ITS | Clinical Summary ---
Author Organization Healthcare Address [address] [place] [address] Care Team Providers Care Multi Care Technician Name Role Phone Chacho Gutierrez MD Primary Care Provider + [phone] Allergies Active Allergy Reactions Criticality Noted Date [...] 10 MG capsule 3 Active HYDROcodone-leonard taminophen ([place]) 5-325 MG tablet Active hydrocortisone 2.5 % [...] disease) stage 3, GFR 30-59 ml/min 07/06/2019 Diabetes mellitus 09/01/2018 Hypertension 09/01/2018 Hypocalcemia 06/01/2018 Hypomagnesemia 06/01/2018 Renal insufficiency 06/01/2018 Resolved Problems Problem Noted Date Diagnosed Date Resolved Date CHINTAN (acute kidney injury) 09/08/2018 Encounters Date Type Department Care Team Description 04/27/2025 Orders Only [facility] [address] [place] [address] Vibha Huber Stage 3 chronic kidney disease, unspecified whether stage 3a or 3b CKD (CMS/[facility]) (Primary Dx); Vitamin D insufficiency [...] 09/07/2022 09/07/2017, 09/07/2017 [facility]-Depression Screening 12/14/2024 12/14/2023 [id number]-28 Vaccine (4 - season) 2025 11/06/2021, 02/12/2021, 01/15/2021 [facility]-Influenza Vaccine [...] this topic Medical Devices Implanted Type Area Mortgage Broker Device Identifier Shelf Expiration Date Model / Serial / Lot Unknown Femur K-Wire Dual Trocar 035 X 152mm - [id number] Implanted:Qty: 1 on 01/28/2024 by Juan Francisco MD at [facility] Left: [place] [id number] 1 12/21/2026 1600-635 / / [id number] Insurance [employer] MEDICAID Care Teams Multi Care Technician Relationship Specialty Start Date End Date Chacho Gutierrez MD [address] [place] [address] PCP - General 03/14/21
[2025-07-24 12:01] VITALS: BMI 35.6
[2025-07-24] MEDS: SODIUM CHLORIDE 0.9% 10ML FLUSH SYRINGE 10 ML IV (12:04)
[2025-07-24 12:05] VITALS: BP 141/85; PULSE 65; RESP 14; TEMP 36.6; O2SAT 99
[2025-07-24] MEDS: MAGNESIUM SULFATE IN WATER 2 GM/50 ML PIGGYBACK IV (12:05)
[2025-07-24 12:15] LABS: Chloride 94 mmol/L (98-107)
[2025-07-24 12:16] LABS: Potassium 4.5 mmoL/L (3.5-5.1); Sodium 135 mmol/L (136-145)
[2025-07-24 12:18] LABS: Blood Urea Nitrogen 44 mg/dl (9-20); Creatinine Clearance Estimated 51 mL/min (50-200); Creatinine,Serum 2.40 mg/dl (0.66-1.25); Estimated Glomerular Filt Rate 28 ml/min (>60); GFR (African American) 34 ML/MIN (>60)
[2025-07-24 12:19] LABS: Anion Gap 16.5 mEq/L (5-15); Calcium 9.4 mg/dl (8.4-10.2); Carbon Dioxide 29 mmol/L (22.0-30.0); Glucose 155 mg/dl (74-100); Magnesium 1.3 mg/dl (1.6-2.3)
[2025-07-24 13:05] VITALS: BP 124/83; PULSE 70; RESP 14; TEMP 36.6; O2SAT 100
== END 2025-07-24 23:59 | disposition home or self-care (01) ==
LOC: INF 11:54
PROVIDERS: PCP Internal Medicine; Visit Provider Internal Medicine
DX: E83.42 Hypomagnesemia (principal); N18.32 Chronic kidney disease, stage 3b
CPT/HCPCS: 80048; 83735; 96365; J3475

== ENCOUNTER 2025-07-25 10:22 | Outpatient (CLI) | payer OTHER, SELFPAY ==
--- OUTSIDE RECORDS SUMMARY | 2025-07-25 10:27 | XMS_ITS | Clinical Summary ---
Author Organization [facility] yste Address [address] [place] [address] Care Team Providers Care Commercial Sewing Instructor Name Role Phone Mingo Weiss Primary Care [...] of 2) 2016 INFLUENZA VACCINE 06/01/2025 Insurance [facility] [employer] Care Teams Commercial Sewing Instructor Relationship Specialty Start Date End Date Mingo Weiss DO [address] [place] [address] PCP - General Internal Medicine 03/09/24
--- OUTSIDE RECORDS SUMMARY | 2025-07-25 10:27 | XMS_ITS | Clinical Summary ---
Author Organization Healthcare Address [address] [place] [address] Care Team Providers Care Twill Cutter Name Role Phone Chacho Gutierrez MD Primary Care Provider + [phone] Allergies Active Allergy Reactions Criticality Noted Date [...] 10 MG capsule 3 Active HYDROcodone-leonard taminophen ([place]) 5-325 MG tablet Active hydrocortisone 2.5 % [...] Department Care Team Description 04/27/2025 Orders Only [facility] [address] [place] [address] Vibha Huber Stage 3 chronic kidney disease, unspecified whether stage 3a or 3b CKD (CMS/[facility]) (Primary Dx); Vitamin D insufficiency from Last [...] 09/07/2022 09/07/2017, 09/07/2017 [facility]-Depression Screening 12/14/2024 12/14/2023 [id number] Vaccine (4 - season) 2025 11/06/2021, 02/12/2021, [...] this topic Medical Devices Implanted Type Area Business Office Manager Device Identifier Shelf Expiration Date Model / Serial / Lot Unknown Femur K-Wire Dual Trocar 035 X 152mm - [id number] Implanted:Qty: 1 on 01/28/2024 by Juan Francisco MD at [facility] Left: [place] [id number] 12/21/2026 1600-635 / / [id number] Insurance [employer] MEDICA[employer] Care Teams Twill Cutter Relationship Specialty Start Date End Date Chacho Gutierrez MD [address] [place] [address] PCP - General 03/14/21
--- NOTE | 2025-07-25 10:30 | MR_ITS ---
APPROVED REPORT Mirror Polisher: CLINICAL INDICATION Cardiomyopathy evaluation TECHNIQUE Image Acquisition: Cardiac magnetic resonance (CMR) was performed on Siemens Espree MRI 1.5T scanner. Software platform sequences were performed using the Siemens MyNextRun MR B19 platform. A set of three-plane, low-resolution, large dqhyo-qy-skgn localizers were initially acquired. Then axial, coronal, sagittal TrueFISP, as well as axial HASTE images, were obtained. These were followed by gated TrueFISP breathold cinematic sequences obtained in the short axis with 8 mm slices and 2 mm gaps, 2-chamber (vertical long axis), 3-chamber, 4-chamber (horizontal long axis). A bolus of contrast was injected intravenously with first-pass sequences obtained in the short axis and four-chamber planes. After approximately 10 minutes, a TI vice president commercial bank sequence was performed to determine the optimal TI time. Using the optimized TI time, delayed contrast enhancement segmented inversion???recovery TurboFLASH sequences were obtained in the short axis, 2-chamber, 3-chamber, and 4-chamber projections. 2D-velocity phase mapping was performed. Functional parameters were calculated by offline analysis on an independent workstation (Play2Focus Imaging Platform, [employer]). Contrast: ProHance??? (Gadoteridol) FINDINGS MORPHOLOGY AND FUNCTION Left ventricle: The left ventricle is moderately dilated. The indexed left ventricular end-diastolic volume (LVEDVi) is 114 ml/m2 (reference range 57-105 ml/m2 in males, 56-96 ml/m2 in females). Severe reduction in left ventricular systolic function is present. There is normal left ventricular wall thickness. Severe global hypokinesis is present. There is akinesis of the basal to mid inferolateral LV wall. LVEF is calculated at 27.2% (reference range 57-77%). Right ventricle: The right ventricle is moderately dilated in size. The indexed right ventricular end-diastolic volume (RVEDVi) is 107 ml/m2 (reference range 61-121 ml/m2 in males, 48-112 ml/m2 in females). Severe reduction in right ventricular systolic function is present. RVEF is calculated at 28.3% (reference range 52-72% in males, 51-71% in females). Atria: The left atrium is severely dilated. The maximum indexed left atrial volume is 55 ml/m2 (reference range 26-52 ml/m2 in males, 27-53 ml/m2 in females). The right atrium is moderately dilated. The maximum indexed right atrial volume is 41 ml/m2 (reference range 18-90 ml/m2). Aorta: The diameter of the aortic annulus is normal, measuring 30 mm (coronal view reference range 21-30 mm in males, 19-27 mm in females). The diameter of the aortic sinus is normal, measuring 39 mm (coronal view reference range 25-42 mm in males, 24-36 mm in females). The diameter of the sinotubular junction is normal, measuring 31 mm (coronal view reference range 18-32 mm in males, 18-28 mm in females). The diameters of the ascending and descending thoracic aorta are normal. Main pulmonary artery: The main pulmonary artery is mildly dilated, measuring 32 mm in diameter. Pericardium: The pericardial thickness is normal. The pericardial thickness measures 1.0 mm (normal < 4.0 mm). There is no pericardial effusion. VALVES The valvular morphologies in the visualized sequences appear normal. There is no significant valvular stenosis or regurgitation of the mitral, aortic, tricuspid, or pulmonic valve noted visually. Systolic anterior motion of the mitral valve is not visualized. Ratio of pulmonary to systemic flow, Qp:Qs ratio = 1.04 (normal < or = 1.2, hemodynamically significant shunt > 1.5), demonstrating no evidence of hemodynamically significant shunt. TISSUE CHARACTERIZATION Resting Perfusion: Normal myocardial blood flow at rest. No evidence of resting hypoperfusion. Myocardial Fibrosis and/or edema: Transmural late gadolinium enhancement is noted along the mid inferolateral LV wall, consistent with presence of myocardial scarring due to prior infarction likely in the LCX territory. There is also a faint mid-myocardial stripe in the basal to mid septal LV wall. OTHER No other significant findings are noted. However, this exam is focused on the cardiac structure and function. IMPRESSION Normal LV size with normal LV systolic function. LVEDVi= 114 ml/m2 and LVEF= 28.7%. Normal RV size with normal RV systolic function. RVEDVi= 107 ml/m2 and RVEF= 28.3%. Biatrial enlargement. Transmural late gadolinium enhancement is noted along the mid inferolateral LV wall, consistent with presence of myocardial scarring due to prior infarction likely in the LCX territory. There is also a faint mid-myocardial stripe in the basal to mid septal LV wall. Perfusion analysis demonstrates normal blood flow at rest with no evidence of resting hypoperfusion. Ratio of pulmonary to systemic flow, Qp:Qs ratio = 1.04 (normal < or = 1.2, hemodynamically significant shunt > 1.5), demonstrating no evidence of hemodynamically significant shunt. Main pulmonary artery is mildly dilated, measuring 32 mm in diameter. The above findings are consistent with mixed ischemic and nonischemic biventricular cardiomyopathy with severe reduction in biventricular systolic function. The LGE pattern is suggestive of prior infarct and the LCx territory with absence of viable tissue in the corresponding region. The mid-myocardial septal LGE is consistent with idiopathic dilated cardiomyopathy. COMPARISON None CRITICAL RESULT None COMMUNICATION The above findings were relayed to the patient at the time of the routine outpatient cardiology follow-up visit, prior to dictation of this report. The findings of this cardiac MR were reviewed, reported, and signed by Saleme Clements MD (Grocery Specialist). Conclusion 1. i Electronically signed by : Surekha Clements MD 08/06/2025 23:43:35
[2025-07-25 10:52] LABS: Anion Gap 15.7 mEq/L (5-15); Blood Urea Nitrogen 42 mg/dl (9-20); Calcium 9.3 mg/dl (8.4-10.2); Carbon Dioxide 24 mmol/L (22.0-30.0); Chloride 96 mmol/L (98-107); Creatinine,Serum 2.50 mg/dl (0.66-1.25); Estimated Glomerular Filt Rate 27 ml/min (>60); GFR (African American) 32 ML/MIN (>60); Glucose 169 mg/dl (74-100); Potassium 4.7 mmoL/L (3.5-5.1); Sodium 131 mmol/L (136-145)
[2025-07-25] MEDS: GADOTERIDOL INJ 20ML SYRINGE 20 ML IV (11:53)
[2025-07-25] MEDS: 0.9 % SODIUM CHLORIDE 50 ML VIAL 10 ML IV (11:53)
== END 2025-07-25 23:59 | disposition home or self-care (01) ==
LOC: RAD 10:23
PROVIDERS: PCP Internal Medicine; Visit Provider Physician Assistant
DX: I42.0 Dilated cardiomyopathy (principal); I25.5 Ischemic cardiomyopathy; I42.8 Other cardiomyopathies; I28.1 Aneurysm of pulmonary artery; R93.1 Abnormal findings on diagnostic imaging of heart and coronary circulation; N18.32 Chronic kidney disease, stage 3b
CPT/HCPCS: 36415; 75561; 80048; A9576

== ENCOUNTER 2025-07-31 11:49 | Outpatient (CLI) | payer OTHER, SELFPAY ==
--- OUTSIDE RECORDS SUMMARY | 2025-07-31 11:51 | XMS_ITS | Clinical Summary ---
Author Organization [facility] yste Address [address] [place] [address] Care Team Providers Care Sand Cleaning Machine Operator Name Role Phone Mingo Weiss Primary Care [...] of 2) 2016 INFLUENZA VACCINE 06/01/2025 Insurance [facility] Care Teams Sand Cleaning Machine Operator Relationship Specialty Start Date End Date Mingo Weiss DO [address] [place] [address] PCP - General Internal Medicine 03/09/24
--- OUTSIDE RECORDS SUMMARY | 2025-07-31 11:51 | XMS_ITS | Clinical Summary ---
Author Organization Healthcare Address [address] [place] [address] Care Team Providers Care Gluing Machine Feeder Name Role Phone Chacho Gutierrez MD Primary Care Provider + [phone] Allergies Active Allergy Reactions Criticality Noted Date [...] 10 MG capsule 3 Active HYDROcodone-leonard taminophen ([place]) 5-325 MG tablet Active hydrocortisone 2.5 % [...] Resolved Date CHINTAN (acute kidney injury) 09/08/2018 Immunizations Immunization Administration Dates Next Due Hep [...] 09/07/2022 09/07/2017, 09/07/2017 UKY-Depression Screening 12/14/2024 12/14/2023 [id number] Vaccine ( season) 2025 11/06/2021, 02/12/2021, 01/15/2021 [...] this topic Medical Devices Implanted Type Area Riprap Placer Device Identifier Shelf Expiration Date Model / Serial / Lot Unknown Femur K-Wire Dual Trocar 035 X 152mm - [id number] Implanted:Qty: 1 on 01/28/2024 by Juan Francisco MD at [facility] Left: [place] [id number] 1 12/21/2026 [id number] / / [id number] Insurance [employer] Care Teams Gluing Machine Feeder Relationship Specialty Start Date End Date Chacho Gutierrez MD [address] [place] [address] PCP - General 03/14/21
[2025-07-31 11:56] VITALS: BMI 35.6
[2025-07-31 11:59] VITALS: BP 136/86; PULSE 88; RESP 18; TEMP 36.9; O2SAT 100
[2025-07-31] MEDS: MAGNESIUM SULFATE IN WATER 2 GM/50 ML PIGGYBACK IV (11:59)
[2025-07-31] MEDS: SODIUM CHLORIDE 0.9% 10ML FLUSH SYRINGE 10 ML IV (12:00)
[2025-07-31 12:16] LABS: Anion Gap 16.9 mEq/L (5-15); Blood Urea Nitrogen 37 mg/dl (9-20); Calcium 9.3 mg/dl (8.4-10.2); Carbon Dioxide 24 mmol/L (22.0-30.0); Chloride 97 mmol/L (98-107); Creatinine Clearance Estimated 61 mL/min (50-200); Creatinine,Serum 2.00 mg/dl (0.66-1.25); Estimated Glomerular Filt Rate 34 ml/min (>60); GFR (African American) 42 ML/MIN (>60); Glucose 176 mg/dl (74-100); Magnesium 1.2 mg/dl (1.6-2.3); Potassium 4.9 mmoL/L (3.5-5.1); Sodium 133 mmol/L (136-145)
[2025-07-31 13:00] VITALS: BP 105/65; PULSE 80; RESP 20; O2SAT 99
== END 2025-07-31 23:59 | disposition home or self-care (01) ==
LOC: INF 11:49
PROVIDERS: PCP Internal Medicine; Visit Provider Internal Medicine
DX: E83.42 Hypomagnesemia (principal)
CPT/HCPCS: 80048; 83735; 96365; J3475

== ENCOUNTER 2025-08-08 17:47 | Observation (INO) | payer OTHER, SELFPAY ==
[2025-08-08] VITALS (11 sets, daily range): BP systolic 108–155; BP diastolic 63–102; PULSE 67–93; RESP 14–20; TEMP 36.4–36.9; O2SAT 93–100; BMI 35.2; BMI 36.4
--- NOTE | 2025-08-08 07:13 | IR_ITS ---
APPROVED REPORT Patient Location: Outpatient Field Sales Specialist: BONITA Langford RT (R) PROCEDURES 1. Pocket formation for biventricular pacemaker generator with cardiac resynchronization/defibrillator therapy. 2. Placement of atrial sensing and pacing lead into the right atrial appendage. 3. Placement of a right ventricular sensing, pacing and shocking lead in the right ventricular apex. 4. Placement of left ventricular sensing pacing lead via the coronary sinus. 5. Permanent cardiac resynchronization therapy with ICD implantation/biventricular pacemaker. INDICATION Systolic Congestive Heart Failure, ejection 25%, Wide QRS >120ms, [place] Heart Assoication Class 3 Congestive Heart Failure Informed consent was obtained prior to the procedure. COMPLICATIONS NONE Estimated Blood Loss: LESS THAN 10 ML TECHNIQUE 1% Lidocaine with epinephrine used to anesthetized the left anterior aspect of the chest. Scalpel was used to make the initial cutaneous incision while electrocautery was used to dissect down tinto the fascia. The fascia was lifted off the pectoralis muscle and digitally manipulated creating a pocket for the defibrillator. The patient was then placed in Trendelenburg position and the subclavian vein was accessed 3 times via the Selinger technique. A 8 Albanian sheath was placed under fluoroscopic guidance into the subclavian vein. The dilator was removed from the sheath. Using fluoroscopic guidance, the ventricular lead was placed into the right ventricular apex, screwed and secured into place. Electronic interrogation proved acceptable thresholds and voltage within the lead. Using 3-0 silk, the ventricular lead was then secured into place and sheath peeled away. Following this, a 9.5 Albanian sheath and dilator was then placed over one of the wires while keeping the other wire in place within the subclavian vein. The dilator was removed from the sheath. Using fluoroscopic guidance, contrast was used to visualize the coronary sinus, the left ventricular lead was placed into the coronary sinus. Electronic interrogation proved acceptable thresholds and voltage within the lead. Using 3-0 silk, the left ventricular lead was then secured into place and sheath peeled away.An additional 6 Albanian fresh sheath and dilator was placed over the existing wire. Using fluoroscopic guidance, the atrial lead was then placed into the right atrial appendage and screwed and secured in place. Electrical interrogation demonstrated acceptable thresholds and voltage number. The atrial lead was then secured into place using 3-0 silk and sheath peeled away. 1 gram of Ancef was used to flush the pocket. All 3 leads were connected to generator and tested via computer. The defibrillator then secured to the fascia. Monocryl was used to close the subcutaneous layers while gurpreet were used to close the cutaneous layer. A pressure dressing was placed and the patient was transferred to the postop holding area in stable condition for postoperative care. INTERROGATION Generator Model number: [employer] Animation HF [id number] Generator Serial number: [id number] Atrial lead model number: Tendril STS [id number] Atrial lead serial number: [id number] P-wave: 4.0 mV Impedance: 529 Ohms Threshold: 0.75V @ 0.5ms Right Ventricular lead model number: Optisure [id number] Right Ventricular lead serial number: [id number] R-wave: 9 mV Impedance: 620 Ohms Threshold: 0.5V @ 0.5ms Left Ventricular lead model number: Quartet [id number] Left Ventricular lead serial number: [id number] R-wave: Impedance: 910 Ohms Threshold: 0.75V @ 0.5ms Pacing Parameters: Mode: DDD Base/Max Track:70 ppm / 130 ppm No diaphragmatic stimulation at 10 volts. IMPRESSION 1. Successful Pocket formation for biventricular pacemaker generator with cardiac resynchronization/defibrillator therapy. 2. Successful placement of right atrial sensing and pacing lead into the right atrial appendage. 3. Successful placement of a right ventricular sensing, pacing and shocking lead in the right ventricular apex. 4. Successful placement of left ventricular sensing pacing lead via the coronary sinus. 5. Successful permanent cardiac resynchronization plus AICD generator device. PLAN 1. Postop wound care. Electronically signed by : Mingo García MD 08/09/2025 16:43:25
[2025-08-08 10:24] LABS: Hematocrit 41.6 % (42.0-52.0); Hemoglobin 12.6 g/dL (14.1-18.0); Immature Granulocytes % 0.2 %; Mean Corpuscular HGB Conc 30.3 g/dL (31.8-35.4); Mean Corpuscular Hemoglobin 22.2 pg (27.0-31.2); Mean Corpuscular Volume 73.4 fl (80-94); Nucleated Red Blood Cells % 0 %; Platelet Count 292 K/mm3 (142-424); Red Blood Count 5.67 M/mm3 (4.60-6.20); Red Cell Distribution Width-SD 59.3 fL; White Blood Count 8.0 K/mm3 (4.8-10.8)
[2025-08-08] MEDS: 0.9 % SODIUM CHLORIDE 1000ML 1,000 ML 250 ML IV ×2 (11:45→17:09)
[2025-08-08] MEDS: LIDOCAINE 1% W/EPI 1:100,000 20ML VIAL 20 ML SQ (11:55)
[2025-08-08 12:10] LABS: Anion Gap 18.5 mEq/L (5-15); Blood Urea Nitrogen 54 mg/dl (9-20); Calcium 9.3 mg/dl (8.4-10.2); Carbon Dioxide 25 mmol/L (22.0-30.0); Chloride 97 mmol/L (98-107); Creatinine,Serum 2.40 mg/dl (0.66-1.25); Estimated Glomerular Filt Rate 28 ml/min (>60); GFR (African American) 34 ML/MIN (>60); Glucose 110 mg/dl (74-100); Potassium 4.5 mmoL/L (3.5-5.1); Sodium 136 mmol/L (136-145)
--- NOTE | 2025-08-08 14:38 | XR_ITS ---
PROCEDURE INFORMATION: Exam: XR Chest Exam date and time: 08/08/2025 6:50 PM Age: 60 years old Clinical indication: Device placement; Other: Confirm pacemaker/aid placement TECHNIQUE: Imaging protocol: Radiologic exam of the chest. Views: 1 view. COMPARISON: CR XR CHEST 2V 10/24/2022 11:58 AM FINDINGS: Tubes, catheters and devices: Multi lead pacemaker device is identified. Lungs: No acute infiltrates.. Pleural spaces: Unremarkable. No pleural effusion. No pneumothorax. Heart/Mediastinum: Mild enlargement of the cardiac silhouette. Bones/joints: Unremarkable. IMPRESSION: 1. Mild enlargement of the cardiac silhouette. 2. No acute infiltrates..
[2025-08-08] MEDS: IOPAMIDOL-370 (76%);100ML BOTTLE 210 ML IV (17:42)
--- NOTE | 2025-08-08 18:14 | PC.NURSE ---
arrived to floor at 17:35
[2025-08-08] MEDS: OXYCODONE 5MG W/APAP 325MG TABLET 2 EACH PO ×2 (18:29→22:54)
--- NOTE | 2025-08-08 19:04 | P.HP_ITS ---
<Statement entered by Renato Wagner MD - 08/10/25 11:53> Agree with plan of care as outlined by the RETURNS SUPERVISOR. History of Present Illness *Admission Date: 08/08/25 *Reason for visit:: Status post pacemaker *History of present illness: This is a 60-year-old male who has a past medical history significant for angina, hyponatremia, hypocalcemia, Langley's cyst, epididymitis, scrotal edema, congestive heart failure (HFrEF), diabetes, hypothyroidism, anxiety, depression, PTSD, chronic kidney disease, [place], DVT, coronary artery disease, cardiomyopathy, and bronchitis who is status post pacemaker placement. Patient has a history of chronic kidney disease, so cloth pattern maker wanted to observe patient overnight. Due to these recommendations, patient has been admitted for further management. During my evaluation of patient, patient states that he has postoperative pain. He was given oral pain medication prior to leaving the Consular Officer. Currently denies any chest pain, lightheadedness, dizziness, fever, chills, rigors, nausea, vomiting, or diarrhea. [facility] Disclaimer: The information contained in this section may have been updated after the patient was seen, as this information can be updated by other users. Medical History Atypical angina Dyspnea Encounter for pre-operative cardiovascular clearance Hyponatremia Hypocalcemia Fusion of fourth and fifth metacarpals Gout of right knee Bakers cyst Pain around toenail, left foot Scrotal swelling Epididymitis Femur fracture Scrotal edema CHF (congestive heart failure) Acute on chronic heart failure Edema Diabetes mellitus History of sinus problem Hypothyroidism Glaucoma Anxiety and depression Hypomagnesemia PTSD (post-traumatic stress disorder) Renal insufficiency GERD (gastroesophageal reflux disease) Myocardial infarct HLD (hyperlipidemia) HTN (hypertension) DVT (deep venous thrombosis) CAD (coronary artery disease) CHF (congestive heart failure) Cardiomyopathy Type 2 diabetes mellitus with complication, without long-term current use of insulin Typical angina CKD (chronic kidney disease) 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 Cough Otitis media, left Bronchitis Hyperlipidemia associated with type 2 diabetes mellitus Surgical History S/P ORIF (open reduction internal fixation) fracture femur-left History of cholecystectomy History of heart artery stent S/P drug eluting coronary stent placement Family History Other Family history of cancer Family history of diabetes mellitus type II Family history of hypertension Social History Smoking Status: Current every day smoker tobacco type: cigarettes packs per day: 1 pack-years: 40 second hand exposure: No alcohol intake: current alcohol intake frequency: a few times a month substance use type: former substance user and marijuana current occupational status: disabled Travel in the last 8 weeks?: None household members: none housing: apartment lives independently: Yes marital status: single education level: high school service: No jail: No current occupational exposures/hazards: No caffeine: Yes special veronica needs: No agree to transfusion: No do you feel safe at home: Yes victim of physical abuse: No victim of emotional abuse: No victim of sexual abuse: No would you like helpful sources: No Have you lived/traveled outside US in past 30 days?: No Contact w/someone who lives/traveled outside US past 30 days?: No Exposure to someone with infectious disease in past 14 days?: No Do you have a fever (greater than 100.4 F or 38 C)?: No Have you tested positive for COVID-19?: No Exposed to someone with COVID-19 in past 14 days?: No Do you have a sore throat?: No Do you have a cough?: No Do you have any weakness?: No Do you have any diarrhea?: No Are you experiencing any unusual bleeding?: No Do you have any muscle aches/pain?: No Do you have any abdominal pain?: No Are you experiencing loss of taste or smell?: No Other Medical History Have you received the Flu Vaccine for this season: Yes Have you received the Pneumonia Vaccine: Yes Review of Systems Review of Systems Review of systems:: pertinent systems reviewed and negative unless documented below Constitutional Constitutional: Reports system reviewed and no additional complaints, except as documented Eyes Eyes: Reports system reviewed and no additional complaints, except as documented ENT Ears, Nose, Mouth, and Throat: Reports system reviewed and no additional complaints, except as documented *Cardiovascular Cardiovascular: Reports system reviewed and no additional complaints, except as documented *Respiratory Respiratory: Reports system reviewed and no additional complaints, except as documented *Gastrointestinal Gastrointestinal: Reports system reviewed and no additional complaints, except as documented *Genitourinary Genitourinary: Reports system reviewed and no additional complaints, except as documented *Musculoskeletal Musculoskeletal: Reports system reviewed and no additional complaints, except as documented Integumentary/Breasts Skin/Breast: Reports system reviewed and no additional complaints, except as documented *Neurologic Neurologic: Reports system reviewed and no additional complaints, except as documented Psychiatric Psychiatric: Reports system reviewed and no additional complaints, except as documented Endocrine Endocrine: Reports system reviewed and no additional complaints, except as documented Hematologic/Lymphatic Hematologic/Lymphatic: Reports system reviewed and no additional complaints, except as documented Allergic/Immunologic Allergic/Immunologic: Reports system reviewed and no additional complaints, except as documented Meds Home Medications and Allergies Home Medications ?Medication ?Instructions ?Recorded ?Confirmed ?Type albuterol sulfate 90 mcg/actuation 1 - 2 puff inhalati on Q4HP PRN 10/22/22 07/31/25 History aerosol inhaler (ProAir HFA) asthma triamcinolone acetonide 0.1 % 1 applic topical QID PRN itching 04/05/23 07/31/25 Rx topical cream #454 grams blood sugar diagnostic (OneTouch 06/03/23 07/31/25 Moneytree Verio test strips) blood-glucose meter 06/03/23 07/31/25 History lancets 33 gauge 06/03/23 07/31/25 History loratadine 10 mg tablet 10 mg PO DAILY PRN allergies 06/17/23 07/31/25 History nitroglycerin 0.4 mg sublingual 0.4 mg sublingual N EEDED PRN 09/14/23 07/31/25 Rx tablet Chest Pain #25 tabs latanoprost 0.005 % eye drops 1 drp Eye-Both DAILY 03/2407/31/25 History blood-glucose sensor (FreeStyle #1 ea 08/01/24 5 Rx Deyvi 3 Plus Sensor device) flash glucose scanning reader #1 ea 08/01/24 07/31/25 Rx (FreeStyle Deyvi 2 [place]) ammonium lactate 12 % topical cream 1 applic topical B ID dry skin, 11/28/24 07/31/25 Rx callus care #385 grams bisoprolol fumarate 10 mg tablet 10 mg PO DAILY #90 ta bs 01/03/25 07/31/25 Rx clopidogrel 75 mg tablet 75 mg PO DAILY antiplatelet #90 01/03/25 07/31/25 Rx tabs probenecid 500 mg tablet 500 mg PO BID #60 tabs 01/3107/31/25 Rx rivaroxaban 15 mg tablet (Xarelto) 15 mg PO Q24H #30 t abs 02/19/25 07/31/25 Rx fluticasone propionate 50 1 spray intranasal DAILY 02/2307/31/25 History mcg/actuation nasal spray,suspension hydroxyzine HCl 50 mg tablet 50 mg PO DAILY 04/04/25 0 07/31/25 History linaclotide 145 mcg capsule 145 mcg PO DAILY 04/04/25 07/31/25 History (Linzess) nitroglycerin 0.4 % (w/w) rectal 1 inch LA BID #30 gra ms 04/05/25 07/31/25 Rx ointment lidocaine 5 % topical ointment 1 applic topical TID LA N pain #50 04/06/25 Rx grams febuxostat 80 mg tablet 80 mg PO DAILY #90 tabs 04/0107/31/25 Rx promethazine 25 mg tablet 12.5 mg (1/2 x 25 mg) PO TID PRN 05/09/25 07/31/25 Rx nausea and vomiting #30 tabs magnesium sulfate 500 mg/mL (50 %) 2 g (4 mL) IV WEEKL Y Supplement 05/11/25 07/31/25 Rx injection solution #50 mL Symbicort 160 mcg-4.5 See Rx Instructions .Route 0 06/18/25 07/31/25 Rx mcg/actuation HFA aerosol inhaler .COMPLEX #10.2 grams (budesonide-formoterol) torsemide 20 mg tablet 20 mg PO DAILY #30 tabs 06/0107/31/25 Rx magnesium chloride 64 mg See Rx Instructions .Route 0 06/27/25 07/31/25 Rx (magnesium chloride) .COMPLEX #90 tabs tablet,delayed release losartan 25 mg tablet 25 mg PO DAILY #30 tabs 01/2307/31/25 Rx colchicine 0.6 mg tablet See Rx Instructions .Route 0 07/17/25 07/31/25 Rx .COMPLEX #30 tabs famotidine 40 mg tablet See Rx Instructions .Route 0 07/17/25 07/31/25 Rx .COMPLEX #60 tabs levothyroxine 50 mcg tablet See Rx Instructions .Route 07/17/25 07/31/25 Rx .COMPLEX #90 tabs pantoprazole 40 mg tablet,delayed See Rx Instructions .Route 07/17/25 07/31/25 Rx release .COMPLEX #90 tabs sennosides 8.6 mg tablet (senna) See Rx Instructions . Route 07/17/25 07/31/25 Rx .COMPLEX #60 ea bisoprolol fumarate 5 mg tablet 5 mg PO DAILY #90 tabs 07/27/25 07/31/25 Rx dulaglutide 0.75 mg/0.5 mL 0.75 mg (0.5 mL) SQ WEEKLY #2 mL 07/27/25 07/31/25 Rx subcutaneous pen injector (Trulicity) nicotine (polacrilex) 2 mg buccal 2 mg buccal Q6H PRN nicotine 07/27/25 07/31/25 Rx lozenge cravings #72 ea nicotine 14 mg/24 hr daily 1 patch transdermal DAILY # 14 ea 07/27/25 07/31/25 Rx transdermal patch eplerenone 25 mg tablet See Rx Instructions .Route 1 Rx .COMPLEX #30 tabs New Prescriptions to Start Prescriptions: Allergies Allergy/AdvReac Type Severity Reaction Status Date / Time sacubitril (From Entresto) Allergy Mild itching Verified 07/31/25 15:38 valsartan (From Entresto) Allergy Mild itching Verified 07/31/25 15:38 amiodarone AdvReac Mild Nausea Verified 07/31/25 15:38 spironolactone AdvReac Mild gynecomasti Verified 07/31/25 15:38 a Exam Data for Last 24 hours Vital signs and Labs for Last 24 Hours: Temp Pulse Resp BP Pulse Ox O2 Del Method 97.5 F L 70 20 151/102 H 98 Room Air 08/08/25 17:55 08/08/25 18:40 08/08/25 18:40 08/08/25 18:40 08/08/25 18:40 08/08/25 18:48 Laboratory Results - last 24 hr 08/08/25 10:03: WBC 8.0, RBC 5.67, Hgb 12.6 L, Hct 41.6 L, MCV 73.4 L, MCH 22.2 L, MCHC 30.3 L, RDW 23.2 H, Plt Count 292, MPV 9.0, Neut % (Auto) 59.4, Lymph % (Auto) 24.1, [place] % (Auto) 12.6 H, Eos % (Auto) 3.1, Baso % (Auto) 0.6, Neut # (Auto) 4.8, Lymph # (Auto) 1.9, [place] # (Auto) 1.0, Eos # (Auto) 0.3, Baso # (Auto) 0.1, Sodium 136, Potassium 4.5, Chloride 97 L, Carbon Dioxide 25, Anion Gap 18.5 H, BUN 54 H, Creatinine 2.40 H, Estimated GFR 28 L, Est GFR ( Amer) 34 L, Glucose 110 H, Calcium 9.3 I & O for Last 24 hours: Intake & Output 08/05/25 08/06/25 08/07/25 08/08/25 23:59 23:59 23:59 23:59 Intake Total 1999 / 1999 Output Total 200 / 200 Balance 1800 / 1800 Weight 111.697 kg Constitutional Constitutional: no acute distress, obese and cooperative *Routine HEENT Exam Head: Present normocephalic Eye: Present EOMI and PERRL ENT: Present mucous membranes moist *Routine Neck Exam Neck: Present supple, full ROM and trachea midline Routine Chest/Breast/Axilla Exam Chest wall: Present tenderness and pacemaker *Routine Respiratory Exam Respiratory: Present CTA bilaterally, normal respiratory effort, able to speak in complete sentences and symmetric chest movement *Routine Cardiovascular Exam Cardiovascular: Present Normal S1 and Normal S2 *Routine Abdominal Exam Abdominal: Present soft, normoactive bowel sounds and obese *Routine Rectal Exam Rectal:: deferred *Routine Genitalia Exam Genitalia:: deferred *Routine Extremities Exam Extremities: Present full ROM, pulses intact and normal capillary refill Routine Back/Spine/Pelvis Exam Back/Spine: Present full ROM *Routine Skin Exam Skin: Present dry and warm *Routine Neurological Exam Neurological: Present alert, oriented X3, CN II-XII intact and normal speech Routine Psychiatric Exam Psychiatric: Present normal affect, normal thought process, cooperative, good insight and good judgment H&P: Result Impressions 60-year-old male who is status post pacemaker placement who is being monitored overnight due to renal impairment Assessment and Plan *Assessment and plan (1) Ischemic cardiomyopathy: Status: Acute Category: Medical Code(s): I25.5 - Ischemic cardiomyopathy (2) Status post placement of cardiac pacemaker: Status: Acute Category: Surgical Code(s): Z95.0 - Presence of cardiac pacemaker (3) Chronic kidney disease: Status: Acute Qualifiers: Chronic kidney disease stage: unspecified stage Qualified Code(s): N18.9 - Chronic kidney disease, unspecified Category: Medical Code(s): N18.9 - Chronic kidney disease, unspecified Plan Assessment: Ischemic cardiomyopathy Status post defibrillator - We appreciate any further guidance from cardiology - Pacemaker site is without any erythema Chronic kidney disease -Appears to be close to patient's baseline creatinine - Will give IV hydration over the course of the night Plan: Admit patient to the MedSurg unit Activity as tolerated Cardiac diet CBC/BMP in the a.m. Normal saline at 100 mL an hour 5 mg [place] p.o. every 4 hours pain moderate pain Oxycodone p.o. every 4 hours pain moderate pain Full code I have discussed to case with the attending physician Dr. Blas and I look forward to more input
--- NOTE | 2025-08-08 21:57 | CT_ITS ---
PROCEDURE INFORMATION: Exam: CT Head Without Contrast Exam date and time: 08/08/2025 10:26 PM Age: 60 years old Clinical indication: Other: Blurred vision TECHNIQUE: Imaging protocol: Computed tomography of the head without contrast. Radiation optimization: All CT scans at this facility use at least one of these dose optimization techniques: automated exposure control; mA and/or kV adjustment per patient size (includes targeted exams where dose is matched to clinical indication); or iterative reconstruction. COMPARISON: MR - 1.5T MR BRAIN WO 09/16/2023 1:14 PM FINDINGS: Brain: At encephalomalacia within the bilateral cerebellar hemispheres worse on the right side consistent with old infarcts. Encephalomalacia and gliosis noted focally within the right posterior parietooccipital junction. There is abnormal increased attenuation could be enhancement within the right occipital lobe. Suspicious for enhancement pattern that can be seen with a early subacute infarct. Recommend MRI of the brain this region of abnormal enhancement/increased attenuation spans 4.8 cm AP dimension by 2 cm in craniocaudal dimension by 2.9 cm in medial-lateral dimension. Cerebral ventricles: No ventriculomegaly. Paranasal sinuses: Visualized sinuses are unremarkable. No fluid levels. Mastoid air cells: Visualized mastoid air cells are well aerated. Bones: Unremarkable. No acute fracture. Soft tissues: Unremarkable. IMPRESSION: 1. There is abnormal increased attenuation could be enhancement within the right occipital lobe. Suspicious for enhancement pattern that can be seen with a acute to early subacute infarct. Recommend MRI of the brain. this region of abnormal enhancement/increased attenuation spans 4.8 cm AP dimension by 2 cm in craniocaudal dimension by 2.9 cm in medial-lateral dimension. 2. At encephalomalacia within the bilateral cerebellar hemispheres worse on the right side consistent with old infarcts. 3. Encephalomalacia and gliosis noted focally within the right posterior parietooccipital junction.
[2025-08-08] MEDS: NICOTINE 21MG/24HR PATCH 21 MG TD (22:10)
[2025-08-08] MEDS: 0.9 % SODIUM CHLORIDE 1,000 ML 100 ML IV (22:10)
--- NOTE | 2025-08-08 23:58 | EXP.EVENT.NO ---
I was contacted by nursing staff informed me that patient was having vision disturbances. Encouraged CT scan of the head without contrast. CT scan of the head was consistent with acute to subacute stroke. I called and spoke with Dr. Fermín Bhagat at [facility] concerning patient's case. Patient recently had a pacemaker placed so it was questionable and if his pacemaker was compatible with our MRI. Initially, neurologist recommended patient have loading dose of aspirin and Plavix but then called and recommended only 81 mg of aspirin after discussion with patient's primary hospitality host. Moreover, they recommended starting patient Xarelto. Assessment complete patient is alert and oriented x 4, no upper or lower extremity drift, left upper extremity is weaker than right and it may be due to patient's recent surgery, no paresthesia, smile symmetrical, NIHSS 1. Patient's last known normal was at 1900 hrs. I called and discussed case with attending. Will plan for MRI of the brain and MRA of the head and neck if pacemaker is compatible. Will obtain 2D echo with bubble study. Prior to initiating any therapy will discuss with radiology. Neurochecks every 4 hours
[2025-08-09] VITALS: BP 109/64; PULSE 70; RESP 16; TEMP 36.6; O2SAT 98
--- NOTE | 2025-08-09 | CA_ITS ---
APPROVED REPORT EXAM: Limited 2D Echocardiogram with contrast Area Director: Sherri Larsen RT(R) Ht: 5 ft 9 in Wt: 244lbs BSA: 2.25 BP: 135/75 mmHg Indications: repeat bubble study Echo Enhancing Agent Indication: Rule out Shunt Agent(s) / Amount(s) Used: Agitated Saline 10 cc Other Information Study Quality: Fair Conclusion This is a limited TTE to evaluate for interatrial shunts. Limited windows are obtained. Agitated saline administration (bubble study) confirms the presence of interatrial shunt (bubbles visualized in the LA/LV within 3 seconds after visualization in the RA/RV). Electronically signed by : Surekha Clements MD 08/11/2025 22:04:22
[2025-08-09 00:44] LABS: Hematocrit 38.4 % (42.0-52.0); Hemoglobin 11.7 g/dL (14.1-18.0)
[2025-08-09 04:00] VITALS: BP 123/79; PULSE 70; RESP 16; TEMP 36.6; O2SAT 97; BMI 36.1
--- NOTE | 2025-08-09 05:16 | PC.NURSE ---
Alert and oriented. Patient complained of vision changes at beginning of shift, Giles notified, new orders received and carried out. 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 Face symmetrical. Patient ambulates to wheelchair with no problems. Complained of pain, treated per dec. Left chest incision site CDI, mild bruising noted. Patient has rested on and off. Complained of anxiety after CT scan, treated per dec. Call light in reach.
[2025-08-09] MEDS: OXYCODONE 5MG W/APAP 325MG TABLET 2 EACH PO (05:54)
[2025-08-09 06:35] LABS: Hematocrit 37.7 % (42.0-52.0); Hemoglobin 11.3 g/dL (14.1-18.0); Immature Granulocytes % 0.1 %; Mean Corpuscular HGB Conc 30.0 g/dL (31.8-35.4); Mean Corpuscular Hemoglobin 22.5 pg (27.0-31.2); Mean Corpuscular Volume 75.1 fl (80-94); Nucleated Red Blood Cells % 0 %; Platelet Count 210 K/mm3 (142-424); Red Blood Count 5.02 M/mm3 (4.60-6.20); Red Cell Distribution Width-SD 61.2 fL; White Blood Count 8.0 K/mm3 (4.8-10.8)
[2025-08-09 06:51] LABS: Anion Gap 11.6 mEq/L (5-15); Blood Urea Nitrogen 42 mg/dl (9-20); Calcium 8.4 mg/dl (8.4-10.2); Carbon Dioxide 25 mmol/L (22.0-30.0); Chloride 103 mmol/L (98-107); Creatinine Clearance Estimated 59 mL/min (50-200); Creatinine,Serum 2.10 mg/dl (0.66-1.25); Estimated Glomerular Filt Rate 32 ml/min (>60); GFR (African American) 39 ML/MIN (>60); Glucose 109 mg/dl (74-100); Potassium 4.6 mmoL/L (3.5-5.1); Sodium 135 mmol/L (136-145)
[2025-08-09] MEDS: DEFINITY US ECHO CONTRAST 2ML INJ 2 MG IV (07:38)
--- NOTE | 2025-08-09 08:16 | HMH.PHAINT1 ---
Pharmacy Intervention Comments: Home medication list verified using list from outpatient pharmacy and pt interview. Pt is currently taking torsemide every day instead of 3 times a week.
[2025-08-09 08:35] VITALS: O2SAT 100
--- NOTE | 2025-08-09 09:00 | CA_ITS ---
APPROVED REPORT EXAM: Comprehensive 2D, Doppler, and color-flow Echocardiogram Fagoter: Sherri Larsen RT(R) Ht: 5 ft 8 in Wt: 246lbs BSA: 2.23 BP: 138/74 mmHg Indications: Stroke, ischemic CM, AICD placed 08/08/25. Echo Enhancing Agent Indication: Endocardial border delineation Agent(s) / Amount(s) Used: Definity 2 cc 2D Dimensions EF AP4 30.20 % GL Strain -9.8 % M-Mode Dimensions RVDd 4.43 cm (0.9-2.6) LVDd 5.63 cm (3.5-5.7) LVDs 4.95 cm (3.5-5.7) IVSd 1.01 cm (0.6-1.1) PWd 0.44 cm (0.6-1.1) EF (Teich) 25.80% FS 12.10% EDV (Teich) 155.60 mL ESV (Teich) 115.50 mL Other Information Study Quality: Fair Conclusion This is a limited TTE for evaluation of stroke post device placement. Limited windows were obtained. Ultrasound enhancing agent is administered. Agitated saline administration is also performed. The left ventricle is severely dilated. There is normal LV wall thickness. There is severe global hypokinesis present. The septum is asynchronous. LVEF is 25%. Administration of ultrasound enhancing agent demonstrates no evidence of LV thrombus. Agitated saline administration is indeterminate for the presence of interatrial shunt. Of note, migration of bubbles is noted from the RA/RV into the LA/LV, but the timing is indeterminate to distinguish between interatrial shunt vs. intrapulmonary shunt, as bubbles were already present in the RV at the time of image capture. Re-evaluation with repeat bubble study may be considered, if deemed clinically appropriate. Electronically signed by : Surekha Clements MD 08/09/2025 13:07:56
--- NOTE | 2025-08-09 09:37 | SW/DCPLANNER ---
I spoke w/ this patient regarding plans once medically stable for discharge. Patient stated that he resides at home alone. Patient expressed an interested in [facility] waiver services and is agreeable for information to be faxed to [facility]. I did provide patient w/ [facility] resource list as well.
[2025-08-09] MEDS: NICOTINE 21MG/24HR PATCH 21 MG TD (10:46)
--- NOTE | 2025-08-09 11:10 | EXP.CARD.CON ---
History of Present Illness History of Present Illness Consult date: 08/09/25 Requesting physician: Renato Wagner Chief complaint: AICD implant, Post procedure CVA Additional Medical History:: 1. CAD a. STEMI with JULIO to 1st OM (03/20/18): Dr. Cassandra stein. [facility], 08/2018, 10/2020, 07/2025, medical management 2. HFrEF a. Echo, 06/2024, EF 40%, grade 2 DD, mild RVE with mild reduced RV systolic function. RVSP 25-30 mmHg. No shunt B. Echo, 06/2025, EF 25%, grade 3 DD, RVSP 40-45 mmHg. C. Intolerant of Entresto and valsartan due to itching D. Gynecomastia on spironolactone E. Barrios INSURANCE FOLLOW UP REPRESENTATIVE-D implantation, 08/08/2025. Postop CVA. Treated medically. 3. Diabetes Mellitus Types 2 a. On Ozempic, A1c 6.2, 08/2024. 4. Congestive heart failure a. Echocardiogram (09/17). EF 50% LAE, LVH, DD. b. Echo with definity contrast, 04/2018, EF30% with hypokinetic septum, anteroapical, apical,inferior and inferobasal dash. 5. Hyperlipidemia a. STatin therapy 6. Essential hypertension. 7. Tobacco use a. Smokes 1 pack per day for unknown years. 8. Depression 9. Bipolar disorder 10. CKD, stage III 11. History of DVT, 12/2019 A. Transient use of Xarelto 12. History of recurrent GI bleed felt likely due to hemorrhoidal cushions and tags. A. Colonoscopy, 2020, Dr. Mcbride, moderate hemorrhoidal cushions and tags. No active bleeding. Profound spasticity and lack of relaxation. Inflammatory changes in and around ileocecal valve noted. 13. History of Monterroso's esophagus A. EGD, 06/2023, normal, Dr. Hubbard 14. Chronic idiopathic hypomagnesemia with intolerance to oral magnesium A. Receives IV magnesium as needed 15. History of paroxysmal atrial fibrillation A. On Xarelto therapy B. Event monitor, 01/2025, A-fib burden 3% with brief NSVT History of present illness: 60-year-old white male underwent outpatient implantation of INSURANCE FOLLOW UP REPRESENTATIVE-D yesterday for HFrEF with sustained cardiomyopathy despite medical therapy. Due to the length of the case the patient was kept for observation. Within a few hours postop he did developed visual disturbances which prompted a CT scan of the head revealing acute to subacute CVA. Patient describes his visual disturbance as losing 25% of his medial vision of the right eye. He previously has hemianopsia of the left eye. Dr. Fermín Bhagat at [facility] was called concerning the patient's case and after discussing with neurology initially wanted to treat this with aspirin and Plavix but then decided on aspirin only after talking with Dr. García. They did recommend starting Xarelto but patient takes this on a daily basis anyways for history of atrial fibrillation. He did hold 2 doses of it prior to implantation of his INSURANCE FOLLOW UP REPRESENTATIVE-D, however this will be restarted. This a.m. with patient's visual symptoms seem to be stable may be slightly improved compared to yesterday. [facility] Disclaimer: The information contained in this section may have been updated after the patient was seen, as this information can be updated by other users. Medical History Atypical angina Dyspnea Encounter for pre-operative cardiovascular clearance Hyponatremia Hypocalcemia Fusion of fourth and fifth metacarpals Gout of right knee Bakers cyst Pain around toenail, left foot Scrotal swelling Epididymitis Femur fracture Scrotal edema CHF (congestive heart failure) Acute on chronic heart failure Edema Diabetes mellitus History of sinus problem Hypothyroidism Glaucoma Anxiety and depression Hypomagnesemia PTSD (post-traumatic stress disorder) Renal insufficiency GERD (gastroesophageal reflux disease) Myocardial infarct HLD (hyperlipidemia) HTN (hypertension) DVT (deep venous thrombosis) CAD (coronary artery disease) CHF (congestive heart failure) Cardiomyopathy Type 2 diabetes mellitus with complication, without long-term current use of insulin Typical angina CKD (chronic kidney disease) 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 Cough Otitis media, left Bronchitis Hyperlipidemia associated with type 2 diabetes mellitus Surgical History S/P ORIF (open reduction internal fixation) fracture femur-left History of cholecystectomy History of heart artery stent S/P drug eluting coronary stent placement Family History Other Family history of cancer Family history of diabetes mellitus type II Family history of hypertension Social History Smoking Status: Current every day smoker tobacco type: cigarettes packs per day: 1 pack-years: 40 second hand exposure: No alcohol intake: current alcohol intake frequency: a few times a month substance use type: former substance user and marijuana current occupational status: disabled Travel in the last 8 weeks?: None household members: none housing: apartment lives independently: Yes marital status: single education level: high school service: No long-term: No current occupational exposures/hazards: No caffeine: Yes special veronica needs: No agree to transfusion: No do you feel safe at home: Yes victim of physical abuse: No victim of emotional abuse: No victim of sexual abuse: No would you like helpful sources: No Review of Systems Review of Systems Review of systems:: pertinent systems reviewed and negative unless documented below Eyes Eyes: Reports blind spots and Reports change in vision *Cardiovascular Cardiovascular: Denies chest pain and Reports dyspnea on exertion *Respiratory Respiratory: Reports dyspnea on exertion *Neurologic Neurologic: Reports system reviewed and no additional complaints, except as documented Exam Data for Last 24 hours Vital signs and Labs for Last 24 Hours: Temp Pulse Resp BP Pulse Ox O2 Del Method 97.8 F 70 16 123/79 97 Room Air 08/09/25 04:00 08/09/25 04:00 08/09/25 04:00 08/09/25 04:00 08/09/25 04:00 08/09/25 06:46 Laboratory Results - last 24 hr 08/08/25 10:03: Sodium 136, Potassium 4.5, Chloride 97 L, Carbon Dioxide 25, Anion Gap 18.5 H, BUN 54 H, Creatinine 2.40 H, Estimated GFR 28 L, Est GFR ( Amer) 34 L, Glucose 110 H, Calcium 9.3 08/09/25 00:35: Hgb 11.7 L, Hct 38.4 L 08/09/25 05:43: WBC 8.0, RBC 5.02, Hgb 11.3 L, Hct 37.7 L, MCV 75.1 L, MCH 22.5 L, MCHC 30.0 L, RDW 23.1 H, Plt Count 210 D, MPV 9.2, Neut % (Auto) 72.2, Lymph % (Auto) 14.3, [place] % (Auto) 11.1 H, Eos % (Auto) 1.9, Baso % (Auto) 0.4, Neut # (Auto) 5.8, Lymph # (Auto) 1.2, [place] # (Auto) 0.9, Eos # (Auto) 0.2, Baso # (Auto) 0.0, Sodium 135 L, Potassium 4.6, Chloride 103, Carbon Dioxide 25, Anion Gap 11.6, BUN 42 H, Creatinine 2.10 H, Estimated Creat Clear 59, Estimated GFR 32 L, Est GFR ( Amer) 39 L, Glucose 109 H, Calcium 8.4 I & O for Last 24 hours: Intake & Output 08/06/25 08/07/25 08/08/25 08/09/25 11:59 11:59 11:59 11:59 Intake Total 3350 / 3350 Output Total 1000 / 1000 Balance 2350 / 2350 Weight 244 lb 4.8 oz Constitutional Constitutional: no acute distress *Routine Respiratory Exam Respiratory: Present CTA bilaterally *Routine Cardiovascular Exam Cardiovascular: Present RRR; Absent murmur, gallop or rubs Meds Home Medications and Allergies Home Medications ?Medication ?Instructions ?Recorded ?Confirmed ?Type albuterol sulfate 90 mcg/actuation 1 - 2 puff inhalation Q4HP PRN 10/22/22 08/08/25 History aerosol inhaler (ProAir HFA) asthma triamcinolone acetonide 0.1 % 1 applic topical QID PRN itching 04/05/23 08/08/25 Rx topical cream #454 grams blood sugar diagnostic (OneTouch 06/03/23 08/08/25 History Verio test strips) blood-glucose meter 06/03/23 08/08/25 History lancets 33 gauge 06/03/23 08/08/25 History loratadine 10 mg tablet 10 mg PO DAILY PRN allergies 06/17/23 08/08/25 History nitroglycerin 0.4 mg sublingual 0.4 mg sublingual NEEDED PRN 09/14/23 08/08/25 Rx tablet Chest Pain #25 tabs blood-glucose sensor (FreeStyle #1 ea 08/01/24 08/08/25 Rx Deyvi 3 Plus Sensor device) flash glucose scanning reader #1 ea 08/01/24 08/08/25 Rx (FreeStyle Deyvi 2 Arthur) ammonium lactate 12 % topical cream 1 applic topical BID dry skin, 11/28/24 08/08/25 Rx callus care #385 grams fluticasone propionate 50 1 spray intranasal DAILY PRN 04/04/25 08/08/25 History mcg/actuation nasal Allergy Symptoms spray,suspension hydroxyzine HCl 50 mg tablet 50 mg PO TID PRN Itching 04/04/25 08/08/25 History linaclotide 145 mcg capsule 145 mcg PO DAILY PRN Constipation 04/04/25 08/08/25 History (Linzess) lidocaine 5 % topical ointment 1 applic topical TID PRN pain #50 04/06/25 08/08/25 Rx grams febuxostat 80 mg tablet 80 mg PO DAILY #90 tabs 04/10/25 08/08/25 Rx magnesium sulfate 500 mg/mL (50 %) 2 g (4 mL) IV WEEKLY Supplement 05/11/25 08/08/25 Rx injection solution #50 mL losartan 25 mg tablet 25 mg PO DAILY #30 tabs 07/04/25 08/08/25 Rx nicotine (polacrilex) 2 mg buccal 2 mg buccal Q6H PRN nicotine 07/27/25 08/08/25 Rx lozenge cravings #72 ea nicotine 14 mg/24 hr daily 1 patch transdermal DAILY #14 ea 07/27/25 08/08/25 Rx transdermal patch budesonide-formoterol HFA 160 2 puff inhalation BID 08/08/25 08/08/25 History mcg-4.5 mcg/actuation aerosol inhaler (Symbicort) colchicine 0.6 mg tablet 0.6 mg PO DAILY PRN gout 08/08/25 08/08/25 History eplerenone 25 mg tablet 25 mg PO DAILY 08/08/25 08/08/25 History famotidine 40 mg tablet 40 mg PO BID 08/08/25 08/08/25 History levothyroxine 50 mcg tablet 50 mcg PO DAILY 08/08/25 08/08/25 History pantoprazole 40 mg tablet,delayed 40 mg PO DAILY 08/08/25 08/08/25 History release probenecid 500 mg tablet 500 mg PO BID PRN gout 08/08/25 08/08/25 History rivaroxaban 15 mg tablet (Xarelto) 15 mg PO DAILY 08/08/25 08/08/25 History sennosides 8.6 mg tablet (senna) 17.2 mg PO BID PRN Constipation 08/08/25 08/08/25 History bisoprolol fumarate 5 mg tablet 15 mg PO DAILY 08/09/25 08/09/25 History clopidogrel 75 mg tablet 75 mg PO DAILY 08/09/25 08/08/25 History magnesium chloride 64 mg 64 mg PO BID 08/09/25 08/09/25 History (magnesium chloride) tablet,delayed release sitagliptin phosphate 100 mg 100 mg PO DAILY 08/09/25 08/09/25 History tablet (Januvia) torsemide 20 mg tablet 20 mg PO DAILY 30 days #30 tabs 08/09/25 Rx New Prescriptions to Start Prescriptions: torsemide Renato Wagner Allergies Allergy/AdvReac Type Severity Reaction Status Date / Time sacubitril (From Entresto) Allergy Mild itching Verified 07/31/25 15:38 valsartan (From Entresto) Allergy Mild itching Verified 07/31/25 15:38 amiodarone AdvReac Mild Nausea Verified 07/31/25 15:38 spironolactone AdvReac Mild gynecomasti Verified 07/31/25 15:38 a Assessment and Plan *Assessment and plan (1) Cerebral infarct: Status: Acute Qualifiers: Cerebral infarction mechanism: unspecified mechanism Qualified Code(s): I63.9 - Cerebral infarction, unspecified Category: Medical Code(s): I63.9 - Cerebral infarction, unspecified (2) Paroxysmal atrial fibrillation: Problem Comment: On [place] Status: Chronic Category: Medical Code(s): I48.0 - Paroxysmal atrial fibrillation (3) Cardiac resynchronization therapy defibrillator (INSURANCE FOLLOW UP REPRESENTATIVE-D) in place: Status: Acute Category: Medical Code(s): Z95.810 - Presence of automatic (implantable) cardiac defibrillator (4) Ischemic cardiomyopathy: Status: Acute Category: Medical Code(s): I25.5 - Ischemic cardiomyopathy (5) CAD (coronary artery disease): Status: Chronic Qualifiers: Associated angina: without angina Coronary Disease-Associated Artery/Lesion type: [place] artery [place] vs. transplanted heart: [place] heart Qualified Code(s): I25.10 - Atherosclerotic heart disease of [place] coronary artery without angina pectoris Category: Medical Code(s): I25.10 - Atherosclerotic heart disease of [place] coronary artery without angina pectoris (6) HTN (hypertension): Status: Chronic Qualifiers: Hypertension type: primary hypertension Qualified Code(s): I10 - Essential (primary) hypertension Category: Medical Code(s): I10 - Essential (primary) hypertension (7) Chronic kidney disease (CKD) stage G3b/A1, moderately decreased glomerular filtration rate (GFR) between 30-44 mL/min/1.73 square meter and albuminuria creatinine ratio less than 30 mg/g: Status: Acute Category: Medical Code(s): N18.32 - Chronic kidney disease, stage 3b (8) Diabetic neuropathy: Status: Acute Qualifiers: Diabetes mellitus complication detail: with other neurological complication Diabetes mellitus type: type 2 Qualified Code(s): E11.49 - Type 2 diabetes mellitus with other diabetic neurological complication Category: Medical Code(s): E11.40 - Type 2 diabetes mellitus with diabetic neuropathy, unspecified (9) Hypomagnesemia: Status: Chronic Category: Medical Code(s): E83.42 - Hypomagnesemia (10) Type 2 diabetes mellitus: Status: Chronic Qualifiers: Chronic kidney disease stage: stage 3 (moderate) Chronic kidney disease stage 3 subtype: stage 3b (GFR 30-44) Diabetes mellitus complication detail: with chronic kidney disease Diabetes mellitus complication status: with kidney complications Diabetes mellitus prison insulin use: without prison use Qualified Code(s): E11.22 - Type 2 diabetes mellitus with diabetic chronic kidney disease; N18.32 - Chronic kidney disease, stage 3b Category: Medical Code(s): E11.9 - Type 2 diabetes mellitus without complications (11) Tobacco use disorder: Status: Chronic Category: Medical Code(s): F17.200 - Nicotine dependence, unspecified, uncomplicated Plan 1. Acute/subacute CVA with right visual disturbances. Known enchephalopathy related to prior CVA's with left hemianopsia. -Continue aspirin -Restart Xarelto therapy 2. HFrEF with recent EF 25% -Continue bisoprolol, eplerenone and losartan therapy 3. CAD with prior coronary stenting -Clinically stable -Continue aspirin 81 mg daily 4. Paroxysmal atrial fibrillation -Resume Xarelto therapy 5. Diabetes mellitus with history of diabetic neuropathy -check Hgb A1C -on 6. CKD, stage III -Baseline creatinine around 2 7. Chronic hypomagnesemia -replace 8. Tobacco use -cessation recommended Echo with bubble study to look for PFO--difficult study with intermediate risk. Repeat study positive for PFO/shunt. Will get venous dopplers now and if positive then will need loading of Xarelto. If venous dopplers normal, then just resume Xarelto 15 mg daily with strict encouragement of compliance. Follow up in office in one week. Can't have brain MRI for at least 6 wks due to new INSURANCE FOLLOW UP REPRESENTATIVE-D implant. Home meds: Aspirin 81 mg daily Xarelto 15 mg daily Bisoprolol 15 mg daily Eplerenone 25 mg daily Losartan 25 mg daily Torsemide 20 mg daily Stop Plavix.
[2025-08-09 12:00] VITALS: PULSE 70
[2025-08-09] MEDS: HYDROCODONE/APAP 5/325 MG TABLET 1 TAB PO (12:03)
[2025-08-09] MEDS: humaLOG 100 UNITS/ML 10ML VIAL (SSI) SUBCUT (12:04)
[2025-08-09] MEDS: FAMOTIDINE 20MG TABLET 40 MG PO (12:34)
[2025-08-09] MEDS: PANTOPRAZOLE 40MG TABLET 40 MG PO (12:34)
[2025-08-09 12:39] LABS: Hemoglobin A1C 6.8 % (4.0-6.0)
--- NOTE | 2025-08-09 13:24 | CT_ITS ---
FINAL REPORT TECHNIQUE: Thin section axial images are obtained through the brain after intravenous contrast injection. Multiplanar reconstructions were obtained from the axial data. Exam was performed using dose reduction techniques such as automated exposure control, adjustment of the mA and kV according to patient size, and use of iterative reconstruction technique. CLINICAL HISTORY: stroke COMPARISON: none FINDINGS: The intracerebral portions of the carotid arteries are patent. The anterior and middle cerebral arteries are patent without stenosis or occlusion. The posterior cerebral arteries are patent. The basilar artery is patent. The vertebral arteries are patent. There is no significant stenosis, aneurysm, or AVM. IMPRESSION: Unremarkable CT angiogram of the intracerebral vasculature. Reviewed, Interpreted and Dictated by Mae Granados MD Transcribed by Shabnam Banuelos Authenticated and [facility]
--- NOTE | 2025-08-09 13:24 | CT_ITS ---
FINAL REPORT TECHNIQUE: Thin section axial images were obtained from the aortic arch to the skull base after intravenous contrast injection per CTA protocol. Multiplanar reconstruction images were obtained. Exam was performed using dose reduction techniques and the ALARA principle. CLINICAL HISTORY: stroke COMPARISON: None FINDINGS: CTA NECK: Aortic arch: There is a normal three-vessel configuration to the aortic arch. There is no significant stenosis of the great vessels at their origins. Right carotid artery: The right common carotid artery is patent without stenosis. Calcified plaque of the right carotid bulb with 50% stenosis. Remaining portions of the right internal carotid artery are patent to the skull base. Left carotid artery: The left common carotid artery is patent without stenosis. The cervical portions of the left internal carotid artery are patent to the skull base without stenosis. 0% stenosis per NASCET criteria. Vertebral arteries: The vertebral arteries are patent throughout. No significant stenosis. Other soft tissues: . IMPRESSION: 50% stenosis right internal carotid artery. 0% stenosis left internal carotid artery. Vertebral arteries are patent throughout. Reviewed, Interpreted and Dictated by Mae Granados MD Transcribed by Shabnam Banuelos Authenticated and [facility]
--- NOTE | 2025-08-09 13:43 | HMH.ITSTN ---
WENT TO GET PATIENT, VASCULAR LAB WAS WITH PATIENT AND STATED PATIENT NEEDED A NEW IV. NURSING WILL CALL WHEN READY
--- NOTE | 2025-08-09 14:12 | HMH.OTEV ---
OT Evaluation Rehab OT IP Evaluation Start: 08/09/25 11:12 Freq: ONCE Status: Active Protocol: [facility]: 08/09/25 14:12 [facility] [id number]) Rehab OT IP Assessment Subjective History Pt oriented x 3 on arrival. Pt agreeable to engage in therapy evaluation. Pt admitted on 08/08/25 following a pacemaker placement. History and physical: This is a 60-year-old male who has a past medical history significant for angina, hyponatremia, hypocalcemia, Langley's cyst, epididymitis, scrotal edema , congestive heart failure (HFrEF), diabetes, hypothyroidism, anxiety, depression, PTSD, chronic kidney disease, [place], DVT, coronary artery disease, cardiomyopathy, and bronchitis who is status post pacemaker placement. Patient has a history of chronic kidney disease, so patient financial advocate wanted to observe patient overnight. Due to these recommendations, patient has been admitted for further management. Subjective Pt reports prior to being in the hospital, pt lived at home alone. Pt claims he is normally independent with all ADLs and IADLs. He does not require any type of AE . He also still drives. Objective Patient Orientation Person,Place,Birthday Right Upper WFL Extremity Gross ROM Left Upper Extremity Min Limitation <25% Gross ROM Bed Mobility bed mobility-scooting,bed mobility - supine/sit Assist Level Supervision/Stand by Transfer Training Sit/Stand Transfer Assist Level Supervision/Stand by Chair Transfer Supervision/Stand by Ability Chair Transfer Sit to/from Ambulatory Technique Chair Transfer None Assistive Devices Lower Body Dressing Standby Assistance Ability Performing Toilet Standby Assistance Hygiene Ability Overall Commode/ Standby Assistance Toilet Transfer Ability Commode/Toilet Sit to/from Ambulatory Transfer Technique Rehab OT IP prob,goals,plan Problems Date of Evaluation: 08/09/25 Rehab Potential Rehab Potential Innapropriate for Skilled Therapy Discharge Plan OT Discharge Plan Pt appears to be at his baseline with functional transfers and ADL independence. Pt can return home once he is medically stable per physician. Eval Complexity Eval Charge Codes 66197 - Moderate Complexity PHYSICIAN CERTIFICATION: I certify the specified therapy services for Vishal A Guerra are required, authorized, and reviewed every 30 days.
[2025-08-09] MEDS: 0.9 % SODIUM CHLORIDE 50 ML VIAL IV (14:22)
[2025-08-09] MEDS: SODIUM CHLORIDE 0.9% 10ML SYR (RAD ONLY) 10 ML IV (14:22)
[2025-08-09] MEDS: IOPAMIDOL-370 (76%);100ML BOTTLE 80 ML IV (14:22)
--- NOTE | 2025-08-09 14:33 | CA_ITS ---
FINAL REPORT CLINICAL HISTORY: Hx-DVT, S/p Stroke COMPARISON: None FINDINGS: DUPLEX VENOUS SONOGRAPHY OF THE BILATERAL LOWER EXTREMITIES Multiple transverse and longitudinal scans were performed of the femoropopliteal deep venous systems, with augmentation and compression maneuvers. HISTORY: Pain history of stroke FINDINGS: Normal phasic flow was noted in the visualized deep venous systems. No intraluminal increased echogenicity is noted to suggest thrombus. There is normal compression and augmentation of the venous structures. No abnormal venous collaterals are seen. IMPRESSION: No evidence of deep venous thrombosis of the bilateral lower extremities. Reviewed, Interpreted and Dictated by Mae Granados MD Transcribed by Leah Fraser Authenticated and [facility]
--- NOTE | 2025-08-09 15:27 | EXP.DC.SUM ---
General Admission date:: 08/08/25 HPI HPI HPI: This is a 60-year-old male who has a past medical history significant for angina, hyponatremia, hypocalcemia, Langley's cyst, epididymitis, scrotal edema, congestive heart failure (HFrEF), diabetes, hypothyroidism, anxiety, depression, PTSD, chronic kidney disease, VT, DVT, coronary artery disease, cardiomyopathy, and bronchitis who is status post pacemaker placement. Patient has a history of chronic kidney disease, so binding cutter wanted to observe patient overnight. Due to these recommendations, patient has been admitted for further management. During my evaluation of patient, patient states that he has postoperative pain. He was given oral pain medication prior to leaving the Information Specialist. Currently denies any chest pain, lightheadedness, dizziness, fever, chills, rigors, nausea, vomiting, or diarrhea. Hospital Course Hospital Course Hospital Course: Vishal Guerra is a 60-year-old male who presented as an outpatient BiV ICD/CONSERVATION OF RESOURCES COMMISSIONER-D placement. Hospital course complicated by acute/subacute CVA. #Chronic HFrEF #CAD with stents ? Known LVEF 25%. No signs of volume overload today. ? S/p CONSERVATION OF RESOURCES COMMISSIONER-D on 08/08/2025, patient tolerated procedure well. However, began to complain of visual disturbances about 3 hours later. ? Continue home eplerenone, losartan, torsemide 20 mg, bisoprolol. ? Follow-up with cardiology within 1 week. 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 Patient began to have visual disturbances 3 hours after AICD was placed. No other focal neurological deficits. ? CT head on 08/08/2025 showed right occipital CVA. CTA head/neck did not show significant large vessel occlusions. ? [facility] was consulted, recommended aspirin 81 mg and continuing Xarelto. Did not recommend thrombolytics as patient just had a procedure. ? Patient states his left-sided numbness hemianopia is slightly worse, but also states he is now having some colorblindness. Of note, patient had held his Plavix and Xarelto 3 days prior to his scheduled procedure which likely contributed. ? An ECHO was suggestive of PFO. Venous Dopplers negative for DVT. ? Started aspirin 81 mg, continue home Xarelto 20 mg daily. Discontinue Plavix. ? Follow-up with PCP within 1 week. #COPD ? Continue home Symbicort. #GERD ? Continue home famotidine. #Hypothyroidism ? Continue home levothyroxine 50 mcg. TFT stable. Total time spent on discharge: 32 minutes on chart review, counseling, documentation, and direct care with patient. Exam Data for Last 24 hours Vital signs and Labs for Last 24 Hours: Temp Pulse Resp BP Pulse Ox O2 Del Method 97.8 F 70 16 123/79 100 Room Air 08/09/25 04:00 08/09/25 12:00 08/09/25 04:00 08/09/25 04:00 08/09/25 08:35 08/09/25 15:00 Laboratory Results - last 24 hr 08/09/25 00:35: Hgb 11.7 L, Hct 38.4 L 08/09/25 05:43: WBC 8.0, RBC 5.02, Hgb 11.3 L, Hct 37.7 L, MCV 75.1 L, MCH 22.5 L, MCHC 30.0 L, RDW 23.1 H, Plt Count 210 D, MPV 9.2, Neut % (Auto) 72.2, Lymph % (Auto) 14.3, [place] % (Auto) 11.1 H, Eos % (Auto) 1.9, Baso % (Auto) 0.4, Neut # (Auto) 5.8, Lymph # (Auto) 1.2, [place] # (Auto) 0.9, Eos # (Auto) 0.2, Baso # (Auto) 0.0, Sodium 135 L, Potassium 4.6, Chloride 103, Carbon Dioxide 25, Anion Gap 11.6, BUN 42 H, Creatinine 2.10 H, Estimated Creat Clear 59, Estimated GFR 32 L, Est GFR ( Amer) 39 L, Glucose 109 H, Hemoglobin A1c 6.8 H, Calcium 8.4 I & O for Last 24 hours: Intake & Output 08/06/25 08/07/25 08/08/25 08/09/25 23:59 23:59 23:59 23:59 Intake Total 2050 / 2350 1660 / 1660 Output Total 600 / 700 750 / 750 Balance 1450 / 1650 910 / 910 Weight 111.697 kg 110.813 kg Constitutional Constitutional: no acute distress and chronically ill appearing *Routine HEENT Exam Head: Present normocephalic Eye: Present EOMI and PERRL ENT: Present mucous membranes moist *Routine Neck Exam Neck: Present supple; Absent lymphadenopathy *Routine Respiratory Exam Respiratory: Present CTA bilaterally *Routine Cardiovascular Exam Cardiovascular: Present RRR *Routine Abdominal Exam Abdominal: Present soft and normoactive bowel sounds; Absent tenderness *Routine Extremities Exam Extremities: Absent cyanosis, clubbing or edema *Routine Skin Exam Skin: Present warm; Absent rash *Routine Neurological Exam Neurological: Present alert and oriented X3 Comments: Left-sided arm homonymous hemianopia Results Data Completed and Pending Labs on day of discharge: Labs from last 24 hours 08/09/25 08/09/25 05:43 00:35 WBC 8.0 RBC 5.02 Hgb 11.3 L 11.7 L Hct 37.7 L 38.4 L MCV 75.1 L MCH 22.5 L MCHC 30.0 L RDW 23.1 H Plt Count 210 D MPV 9.2 Neut % (Auto) 72.2 Lymph % (Auto) 14.3 [place] % (Auto) 11.1 H Eos % (Auto) 1.9 Baso % (Auto) 0.4 Neut # (Auto) 5.8 Lymph # (Auto) 1.2 [place] # (Auto) 0.9 Eos # (Auto) 0.2 Baso # (Auto) 0.0 Sodium 135 L Potassium 4.6 Chloride 103 Carbon Dioxide 25 Anion Gap 11.6 BUN 42 H Creatinine 2.10 H Estimated Creat Clear 59 Estimated GFR 32 L Est GFR ( Amer) 39 L Glucose 109 H Hemoglobin A1c 6.8 H Calcium 8.4 DS: Diagnosis Discharge Diagnosis (1) Cerebral infarct: Status: Acute Code(s): I63.9 - Cerebral infarction, unspecified Qualifiers: Cerebral infarction mechanism: unspecified mechanism Qualified Code(s): I63.9 - Cerebral infarction, unspecified (2) Paroxysmal atrial fibrillation: Status: Chronic Code(s): I48.0 - Paroxysmal atrial fibrillation Problem details: On Xarelto (3) Cardiac resynchronization therapy defibrillator (CON[employer] RES[employer] COMMISSIONER-D) in place: Status: Acute Code(s): Z95.810 - Presence of automatic (implantable) cardiac defibrillator (4) Ischemic cardiomyopathy: Status: Acute Code(s): I25.5 - Ischemic cardiomyopathy (5) CAD (coronary artery disease): Status: Chronic Code(s): I25.10 - Atherosclerotic heart disease of [place] coronary artery without angina pectoris Qualifiers: Associated angina: without angina Coronary Disease-Associated Artery/Lesion type: [place] artery [place] vs. transplanted heart: [place] heart Qualified Code(s): I25.10 - Atherosclerotic heart disease of [place] coronary artery without angina pectoris (6) HTN (hypertension): Status: Chronic Code(s): I10 - Essential (primary) hypertension Qualifiers: Hypertension type: primary hypertension Qualified Code(s): I10 - Essential (primary) hypertension (7) Chronic kidney disease (CKD) stage G3b/A1, moderately decreased glomerular filtration rate (GFR) between 30-44 mL/min/1.73 square meter and albuminuria creatinine ratio less than 30 mg/g: Status: Acute Code(s): N18.32 - Chronic kidney disease, stage 3b (8) Diabetic neuropathy: Status: Acute Code(s): E11.40 - Type 2 diabetes mellitus with diabetic neuropathy, unspecified Qualifiers: Diabetes mellitus complication detail: with other neurological complication Diabetes mellitus type: type 2 Qualified Code(s): E11.49 - Type 2 diabetes mellitus with other diabetic neurological complication (9) Hypomagnesemia: Status: Chronic Code(s): E83.42 - Hypomagnesemia (10) Type 2 diabetes mellitus: Status: Chronic Code(s): E11.9 - Type 2 diabetes mellitus without complications Qualifiers: Chronic kidney disease stage: stage 3 (moderate) Chronic kidney disease stage 3 subtype: stage 3b (GFR 30-44) Diabetes mellitus complication detail: with chronic kidney disease Diabetes mellitus complication status: with kidney complications Diabetes mellitus snf insulin use: without intermediate accountant use Qualified Code(s): E11.22 - Type 2 diabetes mellitus with diabetic chronic kidney disease; N18.32 - Chronic kidney disease, stage 3b (11) Tobacco use disorder: Status: Chronic Code(s): F17.200 - Nicotine dependence, unspecified, uncomplicated Meds Home Medications and Allergies Home Medications ?Medication ?Instructions ?Recorded ?Confirmed ?Type albuterol sulfate 90 mcg/actuation 1 - 2 puff inhalation Q4HP PRN 10/22/22 08/15/25 History aerosol inhaler (ProAir HFA) asthma triamcinolone acetonide 0.1 % 1 applic topical QID PRN itching 04/05/23 08/15/25 Rx topical cream #454 grams blood sugar diagnostic (OneTouch 06/03/23 08/15/25 History Verio test strips) blood-glucose meter 06/03/23 08/15/25 History lancets 33 gauge 06/03/23 08/15/25 History loratadine 10 mg tablet 10 mg PO DAILY PRN allergies 06/17/23 08/15/25 History nitroglycerin 0.4 mg sublingual 0.4 mg sublingual NEEDED PRN 09/14/23 08/15/25 Rx tablet Chest Pain #25 tabs blood-glucose sensor (FreeStyle #1 ea 08/01/24 08/15/25 Rx Deyvi 3 Plus Sensor device) flash glucose scanning reader #1 ea 08/01/24 08/15/25 Rx (FreeStyle Deyvi 2 [place]) ammonium lactate 12 % topical cream 1 applic topical BID dry skin, 11/28/24 08/15/25 Rx callus care #385 grams fluticasone propionate 50 1 spray intranasal DAILY PRN 04/04/25 08/15/25 History mcg/actuation nasal Allergy Symptoms spray,suspension hydroxyzine HCl 50 mg tablet 50 mg PO TID PRN Itching 04/04/25 08/15/25 History linaclotide 145 mcg capsule 145 mcg PO DAILY PRN Constipation 04/04/25 08/15/25 History (Linzess) lidocaine 5 % topical ointment 1 applic topical TID PRN pain #50 04/06/25 08/15/25 Rx grams febuxostat 80 mg tablet 80 mg PO DAILY #90 tabs 04/10/25 08/15/25 Rx magnesium sulfate 500 mg/mL (50 %) 2 g (4 mL) IV WEEKLY Supplement 05/11/25 08/15/25 Rx injection solution #50 mL losartan 25 mg tablet 25 mg PO DAILY #30 tabs 07/04/25 08/15/25 Rx nicotine (polacrilex) 2 mg buccal 2 mg buccal Q6H PRN nicotine 07/27/25 08/15/25 Rx lozenge cravings #72 ea nicotine 14 mg/24 hr daily 1 patch transdermal DAILY #14 ea 07/27/25 08/15/25 Rx transdermal patch budesonide-formoterol HFA 160 2 puff inhalation BID 08/08/25 08/15/25 History mcg-4.5 mcg/actuation aerosol inhaler (Symbicort) colchicine 0.6 mg tablet 0.6 mg PO DAILY PRN gout 08/08/25 08/15/25 History eplerenone 25 mg tablet 25 mg PO DAILY 08/08/25 08/15/25 History famotidine 40 mg tablet 40 mg PO BID 08/08/25 08/15/25 History levothyroxine 50 mcg tablet 50 mcg PO DAILY 08/08/25 08/15/25 History pantoprazole 40 mg tablet,delayed 40 mg PO DAILY 08/08/25 08/15/25 History release probenecid 500 mg tablet 500 mg PO BID PRN gout 08/08/25 08/15/25 History sennosides 8.6 mg tablet (senna) 17.2 mg PO BID PRN Constipation 08/08/25 08/15/25 History aspirin 81 mg tablet,delayed 81 mg PO DAILY 30 days #30 tabs 08/09/25 08/15/25 Rx release hydrocodone 5 mg-acetaminophen 325 1 tab PO Q6H PRN pain #14 tabs 08/09/25 08/15/25 Rx mg tablet magnesium chloride 64 mg 64 mg PO BID 08/09/25 08/15/25 History (magnesium chloride) tablet,delayed release torsemide 20 mg tablet 20 mg PO DAILY 30 days #30 tabs 08/09/25 08/15/25 Rx rivaroxaban 15 mg tablet (Xarelto) 15 mg PO DAILY 30 days #30 tabs 08/16/25 Rx sitagliptin phosphate 100 mg See Rx Instructions .Route 08/16/25 Rx tablet (Januvia) .COMPLEX #90 tabs bisoprolol fumarate 10 mg tablet 5 mg PO AM High Blood Pressure 08/20/25 08/20/25 History bisoprolol fumarate 10 mg tablet 10 mg PO PM High Blood Pressure 08/20/25 08/20/25 History New Prescriptions to Start Prescriptions: Renato Lassiter hydrocodone-acetaminophen Bernard,Renato torsemide Bernard,Renato Allergies Allergy/AdvReac Type Severity Reaction Status Date / Time sacubitril (From Entresto) Allergy Mild itching Verified 08/20/25 12:40 valsartan (From Entresto) Allergy Mild itching Verified 08/20/25 12:40 amiodarone AdvReac Mild Nausea Verified 08/20/25 12:40 spironolactone AdvReac Mild gynecomasti Verified 08/20/25 12:40 a Discharge Plan Disposition Patient Disposition: Home, Self-Care Condition: Fair Follow up Plan Follow up with: Mingo García MD [Staff Physician, Cardiology] - 08/15/25 1:00 pm Prescriptions/Medication Reconciliation: New aspirin 81 mg Tablet,Delayed Release (Dr/Ec) 81 mg PO DAILY 30 Days Qty: 30 0RF hydrocodone-acetaminophen 5-325 mg tablet 1 tab PO Q6H PRN (Reason: pain) Qty: 14 0RF Continued triamcinolone acetonide 0.1 % cream 1 applic topical QID PRN (Reason: itching) Qty: 454 0RF ammonium lactate 12 % cream 1 applic topical BID Qty: 385 1RF (DME) FreeStyle Deyvi 3 Plus Sensor Device See Rx Instructions .Route Qty: 1 0RF Rx Instructions: As directed (DME) FreeStyle Deyvi 2 [place] Misc See Rx Instructions .Route Qty: 1 0RF Rx Instructions: As directed losartan 25 mg tablet 25 mg PO DAILY Qty: 30 5RF nicotine 14 mg/24 hr patch 24 hour 1 patch transdermal DAILY Qty: 14 0RF nicotine (polacrilex) 2 mg lozenge 2 mg buccal Q6H PRN (Reason: nicotine cravings) Qty: 72 0RF nitroglycerin 0.4 mg tablet, sublingual 0.4 mg SL NEEDED PRN (Reason: Chest Pain) Qty: 25 3RF Rx Instructions: DISSOLVE 1 TABLET UNDER THE TONGUE EVERY 5 TO 15 MINUTES NEEDED FOR CHEST PAIN. IF NO RELIEF AFTER 3 DOSES CALL 911 lidocaine 5 % ointment 1 applic topical TID PRN (Reason: pain) Qty: 50 1RF febuxostat 80 mg tablet 80 mg PO DAILY Qty: 90 0RF Rx Instructions: TAKE 1 TABLET BY MOUTH ONCE A DAY magnesium sulfate 500 mg/mL (50 %) solution 2 g IV WEEKLY Qty: 50 0RF albuterol sulfate [ProAir HFA] 90 mcg/actuation HFA aerosol inhaler 1 - 2 puff inhalation Q4HP PRN (Reason: asthma) Rx Instructions: INHALE 2 PUFFS BY MOUTH EVERY 4 TO 6 HOURS NEEDED SHORTNESS OF BREATH OR WHEEZING sennosides [senna] 8.6 mg tablet 17.2 mg PO BID PRN (Reason: Constipation) famotidine 40 mg tablet 40 mg PO BID Rx Instructions: TAKE ONE TABLET BY MOUTH 2 TIMES A DAY FOR ACID REFLUX levothyroxine 50 mcg tablet 50 mcg PO DAILY Rx Instructions: TAKE ONE TABLET BY MOUTH ONCE A DAY pantoprazole 40 mg tablet,delayed release (DR/EC) 40 mg PO DAILY Rx Instructions: TAKE ONE TABLET BY MOUTH ONCE A DAY colchicine 0.6 mg tablet 0.6 mg PO DAILY PRN (Reason: gout) Rx Instructions: TAKE ONE TABLET BY MOUTH ONCE A DAY FOR GOUT, states its PRN, ordered like this for insurance purposes eplerenone 25 mg tablet 25 mg PO DAILY Rx Instructions: TAKE 1 TABLET BY MOUTH ONCE A DAY budesonide-formoterol [Symbicort] 160-4.5 mcg/actuation HFA aerosol inhaler 2 puff inhalation BID Rx Instructions: INHALE 2 PUFFS BY MOUTH 2 TIMES A DAY FOR SHORTNESS OF BREATH probenecid 500 mg tablet 500 mg PO BID PRN (Reason: gout) magnesium chloride 64 mg tablet,delayed release (DR/EC) 64 mg PO BID Patient Comments: TAKE 1 TABLET BY MOUTH 2 TIMES A DAY torsemide 20 mg tablet 20 mg PO DAILY 30 Days Qty: 30 0RF (DME) blood-glucose meter Misc See Rx Instructions .ROUTE .MEDSUPPLY Rx Instructions: As directed (DME) OneTouch Verio test strips Strip See Rx Instructions .ROUTE .MEDSUPPLY Rx Instructions: Check Glucose 4 times daily (DME) lancets 33 gauge misc See Rx Instructions .ROUTE .MEDSUPPLY Rx Instructions: Check Glucose 4 times daily loratadine 10 mg tablet 10 mg PO DAILY PRN (Reason: allergies) hydroxyzine HCl 50 mg tablet 50 mg PO TID PRN (Reason: Itching) Rx Instructions: TAKE ONE TABLET BY MOUTH 3 TIMES A DAY NEEDED FOR ITCHING fluticasone propionate 50 mcg/actuation spray,suspension 1 spray intranasal DAILY PRN (Reason: Allergy Symptoms) Rx Instructions: USE 1 SPRAY IN EACH NOSTRIL ONCE A DAY FOR ALLERGIES Linzess 145 mcg capsule 145 mcg PO DAILY PRN (Reason: Constipation) Rx Instructions: TAKE ONE CAPSULE BY MOUTH ONCE A DAY Discontinued clopidogrel 75 mg tablet 75 mg PO DAILY No Action bisoprolol fumarate 10 mg tablet 10 mg PO DAILY Qty: 30 5RF Januvia 100 mg tablet See Rx Instructions .ROUTE .COMPLEX Qty: 90 3RF Dose Instruction: TAKE 1 TABLET BY MOUTH ONCE A DAY Rx Instructions: TAKE 1 TABLET BY MOUTH ONCE A DAY Xarelto 15 mg tablet 15 mg PO DAILY 30 Days Qty: 30 6RF Problem Reconciliation Problems Reviewed?: Yes Patient Discharge Instructions Patient Instructions: How to Care for a Surgical Wound, DI for Automatic Cardioverter/Defibrillator Implantation, DI for Surgical Site Infection, DI for Post-Surgical Bleeding Print Language: [place] Providers Primary Care Provider: Mingo Weiss Admit Provider: Renato Wagner Attending Provider: Renato Wagner
[2025-08-09 16:43] LABS: Free T4 (Free Thyroxine) 1.30 ng/dl (0.78-2.19)
[2025-08-09 16:57] LABS: Thyroid Stimulating Hormone 3.47 uIU/mL (0.465-4.68)
[2025-08-09 21:23] LABS: POC Glucose,Bedside 160 gm/dL (70-110)
[2025-08-09 21:23] LABS: POC Glucose,Bedside 104 gm/dL (70-110)
--- NOTE | 2025-08-10 10:23 | SW/DCPLANNER ---
Spoke with patient on the phone. Patient stated that he is doing good. Patient stated that he is aware of his upcoming appointment. Patient stated that he was able to get his new medicine picked up from the pharmacy. Patient stated that he has no concerns or questions at this time. Dania Kyle
== END 2025-08-09 16:41 | disposition home or self-care (01) ==
LOC: 2ND 17:48
PROVIDERS: Internal Medicine; Nurse Practitioner Family; Physician Assistant; Admitting Provider Student in an Organized Health Care Education/Training Program; PCP Internal Medicine; Visit Provider Student in an Organized Health Care Education/Training Program
PROC: 0JH609Z Insertion of Cardiac Resynchronization Defibrillator Pulse Generator into Chest Subcutaneous Tissue and Fascia, Open Approach (ICD-10-PCS; CPT 33249; principal; 2025-08-08 11:05)
DX: I50.23 Acute on chronic systolic (congestive) heart failure (principal); I13.0 Hypertensive heart and chronic kidney disease with heart failure and stage 1 through stage 4 chronic kidney disease, or unspecified chronic kidney disease; E11.22 Type 2 diabetes mellitus with diabetic chronic kidney disease; N18.31 Chronic kidney disease, stage 3a; I25.119 Atherosclerotic heart disease of native coronary artery with unspecified angina pectoris; I25.5 Ischemic cardiomyopathy; E03.9 Hypothyroidism, unspecified; E66.01 Morbid (severe) obesity due to excess calories; I25.2 Old myocardial infarction; H53.9 Unspecified visual disturbance; Z68.36 Body mass index [BMI] 36.0-36.9, adult; Z86.718 Personal history of other venous thrombosis and embolism; Z86.73 Personal history of transient ischemic attack (TIA), and cerebral infarction without residual deficits; Z95.5 Presence of coronary angioplasty implant and graft; F17.210 Nicotine dependence, cigarettes, uncomplicated; Z79.82 Long term (current) use of aspirin; Z79.01 Long term (current) use of anticoagulants; Z79.890 Hormone replacement therapy; Z79.84 Long term (current) use of oral hypoglycemic drugs; Z79.85 Long-term (current) use of injectable non-insulin antidiabetic drugs; Z79.899 Other long term (current) drug therapy; Z88.8 Allergy status to other drugs, medicaments and biological substances; Z82.49 Family history of ischemic heart disease and other diseases of the circulatory system
CPT/HCPCS: 33208; 33225; 36415; 70450; 70496; 70498; 71045; 80048; 82962; 83036; 84439; 84443; 85014; 85018; 85025; 93308; 93970; 97166; C1725; C1769; C1882; C1895; C1898; C1900; G0378; J2003; J2004; J2704; J7030; J7040; J7120; Q9957; Q9967

== ENCOUNTER 2025-08-20 12:04 | Outpatient (CLI) | payer OTHER, SELFPAY ==
[2025-08-20 12:07] VITALS: BMI 35.1
--- OUTSIDE RECORDS SUMMARY | 2025-08-20 12:07 | XMS_ITS | Clinical Summary ---
Author Organization Healthcare Address [address] [place] [address] Care Team Providers Care Glass Mould Cleaner Name Role Phone Chacho Gutierrez MD Primary Care Provider + [phone] Allergies Active Allergy Reactions Criticality Noted Date [...] 10 MG capsule 3 Active HYDROcodone-leonard taminophen ([place]) 5-325 MG tablet Active hydrocortisone 2.5 % [...] Encounters Date Type Department Care Team Description 08/08/2025 Orders Only External Location [address] [place] [id number] Provider, External from Last 3 Months Immunizations Immunization Administration [...] Date Smoking Tobacco: Every Day Cigarettes 0.5 39.8 Started: 1985 Passive Smoke Exposure: Current Smokeless [...] Sign Reading Time Taken Comments Blood Pressure 131/81 08/08/2025 11:32 PM EDT Pulse 71 08/08/2025 11:32 PM EDT Temperature 36.1 C (96.9 F) 03/03/2024 [...] 09/07/2022 09/07/2017, 09/07/2017 [facility]-Depression Screening 12/14/2024 12/14/2023 [id number] Vaccine ( - season) 2025 11/06/2021, 02/12/2021, 01/15/2021 [facility]-Influenza [...] this topic Medical Devices Implanted Type Area Remote Operations Producer Device Identifier Shelf Expiration Date Model / Serial / Lot Unknown Femur K-Wire Dual Trocar 035 X 152mm - [id number] Implanted:Qty: 1 on 01/28/2024 by Juan Francisco MD at [facility] Left: [place] [id number] 12/21/2026 [id number] / / [id number] Procedures Procedure Name Priority Date/Time Associated Diagnosis Comments CT OUTSIDE IMAGES 08/08/2025 10:26 PM EDT from Last 3 Months Results * CT OUTSIDE IMAGES (08/08/2025 10:26 PM EDT) Anatomical Region Laterality Modality Computed Tomogra phy 08/08/2025 10:2 6 PM EDT us External Provider IMG CT PROCEDURES Edited Resul t - Final from Last 3 Months Insurance Care Teams Glass Mould Cleaner Relationship Specialty Start Date End Date Chacho Gutierrez MD [address] [phone] [facility] - General 03/14/21
--- OUTSIDE RECORDS SUMMARY | 2025-08-20 12:07 | XMS_ITS | Encounter Summary ---
Author Organization Healthcare Address [address] [place] [address] Care Team Providers Care Game Master Name Role Phone Chacho Gutierrez MD Primary Care Provider [phone] Encounter Details Date Type Department Care Team (Late st Contact Info) Description 08/08/2025 Orders Only External Location [address] [place] [id number] Provider, External Social History Tobacco Use Types Packs/Day Years [...] as of this encounter Plan of Treatment Not on file documented as of this encounter Procedures Procedure Name Priority Date/Time Associated Diagnosis Comments CT OUTSIDE IMAGES 08/08/2025 10:26 PM EDT documented in this encounter Results * CT OUTSIDE IMAGES (08/08/2025 10:26 PM EDT) Anatomical Region Laterality Modality Computed Tomogra phy 08/08/2025 10:2 6 PM EDT External Provider IMG CT PROCEDURES Edited Resul t - Final documented in this encounter Visit Diagnoses Not on filedocumented in this encounter Additional Health Concerns Assessment Noted Time A Body Mass Index follow-up plan has been documented for the patient 03/03/2024 12:11 PM EDT documented as of this encounter Care Teams Game Master Relationship Specialty Start Date End Date Chacho Gutierrez MD [address] [place] [address] PCP - General 03/14/21 documented as of this encounter
--- OUTSIDE RECORDS SUMMARY | 2025-08-20 12:08 | XMS_ITS | Clinical Summary ---
Author Organization [facility] yste Address [address] [place] [address] Care Team Providers Care Dental Officer Name Role Phone Mingo Weiss Primary Care [...] of 2) 2016 INFLUENZA VACCINE 06/01/2025 Insurance [facility] Maps InDeed [place] Care Teams Dental Officer Relationship Specialty Start Date End Date Mingo Weiss DO [address] [place] [address] [place] [id number] PCP - General Internal Medicine 03/09/24
[2025-08-20 12:30] LABS: Chloride 98 mmol/L (98-107)
[2025-08-20 12:31] LABS: Potassium 4.4 mmoL/L (3.5-5.1); Sodium 132 mmol/L (136-145)
[2025-08-20 12:33] LABS: Blood Urea Nitrogen 41 mg/dl (9-20); Creatinine Clearance Estimated 67 mL/min (50-200); Creatinine,Serum 1.80 mg/dl (0.66-1.25); Estimated Glomerular Filt Rate 39 ml/min (>60); GFR (African American) 47 ML/MIN (>60)
[2025-08-20 12:34] LABS: Anion Gap 12.4 mEq/L (5-15); Calcium 8.7 mg/dl (8.4-10.2); Carbon Dioxide 26 mmol/L (22.0-30.0); Glucose 155 mg/dl (74-100)
[2025-08-20 12:38] VITALS: BP 119/84; PULSE 76; RESP 14; TEMP 36.6; O2SAT 97
[2025-08-20] MEDS: SODIUM CHLORIDE 0.9% 10ML FLUSH SYRINGE 10 ML IV (12:38)
[2025-08-20] MEDS: MAGNESIUM SULFATE IN WATER 2 GM/50 ML PIGGYBACK IV (12:38)
[2025-08-20 12:39] LABS: Magnesium 1.0 mg/dl (1.6-2.3)
[2025-08-20 13:38] VITALS: BP 123/74; PULSE 69; RESP 14; TEMP 36.6; O2SAT 97
== END 2025-08-20 23:59 | disposition home or self-care (01) ==
LOC: INF 12:05
PROVIDERS: PCP Internal Medicine; Visit Provider Internal Medicine
DX: E83.42 Hypomagnesemia (principal)
CPT/HCPCS: 36415; 80048; 83735; 96365; J3475

== ENCOUNTER 2025-08-28 12:13 | Outpatient (CLI) | payer OTHER, SELFPAY ==
--- OUTSIDE RECORDS SUMMARY | 2025-08-28 12:18 | XMS_ITS | Data Portability ---
Author Organization [facility] [place], [facility] ADMIN Address [address] [place] [address] Assessment No assessment recorded. Plan of Treatment [...] Details Recorded Time Gastroesophage al reflux disease 919242249 Active 2021 [place], [place] - [facility] [place] 2 09:04:24 Coronary arterioscleros is 44840422 Active 2021 [place] - [facility] - [facility] [place] 2 09:04:32 Diabetes mellitus 50902819 Active 2021 [place], [place] - [facility] - [facility] [place] 2 09:04:40 Hypertensive disorder 20640390 Active 2021 Law shetty, [place] - [facility] - [facility] [place] 2 09:04:47 Hypercholester olemia 13326384 Active 2021 Law shetty, [place] - [facility] [place] 2 09:04:56 Chronic obstructive pulmonary disease 72574610 Active 2021 [place], [place] - [facility] - [facility] [place] 2 09:05:05 Hypomagnesemia 574247444 Active 2021 [facility] Ant[facility]z [facility] & [place] 2 09:05:18 Anxiety 37935472 Active 2021 [facility] Ant[place] & [place] 2 09:05:32 Problem Notes None recorded. Procedures Surgical History Date Name Laterality Status Provider Name and Address Organization Details Recorded Time tonsillectomy completed Law OTTO [facility] & [place] 10/28/2022 09:06:30 colonoscopy completed Law OTTO [facility] & [place] 10/28/2022 09:06:42 Imaging Results None recorded. Procedure Notes None recorded. Medical Equipment None Reported. Allergies Allergen ID Allergen Name Allergen Category Reaction Reaction Severity Criticality Documentation Date Start Date Code Code System Note Provider Name and Address Organization Details Recorded Time 63820 morphine medicatio n Not available Not available Not available 10/28/2022 7052 RxNorm [facility] Ant[facility] & [place] 2 09:02:43 30630 codeine medicatio n Not available Not available Not available 10/28/2022 2670 RxNorm [facility] Ant[facility] & [place] 2 09:02:51 Medications Name Sig Start Date [...] index (BMI) Body weight Body temperature Systolic And Diastolic Provider Name and Address Organization Details Last Updated DateTime 10/30/2022 187.96 cm 38.5 kg/m2 064532. 71 g 96.5 [degF] 135/83 mm[Hg] Phylicia VERDUZCO [facility] & [place] 10:38:04 Social History Question Answer Notes LastModified by Organizat ion Details LastModified Time Tobacco Smoking Status Current Every Day Smoker Law shetty, [facility] & [place] 10/28/2022 09:06:16 What Is Your Current Pack Years? 10packyears [email or web address] Information not available 10/30/2022 How Much Tobacco Do You Smoke? 1 PPW [email or web address] Information not available 10/30/2022 Sex: Unknown Functional Status Question Answer Note LastModified by Organization D etails LastModified Time What is your level of alcohol consumption? None Information not available 10/28/2022 Mental Status None recorded. Family History Relationship Description Onset Age of this Age Resolved Age Notes LastModified by Organization Details LastModified Time Father Coronary arterioscler osis [email or web address] Not available 2021 09:05:54 Father Diabetes mellitus [email or web address] Not available 10/30 10:38:41 Mother Coronary arterioscler osis [email or web address] Not available 2021 09:05:54 Mother Diabetes mellitus [email or web address] Not available 10/30 10:38:41 Medical History No medical history recorded. Past Encounters Encounter ID Performer Location Encounter Start Date Encounter Closed Date Diagnosis/Indication Diagnosis SNOMED-CT Code Diagnosis ICD10 Code Diagnosis IMO Codes Diagnosis Note [id number] Flavio Miles Jr, MD [facility] Urology [address] [place] [address] 10/30/2022 10:00:46 10/30/2022 11:13:38 Edema of scrotum 51349282 N50.89 patient with generalize d penoscrota l [...] Member ID Guarantor Name 05/20/2024 1 [employer] [facility] (MEDICAID HMO) Vishal Guerra [id number] Vishal Guerra Notes Date Note Type Note Provider Name and Address Organization Details Recorded Time 10/30/2022 text/html Patient is a 57-year-old white male referred from Dr. baker and sent he can a for penoscrotal edema. Patient states he was hospitalized at [facility] for 4 days around [place] time. Patient has a history of congestive [...] creatinine was 2.6. Flavio Miles Jr, MD [address] [place] [address], [address], [place], [address], [facility] - [place] - [place] & [place] 11/03/2022 14:58:36
--- OUTSIDE RECORDS SUMMARY | 2025-08-28 12:18 | XMS_ITS | Encounter Summary ---
Author Organization Healthcare Address [address] [place] [address] Care Team Providers Care Optician Apprentice Dispensing Name Role Phone Chacho Gutierrez MD Primary Care Provider [phone] Encounter Details Date Type Department Care Team (Late st Contact Info) Description 08/08/2025 Orders Only External Location [address] [place] [address] Provider, External Social History Tobacco Use Types [...] documented as of this encounter Care Teams Optician Apprentice Dispensing Relationship Specialty Start Date End Date Chacho Gutierrez MD [address] [place] [address] PCP - General 03/14/21 documented as of this encounter
--- OUTSIDE RECORDS SUMMARY | 2025-08-28 12:18 | XMS_ITS | Clinical Summary ---
Author Organization [facility] yste Address [address] [place] [address] Care Team Providers Care Animal Husbandry Teacher Name Role Phone Mingo Weiss Primary Care [...] 2016 INFLUENZA VACCINE 06/01/2025 Insurance [facility] [employer] [place] Care Teams Animal Husbandry Teacher Relationship Specialty Start Date End Date Mingo Weiss DO [address] [place] [address] [place] [address] PCP - General Internal Medicine 03/09/24
--- OUTSIDE RECORDS SUMMARY | 2025-08-28 12:18 | XMS_ITS | Clinical Summary ---
Author Organization Healthcare Address [address] [place] [address] Care Team Providers Care Nut Sheller Name Role Phone Chacho Gutierrez MD Primary Care Provider + [phone] Allergies Active Allergy Reactions Criticality Noted Date [...] 10 MG capsule 3 Active HYDROcodone-leonard taminophen ([place]) 5-325 MG tablet Active hydrocortisone 2.5 % [...] Team Description 08/08/2025 Orders Only External Location [address] [place] [phone] Provider, External from Last 3 Months Immunizations [...] 09/07/2022 09/07/2017, 09/07/2017 [facility]-Depression Screening 12/14/2024 12/14/2023 [id number] Vaccine ( - season) 2025 11/06/2021, 02/12/2021, [...] this topic Medical Devices Implanted Type Area Care Aide Device Identifier Shelf Expiration Date Model / Serial / Lot Unknown Femur K-Wire Dual Trocar 035 X 152mm - [id number] Implanted:Qty: 1 on 01/28/2024 by Juan Francisco MD at [facility] Left: [place] [id number] 1 12/21/2026 1600-635 / / [id number] Procedures Procedure Name Priority Date/Time Associated Diagnosis Comments CT OUTSIDE IMAGES 08/08/2025 10:26 PM EDT from Last 3 Months Results * CT OUTSIDE IMAGES (08/08/2025 10:26 PM EDT) Anatomical Region Laterality Modality Computed Tomogra phy 08/08/2025 10:2 6 PM EDT us External Provider IMG CT PROCEDURES Edited Resul t - Final from Last 3 Months Insurance Care Teams Nut Sheller Relationship Specialty Start Date End Date Chacho Gutierrez MD [address] [place] [phone] [facility] - General 03/14/21
[2025-08-28 12:26] VITALS: BMI 35.1
[2025-08-28 12:30] VITALS: BP 133/77; PULSE 71; RESP 14; TEMP 36.5; O2SAT 97
[2025-08-28] MEDS: MAGNESIUM SULFATE IN WATER 2 GM/50 ML PIGGYBACK IV ×2 (12:31→13:50)
[2025-08-28] MEDS: SODIUM CHLORIDE 0.9% 10ML FLUSH SYRINGE 10 ML IV (12:31)
[2025-08-28 12:44] LABS: Anion Gap 15.8 mEq/L (5-15); Blood Urea Nitrogen 32 mg/dl (9-20); Calcium 9.0 mg/dl (8.4-10.2); Carbon Dioxide 26 mmol/L (22.0-30.0); Chloride 97 mmol/L (98-107); Creatinine Clearance Estimated 67 mL/min (50-200); Creatinine,Serum 1.80 mg/dl (0.66-1.25); Estimated Glomerular Filt Rate 39 ml/min (>60); GFR (African American) 47 ML/MIN (>60); Glucose 170 mg/dl (74-100); Potassium 3.8 mmoL/L (3.5-5.1); Sodium 135 mmol/L (136-145)
[2025-08-28 12:49] LABS: Magnesium 0.9 mg/dl (1.6-2.3)
[2025-08-28 13:30] VITALS: BP 99/62; PULSE 72; RESP 16; O2SAT 98
[2025-08-28 14:50] VITALS: BP 114/69; PULSE 74; RESP 16; O2SAT 98
== END 2025-08-28 23:59 | disposition home or self-care (01) ==
LOC: INF 12:14
PROVIDERS: PCP Internal Medicine; Visit Provider Internal Medicine
DX: E83.42 Hypomagnesemia (principal)
CPT/HCPCS: 80048; 83735; 96365; 96366; J3475

== ENCOUNTER 2025-09-04 12:30 | Outpatient (CLI) | payer OTHER, SELFPAY ==
[2025-09-04 12:32] VITALS: BMI 35.1
--- OUTSIDE RECORDS SUMMARY | 2025-09-04 12:33 | XMS_ITS | Clinical Summary ---
Author Organization Healthcare Address [address] [place] [address] Care Team Providers Care Land Management Forester Name Role Phone Chacho Gutierrez MD Primary Care Provider + [phone] Allergies Active Allergy Reactions Criticality Noted Date [...] 10 MG capsule 3 Active HYDROcodone-leonard taminophen ([place]) 5-325 MG tablet Active hydrocortisone 2.5 % [...] Team Description 08/08/2025 Orders Only External Location [address] [place] [phone] Provider, External from Last 3 Months Immunizations [...] 09/07/2022 09/07/2017, 09/07/2017 [facility]-Depression Screening 12/14/2024 12/14/2023 [id number]-42 Vaccine ( - season) 2025 11/06/2021, 02/12/2021, [...] this topic Medical Devices Implanted Type Area Employee Welfare Manager Device Identifier Shelf Expiration Date Model / Serial / Lot Unknown Femur K-Wire Dual Trocar 035 X 152mm - [id number] Implanted:Qty: 1 on 01/28/2024 by Juan Francisco MD at [facility] Left: [place] [id number] 12/21/2026 1600-635 / / [id number] Procedures Procedure Name Priority Date/Time Associated Diagnosis Comments CT OUTSIDE IMAGES 08/08/2025 10:26 PM EDT from Last 3 Months Results * CT OUTSIDE IMAGES (08/08/2025 10:26 PM EDT) Anatomical Region Laterality Modality Computed Tomogra phy 08/08/2025 10:2 6 PM EDT us External Provider IMG CT PROCEDURES Edited Resul t - Final from Last 3 Months Insurance Care Teams Land Management Forester Relationship Specialty Start Date End Date Chacho Gutierrez MD [address] [place] [phone] [facility] - General 03/14/21
--- OUTSIDE RECORDS SUMMARY | 2025-09-04 12:33 | XMS_ITS | Data Portability ---
Author Organization [facility] [place], LPNT ADMIN Address [address] [place] [phone] Assessment No assessment recorded. Plan of Treatment [...] Details Recorded Time Gastroesophage al reflux disease 242238262 Active 2021 [place] - [facility] [place] 2 09:04:24 Coronary arterioscleros is 57760006 Active 2021 [place] - [facility] & [place] 2 09:04:32 Diabetes mellitus 70659384 Active 2021 Law [place], [place] - [facility] [place] 2 09:04:40 Hypertensive disorder 46759757 Active 2021 Law shetty, [facility] [place] 2 09:04:47 Hypercholester olemia 97854400 Active 2021 Law shetty, [place] - [facility] [place] 2 09:04:56 Chronic obstructive pulmonary disease 71955968 Active 2021 Law [place], [place] - [facility] & [place] 2 09:05:05 Hypomagnesemia 639647961 Active 2021 [facility] Antunez [facility] & [place] 2 09:05:18 Anxiety 71788254 Active 2021 [facility] Antune[place] & [place] 2 09:05:32 Problem Notes None recorded. Procedures Surgical History Date Name Laterality Status Provider Name and Address Organization Details Recorded Time tonsillectomy completed Law OTTO [facility] & [place] 10/28/2022 09:06:30 colonoscopy completed Law OTTO [facility] & [place] 10/28/2022 09:06:42 Imaging Results None recorded. Procedure Notes None recorded. Medical Equipment None Reported. Allergies Allergen ID Allergen Name Allergen Category Reaction Reaction Severity Criticality Documentation Date Start Date Code Code System Note Provider Name and Address Organization Details Recorded Time 41480 morphine medicatio n Not available Not available Not available 10/28/2022 7052 RxNorm [facility] Antunez [facility] & [place] 2 09:02:43 45611 codeine medicatio n Not available Not available Not available 10/28/2022 2670 RxNorm [facility] Antunez [facility] & [place] 2 09:02:51 Medications Name Sig [...] Updated DateTime 10/30/2022 187.96 cm 38.5 kg/m2 836926. 71 g 96.5 [degF] 135/83 mm[Hg] Phylicia VERDUZCO [facility] & [place] 10:38:04 Social History Question Answer Notes LastModified by Organizat ion Details LastModified Time Tobacco Smoking Status Current Every Day Smoker Law shetty, [facility] & [place] 10/28/2022 09:06:16 What Is Your Current Pack Years? 10packyears [email or web address] Information not available 10/30/2022 How Much Tobacco Do You Smoke? 1 PPW Information not available 10/30/2022 Sex: Unknown Functional Status Question Answer Note LastModified by Organization D etails LastModified Time What is your level of alcohol consumption? None [email or web address] Information not available 10/28/2022 Mental Status None recorded. Family History Relationship Description Onset Age of this Age Resolved Age Notes LastModified by Organization Details LastModified Time Father Coronary arterioscler osis [email or web address] Not available 2021 09:05:54 Father Diabetes mellitus [email or web address] Not available 10/30 10:38:41 Mother Coronary arterioscler osis [email or web address] Not available 2021 09:05:54 Mother Diabetes mellitus [email or web address] Not available 10/30 10:38:41 Medical History No medical history recorded. Past Encounters Encounter ID Performer Location Encounter Start Date Encounter Closed Date Diagnosis/Indication Diagnosis SNOMED-CT Code Diagnosis ICD10 Code Diagnosis IMO Codes Diagnosis Note [id number] Flavio Miles Jr, MD [facility] Urology [address] [place] [address] 10/30/2022 10:00:46 10/30/2022 11:13:38 Edema of scrotum [id number] N50.89 patient with generalize d penoscrota l [...] Member ID Guarantor Name 05/20/2024 [address] [employer] [facility] (MEDICAID HMO) Vishal Guerra [id number] Vishal Guerra Notes Date Note Type Note Provider Name and Address Organization Details Recorded Time 10/30/2022 text/html Patient is a 57-year-old white male referred from Dr. baker and sent he can a for penoscrotal edema. Patient states he was hospitalized at [facility] for 4 days around [place] time. Patient has a history of congestive [...] creatinine was 2.6. Flavio Miles Jr, MD [address] [place] [address], [address], [place], [address], [facility] [place] 11/03/2022 14:58:36
--- OUTSIDE RECORDS SUMMARY | 2025-09-04 12:33 | XMS_ITS | Clinical Summary ---
[facility] Address [address] [place] [id number] Care Team Providers Care Dispensing Lead Name Role Phone Mingo Weiss Primary Care [...] of 2) 2016 INFLUENZA VACCINE 06/01/2025 Insurance [facility] [employer] [place] Care Teams Dispensing Lead Relationship Specialty Start Date End Date Mingo Weiss DO [address] [place] [address] PCP - General Internal Medicine 03/09/24
--- OUTSIDE RECORDS SUMMARY | 2025-09-04 12:33 | XMS_ITS | Encounter Summary ---
Author Organization Healthcare Address [address] [place] [address] Care Team Providers Care Finish Sander Name Role Phone Chacho Gutierrez MD Primary Care Provider [phone] Encounter Details Date Type Department Care Team (Late st Contact Info) Description 08/08/2025 Orders Only External Location [address] [place] [address] Provider, External Social History Tobacco Use Types [...] documented as of this encounter Care Teams Finish Sander Relationship Specialty Start Date End Date Chacho Gutierrez MD [address] [place] [address] PCP - General 03/14/21 documented as of this encounter
[2025-09-04 12:45] VITALS: BP 116/72; PULSE 62; RESP 18; TEMP 36.7; O2SAT 98
[2025-09-04] MEDS: MAGNESIUM SULFATE IN WATER 2 GM/50 ML PIGGYBACK IV (12:45)
[2025-09-04] MEDS: SODIUM CHLORIDE 0.9% 10ML FLUSH SYRINGE 10 ML IV (13:03)
[2025-09-04 13:05] LABS: Chloride 99 mmol/L (98-107); Potassium 4.5 mmoL/L (3.5-5.1); Sodium 135 mmol/L (136-145)
[2025-09-04 13:08] LABS: Anion Gap 12.5 mEq/L (5-15); Blood Urea Nitrogen 40 mg/dl (9-20); Calcium 9.0 mg/dl (8.4-10.2); Carbon Dioxide 28 mmol/L (22.0-30.0); Creatinine Clearance Estimated 58 mL/min (50-200); Creatinine,Serum 2.10 mg/dl (0.66-1.25); Estimated Glomerular Filt Rate 32 ml/min (>60); GFR (African American) 39 ML/MIN (>60); Glucose 166 mg/dl (74-100); Magnesium 1.3 mg/dl (1.6-2.3)
[2025-09-04 13:51] VITALS: BP 117/67; PULSE 64; RESP 18; O2SAT 98
== END 2025-09-04 23:59 | disposition home or self-care (01) ==
LOC: INF 12:31
PROVIDERS: PCP Internal Medicine; Visit Provider Internal Medicine
DX: E83.42 Hypomagnesemia (principal)
CPT/HCPCS: 80048; 83735; 96365; J3475

== ENCOUNTER 2025-09-11 12:33 | Outpatient (CLI) | payer OTHER, SELFPAY ==
--- OUTSIDE RECORDS SUMMARY | 2025-09-11 12:37 | XMS_ITS | Clinical Summary ---
Author Organization Healthcare Address [address] [place] [address] Care Team Providers Care Staff Registered Nurse Name Role Phone Chacho Gutierrez MD Primary Care Provider + [phone] Allergies Active Allergy Reactions Criticality Noted Date [...] 10 MG capsule 3 Active HYDROcodone-leonard taminophen ([place]) 5-325 MG tablet Active hydrocortisone 2.5 % [...] Team Description 08/08/2025 Orders Only External Location [address] [place] [phone] Provider, External from Last 3 Months Immunizations [...] Date Smoking Tobacco: Every Day Cigarettes 0.5 39.9 Started: 1984 Passive Smoke Exposure: Current Smokeless [...] 09/07/2022 09/07/2017, 09/07/2017 [facility]-Depression Screening 12/14/2024 12/14/2023 [id number] Vaccine ( - season) 2025 11/06/2021, 02/12/2021, [...] this topic Medical Devices Implanted Type Area Acoustical Tile Patternmaker Device Identifier Shelf Expiration Date Model / Serial / Lot Unknown Femur K-Wire Dual Trocar 035 X 152mm - [id number] Implanted:Qty: 1 on 01/28/2024 by Juan Francisco MD at [facility] Left: [place] [employer]-[id number] 12/21/2026 1600-635 / / [id number] Procedures Procedure Name Priority Date/Time Associated Diagnosis Comments CT OUTSIDE IMAGES 08/08/2025 10:26 PM EDT from Last 3 Months Results * CT OUTSIDE IMAGES (08/08/2025 10:26 PM EDT) Anatomical Region Laterality Modality Computed Tomogra phy 08/08/2025 10:2 6 PM EDT us External Provider IMG CT PROCEDURES Edited Resul t - Final from Last 3 Months Insurance Care Teams Staff Registered Nurse Relationship Specialty Start Date End Date Chacho Gutierrez MD [address] [place] [phone] [facility] - General 03/14/21
--- OUTSIDE RECORDS SUMMARY | 2025-09-11 12:37 | XMS_ITS | Encounter Summary ---
Author Organization Healthcare Address [address] [place] [address] Care Team Providers Care Operations Executive Name Role Phone Chacho Gutierrez MD Primary Care Provider [phone] Encounter Details Date Type Department Care Team (Late st Contact Info) Description 08/08/2025 Orders Only External Location [address] [place] [address] Provider, External Social History Tobacco Use Types [...] documented as of this encounter Care Teams Operations Executive Relationship Specialty Start Date End Date Chacho Gutierrez MD [address] [place] [address] PCP - General 03/14/21 documented as of this encounter
--- OUTSIDE RECORDS SUMMARY | 2025-09-11 12:37 | XMS_ITS | Clinical Summary ---
Author Organization [facility] yste Address [address] [place] [address] Care Team Providers Care Evaporator Operator Name Role Phone Mingo Weiss Primary [...] 2016 INFLUENZA VACCINE 06/01/2025 Insurance [facility] [place] Care Teams Evaporator Operator Relationship Specialty Start Date End Date Mingo Weiss DO [address] [place] [address] PCP - General Internal Medicine 03/09/24
[2025-09-11] MEDS: MAGNESIUM SULFATE IN WATER 2 GM/50 ML PIGGYBACK IV (12:44)
[2025-09-11 12:45] VITALS: BP 114/63; PULSE 73; RESP 18; O2SAT 97
[2025-09-11 13:15] LABS: Anion Gap 12.5 mEq/L (5-15); Blood Urea Nitrogen 44 mg/dl (9-20); Calcium 9.2 mg/dl (8.4-10.2); Carbon Dioxide 24 mmol/L (22.0-30.0); Chloride 98 mmol/L (98-107); Creatinine,Serum 2.60 mg/dl (0.66-1.25); Estimated Glomerular Filt Rate 25 ml/min (>60); GFR (African American) 31 ML/MIN (>60); Glucose 156 mg/dl (74-100); Potassium 4.5 mmoL/L (3.5-5.1); Sodium 130 mmol/L (136-145)
[2025-09-11 13:17] LABS: Magnesium 1.0 mg/dl (1.6-2.3)
[2025-09-11 13:45] VITALS: BP 121/63; PULSE 70
[2025-09-11] MEDS: SODIUM CHLORIDE 0.9% 10ML FLUSH SYRINGE 10 ML IV (13:45)
[2025-09-11 17:18] LABS: Iron 68 ug/dL (49-181)
[2025-09-11 17:27] LABS: Total Iron Binding Capacity 460 ug/dL (261-462)
[2025-09-11 17:54] LABS: Ferritin 14.8 ng/ml (17.9-464)
== END 2025-09-11 13:50 | disposition home or self-care (01) ==
LOC: INF 12:35
PROVIDERS: PCP Internal Medicine; Visit Provider Internal Medicine
DX: D64.9 Anemia, unspecified (principal); G25.81 Restless legs syndrome; E83.42 Hypomagnesemia
CPT/HCPCS: 80048; 82728; 83540; 83550; 83735; 96365; J3475

== ENCOUNTER 2025-09-17 11:44 | Outpatient (CLI) | payer OTHER, SELFPAY ==
[2025-09-17 12:00] VITALS: BP 141/92; PULSE 70; RESP 18; TEMP 37; O2SAT 99
[2025-09-17] MEDS: SODIUM CHLORIDE 0.9% 10ML FLUSH SYRINGE 10 ML IV (12:00)
[2025-09-17] MEDS: MAGNESIUM SULFATE IN WATER 2 GM/50 ML PIGGYBACK IV (12:00)
[2025-09-17 12:30] LABS: Anion Gap 11.2 mEq/L (5-15); Blood Urea Nitrogen 33 mg/dl (9-20); Calcium 9.7 mg/dl (8.4-10.2); Carbon Dioxide 23 mmol/L (22.0-30.0); Chloride 101 mmol/L (98-107); Creatinine,Serum 1.90 mg/dl (0.66-1.25); Estimated Glomerular Filt Rate 36 ml/min (>60); GFR (African American) 44 ML/MIN (>60); Glucose 135 mg/dl (74-100); Magnesium 1.2 mg/dl (1.6-2.3); Potassium 5.2 mmoL/L (3.5-5.1); Sodium 130 mmol/L (136-145)
[2025-09-17 13:00] VITALS: BP 148/91; PULSE 77; O2SAT 100
== END 2025-09-17 23:59 | disposition home or self-care (01) ==
LOC: INF 11:45
PROVIDERS: PCP Internal Medicine; Visit Provider Internal Medicine
DX: E83.42 Hypomagnesemia (principal)
CPT/HCPCS: 80048; 83735; 96365; J3475

== ENCOUNTER 2025-09-24 12:28 | Outpatient (CLI) | payer OTHER, SELFPAY ==
--- OUTSIDE RECORDS SUMMARY | 2025-09-24 12:32 | XMS_ITS | Clinical Summary ---
Author Organization [facility] yste Address [address] [place] [address] Care Team Providers Care Land Inspector Name Role Phone Mingo Weiss Primary Care [...] of 2) 2016 INFLUENZA VACCINE 06/01/2025 Insurance [facility] [employer] [place] Care Teams Land Inspector Relationship Specialty Start Date End Date Mingo Weiss DO [address] [place] [address] PCP - General Internal Medicine 03/09/24
--- OUTSIDE RECORDS SUMMARY | 2025-09-24 12:32 | XMS_ITS | Encounter Summary ---
Author Organization Healthcare Address [address] [place] [address] Care Team Providers Care Vp Integration Name Role Phone Chacho Gutierrez MD Primary Care Provider [phone] Encounter Details Date Type Department Care Team (Late st Contact Info) Description 08/08/2025 Orders Only External Location [address] [place] [address] Provider, External Social History Tobacco Use Types [...] documented as of this encounter Care Teams Vp Integration Relationship Specialty Start Date End Date Chacho Gutierrez MD [address] [place] [address] PCP - General 03/14/21 documented as of this encounter
--- OUTSIDE RECORDS SUMMARY | 2025-09-24 12:32 | XMS_ITS | Clinical Summary ---
Author Organization Healthcare Address [address] [place] [address] Care Team Providers Care Flight Line Mechanic Name Role Phone Chacho Gutierrez MD Primary Care Provider + [phone] Allergies Active Allergy Reactions Criticality Noted Date [...] 10 MG capsule 3 Active HYDROcodone-leonard taminophen ([place]) 5-325 MG tablet Active hydrocortisone 2.5 % [...] Team Description 08/08/2025 Orders Only External Location [address] [place] [phone] Provider, External from Last 3 Months Immunizations [...] 09/07/2022 09/07/2017, 09/07/2017 [facility]-Depression Screening 12/14/2024 12/14/2023 [id number] Vaccine ( - season) 2025 11/06/2021, 02/12/2021, [...] topic Medical Devices Implanted Type Area Remote Ruby On Rails Developer Device Identifier Shelf Expiration Date Model / Serial / Lot Unknown Femur K-Wire Dual Trocar 035 X 152mm - [id number] Implanted:Qty: 1 on 01/28/2024 by Juan Francisco MD at [facility] Left: [place] [id number] 12/21/2026 1600-635 / / [id number] Procedures Procedure Name Priority Date/Time Associated Diagnosis Comments CT OUTSIDE IMAGES 08/08/2025 10:26 PM EDT from Last 3 Months Results * CT OUTSIDE IMAGES (08/08/2025 10:26 PM EDT) Anatomical Region Laterality Modality Computed Tomogra phy 08/08/2025 10:2 6 PM EDT us External Provider IMG CT PROCEDURES Edited Resul t - Final from Last 3 Months Insurance Care Teams Flight Line Mechanic Relationship Specialty Start Date End Date Chacho Gutierrez MD [address] [place] [phone] [facility] - General 03/14/21
[2025-09-24 13:00] VITALS: BP 100/67; PULSE 71; RESP 20; O2SAT 98
[2025-09-24] MEDS: MAGNESIUM SULFATE IN WATER 2 GM/50 ML PIGGYBACK IV (13:00)
[2025-09-24] MEDS: SODIUM CHLORIDE 0.9% 10ML FLUSH SYRINGE 10 ML IV (13:15)
[2025-09-24 13:20] LABS: Chloride 96 mmol/L (98-107); Potassium 4.9 mmoL/L (3.5-5.1); Sodium 130 mmol/L (136-145)
[2025-09-24 13:23] LABS: Anion Gap 18.9 mEq/L (5-15); Blood Urea Nitrogen 53 mg/dl (9-20); Calcium 8.9 mg/dl (8.4-10.2); Carbon Dioxide 20 mmol/L (22.0-30.0); Creatinine,Serum 3.00 mg/dl (0.66-1.25); Estimated Glomerular Filt Rate 22 ml/min (>60); GFR (African American) 26 ML/MIN (>60); Glucose 156 mg/dl (74-100); Magnesium 1.1 mg/dl (1.6-2.3)
[2025-09-24] MEDS: IRON SUCROSE COMPLEX 200 MG in 0.9 % SODIUM CHLORIDE 100 ML 220 MG IV (13:50)
[2025-09-24 14:00] VITALS: BP 98/59; PULSE 73
[2025-09-24 14:02] VITALS: BP 102/61; PULSE 70
[2025-09-24 14:35] VITALS: BP 100/64; PULSE 68
== END 2025-09-24 14:35 | disposition home or self-care (01) ==
PROVIDERS: PCP Internal Medicine; Visit Provider Internal Medicine
DX: D50.9 Iron deficiency anemia, unspecified (principal)
CPT/HCPCS: 80048; 83735; 96365; 96366; 96367; J1756; J3475

== ENCOUNTER 2025-10-01 12:51 | Outpatient (CLI) | payer OTHER, SELFPAY ==
[2025-10-01 12:52] VITALS: BMI 35.1
--- OUTSIDE RECORDS SUMMARY | 2025-10-01 12:55 | XMS_ITS | Clinical Summary ---
[facility] Address [address] [place] [address] Care Team Providers Care Agricultural Equipment Sales Manager Name Role Phone Mingo Weiss Primary Care [...] of 2) 2016 INFLUENZA VACCINE 06/01/2025 Insurance ON LICENSE OF [facility] [employer] [place] Care Teams Agricultural Equipment Sales Manager Relationship Specialty Start Date End Date Mingo Weiss DO [address] [place] [address] PCP - General Internal Medicine 03/09/24
--- OUTSIDE RECORDS SUMMARY | 2025-10-01 12:55 | XMS_ITS | Clinical Summary ---
Author Organization Healthcare Address [address] [place] [address] Care Team Providers Care Fisher Troll Line Name Role Phone Chacho Gutierrez MD Primary Care Provider + [phone] Allergies Active Allergy Reactions Criticality Noted Date [...] 10 MG capsule 3 Active HYDROcodone-leonard taminophen ([place]) 5-325 MG tablet Active hydrocortisone 2.5 % [...] Team Description 08/08/2025 Orders Only External Location [address] [place] [phone] Provider, External from Last 3 Months Immunizations [...] 2011 Sigmoidoscopy 2011 [facility]-Colorectal Cancer Screening 2011 Lung Cancer Screening Shared Decision Making 2016 [facility]-Lung Cancer Screening 2016 [facility]-Zoster Vaccines (2 of 2) 11/01/2020 09/06/2020 [facility]-Pneumococcal Vaccine: 50+ Years (3 of 3 - PCV20 or PCV21) 09/07/2022 09/07/2017, 09/07/2017 [facility]-Depression Screening 12/14/2024 12/14/2023 NUL-KZLPE-13 Vaccine ( season) 2025 11/06/2021, 02/12/2021, 01/15/2021 [...] this topic Medical Devices Implanted Type Area Assistant Commissioner Device Identifier Shelf Expiration Date Model / Serial / Lot Unknown Femur K-Wire Dual Trocar 035 X 152mm - [id number] Implanted:Qty: 1 on 01/28/2024 by Juan Francisco MD at [facility] Left: Little [employer]inger [id number] 12/21/2026 1600-635 / / [id number] Procedures Procedure Name Priority Date/Time Associated Diagnosis Comments CT OUTSIDE IMAGES 08/08/2025 10:26 PM EDT from Last 3 Months Results * CT OUTSIDE IMAGES (08/08/2025 10:26 PM EDT) Anatomical Region Laterality Modality Computed Tomogra phy 08/08/2025 10:2 6 PM EDT us External Provider IMG CT PROCEDURES Edited Resul t - Final from Last 3 Months Insurance [facility]ETNA [facility] MEDICAID Care Teams Fisher Troll Line Relationship Specialty Start Date End Date Chacho Gutierrez MD [address] [place] [address] PCP - General 03/14/21
--- OUTSIDE RECORDS SUMMARY | 2025-10-01 12:55 | XMS_ITS | Encounter Summary ---
Author Organization Healthcare Address [address] [place] [address] Care Team Providers Care Cyber Incident Handler Name Role Phone Chacho Gutierrez MD Primary Care Provider [phone] Encounter Details Date Type Department Care Team (Late st Contact Info) Description 08/08/2025 Orders Only External Location [address] [place] [address] Provider, External Social History Tobacco Use Types [...] documented as of this encounter Care Teams Cyber Incident Handler Relationship Specialty Start Date End Date Chacho Gutierrez MD [address] [place] [address] PCP - General 03/14/21 documented as of this encounter
[2025-10-01 13:12] VITALS: BP 126/84; PULSE 78; RESP 18; O2SAT 100
[2025-10-01 13:12] LABS: Chloride 98 mmol/L (98-107); Potassium 4.7 mmoL/L (3.5-5.1); Sodium 134 mmol/L (136-145)
[2025-10-01] MEDS: MAGNESIUM SULFATE IN WATER 2 GM/50 ML PIGGYBACK IV (13:12)
[2025-10-01 13:15] LABS: Anion Gap 18.7 mEq/L (5-15); Blood Urea Nitrogen 60 mg/dl (9-20); Calcium 9.5 mg/dl (8.4-10.2); Carbon Dioxide 22 mmol/L (22.0-30.0); Creatinine Clearance Estimated 47 mL/min (50-200); Creatinine,Serum 2.60 mg/dl (0.66-1.25); Estimated Glomerular Filt Rate 25 ml/min (>60); GFR (African American) 31 ML/MIN (>60); Glucose 193 mg/dl (74-100); Magnesium 1.2 mg/dl (1.6-2.3)
[2025-10-01] MEDS: IRON SUCROSE COMPLEX 200 MG in 0.9 % SODIUM CHLORIDE 100 ML 220 MG IV (14:23)
[2025-10-01 15:00] VITALS: BP 127/62; PULSE 69; RESP 18; O2SAT 100
== END 2025-10-01 23:59 | disposition home or self-care (01) ==
PROVIDERS: PCP Internal Medicine; Visit Provider Internal Medicine
DX: D50.9 Iron deficiency anemia, unspecified (principal)
CPT/HCPCS: 80048; 83735; 96365; 96367; J1756; J3475

== ENCOUNTER 2025-10-08 12:17 | Outpatient (CLI) | payer OTHER, SELFPAY ==
[2025-10-08 12:35] VITALS: BP 115/89; PULSE 73; RESP 14; TEMP 36.7; O2SAT 97
[2025-10-08] MEDS: SODIUM CHLORIDE 0.9% 10ML FLUSH SYRINGE 10 ML IV (12:35)
[2025-10-08] MEDS: MAGNESIUM SULFATE IN WATER 2 GM/50 ML PIGGYBACK IV (12:35)
[2025-10-08 13:07] VITALS: BMI 35.1
[2025-10-08 13:20] LABS: Anion Gap 16.3 mEq/L (5-15); Blood Urea Nitrogen 46 mg/dl (9-20); Calcium 9.7 mg/dl (8.4-10.2); Carbon Dioxide 23 mmol/L (22.0-30.0); Chloride 99 mmol/L (98-107); Creatinine Clearance Estimated 51 mL/min (50-200); Creatinine,Serum 2.40 mg/dl (0.66-1.25); Estimated Glomerular Filt Rate 28 ml/min (>60); GFR (African American) 34 ML/MIN (>60); Glucose 173 mg/dl (74-100); Magnesium 1.2 mg/dl (1.6-2.3); Potassium 4.3 mmoL/L (3.5-5.1); Sodium 134 mmol/L (136-145)
[2025-10-08] MEDS: IRON SUCROSE COMPLEX 200 MG in 0.9 % SODIUM CHLORIDE 100 ML 220 MG IV (13:40)
[2025-10-08 14:15] VITALS: BP 129/84; PULSE 75; RESP 14; O2SAT 97
== END 2025-10-08 23:59 | disposition home or self-care (01) ==
LOC: INF 12:18
PROVIDERS: PCP Internal Medicine; Visit Provider Internal Medicine
DX: D50.9 Iron deficiency anemia, unspecified (principal)
CPT/HCPCS: 80048; 83735; 96365; 96367; J1756; J3475

== ENCOUNTER 2025-10-08 17:44 | Observation (INO) | payer OTHER, SELFPAY ==
--- NOTE | 2025-10-08 17:41 | ECG_ITS ---
APPROVED REPORT Exam: Resting ECG HR:88 bpm ECG Measurements Heart Rate 88 AXES WY 143 P 76 QRSd 134 QRS -19 QT 408 T 88 QTc 454 Conclusion ELECTRONIC VENTRICULAR PACEMAKER ABNORMAL RHYTHM ECG No STEMI Electronically signed by : DREW MASCORRO, 10/11/2025 03:09:48
[2025-10-08 17:46] VITALS: BP 164/100; PULSE 86; RESP 18; TEMP 36.9; O2SAT 100; BMI 35.1
[2025-10-08 17:54] VITALS: BP 139/90; PULSE 69; RESP 18; O2SAT 98
--- NOTE | 2025-10-08 17:59 | XR_ITS ---
PROCEDURE INFORMATION: Exam: XR Chest Exam date and time: 10/08/2025 6:04 PM Age: 60 years old Clinical indication: Pain; Chest pressure; Additional info: Cp TECHNIQUE: Imaging protocol: Radiologic exam of the chest. Views: 1 view. COMPARISON: CR XR CHEST PORTABLE 08/08/2025 6:50 PM FINDINGS: Tubes, catheters and devices: Unchanged ICD pacemaker leads. Lungs: Unremarkable. No consolidation. Pleural spaces: Unremarkable. No pleural effusion. No pneumothorax. Heart/Mediastinum: Cardiomegaly. Vasculature: Vascular calcifications. Bones/joints: Unremarkable. IMPRESSION: No acute findings.
[2025-10-08 18:07] LABS: Hematocrit 45.8 % (42.0-52.0); Hemoglobin 15.2 g/dL (14.1-18.0); Immature Granulocytes % 0.4 %; Mean Corpuscular HGB Conc 33.2 g/dL (31.8-35.4); Mean Corpuscular Hemoglobin 26.8 pg (27.0-31.2); Mean Corpuscular Volume 80.6 fl (80-94); Nucleated Red Blood Cells % 0 %; Platelet Count 356 K/mm3 (142-424); Red Blood Count 5.68 M/mm3 (4.60-6.20); Red Cell Distribution Width-SD 57.4 fL; White Blood Count 11.4 K/mm3 (4.8-10.8)
[2025-10-08 18:15] LABS: Activated Partial Thrombo Time 31.2 seconds (22.8-30.6); INR 1.27 (0.9-1.1); Prothrombin Time 13.8 seconds (10.1-12.5)
[2025-10-08 18:19] LABS: Alanine Aminotransferase 21 U/L (12-78); Albumin Level 5.0 g/dl (3.5-5.0); Albumin/Globulin Ratio 1.3 (1.1-1.8); Alkaline Phosphatase 120 U/L (38-126); Anion Gap 21.0 mEq/L (5-15); Aspartate Amino Transferase 32 U/L (17-59); Bilirubin,Total 0.6 mg/dl (0.2-1.3); Blood Urea Nitrogen 49 mg/dl (9-20); Calcium 9.8 mg/dl (8.4-10.2); Carbon Dioxide 20 mmol/L (22.0-30.0); Chloride 98 mmol/L (98-107); Creatinine Clearance Estimated 47 mL/min (50-200); Creatinine,Serum 2.60 mg/dl (0.66-1.25); Estimated Glomerular Filt Rate 25 ml/min (>60); GFR (African American) 31 ML/MIN (>60); Globulin 3.8 g/dL (1.3-3.2); Glucose 175 mg/dl (74-100); Lipase 129 U/L (23-300); Magnesium 1.8 mg/dl (1.6-2.3); Potassium 4.0 mmoL/L (3.5-5.1); Sodium 135 mmol/L (136-145); Total Protein,Serum 8.8 g/dl (6.3-8.2)
[2025-10-08] MEDS: 0.9 % SODIUM CHLORIDE 1000ML 1,000 ML 999 ML IV (18:26)
[2025-10-08] MEDS: MORPHINE 4MG/ML SYRINGE 4 MG IV ×2 (18:27→23:13)
[2025-10-08] MEDS: ONDANSETRON 4MG/2ML VIAL 4 MG IV (18:27)
[2025-10-08 18:28] LABS: NT Pro Brain Natriuretic Pep. 4880 pg/mL (0-125)
[2025-10-08 18:30] LABS: Troponin I 0.04 ng/ml (0.00-0.034)
--- NOTE | 2025-10-08 18:30 | ED_ITS ---
<Statement entered by Rach Duncan DO - 10/08/25 22:18> I was consulted by the ANANDA, and we discussed the complexity of problems being addressed. I approve the treatment and management plan for this patient's care in the emergency department, thus performing a substantial portion of the medical decision making. Rach Duncan DO Discharge Plan Disposition Chief Complaint: Chest Pain Prescriptions Prescriptions: No Action triamcinolone acetonide 0.1 % cream 1 applic topical QID PRN (Reason: itching) Qty: 454 0RF ammonium lactate 12 % cream 1 applic topical BID Qty: 385 1RF Mounjaro 2.5 mg/0.5 mL pen injector 2.5 mg SQ WEEKLY Qty: 2 0RF Rx Instructions: for 4 weeks levocetirizine 5 mg tablet 5 mg PO DAILY Qty: 30 2RF (DME) FreeStyle Deyvi 3 Plus Sensor Device See Rx Instructions .Route Qty: 1 0RF Rx Instructions: As directed (DME) FreeStyle Deyvi 2 Colver Misc See Rx Instructions .Route Qty: 1 0RF Rx Instructions: As directed losartan 25 mg tablet 25 mg PO DAILY Qty: 30 5RF nicotine 14 mg/24 hr patch 24 hour 1 patch transdermal DAILY Qty: 14 0RF nicotine (polacrilex) 2 mg lozenge 2 mg buccal Q6H PRN (Reason: nicotine cravings) Qty: 72 0RF iron sucrose [Venofer] 200 mg iron/10 mL solution 200 mg IV WEEKLY Rx Instructions: administer over 30 mins nitroglycerin 0.4 mg tablet, sublingual 0.4 mg SL NEEDED PRN (Reason: Chest Pain) Qty: 25 3RF Rx Instructions: DISSOLVE 1 TABLET UNDER THE TONGUE EVERY 5 TO 15 MINUTES NEEDED FOR CHEST PAIN. IF NO RELIEF AFTER 3 DOSES CALL 911 lidocaine 5 % ointment 1 applic topical TID PRN (Reason: pain) Qty: 50 1RF febuxostat 80 mg tablet 80 mg PO DAILY Qty: 90 0RF Rx Instructions: TAKE 1 TABLET BY MOUTH ONCE A DAY magnesium sulfate 500 mg/mL (50 %) solution 2 g IV WEEKLY Qty: 50 0RF Xarelto 15 mg tablet 15 mg PO DAILY 30 Days Qty: 30 6RF budesonide-formoterol [Symbicort] 160-4.5 mcg/actuation HFA aerosol inhaler 2 puff PO BID Qty: 10.2 2RF promethazine 25 mg tablet 25 mg PO TID PRN (Reason: nausea and vomiting) Qty: 30 2RF torsemide 20 mg tablet 20 mg PO DAILY 30 Days Qty: 30 0RF albuterol sulfate [ProAir HFA] 90 mcg/actuation HFA aerosol inhaler 1 - 2 puff inhalation Q4HP PRN (Reason: asthma) Rx Instructions: INHALE 2 PUFFS BY MOUTH EVERY 4 TO 6 HOURS NEEDED SHORTNESS OF BREATH OR WHEEZING sennosides [senna] 8.6 mg tablet 17.2 mg PO BID PRN (Reason: Constipation) famotidine 40 mg tablet 40 mg PO BID Rx Instructions: TAKE ONE TABLET BY MOUTH 2 TIMES A DAY FOR ACID REFLUX levothyroxine 50 mcg tablet 50 mcg PO DAILY Rx Instructions: TAKE ONE TABLET BY MOUTH ONCE A DAY pantoprazole 40 mg tablet,delayed release (DR/EC) 40 mg PO DAILY Rx Instructions: TAKE ONE TABLET BY MOUTH ONCE A DAY colchicine 0.6 mg tablet 0.6 mg PO DAILY PRN (Reason: gout) Rx Instructions: TAKE ONE TABLET BY MOUTH ONCE A DAY FOR GOUT, states its PRN, ordered like this for insurance purposes eplerenone 25 mg tablet 25 mg PO DAILY Rx Instructions: TAKE 1 TABLET BY MOUTH ONCE A DAY probenecid 500 mg tablet 500 mg PO BID PRN (Reason: gout) magnesium chloride 64 mg tablet,delayed release (DR/EC) 64 mg PO BID Patient Comments: TAKE 1 TABLET BY MOUTH 2 TIMES A DAY aspirin 81 mg Tablet,Delayed Release (Dr/Ec) 81 mg PO DAILY 30 Days Qty: 30 0RF hydrocodone-acetaminophen 5-325 mg tablet 1 tab PO Q6H PRN (Reason: pain) Qty: 14 0RF bisoprolol fumarate 10 mg tablet 5 mg PO AM bisoprolol fumarate 10 mg Tablet 10 mg PO PM (DME) blood-glucose meter Misc See Rx Instructions .ROUTE .MEDSUPPLY Rx Instructions: As directed (DME) OneTouch Verio test strips Strip See Rx Instructions .ROUTE .MEDSUPPLY Rx Instructions: Check Glucose 4 times daily (DME) lancets 33 gauge misc See Rx Instructions .ROUTE .MEDSUPPLY Rx Instructions: Check Glucose 4 times daily hydroxyzine HCl 50 mg tablet 50 mg PO TID PRN (Reason: Itching) Rx Instructions: TAKE ONE TABLET BY MOUTH 3 TIMES A DAY NEEDED FOR ITCHING fluticasone propionate 50 mcg/actuation spray,suspension 1 spray intranasal DAILY PRN (Reason: Allergy Symptoms) Rx Instructions: USE 1 SPRAY IN EACH NOSTRIL ONCE A DAY FOR ALLERGIES Linzess 145 mcg capsule 145 mcg PO DAILY PRN (Reason: Constipation) Rx Instructions: TAKE ONE CAPSULE BY MOUTH ONCE A DAY Referrals Follow up/Referrals: Mingo Weiss DO [Primary Care Provider, Family Practice] - See instructions Print Language Print Language: Finnish Discharge ED Provider: Rach Duncan General Chief Complaint: Chest Pain Stated Complaint: Chest Pain Time Seen by Provider: 10/08/25 17:48 Mode of Arrival: Ambulatory Source of Information: Patient Description of Symptoms (Recalled from ER Triage Doc. by RN): Pt states he was sitting on his couch when he felt a sudden sharp stab in his mid chest and left side. PT states after the shock he experienced some light headedness as well as blurry vision. Pt had a pacemaker placed by Dr. García in maybe june/July per the pt.Pt states he has had back pain the last few days, but doesn't know if the two are related. History of Present Illness HPI narrative: 60-year-old male presents to the ED today for complaint of being shocked from with pacemaker he says he was sitting on couch and his chest felt sharp and stabbing. He says he has some lightheadedness, blurry vision.He had his pacemaker/defibrillator placed by Ricky 2 months ago. He has had back pain over the past few days as well. He has been in outpatient for iron and mag infusions. He has deranged electrolytes since he had his heart attack back in 2018. He also saw Dr Spence for his foot care today. He went home and was there for 30 minutes and started having the chest pain. Related Data Home Medications ?Medication ?Instructions ?Recorded ?Confirmed albuterol sulfate 90 mcg/actuation 1 - 2 puff inhalati on Q4HP PRN 10/22/22 10/08/25 aerosol inhaler (ProAir HFA) asthma blood sugar diagnostic (OneTouch 06/03/23 10/08/25 Verio test strips) blood-glucose meter 06/03/23 10/08/25 lancets 33 gauge 06/03/23 10/08/25 fluticasone propionate 50 1 spray intranasal DAILY PRN 04/04/25 10/08/25 mcg/actuation nasal Allergy Symptoms spray,suspension hydroxyzine HCl 50 mg tablet 50 mg PO TID PRN Itching 04/04/25 10/08/25 linaclotide 145 mcg capsule 145 mcg PO DAILY PRN Const ipation 04/04/25 10/08/25 (Linzess) colchicine 0.6 mg tablet 0.6 mg PO DAILY PRN gout 06/2510/08/25 eplerenone 25 mg tablet 25 mg PO DAILY 08/08/2506/25 famotidine 40 mg tablet 40 mg PO BID 08/08/25 levothyroxine 50 mcg tablet 50 mcg PO DAILY 08/08/25 1 12/09/24 pantoprazole 40 mg tablet,delayed 40 mg PO DAILY 08/0810/08/25 release probenecid 500 mg tablet 500 mg PO BID PRN gout 08/0810/08/25 sennosides 8.6 mg tablet (senna) 17.2 mg PO BID PRN Co nstipation 08/08/25 10/08/25 magnesium chloride 64 mg 64 mg PO BID 08/09/25 (magnesium chloride) tablet,delayed release bisoprolol fumarate 10 mg tablet 5 mg PO AM High Blood Pressure 08/20/25 10/08/25 bisoprolol fumarate 10 mg tablet 10 mg PO PM High Bloo d Pressure 08/20/25 10/08/25 Previous Rx's ?Medication ?Instructions ?Recorded triamcinolone acetonide 0.1 % 1 applic topical QID PRN itching 04/05/23 topical cream #454 grams nitroglycerin 0.4 mg sublingual 0.4 mg sublingual N EEDED PRN 09/14/23 tablet Chest Pain #25 tabs blood-glucose sensor (FreeStyle #1 ea 08/01/24 Deyvi 3 Plus Sensor device) flash glucose scanning reader #1 ea 08/01/24 (FreeStyle Deyvi 2 Colver) ammonium lactate 12 % topical cream 1 applic topical B ID dry skin, 11/28/24 callus care #385 grams lidocaine 5 % topical ointment 1 applic topical TID IL N pain #50 04/06/25 grams febuxostat 80 mg tablet 80 mg PO DAILY #90 tabs 04/01 0 magnesium sulfate 500 mg/mL (50 %) 2 g (4 mL) IV WEEKL Y Supplement 05/11/25 injection solution #50 mL losartan 25 mg tablet 25 mg PO DAILY #30 tabs 3 nicotine (polacrilex) 2 mg buccal 2 mg buccal Q6H PRN nicotine 07/27/25 lozenge cravings #72 ea nicotine 14 mg/24 hr daily 1 patch transdermal DAILY # 14 ea 07/27/25 transdermal patch aspirin 81 mg tablet,delayed 81 mg PO DAILY 30 days #3 0 tabs 08/09/25 release hydrocodone 5 mg-acetaminophen 325 1 tab PO Q6H PRN pa in #14 tabs 08/09/25 mg tablet rivaroxaban 15 mg tablet (Xarelto) 15 mg PO DAILY 30 d ays #30 tabs 08/16/25 levocetirizine 5 mg tablet 5 mg PO DAILY #30 tabs 08/02 12/26 tirzepatide 2.5 mg/0.5 mL 2.5 mg (0.5 mL) SQ WEEKLY #2 mL 08/22/25 subcutaneous pen injector (Mounjaro) iron sucrose 200 mg iron/10 mL 200 mg (10 mL) IV WEEKL Y 5 doses 09/13/25 intravenous solution (Venofer) Symbicort 160 mcg-4.5 2 puff PO BID for dyspnea #1 0.2 09/18/25 mcg/actuation HFA aerosol inhaler grams (budesonide-formoterol) promethazine 25 mg tablet 25 mg PO TID PRN nausea and 09/25/25 vomiting #30 tabs torsemide 20 mg tablet 20 mg PO DAILY 30 days #30 t abs 10/03/25 Allergies Allergy/AdvReac Type Severity Reaction Status Date / Time sacubitril (From Entresto) Allergy Mild itching Verified 10/08/25 14:51 valsartan (From Entresto) Allergy Mild itching Verified 10/08/25 14:51 amiodarone AdvReac Mild Nausea Verified 10/08/25 14:51 spironolactone AdvReac Mild gynecomasti Verified 10/08/25 14:51 a [facility] Disclaimer: The information contained in this section may have been updated after the patient was seen, as this information can be updated by other users. Medical History Atypical angina Dyspnea Encounter for pre-operative cardiovascular clearance Hyponatremia Hypocalcemia Fusion of fourth and fifth metacarpals Gout of right knee Bakers cyst Pain around toenail, left foot Scrotal swelling Epididymitis Femur fracture Scrotal edema CHF (congestive heart failure) Acute on chronic heart failure Edema Diabetes mellitus History of sinus problem Hypothyroidism Glaucoma Anxiety and depression Hypomagnesemia PTSD (post-traumatic stress disorder) Renal insufficiency GERD (gastroesophageal reflux disease) Myocardial infarct HLD (hyperlipidemia) HTN (hypertension) DVT (deep venous thrombosis) CAD (coronary artery disease) CHF (congestive heart failure) Cardiomyopathy Type 2 diabetes mellitus with complication, without long-term current use of insulin Typical angina CKD (chronic kidney disease) 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 Cough Otitis media, left Bronchitis Hyperlipidemia associated with type 2 diabetes mellitus Surgical History AICD (automatic cardioverter/defibrillator) present S/P ORIF (open reduction internal fixation) fracture femur-left History of cholecystectomy History of heart artery stent S/P drug eluting coronary stent placement Family History Other Family history of cancer Family history of diabetes mellitus type II Family history of hypertension Social History Smoking Status: Current every day smoker tobacco type: cigarettes packs per day: 1 pack-years: 40 second hand exposure: No alcohol intake: current alcohol intake frequency: a few times a month substance use type: former substance user and marijuana current occupational status: disabled Travel in the last 8 weeks?: None household members: none housing: apartment lives independently: Yes marital status: single education level: high school service: No mcfp: No current occupational exposures/hazards: No caffeine: Yes special veronica needs: No agree to transfusion: No do you feel safe at home: Yes victim of physical abuse: No victim of emotional abuse: No victim of sexual abuse: No would you like helpful sources: No Have you lived/traveled outside [place] in past 30 days?: No Contact w/someone who lives/traveled outside [place] past 30 days?: No Exposure to someone with infectious disease in past 14 days?: No Do you have a fever (greater than 100.4 F or 38 C)?: No Have you tested positive for COVID-19?: No Exposed to someone with COVID-19 in past 14 days?: No Do you have a sore throat?: No Do you have a cough?: No Do you have any weakness?: No Do you have any diarrhea?: No Are you experiencing any unusual bleeding?: No Do you have any muscle aches/pain?: No Do you have any abdominal pain?: No Are you experiencing loss of taste or smell?: No Other Medical History Have you received the Flu Vaccine for this season: No Have you received the Pneumonia Vaccine: No ROS Obtained: Yes Systems reviewed as appropriate & no additional complaints except as documented Constitutional Constitutional: Reports as per HPI Physical Exam General General appearance: alert and in no apparent distress Head Head exam: normocephalic Eye Eye exam: Present PERRL ENT ENT exam: Present normal exam and mucous membranes moist Neck Neck exam: Present trachea midline Chest Chest inspection: Present symmetric chest wall rise Respiratory Respiratory exam: Present normal lung sounds bilaterally Cardiovascular Cardiovascular exam: Present regular rate, normal rhythm, normal heart sounds, +S1 and +S2 Abdominal Exam Abdominal exam: Present soft and normal bowel sounds Extremities Exam Extremities exam: Present full ROM and normal capillary refill Back Exam Back exam: Present full ROM Neurological Exam Neurological exam: Present alert and oriented X3 Psychiatric Psychiatric exam: Present anxious Skin Skin exam: Present warm and dry HEART Score HEART Score HEART Score assessment performed?: Yes History (anamnesis): Moderately suspicious ECG: Non-specific disturbance Age: 45-65 years Risk factors: 3 or more risk factors Troponin: 1-3x normal limit HEART Score: 6 Critical Care Critical Care Time Critical Care Time: No Medical Decision Making Uziel Inquiry Pt receiving controlled substance: No Uziel was queried for this patient: No Vital Signs Vital Signs: 10/08/25 17:46 10/08/25 17:54 10/08/25 18:50 Temperature 98.4 F Temperature Source Oral Pulse Rate 69 86 Pulse Rate [Right] 86 Respiratory Rate 18 18 Blood Pressure 139/90 Blood Pressure [Right Arm] 164/100 H Blood Pressure Mean [Right Arm] 121 Blood Pressure Source Automatic Cuff Blood Pressure Source [Right Arm] Automatic Cuff Blood Pressure Position Sitting Blood Pressure Position [Right Arm] Sitting 02 Sat by Pulse Oximetry 100 98 Oxygen Delivery Method Room Air Room Air Lab Data Labs: Lab Results 10/08/25 14:45: NT-Pro-B Natriuret Pep 4880 H 10/08/25 17:45: WBC 11.4 H, RBC 5.68, Hgb 15.2, Hct 45.8, MCV 80.6, MCH 26.8 L, MCHC 33.2, RDW 20.0 H, Plt Count 356, MPV 8.7, Neut % (Auto) 62.6, Lymph % (Auto) 22.3, [place] % (Auto) 11.7 H, Eos % (Auto) 2.2, Baso % (Auto) 0.8, Neut # (Auto) 7.1, Lymph # (Auto) 2.5, [place] # (Auto) 1.3 H, Eos # (Auto) 0.3, Baso # (Auto) 0.1, PT 13.8 H, INR 1.27 H, APTT 31.2 H, Sodium 135 L, Potassium 4.0, Chloride 98, Carbon Dioxide 20 L, Anion Gap 21.0 H, BUN 49 H, Creatinine 2.60 H, Estimated Creat Clear 47, Estimated GFR 25 L, Est GFR ( Amer) 31 L, G lucose 175 H, Calcium 9.8, Magnesium 1.8 D, Total Bilirubin 0.6, AST 32, ALT 21, Alkaline Phosphatase 120, Troponin I 0.04 H, Total Protein 8.8 H, Albumin 5.0, Globulin 3.8 H, Albumin/Globulin Ratio 1.3, Lipase 129 10/08/25 18:39: SARS-CoV-2 (PCR) Not detected, Influenza A Untype (PCR) Not detected, Influenza Type B (PCR) Not detected 10/08/25 20:15: Troponin I 0.04 H 10/08/25 17:45 10/08/25 17:45 Response Orders (Tests/Meds): ED MEDICATIONS Generic Name Dose Route Start Last Admin Trade Name Freq PRN Reason Stop Dose Admin Nicotine 21 mg 10/09/25 09:00 Nicotine 21mg/24hr Patch TD 11/08/25 08:59 DAILY CYNDEE Discontinued Medications Generic Name Dose Route Start Last Admin Trade Name Freq PRN Reason Stop Dose Admin Sodium Chloride 1,000 mls @ 999 mls/hr 10/08/25 17:59 10/08/25 20:20 Sod Chlor 0.9% 1000ml Bag IV 10/08/25 18:59 Infused .Q1H1M ONE Infusion Morphine Sulfate 4 mg 10/08/25 17:59 10/08/25 18:27 Morphine 4mg/Ml Syringe IV 10/08/25 18:00 4 mg ONCE ONE Administration Ondansetron HCl 4 mg 10/08/25 17:59 10/08/25 18:27 Ondansetron 4mg/2ml Vial IV 10/08/25 18:00 4 mg ONCE ONE Administration ORDERS Category Date Time Status Chest XR -- portable [XR chest portable] Stat Exams 10/08/25 17:59 Completed BNP [NT Pro Brain Natriuretic Pep.] Stat Lab 10/08/25 14:45 Completed CBC [Complete Blood Count Auto Diff] Stat Lab 10/08/25 17:45 Completed Comprehensive Metabolic Panel Stat Lab 10/08/25 17:45 Completed Free T4 (Free Thyroxine) Stat Lab 10/08/25 21:35 Ordered Lipase Stat Lab 10/08/25 17:45 Completed Magnesium Stat Lab 10/08/25 17:45 Completed PT INR [Prothrombin Time INR] Stat Lab 10/08/25 17:45 Completed PTT [Activated Partial Thrombo Time] Stat Lab 10/08/25 17:45 Completed Rapid PCR Covid and Flu A/B Stat Lab 10/08/25 18:39 Completed TSH [Thyroid Stimulating Hormone] Stat Lab 10/08/25 21:35 Ordered Trop I [Troponin I] Stat Lab 10/08/25 17:45 Completed Troponin I Q3H Lab 10/08/25 20:15 Completed Troponin I Q3H Lab 10/09/25 00:00 Ordered MDM Narrative Medical Decision Narrative: patient is a 60 year old male presenting to the emergency department for evaluation of aicd shock and chest pain. Patient is hemodynamically stable and nontoxic-appearing upon arrival, afebrile. Differential diagnosis includes arrythmia, acs, pe, mi. Workup will be conducted with hematologic labs, specific imaging, provocative tests including interrogation of pacer. The pacer did not shock him today but he has been in and out of afib today, is not in afib on our monitor currently he is vpaced. He has history of paroxysmal afib. Initial inventions include crystalloid bolus, analgesics. Initial workup reviewed by me hematologic labs are remarkable for wbc 11.4, inr was 1.27, bun and creatinine were stable for patient, first troponin was 0.04, second 0.04. I discussed with Dr García and he would like to admit this patient for elevated troponins. Patient is agreeable. Will give nicotine patch as requested
[2025-10-08 18:45] LABS: Coronavirus 19, PCR Not Detected (NotDetected); Influenza A, PCR Not Detected (NotDetected); Influenza B, PCR Not Detected (NotDetected)
--- NOTE | 2025-10-08 18:48 | PC.NURSE ---
Spoke with abbot renee for pt's pacemaker on the phone. stated the pacer/defib was working perfectly and did not fire tonight when the pt felt the pain.
[2025-10-08 18:50] VITALS: PULSE 86
[2025-10-08 21:09] LABS: Troponin I 0.04 ng/ml (0.00-0.034)
--- NOTE | 2025-10-08 21:41 | ECG_ITS ---
APPROVED REPORT Exam: Resting ECG HR:70 bpm ECG Measurements Heart Rate 70 AXES VT 162 P 116 QRSd 127 QRS 121 QT 441 T 92 QTc 463 Conclusion ELECTRONIC ATRIAL PACEMAKER ELECTRONIC VENTRICULAR PACEMAKER No STEMI Electronically signed by : DREW MASCORRO, 10/12/2025 06:53:38
[2025-10-08 22:17] LABS: Free T4 (Free Thyroxine) 1.20 ng/dl (0.78-2.19)
[2025-10-08 22:31] LABS: Thyroid Stimulating Hormone 1.66 uIU/mL (0.465-4.68)
[2025-10-08 22:49] VITALS: BP 136/80; PULSE 80; RESP 18; TEMP 36.6; O2SAT 97
[2025-10-08 22:55] VITALS: BP 131/84; PULSE 72; RESP 16; TEMP 36.7; O2SAT 99; BMI 35.1
[2025-10-09] VITALS: BP 120/77; PULSE 70; RESP 16; TEMP 36.4; O2SAT 100
[2025-10-09 01:28] LABS: Troponin I 0.05 ng/ml (0.00-0.034)
--- NOTE | 2025-10-09 03:14 | P.HP_ITS ---
<Statement entered by Amilcar Strong MD - 10/09/25 07:39> Rounded on patient after nurse practitioner. Personally examined and interviewed patient. Agree with exam findings and care plan as documented. History of Present Illness *Admission Date: 10/08/25 *Reason for visit:: Chest pain *History of present illness: This is a 60-year-old male with a past medical history of iron deficiency anemia, atrial fibrillation, ischemic cardiomyopathy, HFrEF status post AICD, hypertension, DM2, tobacco use disorder who presents the emergency department today with complaints of chest pain. He reports left-sided chest pain that was sharp in nature. He states that it felt like that his AICD fired. Also reports that the sharp pain is gone away but now has a burning sensation. States it felt like he got kicked in the chest. He underwent AICD placement in August with Dr. García. States that he has been doing well since then. He states that his lower extremity edema has improved and felt like he was doing okay. He reports the pain was sharp and sudden while he was sitting on his chest. He also experienced lightheadedness and blurry vision that was transient. Emergency Department workup notable for mildly elevated troponin at 0.04 with repeat flat at 0.04. Pacemaker AICD was interrogated and noted to have multiple episodes of atrial fibrillation but it does not appear that he had a discharge of his AICD. Renal function is stable at his baseline of 2.6. proBNP of 4888. Given his episode of chest pain and mildly elevated troponin it was felt he would benefit from hospitalization. Dr. García consulted prior to hospitalization and agrees with this plan. [facility] Disclaimer: The information contained in this section may have been updated after the patient was seen, as this information can be updated by other users. Medical History Atypical angina Dyspnea Encounter for pre-operative cardiovascular clearance Hyponatremia Hypocalcemia Fusion of fourth and fifth metacarpals Gout of right knee Bakers cyst Pain around toenail, left foot Scrotal swelling Epididymitis Femur fracture Scrotal edema CHF (congestive heart failure) Acute on chronic heart failure Edema Diabetes mellitus History of sinus problem Hypothyroidism Glaucoma Anxiety and depression Hypomagnesemia PTSD (post-traumatic stress disorder) Renal insufficiency GERD (gastroesophageal reflux disease) Myocardial infarct HLD (hyperlipidemia) HTN (hypertension) DVT (deep venous thrombosis) CAD (coronary artery disease) CHF (congestive heart failure) Cardiomyopathy Type 2 diabetes mellitus with complication, without long-term current use of insulin Typical angina CKD (chronic kidney disease) 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 Cough Otitis media, left Bronchitis Hyperlipidemia associated with type 2 diabetes mellitus Surgical History AICD (automatic cardioverter/defibrillator) present S/P ORIF (open reduction internal fixation) fracture femur-left History of cholecystectomy History of heart artery stent S/P drug eluting coronary stent placement Family History Other Family history of cancer Family history of diabetes mellitus type II Family history of hypertension Social History (Updated 10/08/25 @ 23:03 by Thao Ball RN) Smoking Status: Current every day smoker tobacco type: cigarettes packs per day: 1 pack-years: 40 second hand exposure: No alcohol intake: current alcohol intake frequency: a few times a month substance use type: former substance user and marijuana current occupational status: disabled Travel in the last 8 weeks?: None household members: none housing: apartment lives independently: Yes marital status: single education level: high school service: No alf: No current occupational exposures/hazards: No caffeine: Yes special veronica needs: No agree to transfusion: No do you feel safe at home: Yes victim of physical abuse: No victim of emotional abuse: No victim of sexual abuse: No would you like helpful sources: No Have you lived/traveled outside [place] in past 30 days?: No Contact w/someone who lives/traveled outside [place] past 30 days?: No Exposure to someone with infectious disease in past 14 days?: No Do you have a fever (greater than 100.4 F or 38 C)?: No Have you tested positive for COVID-19?: No Exposed to someone with COVID-19 in past 14 days?: No Do you have a sore throat?: No Do you have a cough?: No Do you have any weakness?: No Do you have any diarrhea?: No Are you experiencing any unusual bleeding?: No Do you have any muscle aches/pain?: No Do you have any abdominal pain?: No Are you experiencing loss of taste or smell?: No Other Medical History Have you received the Flu Vaccine for this season: No Have you received the Pneumonia Vaccine: No Review of Systems Review of Systems Review of systems:: pertinent systems reviewed and negative unless documented below Review of systems (narrative): Negative except for HPI Meds Home Medications and Allergies Home Medications ?Medication ?Instructions ?Recorded ?Confirmed ?Type albuterol sulfate 90 mcg/actuation 1 - 2 puff inhalati on Q4HP PRN 10/22/22 10/08/25 History aerosol inhaler (ProAir HFA) asthma triamcinolone acetonide 0.1 % 1 applic topical QID PRN itching 04/05/23 10/08/25 Rx topical cream #454 grams blood sugar diagnostic (OneTouch 06/03/23 10/08/25 iSkoot Verio test strips) blood-glucose meter 06/03/23 10/08/25 History lancets 33 gauge 06/03/23 10/08/25 History nitroglycerin 0.4 mg sublingual 0.4 mg sublingual N EEDED PRN 09/14/23 10/08/25 Rx tablet Chest Pain #25 tabs blood-glucose sensor (FreeStyle #1 ea 08/01/24 5 Rx Deyvi 3 Plus Sensor device) flash glucose scanning reader #1 ea 08/01/24 10/08/25 Rx (FreeStyle Deyvi 2 [place]) ammonium lactate 12 % topical cream 1 applic topical B ID dry skin, 11/28/24 10/08/25 Rx callus care #385 grams fluticasone propionate 50 1 spray intranasal DAILY PRN 04/04/25 10/08/25 History mcg/actuation nasal Allergy Symptoms spray,suspension hydroxyzine HCl 50 mg tablet 50 mg PO TID PRN Itching 04/04/25 10/08/25 History linaclotide 145 mcg capsule 145 mcg PO DAILY PRN Const ipation 04/04/25 10/08/25 History (Linzess) lidocaine 5 % topical ointment 1 applic topical TID [place] N pain #50 04/06/25 10/08/25 Rx grams febuxostat 80 mg tablet 80 mg PO DAILY #90 tabs 04/0110/08/25 Rx magnesium sulfate 500 mg/mL (50 %) 2 g (4 mL) IV WEEKL Y Supplement 05/11/25 10/08/25 Rx injection solution #50 mL losartan 25 mg tablet 25 mg PO DAILY #30 tabs 01/2310/08/25 Rx nicotine (polacrilex) 2 mg buccal 2 mg buccal Q6H PRN nicotine 07/27/25 10/08/25 Rx lozenge cravings #72 ea nicotine 14 mg/24 hr daily 1 patch transdermal DAILY # 14 ea 07/27/25 10/08/25 Rx transdermal patch colchicine 0.6 mg tablet 0.6 mg PO DAILY PRN gout 06/2510/08/25 History eplerenone 25 mg tablet 25 mg PO DAILY 08/08/2506/25 History famotidine 40 mg tablet 40 mg PO BID 08/08/25 History levothyroxine 50 mcg tablet 50 mcg PO DAILY 08/08/25 1 12/09/24 History pantoprazole 40 mg tablet,delayed 40 mg PO DAILY 08/0810/08/25 History release probenecid 500 mg tablet 500 mg PO BID PRN gout 08/0810/08/25 History sennosides 8.6 mg tablet (senna) 17.2 mg PO BID PRN Co nstipation 08/08/25 10/08/25 History aspirin 81 mg tablet,delayed 81 mg PO DAILY 30 days #3 0 tabs 08/09/25 10/08/25 Rx release hydrocodone 5 mg-acetaminophen 325 1 tab PO Q6H PRN pa in #14 tabs 08/09/25 10/08/25 Rx mg tablet magnesium chloride 64 mg 64 mg PO BID 08/09/25 History (magnesium chloride) tablet,delayed release rivaroxaban 15 mg tablet (Xarelto) 15 mg PO DAILY 30 d ays #30 tabs 08/16/25 10/08/25 Rx bisoprolol fumarate 10 mg tablet 5 mg PO AM High Blood Pressure 08/20/25 10/08/25 History bisoprolol fumarate 10 mg tablet 10 mg PO PM High Bloo d Pressure 08/20/25 10/08/25 History levocetirizine 5 mg tablet 5 mg PO DAILY #30 tabs 08/0210/08/25 Rx tirzepatide 2.5 mg/0.5 mL 2.5 mg (0.5 mL) SQ WEEKLY #2 mL 08/22/25 10/08/25 Rx subcutaneous pen injector (Mounjaro) iron sucrose 200 mg iron/10 mL 200 mg (10 mL) IV WEEKL Y 5 doses 09/13/25 10/08/25 Rx intravenous solution (Venofer) Symbicort 160 mcg-4.5 2 puff PO BID for dyspnea #1 0.2 09/18/25 10/08/25 Rx mcg/actuation HFA aerosol inhaler grams (budesonide-formoterol) promethazine 25 mg tablet 25 mg PO TID PRN nausea and 09/25/25 10/08/25 Rx vomiting #30 tabs torsemide 20 mg tablet 20 mg PO DAILY 30 days #30 t abs 10/03/25 10/08/25 Rx New Prescriptions to Start Prescriptions: Allergies Allergy/AdvReac Type Severity Reaction Status Date / Time sacubitril (From Entresto) Allergy Mild itching Verified 10/08/25 14:51 valsartan (From Entresto) Allergy Mild itching Verified 10/08/25 14:51 amiodarone AdvReac Mild Nausea Verified 10/08/25 14:51 spironolactone AdvReac Mild gynecomasti Verified 10/08/25 14:51 a Exam Data for Last 24 hours Vital signs and Labs for Last 24 Hours: Temp Pulse Resp BP Pulse Ox O2 Del Method 98.0 F 72 16 131/84 99 Room Air 10/08/25 22:55 10/08/25 22:55 10/08/25 22:55 10/08/25 22:55 10/08/25 22:55 10/09/25 01:00 Laboratory Results - last 24 hr 10/08/25 14:45: NT-Pro-B Natriuret Pep 4880 H 10/08/25 17:45: WBC 11.4 H, RBC 5.68, Hgb 15.2, Hct 45.8, MCV 80.6, MCH 26.8 L, MCHC 33.2, RDW 20.0 H, Plt Count 356, MPV 8.7, Neut % (Auto) 62.6, Lymph % (Auto) 22.3, [place] % (Auto) 11.7 H, Eos % (Auto) 2.2, Baso % (Auto) 0.8, Neut # (Auto) 7.1, Lymph # (Auto) 2.5, [place] # (Auto) 1.3 H, Eos # (Auto) 0.3, Baso # (Auto) 0.1, PT 13.8 H, INR 1.27 H, APTT 31.2 H, Sodium 135 L, Potassium 4.0, Chloride 98, Carbon Dioxide 20 L, Anion Gap 21.0 H, BUN 49 H, Creatinine 2.60 H, Estimated Creat Clear 47, Estimated GFR 25 L, Est GFR ( Amer) 31 L, Glucose 175 H, Calcium 9.8, Magnesium 1.8 D, Total Bilirubin 0.6, AST 32, ALT 21, Alkaline Phosphatase 120, Troponin I 0.04 H, Total Protein 8.8 H, Albumin 5.0, Globulin 3.8 H, Albumin/Globulin Ratio 1.3, Lipase 129, TSH 1.66, Free T4 1.20 10/08/25 18:39: SARS-CoV-2 (PCR) Not detected, Influenza A Untype (PCR) Not detected, Influenza Type B (PCR) Not detected 10/08/25 20:15: Troponin I 0.04 H 10/09/25 00:43: Troponin I 0.05 H I & O for Last 24 hours: Intake & Output 10/06/25 10/07/25 10/08/25 10/09/25 23:59 23:59 23:59 23:59 Intake Total 1000 / 1000 Balance 1000 / 1000 Weight 107.547 kg Constitutional Constitutional: no acute distress *Routine HEENT Exam Head: Present normocephalic Eye: Present EOMI and PERRL ENT: Present mucous membranes moist *Routine Neck Exam Neck: Present supple; Absent lymphadenopathy *Routine Respiratory Exam Respiratory: Present CTA bilaterally *Routine Cardiovascular Exam Cardiovascular: Present RRR *Routine Abdominal Exam Abdominal: Present soft and normoactive bowel sounds; Absent tenderness *Routine Rectal Exam Rectal:: deferred *Routine Genitalia Exam Genitalia:: deferred *Routine Extremities Exam Extremities: Absent cyanosis, clubbing or edema *Routine Skin Exam Skin: Present warm; Absent rash *Routine Neurological Exam Neurological: Present alert and oriented X3 Assessment and Plan *Assessment and plan (1) Chest pain: Status: Acute Category: Medical Code(s): R07.9 - Chest pain, unspecified (2) Elevated troponin: Status: Acute Category: Medical Code(s): R79.89 - Other specified abnormal findings of blood chemistry (3) Hypothyroidism (acquired): Problem Comment: TSH>5 Status: Chronic Category: Medical Code(s): E03.9 - Hypothyroidism, unspecified (4) HTN (hypertension): Status: Chronic Qualifiers: Hypertension type: primary hypertension Qualified Code(s): I10 - Essential (primary) hypertension Category: Medical Code(s): I10 - Essential (primary) hypertension (5) CAD (coronary artery disease): Status: Chronic Qualifiers: Coronary Disease-Associated Artery/Lesion type: [place] artery [place] vs. transplanted heart: [place]i heart Associated angina: without angina Qualified Code(s): I25.10 - Atherosclerotic heart disease of [place] coronary artery without angina pectoris Category: Medical Code(s): I25.10 - Atherosclerotic heart disease of [place] coronary artery without angina pectoris (6) Type 2 diabetes mellitus: Status: Chronic Qualifiers: Diabetes mellitus senior care insulin use: without senior care use Diabetes mellitus complication status: with kidney complications Diabetes mellitus complication detail: with chronic kidney disease Chronic kidney disease stage: stage 3 (moderate) Chronic kidney disease stage 3 subtype: stage 3b (GFR 30-44) Qualified Code(s): E11.22 - Type 2 diabetes mellitus with diabetic chronic kidney disease; N18.32 - Chronic kidney disease, stage 3b Category: Medical Code(s): E11.9 - Type 2 diabetes mellitus without complications Plan #Chest pain #Elevated troponin # AICD in situ Troponin flat at 0.04 with a mild uptrend to 0.05 but no acute ischemia noted on EKG Continues to complain of burning pain in the left side of his chest but states it is substantially reduced from earlier Will provide patient with 1 dose of morphine for comfort and rest as patient states that he is anxious about being back in the hospital Elevated troponin likely secondary to demand Cardiology consult for a.m., appreciate recommendations #CAD Continue home Xarelto 15 mg daily and aspirin 81 mg daily #Hypothyroidism Continue home levothyroxine 50 mcg daily #Hypertension Continue home medications once reconciled # COPD Stable, in no exacerbation at this time. Continue bronchodilators as needed #GERD Continue home pantoprazole daily #HFpEF Chronic, not in exacerbation at this time. Patient reports ports being at his dry weight and feeling well from a diuretic standpoint Continue home furosemide 20 mg daily
[2025-10-09 04:00] VITALS: BP 108/71; PULSE 70; RESP 16; TEMP 36.6; O2SAT 99; BMI 35.1
[2025-10-09] MEDS: humaLOG 100 UNITS/ML 10ML VIAL (SSI) SUBCUT ×2 (06:06→11:55)
[2025-10-09] MEDS: ASPIRIN 81MG CHEWABLE TABLET 81 MG PO (06:06)
[2025-10-09 06:29] LABS: Hematocrit 42.8 % (42.0-52.0); Hemoglobin 13.9 g/dL (14.1-18.0); Immature Granulocytes % 0.6 %; Mean Corpuscular HGB Conc 32.5 g/dL (31.8-35.4); Mean Corpuscular Hemoglobin 26.6 pg (27.0-31.2); Mean Corpuscular Volume 81.8 fl (80-94); Nucleated Red Blood Cells % 0 %; Platelet Count 269 K/mm3 (142-424); Red Blood Count 5.23 M/mm3 (4.60-6.20); Red Cell Distribution Width-SD 57.9 fL; White Blood Count 7.1 K/mm3 (4.8-10.8)
[2025-10-09 07:07] LABS: Troponin I 0.04 ng/ml (0.00-0.034)
--- NOTE | 2025-10-09 07:15 | EXP.DC.SUM ---
General Admission date:: 10/08/25 HPI HPI HPI: This is a 60-year-old male with a past medical history of iron deficiency anemia, atrial fibrillation, ischemic cardiomyopathy, HFrEF status post AICD, hypertension, DM2, tobacco use disorder who presents the emergency department today with complaints of chest pain. He reports left-sided chest pain that was sharp in nature. He states that it felt like that his AICD fired. Also reports that the sharp pain is gone away but now has a burning sensation. States it felt like he got kicked in the chest. He underwent AICD placement in August with Dr. García. States that he has been doing well since then. He states that his lower extremity edema has improved and felt like he was doing okay. He reports the pain was sharp and sudden while he was sitting on his chest. He also experienced lightheadedness and blurry vision that was transient. Emergency Department workup notable for mildly elevated troponin at 0.04 with repeat flat at 0.04. Pacemaker AICD was interrogated and noted to have multiple episodes of atrial fibrillation but it does not appear that he had a discharge of his AICD. Renal function is stable at his baseline of 2.6. proBNP of 4888. Given his episode of chest pain and mildly elevated troponin it was felt he would benefit from hospitalization. Dr. García consulted prior to hospitalization and agrees with this plan. Exam Data for Last 24 hours Vital signs and Labs for Last 24 Hours: Temp Pulse Resp BP Pulse Ox O2 Del Method 97.8 F 70 16 108/71 L 99 Room Air 10/09/25 04:00 10/09/25 04:00 10/09/25 04:00 10/09/25 04:00 10/09/25 04:00 10/09/25 06:59 Laboratory Results - last 24 hr 10/08/25 14:45: NT-Pro-B Natriuret Pep 4880 H 10/08/25 17:45: WBC 11.4 H, RBC 5.68, Hgb 15.2, Hct 45.8, MCV 80.6, MCH 26.8 L, MCHC 33.2, RDW 20.0 H, Plt Count 356, MPV 8.7, Neut % (Auto) 62.6, Lymph % (Auto) 22.3, [place] % (Auto) 11.7 H, Eos % (Auto) 2.2, Baso % (Auto) 0.8, Neut # (Auto) 7.1, Lymph # (Auto) 2.5, [place] # (Auto) 1.3 H, Eos # (Auto) 0.3, Baso # (Auto) 0.1, PT 13.8 H, INR 1.27 H, APTT 31.2 H, Sodium 135 L, Potassium 4.0, Chloride 98, Carbon Dioxide 20 L, Anion Gap 21.0 H, BUN 49 H, Creatinine 2.60 H, Estimated Creat Clear 47, Estimated GFR 25 L, Est GFR ( Amer) 31 L, Glucose 175 H, Calcium 9.8, Magnesium 1.8 D, Total Bilirubin 0.6, AST 32, ALT 21, Alkaline Phosphatase 120, Troponin I 0.04 H, Total Protein 8.8 H, Albumin 5.0, Globulin 3.8 H, Albumin/Globulin Ratio 1.3, Lipase 129, TSH 1.66, Free T4 1.20 10/08/25 18:39: SARS-CoV-2 (PCR) Not detected, Influenza A Untype (PCR) Not detected, Influenza Type B (PCR) Not detected 10/08/25 20:15: Troponin I 0.04 H 10/09/25 00:43: Troponin I 0.05 H 10/09/25 05:50: WBC 7.1 D, RBC 5.23, Hgb 13.9 L, Hct 42.8, MCV 81.8, MCH 26.6 L, MCHC 32.5, RDW 19.9 H, Plt Count 269, MPV 8.5, Neut % (Auto) 61.4, Lymph % (Auto) 22.4, [place] % (Auto) 12.3 H, Eos % (Auto) 2.7, Baso % (Auto) 0.6, Neut # (Auto) 4.4, Lymph # (Auto) 1.6, [place] # (Auto) 0.9, Eos # (Auto) 0.2, Baso # (Auto) 0.0 I & O for Last 24 hours: Intake & Output 10/06/25 10/07/25 10/08/25 10/09/25 23:59 23:59 23:59 23:59 Intake Total 1000 / 1000 Output Total 0 / 0 Balance 1000 / 1000 0 / 0 Weight 107.547 kg 107.543 kg Results Data Completed and Pending Labs on day of discharge: Labs from last 24 hours 10/09/25 10/09/25 10/08/25 05:50 00:43 20:15 WBC 7.1 D RBC 5.23 Hgb 13.9 L Hct 42.8 MCV 81.8 MCH 26.6 L MCHC 32.5 RDW 19.9 H Plt Count 269 MPV 8.5 Neut % (Auto) 61.4 Lymph % (Auto) 22.4 [place] % (Auto) 12.3 H Eos % (Auto) 2.7 Baso % (Auto) 0.6 Neut # (Auto) 4.4 Lymph # (Auto) 1.6 [place] # (Auto) 0.9 Eos # (Auto) 0.2 Baso # (Auto) 0.0 PT INR APTT Sodium Potassium Chloride Carbon Dioxide Anion Gap BUN Creatinine Estimated Creat Clear Estimated GFR Est GFR ( Amer) Glucose Calcium Magnesium Total Bilirubin AST ALT Alkaline Phosphatase Troponin I 0.05 H 0.04 H NT-Pro-B Natriuret Pep Total Protein Albumin Globulin Albumin/Globulin Ratio Lipase TSH Free T4 SARS-CoV-2 (PCR) Influenza A Untype (PCR) Influenza Type B (PCR) 10/08/25 10/08/25 10/08/25 18:39 17:45 14:45 WBC 11.4 H RBC 5.68 Hgb 15.2 Hct 45.8 MCV 80.6 MCH 26.8 L MCHC 33.2 RDW 20.0 H Plt Count 356 MPV 8.7 Neut % (Auto) 62.6 Lymph % (Auto) 22.3 [place] % (Auto) 11.7 H Eos % (Auto) 2.2 Baso % (Auto) 0.8 Neut # (Auto) 7.1 Lymph # (Auto) 2.5 [place] # (Auto) 1.3 H Eos # (Auto) 0.3 Baso # (Auto) 0.1 PT 13.8 H INR 1.27 H APTT 31.2 H Sodium 135 L Potassium 4.0 Chloride 98 Carbon Dioxide 20 L Anion Gap 21.0 H BUN 49 H Creatinine 2.60 H Estimated Creat Clear 47 Estimated GFR 25 L Est GFR ( Amer) 31 L Glucose 175 H Calcium 9.8 Magnesium 1.8 D Total Bilirubin 0.6 AST 32 ALT 21 Alkaline Phosphatase 120 Troponin I 0.04 H NT-Pro-B Natriuret Pep 4880 H Total Protein 8.8 H Albumin 5.0 Globulin 3.8 H Albumin/Globulin Ratio 1.3 Lipase 129 TSH 1.66 Free T4 1.20 SARS-CoV-2 (PCR) Not detected Influenza A Untype (PCR) Not detected Influenza Type B (PCR) Not detected DS: Diagnosis Discharge Diagnosis (1) Chest pain: Status: Acute Code(s): R07.9 - Chest pain, unspecified (2) Elevated troponin: Status: Acute Code(s): R79.89 - Other specified abnormal findings of blood chemistry (3) Hypothyroidism (acquired): Status: Chronic Code(s): E03.9 - Hypothyroidism, unspecified Problem details: TSH>5 (4) HTN (hypertension): Status: Chronic Code(s): I10 - Essential (primary) hypertension Qualifiers: Hypertension type: primary hypertension Qualified Code(s): I10 - Essential (primary) hypertension (5) CAD (coronary artery disease): Status: Chronic Code(s): I25.10 - Atherosclerotic heart disease of [place] coronary artery without angina pectoris Qualifiers: Coronary Disease-Associated Artery/Lesion type: [place] artery [place] vs. transplanted heart: [place] heart Associated angina: without angina Qualified Code(s): I25.10 - Atherosclerotic heart disease of [place] coronary artery without angina pectoris (6) Type 2 diabetes mellitus: Status: Chronic Code(s): E11.9 - Type 2 diabetes mellitus without complications Qualifiers: Diabetes mellitus group home insulin use: without group home use Diabetes mellitus complication status: with kidney complications Diabetes mellitus complication detail: with chronic kidney disease Chronic kidney disease stage: stage 3 (moderate) Chronic kidney disease stage 3 subtype: stage 3b (GFR 30-44) Qualified Code(s): E11.22 - Type 2 diabetes mellitus with diabetic chronic kidney disease; N18.32 - Chronic kidney disease, stage 3b Meds Home Medications and Allergies Home Medications ?Medication ?Instructions ?Recorded ?Confirmed ?Type albuterol sulfate 90 mcg/actuation 1 - 2 puff inhalation Q4HP PRN 10/22/22 10/08/25 History aerosol inhaler (ProAir HFA) asthma triamcinolone acetonide 0.1 % 1 applic topical QID PRN itching 04/05/23 10/08/25 Rx topical cream #454 grams blood sugar diagnostic (OneTouch 06/03/23 10/08/25 History Verio test strips) blood-glucose meter 06/03/23 10/08/25 History lancets 33 gauge 06/03/23 10/08/25 History nitroglycerin 0.4 mg sublingual 0.4 mg sublingual NEEDED PRN 09/14/23 10/08/25 Rx tablet Chest Pain #25 tabs blood-glucose sensor (FreeStyle #1 ea 08/01/24 10/08/25 Rx Deyvi 3 Plus Sensor device) flash glucose scanning reader #1 ea 08/01/24 10/08/25 Rx (FreeStyle [place]yvi 2 [place]) ammonium lactate 12 % topical cream 1 applic topical BID dry skin, 11/28/24 10/08/25 Rx callus care #385 grams fluticasone propionate 50 1 spray intranasal DAILY PRN 04/04/25 10/08/25 History mcg/actuation nasal Allergy Symptoms spray,suspension hydroxyzine HCl 50 mg tablet 50 mg PO TID PRN Itching 04/04/25 10/08/25 History linaclotide 145 mcg capsule 145 mcg PO DAILY PRN Constipation 04/04/25 10/08/25 History (Linzess) lidocaine 5 % topical ointment 1 applic topical TID PRN pain #50 04/06/25 10/08/25 Rx grams febuxostat 80 mg tablet 80 mg PO DAILY #90 tabs 04/10/25 10/08/25 Rx magnesium sulfate 500 mg/mL (50 %) 2 g (4 mL) IV WEEKLY Supplement 05/11/25 10/08/25 Rx injection solution #50 mL losartan 25 mg tablet 25 mg PO DAILY #30 tabs 07/04/25 10/08/25 Rx nicotine (polacrilex) 2 mg buccal 2 mg buccal Q6H PRN nicotine 07/27/25 10/08/25 Rx lozenge cravings #72 ea nicotine 14 mg/24 hr daily 1 patch transdermal DAILY #14 ea 07/27/25 10/08/25 Rx transdermal patch colchicine 0.6 mg tablet 0.6 mg PO DAILY PRN gout 08/08/25 10/08/25 History eplerenone 25 mg tablet 25 mg PO DAILY 08/08/25 10/08/25 History famotidine 40 mg tablet 40 mg PO BID 08/08/25 10/08/25 History levothyroxine 50 mcg tablet 50 mcg PO DAILY 08/08/25 10/08/25 History pantoprazole 40 mg tablet,delayed 40 mg PO DAILY 08/08/25 10/08/25 History release probenecid 500 mg tablet 500 mg PO BID PRN gout 08/08/25 10/08/25 History sennosides 8.6 mg tablet (senna) 17.2 mg PO BID PRN Constipation 08/08/25 10/08/25 History aspirin 81 mg tablet,delayed 81 mg PO DAILY 30 days #30 tabs 08/09/25 10/08/25 Rx release hydrocodone 5 mg-acetaminophen 325 1 tab PO Q6H PRN pain #14 tabs 08/09/25 10/08/25 Rx mg tablet magnesium chloride 64 mg 64 mg PO BID 08/09/25 10/08/25 History (magnesium chloride) tablet,delayed release rivaroxaban 15 mg tablet (Xarelto) 15 mg PO DAILY 30 days #30 tabs 08/16/25 10/08/25 Rx bisoprolol fumarate 10 mg tablet 5 mg PO AM High Blood Pressure 08/20/25 10/08/25 History bisoprolol fumarate 10 mg tablet 10 mg PO PM High Blood Pressure 08/20/25 10/08/25 History levocetirizine 5 mg tablet 5 mg PO DAILY #30 tabs 08/22/25 10/08/25 Rx tirzepatide 2.5 mg/0.5 mL 2.5 mg (0.5 mL) SQ WEEKLY #2 mL 08/22/25 10/08/25 Rx subcutaneous pen injector (Mounjaro) iron sucrose 200 mg iron/10 mL 200 mg (10 mL) IV WEEKLY 5 doses 09/13/25 10/08/25 Rx intravenous solution (Venofer) Symbicort 160 mcg-4.5 2 puff PO BID for dyspnea #10.2 09/18/25 10/08/25 Rx mcg/actuation HFA aerosol inhaler grams (budesonide-formoterol) promethazine 25 mg tablet 25 mg PO TID PRN nausea and 09/25/25 10/08/25 Rx vomiting #30 tabs torsemide 20 mg tablet 20 mg PO DAILY 30 days #30 tabs 10/03/25 10/08/25 Rx New Prescriptions to Start Prescriptions: Allergies Allergy/AdvReac Type Severity Reaction Status Date / Time sacubitril (From Entresto) Allergy Mild itching Verified 10/08/25 14:51 valsartan (From Entresto) Allergy Mild itching Verified 10/08/25 14:51 amiodarone AdvReac Mild Nausea Verified 10/08/25 14:51 spironolactone AdvReac Mild gynecomasti Verified 10/08/25 14:51 a Discharge Plan Disposition Condition: Fair Follow up Plan Prescriptions/Medication Reconciliation: No Action triamcinolone acetonide 0.1 % cream 1 applic topical QID PRN (Reason: itching) Qty: 454 0RF ammonium lactate 12 % cream 1 applic topical BID Qty: 385 1RF Mounjaro 2.5 mg/0.5 mL pen injector 2.5 mg SQ WEEKLY Qty: 2 0RF Rx Instructions: for 4 weeks levocetirizine 5 mg tablet 5 mg PO DAILY Qty: 30 2RF (DME) FreeStyle Deyvi 3 Plus Sensor Device See Rx Instructions .Route Qty: 1 0RF Rx Instructions: As directed (DME) FreeStyle Deyvi 2 [place] Misc See Rx Instructions .Route Qty: 1 0RF Rx Instructions: As directed losartan 25 mg tablet 25 mg PO DAILY Qty: 30 5RF nicotine 14 mg/24 hr patch 24 hour 1 patch transdermal DAILY Qty: 14 0RF nicotine (polacrilex) 2 mg lozenge 2 mg buccal Q6H PRN (Reason: nicotine cravings) Qty: 72 0RF iron sucrose [Venofer] 200 mg iron/10 mL solution 200 mg IV WEEKLY Rx Instructions: administer over 30 mins nitroglycerin 0.4 mg tablet, sublingual 0.4 mg SL NEEDED PRN (Reason: Chest Pain) Qty: 25 3RF Rx Instructions: DISSOLVE 1 TABLET UNDER THE TONGUE EVERY 5 TO 15 MINUTES NEEDED FOR CHEST PAIN. IF NO RELIEF AFTER 3 DOSES CALL 911 lidocaine 5 % ointment 1 applic topical TID PRN (Reason: pain) Qty: 50 1RF febuxostat 80 mg tablet 80 mg PO DAILY Qty: 90 0RF Rx Instructions: TAKE 1 TABLET BY MOUTH ONCE A DAY magnesium sulfate 500 mg/mL (50 %) solution 2 g IV WEEKLY Qty: 50 0RF Xarelto 15 mg tablet 15 mg PO DAILY 30 Days Qty: 30 6RF budesonide-formoterol [Symbicort] 160-4.5 mcg/actuation HFA aerosol inhaler 2 puff PO BID Qty: 10.2 2RF promethazine 25 mg tablet 25 mg PO TID PRN (Reason: nausea and vomiting) Qty: 30 2RF torsemide 20 mg tablet 20 mg PO DAILY 30 Days Qty: 30 0RF albuterol sulfate [ProAir HFA] 90 mcg/actuation HFA aerosol inhaler 1 - 2 puff inhalation Q4HP PRN (Reason: asthma) Rx Instructions: INHALE 2 PUFFS BY MOUTH EVERY 4 TO 6 HOURS NEEDED SHORTNESS OF BREATH OR WHEEZING sennosides [senna] 8.6 mg tablet 17.2 mg PO BID PRN (Reason: Constipation) famotidine 40 mg tablet 40 mg PO BID Rx Instructions: TAKE ONE TABLET BY MOUTH 2 TIMES A DAY FOR ACID REFLUX levothyroxine 50 mcg tablet 50 mcg PO DAILY Rx Instructions: TAKE ONE TABLET BY MOUTH ONCE A DAY pantoprazole 40 mg tablet,delayed release (DR/EC) 40 mg PO DAILY Rx Instructions: TAKE ONE TABLET BY MOUTH ONCE A DAY colchicine 0.6 mg tablet 0.6 mg PO DAILY PRN (Reason: gout) Rx Instructions: TAKE ONE TABLET BY MOUTH ONCE A DAY FOR GOUT, states its PRN, ordered like this for insurance purposes eplerenone 25 mg tablet 25 mg PO DAILY Rx Instructions: TAKE 1 TABLET BY MOUTH ONCE A DAY probenecid 500 mg tablet 500 mg PO BID PRN (Reason: gout) magnesium chloride 64 mg tablet,delayed release (DR/EC) 64 mg PO BID Patient Comments: TAKE 1 TABLET BY MOUTH 2 TIMES A DAY aspirin 81 mg Tablet,Delayed Release (Dr/Ec) 81 mg PO DAILY 30 Days Qty: 30 0RF hydrocodone-acetaminophen 5-325 mg tablet 1 tab PO Q6H PRN (Reason: pain) Qty: 14 0RF bisoprolol fumarate 10 mg tablet 5 mg PO AM bisoprolol fumarate 10 mg Tablet 10 mg PO PM (DME) blood-glucose meter Misc See Rx Instructions .ROUTE .MEDSUPPLY Rx Instructions: As directed (DME) OneTouch Verio test strips Strip See Rx Instructions .ROUTE .MEDSUPPLY Rx Instructions: Check Glucose 4 times daily (DME) lancets 33 gauge misc See Rx Instructions .ROUTE .MEDSUPPLY Rx Instructions: Check Glucose 4 times daily hydroxyzine HCl 50 mg tablet 50 mg PO TID PRN (Reason: Itching) Rx Instructions: TAKE ONE TABLET BY MOUTH 3 TIMES A DAY NEEDED FOR ITCHING fluticasone propionate 50 mcg/actuation spray,suspension 1 spray intranasal DAILY PRN (Reason: Allergy Symptoms) Rx Instructions: USE 1 SPRAY IN EACH NOSTRIL ONCE A DAY FOR ALLERGIES Linzess 145 mcg capsule 145 mcg PO DAILY PRN (Reason: Constipation) Rx Instructions: TAKE ONE CAPSULE BY MOUTH ONCE A DAY Patient Discharge Instructions Print Language: [place] Providers Primary Care Provider: Mingo Weiss Admit Provider: Renato Wagner Attending Provider: Renato Wagner
[2025-10-09 07:22] LABS: Chloride 102 mmol/L (98-107); Sodium 136 mmol/L (136-145)
[2025-10-09 07:23] LABS: Potassium 4.3 mmoL/L (3.5-5.1)
[2025-10-09 07:25] LABS: Blood Urea Nitrogen 50 mg/dl (9-20); Creatinine Clearance Estimated 50 mL/min (50-200); Creatinine,Serum 2.40 mg/dl (0.66-1.25); Estimated Glomerular Filt Rate 28 ml/min (>60); GFR (African American) 34 ML/MIN (>60)
[2025-10-09 07:26] LABS: Anion Gap 15.3 mEq/L (5-15); Calcium 8.9 mg/dl (8.4-10.2); Carbon Dioxide 23 mmol/L (22.0-30.0); Glucose 136 mg/dl (74-100)
--- NOTE | 2025-10-09 07:59 | HMH.PHAINT1 ---
Pharmacy Intervention Comments: MEDICATION RECONCILIATION COMPLETED ON PATIENT USING EXTERNAL FILL HISTORY FROM PHARMACY AND LIST FROM CARDIOLOGY/PCP OFFICE. -JAQUELINE GOLDBERGD
[2025-10-09 08:00] VITALS: BP 120/71; PULSE 69; RESP 18; TEMP 36.6; O2SAT 100
[2025-10-09] MEDS: NICOTINE 21MG/24HR PATCH 21 MG TD (08:25)
[2025-10-09] MEDS: HYDROCODONE/APAP 5/325 MG TABLET 1 TAB PO (08:27)
[2025-10-09] MEDS: BISOPROLOL 5MG TABLET 5 MG PO (09:01)
[2025-10-09] MEDS: FAMOTIDINE 20MG TABLET 40 MG PO (09:02)
[2025-10-09] MEDS: LORATADINE 10MG TABLET 10 MG PO (09:02)
[2025-10-09] MEDS: LEVOTHYROXINE 50MCG (0.05MG) TAB 50 MCG PO (09:02)
[2025-10-09] MEDS: IRBESARTAN 75MG TABLET 37.5 MG PO (09:02)
[2025-10-09] MEDS: TORSEMIDE 20MG TABLET 20 MG PO (09:03)
[2025-10-09] MEDS: PANTOPRAZOLE 40MG TABLET 40 MG PO (09:03)
[2025-10-09 09:46] LABS: Magnesium 1.8 mg/dl (1.6-2.3)
--- NOTE | 2025-10-09 10:28 | P.DS_ITS ---
<Statement entered by Amilcar Strong MD - 10/09/25 13:46> Rounded on patient after nurse practitioner. Personally examined and interviewed patient. Agree with exam findings and care plan as documented. General Admission date:: 10/08/25 Discharge date: 10/09/25 HPI HPI HPI: This is a 60-year-old male with a past medical history of iron deficiency anemia, atrial fibrillation, ischemic cardiomyopathy, HFrEF status post AICD, hypertension, DM2, tobacco use disorder who presents the emergency department today with complaints of chest pain. He reports left-sided chest pain that was sharp in nature. He states that it felt like that his AICD fired. Also reports that the sharp pain is gone away but now has a burning sensation. States it felt like he got kicked in the chest. He underwent AICD placement in August with Dr. García. States that he has been doing well since then. He states that his lower extremity edema has improved and felt like he was doing okay. He reports the pain was sharp and sudden while he was sitting on his chest. He also experienced lightheadedness and blurry vision that was transient. Emergency Department workup notable for mildly elevated troponin at 0.04 with repeat flat at 0.04. Pacemaker AICD was interrogated and noted to have multiple episodes of atrial fibrillation but it does not appear that he had a discharge of his AICD. Renal function is stable at his baseline of 2.6. proBNP of 4888. Given his episode of chest pain and mildly elevated troponin it was felt he would benefit from hospitalization. Dr. García consulted prior to hospitalization and agrees with this plan. Hospital Course Hospital Course Hospital Course: Mr. Guerra is a 60-year-old male who presented to the emergency department yesterday evening after he felt a sudden sharp stabbing in his mid to left chest. Patient has a recent history of SENIOR SAFETY MANAGEMENT CONSULTANT?D placement in August 2025. He has a primary medical history of iron deficient anemia (receiving infusions), atrial fibrillation on anticoagulation, ischemic cardiomyopathy, HFrEF status post AICD, hypertension, type 2 diabetes, tobacco use, CKD stage III, hypothyroid. Workup in the emergency department was notable for mildly elevated troponin of 0.04, peaking at 0.05. Patient's AICD was interrogated in the emergency department and was notable for having episodes of atrial fibrillation but had not discharged. Cardiology was contacted from the emergency department and recommended observation overnight. Patient was admitted to the hospital medicine service. Patient had no events overnight, remained hemodynamically stable. Assessment day of discharge patient denies any chest pain, or episodes of suspected AICD discharge. Patient does endorse chest pressure which he states he feels rather consistently. Cardiology was consulted and patient should follow-up in 1 week. Will initiate patient on ranolazine 500 mg twice daily for angina. Patient had heart cath in July 2025 which showed ischemic heart disease with worsening EF not explained by the degree of CAD. Global hypokinesis, global cardiomyopathy. Patient was initiated on GDMT therapy at that time. Patient not on a SGLT2 due to cost. Lab work shows no anemia, no leukocytosis, kidney function stable at baseline except BUN 50 and creatinine 2.4. Patient had chest x-ray admission which showed no acute findings. Home medication of aspirin 81 mg daily, bisoprolol 5 mg daily, bisoprolol 10 mg at bedtime, Symbicort 2 puffs twice daily, colchicine 0.6 mg as needed for gout, eplerenone 25 mg daily, famotidine 40 mg twice daily, Flonase as needed, hydroxyzine 50 mg 3 times daily as needed, levocetirizine 5 mg daily, l evothyroxine 50 mcg daily, losartan 25 mg daily, magnesium 64 mg twice daily, nicotine patches, pantoprazole 40 mg daily, ranolazine 500 mg twice daily (new Rx), torsemide 20 mg daily, and Xarelto 15 mg daily with meal. Additionally patient has been receiving weekly magnesium and Venofer infusions, though should continue at discharge. Magnesium stable at 1.8. Total time spent on discharge 32 minutes in counseling, documentation, chart review, and direct care with patient. Exam Data for Last 24 hours Vital signs and Labs for Last 24 Hours: Temp Pulse Resp BP Pulse Ox O2 Del Method 97.8 F 69 18 120/71 100 Room Air 10/09/25 08:00 10/09/25 08:00 10/09/25 08:00 10/09/25 08:00 10/09/25 08:00 10/09/25 08:00 Laboratory Results - last 24 hr 10/08/25 14:45: NT-Pro-B Natriuret Pep 4880 H 10/08/25 17:45: WBC 11.4 H, RBC 5.68, Hgb 15.2, Hct 45.8, MCV 80.6, MCH 26.8 L, MCHC 33.2, RDW 20.0 H, Plt Count 356, MPV 8.7, Neut % (Auto) 62.6, Lymph % (Auto) 22.3, [place] % (Auto) 11.7 H, Eos % (Auto) 2.2, Baso % (Auto) 0.8, Neut # (Auto) 7.1, Lymph # (Auto) 2.5, [place] # (Auto) 1.3 H, Eos # (Auto) 0.3, Baso # (Auto) 0.1, PT 13.8 H, INR 1.27 H, APTT 31.2 H, Sodium 135 L, Potassium 4.0, Chloride 98, Carbon Dioxide 20 L, Anion Gap 21.0 H, BUN 49 H, Creatinine 2.60 H, Estimated Creat Clear 47, Estimated GFR 25 L, Est GFR ( Amer) 31 L, Glucose 175 H, Calcium 9.8, Magnesium 1.8 D, Total Bilirubin 0.6, AST 32, ALT 21, Alkaline Phosphatase 120, Troponin I 0.04 H, Total Protein 8.8 H, Albumin 5.0, Globulin 3.8 H, Albumin/Globulin Ratio 1.3, Lipase 129, TSH 1.66, Free T4 1.20 10/08/25 18:39: SARS-CoV-2 (PCR) Not detected, Influenza A Untype (PCR) Not detected, Influenza Type B (PCR) Not detected 10/08/25 20:15: Troponin I 0.04 H 10/09/25 00:43: Troponin I 0.05 H 10/09/25 05:50: WBC 7.1 D, RBC 5.23, Hgb 13.9 L, Hct 42.8, MCV 81.8, MCH 26.6 L , MCHC 32.5, RDW 19.9 H, Plt Count 269, MPV 8.5, Neut % (Auto) 61.4, Lymph % (Auto) 22.4, [place] % (Auto) 12.3 H, Eos % (Auto) 2.7, Baso % (Auto) 0.6, Neut # (Auto) 4.4, Lymph # (Auto) 1.6, [place] # (Auto) 0.9, Eos # (Auto) 0.2, Baso # (Auto) 0.0, Sodium 136, Potassium 4.3, Chloride 102, Carbon Dioxide 23, Anion Gap 15.3 H, BUN 50 H, Creatinine 2.40 H, Estimated Creat Clear 50, Estimated GFR 28 L, Est GFR ( Amer) 34 L, Glucose 136 H D, Calcium 8.9, Magnesium 1.8, Troponin I 0.04 H I & O for Last 24 hours: Intake & Output 10/06/25 10/07/25 10/08/25 10/09/25 23:59 23:59 23:59 23:59 Intake Total 1000 / 1000 240 / 240 Output Total 0 / 0 Balance 1000 / 1000 240 / 240 Weight 107.547 kg 107.543 kg Constitutional Constitutional: no acute distress and chronically ill appearing *Routine HEENT Exam Head: Present normocephalic Eye: Present EOMI and PERRL ENT: Present mucous membranes moist *Routine Neck Exam Neck: Present supple; Absent lymphadenopathy *Routine Respiratory Exam Respiratory: Present CTA bilaterally *Routine Cardiovascular Exam Cardiovascular: Present RRR *Routine Abdominal Exam Abdominal: Present soft and normoactive bowel sounds; Absent tenderness *Routine Extremities Exam Extremities: Absent cyanosis, clubbing or edema *Routine Skin Exam Skin: Present warm; Absent rash *Routine Neurological Exam Neurological: Present alert and oriented X3 Results Data Completed and Pending Labs on day of discharge: Labs from last 24 hours 10/09/25 10/09/25 10/08/25 05:50 00:43 20:15 WBC 7.1 D RBC 5.23 Hgb 13.9 L Hct 42.8 MCV 81.8 MCH 26.6 L MCHC 32.5 RDW 19.9 H Plt Count 269 MPV 8.5 Neut % (Auto) 61.4 Lymph % (Auto) 22.4 [place] % (Auto) 12.3 H Eos % (Auto) 2.7 Baso % (Auto) 0.6 Neut # (Auto) 4.4 Lymph # (Auto) 1.6 [place] # (Auto) 0.9 Eos # (Auto) 0.2 Baso # (Auto) 0.0 PT INR APTT Sodium 136 Potassium 4.3 Chloride 102 Carbon Dioxide 23 Anion Gap 15.3 H BUN 50 H Creatinine 2.40 H Estimated Creat Clear 50 Estimated GFR 28 L Est GFR ( Amer) 34 L Glucose 136 H D Calcium 8.9 Magnesium 1.8 Total Bilirubin AST ALT Alkaline Phosphatase Troponin I 0.04 H 0.05 H 0.04 H NT-Pro-B Natriuret Pep Total Protein Albumin Globulin Albumin/Globulin Ratio Lipase TSH Free T4 SARS-CoV-2 (PCR) Influenza A Untype (PCR) Influenza Type B (PCR) 10/08/25 10/08/25 10/08/25 18:39 17:45 14:45 WBC 11.4 H RBC 5.68 Hgb 15.2 Hct 45.8 MCV 80.6 MCH 26.8 L MCHC 33.2 RDW 20.0 H Plt Count 356 MPV 8.7 Neut % (Auto) 62.6 Lymph % (Auto) 22.3 [place] % (Auto) 11.7 H Eos % (Auto) 2.2 Baso % (Auto) 0.8 Neut # (Auto) 7.1 Lymph # (Auto) 2.5 [place] # (Auto) 1.3 H Eos # (Auto) 0.3 Baso # (Auto) 0.1 PT 13.8 H INR 1.27 H APTT 31.2 H Sodium 135 L Potassium 4.0 Chloride 98 Carbon Dioxide 20 L Anion Gap 21.0 H BUN 49 H Creatinine 2.60 H Estimated Creat Clear 47 Estimated GFR 25 L Est GFR ( Amer) 31 L Glucose 175 H Calcium 9.8 Magnesium 1.8 D Total Bilirubin 0.6 AST 32 ALT 21 Alkaline Phosphatase 120 Troponin I 0.04 H NT-Pro-B Natriuret Pep 4880 H Total Protein 8.8 H Albumin 5.0 Globulin 3.8 H Albumin/Globulin Ratio 1.3 Lipase 129 TSH 1.66 Free T4 1.20 SARS-CoV-2 (PCR) Not detected Influenza A Untype (PCR) Not detected Influenza Type B (PCR) Not detected DS: Diagnosis Discharge Diagnosis (1) Chest pain: Status: Acute Code(s): R07.9 - Chest pain, unspecified (2) Elevated troponin: Status: Acute Code(s): R79.89 - Other specified abnormal findings of blood chemistry (3) Hypothyroidism (acquired): Status: Chronic Code(s): E03.9 - Hypothyroidism, unspecified Problem details: TSH>5 (4) HTN (hypertension): Status: Chronic Code(s): I10 - Essential (primary) hypertension Qualifiers: Hypertension type: primary hypertension Qualified Code(s): I10 - Essential (primary) hypertension (5) CAD (coronary artery disease): Status: Chronic Code(s): I25.10 - Atherosclerotic heart disease of [place] coronary artery without angina pectoris Qualifiers: Associated angina: without angina Coronary Disease-Associated Artery/Lesion type: [place] artery [place] vs. transplanted heart: [place] heart Qualified Code(s): I25.10 - Atherosclerotic heart disease of [place] coronary artery without angina pectoris (6) Type 2 diabetes mellitus: Status: Chronic Code(s): E11.9 - Type 2 diabetes mellitus without complications Qualifiers: Chronic kidney disease stage: stage 3 (moderate) Chronic kidney disease stage 3 subtype: stage 3b (GFR 30-44) Diabetes mellitus complication detail: with chronic kidney disease Diabetes mellitus complication status: with kidney complications Diabetes mellitus long-term insulin use: without long-term use Qualified Code(s): E11.22 - Type 2 diabetes mellitus with diabetic chronic kidney disease; N18.32 - Chronic kidney disease, stage 3b (7) Cardiac resynchronization therapy defibrillator (SENIOR SAFETY MANAGEMENT CONSULTANT-D) in place: Status: Acute Code(s): Z95.810 - Presence of automatic (implantable) cardiac defibrillator (8) Chronic kidney disease (CKD) stage G3b/A1, moderately decreased glomerular filtration rate (GFR) between 30-44 mL/min/1.73 square meter and albuminuria creatinine ratio less than 30 mg/g: Status: Acute Code(s): N18.32 - Chronic kidney disease, stage 3b Meds Home Medications and Allergies Home Medications ?Medication ?Instructions ?Recorded ?Confirmed ?Type blood sugar diagnostic (OneTouch 06/03/23 10/08/25 Nv Zap[employer]our Verio test strips) blood-glucose meter 06/03/23 10/08/25 History lancets 33 gauge 06/03/23 10/08/25 History blood-glucose sensor (FreeStyle #1 ea 08/01/24 5 Rx Deyvi 3 Plus Sensor device) flash glucose scanning reader #1 ea 08/01/24 10/08/25 Rx (FreeStyle Deyvi 2 [place]) fluticasone propionate 50 1 spray intranasal DAILYP DC N 04/04/25 10/09/25 History mcg/actuation nasal Allergy Symptoms spray,suspension hydroxyzine HCl 50 mg tablet 50 mg PO TIDP PRN Itching 04/04/25 10/09/25 History losartan 25 mg tablet 25 mg PO DAILY #30 tabs 01/2310/09/25 Rx nicotine 14 mg/24 hr daily 1 patch transdermal DAILY # 14 ea 07/27/25 10/09/25 Rx transdermal patch colchicine 0.6 mg tablet 0.6 mg PO DAILYP PRN gout 10/09/25 History eplerenone 25 mg tablet 25 mg PO DAILY 08/08/2507/26 History famotidine 40 mg tablet 40 mg PO BID 08/08/25 History levothyroxine 50 mcg tablet 50 mcg PO DAILY 08/08/25 1 12/10/24 History pantoprazole 40 mg tablet,delayed 40 mg PO DAILY 08/0810/09/25 History release sennosides 8.6 mg tablet (senna) 17.2 mg PO BIDP PRN C onstipation 08/08/25 10/09/25 History aspirin 81 mg tablet,delayed 81 mg PO DAILY 30 days #3 0 tabs 08/09/25 10/09/25 Rx release magnesium chloride 64 mg 64 mg PO BID 08/09/25 History (magnesium chloride) tablet,delayed release bisoprolol fumarate 10 mg tablet 10 mg PO HS 08/20/25 10/09/25 History levocetirizine 5 mg tablet 5 mg PO DAILY #30 tabs 08/0210/09/25 Rx tirzepatide 2.5 mg/0.5 mL 2.5 mg (0.5 mL) SQ WEEKLY #2 mL 08/22/25 10/09/25 Rx subcutaneous pen injector (Mounjaro) iron sucrose 200 mg iron/10 mL 200 mg (10 mL) IV WEEKL Y 5 doses 09/13/25 10/09/25 Rx intravenous solution (Venofer) torsemide 20 mg tablet 20 mg PO DAILY 30 days #30 t abs 10/03/25 10/09/25 Rx bisoprolol fumarate 5 mg tablet 5 mg PO DAILY 10/09/25 10/09/25 History budesonide-formoterol HFA 160 2 puff PO BID 10/09/25 1 12/10/24 History mcg-4.5 mcg/actuation aerosol inhaler (Symbicort) latanoprost 0.005 % eye drops 2 drp ophthalmic (eye) H S 10/09/25 10/09/25 History magnesium sulfate 500 mg/mL (50 %) 2 g IV WEEKLY 10/0910/09/25 History injection solution nicotine (polacrilex) 2 mg buccal 2 mg buccal Q6HP PRN nicotine 10/09/25 10/09/25 History lozenge cravings promethazine 25 mg tablet 25 mg PO TIDP PRN nausea and 10/09/25 10/09/25 History vomiting ranolazine 500 mg tablet,extended 500 mg PO BID #60 ta bs 10/09/25 Rx release,12 hr rivaroxaban 15 mg tablet (Xarelto) 15 mg PO QPMWITHMEA L 10/09/25 10/09/25 History New Prescriptions to Start Prescriptions: ranolazine Amilcar Strong Allergies Allergy/AdvReac Type Severity Reaction Status Date / Time sacubitril (From Entresto) Allergy Mild itching Verified 10/08/25 14:51 valsartan (From Entresto) Allergy Mild itching Verified 10/08/25 14:51 amiodarone AdvReac Mild Nausea Verified 10/08/25 14:51 spironolactone AdvReac Mild gynecomasti Verified 10/08/25 14:51 a Discharge Plan Disposition Patient Disposition: Home, Self-Care Condition: Fair Follow up Plan Follow up with: Harish Martins PA [Physician Can Technician, Cardiology] - 10/23/25 10:45 am Mingo Weiss DO [Primary Care Provider, Family Practice] - 10/17/25 10:30 am Prescriptions/Medication Reconciliation: New ranolazine 500 mg tablet extended release 12 hr 500 mg PO BID Qty: 60 0RF Continued Mounjaro 2.5 mg/0.5 mL pen injector 2.5 mg SQ WEEKLY Qty: 2 0RF levocetirizine 5 mg tablet 5 mg PO DAILY Qty: 30 2RF (DME) FreeStyle Deyvi 3 Plus Sensor Device See Rx Instructions .Route Qty: 1 0RF Rx Instructions: As directed (DME) FreeStyle Deyvi 2 [place] Misc See Rx Instructions .Route Qty: 1 0RF Rx Instructions: As directed losartan 25 mg tablet 25 mg PO DAILY Qty: 30 5RF nicotine 14 mg/24 hr patch 24 hour 1 patch transdermal DAILY Qty: 14 0RF iron sucrose [Venofer] 200 mg iron/10 mL solution 200 mg IV WEEKLY Rx Instructions: administer over 30 mins torsemide 20 mg tablet 20 mg PO DAILY 30 Days Qty: 30 0RF sennosides [senna] 8.6 mg tablet 17.2 mg PO BIDP PRN (Reason: Constipation) famotidine 40 mg tablet 40 mg PO BID levothyroxine 50 mcg tablet 50 mcg PO DAILY pantoprazole 40 mg tablet,delayed release (DR/EC) 40 mg PO DAILY colchicine 0.6 mg tablet 0.6 mg PO DAILYP PRN (Reason: gout) eplerenone 25 mg tablet 25 mg PO DAILY magnesium chloride 64 mg tablet,delayed release (DR/EC) 64 mg PO BID Patient Comments: TAKE 1 TABLET BY MOUTH 2 TIMES A DAY aspirin 81 mg Tablet,Delayed Release (Dr/Ec) 81 mg PO DAILY 30 Days Qty: 30 0RF bisoprolol fumarate 10 mg Tablet 10 mg PO HS (DME) blood-glucose meter Misc See Rx Instructions .ROUTE .MEDSUPPLY Rx Instructions: As directed (DME) OneTouch Verio test strips Strip See Rx Instructions .ROUTE .MEDSUPPLY Rx Instructions: Check Glucose 4 times daily (DME) lancets 33 gauge misc See Rx Instructions .ROUTE .MEDSUPPLY Rx Instructions: Check Glucose 4 times daily hydroxyzine HCl 50 mg tablet 50 mg PO TIDP PRN (Reason: Itching) fluticasone propionate 50 mcg/actuation spray,suspension 1 spray intranasal DAILYP PRN (Reason: Allergy Symptoms) latanoprost 0.005 % drops 2 drp ophthalmic (eye) HS bisoprolol fumarate 5 mg tablet 5 mg PO DAILY magnesium sulfate 500 mg/mL (50 %) solution 2 g IV WEEKLY promethazine 25 mg tablet 25 mg PO TIDP PRN (Reason: nausea and vomiting) nicotine (polacrilex) 2 mg lozenge 2 mg buccal Q6HP PRN (Reason: nicotine cravings) budesonide-formoterol [Symbicort] 160-4.5 mcg/actuation HFA aerosol inhaler 2 puff PO BID Xarelto 15 mg tablet 15 mg PO QPMWITHMEAL Problem Reconciliation Problems Reviewed?: Yes Patient Discharge Instructions ACTIVITY: Continue current activity DIET: continue same diet Patient Instructions: DI for Chest Pain Print Language: [place] Providers Primary Care Provider: Mingo Weiss Admmelissa Provider: Renato Wagner Attending Provider: Renato Wagner
[2025-10-09 11:52] LABS: POC Glucose,Bedside 183 gm/dL (70-110)
--- NOTE | 2025-10-09 14:34 | EXP.CARD.CON ---
History of Present Illness History of Present Illness Consult date: 10/09/25 Requesting physician: Amilcar Strong Consult reason: chest pain Chief complaint: chest pain History of present illness: This is a 60-year-old gentleman who presented to the emergency department with chest pain. He states that it felt like his AICD fired and he had the sharp burning sensation in the left side of his chest. He states it felt like someone kicked him. He recently had his AICD placed in August of this year. AICD interrogation showed multiple episodes of atrial fibrillation but no discharge of his AICD. This morning he states his chest pain has resolved. He denies shortness of breath. He denies any fever, chills, nausea, vomiting or diarrhea. [facility] Disclaimer: The information contained in this section may have been updated after the patient was seen, as this information can be updated by other users. Medical History (Updated 10/09/25 @ 14:41 by Monica Azar APRN) Anxiety Paroxysmal atrial fibrillation Atypical angina Dyspnea Encounter for pre-operative cardiovascular clearance Hyponatremia Hypocalcemia Fusion of fourth and fifth metacarpals Gout of right knee Bakers cyst Pain around toenail, left foot Scrotal swelling Epididymitis Femur fracture Scrotal edema CHF (congestive heart failure) Acute on chronic heart failure Edema Diabetes mellitus History of sinus problem Hypothyroidism Glaucoma Anxiety and depression Hypomagnesemia PTSD (post-traumatic stress disorder) Renal insufficiency GERD (gastroesophageal reflux disease) Myocardial infarct HLD (hyperlipidemia) HTN (hypertension) DVT (deep venous thrombosis) CAD (coronary artery disease) CHF (congestive heart failure) Cardiomyopathy Type 2 diabetes mellitus with complication, without long-term current use of insulin Typical angina CKD (chronic kidney disease) 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 Cough Otitis media, left Bronchitis Hyperlipidemia associated with type 2 diabetes mellitus Surgical History AICD (automatic cardioverter/defibrillator) present S/P ORIF (open reduction internal fixation) fracture History of cholecystectomy History of heart artery stent S/P drug eluting coronary stent placement Family History Other Family history of cancer Family history of diabetes mellitus type II Family history of hypertension Social History (Updated 10/08/25 @ 23:03 by Thao Ball RN) Smoking Status: Current every day smoker tobacco type: cigarettes packs per day: 1 pack-years: 40 second hand exposure: No alcohol intake: current alcohol intake frequency: a few times a month substance use type: former substance user and marijuana current occupational status: disabled Travel in the last 8 weeks?: None household members: none housing: apartment lives independently: Yes marital status: single education level: high school service: No senior care: No current occupational exposures/hazards: No caffeine: Yes special veronica needs: No agree to transfusion: No do you feel safe at home: Yes victim of physical abuse: No victim of emotional abuse: No victim of sexual abuse: No would you like helpful sources: No Review of Systems Review of Systems Review of systems:: pertinent systems reviewed and negative unless documented below Constitutional Constitutional: Reports system reviewed and no additional complaints, except as documented Eyes Eyes: Reports system reviewed and no additional complaints, except as documented ENT Ears, Nose, Mouth, and Throat: Reports system reviewed and no additional complaints, except as documented *Cardiovascular Cardiovascular: Reports system reviewed and no additional complaints, except as documented and Reports chest pain *Respiratory Respiratory: Reports system reviewed and no additional complaints, except as documented *Gastrointestinal Gastrointestinal: Reports system reviewed and no additional complaints, except as documented *Genitourinary Genitourinary: Reports system reviewed and no additional complaints, except as documented *Musculoskeletal Musculoskeletal: Reports system reviewed and no additional complaints, except as documented Integumentary/Breasts Skin/Breast: Reports system reviewed and no additional complaints, except as documented *Neurologic Neurologic: Reports system reviewed and no additional complaints, except as documented Psychiatric Psychiatric: Reports system reviewed and no additional complaints, except as documented and Reports anxiety Endocrine Endocrine: Reports system reviewed and no additional complaints, except as documented Hematologic/Lymphatic Hematologic/Lymphatic: Reports system reviewed and no additional complaints, except as documented Allergic/Immunologic Allergic/Immunologic: Reports system reviewed and no additional complaints, except as documented Exam Data for Last 24 hours Vital signs and Labs for Last 24 Hours: Temp Pulse Resp BP Pulse Ox O2 Del Method 97.8 F 69 18 120/71 100 Room Air 10/09/25 08:00 10/09/25 08:00 10/09/25 08:00 10/09/25 08:00 10/09/25 08:00 10/09/25 11:00 Laboratory Results - last 24 hr 10/08/25 14:45: NT-Pro-B Natriuret Pep 4880 H 10/08/25 17:45: WBC 11.4 H, RBC 5.68, Hgb 15.2, Hct 45.8, MCV 80.6, MCH 26.8 L, MCHC 33.2, RDW 20.0 H, Plt Count 356, MPV 8.7, Neut % (Auto) 62.6, Lymph % (Auto) 22.3, Caroline % (Auto) 11.7 H, Eos % (Auto) 2.2, Baso % (Auto) 0.8, Neut # (Auto) 7.1, Lymph # (Auto) 2.5, Caroline # (Auto) 1.3 H, Eos # (Auto) 0.3, Baso # (Auto) 0.1, PT 13.8 H, INR 1.27 H, APTT 31.2 H, Sodium 135 L, Potassium 4.0, Chloride 98, Carbon Dioxide 20 L, Anion Gap 21.0 H, BUN 49 H, Creatinine 2.60 H, Estimated Creat Clear 47, Estimated GFR 25 L, Est GFR ( Amer) 31 L, Glucose 175 H, Calcium 9.8, Magnesium 1.8 D, Total Bilirubin 0.6, AST 32, ALT 21, Alkaline Phosphatase 120, Troponin I 0.04 H, Total Protein 8.8 H, Albumin 5.0, Globulin 3.8 H, Albumin/Globulin Ratio 1.3, Lipase 129, TSH 1.66, Free T4 1.20 10/08/25 18:39: SARS-CoV-2 (PCR) Not detected, Influenza A Untype (PCR) Not detected, Influenza Type B (PCR) Not detected 10/08/25 20:15: Troponin I 0.04 H 10/09/25 00:43: Troponin I 0.05 H 10/09/25 05:50: WBC 7.1 D, RBC 5.23, Hgb 13.9 L, Hct 42.8, MCV 81.8, MCH 26.6 L, MCHC 32.5, RDW 19.9 H, Plt Count 269, MPV 8.5, Neut % (Auto) 61.4, Lymph % (Auto) 22.4, Caroline % (Auto) 12.3 H, Eos % (Auto) 2.7, Baso % (Auto) 0.6, Neut # (Auto) 4.4, Lymph # (Auto) 1.6, Caroline # (Auto) 0.9, Eos # (Auto) 0.2, Baso # (Auto) 0.0, Sodium 136, Potassium 4.3, Chloride 102, Carbon Dioxide 23, Anion Gap 15.3 H, BUN 50 H, Creatinine 2.40 H, Estimated Creat Clear 50, Estimated GFR 28 L, Est GFR ( Amer) 34 L, Glucose 136 H D, Calcium 8.9, Magnesium 1.8, Troponin I 0.04 H 10/09/25 11:42: POC Glucose 183 H I & O for Last 24 hours: Intake & Output 10/06/25 10/07/25 10/08/25 10/09/25 23:59 23:59 23:59 23:59 Intake Total 1000 / 1000 240 / 240 Output Total 0 / 0 Balance 1000 / 1000 240 / 240 Weight 237 lb 1.6 oz 237 lb 1.467 oz Constitutional Constitutional: no acute distress and average body habitus *Routine HEENT Exam Head: Present normocephalic and atraumatic ENT: Present mucous membranes moist *Routine Neck Exam Neck: Present supple, full ROM and normal carotid upstroke; Absent JVD, carotid bruit or lymphadenopathy *Routine Respiratory Exam Respiratory: Present CTA bilaterally, normal respiratory effort, able to speak in complete sentences and symmetric chest movement *Routine Cardiovascular Exam Cardiovascular: Present RRR, Normal S1 and Normal S2; Absent murmur or gallop *Routine Abdominal Exam Abdominal: Present soft and normoactive bowel sounds; Absent tenderness, distended or organomegaly *Routine Extremities Exam Extremities: Present full ROM, pulses intact and normal capillary refill; Absent cyanosis, clubbing or edema *Routine Skin Exam Skin: Present intact and warm; Absent erythema *Routine Neurological Exam Neurological: Present alert, oriented X3 and CN II-XII intact; Absent sensory deficit or motor deficit Routine Psychiatric Exam Psychiatric: Present normal affect Meds Home Medications and Allergies Home Medications ?Medication ?Instructions ?Recorded ?Confirmed ?Type blood sugar diagnostic (OneTouch 06/03/23 10/08/25 History Verio test strips) blood-glucose meter 06/03/23 10/08/25 History lancets 33 gauge 06/03/23 10/08/25 History blood-glucose sensor (FreeStyle #1 ea 08/01/24 10/08/25 Rx Deyvi 3 Plus Sensor device) flash glucose scanning reader #1 ea 08/01/24 10/08/25 Rx (FreeStyle Deyvi 2 [place]) fluticasone propionate 50 1 spray intranasal DAILYP PRN 04/04/25 10/09/25 History mcg/actuation nasal Allergy Symptoms spray,suspension hydroxyzine HCl 50 mg tablet 50 mg PO TIDP PRN Itching 04/04/25 10/09/25 History losartan 25 mg tablet 25 mg PO DAILY #30 tabs 07/04/25 10/09/25 Rx nicotine 14 mg/24 hr daily 1 patch transdermal DAILY #14 ea 07/27/25 10/09/25 Rx transdermal patch colchicine 0.6 mg tablet 0.6 mg PO DAILYP PRN gout 08/08/25 10/09/25 History eplerenone 25 mg tablet 25 mg PO DAILY 08/08/25 10/09/25 History famotidine 40 mg tablet 40 mg PO BID 08/08/25 10/09/25 History levothyroxine 50 mcg tablet 50 mcg PO DAILY 08/08/25 10/09/25 History pantoprazole 40 mg tablet,delayed 40 mg PO DAILY 08/08/25 10/09/25 History release sennosides 8.6 mg tablet (senna) 17.2 mg PO BIDP PRN Constipation 08/08/25 10/09/25 History aspirin 81 mg tablet,delayed 81 mg PO DAILY 30 days #30 tabs 08/09/25 10/09/25 Rx release magnesium chloride 64 mg 64 mg PO BID 08/09/25 10/09/25 History (magnesium chloride) tablet,delayed release bisoprolol fumarate 10 mg tablet 10 mg PO HS 08/20/25 10/09/25 History levocetirizine 5 mg tablet 5 mg PO DAILY #30 tabs 08/22/25 10/09/25 Rx tirzepatide 2.5 mg/0.5 mL 2.5 mg (0.5 mL) SQ WEEKLY #2 mL 08/22/25 10/09/25 Rx subcutaneous pen injector (Katharina) iron sucrose 200 mg iron/10 mL 200 mg (10 mL) IV WEEKLY 5 doses 09/13/25 10/09/25 Rx intravenous solution (Venofer) torsemide 20 mg tablet 20 mg PO DAILY 30 days #30 tabs 10/03/25 10/09/25 Rx bisoprolol fumarate 5 mg tablet 5 mg PO DAILY 10/09/25 10/09/25 History budesonide-formoterol HFA 160 2 puff PO BID 10/09/25 10/09/25 History mcg-4.5 mcg/actuation aerosol inhaler (Symbicort) latanoprost 0.005 % eye drops 2 drp ophthalmic (eye) HS 10/09/25 10/09/25 History magnesium sulfate 500 mg/mL (50 %) 2 g IV WEEKLY 10/09/25 10/09/25 History injection solution nicotine (polacrilex) 2 mg buccal 2 mg buccal Q6HP PRN nicotine 10/09/25 10/09/25 History lozenge cravings promethazine 25 mg tablet 25 mg PO TIDP PRN nausea and 10/09/25 10/09/25 History vomiting ranolazine 500 mg tablet,extended 500 mg PO BID #60 tabs 10/09/25 Rx release,12 hr rivaroxaban 15 mg tablet (Xarelto) 15 mg PO QPMWITHMEAL 10/09/25 10/09/25 History New Prescriptions to Start Prescriptions: ranolazine Amilcar Strong Allergies Allergy/AdvReac Type Severity Reaction Status Date / Time sacubitril (From Entresto) Allergy Mild itching Verified 10/08/25 14:51 valsartan (From Entresto) Allergy Mild itching Verified 10/08/25 14:51 amiodarone AdvReac Mild Nausea Verified 10/08/25 14:51 spironolactone AdvReac Mild gynecomasti Verified 10/08/25 14:51 a Assessment and Plan *Assessment and plan (1) Chest pain: Status: Acute Qualifiers: Chest pain type: other chest pain Qualified Code(s): R07.89 - Other chest pain Category: Medical Code(s): R07.9 - Chest pain, unspecified (2) Elevated troponin: Status: Acute Category: Medical Code(s): R79.89 - Other specified abnormal findings of blood chemistry (3) Iron (Fe) deficiency anemia: Status: Acute Qualifiers: Iron deficiency anemia type: inadequate dietary iron intake Qualified Code(s): D50.8 - Other iron deficiency anemias Category: Medical Code(s): D50.9 - Iron deficiency anemia, unspecified (4) Cardiac resynchronization therapy defibrillator (FIELD SUPERVISOR-D) in place: Status: Acute Category: Medical Code(s): Z95.810 - Presence of automatic (implantable) cardiac defibrillator (5) Ischemic cardiomyopathy: Status: Acute Category: Medical Code(s): I25.5 - Ischemic cardiomyopathy (6) CAD (coronary artery disease): Status: Chronic Qualifiers: Coronary Disease-Associated Artery/Lesion type: [place] artery [place] vs. 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 use: without intermodal owner operator truck driver use Diabetes mellitus complication status: with kidney complications Diabetes mellitus complication detail: with chronic kidney disease Chronic kidney disease stage: stage 3 (moderate) Chronic kidney disease stage 3 subtype: stage 3b (GFR 30-44) Qualified Code(s): E11.22 - Type 2 diabetes mellitus with diabetic chronic kidney disease; N18.32 - Chronic kidney disease, stage 3b Category: Medical Code(s): E11.9 - Type 2 diabetes mellitus without complications (9) Hypertension: Status: Chronic Qualifiers: Hypertension type: primary hypertension Qualified Code(s): I10 - Essential (primary) hypertension Category: Medical Code(s): I10 - Essential (primary) hypertension (10) Hyperlipidemia: Status: Chronic Qualifiers: Hyperlipidemia type: mixed hyperlipidemia Qualified Code(s): E78.2 - Mixed hyperlipidemia Category: Medical Code(s): E78.5 - Hyperlipidemia, unspecified (11) Paroxysmal atrial fibrillation: Problem Comment: On Xarelto Status: Chronic Category: Medical Code(s): I48.0 - Paroxysmal atrial fibrillation (12) Anxiety: Status: Chronic Category: Medical Code(s): F41.9 - Anxiety disorder, unspecified Plan Plan: 1. The patient presented to the emergency department chest pain. He states he felt as if his AICD fired. Interrogation showed that he had no shock delivered from his AICD. 2. The patient did have multiple episodes of paroxysmal atrial fibrillation. He is rate controlled. He is on Xarelto for long-term anticoagulation. 3. The patient would like to be referred to an tile setter supervisor for consideration of ablation. Will have this set up on as an outpatient. 4. The patient did have slightly elevated troponin. However patient had recent cardiac catheterization which showed patent coronary artery disease. No plans for repeat left cardiac catheterization at this time. 5. His CAD is likely stable. Continue aspirin. 6. His blood pressure is well-controlled. Continue bisoprolol. 7. His LDL goal is less than 55. 8. The patient does have HFrEF. Continue torsemide and losartan. 9. Will start him on Ranexa 500 mg p.o. twice daily for angina. 10. The patient states that he has has a lot of anxiety going on right now after the of his mother and his multiple health issues. He states that he is yaw discuss this with his PCP. 11. No further recommendations at this time from a cardiac standpoint. The patient can be discharged home today from a cardiac standpoint and follow-up in cardiology clinic in 1 to 2 weeks on an outpatient basis. Thank you for the opportunity to help participate in the care of this patient. All recommendations and orders are per Dr. Clements.
[2025-10-09 14:41] LABS: POC Glucose,Bedside 184 gm/dL (70-110)
--- NOTE | 2025-10-11 11:11 | SW/DCPLANNER ---
Spoke with patient on the phone. Patient stated that he is doing good just sore. Patient stated that he is aware of his upcoming appointments. Patient stated that he was able to pickers material handlers his new medicine from the pharmacy. Patient stated that he has no concerns or questions at this time. Dania Kyle
== END 2025-10-09 12:31 | disposition home or self-care (01) ==
LOC: ER 21:40 → 2ND 21:47
PROVIDERS: Nurse Practitioner; Nurse Practitioner Acute Care; Admitting Provider Student in an Organized Health Care Education/Training Program; Emergency Provider Student in an Organized Health Care Education/Training Program; PCP Internal Medicine; Visit Provider Student in an Organized Health Care Education/Training Program
DX: R07.9 Chest pain, unspecified (principal); M10.9 Gout, unspecified; R79.89 Other specified abnormal findings of blood chemistry; D50.9 Iron deficiency anemia, unspecified; Z95.810 Presence of automatic (implantable) cardiac defibrillator; F41.9 Anxiety disorder, unspecified; F32.A Depression, unspecified; I25.10 Atherosclerotic heart disease of native coronary artery without angina pectoris; K21.9 Gastro-esophageal reflux disease without esophagitis; E03.9 Hypothyroidism, unspecified; E66.01 Morbid (severe) obesity due to excess calories; F17.210 Nicotine dependence, cigarettes, uncomplicated; F43.12 Post-traumatic stress disorder, chronic; I48.0 Paroxysmal atrial fibrillation; E11.22 Type 2 diabetes mellitus with diabetic chronic kidney disease; E78.5 Hyperlipidemia, unspecified; I13.0 Hypertensive heart and chronic kidney disease with heart failure and stage 1 through stage 4 chronic kidney disease, or unspecified chronic kidney disease; I50.23 Acute on chronic systolic (congestive) heart failure; I25.5 Ischemic cardiomyopathy; N18.30 Chronic kidney disease, stage 3 unspecified; G25.81 Restless legs syndrome; R94.31 Abnormal electrocardiogram [ECG] [EKG]; Z90.49 Acquired absence of other specified parts of digestive tract; Z95.1 Presence of aortocoronary bypass graft; Z83.3 Family history of diabetes mellitus; Z82.49 Family history of ischemic heart disease and other diseases of the circulatory system; Z88.8 Allergy status to other drugs, medicaments and biological substances; Z86.718 Personal history of other venous thrombosis and embolism; Z86.73 Personal history of transient ischemic attack (TIA), and cerebral infarction without residual deficits; Z79.899 Other long term (current) drug therapy; Z79.890 Hormone replacement therapy; Z79.01 Long term (current) use of anticoagulants; Z87.81 Personal history of (healed) traumatic fracture; Z79.82 Long term (current) use of aspirin
CPT/HCPCS: 36415; 71045; 80048; 80053; 82962; 83690; 83735; 83880; 84439; 84443; 84484; 85025; 85610; 85730; 87636; 93005; 96361; 96374; 96375; 96376; 99285; G0378; J2270; J2405; J7030

== ENCOUNTER 2025-10-15 12:18 | Outpatient (CLI) | payer OTHER, SELFPAY ==
[2025-10-15 12:21] VITALS: BMI 35.1
[2025-10-15] MEDS: SODIUM CHLORIDE 0.9% 10ML FLUSH SYRINGE 10 ML IV (12:39)
[2025-10-15 12:40] VITALS: BP 105/79; PULSE 67; RESP 14; TEMP 36.6; O2SAT 97
[2025-10-15] MEDS: IRON SUCROSE COMPLEX 200 MG in 0.9 % SODIUM CHLORIDE 100 ML 220 MG IV (12:40)
[2025-10-15 12:55] LABS: Chloride 101 mmol/L (98-107); Potassium 4.6 mmoL/L (3.5-5.1); Sodium 131 mmol/L (136-145)
[2025-10-15 12:58] LABS: Anion Gap 10.6 mEq/L (5-15); Blood Urea Nitrogen 51 mg/dl (9-20); Calcium 8.9 mg/dl (8.4-10.2); Carbon Dioxide 24 mmol/L (22.0-30.0); Creatinine Clearance Estimated 38 mL/min (50-200); Creatinine,Serum 3.20 mg/dl (0.66-1.25); Estimated Glomerular Filt Rate 20 ml/min (>60); GFR (African American) 24 ML/MIN (>60); Glucose 169 mg/dl (74-100)
[2025-10-15 12:59] LABS: Magnesium 1.3 mg/dl (1.6-2.3)
[2025-10-15] MEDS: MAGNESIUM SULFATE IN WATER 2 GM/50 ML PIGGYBACK IV (13:27)
[2025-10-15 13:30] VITALS: BP 118/77; PULSE 69; RESP 14; O2SAT 96
[2025-10-15 14:27] VITALS: BP 107/68; PULSE 69; RESP 16; O2SAT 96
== END 2025-10-15 23:59 | disposition home or self-care (01) ==
LOC: INF 12:19
PROVIDERS: PCP Internal Medicine; Visit Provider Internal Medicine
DX: E83.42 Hypomagnesemia (principal)
CPT/HCPCS: 80048; 83735; 96365; 96367; J1756; J3475

== ENCOUNTER 2025-10-23 11:39 | Outpatient (CLI) | payer OTHER, SELFPAY ==
[2025-10-23 11:41] VITALS: BMI 35.1
--- OUTSIDE RECORDS SUMMARY | 2025-10-23 11:43 | XMS_ITS | Clinical Summary ---
Author Organization [facility] yste Address [address] [address] Care Team Providers Care Valve Setter Name Role Phone Mingo Weiss Primary Care [...] of 2) 2016 INFLUENZA VACCINE 06/01/2025 Insurance [facility] [employer] [place] Care Teams Valve Setter Relationship Specialty Start Date End Date Mingo Weiss DO [address] [place] [id number] PCP - General Internal Medicine 03/09/24
--- OUTSIDE RECORDS SUMMARY | 2025-10-23 11:43 | XMS_ITS | Clinical Summary ---
Author Organization Healthcare Address [address] [place] [address] Care Team Providers Care Hazardous Material Technician Name Role Phone Chacho Gutierrez MD Primary Care Provider + [phone] Allergies Active Allergy Reactions Criticality Noted Date [...] 10 MG capsule 3 Active HYDROcodone-leonard taminophen ([place]) 5-325 MG tablet Active hydrocortisone 2.5 % [...] Team Description 08/08/2025 Orders Only External Location [address] [place] [id number] Provider, External from Last 3 Months Immunizations [...] Date Smoking Tobacco: Every Day Cigarettes 0.5 40 Started: 1985 Passive Smoke Exposure: Current Smokeless [...] 09/07/2022 09/07/2017, 09/07/2017 [facility]-Depression Screening 12/14/2024 12/14/2023 [id number] Vaccine ( season) 2025 11/06/2021, 02/12/2021, 01/15/2021 [facility]-Influenza Vaccine (#1) 07/02/202511/06, 09/06/2020, 08/30/2019, Additional history exists [facility]-Hepatitis A Vaccines Aged Out 04/29/2019, 12/2 04/2018 No longer eligible based on patient's age to complete this topic [facility]-Obesity Intervention Completed 024, 03/03/2024, 02/15/2024, Additional history exists HPV Vaccines (No Doses Required) Completed [facility]-HIB Vaccines Aged Out No longer e ligible based on patient's age to complete this topic [facility]-IPV Vaccines Aged Out No longer e ligible based on patient's age to complete this topic [facility]-Rotavirus Vaccines Aged Out No lo nger eligible based on patient's age to complete this topic Medical Devices Implanted Type Area Grocery Worker Device Identifier Shelf Expiration Date Model / Serial / Lot Unknown Femur K-Wire Dual Trocar 035 X 152mm - [id number] Implanted:Qty: 1 on 01/28/2024 by Juan Francisco MD at [facility] Left: [place] [id number] 12/21/2026 [id number] / / [id number] Procedures Procedure Name Priority Date/Time Associated Diagnosis Comments CT OUTSIDE IMAGES 08/08/2025 10:26 PM EDT from Last 3 Months Results * CT OUTSIDE IMAGES (08/08/2025 10:26 PM EDT) Anatomical Region Laterality Modality Computed Tomogra phy 08/08/2025 10:2 6 PM EDT us External Provider IMG CT PROCEDURES Edited Resul t - Final from Last 3 Months Insurance [facility] [facility] MEDICAID Care Teams Hazardous Material Technician Relationship Specialty Start Date End Date Chacho Gutierrez MD [address] [place] [address] PCP - General 03/14/21
[2025-10-23 11:55] VITALS: BP 133/67; PULSE 79; RESP 14; TEMP 36.6; O2SAT 98
[2025-10-23] MEDS: MAGNESIUM SULFATE IN WATER 2 GM/50 ML PIGGYBACK IV (11:55)
[2025-10-23] MEDS: SODIUM CHLORIDE 0.9% 10ML FLUSH SYRINGE 10 ML IV (11:55)
[2025-10-23 12:17] LABS: Chloride 99 mmol/L (98-107); Potassium 5.2 mmoL/L (3.5-5.1); Sodium 132 mmol/L (136-145)
[2025-10-23 12:20] LABS: Anion Gap 11.2 mEq/L (5-15); Blood Urea Nitrogen 31 mg/dl (9-20); Carbon Dioxide 27 mmol/L (22.0-30.0); Creatinine Clearance Estimated 53 mL/min (50-200); Creatinine,Serum 2.30 mg/dl (0.66-1.25); Estimated Glomerular Filt Rate 29 ml/min (>60); GFR (African American) 35 ML/MIN (>60)
[2025-10-23 12:21] LABS: Calcium 10.1 mg/dl (8.4-10.2); Glucose 145 mg/dl (74-100); Magnesium 1.1 mg/dl (1.6-2.3)
[2025-10-23 12:55] VITALS: BP 138/70; PULSE 70; RESP 14; O2SAT 98
[2025-10-23] MEDS: IRON SUCROSE COMPLEX 200 MG in 0.9 % SODIUM CHLORIDE 100 ML 220 MG IV (13:03)
[2025-10-23 13:40] VITALS: BP 114/68; PULSE 72; RESP 16; O2SAT 97
== END 2025-10-23 23:59 | disposition home or self-care (01) ==
LOC: INF 11:41
PROVIDERS: PCP Internal Medicine; Visit Provider Internal Medicine
DX: D50.9 Iron deficiency anemia, unspecified (principal)
CPT/HCPCS: 80048; 83735; 96365; J1756; J3475

== ENCOUNTER 2025-10-29 12:07 | Outpatient (CLI) | payer OTHER, SELFPAY ==
--- OUTSIDE RECORDS SUMMARY | 2025-10-29 12:10 | XMS_ITS | Clinical Summary ---
Author Organization [facility] yste Address [address] [place] [address] Care Team Providers Care Fur Trapper Name Role Phone Mingo Weiss Primary Care [...] VACCINE 06/01/2025 Insurance [facility] [place] Care Teams Fur Trapper Relationship Specialty Start Date End Date Mingo Weiss DO [address] [place] [id number] PCP - General Internal Medicine 03/09/24
--- OUTSIDE RECORDS SUMMARY | 2025-10-29 12:10 | XMS_ITS | Clinical Summary ---
Author Organization Healthcare Address [address] [place] [address] Care Team Providers Care Financial Underwriter Name Role Phone Chacho Gutierrez MD Primary Care Provider + [phone] Allergies Active Allergy Reactions Criticality Noted Date [...] 10 MG capsule 3 Active HYDROcodone-leonard taminophen ([place]) 5-325 MG tablet Active hydrocortisone 2.5 % [...] Team Description 08/08/2025 Orders Only External Location [address] [place] [id number] Provider, External from Last 3 Months Immunizations [...] 09/07/2022 09/07/2017, 09/07/2017 [facility]-Depression Screening 12/14/2024 12/14/2023 [id number] Vaccine ( season) 2025 11/06/2021, 02/12/2021, 01/15/2021 [...] this topic Medical Devices Implanted Type Area Electric Freight Car Operator Device Identifier Shelf Expiration Date Model / Serial / Lot Unknown Femur K-Wire Dual Trocar 035 X 152mm - [id number] Implanted:Qty: 1 on 01/28/2024 by Juan Francisco MD at [facility] Left: [place] [id number] 12/21/2026 [id number] / / [id number] Procedures Procedure Name Priority Date/Time Associated Diagnosis Comments CT OUTSIDE IMAGES 08/08/2025 10:26 PM EDT from Last 3 Months Results * CT OUTSIDE IMAGES (08/08/2025 10:26 PM EDT) Anatomical Region Laterality Modality Computed Tomogra phy 08/08/2025 10:2 6 PM EDT us External Provider IMG CT PROCEDURES Edited Resul t - Final from Last 3 Months Insurance [employer]ETNA [facility] MEDICAID Care Teams Financial Underwriter Relationship Specialty Start Date End Date Chacho Gutierrez MD [address] [place] [address] PCP - General 03/14/21
[2025-10-29 12:23] VITALS: BMI 35.1
[2025-10-29 12:32] VITALS: BP 134/88; PULSE 70; RESP 14; TEMP 36.7; O2SAT 100
[2025-10-29] MEDS: MAGNESIUM SULFATE IN WATER 2 GM/50 ML PIGGYBACK IV (12:32)
[2025-10-29] MEDS: SODIUM CHLORIDE 0.9% 10ML FLUSH SYRINGE 10 ML IV (12:32)
[2025-10-29 12:34] LABS: Chloride 98 mmol/L (98-107); Potassium 4.6 mmoL/L (3.5-5.1); Sodium 134 mmol/L (136-145)
[2025-10-29 12:37] LABS: Anion Gap 10.6 mEq/L (5-15); Blood Urea Nitrogen 23 mg/dl (9-20); Calcium 9.8 mg/dl (8.4-10.2); Carbon Dioxide 30 mmol/L (22.0-30.0); Creatinine Clearance Estimated 58 mL/min (50-200); Creatinine,Serum 2.10 mg/dl (0.66-1.25); Estimated Glomerular Filt Rate 32 ml/min (>60); GFR (African American) 39 ML/MIN (>60); Glucose 174 mg/dl (74-100); Magnesium 1.2 mg/dl (1.6-2.3)
[2025-10-29 13:32] VITALS: BP 135/87; PULSE 71; RESP 14; O2SAT 99
== END 2025-10-29 23:59 | disposition home or self-care (01) ==
LOC: INF 12:08
PROVIDERS: PCP Internal Medicine; Visit Provider Internal Medicine
DX: D50.9 Iron deficiency anemia, unspecified (principal)
CPT/HCPCS: 80048; 83735; 96365; J3475